=== PATIENT | female | born 1955 | race American Indian/Alaskan Native ===

== ENCOUNTER 2016-07-08 12:56 | Outpatient (CLI) | payer MEDICARE ==
--- NOTE | 2016-07-08 13:44 | Mammography Report ---
BILATERAL MAMMOGRAM: FINDINGS: Baseline examination. The breast tissue is extremely dense (>75% glandular). This may lower the sensitivity of mammography. No mass, distortion, suspicious calcification, or skin change is seen. CAD was utilized. IMPRESSION: Negative mammogram. There is no mammographic evidence of malignancy. RECOMMENDATION: Follow-up per ACS guidelines. BI-RADS CATEGORY: 1 = Negative ACR BI-RADS MAMMOGRAPHIC CODES: 0 = Needs additional imaging evaluation; 1 = Negative; 2 = Benign; 3 = Probably benign; 4 = Suspicious; 5 = Malignant; 6 = Known biopsy-proven malignancy COMMENT: 1. Dense breast tissue, i.e., adenosis, fibrocystic changes, etc., may obscure an underlying neoplasm. 2. Approximately 10% of cancers are not detected with mammography. 3. A negative mammography report should not delay biopsy if a clinically suspicious mass is present. COMMENT: Patient follow-up letters are generated in [place].
== END 2016-07-08 12:57 | disposition home or self-care (01) ==
LOC: MAMMO 12:56
PROVIDERS: ATTEND Internal Medicine
DX: Z12.31 Encounter for screening mammogram for malignant neoplasm of breast (principal)
CPT/HCPCS: 77067; G0202

== ENCOUNTER 2016-07-23 00:07 | Inpatient (IN) | payer MEDICARE ==
[2016-07-23] MEDS ORDERED: TYLENOL PO ONE ×2 (00:18→01:38)
[2016-07-23 00:46] LABS: Eosinophils % (Auto) 0.4 % (0.0-4.3); Hematocrit 49.2 % (30.3-42.9); Hemoglobin 16.3 gm/dl (10.1-14.3); Mean Corpuscular HGB Conc 33 % (30-34); Mean Corpuscular Hemoglobin 33 pg (28-32); Mean Corpuscular Volume 100 fl (79-97); Platelet Count 176 K/mm3 (140-440); Red Blood Count 4.91 M/mm3 (3.65-5.03); Red Cell Distribution Width 13.4 % (13.2-15.2); White Blood Count 7.6 K/mm3 (4.5-11.0)
[2016-07-23 01:05] LABS: BUN/Creatinine Ratio 14.28; Blood Urea Nitrogen 10 mg/dL (7-17); Calcium 9.1 mg/dL (8.4-10.2); Carbon Dioxide 33 mmol/L (22-30); Chloride 93.8 mmol/L (98-107); Glucose 85 mg/dL (65-100); Potassium 4.3 mmol/L (3.6-5.0); Sodium 137 mmol/L (137-145)
[2016-07-23 01:06] LABS: Anion Gap 15 mmol/L
[2016-07-23] MEDS ORDERED: XOPENEX IH ONE ×3 (01:38→08:30)
[2016-07-23] MEDS ORDERED: ZITHROMAX 500 MG in NACL 0.9% 250ML 250 ML IV ONE (01:39)
[2016-07-23] MEDS ORDERED: ROCEPHIN/NS 1 GM/50 ML 1 GM/50 ML BAG IV ONE ×2 (03:00→05:32)
[2016-07-23] MEDS ORDERED: ATIVAN PO ONE (03:04)
--- NOTE | 2016-07-23 03:05 | Emergency Department Report ---
ED Shortness of Breath HPI - General Chief Complaint: Dyspnea/Respdistress Stated Complaint: ANTHONY Time Seen by Provider: 07/23/16 01:34 Source: patient, EMS Mode of arrival: Stretcher Limitations: Other - History of Present Illness Initial Comments: 61 yo female with a past medical history of COPD oxygen dependent, asthma, and history of intubations presents to the hospital complaints of fever, cough, shortness of breath 1 day. Cough productive of brown sputum. This did not receive a flu shot this year. Patient complains of chest tightness associated with wheezing shortness of breath that is moderate to severe. A beer a 5 mg given prior to arrival. 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 - Related Data Home Medications Medication Instructions Recorded Confirmed Last Taken ALBUTEROL Inhaler [ProAir HFA 2 puff IH QID PRN 05/17/16 07/23/16 05/16/16 Inhaler] Prednisone [predniSONE 5 mg (6-Day 20 mg PO .TAPER 07/23/16 07/23/16 Unknown Pack, 21 Tabs)] Previous Rx's Medication Instructions Recorded Last Taken Type LORazepam [Ativan] 1 mg PO TID PRN #30 tablet 05/29/15 05/16/16 Rx Montelukast [Singulair] 10 mg PO QHS #30 tablet 04/21/16 05/16/16 Rx ALBUTEROL NEB's [Proventil 0.083% 2.5 mg IH Q2HR PRN #30 nebu 05/19/16 Unknown Rx NEBS] Allergies Allergy/AdvReac Type Severity Reaction Status Date / Time peanut Allergy Angioedema Verified 07/23/16 00:17 ipratropium bromide AdvReac Shortness Verified 09/11/13 07:39 [From Atrovent] of Breath ED Review of Systems ROS: Stated complaint: ANTHONY Other details as noted in HPI Comment: All other systems reviewed and negative Other: Constitutional: as per hpi Eyes: No eye pain visual changes ENT: No ear pain or throat pain Neck: Denies pain Respiratory: as per hpi Cardiovascular: Denies palpitations, syncope GI: Denies abdominal pain, nausea, vomiting, diarrhea : Denies dysuria, urinary frequency, or urgency Musculoskeletal: Denies back pain Skin: Denies rash, lesions, erythema Neurologic: Denies headache, numbness, weakness Psychiatric: Denies suicidal ideation, hallucinations ED Past Medical Hx - Past Medical History Previous Medical History?: Yes Hx Congestive Heart Failure: No Hx Diabetes: No Hx Asthma: Yes Hx COPD: Yes Hx Dementia: No Hx HIV: No Additional medical history: hx intubation - Surgical History Past Surgical History?: No - Social History Smoking Status: Former Smoker Substance Use Type: None - Medications Home Medications: Home Medications Medication Instructions Recorded Confirmed Last Taken Type LORazepam [Ativan] 1 mg PO TID PRN #30 tablet 05/29/15 07/23/16 05/16/16 Rx Montelukast [Singulair] 10 mg PO QHS #30 tablet 04/21/16 07/23/16 05/16/16 Rx ALBUTEROL Inhaler [ProAir HFA 2 puff IH QID PRN 05/17/16 07/23/16 05/16/16 History Inhaler] ALBUTEROL NEB's [Proventil 0.083% 2.5 mg IH Q2HR PRN #30 nebu 05/19/16 07/23/16 Unknown Rx NEBS] Prednisone [predniSONE 5 mg (6-Day 20 mg PO .TAPER 07/23/16 07/23/16 Unknown History Pack, 21 Tabs)] ED Physical Exam - General Limitations: Other - Other Other exam information: General: No limitations, patient is alert in no acute distress Head exam: Atraumatic, normocephalic Eyes exam: Normal appearance ENT: Moist mucous membrane, normal oropharynx Neck exam: Normal inspection, full range of motion Respiratory exam: Diminished breath sounds, tachypnea, mild expiratory wheezing Cardiovascular: Tachycardic regular rate Abdomen: Soft, nondistended, and nontender, with normal bowel sounds, no rebound, or guarding Extremity: Full range of motion normal inspection no deformity, no calf tenderness or edema Back: Normal Inspection, full range of motion, no tenderness Neurologic: Alert, oriented x3, cranial nerves intact, no motor or sensory deficit Psychiatric: normal affect, normal mood Skin: Warm, dry, intact ED Course Vital Signs 07/23/16 07/23/16 07/23/16 00:11 00:39 01:50 Temperature 102.6 F H Pulse Rate 130 H Pulse Rate [ 117 H Bilateral Throughout] Respiratory 27 H 24 Rate Respiratory 24 Rate [Bilateral Throughout] Blood Pressure 193/91 Blood Pressure 193/91 [Right] O2 Sat by Pulse 94 95 Oximetry 07/23/16 02:24 Temperature Pulse Rate Pulse Rate [ 119 H Bilateral Throughout] Respiratory Rate Respiratory 24 Rate [Bilateral Throughout] Blood Pressure Blood Pressure [Right] O2 Sat by Pulse Oximetry - Reevaluation(s) Reevaluation #1: 07/23/16 03:29 Patient treated with Solu-Medrol, Xopenex, Rocephin, azithromycin, and Tylenol with minimal improvement in symptoms. Ativan given as per requested to calm her down 07/23/16 03:30 ED Medical Decision Making - Lab Data Result diagrams: 07/23/16 00:32 07/23/16 00:32 Lab Results 07/23/16 07/23/16 Range/Units 00:32 00:32 WBC 7.6 (4.5-11.0) K/mm3 RBC 4.91 (3.65-5.03) M/mm3 Hgb 16.3 H (10.1-14.3) gm/dl Hct 49.2 H (30.3-42.9) % MCV 100 H (79-97) fl MCH 33 H (28-32) pg MCHC 33 (30-34) % RDW 13.4 (13.2-15.2) % Plt Count 176 (140-440) K/mm3 Lymph % (Auto) 14.6 (13.4-35.0) % [place] % (Auto) 3.9 (0.0-7.3) % Eos % (Auto) 0.4 (0.0-4.3) % Baso % (Auto) 1.0 (0.0-1.8) % Lymph # 1.1 L (1.2-5.4) K/mm3 [place] # 0.3 (0.0-0.8) K/mm3 Eos # 0.0 (0.0-0.4) K/mm3 Baso # 0.1 (0.0-0.1) K/mm3 Seg Neutrophils % 80.1 H (40.0-70.0) % Seg Neutrophils # 6.1 (1.8-7.7) K/mm3 Sodium 137 (137-145) mmol/L Potassium 4.3 (3.6-5.0) mmol/L Chloride 93.8 L (98-107) mmol/L Carbon Dioxide 33 H (22-30) mmol/L Anion Gap 15 mmol/L BUN 10 (7-17) mg/dL Creatinine 0.7 (0.7-1.2) mg/dL Estimated GFR > 60 ml/min BUN/Creatinine Ratio 14.28 % Glucose 85 (65-100) mg/dL Calcium 9.1 (8.4-10.2) mg/dL Troponin T < 0.010 (0.00-0.029) ng/mL - EKG Data -: EKG Interpreted by Me (sinus 118, jorden, no stemi) - Radiology Data Radiology results: image reviewed (cxr: ? rll infiltrate vs chronic lung markings) - Medical Decision Making Admit patient to hospital for continued respiratory symptoms. Patient is oxygen dependent with history of intubations. No pneumonia identified on x-ray however However patient febrile therefore covered with Rocephin and azithromycin given symptoms. - Differential Diagnosis pneumonia, bronchitis, COPD, viral syndrome Critical Care Time: No Critical care attestation.: If time is entered above; I have spent that time in minutes in the direct care of this critically ill patient, excluding procedure time. ED Disposition Clinical Impression: COPD exacerbation, Fever, HTN (hypertension) Disposition: OP ADMITTED IP TO THIS HOSP Is pt being admited?: Yes Condition: Stable Instructions: Hypertension (ED) Time of Disposition: 03:05 (Dr vasquez/hosp)
[2016-07-23 05:09] LABS: ISTAT Base Excess 12; ISTAT HCO3 39.2; ISTAT PCO2 91.1 (35-45); ISTAT PH 7.242 (7.35-7.45); ISTAT PO2 64 (80-105); ISTAT SO2 86; ISTAT TCO2 42
[2016-07-23 05:09] LABS: ISTAT Base Excess 9; ISTAT HCO3 36.8; ISTAT PH 7.229 (7.35-7.45); ISTAT PO2 82 (80-105); ISTAT SO2 93; ISTAT TCO2 39
--- NOTE | 2016-07-23 06:12 | Admit Criteria Form ---
Admission Criteria Documentation: COPD Clinical Indications for Admission to Inpatient Care (Place 'X' for any and all applicable criteria): Admission is indicated for ANY ONE of the following (1)(2)(3): [X ]I. Acute exacerbation by high-risk comorbidity (e.g., pneumonia, dysrhythmia, heart failure, pleural effusion, pneumothorax) or severe underlying COPD (e.g., steroid dependent) [ ]II. Inpatient admission required rather than observation care (see Chronic Obstructive Pulmonary Disease: Observation Care) because of ANY ONE of the following: [ ]a) New or pre-existing signs or symptoms of COPD (eg, dyspnea or Tachypnea at rest or with minimal activity) that persist despite outpatient and observation care treatment [ ]b) New-onset hypoxemia (room air SaO2 less than 90%, PO2 less than 60 mm Hg (8.0 kPa)) that persists despite outpatient and observation care treatment [ ]c) Worsening of pre-existing hypoxemia (eg, new or increased requirement for supplemental oxygen to maintain oxygenation at baseline level) that persists despite outpatient and observation care treatment, with oxygen treatment needs performable only in acute inpatient setting [ ]d) Hypercarbia (PCO2 greater than 40 mm Hg (5.3 kPa))-induced respiratory acidosis (pH less than 7.35) that persists despite outpatient and observation care treatment [ ]e) Supplemental oxygen or respiratory treatments for over 24 hours that are performable only in acute inpatient setting [ ]f) Chest tube placement with active evacuation (e.g., suction, drainage) (5) [ ]g) Other condition, treatment or monitoring requiring inpatient admission [ ]III. Planned invasive surgical or diagnostic procedures requiring acute- care hospitalization [ ]IV. Acute respiratory failure (e.g., uncompensated hypercarbia, severe hypoxemia) [ ]V. Severe comorbid condition (e.g., severe steroid myopathy, acute vertebral fracture) that has acutely worsened pulmonary function [ ]. Confusion state, lethargy, obtundation, stupor or coma Extended stay beyond goal length of stay may be needed for (31)(32): [ ]a ) Respiratory Failure. [ ]b) Severe or persisting hypoxemia or hypercarbia [ ]c) Severe or persistent dyspnea [ ]d) Comorbidities (e.g. chronic heart failure, atrial fibrillation with rapid response, pneumonia) [ ]e) Malnutrition The original [facility] content created by [facility] has been revised. The portions of the content which have been revised are identified through the use of italic text or in bold, and [facility] has neither reviewed nor approved the modified material. All other unmodified content is copyright [facility]. Please see references footnoted in the original [facility] edition 2016 Admission Criteria Met: Yes
[2016-07-23] MEDS ORDERED: PROAIR IH PRN (07:15)
[2016-07-23] MEDS ORDERED: DUONEB 0.5 MG-3 MG/3 ML SOLN IH PRN (07:15)
[2016-07-23 07:50] LABS: ISTAT Base Excess 7; ISTAT HCO3 34.1; ISTAT PCO2 80.8 (35-45); ISTAT PH 7.233 (7.35-7.45); ISTAT PO2 58 (80-105); ISTAT SO2 83; ISTAT TCO2 37
[2016-07-23] MEDS ORDERED: DUONEB 0.5 MG-3 MG/3 ML SOLN IH SCH (08:00)
[2016-07-23] MEDS ORDERED: PROVENTIL IH PRN (08:30)
--- NOTE | 2016-07-23 08:57 | Event Note ---
Date: 07/23/16 See H/p in reports Acute resp failure with Hypercapnia Copd exacerbation Htn sec to resp distress in ER-resolved now
--- NOTE | 2016-07-23 09:07 | History and Physical Report ---
CHIEF COMPLAINT: Increasing shortness of breath, fever and cough for 1 day. HISTORY OF PRESENT ILLNESS: A 61-year-old -[place] female comes in for increasing shortness of breath of 1 day duration. Cough productive of brown sputum. The patient has history of intubations in the past. The patient did not receive a flu shot this year. The patient also has chest tightness and severe wheezing and shortness of breath. No altered sensorium. Low-grade fever present. PAST MEDICAL HISTORY: Significant for COPD; asthma; and hypertension, questionable. PAST SURGICAL HISTORY: None. ADDITIONAL MEDICAL HISTORY: The patient was intubated in the past. SOCIAL HISTORY: Former smoker. CURRENT MEDICATIONS: Lorazepam 1 mg t.i.d., Singulair 10 mg p.o. at bedtime, albuterol inhaler 2 puffs q.i.d., albuterol nebulizer solution 2.5 mg q.2h. p.r.n., and prednisone 20 mg p.o. daily. REVIEW OF SYSTEMS: CONSTITUTIONAL: No fever. No weight loss, no weight gain. HEENT: No sore throat, no postnasal drip. NECK: No neck stiffness. CARDIOVASCULAR AND RESPIRATORY SYSTEM: Severe wheezing present. Cough productive of mucoid sputum. GASTROINTESTINAL: No nausea, no vomiting, no diarrhea. EXTREMITIES: No joint pain, no muscle pain. CENTRAL NERVOUS SYSTEM: No syncope, no seizures. PSYCHIATRIC: Normal mood, no depression. SKIN: No rashes. ENDOCRINE: No polyphagia, polydipsia, polyuria. No cold intolerance. A 14-point review of systems is essentially otherwise negative other than the respiratory system and history present illness. PHYSICAL EXAMINATION: VITAL SIGNS: On examination, middle-aged female, in moderate respiratory distress. VITAL SIGNS: Temperature 102.6, pulse is 130, respiratory rate is 27, blood pressure is 193/91, pulse is 119. HEENT: Unremarkable. NECK: Supple. No lymphadenopathy, no thyromegaly. LUNGS: Bilateral inspiratory and expiratory rhonchi present. Decreased air entry. Tachypneic. CVS: S1, S2 heard. No gallop, no murmur, no rub. Apical impulse in left fifth intercostal space and midclavicular line. ABDOMEN: Soft and benign. No hepatosplenomegaly. No guarding, no rigidity. Hernial orifices are normal. EXTREMITIES: Good pedal pulses. No pedal edema. CENTRAL NERVOUS SYSTEM: Alert and oriented x 4. Nonfocal exam. SKIN: Normal. LABORATORY DATA: Significant for white count of 7600, H and H of 16.3 and 49.2, platelet count 176,000. Blood gas, pH is 7.229; pCO2 is 88; pO2 is 82. Bicarbonate is 37. O2 sats are 93%. Sodium is 137, potassium is 4.3, chloride is 93.8 and bicarbonate is 20-33. BUN and creatinine is 10 and 0.7. Glucose is 85, calcium is 9.1. Troponin less than 0.010. Chest x-ray, questionable right lower lobe infiltrate versus chronic lung markings. EKG, sinus tachycardia, heart rate of 118. ASSESSMENT AND PLAN: 1. Acute respiratory failure with hypercapnia. Aggressive bronchodilator treatment along with Rocephin 2 grams IV piggyback q.24h. and Zithromax 500 mg q.24h. to cover the atypicals. Solu-Medrol 125 mg q.8h. 2. Hypertension. Initially her blood pressures were high, but blood pressures have come down to normal. The patient does not have a history of hypertension, so will not start her on any antihypertensives. 3. Chronic obstructive pulmonary disease exacerbation. Continue DuoNeb, Solu-Medrol and antibiotics. 4. Deep venous thrombosis prophylaxis. Lovenox 40 mg subcutaneous daily. The patient is being admitted to ICU, Intensive Care Unit. CRITICAL CARE STATEMENT: The high probability of a clinically significant sudden or life-threatening deterioration of the cardiorespiratory system required my full-length direct attention, intervention, and personal management. The aggregate critical care time was 40 minutes. The time is in addition to the time spent performing reported procedures, but includes the following data review and interpretation, the patient's assessment and monitoring of vital signs, documentation, medication orders, and management. JOB# [id number] JARED/SHAHEEN
--- NOTE | 2016-07-23 09:29 | XRay Report ---
PORTABLE CHEST: INDICATION: Shortness of breath. COMPARISON: 05/17/2016 FINDINGS: Portable, frontal chest radiograph again demonstrates normal cardiomediastinal silhouette and well-expanded lungs. No large pleural effusions or CHF. Prominent lung markings centrally with slight peribronchial thickening may be identified without dense focal consolidation. EKG leads. Unremarkable bones. CONCLUSION: Slight peribronchial thickening. Please correlate. Thank you for the opportunity to participate in this patient's care.
[2016-07-23] MEDS: LOVENOX SUB-Q SCH (09:30)
[2016-07-23 09:37] LABS: ISTAT Base Excess 5; ISTAT HCO3 32.5; ISTAT PCO2 76.2 (35-45); ISTAT PH 7.238 (7.35-7.45); ISTAT PO2 72 (80-105); ISTAT SO2 90; ISTAT TCO2 35
[2016-07-23] MEDS ORDERED: ROCEPHIN 2,000 MG in NACL 0.9% 50 ML IV SCH (10:00)
[2016-07-23] MEDS: ZITHROMAX 500 MG in NACL 0.9% 250ML 250 ML IV SCH (10:11)
[2016-07-23] MEDS: ROCEPHIN/NS 2 GM/100 ML 2 GM/100 ML BAG IV SCH (12:11)
[2016-07-23] MEDS: XOPENEX IH SCH ×2 (14:24→20:24)
[2016-07-23] MEDS: D5NS 1,000 ML IV SCH (14:50)
--- NOTE | 2016-07-23 17:22 | Event Note ---
Date: 07/23/16 Patient admitted earlier this morning, remains on BiPAP by physical exam still has not unimpressive and movement. But she is more awake and alert. She is to be transferred to the ICU. Cultures remain negative so far. We'll monitor closely as patient has had intubations in the past. Continue her corticosteroids. 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 Monitor labs in a.m. Continue antibiotics. No further fever at this point.
[2016-07-24] MEDS: ATIVAN PO PRN ×2 (00:09→21:22)
[2016-07-24] MEDS: XOPENEX IH SCH (02:08)
[2016-07-24] MEDS: D5NS 1,000 ML IV SCH (04:10)
[2016-07-24] MEDS: PROVENTIL IH SCH ×3 (07:33→21:28)
[2016-07-24] MEDS: LOVENOX SUB-Q SCH (10:29)
[2016-07-24] MEDS: ROCEPHIN/NS 2 GM/100 ML 2 GM/100 ML BAG IV SCH (10:30)
[2016-07-24] MEDS: ZITHROMAX 500 MG in NACL 0.9% 250ML 250 ML IV SCH (10:34)
--- NOTE | 2016-07-24 11:05 | Consultation ---
History of Present Illness Consult date: 07/24/16 Requesting physician: YAZMIN PRASAD Reason for consult: dyspnea, asthma, hypoxemia History of present illness: 61 y/o female with known asthma, used to be a patient of Dr. Gan who presented to the ED with acute on chronic respiratory failure. Patient wears 2 liters of NC at home. Had a sick contact and then developed what sounds like was bronchitis that was not adequately treated that led to respiratory failure. Required continuous bipap therapy on yesterday and has since been weaned to HFNC and stable. Past History Past Medical History: other ( asthma) Past Surgical History: No surgical history Social history: no significant social history Family history: no significant family history Medications and Allergies Allergies Allergy/AdvReac Type Severity Reaction Status Date / Time peanut Allergy Angioedema Verified 07/23/16 00:17 ipratropium bromide AdvReac Shortness Verified 09/11/13 07:39 [From Atrovent] of Breath Home Medications Medication Instructions Recorded Confirmed Last Taken Type LORazepam [Ativan] 1 mg PO TID PRN #30 tablet 05/29/15 07/23/16 05/16/16 Rx Montelukast [Singulair] 10 mg PO QHS #30 tablet 04/21/16 07/23/16 05/16/16 Rx ALBUTEROL Inhaler [ProAir HFA 2 puff IH QID PRN 05/17/16 07/23/16 05/16/16 History Inhaler] ALBUTEROL NEB's [Proventil 0.083% 2.5 mg IH Q2HR PRN #30 nebu 05/19/16 07/23/16 Unknown Rx NEBS] Prednisone [predniSONE 5 mg (6-Day 20 mg PO .TAPER 07/23/16 07/23/16 Unknown History Pack, 21 Tabs)] Active Meds: Active Medications Albuterol (Proventil) 2.5 mg IH Q2HR PRN PRN Reason: Shortness Of Breath Albuterol (Proventil) 2.5 mg IH Q6HR [facility] Last Admin: 07/24/16 07:33 Dose: 2.5 mg Enoxaparin Sodium (Lovenox) 40 mg SUB-Q QDAY [facility] Last Admin: 07/24/16 10:29 Dose: 40 mg Azithromycin 500 mg/ Sodium (Chloride) 250 mls @ 250 mls/hr IV Q24HR [facility] Last Admin: 07/24/16 10:34 Dose: 250 mls/hr Ceftriaxone Sodium (Rocephin/Ns 2 Gm/100 Ml) 2 gm in 100 mls @ 200 mls/hr IV Q24HR [facility] Last Admin: 07/24/16 10:30 Dose: 200 mls/hr Dextrose/Sodium Chloride (D5ns) 1,000 mls @ 75 mls/hr IV DIRECT [facility] Last Admin: 07/24/16 04:10 Dose: 75 mls/hr Lorazepam (Ativan) 1 mg PO TID PRN PRN Reason: Anxiety Last Admin: 07/24/16 00:09 Dose: 1 mg Methylprednisolone Sodium Succinate (Solu-Medrol) 60 mg IV Q6HR [facility] Montelukast Sodium (Singulair) 10 mg PO QHS [facility] Review of Systems All systems: negative Physical Examination Vital signs: Vital Signs Temp Pulse Resp BP Pulse Ox 102.6 F H 130 H 27 H 193/91 94 07/23/16 00:11 07/23/16 00:11 07/23/16 00:11 07/23/16 00:11 07/23/16 00:11 General appearance: no acute distress, alert Eyes: injected ENT: oropharynx moist Neck: supple Ascultation: Bilateral: diminished breath sounds, wheezes (scant) Percussion: Bilateral: not dull Tactile fremitus: Bilateral: normal Cardiovascular: regular rate and rhythm Gastrointestinal: normoactive bowel sounds, soft, non-distended Extremities: no cyanosis, no edema normal mental status, non-focal exam mood appropriate Results - Laboratory Findings CBC and BMP: 07/23/16 00:32 07/23/16 00:32 ABG POC ABG pH 7.238 (7.35-7.45) L 07/23/16 09:33 POC ABG pCO2 76.2 (35-45) H 07/23/16 09:33 POC ABG pO2 72 (80-105) L 07/23/16 09:33 POC ABG HCO3 32.5 07/23/16 09:33 POC ABG Total CO2 35 07/23/16 09:33 POC ABG O2 Sat 90 07/23/16 09:33 Abnormal lab findings: Abnormal Labs 07/23/16 07/23/16 07/23/16 04:38 05:01 07:41 POC ABG pH 7.242 L 7.229 L 7.233 L POC ABG pCO2 91.1 H 88.0 H 80.8 H POC ABG pO2 64 L 58 L 07/23/16 09:33 POC ABG pH 7.238 L POC ABG pCO2 76.2 H POC ABG pO2 72 L - Diagnostic Findings Chest x-ray: image reviewed (hyperinflation but clear) Assessment and Plan 61 y/o female with with acute on chronic respiratory failure, thought secondary to acute bronchitis. 1. Continue HFNC during the day and bipap at night 2. Changed steroids to 60q6 3. Will add BID pulmicort and brovana 4. Continue singulair 5. Feel that patient is ok for transfer to telemetry floor. Will continue to follow there. CCT 31 minutes.
[2016-07-24] MEDS: SINGULAIR PO SCH ×2 (14:36→21:21)
--- NOTE | 2016-07-24 16:09 | Progress Note ---
Assessment and Plan Assessment and plan: Patient is a 61 yo female with a past medical history of COPD oxygen dependent, asthma, and history of intubations presents to the hospital complaints of fever , cough, shortness of breath 1 day, with associated chest tightness. She was noted to have severe wheezing in the ER was started on BiPAP and she was awake alert and oriented and could protect her airways.. Cough productive of brown sputum. * Acute on chronic Hypercapnia respiratory failure with hypoxia * Presumed acute bronchitis +/-bacterial versus viral * Febrile condition * Moderate Protein calorie malnutrition Plan * Patient shows some mild improvement, no longer requiring continuous BiPAP but will benefit from it that night * , Transferred to the medical floor * Agree with tapering steroids * Continue with Pulmicort and Brovana and Singulair per cake maker * DVT and GI prophylaxis * P[facility] consult for malnutrition History Interval history: Follow-up shortness of breath Patient seen and examined this morning, still with mild shortness of breath but now off of BiPAP Denies any chest pain, nausea, vomiting, diarrhea No fever noted blood pressure controlled No adverse events reported to me by nursing staff Hospitalist Physical - Physical exam Narrative exam: VITAL SIGNS: Reviewed. GENERAL: The patient appeared cachectic. Vital signs as documented. HEAD: No signs of head trauma. Temporal wasting EYES: Pupils are equal. Extraocular motions intact. EARS: Hearing grossly intact. MOUTH: Oropharynx is normal. NECK: No adenopathy, no JVD. CHEST: Chest with expiratory wheeze breath sounds bilaterally. CARDIAC: Regular rate and rhythm. S1 and S2, without murmurs, gallops, or rubs. VASCULAR: No Edema. Peripheral pulses normal and equal in all extremities. ABDOMEN: Soft, without detectable tenderness. No sign of distention. No rebound or guarding, and no masses palpated. Bowel Sounds normal. MUSCULOSKELETAL: Good range of motion of all major joints. Extremities without clubbing, cyanosis or edema. NEUROLOGIC EXAM: Alert and oriented x 3. No focal sensory or strength deficits. Speech normal. Follows commands. PSYCHIATRIC: Mood normal. SKIN: No rash or lesions. - Constitutional Vitals: Temp Pulse Resp BP Pulse Ox 98.1 F 91 H 17 125/77 92 07/24/16 12:00 07/24/16 14:00 07/24/16 14:00 07/24/16 14:00 07/24/16 14:00 Results - Labs CBC & Chem 7: 07/23/16 00:32 07/23/16 00:32 Labs: Laboratory Last Values WBC 7.6 K/mm3 (4.5-11.0) 07/23/16 00:32 RBC 4.91 M/mm3 (3.65-5.03) 07/23/16 00:32 Hgb 16.3 gm/dl (10.1-14.3) H 07/23/16 00:32 Hct 49.2 % (30.3-42.9) H 07/23/16 00:32 MCV 100 fl (79-97) H 07/23/16 00:32 MCH 33 pg (28-32) H 07/23/16 00:32 MCHC 33 % (30-34) 07/23/16 00:32 RDW 13.4 % (13.2-15.2) 07/23/16 00:32 Plt Count 176 K/mm3 (140-440) 07/23/16 00:32 Lymph % (Auto) 14.6 % (13.4-35.0) 07/23/16 00:32 [place] % (Auto) 3.9 % (0.0-7.3) 07/23/16 00:32 Eos % (Auto) 0.4 % (0.0-4.3) 07/23/16 00:32 Baso % (Auto) 1.0 % (0.0-1.8) 07/23/16 00:32 Lymph # 1.1 K/mm3 (1.2-5.4) L 07/23/16 00:32 [place] # 0.3 K/mm3 (0.0-0.8) 07/23/16 00:32 Eos # 0.0 K/mm3 (0.0-0.4) 07/23/16 00:32 Baso # 0.1 K/mm3 (0.0-0.1) 07/23/16 00:32 Seg Neutrophils % 80.1 % (40.0-70.0) H 07/23/16 00:32 Seg Neutrophils # 6.1 K/mm3 (1.8-7.7) 07/23/16 00:32 POC ABG pH 7.238 (7.35-7.45) L 07/23/16 09:33 POC ABG pCO2 76.2 (35-45) H 07/23/16 09:33 POC ABG pO2 72 (80-105) L 07/23/16 09:33 POC ABG HCO3 32.5 07/23/16 09:33 POC ABG Total CO2 35 07/23/16 09:33 POC ABG O2 Sat 90 07/23/16 09:33 POC ABG Base Excess 5 07/23/16 09:33 FiO2 40 % 07/23/16 09:33 Sodium 137 mmol/L (137-145) 07/23/16 00:32 Potassium 4.3 mmol/L (3.6-5.0) 07/23/16 00:32 Chloride 93.8 mmol/L (98-107) L 07/23/16 00:32 Carbon Dioxide 33 mmol/L (22-30) H 07/23/16 00:32 Anion Gap 15 mmol/L 07/23/16 00:32 BUN 10 mg/dL (7-17) 07/23/16 00:32 Creatinine 0.7 mg/dL (0.7-1.2) 07/23/16 00:32 Estimated GFR > 60 ml/min 07/23/16 00:32 BUN/Creatinine Ratio 14.28 % 07/23/16 00:32 Glucose 85 mg/dL (65-100) 07/23/16 00:32 Calcium 9.1 mg/dL (8.4-10.2) 07/23/16 00:32 Troponin T < 0.010 ng/mL (0.00-0.029) 07/23/16 00:32
[2016-07-24] MEDS: BROVANA NEBU IH SCH (20:34)
[2016-07-24] MEDS: PULMICORT IH SCH (20:34)
[2016-07-25] MEDS: PROVENTIL IH SCH ×4 (02:01→21:20)
[2016-07-25] MEDS: PULMICORT IH SCH ×2 (08:19→21:19)
[2016-07-25] MEDS: BROVANA NEBU IH SCH ×2 (08:19→21:19)
[2016-07-25] MEDS: LOVENOX SUB-Q SCH (10:07)
--- NOTE | 2016-07-25 10:54 | Progress Note ---
Assessment and Plan 61 y/o female with with acute on chronic respiratory failure, thought secondary to acute bronchitis. 1. Wean HFNC for sats >88% and comfort 2. Changed steroids to 60q6, will start to taper tomorrow 3. Continue BID pulmicort and brovana 4. Continue singulair 5. OOB to chair at least and then some ambulation and PT once off of HFNC. Subjective Date of service: 07/25/16 Interval history: No acute events. Asleep. HFNC down to 30 and 35%. Wore BIPAP last night and tolerated it. Objective Vital Signs - 12hr 07/25/16 07/25/16 07/25/16 01:11 02:01 02:12 Temperature 98.1 F Pulse Rate [ 80 81 Anterior Bilateral Throughout] Pulse Rate [ Left Radial] Pulse Rate [ 87 Right Dorsalis Pedis] Respiratory 23 Rate Respiratory 23 22 Rate [Anterior Bilateral Throughout] Blood Pressure 122/61 [Left Arm] O2 Sat by Pulse 95 Oximetry 07/25/16 07/25/16 07/25/16 05:30 08:19 08:24 Temperature 98.5 F Pulse Rate [ 75 Anterior Bilateral Throughout] Pulse Rate [ Left Radial] Pulse Rate [ 57 L Right Dorsalis Pedis] Respiratory 20 Rate Respiratory 18 Rate [Anterior Bilateral Throughout] Blood Pressure 107/50 [Left Arm] O2 Sat by Pulse 99 95 95 Oximetry 07/25/16 07/25/16 08:34 08:49 Temperature 97.9 F Pulse Rate [ 84 Anterior Bilateral Throughout] Pulse Rate [ 92 H Left Radial] Pulse Rate [ Right Dorsalis Pedis] Respiratory 20 Rate Respiratory 20 Rate [Anterior Bilateral Throughout] Blood Pressure 129/66 [Left Arm] O2 Sat by Pulse 95 Oximetry Constitutional: no acute distress, alert Eyes: injected ENT: oropharynx moist Neck: supple Ascultation: Bilateral: diminished breath sounds, wheezes (scant) Percussion: Bilateral: not dull Tactile fremitus: Bilateral: normal Cardiovascular: regular rate and rhythm Gastrointestinal: normoactive bowel sounds, soft, non-distended Extremities: no cyanosis, no edema Neurologic: normal mental status, non-focal exam Psychiatric: mood appropriate CBC and BMP: 07/23/16 00:32 07/23/16 00:32 ABG, PT/INR, D-dimer: ABG POC ABG pH 7.238 (7.35-7.45) L 07/23/16 09:33 POC ABG pCO2 76.2 (35-45) H 07/23/16 09:33 POC ABG pO2 72 (80-105) L 07/23/16 09:33 POC ABG HCO3 32.5 07/23/16 09:33 POC ABG Total CO2 35 07/23/16 09:33 POC ABG O2 Sat 90 07/23/16 09:33 Abnormal lab findings: Abnormal Labs 07/23/16 07/23/16 07/23/16 04:38 05:01 07:41 POC ABG pH 7.242 L 7.229 L 7.233 L POC ABG pCO2 91.1 H 88.0 H 80.8 H POC ABG pO2 64 L 58 L 07/23/16 09:33 POC ABG pH 7.238 L POC ABG pCO2 76.2 H POC ABG pO2 72 L
[2016-07-25] MEDS: ZITHROMAX 500 MG in NACL 0.9% 250ML 250 ML IV SCH (10:57)
[2016-07-25] MEDS: ROCEPHIN/NS 2 GM/100 ML 2 GM/100 ML BAG IV SCH (13:00)
[2016-07-25] MEDS: TYLENOL PO PRN (15:44)
[2016-07-25] MEDS: SINGULAIR PO SCH (21:42)
[2016-07-25] MEDS: ATIVAN PO PRN (21:42)
--- NOTE | 2016-07-25 23:46 | Progress Note ---
Assessment and Plan Assessment and Plan 1. Acute on chronic Hypercapnia respiratory failure with hypoxia: On BIPAP at night and suplemental oxygen via NC in the day. Taper steriod 2. Acute bronchitis +/-bacterial versus viralOn Pulmacort and brovena 3. Febrile condition: Resolved 4. Moderate Protein calorie malnutrition: Dietary consult DVT and GI PPx with Lovenox and pepcid Subjective Date of service: 07/25/16 Principal diagnosis: COPD exacerbation, acute respiratory failure Interval history: No new complaints. Still having Shortness of breath with productive cough, no fever Objective - Constitutional Vitals: Vital Signs - 12hr 07/25/16 07/25/16 07/25/16 12:00 13:26 13:30 Temperature 98 F Pulse Rate Pulse Rate [ 82 Anterior Bilateral Throughout] Pulse Rate [ From Monitor] Pulse Rate [ 86 Right Dorsalis Pedis] Respiratory 20 Rate Respiratory 18 Rate [Anterior Bilateral Throughout] Blood Pressure 124/64 [Left Arm] O2 Sat by Pulse 96 97 Oximetry 07/25/16 07/25/16 07/25/16 13:39 15:30 15:44 Temperature 98.2 F Pulse Rate Pulse Rate [ 77 Anterior Bilateral Throughout] Pulse Rate [ 74 From Monitor] Pulse Rate [ Right Dorsalis Pedis] Respiratory 18 18 Rate Respiratory 18 Rate [Anterior Bilateral Throughout] Blood Pressure 137/74 [Left Arm] O2 Sat by Pulse 94 Oximetry 07/25/16 07/25/16 07/25/16 16:44 21:00 21:19 Temperature Pulse Rate 69 Pulse Rate [ 67 Anterior Bilateral Throughout] Pulse Rate [ From Monitor] Pulse Rate [ Right Dorsalis Pedis] Respiratory 20 21 Rate Respiratory 20 Rate [Anterior Bilateral Throughout] Blood Pressure [Left Arm] O2 Sat by Pulse 99 Oximetry 07/25/16 07/25/16 07/25/16 21:30 21:42 22:00 Temperature 98.6 F Pulse Rate Pulse Rate [ 71 Anterior Bilateral Throughout] Pulse Rate [ From Monitor] Pulse Rate [ 80 Right Dorsalis Pedis] Respiratory 20 Rate Respiratory 20 Rate [Anterior Bilateral Throughout] Blood Pressure 153/63 [Left Arm] O2 Sat by Pulse 95 98 Oximetry General appearance: Present: no acute distress, well-nourished - EENT Eyes: PERRL, EOM intact ENT: hearing intact, clear oral mucosa Ears: bilateral: normal - Neck Neck: supple, normal ROM - Respiratory Respiratory effort: normal Respiratory: bilateral: diminished - Cardiovascular Rhythm: regular Heart Sounds: Present: S1 & S2. Absent: gallop, rub Extremities: pulses intact, No edema, normal color, Full ROM - Gastrointestinal General gastrointestinal: Present: soft, non-tender, non-distended, normal bowel sounds - Genitourinary Female genitourinary: normal - Integumentary Integumentary: clear, warm, dry - Musculoskeletal Musculoskeletal: 1, strength equal bilaterally - Neurologic Neurologic: moves all extremities - Psychiatric Psychiatric: memory intact, appropriate mood/affect, intact judgment & insight - Labs CBC & Chem 7: 07/23/16 00:32 07/23/16 00:32
[2016-07-26] MEDS: PROVENTIL IH SCH ×5 (01:24→20:19)
[2016-07-26] MEDS: ROBITUSSIN DM PO PRN ×2 (05:39→21:44)
[2016-07-26] MEDS: PULMICORT IH SCH ×2 (08:22→20:20)
[2016-07-26] MEDS: BROVANA NEBU IH SCH ×2 (08:22→20:20)
[2016-07-26] MEDS: LOVENOX SUB-Q SCH (10:44)
[2016-07-26] MEDS: ZITHROMAX 500 MG in NACL 0.9% 250ML 250 ML IV SCH (10:44)
[2016-07-26] MEDS: ROCEPHIN/NS 2 GM/100 ML 2 GM/100 ML BAG IV SCH (10:44)
--- NOTE | 2016-07-26 11:08 | Progress Note ---
Assessment and Plan 61 y/o female with with acute on chronic respiratory failure, thought secondary to acute bronchitis. 1. Down to nasal cannula good sats. Encouraged ambulation and oob to chair. Will speak to nursing about this. 2. Keeps steroids at current dosing 3. Continue BID pulmicort and brovana 4. Continue singulair 5. Suggest PT consult Subjective Date of service: 07/26/16 Principal diagnosis: COPD exacerbation, acute respiratory failure Interval history: No acute events. Feels better but still has chest tightness. Very winded with exertion but this is to be expected. Remainder is negative. Objective Vital Signs - 12hr 07/26/16 07/26/16 07/26/16 01:00 06:34 08:10 Temperature 97.5 F L 97.5 F L 97.9 F Pulse Rate [ Anterior Bilateral Throughout] Pulse Rate [ 64 Left Radial] Pulse Rate [ 78 Right Dorsalis Pedis] Pulse Rate [ 56 L Right Radial] Respiratory 22 18 24 Rate Respiratory Rate [Anterior Bilateral Throughout] Blood Pressure 159/71 148/72 133/65 [Left Arm] O2 Sat by Pulse 98 97 Oximetry 07/26/16 07/26/16 08:22 08:36 Temperature Pulse Rate [ 80 75 Anterior Bilateral Throughout] Pulse Rate [ Left Radial] Pulse Rate [ Right Dorsalis Pedis] Pulse Rate [ Right Radial] Respiratory Rate Respiratory 20 18 Rate [Anterior Bilateral Throughout] Blood Pressure [Left Arm] O2 Sat by Pulse 95 Oximetry Constitutional: no acute distress, alert Eyes: injected ENT: oropharynx moist Neck: supple Ascultation: Bilateral: diminished breath sounds, wheezes (scant) Percussion: Bilateral: not dull Tactile fremitus: Bilateral: normal Cardiovascular: regular rate and rhythm Gastrointestinal: normoactive bowel sounds, soft, non-distended Extremities: no cyanosis, no edema Neurologic: normal mental status, non-focal exam Psychiatric: mood appropriate CBC and BMP: 07/23/16 00:32 07/23/16 00:32 ABG, PT/INR, D-dimer: ABG POC ABG pH 7.238 (7.35-7.45) L 07/23/16 09:33 POC ABG pCO2 76.2 (35-45) H 07/23/16 09:33 POC ABG pO2 72 (80-105) L 07/23/16 09:33 POC ABG HCO3 32.5 07/23/16 09:33 POC ABG Total CO2 35 07/23/16 09:33 POC ABG O2 Sat 90 07/23/16 09:33 Abnormal lab findings: Abnormal Labs 07/23/16 07/23/16 07/23/16 04:38 05:01 07:41 POC ABG pH 7.242 L 7.229 L 7.233 L POC ABG pCO2 91.1 H 88.0 H 80.8 H POC ABG pO2 64 L 58 L 07/23/16 09:33 POC ABG pH 7.238 L POC ABG pCO2 76.2 H POC ABG pO2 72 L
--- NOTE | 2016-07-26 17:25 | Progress Note ---
Assessment and Plan Assessment and Plan 1. Acute on chronic Hypercapnia respiratory failure with hypoxia: On BIPAP at night and suplemental oxygen via NC in the day. Taper steriod 2. Acute bronchitis +/-bacterial versus viral. On Pulmacort and brovena 3. Febrile condition: Resolved 4. Moderate Protein calorie malnutrition: Dietary consult Check labs DVT and GI PPx with Lovenox and pepcid Subjective Date of service: 07/26/16 Principal diagnosis: COPD exacerbation, acute respiratory failure Interval history: No new complaints. Still having Shortness of breath with productive cough, though less with [place]. no fever Objective - Constitutional Vitals: Vital Signs - 12hr 07/26/16 07/26/16 07/26/16 06:34 08:10 08:22 Temperature 97.5 F L 97.9 F Pulse Rate Pulse Rate [ 80 Anterior Bilateral Throughout] Pulse Rate [ From Monitor] Pulse Rate [ 64 Left Radial] Pulse Rate [ 56 L Right Radial] Respiratory 18 24 Rate Respiratory 20 Rate [Anterior Bilateral Throughout] Blood Pressure 148/72 133/65 [Left Arm] O2 Sat by Pulse 97 95 Oximetry 07/26/16 07/26/16 07/26/16 08:36 11:00 12:32 Temperature Pulse Rate 59 L Pulse Rate [ 75 Anterior Bilateral Throughout] Pulse Rate [ From Monitor] Pulse Rate [ Left Radial] Pulse Rate [ Right Radial] Respiratory 14 Rate Respiratory 18 Rate [Anterior Bilateral Throughout] Blood Pressure [Left Arm] O2 Sat by Pulse Oximetry 07/26/16 07/26/16 07/26/16 12:35 13:38 13:48 Temperature Pulse Rate Pulse Rate [ 87 107 H Anterior Bilateral Throughout] Pulse Rate [ 84 From Monitor] Pulse Rate [ Left Radial] Pulse Rate [ Right Radial] Respiratory 16 Rate Respiratory 20 20 Rate [Anterior Bilateral Throughout] Blood Pressure 143/70 [Left Arm] O2 Sat by Pulse 95 Oximetry General appearance: Present: no acute distress, well-nourished - EENT Eyes: PERRL, EOM intact ENT: hearing intact, clear oral mucosa Ears: bilateral: normal - Neck Neck: supple, normal ROM - Respiratory Respiratory effort: normal Respiratory: bilateral: CTA - Cardiovascular Rhythm: regular Heart Sounds: Present: S1 & S2. Absent: gallop, rub Extremities: pulses intact, No edema, normal color, Full ROM - Gastrointestinal General gastrointestinal: Present: soft, non-tender, non-distended, normal bowel sounds - Integumentary Integumentary: clear, warm, dry - Musculoskeletal Musculoskeletal: 1, strength equal bilaterally - Neurologic Neurologic: moves all extremities - Psychiatric Psychiatric: memory intact, appropriate mood/affect, intact judgment & insight - Labs CBC & Chem 7: 07/23/16 00:32 07/23/16 00:32
[2016-07-26] MEDS: SINGULAIR PO SCH (21:42)
[2016-07-26] MEDS: ATIVAN PO PRN (21:42)
[2016-07-26] MEDS: TYLENOL PO PRN (21:44)
[2016-07-27] MEDS: PROVENTIL IH SCH ×4 (03:16→20:00)
[2016-07-27 06:10] LABS: Basophils % (Auto) 0.1 % (0.0-1.8); Hematocrit 41.7 % (30.3-42.9); Hemoglobin 13.5 gm/dl (10.1-14.3); Mean Corpuscular HGB Conc 32 % (30-34); Mean Corpuscular Hemoglobin 33 pg (28-32); Mean Corpuscular Volume 100 fl (79-97); Platelet Count 174 K/mm3 (140-440); Red Blood Count 4.16 M/mm3 (3.65-5.03); Red Cell Distribution Width 13.2 % (13.2-15.2); White Blood Count 8.5 K/mm3 (4.5-11.0)
[2016-07-27 06:33] LABS: Alanine Aminotransferase 50 units/L (7-56); Albumin 3.3 g/dL (3.9-5); Albumin/Globulin Ratio 1.4 %; Alkaline Phosphatase 53 units/L (35-129); Bilirubin,Total < 0.2 mg/dL (0.1-1.2); Blood Urea Nitrogen 13 mg/dL (7-17); Calcium 8.9 mg/dL (8.4-10.2); Carbon Dioxide 39 mmol/L (22-30); Chloride 96.8 mmol/L (98-107); Glucose 131 mg/dL (65-100); Potassium 4.5 mmol/L (3.6-5.0); Sodium 143 mmol/L (137-145); Total Protein 5.6 g/dL (6.3-8.2)
[2016-07-27 06:56] LABS: Anion Gap 12 mmol/L
[2016-07-27] MEDS: BROVANA NEBU IH SCH ×2 (08:41→20:00)
[2016-07-27] MEDS: PULMICORT IH SCH ×2 (08:41→20:00)
[2016-07-27] MEDS: LOVENOX SUB-Q SCH (10:32)
[2016-07-27] MEDS: ROCEPHIN/NS 2 GM/100 ML 2 GM/100 ML BAG IV SCH (10:32)
[2016-07-27] MEDS: ZITHROMAX 500 MG in NACL 0.9% 250ML 250 ML IV SCH (10:33)
--- NOTE | 2016-07-27 15:58 | Progress Note ---
Assessment and Plan Imp: 1. Acute bronchitis 2. COPD/Asthma exac. 3. A/C respiratory failure, hypoxia/hypercapnea Rec: 1. Taper Solumedrol 2. Cont. ABX 3. Needs to get her Advair filled and start using after d/c 4. Needs to f/u with us [facility] after d/c; previously saw Dr. Quintana 5. Mobilize; d/c planning Plan of care reviewed w/ patient, she understands/agrees Subjective Date of service: 07/27/16 Principal diagnosis: COPD exacerbation, acute respiratory failure Interval history: No events. SOB and wheezing improving. No sputum. No new complaints. Active Medications Acetaminophen (Tylenol) 650 mg PO Q6H PRN PRN Reason: Pain, Mild (1-3) Last Admin: 07/26/16 21:44 Dose: 650 mg Albuterol (Proventil) 2.5 mg IH Q2HR PRN PRN Reason: Shortness Of Breath Albuterol (Proventil) 2.5 mg IH Q6HRT [facility] Last Admin: 07/27/16 14:20 Dose: 2.5 mg Arformoterol Tartrate (Brovana Nebu) 15 mcg IH Q12HRT [facility] Last Admin: 07/27/16 08:41 Dose: Not Given Budesonide (Pulmicort) 0.5 mg IH Q12HRT [facility] Last Admin: 07/27/16 08:41 Dose: 0.5 mg Enoxaparin Sodium (Lovenox) 40 mg SUB-Q QDAY [facility] Last Admin: 07/27/16 10:32 Dose: 40 mg Guaifenesin (Robitussin Dm) 10 ml PO Q6H PRN PRN Reason: Cough Last Admin: 07/26/16 21:44 Dose: 10 ml Azithromycin 500 mg/ Sodium (Chloride) 250 mls @ 250 mls/hr IV Q24HR [facility] Last Admin: 07/27/16 10:33 Dose: 250 mls/hr Ceftriaxone Sodium (Rocephin/Ns 2 Gm/100 Ml) 2 gm in 100 mls @ 200 mls/hr IV Q24HR [facility] Last Admin: 07/27/16 10:32 Dose: 200 mls/hr Lorazepam (Ativan) 1 mg PO TID PRN PRN Reason: Anxiety Last Admin: 07/26/16 21:42 Dose: 1 mg Methylprednisolone Sodium Succinate (Solu-Medrol) 40 mg IV Q8HR [facility] Montelukast Sodium (Singulair) 10 mg PO QHS [facility] Last Admin: 07/26/16 21:42 Dose: 10 mg Objective Vital Signs - 12hr 07/27/16 07/27/16 07/27/16 05:39 08:00 08:42 Temperature 97.9 F Pulse Rate 59 L Pulse Rate [ 60 Anterior Bilateral Throughout] Pulse Rate [ 60 Left Radial] Pulse Rate [ Right Brachial] Pulse Rate [ Right Radial] Respiratory 20 Rate Respiratory 16 Rate [Anterior Bilateral Throughout] Blood Pressure 150/67 [Left Arm] Blood Pressure [Right Arm] O2 Sat by Pulse 97 Oximetry 07/27/16 07/27/16 07/27/16 08:44 08:57 09:07 Temperature 97.8 F Pulse Rate Pulse Rate [ 65 Anterior Bilateral Throughout] Pulse Rate [ Left Radial] Pulse Rate [ Right Brachial] Pulse Rate [ 71 Right Radial] Respiratory 18 Rate Respiratory 18 Rate [Anterior Bilateral Throughout] Blood Pressure 130/60 [Left Arm] Blood Pressure [Right Arm] O2 Sat by Pulse 100 95 Oximetry 07/27/16 07/27/16 07/27/16 10:00 12:37 14:20 Temperature Pulse Rate Pulse Rate [ 72 Anterior Bilateral Throughout] Pulse Rate [ Left Radial] Pulse Rate [ 73 Right Brachial] Pulse Rate [ Right Radial] Respiratory 14 14 Rate Respiratory 16 Rate [Anterior Bilateral Throughout] Blood Pressure [Left Arm] Blood Pressure 142/72 [Right Arm] O2 Sat by Pulse 98 Oximetry 07/27/16 14:33 Temperature Pulse Rate Pulse Rate [ 68 Anterior Bilateral Throughout] Pulse Rate [ Left Radial] Pulse Rate [ Right Brachial] Pulse Rate [ Right Radial] Respiratory Rate Respiratory 16 Rate [Anterior Bilateral Throughout] Blood Pressure [Left Arm] Blood Pressure [Right Arm] O2 Sat by Pulse Oximetry Constitutional: no acute distress, alert Eyes: injected ENT: oropharynx moist Neck: supple Effort: normal Ascultation: Bilateral: wheezes (expiratory) Percussion: Bilateral: not dull Tactile fremitus: Bilateral: normal Cardiovascular: regular rate and rhythm (no mrg) Gastrointestinal: normoactive bowel sounds, soft, non-tender, non-distended Integumentary: normal Extremities: no cyanosis, no edema Neurologic: normal mental status, non-focal exam, pupils equal and round, CN II- XII normal Psychiatric: mood appropriate, affect normal CBC and BMP: 07/27/16 05:26 07/27/16 05:26 ABG, PT/INR, D-dimer: ABG POC ABG pH 7.238 (7.35-7.45) L 07/23/16 09:33 POC ABG pCO2 76.2 (35-45) H 07/23/16 09:33 POC ABG pO2 72 (80-105) L 07/23/16 09:33 POC ABG HCO3 32.5 07/23/16 09:33 POC ABG Total CO2 35 07/23/16 09:33 POC ABG O2 Sat 90 07/23/16 09:33 Abnormal lab findings: Abnormal Labs 07/23/16 07/23/16 07/23/16 04:38 05:01 07:41 MCV MCH Lymph % (Auto) Lymph # Seg Neutrophils % POC ABG pH 7.242 L 7.229 L 7.233 L POC ABG pCO2 91.1 H 88.0 H 80.8 H POC ABG pO2 64 L 58 L Chloride Carbon Dioxide Creatinine Glucose Total Protein Albumin 07/23/16 07/27/16 07/27/16 09:33 05:26 05:26 MCV 100 H MCH 33 H Lymph % (Auto) 9.6 L Lymph # 0.8 L Seg Neutrophils % 86.4 H POC ABG pH 7.238 L POC ABG pCO2 76.2 H POC ABG pO2 72 L Chloride 96.8 L Carbon Dioxide 39 H Creatinine 0.4 L Glucose 131 H Total Protein 5.6 L Albumin 3.3 L Chest x-ray: report reviewed, image reviewed
--- NOTE | 2016-07-27 20:26 | Progress Note ---
Assessment and Plan - Patient Problems (1) Acute respiratory failure Current Visit: No Status: Acute Qualifiers: Respiratory failure complication: hypoxia Qualified Code(s): J96.01 - Acute respiratory failure with hypoxia Plan to address problem: Resolved (2) COPD exacerbation Current Visit: Yes Status: Acute Plan to address problem: Improved.Probable discharge tomorrow (3) HTN (hypertension) Current Visit: Yes Status: Chronic Qualifiers: Hypertension type: H Plan to address problem: Well controlled (4) DVT prophylaxis Current Visit: No Status: Acute Plan to address problem: lovenox Subjective Date of service: 07/27/16 Principal diagnosis: COPD exacerbation, acute respiratory failure Interval history: Doing better Objective - Constitutional Vitals: Vital Signs - 12hr 07/27/16 07/27/16 07/27/16 08:42 08:44 08:57 Temperature Pulse Rate [ 60 65 Anterior Bilateral Throughout] Pulse Rate [ Left Radial] Pulse Rate [ Right Brachial] Pulse Rate [ Right Radial] Respiratory Rate Respiratory 16 18 Rate [Anterior Bilateral Throughout] Blood Pressure [Left Arm] Blood Pressure [Right Arm] O2 Sat by Pulse 100 Oximetry 07/27/16 07/27/16 07/27/16 09:07 10:00 12:37 Temperature 97.8 F Pulse Rate [ Anterior Bilateral Throughout] Pulse Rate [ Left Radial] Pulse Rate [ 73 Right Brachial] Pulse Rate [ 71 Right Radial] Respiratory 18 14 14 Rate Respiratory Rate [Anterior Bilateral Throughout] Blood Pressure 130/60 [Left Arm] Blood Pressure 142/72 [Right Arm] O2 Sat by Pulse 95 98 Oximetry 07/27/16 07/27/16 07/27/16 14:20 14:33 18:14 Temperature 97.3 F L Pulse Rate [ 72 68 Anterior Bilateral Throughout] Pulse Rate [ 69 Left Radial] Pulse Rate [ Right Brachial] Pulse Rate [ Right Radial] Respiratory 18 Rate Respiratory 16 16 Rate [Anterior Bilateral Throughout] Blood Pressure [Left Arm] Blood Pressure 190/88 [Right Arm] O2 Sat by Pulse 96 Oximetry General appearance: Present: no acute distress, well-nourished - EENT Eyes: PERRL, EOM intact ENT: hearing intact, clear oral mucosa Ears: bilateral: normal - Neck Neck: supple, normal ROM - Respiratory Respiratory effort: normal Respiratory: bilateral: CTA - Breasts Breasts: normal - Cardiovascular Rhythm: regular Heart Sounds: Present: S1 & S2. Absent: gallop, rub Extremities: pulses intact, No edema, normal color, Full ROM - Gastrointestinal General gastrointestinal: Present: soft, non-tender, non-distended, normal bowel sounds - Genitourinary Female genitourinary: normal - Integumentary Integumentary: clear, warm, dry - Musculoskeletal Musculoskeletal: 1, strength equal bilaterally - Neurologic Neurologic: moves all extremities - Psychiatric Psychiatric: memory intact, appropriate mood/affect, intact judgment & insight - Labs CBC & Chem 7: 07/28/16 06:43 07/28/16 06:43 Labs: Abnormal lab results 07/27/16 07/27/16 Range/Units 05:26 05:26 MCV 100 H (79-97) fl MCH 33 H (28-32) pg Lymph % (Auto) 9.6 L (13.4-35.0) % Lymph # 0.8 L (1.2-5.4) K/mm3 Seg Neutrophils % 86.4 H (40.0-70.0) % Chloride 96.8 L (98-107) mmol/L Carbon Dioxide 39 H (22-30) mmol/L Creatinine 0.4 L (0.7-1.2) mg/dL Glucose 131 H (65-100) mg/dL Total Protein 5.6 L (6.3-8.2) g/dL Albumin 3.3 L (3.9-5) g/dL
[2016-07-27] MEDS: TYLENOL PO PRN (22:11)
[2016-07-27] MEDS: SINGULAIR PO SCH (22:11)
[2016-07-27] MEDS: ATIVAN PO PRN (22:11)
[2016-07-27] MEDS: ROBITUSSIN DM PO PRN (22:11)
[2016-07-28] MEDS: PROVENTIL IH SCH ×4 (01:10→20:33)
[2016-07-28 07:18] LABS: Basophils % (Auto) 0.1 % (0.0-1.8); Hematocrit 41.7 % (30.3-42.9); Hemoglobin 13.6 gm/dl (10.1-14.3); Mean Corpuscular HGB Conc 33 % (30-34); Mean Corpuscular Hemoglobin 32 pg (28-32); Mean Corpuscular Volume 99 fl (79-97); Platelet Count 186 K/mm3 (140-440); Red Blood Count 4.21 M/mm3 (3.65-5.03); Red Cell Distribution Width 13.1 % (13.2-15.2); White Blood Count 9.7 K/mm3 (4.5-11.0)
[2016-07-28 07:40] LABS: Alanine Aminotransferase 44 units/L (7-56); Albumin 3.2 g/dL (3.9-5); Albumin/Globulin Ratio 1.4 %; Alkaline Phosphatase 50 units/L (35-129); Bilirubin,Total < 0.2 mg/dL (0.1-1.2); Blood Urea Nitrogen 16 mg/dL (7-17); Calcium 8.8 mg/dL (8.4-10.2); Chloride 93.4 mmol/L (98-107); Glucose 122 mg/dL (65-100); Potassium 4.5 mmol/L (3.6-5.0); Sodium 141 mmol/L (137-145); Total Protein 5.5 g/dL (6.3-8.2)
[2016-07-28 07:47] LABS: Anion Gap 10 mmol/L
[2016-07-28 08:37] LABS: Carbon Dioxide 42 mmol/L (22-30)
[2016-07-28] MEDS: PULMICORT IH SCH ×2 (08:40→20:33)
[2016-07-28] MEDS: BROVANA NEBU IH SCH ×2 (08:40→20:33)
[2016-07-28] MEDS: ROCEPHIN/NS 2 GM/100 ML 2 GM/100 ML BAG IV SCH (10:01)
[2016-07-28] MEDS: LOVENOX SUB-Q SCH (10:01)
[2016-07-28] MEDS: ZITHROMAX 500 MG in NACL 0.9% 250ML 250 ML IV SCH (10:02)
--- NOTE | 2016-07-28 13:23 | Progress Note ---
Assessment and Plan Imp: 1. Acute bronchitis 2. COPD/Asthma exac. 3. A/C respiratory failure, hypoxia/hypercapnea Rec: 1. Solumedrol -> prednisone taper at discharge 40mg x 3 days, 30mg x 3 days, 20mg x 3 days, 10mg x 3 days 2. Cont. ABX -> complete a few more days PO 3. Needs to get her Advair filled and start using after d/c 4. Needs to f/u with us [facility] after d/c; previously saw Dr. Quintana 5. Mobilize 6. Okay to d/c home pulmonary-means Plan of care reviewed w/ patient, she understands/agrees Subjective Date of service: 07/28/16 Principal diagnosis: COPD exacerbation, acute respiratory failure Interval history: No events. SOB and wheezing improving. No sputum. No new complaints. Feels well enough to go home. Has home O2. Has been ambulating in room. Active Medications Acetaminophen (Tylenol) 650 mg PO Q6H PRN PRN Reason: Pain, Mild (1-3) Last Admin: 07/27/16 22:11 Dose: 650 mg Albuterol (Proventil) 2.5 mg IH Q2HR PRN PRN Reason: Shortness Of Breath Albuterol (Proventil) 2.5 mg IH Q6HRT [facility] Last Admin: 07/28/16 08:40 Dose: 2.5 mg Arformoterol Tartrate (Brovana Nebu) 15 mcg IH Q12HRT [facility] Last Admin: 07/28/16 08:40 Dose: Not Given Budesonide (Pulmicort) 0.5 mg IH Q12HRT [facility] Last Admin: 07/28/16 08:40 Dose: 0.5 mg Enoxaparin Sodium (Lovenox) 40 mg SUB-Q QDAY [facility] Last Admin: 07/28/16 10:01 Dose: 40 mg Guaifenesin (Robitussin Dm) 10 ml PO Q6H PRN PRN Reason: Cough Last Admin: 07/27/16 22:11 Dose: 10 ml Azithromycin 500 mg/ Sodium (Chloride) 250 mls @ 250 mls/hr IV Q24HR [facility] Last Admin: 07/28/16 10:02 Dose: 250 mls/hr Ceftriaxone Sodium (Rocephin/Ns 2 Gm/100 Ml) 2 gm in 100 mls @ 200 mls/hr IV Q24HR [facility] Last Admin: 07/28/16 10:01 Dose: 200 mls/hr Lorazepam (Ativan) 1 mg PO TID PRN PRN Reason: Anxiety Last Admin: 07/27/16 22:11 Dose: 1 mg Methylprednisolone Sodium Succinate (Solu-Medrol) 40 mg IV Q12HR [facility] Last Admin: 07/28/16 10:02 Dose: 40 mg Montelukast Sodium (Singulair) 10 mg PO QHS [facility] Last Admin: 07/27/16 22:11 Dose: 10 mg Objective Vital Signs - 12hr 07/28/16 07/28/16 07/28/16 04:00 08:24 08:41 Temperature 98.3 F Pulse Rate Pulse Rate [ 60 Anterior Bilateral Throughout] Pulse Rate [ Left Radial] Pulse Rate [ 69 Right Radial] Respiratory 18 Rate Respiratory 18 Rate [Anterior Bilateral Throughout] Blood Pressure 150/72 [Right Arm] O2 Sat by Pulse 97 98 Oximetry 07/28/16 07/28/16 07/28/16 08:43 08:57 09:55 Temperature Pulse Rate 56 L Pulse Rate [ 78 Anterior Bilateral Throughout] Pulse Rate [ Left Radial] Pulse Rate [ Right Radial] Respiratory 16 Rate Respiratory 18 Rate [Anterior Bilateral Throughout] Blood Pressure [Right Arm] O2 Sat by Pulse 98 Oximetry 07/28/16 10:01 Temperature 98.3 F Pulse Rate Pulse Rate [ Anterior Bilateral Throughout] Pulse Rate [ 64 Left Radial] Pulse Rate [ Right Radial] Respiratory 18 Rate Respiratory Rate [Anterior Bilateral Throughout] Blood Pressure 134/60 [Right Arm] O2 Sat by Pulse 95 Oximetry Constitutional: no acute distress, alert Eyes: injected ENT: oropharynx moist Neck: supple Effort: normal Ascultation: Bilateral: wheezes (expiratory, better) Percussion: Bilateral: not dull Tactile fremitus: Bilateral: normal Cardiovascular: regular rate and rhythm (no mrg) Gastrointestinal: normoactive bowel sounds, soft, non-tender, non-distended Integumentary: normal Extremities: no cyanosis, no edema Neurologic: normal mental status, non-focal exam, pupils equal and round, CN II- XII normal Psychiatric: mood appropriate, affect normal CBC and BMP: 07/28/16 06:43 07/28/16 06:43 ABG, PT/INR, D-dimer: ABG POC ABG pH 7.238 (7.35-7.45) L 07/23/16 09:33 POC ABG pCO2 76.2 (35-45) H 07/23/16 09:33 POC ABG pO2 72 (80-105) L 07/23/16 09:33 POC ABG HCO3 32.5 07/23/16 09:33 POC ABG Total CO2 35 07/23/16 09:33 POC ABG O2 Sat 90 07/23/16 09:33 Abnormal lab findings: Abnormal Labs 07/23/16 07/23/16 07/23/16 04:38 05:01 07:41 MCV MCH RDW Lymph % (Auto) Lymph # Seg Neutrophils % Seg Neutrophils # POC ABG pH 7.242 L 7.229 L 7.233 L POC ABG pCO2 91.1 H 88.0 H 80.8 H POC ABG pO2 64 L 58 L Chloride Carbon Dioxide Creatinine Glucose Total Protein Albumin 07/23/16 07/27/16 07/27/16 09:33 05:26 05:26 MCV 100 H MCH 33 H RDW Lymph % (Auto) 9.6 L Lymph # 0.8 L Seg Neutrophils % 86.4 H Seg Neutrophils # POC ABG pH 7.238 L POC ABG pCO2 76.2 H POC ABG pO2 72 L Chloride 96.8 L Carbon Dioxide 39 H Creatinine 0.4 L Glucose 131 H Total Protein 5.6 L Albumin 3.3 L 07/28/16 07/28/16 06:43 06:43 MCV 99 H MCH RDW 13.1 L Lymph % (Auto) 8.2 L Lymph # 0.8 L Seg Neutrophils % 87.0 H Seg Neutrophils # 8.5 H POC ABG pH POC ABG pCO2 POC ABG pO2 Chloride 93.4 L Carbon Dioxide 42 H* Creatinine 0.4 L Glucose 122 H Total Protein 5.5 L Albumin 3.2 L Chest x-ray: report reviewed, image reviewed
--- NOTE | 2016-07-28 14:04 | Progress Note ---
Assessment and Plan Assessment and plan: 1. Acute bronchitis. Continue IV antibiotics. 2. COPD/Asthma exac. Solu-Medrol has been decreased to 40 mg twice a day. Patient will most likely discharge in a.m. With prednisone taper. 3. A/C respiratory failure, hypoxia/hypercapnea 4. Deconditioning. PT evaluation. History Interval history: 61-year-old female presented with acute hypercapnic respiratory failure secondary to acute bronchitis and severe persistent acute asthma exacerbation. Patient feels better but still having some dyspnea with exertion. Hospitalist Physical - Constitutional Vitals: Temp Pulse Resp BP Pulse Ox 98.3 F 74 18 134/60 95 07/28/16 10:01 07/28/16 13:53 07/28/16 13:53 07/28/16 10:01 07/28/16 10:01 General appearance: Present: no acute distress, well-nourished - EENT Eyes: Present: PERRL, EOM intact ENT: hearing intact, clear oral mucosa, dentition normal - Neck Neck: Present: supple, normal ROM - Respiratory Respiratory effort: normal Respiratory: bilateral: diminished, rhonchi, wheezing - Cardiovascular Rhythm: regular Heart Sounds: Present: S1 & S2. Absent: gallop, rub - Extremities Extremities: no ischemia, No edema, Full ROM - Abdominal General gastrointestinal: soft, non-tender, non-distended, normal bowel sounds - Integumentary Integumentary: Present: clear, warm, dry - Neurologic Neurologic: CNII-XII intact, moves all extremities Results - Labs CBC & Chem 7: 07/28/16 06:43 07/28/16 06:43 Labs: Laboratory Last Values WBC 9.7 K/mm3 (4.5-11.0) 07/28/16 06:43 RBC 4.21 M/mm3 (3.65-5.03) 07/28/16 06:43 Hgb 13.6 gm/dl (10.1-14.3) 07/28/16 06:43 Hct 41.7 % (30.3-42.9) 07/28/16 06:43 MCV 99 fl (79-97) H 07/28/16 06:43 MCH 32 pg (28-32) 07/28/16 06:43 MCHC 33 % (30-34) 07/28/16 06:43 RDW 13.1 % (13.2-15.2) L 07/28/16 06:43 Plt Count 186 K/mm3 (140-440) 07/28/16 06:43 Lymph % (Auto) 8.2 % (13.4-35.0) L 07/28/16 06:43 [place] % (Auto) 4.7 % (0.0-7.3) 07/28/16 06:43 Eos % (Auto) 0.0 % (0.0-4.3) 07/28/16 06:43 Baso % (Auto) 0.1 % (0.0-1.8) 07/28/16 06:43 Lymph # 0.8 K/mm3 (1.2-5.4) L 07/28/16 06:43 [place] # 0.5 K/mm3 (0.0-0.8) 07/28/16 06:43 Eos # 0.0 K/mm3 (0.0-0.4) 07/28/16 06:43 Baso # 0.0 K/mm3 (0.0-0.1) 07/28/16 06:43 Seg Neutrophils % 87.0 % (40.0-70.0) H 07/28/16 06:43 Seg Neutrophils # 8.5 K/mm3 (1.8-7.7) H 07/28/16 06:43 POC ABG pH 7.238 (7.35-7.45) L 07/23/16 09:33 POC ABG pCO2 76.2 (35-45) H 07/23/16 09:33 POC ABG pO2 72 (80-105) L 07/23/16 09:33 POC ABG HCO3 32.5 07/23/16 09:33 POC ABG Total CO2 35 07/23/16 09:33 POC ABG O2 Sat 90 07/23/16 09:33 POC ABG Base Excess 5 07/23/16 09:33 FiO2 40 % 07/23/16 09:33 Sodium 141 mmol/L (137-145) 07/28/16 06:43 Potassium 4.5 mmol/L (3.6-5.0) 07/28/16 06:43 Chloride 93.4 mmol/L (98-107) L 07/28/16 06:43 Carbon Dioxide 42 mmol/L (22-30) H* 07/28/16 06:43 Anion Gap 10 mmol/L 07/28/16 06:43 BUN 16 mg/dL (7-17) 07/28/16 06:43 Creatinine 0.4 mg/dL (0.7-1.2) L 07/28/16 06:43 Estimated GFR > 60 ml/min 07/28/16 06:43 BUN/Creatinine Ratio 40.00 % 07/28/16 06:43 Glucose 122 mg/dL (65-100) H 07/28/16 06:43 Calcium 8.8 mg/dL (8.4-10.2) 07/28/16 06:43 Total Bilirubin < 0.2 mg/dL (0.1-1.2) 07/28/16 06:43 AST 24 units/L (5-40) 07/28/16 06:43 ALT 44 units/L (7-56) 07/28/16 06:43 Alkaline Phosphatase 50 units/L (35-129) 07/28/16 06:43 Troponin T < 0.010 ng/mL (0.00-0.029) 07/23/16 00:32 Total Protein 5.5 g/dL (6.3-8.2) L 07/28/16 06:43 Albumin 3.2 g/dL (3.9-5) L 07/28/16 06:43 Albumin/Globulin Ratio 1.4 % 07/28/16 06:43
[2016-07-28] MEDS: TYLENOL PO PRN (21:57)
[2016-07-28] MEDS: SINGULAIR PO SCH (21:58)
[2016-07-28] MEDS: ATIVAN PO PRN (22:03)
[2016-07-29] MEDS: PROVENTIL IH SCH ×3 (02:22→13:48)
[2016-07-29 06:09] LABS: Basophils % (Auto) 0.2 % (0.0-1.8); Hemoglobin 14.3 gm/dl (10.1-14.3); Mean Corpuscular HGB Conc 32 % (30-34); Mean Corpuscular Hemoglobin 32 pg (28-32); Mean Corpuscular Volume 99 fl (79-97); Platelet Count 227 K/mm3 (140-440); Red Blood Count 4.43 M/mm3 (3.65-5.03); Red Cell Distribution Width 12.8 % (13.2-15.2); White Blood Count 10.2 K/mm3 (4.5-11.0)
[2016-07-29 06:40] LABS: Alanine Aminotransferase 46 units/L (7-56); Albumin 3.5 g/dL (3.9-5); Albumin/Globulin Ratio 1.5 %; Alkaline Phosphatase 54 units/L (35-129); Bilirubin,Total 0.2 mg/dL (0.1-1.2); Blood Urea Nitrogen 17 mg/dL (7-17); Calcium 8.8 mg/dL (8.4-10.2); Glucose 118 mg/dL (65-100); Total Protein 5.8 g/dL (6.3-8.2)
[2016-07-29 06:41] LABS: Chloride 92.6 mmol/L (98-107); Potassium 4.2 mmol/L (3.6-5.0); Sodium 139 mmol/L (137-145)
[2016-07-29 06:44] LABS: Anion Gap 8 mmol/L
[2016-07-29 06:45] LABS: Carbon Dioxide 43 mmol/L (22-30)
[2016-07-29] MEDS: TYLENOL PO PRN (07:30)
[2016-07-29 07:53] VITALS: BP 164/79
[2016-07-29] MEDS: BROVANA NEBU IH SCH (08:06)
[2016-07-29] MEDS: PULMICORT IH SCH (08:06)
--- NOTE | 2016-07-29 08:35 | Discharge Summary ---
Providers - Providers Date of Admission: 07/23/16 03:32 Date of discharge: 07/29/16 Attending physician: KRISTOFER ASHRAF 07/23/16 07:25 Consult to Physician [CONS] Routine Consulting Provider: CHRISTY MAX Reason For Exam: Resp failure Place consult to:: renee intens Notified:: y If yes, spoke with:: lulu ley Time called:: 08:00 07/24/16 16:13 Consult to Dietitian/Nutrition [CONS] Routine Physician Instructions: Reason For Exam: Reason for Consult: Malnutrition 07/28/16 14:04 Physical Therapy Evaluation and Treat [CONS] Routine Comment: Reason For Exam: deconditioning Primary care physician: HOWARD SEWELL Hospitalization Reason for admission: asthma exacerbation Condition: Stable Hospital course: Patient is a 61 yo female with a past medical history of COPD oxygen dependent, asthma, and history of intubations presented to the hospital with complaints of fever, cough, shortness of breath 1 day, with associated chest tightness. She was noted to have severe wheezing in the ER was started on BiPAP and she was awake alert and oriented and could protect her airways. Cough productive of brown sputum. Patient was admitted with a diagnosis of acute on chronic hypercapnic and hypoxic respiratory failure and acute bronchitis. Patient showed some improvement and was weaned off BiPAP and required oxygen. Patient received IV antibiotics and IV steroids. Patient also received Pulmicort, Brovana and Singulair. Patient has significant improvement throughout hospitalization and was weaned back to her baseline O2 2 L at home. Pulmonary also saw the patient in consultation and was in agreement with discharge. Patient was felt to have received maximal hospital benefit and will be discharged home. Dedicated discharge time 35 minutes. Disposition: DISCHARGED TO HOME OR SELFCARE - Discharge Diagnoses (1) COPD exacerbation Status: Acute (2) HTN (hypertension) Status: Chronic Qualifiers: Hypertension type: H (3) Acute respiratory failure Status: Acute Qualifiers: Respiratory failure complication: hypoxia Qualified Code(s): J96.01 - Acute respiratory failure with hypoxia (4) Asthmatic bronchitis Status: Acute Qualifiers: Asthma severity: A Asthma complication type: A Core Measure Documentation - Palliative Care Palliative Care/ Comfort Measures: Not Applicable - Core Measures Any of the following diagnoses?: none Exam - Constitutional Vitals: Temp Pulse Resp BP Pulse Ox 97.8 F 76 18 164/79 97 07/29/16 07:52 02/08/17 08:06 07/29/16 08:06 07/29/16 07:52 07/29/16 07:52 General appearance: Present: no acute distress, well-nourished - EENT Eyes: Present: PERRL ENT: hearing intact, clear oral mucosa - Neck Neck: Present: supple, normal ROM - Respiratory Respiratory effort: normal Respiratory: bilateral: CTA - Cardiovascular Heart Sounds: Present: S1 & S2. Absent: rub, click - Extremities Extremities: pulses symmetrical, No edema Peripheral Pulses: within normal limits - Abdominal General gastrointestinal: Present: soft, non-tender, non-distended, normal bowel sounds Female genitourinary: Present: normal - Integumentary Integumentary: Present: clear, warm, dry - Musculoskeletal Musculoskeletal: gait normal, strength equal bilaterally - Psychiatric Psychiatric: appropriate mood/affect, intact judgment & insight - Neurologic Neurologic: CNII-XII intact, moves all extremities Plan Activity: no restrictions Weight Bearing Status: Full Weight Bearing Diet: regular Follow up with: HOWARD SEWELL MD [Primary Care Provider] - 3-5 Days Prescriptions: ALBUTEROL NEB's [Proventil 0.083% NEBS] 2.5 mg IH Q2HR PRN #30 nebu PRN Reason: Shortness Of Breath Arformoterol Nebu [Brovana Nebu] 15 mcg IH Q12HRT #60 ml Budesonide [Pulmicort Respules] 0.5 mg IH Q12HRT #60 nebu Montelukast [Singulair] 10 mg PO QHS #30 tablet
[2016-07-29] MEDS: LOVENOX SUB-Q SCH (10:00)
[2016-07-29] MEDS: ROCEPHIN/NS 2 GM/100 ML 2 GM/100 ML BAG IV SCH (10:06)
[2016-07-29] MEDS: ZITHROMAX 500 MG in NACL 0.9% 250ML 250 ML IV SCH (11:16)
--- NOTE | 2016-07-29 13:18 | Progress Note ---
Assessment and Plan Imp: 1. Acute bronchitis 2. COPD/Asthma exac. 3. A/C respiratory failure, hypoxia/hypercapnea Rec: 1. Solumedrol -> prednisone taper at discharge 40mg x 3 days, 30mg x 3 days, 20mg x 3 days, 10mg x 3 days 2. Cont. ABX -> complete a few more days PO 3. Needs to get her Advair filled and start using after d/c 4. Needs to f/u with us [facility] after d/c; previously saw Dr. Quintana 5. Mobilize 6. Okay to d/c home pulmonary-means Plan of care reviewed w/ patient, she understands/agrees Subjective Date of service: 07/29/16 Principal diagnosis: COPD exacerbation, acute respiratory failure Interval history: No events. SOB and wheezing improving. No sputum. No new complaints. Feels well enough to go home. Has home O2. Has been ambulating in room. Active Medications Acetaminophen (Tylenol) 650 mg PO Q6H PRN PRN Reason: Pain, Mild (1-3) Last Admin: 07/29/16 07:30 Dose: 650 mg Albuterol (Proventil) 2.5 mg IH Q2HR PRN PRN Reason: Shortness Of Breath Albuterol (Proventil) 2.5 mg IH Q6HRT [facility] Last Admin: 07/29/16 08:06 Dose: 2.5 mg Arformoterol Tartrate (Brovana Nebu) 15 mcg IH Q12HRT [facility] Last Admin: 07/29/16 08:06 Dose: Not Given Budesonide (Pulmicort) 0.5 mg IH Q12HRT [facility] Last Admin: 07/29/16 08:06 Dose: 0.5 mg Enoxaparin Sodium (Lovenox) 40 mg SUB-Q QDAY [facility] Last Admin: 07/29/16 10:00 Dose: Not Given Guaifenesin (Robitussin Dm) 10 ml PO Q6H PRN PRN Reason: Cough Last Admin: 07/27/16 22:11 Dose: 10 ml Azithromycin 500 mg/ Sodium (Chloride) 250 mls @ 250 mls/hr IV Q24HR [facility] Last Admin: 07/29/16 11:16 Dose: 250 mls/hr Ceftriaxone Sodium (Rocephin/Ns 2 Gm/100 Ml) 2 gm in 100 mls @ 200 mls/hr IV Q24HR [facility] Last Admin: 07/29/16 10:06 Dose: 200 mls/hr Lorazepam (Ativan) 1 mg PO TID PRN PRN Reason: Anxiety Last Admin: 07/28/16 22:03 Dose: 1 mg Methylprednisolone Sodium Succinate (Solu-Medrol) 40 mg IV Q12HR [facility] Last Admin: 07/29/16 10:06 Dose: 40 mg Montelukast Sodium (Singulair) 10 mg PO QHS [facility] Last Admin: 07/28/16 21:58 Dose: 10 mg Objective Vital Signs - 12hr 07/29/16 07/29/16 07/29/16 04:49 07:52 08:06 Temperature 98.6 F 97.8 F Pulse Rate Pulse Rate [ 76 Anterior Bilateral Throughout] Pulse Rate [ 71 Left Radial] Pulse Rate [ 84 Right Brachial] Respiratory 18 18 Rate Respiratory 18 Rate [Anterior Bilateral Throughout] Blood Pressure 164/79 [Left Arm] Blood Pressure 141/68 [Right Arm] O2 Sat by Pulse 94 97 Oximetry 07/29/16 07/29/16 08:20 10:00 Temperature Pulse Rate 64 Pulse Rate [ 72 Anterior Bilateral Throughout] Pulse Rate [ Left Radial] Pulse Rate [ Right Brachial] Respiratory 18 Rate Respiratory 18 Rate [Anterior Bilateral Throughout] Blood Pressure [Left Arm] Blood Pressure [Right Arm] O2 Sat by Pulse 97 Oximetry Constitutional: no acute distress, alert Eyes: injected ENT: oropharynx moist Neck: supple Effort: normal Ascultation: Bilateral: clear Cardiovascular: regular rate and rhythm (no mrg) Gastrointestinal: normoactive bowel sounds, soft, non-tender, non-distended Integumentary: normal Extremities: no cyanosis, no edema Neurologic: normal mental status, non-focal exam, pupils equal and round, CN II- XII normal Psychiatric: mood appropriate, affect normal CBC and BMP: 07/29/16 05:44 07/29/16 05:44 ABG, PT/INR, D-dimer: ABG POC ABG pH 7.238 (7.35-7.45) L 07/23/16 09:33 POC ABG pCO2 76.2 (35-45) H 07/23/16 09:33 POC ABG pO2 72 (80-105) L 07/23/16 09:33 POC ABG HCO3 32.5 07/23/16 09:33 POC ABG Total CO2 35 07/23/16 09:33 POC ABG O2 Sat 90 07/23/16 09:33 Abnormal lab findings: Abnormal Labs 07/23/16 07/23/16 07/23/16 04:38 05:01 07:41 Hct MCV MCH RDW Lymph % (Auto) Lymph # Seg Neutrophils % Seg Neutrophils # POC ABG pH 7.242 L 7.229 L 7.233 L POC ABG pCO2 91.1 H 88.0 H 80.8 H POC ABG pO2 64 L 58 L Chloride Carbon Dioxide Creatinine Glucose Total Protein Albumin 07/23/16 07/27/16 07/27/16 09:33 05:26 05:26 Hct MCV 100 H MCH 33 H RDW Lymph % (Auto) 9.6 L Lymph # 0.8 L Seg Neutrophils % 86.4 H Seg Neutrophils # POC ABG pH 7.238 L POC ABG pCO2 76.2 H POC ABG pO2 72 L Chloride 96.8 L Carbon Dioxide 39 H Creatinine 0.4 L Glucose 131 H Total Protein 5.6 L Albumin 3.3 L 07/28/16 07/28/16 07/29/16 06:43 06:43 05:44 Hct 44.0 H MCV 99 H 99 H MCH RDW 13.1 L 12.8 L Lymph % (Auto) 8.2 L 8.8 L Lymph # 0.8 L 0.9 L Seg Neutrophils % 87.0 H 87.4 H Seg Neutrophils # 8.5 H 8.9 H POC ABG pH POC ABG pCO2 POC ABG pO2 Chloride 93.4 L Carbon Dioxide 42 H* Creatinine 0.4 L Glucose 122 H Total Protein 5.5 L Albumin 3.2 L 07/29/16 05:44 Hct MCV MCH RDW Lymph % (Auto) Lymph # Seg Neutrophils % Seg Neutrophils # POC ABG pH POC ABG pCO2 POC ABG pO2 Chloride 92.6 L Carbon Dioxide 43 H* Creatinine 0.5 L Glucose 118 H Total Protein 5.8 L Albumin 3.5 L Chest x-ray: report reviewed, image reviewed
== END 2016-07-29 13:58 | disposition home or self-care (01) | DRG 189 ==
LOC: ED 00:07 → 3A 03:32 → CC1 08:03 → 4A 07-24 17:10
PROVIDERS: ADMIT Internal Medicine; ATTEND Hospitalist
PROC: 5A09457 Assistance with Respiratory Ventilation, 24-96 Consecutive Hours, Continuous Positive Airway Pressure (ICD-10-PCS; principal; 2016-07-23)
PROC: 4A033R1 Measurement of Arterial Saturation, Peripheral, Percutaneous Approach (ICD-10-PCS; 2016-07-23)
DX: J96.22 Acute and chronic respiratory failure with hypercapnia (principal); J44.1 Chronic obstructive pulmonary disease with (acute) exacerbation; J45.51 Severe persistent asthma with (acute) exacerbation; E44.0 Moderate protein-calorie malnutrition; J96.21 Acute and chronic respiratory failure with hypoxia; J20.9 Acute bronchitis, unspecified; Z68.20 Body mass index [BMI] 20.0-20.9, adult; Z99.81 Dependence on supplemental oxygen; Z79.899 Other long term (current) drug therapy; Z88.8 Allergy status to other drugs, medicaments and biological substances; Z91.010 Allergy to peanuts; Z87.891 Personal history of nicotine dependence
CPT/HCPCS: 36415; 36600; 71010; 80048; 80053; 82803; 84484; 85025; 87040; 93005; 93010; 94640; 94660; 94760; 96365; 96367; 96375; J0456; J0696; J1650; J2920; J2930; J7042; J7050

== ENCOUNTER 2017-07-19 04:17 | Emergency (ER) | payer MEDICARE ==
[2017-07-19] MEDS ORDERED: PROVENTIL IH ONE ×2 (05:49→09:26)
[2017-07-19 06:12] LABS: Hematocrit 41.6 % (30.3-42.9); Hemoglobin 13.2 gm/dl (10.1-14.3); Mean Corpuscular HGB Conc 32 % (30-34); Mean Corpuscular Hemoglobin 34 pg (28-32); Mean Corpuscular Volume 108 fl (79-97); Platelet Count 183 K/mm3 (140-440); Red Blood Count 3.85 M/mm3 (3.65-5.03); Red Cell Distribution Width 13.6 % (13.2-15.2)
[2017-07-19 06:35] LABS: BUN/Creatinine Ratio 55; Blood Urea Nitrogen 11 mg/dL (7-17); Calcium 9.3 mg/dL (8.4-10.2); Hemolysis Index 0
--- NOTE | 2017-07-19 06:41 | XRay Report ---
FINAL REPORT EXAM: XR CHEST ROUTINE 2V HISTORY: Shortness of breath TECHNIQUE: AP portable view(s) of the chest obtained. PRIORS: 03/02/2017 CT and chest radiograph FINDINGS: No mediastinal shift. Cardiac silhouette is not enlarged. Mild hyperaeration of the lungs. No pneumothorax, effusion, or focal pulmonary opacity identified. No acute skeletal findings. IMPRESSION: Sequela of COPD without acute pulmonary finding identified.
--- NOTE | 2017-07-19 07:45 | Emergency Department Report ---
ED Shortness of Breath HPI - General Chief Complaint: Dyspnea/Respdistress Stated Complaint: ANTHONY Time Seen by Provider: 07/19/17 07:27 Source: patient, EMS Mode of arrival: Stretcher Limitations: No Limitations - History of Present Illness MD Complaint: shortness of breath -: Gradual, days(s) Severity: Unable to Determine Consistency: constant Improves With: nothing Known History Of: COPD Associated Symptoms: chest pain, other (wheezing) Treatments Prior to Arrival: bronchodilator, other (Solumedrol) - Related Data Previous Rx's Medication Instructions Recorded Last Taken Type ALBUTEROL Inhaler [ProAir HFA 2 puff IH QID PRN #1 inha 03/04/17 Unknown Rx Inhaler] Arformoterol Nebu [Brovana Nebu] 15 mcg IH Q12HRT #60 ml 03/04/17 Unknown Rx Azithromycin [Zithromax TAB] 500 mg PO QDAY #3 tablet 03/04/17 Unknown Rx Mometasone Furoate [Asmanex Hfa] 13 gm IH PRN #1 hfa.aer.ad 03/04/17 Unknown Rx Montelukast [Singulair] 10 mg PO QHS #30 tablet 03/04/17 Unknown Rx Ciprofloxacin HCl [Cipro] 500 mg PO Q12HR 10 Days tablet 07/19/17 Unknown Rx predniSONE [Deltasone] 40 mg PO QDAY #6 tab 07/19/17 Unknown Rx Allergies Allergy/AdvReac Type Severity Reaction Status Date / Time peanut Allergy Angioedema Verified 07/23/16 00:17 ipratropium bromide AdvReac Shortness Verified 09/11/13 07:39 [From Atrovent] of Breath ED Review of Systems ROS: Stated complaint: ANTHONY Other details as noted in HPI Comment: Unobtainable due to pts medical conditions (she is sleepy, arousable but does not answer questions) ED Past Medical Hx - Past Medical History Previous Medical History?: Yes Hx Congestive Heart Failure: No Hx Diabetes: No Hx Asthma: Yes Hx COPD: Yes Hx Dementia: No Hx HIV: No Additional medical history: hx intubation - Surgical History Past Surgical History?: No - Social History Smoking Status: Never Smoker Substance Use Type: Alcohol - Medications Home Medications: Home Medications Medication Instructions Recorded Confirmed Last Taken Type ALBUTEROL Inhaler [ProAir HFA 2 puff IH QID PRN #1 inha 03/04/17 Unknown Rx Inhaler] Arformoterol Nebu [Brovana Nebu] 15 mcg IH Q12HRT #60 ml 03/04/17 Unknown Rx Azithromycin [Zithromax TAB] 500 mg PO QDAY #3 tablet 03/04/17 Unknown Rx Mometasone Furoate [Asmanex Hfa] 13 gm IH PRN #1 hfa.aer.ad 03/04/17 Unknown Rx Montelukast [Singulair] 10 mg PO QHS #30 tablet 03/04/17 Unknown Rx Ciprofloxacin HCl [Cipro] 500 mg PO Q12HR 10 Days tablet 07/19/17 Unknown Rx predniSONE [Deltasone] 40 mg PO QDAY #6 tab 07/19/17 Unknown Rx ED Physical Exam - General Limitations: No Limitations General appearance: alert, in no apparent distress - Head Head exam: Present: atraumatic, normocephalic - Eye Eye exam: Present: normal appearance - ENT ENT exam: Present: mucous membranes moist - Neck Neck exam: Present: normal inspection - Respiratory Respiratory exam: Present: wheezes, prolonged expiratory. Absent: respiratory distress - Cardiovascular Cardiovascular Exam: Present: regular rate, normal rhythm. Absent: systolic murmur, diastolic murmur, rubs, gallop - GI/Abdominal GI/Abdominal exam: Present: soft, normal bowel sounds - Extremities Exam Extremities exam: Present: normal inspection - Back Exam Back exam: Present: normal inspection - Neurological Exam Neurological exam: Present: alert, oriented X3 - Psychiatric Psychiatric exam: Present: normal affect, normal mood - Skin Skin exam: Present: warm, dry, intact, normal color. Absent: rash ED Course Vital Signs 07/19/17 07/19/17 07/19/17 05:25 05:27 06:04 Temperature 99.0 F Pulse Rate 84 Pulse Rate [ 89 Bilateral Throughout] Respiratory 22 22 Rate Respiratory 20 Rate [Bilateral Throughout] Blood Pressure 161/68 O2 Sat by Pulse 99 97 Oximetry - Reevaluation(s) Reevaluation #1: 07/19/17 10:31 Much improved breathing and very alert after fixing her O2 supply and another breathing treatment. ED Medical Decision Making - Lab Data Result diagrams: 07/19/17 05:50 07/19/17 05:50 Critical care attestation.: If time is entered above; I have spent that time in minutes in the direct care of this critically ill patient, excluding procedure time. ED Disposition Clinical Impression: COPD exacerbation Disposition: DC-01 TO HOME OR SELFCARE Is pt being admited?: No Does the pt Need Aspirin: No Condition: Stable Instructions: Chronic Obstructive Pulmonary Disease (ED) Prescriptions: Ciprofloxacin HCl [Cipro] 500 mg PO Q12HR 10 Days tablet predniSONE [Deltasone] 40 mg PO QDAY #6 tab Referrals: KATH CRUZ MD [Primary Care Provider] - 3-5 Days Time of Disposition: 10:33
[2017-07-19 10:08] LABS: Anisocytosis Few; Band Neutrophils # (Manual) 0.3 K/mm3; Basophils % (Manual) 0 % (0.0-1.8); Eosinophils % (Manual) 0 % (0.0-4.3); Stomatocytes 1+; Total Cells Counted 100
[2017-07-19] MEDS ORDERED: NACL 0.9% 500 ML 500 ML IV ONE (12:00)
[2017-07-19] MEDS ORDERED: NACL 0.9% 500 ML 500 ML ONE (12:05)
[2017-07-19 13:43] VITALS: BP 118/64
== END 2017-07-19 13:20 | disposition home or self-care (01) ==
LOC: ED 04:17
DX: J44.1 Chronic obstructive pulmonary disease with (acute) exacerbation (principal)
CPT/HCPCS: 36415; 71046; 80048; 84484; 85007; 85025; 94640; 99285; J7040

== ENCOUNTER 2017-09-12 21:36 | Inpatient (IN) | payer MEDICARE ==
[2017-09-12] MEDS ORDERED: PROVENTIL IH ONE (22:28)
[2017-09-12 22:45] LABS: Basophils % (Auto) 0.1 % (0.0-1.8); Eosinophils % (Auto) 0.2 % (0.0-4.3); Hematocrit 41.1 % (30.3-42.9); Hemoglobin 12.8 gm/dl (10.1-14.3); Lymphocytes # (Auto) 1.2 K/mm3 (1.2-5.4); Lymphocytes % (Auto) 13.4 % (13.4-35.0); Mean Corpuscular HGB Conc 31 % (30-34); Mean Corpuscular Hemoglobin 33 pg (28-32); Mean Corpuscular Volume 107 fl (79-97); Monocytes # (Auto) 0.5 K/mm3 (0.0-0.8); Monocytes % (Auto) 5.7 % (0.0-7.3); Platelet Count 269 K/mm3 (140-440); Red Blood Count 3.84 M/mm3 (3.65-5.03); Red Cell Distribution Width 13.5 % (13.2-15.2)
--- NOTE | 2017-09-12 22:47 | Emergency Department Report ---
ED Shortness of Breath HPI - General Chief Complaint: Dyspnea/Respdistress Stated Complaint: ANTHONY Time Seen by Provider: 09/12/17 21:57 Source: patient, EMS Mode of arrival: Stretcher Limitations: No Limitations - History of Present Illness Initial Comments: 62-year-old female past medical history of COPD (12 L of home oxygen), asthma with history of intubation 1 presents to the hospital with complaints of shortness of breath " a couple of days". EMS reports that on 3 L of home oxygen patient's sat was 81% at the scene she had a very long o2 tubing. Patient complains of cough with thick white sputum. No complaints of fever. Patient has anterior chest wall pain at the sternum worse with coughing and palpation. Pain is moderate in intensity. She is unable to characterize pain. In route received Solu-Medrol 125, albuterol 5 mg with improvement in symptoms but persistent wheezing. 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 - Related Data Previous Rx's Medication Instructions Recorded Last Taken Type ALBUTEROL Inhaler [ProAir HFA 2 puff IH QID PRN #1 inha 03/04/17 Unknown Rx Inhaler] Arformoterol Nebu [Brovana Nebu] 15 mcg IH Q12HRT #60 ml 03/04/17 Unknown Rx Azithromycin [Zithromax TAB] 500 mg PO QDAY #3 tablet 03/04/17 Unknown Rx Mometasone Furoate [Asmanex Hfa] 13 gm IH PRN #1 hfa.aer.ad 03/04/17 Unknown Rx Montelukast [Singulair] 10 mg PO QHS #30 tablet 03/04/17 Unknown Rx Ciprofloxacin HCl [Cipro] 500 mg PO Q12HR 10 Days tablet 07/19/17 Unknown Rx predniSONE [Deltasone] 40 mg PO QDAY #6 tab 07/19/17 Unknown Rx Allergies Allergy/AdvReac Type Severity Reaction Status Date / Time peanut Allergy Angioedema Verified 07/23/16 00:17 ipratropium bromide AdvReac Shortness Verified 09/11/13 07:39 [From Atrovent] of Breath ED Review of Systems ROS: Stated complaint: ANTHONY Other details as noted in HPI Comment: All other systems reviewed and negative ED Past Medical Hx - Past Medical History Previous Medical History?: Yes Hx Congestive Heart Failure: No Hx Diabetes: No Hx Asthma: Yes Hx COPD: Yes Hx Dementia: No Hx HIV: No Additional medical history: hx intubation - Social History Smoking Status: Never Smoker - Medications Home Medications: Home Medications Medication Instructions Recorded Confirmed Last Taken Type ALBUTEROL Inhaler [ProAir HFA 2 puff IH QID PRN #1 inha 03/04/17 Unknown Rx Inhaler] Arformoterol Nebu [Brovana Nebu] 15 mcg IH Q12HRT #60 ml 03/04/17 Unknown Rx Azithromycin [Zithromax TAB] 500 mg PO QDAY #3 tablet 03/04/17 Unknown Rx Mometasone Furoate [Asmanex Hfa] 13 gm IH PRN #1 hfa.aer.ad 03/04/17 Unknown Rx Montelukast [Singulair] 10 mg PO QHS #30 tablet 03/04/17 Unknown Rx Ciprofloxacin HCl [Cipro] 500 mg PO Q12HR 10 Days tablet 07/19/17 Unknown Rx predniSONE [Deltasone] 40 mg PO QDAY #6 tab 07/19/17 Unknown Rx ED Physical Exam - General Limitations: No Limitations - Other Other exam information: General: No limitations, patient is alert in no acute distress Head exam: Atraumatic, normocephalic Eyes exam: Normal appearance, pupils equal reactive to light, extraocular movements intact ENT: Moist mucous membrane, normal oropharynx Neck exam: Normal inspection, full range of motion, no meningismus nontender Respiratory exam: Clear to auscultation bilateral, no wheezes, rales, crackles Cardiovascular: Normal rate and rhythm, normal heart sounds Abdomen: Soft, nondistended, and nontender, with normal bowel sounds, no rebound, or guarding Extremity: Full range of motion normal inspection no deformity Back: Normal Inspection, full range of motion, no tenderness Neurologic: Alert, oriented x3, cranial nerves intact, no motor or sensory deficit Psychiatric: normal affect, normal mood Skin: Warm, dry, intact ED Course Vital Signs 09/12/17 21:46 Temperature 98.8 F Pulse Rate 97 H Respiratory 22 Rate Blood Pressure 147/73 O2 Sat by Pulse 98 Oximetry ED Medical Decision Making - Lab Data Result diagrams: 09/12/17 22:11 09/12/17 22:11 Lab Results 09/12/17 09/12/17 09/13/17 Range/Units 22:11 22:11 00:16 WBC 9.0 (4.5-11.0) K/mm3 RBC 3.84 (3.65-5.03) M/mm3 Hgb 12.8 (10.1-14.3) gm/dl Hct 41.1 (30.3-42.9) % MCV 107 H (79-97) fl MCH 33 H (28-32) pg MCHC 31 (30-34) % RDW 13.5 (13.2-15.2) % Plt Count 269 (140-440) K/mm3 Lymph % (Auto) 13.4 (13.4-35.0) % [place] % (Auto) 5.7 (0.0-7.3) % Eos % (Auto) 0.2 (0.0-4.3) % Baso % (Auto) 0.1 (0.0-1.8) % Lymph # 1.2 (1.2-5.4) K/mm3 [place] # 0.5 (0.0-0.8) K/mm3 Eos # 0.0 (0.0-0.4) K/mm3 Baso # 0.0 (0.0-0.1) K/mm3 Seg Neutrophils % 80.6 H (40.0-70.0) % Seg Neutrophils # 7.3 (1.8-7.7) K/mm3 POC ABG pH 7.301 L (7.35-7.45) POC ABG pCO2 101.6 H (35-45) POC ABG pO2 87 (80-105) POC ABG HCO3 50.1 POC ABG Total CO2 > 50 POC ABG O2 Sat 94 POC ABG Base Excess 24 FiO2 3 % Sodium 141 (137-145) mmol/L Potassium 4.2 (3.6-5.0) mmol/L Chloride 94.9 L (98-107) mmol/L Carbon Dioxide 46 H* (22-30) mmol/L Anion Gap 4 mmol/L BUN 12 (7-17) mg/dL Creatinine 0.3 L (0.7-1.2) mg/dL Estimated GFR > 60 ml/min BUN/Creatinine Ratio 40 % Glucose 130 H (65-100) mg/dL Calcium 8.7 (8.4-10.2) mg/dL - EKG Data -: EKG Interpreted by Me (septal infarct) EKG shows normal: sinus rhythm, axis (99), QRS complexes (98), ST-T waves (no stemi/t inv) Rate: normal (89) - EKG Data When compared to previous EKG there are: no significant change (07/23/16) - Radiology Data Radiology results: report reviewed Read by radiologist Chest x-ray: Stable cardiomegaly no acute findings - Medical Decision Making Patient has significant elevated CO2 level with mild acidosis. Acute on chronic respiratory failure Persistent wheezing despite eating treatment BiPAP initiated Will be admitted to the hospital for further treatment - Differential Diagnosis copd, asthma, pnemonia, chf Critical Care Time: No Critical care attestation.: If time is entered above; I have spent that time in minutes in the direct care of this critically ill patient, excluding procedure time. ED Disposition Clinical Impression: COPD exacerbation, CO2 retention, Uncompensated respiratory acidosis Disposition: OP ADMIT IP TO THIS HOSP Is pt being admited?: Yes Condition: Stable Time of Disposition: 00:26
--- NOTE | 2017-09-12 22:51 | XRay Report ---
FINAL REPORT EXAM: XR CHEST 1V AP HISTORY: Shortness of breath TECHNIQUE: AP portable view of the chest. PRIORS: 07/19/2017 FINDINGS: The cardiac silhouette is mildly to moderately enlarged without change. The pulmonary vascularity appears normal. The lungs are clear. The bones and soft tissues are unremarkable. IMPRESSION: Stable cardiomegaly. No acute findings.
[2017-09-12 22:57] LABS: BUN/Creatinine Ratio 40; Blood Urea Nitrogen 12 mg/dL (7-17); Calcium 8.7 mg/dL (8.4-10.2); Hemolysis Index 4
--- NOTE | 2017-09-13 02:43 | History and Physical Report ---
History of Present Illness Date of examination: 09/13/17 History of present illness: This 58-year-old woman with a history of COPD on home oxygen came to the emergency room today she developed shortness of breath x 5 days. Patient is using nebulizer treatment with minimal improvement in her symptoms. Complains of cough, no fever or chills. Patient was placed on BiPAP, PCO2 of 101 Review Of Systems: Constitutional: no weight loss Ears, eyes, nose, mouth and throat: no nasal congestion, no nasal discharge, no sinus pressure, blurry vision, diplopia Neck: No neck pain or rigidity. Cardiovascular: no Chest pain, orthopnea, palpitations Respiratory: + shortness of breath, cough Gastrointestinal: no abdominal pain, hematochezia Genitourinary : no dysuria, frequency , hematuria Musculoskeletal: no muscle ache Integumentary: no rash, no pruritis Neurological: no parathesias, focal weakness Endocrine: no cold or heat intolerance, no polyuria or polydipsia Hematologic/Lymphatic: no easy bruising, no easy bleeding, no gland swelling Allergic/Immunologic: no urticaria, no angioedema. PAST SURGICAL HISTORY: x1 SOCIAL HISTORY: Denies tobacco, drugs, alcohol use FAMILY HISTORY: Hypertension, blood clots Medications and Allergies Allergies Allergy/AdvReac Type Severity Reaction Status Date / Time peanut Allergy Angioedema Verified 07/23/16 00:17 ipratropium bromide AdvReac Shortness Verified 09/11/13 07:39 [From Atrovent] of Breath Home Medications Medication Instructions Recorded Confirmed Last Taken Type ALBUTEROL Inhaler [ProAir HFA 2 puff IH QID PRN #1 inha 03/04/17 09/13/17 Unknown Rx Inhaler] Arformoterol Nebu [Brovana Nebu] 15 mcg IH Q12HRT #60 ml 03/04/17 09/13/17 Unknown Rx Mometasone Furoate [Asmanex Hfa] 13 gm IH PRN #1 hfa.aer.ad 03/04/17 09/13/17 Unknown Rx Montelukast [Singulair] 10 mg PO QHS #30 tablet 03/04/17 09/13/17 Unknown Rx predniSONE [Deltasone] 40 mg PO QDAY #6 tab 07/19/17 09/13/17 Unknown Rx Exam - Constitutional Vitals: Temp Pulse Resp BP Pulse Ox 98.8 F 76 22 126/71 95 09/12/17 21:46 09/13/17 01:00 09/13/17 01:00 09/13/17 01:00 09/13/17 01:00 Results - Labs CBC & Chem 7: 09/13/17 03:53 09/13/17 03:53 Labs: Abnormal lab results 09/12/17 09/12/17 09/13/17 Range/Units 22:11 22:11 00:16 MCV 107 H (79-97) fl MCH 33 H (28-32) pg Seg Neutrophils % 80.6 H (40.0-70.0) % POC ABG pH 7.301 L (7.35-7.45) POC ABG pCO2 101.6 H (35-45) Chloride 94.9 L (98-107) mmol/L Carbon Dioxide 46 H* (22-30) mmol/L Creatinine 0.3 L (0.7-1.2) mg/dL Glucose 130 H (65-100) mg/dL Assessment and Plan Assessment Acute resiratory failure Acute asthma exacerbation Plan Admit to medicine Start high-dose steroids, nebulizer treatment Continue BIPAP, pulmonary consult DVT prophylaxis
[2017-09-13] MEDS ORDERED: ZOFRAN IV PRN (02:49)
[2017-09-13] MEDS ORDERED: SODIUM CHLORIDE FLUSH SYRINGE 10 ML IV PRN (02:49)
[2017-09-13 04:13] LABS: Hematocrit 41.6 % (30.3-42.9); Mean Corpuscular HGB Conc 31 % (30-34); Mean Corpuscular Hemoglobin 33 pg (28-32); Mean Corpuscular Volume 107 fl (79-97); Platelet Count 245 K/mm3 (140-440); Red Blood Count 3.91 M/mm3 (3.65-5.03); Red Cell Distribution Width 14.3 % (13.2-15.2)
[2017-09-13 04:46] LABS: BUN/Creatinine Ratio 40; Blood Urea Nitrogen 12 mg/dL (7-17); Calcium 8.7 mg/dL (8.4-10.2); Hemolysis Index 7
[2017-09-13] MEDS ORDERED: NACL 0.9% 1000 ML 1,000 ML ONE (05:31)
[2017-09-13 06:57] LABS: Band Neutrophils # (Manual) 0.4 K/mm3; Basophils % (Manual) 0 % (0.0-1.8); Eosinophils % (Manual) 0 % (0.0-4.3); Total Cells Counted 100
[2017-09-13 06:58] LABS: Anisocytosis 1+; Stomatocytes Rare; Target Cells Rare; Tear Drop Cells Rare
--- NOTE | 2017-09-13 08:28 | Consultation ---
History of Present Illness Consult date: 09/13/17 Requesting physician: KURT PHILLIPS Reason for consult: dyspnea, COPD History of present illness: 62 y/o female with known asthma, COPD, admitted with exacerbation of obstructive lung disease. Patient continues to deny smoking but still lives in a home where individuals smoke. Currently in no distress on Bipap. States that she did follow up with [facility] but she cannot remember what meds she was placed on by her. Remainder of the review is negative. Past History Past Medical History: COPD Past Surgical History: No surgical history Social history: single, lives with family, smoking Family history: no significant family history Medications and Allergies Allergies Allergy/AdvReac Type Severity Reaction Status Date / Time peanut Allergy Angioedema Verified 07/23/16 00:17 ipratropium bromide AdvReac Shortness Verified 09/11/13 07:39 [From Atrovent] of Breath Home Medications Medication Instructions Recorded Confirmed Last Taken Type ALBUTEROL Inhaler [ProAir HFA 2 puff IH QID PRN #1 inha 03/04/17 09/13/17 Unknown Rx Inhaler] Arformoterol Nebu [Brovana Nebu] 15 mcg IH Q12HRT #60 ml 03/04/17 09/13/17 Unknown Rx Mometasone Furoate [Asmanex Hfa] 13 gm IH PRN #1 hfa.aer.ad 03/04/17 09/13/17 Unknown Rx Montelukast [Singulair] 10 mg PO QHS #30 tablet 03/04/17 09/13/17 Unknown Rx predniSONE [Deltasone] 40 mg PO QDAY #6 tab 07/19/17 09/13/17 Unknown Rx Active Meds: Active Medications Acetaminophen (Tylenol) 650 mg PO Q4H PRN PRN Reason: Pain MILD(1-3)/Fever >100.5/PÉREZ Albuterol (Proventil) 2.5 mg IH Q4HRT PRN PRN Reason: Wheezing Arformoterol Tartrate (Brovana Nebu) 15 mcg IH Q12HRT [place] Budesonide (Pulmicort) 0.5 mg IH Q12HRT [place] Enoxaparin Sodium (Lovenox) 40 mg SUB-Q QDAY [place]STIAN Methylprednisolone Sodium Succinate (Solu-Medrol) 60 mg IV Q6H [place]ST[place] Montelukast Sodium (Singulair) 10 mg PO QHS [place] Ondansetron HCl (Zofran) 4 mg IV Q8H PRN PRN Reason: Nausea And Vomiting Sodium Chloride (Sodium Chloride Flush Syringe 10 Ml) 10 ml IV BID SEBASTIAN Sodium Chloride (Sodium Chloride Flush Syringe 10 Ml) 10 ml IV PRN PRN PRN Reason: LINE FLUSH Review of Systems All systems: negative Physical Examination Vital signs: Vital Signs Temp Pulse Resp BP Pulse Ox 98.8 F 97 H 22 147/73 98 09/12/17 21:46 09/12/17 21:46 09/12/17 21:46 09/12/17 21:46 09/12/17 21:46 General appearance: no acute distress, alert, other (cachetic) Eyes: non-icteric ENT: oropharynx dry Neck: supple, no lymphadenopathy Effort: normal Ascultation: Bilateral: diminished breath sounds Percussion: Bilateral: not dull Tactile fremitus: Bilateral: normal Cardiovascular: regular rate and rhythm Gastrointestinal: normoactive bowel sounds, soft, non-tender Extremities: no cyanosis, no edema, pink and warm normal mental status, non-focal exam Results - Laboratory Findings CBC and BMP: 09/13/17 03:53 09/13/17 03:53 ABG POC ABG pH 7.235 (7.35-7.45) L 09/13/17 02:40 POC ABG pCO2 118.4 (35-45) H 09/13/17 02:40 POC ABG pO2 115 (80-105) H 09/13/17 02:40 POC ABG HCO3 50.2 09/13/17 02:40 POC ABG Total CO2 > 50 09/13/17 02:40 POC ABG O2 Sat 97 09/13/17 02:40 Abnormal lab findings: Abnormal Labs 09/12/17 09/12/17 09/13/17 22:11 22:11 00:16 MCV 107 H MCH 33 H Seg Neutrophils % 80.6 H Seg Neuts % (Manual) Lymphocytes % (Manual) Lymphocytes # (Manual) POC ABG pH 7.301 L POC ABG pCO2 101.6 H POC ABG pO2 Chloride 94.9 L Carbon Dioxide 46 H* Creatinine 0.3 L Glucose 130 H 09/13/17 09/13/17 09/13/17 02:40 03:53 03:53 MCV 107 H MCH 33 H Seg Neutrophils % Seg Neuts % (Manual) 84.0 H Lymphocytes % (Manual) 8.0 L Lymphocytes # (Manual) 0.5 L POC ABG pH 7.235 L POC ABG pCO2 118.4 H POC ABG pO2 115 H Chloride 94.1 L Carbon Dioxide 43 H* Creatinine 0.3 L Glucose 111 H - Diagnostic Findings Chest x-ray: image reviewed (clear cxr with evidence of hyperinflation, consistent with underlying diagnosis) Assessment and Plan 62 y/o female with acute on chronic respiratory failure, thought secondary to COPD exacerbation. 1. Hypercapnea: most likely chronic in nature. Needs some form of PPV at night. This was suggested the last time we saw here as an admit. Will call office and follow up with outpatient notes. 2. Changed steroids to 60q6 3. Added BID pulmicort and brovana 4. Continue PRN albuterol, per chart patient with an allergy to anticholinergics 5. Wean Bipap therapy but continue at night 6. Likely will recheck ABG tomorrow
[2017-09-13] MEDS: BROVANA NEBU IH SCH ×2 (09:10→22:32)
[2017-09-13] MEDS: PULMICORT IH SCH ×2 (09:10→22:32)
[2017-09-13] MEDS: TYLENOL PO PRN (10:00)
[2017-09-13] MEDS: LOVENOX SUB-Q SCH (10:02)
[2017-09-13] MEDS: SODIUM CHLORIDE FLUSH SYRINGE 10 ML IV SCH ×2 (21:57)
[2017-09-13] MEDS: SINGULAIR PO SCH (21:58)
[2017-09-14] MEDS: TYLENOL PO PRN ×2 (01:38→22:43)
[2017-09-14] MEDS: BROVANA NEBU IH SCH ×2 (09:17→20:37)
[2017-09-14] MEDS: PULMICORT IH SCH ×2 (09:17→20:37)
--- NOTE | 2017-09-14 09:52 | Progress Note ---
Assessment and Plan Assessment and plan: This 58-year-old woman with a history of COPD on home oxygen came to the emergency room today she developed shortness of breath x 5 days. Patient is using nebulizer treatment with minimal improvement in her symptoms. Complains of cough, no fever or chills. Patient was placed on BiPAP, PCO2 of 101 Assessment Acute respiratory failure Acute asthma exacerbation Plan continue high-dose steroids, nebulizer treatment Continue BIPAP as needed, pulmonary consult DVT prophylaxis History Interval history: she is still c/o sob, wheezing and [place] no cp, no vomiting, no fever, no PÉREZ, no focal weakness Hospitalist Physical - Constitutional Vitals: Temp Pulse Resp BP Pulse Ox 97.9 F 91 H 16 115/56 95 09/14/17 03:36 09/14/17 09:22 09/14/17 09:22 09/14/17 03:36 09/14/17 03:36 General appearance: Present: no acute distress - EENT Eyes: Present: PERRL ENT: hearing intact - Neck Neck: Present: supple - Respiratory Respiratory effort: pursed lips Respiratory: bilateral: diminished, wheezing - Cardiovascular Rhythm: regular Heart Sounds: Present: S1 & S2 - Abdominal General gastrointestinal: soft, non-tender, non-distended, normal bowel sounds - Integumentary Integumentary: Present: clear, warm, dry - Psychiatric Psychiatric: appropriate mood/affect, intact judgment & insight - Neurologic Neurologic: CNII-XII intact, moves all extremities Results - Labs CBC & Chem 7: 09/13/17 03:53 09/13/17 03:53 Labs: Laboratory Last Values WBC 6.5 K/mm3 (4.5-11.0) 09/13/17 03:53 RBC 3.91 M/mm3 (3.65-5.03) 09/13/17 03:53 Hgb 13.0 gm/dl (10.1-14.3) 09/13/17 03:53 Hct 41.6 % (30.3-42.9) 09/13/17 03:53 MCV 107 fl (79-97) H 09/13/17 03:53 MCH 33 pg (28-32) H 09/13/17 03:53 MCHC 31 % (30-34) 09/13/17 03:53 RDW 14.3 % (13.2-15.2) 09/13/17 03:53 Plt Count 245 K/mm3 (140-440) 09/13/17 03:53 Lymph % (Auto) 13.4 % (13.4-35.0) 09/12/17 22:11 [place] % (Auto) 5.7 % (0.0-7.3) 09/12/17 22:11 Eos % (Auto) 0.2 % (0.0-4.3) 09/12/17 22:11 Baso % (Auto) 0.1 % (0.0-1.8) 09/12/17 22:11 Lymph # 1.2 K/mm3 (1.2-5.4) 09/12/17 22:11 [place] # 0.5 K/mm3 (0.0-0.8) 09/12/17 22:11 Eos # 0.0 K/mm3 (0.0-0.4) 09/12/17 22:11 Baso # 0.0 K/mm3 (0.0-0.1) 09/12/17 22:11 Add Manual Diff Complete 09/13/17 03:53 Total Counted 100 09/13/17 03:53 Seg Neutrophils % Milk Bottling Machine Operator 09/13/17 03:53 Seg Neuts % (Manual) 84.0 % (40.0-70.0) H 09/13/17 03:53 Band Neutrophils % 6.0 % 09/13/17 03:53 Lymphocytes % (Manual) 8.0 % (13.4-35.0) L 09/13/17 03:53 Reactive Lymphs % (Man) 0 % 09/13/17 03:53 Monocytes % (Manual) 2.0 % (0.0-7.3) 09/13/17 03:53 Eosinophils % (Manual) 0 % (0.0-4.3) 09/13/17 03:53 Basophils % (Manual) 0 % (0.0-1.8) 09/13/17 03:53 Metamyelocytes % 0 % 09/13/17 03:53 Myelocytes % 0 % 09/13/17 03:53 Promyelocytes % 0 % 09/13/17 03:53 Blast Cells % 0 % 09/13/17 03:53 Nucleated RBC % Not Reportable 09/13/17 03:53 Seg Neutrophils # 7.3 K/mm3 (1.8-7.7) 09/12/17 22:11 Seg Neutrophils # Man 5.5 K/mm3 (1.8-7.7) 09/13/17 03:53 Band Neutrophils # 0.4 K/mm3 09/13/17 03:53 Lymphocytes # (Manual) 0.5 K/mm3 (1.2-5.4) L 09/13/17 03:53 Abs React Lymphs (Man) 0.0 K/mm3 09/13/17 03:53 Monocytes # (Manual) 0.1 K/mm3 (0.0-0.8) 09/13/17 03:53 Eosinophils # (Manual) 0.0 K/mm3 (0.0-0.4) 09/13/17 03:53 Basophils # (Manual) 0.0 K/mm3 (0.0-0.1) 09/13/17 03:53 Metamyelocytes # 0.0 K/mm3 09/13/17 03:53 Myelocytes # 0.0 K/mm3 09/13/17 03:53 Promyelocytes # 0.0 K/mm3 09/13/17 03:53 Blast Cells # 0.0 K/mm3 09/13/17 03:53 WBC Morphology Not Reportable 09/13/17 03:53 Hypersegmented Neuts Not Reportable 09/13/17 03:53 Hyposegmented Neuts Not Reportable 09/13/17 03:53 Hypogranular Neuts Not Reportable 09/13/17 03:53 Smudge Cells Not Reportable 09/13/17 03:53 Toxic Granulation Not Reportable 09/13/17 03:53 Toxic Vacuolation Not Reportable 09/13/17 03:53 Dohle Bodies Not Reportable 09/13/17 03:53 Pelger-Huet Anomaly Not Reportable 09/13/17 03:53 Lindsay Rods Not Reportable 09/13/17 03:53 Platelet Estimate Appears normal 09/13/17 03:53 Clumped Platelets Not Reportable 09/13/17 03:53 Plt Clumps, EDTA Not Reportable 09/13/17 03:53 Large Platelets Not Reportable 09/13/17 03:53 Giant Platelets Not Reportable 09/13/17 03:53 Platelet Satelliting Not Reportable 09/13/17 03:53 Plt Morphology Comment Not Reportable 09/13/17 03:53 RBC Morphology Not Reportable 09/13/17 03:53 Dimorphic RBCs Not Reportable 09/13/17 03:53 Polychromasia Not Reportable 09/13/17 03:53 Hypochromasia Not Reportable 09/13/17 03:53 Poikilocytosis Not Reportable 09/13/17 03:53 Anisocytosis 1+ 09/13/17 03:53 Microcytosis Not Reportable 09/13/17 03:53 Macrocytosis Not Reportable 09/13/17 03:53 Spherocytes Not Reportable 09/13/17 03:53 Pappenheimer Bodies Not Reportable 09/13/17 03:53 Sickle Cells Not Reportable 09/13/17 03:53 Target Cells Rare 09/13/17 03:53 Tear Drop Cells Rare 09/13/17 03:53 Ovalocytes Not Reportable 09/13/17 03:53 Stomatocytes Rare 09/13/17 03:53 Helmet Cells Not Reportable 09/13/17 03:53 [place] Bodies Not Reportable 09/13/17 03:53 [place] Rings Not Reportable 09/13/17 03:53 [place] Cells Not Reportable 09/13/17 03:53 Bite Cells Not Reportable 09/13/17 03:53 Crenated Cell Not Reportable 09/13/17 03:53 Elliptocytes Not Reportable 09/13/17 03:53 Acanthocytes (Spur) Not Reportable 09/13/17 03:53 Rouleaux Not Reportable 09/13/17 03:53 Hemoglobin C Crystals Not Reportable 09/13/17 03:53 Schistocytes Not Reportable 09/13/17 03:53 Malaria parasites Not Reportable 09/13/17 03:53 [place] Bodies Not Reportable 09/13/17 03:53 Hem Pathologist Commnt No 09/13/17 03:53 POC ABG pH 7.235 (7.35-7.45) L 09/13/17 02:40 POC ABG pCO2 118.4 (35-45) H 09/13/17 02:40 POC ABG pO2 115 (80-105) H 09/13/17 02:40 POC ABG HCO3 50.2 09/13/17 02:40 POC ABG Total CO2 > 50 09/13/17 02:40 POC ABG O2 Sat 97 09/13/17 02:40 POC ABG Base Excess 23 09/13/17 02:40 FiO2 50 % 09/13/17 02:40 Sodium 142 mmol/L (137-145) 09/13/17 03:53 Potassium 4.6 mmol/L (3.6-5.0) 09/13/17 03:53 Chloride 94.1 mmol/L (98-107) L 09/13/17 03:53 Carbon Dioxide 43 mmol/L (22-30) H* 09/13/17 03:53 Anion Gap 10 mmol/L 09/13/17 03:53 BUN 12 mg/dL (7-17) 09/13/17 03:53 Creatinine 0.3 mg/dL (0.7-1.2) L 09/13/17 03:53 Estimated GFR > 60 ml/min 09/13/17 03:53 BUN/Creatinine Ratio 40 % 09/13/17 03:53 Glucose 111 mg/dL (65-100) H 09/13/17 03:53 Calcium 8.7 mg/dL (8.4-10.2) 09/13/17 03:53
[2017-09-14] MEDS: LOVENOX SUB-Q SCH (10:48)
[2017-09-14] MEDS: SODIUM CHLORIDE FLUSH SYRINGE 10 ML IV SCH ×2 (12:15→22:42)
--- NOTE | 2017-09-14 13:34 | Progress Note ---
Assessment and Plan 62 y/o female with acute on chronic respiratory failure, thought secondary to COPD exacerbation. 1. Hypercapnea: most likely chronic in nature. Will try off of bipap therapy in the am and obtain ABG. If she remains hypercapnic or if clinicaly she is worse and has to go back on at night, she absolutely needs PPV at night. 2. Continue steroids at 60q6 3. Continue BID pulmicort and brovana 4. Continue PRN albuterol, per chart patient with an allergy to anticholinergics 5. Wean Bipap therapy, will hold tonight. Subjective Date of service: 09/14/17 Interval history: Patient feels better, but still winded with minimal exertion. Currently on phone in no distress. Wore bipap last night but does not like it. Objective Vital Signs - 12hr 09/14/17 09/14/17 09/14/17 02:46 03:36 09:21 Temperature 97.9 F Pulse Rate 81 80 Pulse Rate [ 87 Anterior Bilateral Throughout] Respiratory 26 H 20 Rate Respiratory 18 Rate [Anterior Bilateral Throughout] Blood Pressure 115/56 O2 Sat by Pulse 95 95 Oximetry 09/14/17 09:22 Temperature Pulse Rate Pulse Rate [ 91 H Anterior Bilateral Throughout] Respiratory Rate Respiratory 16 Rate [Anterior Bilateral Throughout] Blood Pressure O2 Sat by Pulse Oximetry Constitutional: no acute distress, alert, other (cachetic) Eyes: non-icteric ENT: oropharynx dry Neck: supple, no lymphadenopathy Effort: normal Ascultation: Bilateral: diminished breath sounds Percussion: Bilateral: not dull Tactile fremitus: Bilateral: normal Cardiovascular: regular rate and rhythm Gastrointestinal: normoactive bowel sounds, soft, non-tender Extremities: no cyanosis, no edema, pink and warm Neurologic: normal mental status, non-focal exam CBC and BMP: 09/13/17 03:53 09/13/17 03:53 ABG, PT/INR, D-dimer: ABG POC ABG pH 7.235 (7.35-7.45) L 09/13/17 02:40 POC ABG pCO2 118.4 (35-45) H 09/13/17 02:40 POC ABG pO2 115 (80-105) H 09/13/17 02:40 POC ABG HCO3 50.2 09/13/17 02:40 POC ABG Total CO2 > 50 09/13/17 02:40 POC ABG O2 Sat 97 09/13/17 02:40 Abnormal lab findings: Abnormal Labs 09/12/17 09/12/17 09/13/17 22:11 22:11 00:16 MCV 107 H MCH 33 H Seg Neutrophils % 80.6 H Seg Neuts % (Manual) Lymphocytes % (Manual) Lymphocytes # (Manual) POC ABG pH 7.301 L POC ABG pCO2 101.6 H POC ABG pO2 Chloride 94.9 L Carbon Dioxide 46 H* Creatinine 0.3 L Glucose 130 H 09/13/17 09/13/17 09/13/17 02:40 03:53 03:53 MCV 107 H MCH 33 H Seg Neutrophils % Seg Neuts % (Manual) 84.0 H Lymphocytes % (Manual) 8.0 L Lymphocytes # (Manual) 0.5 L POC ABG pH 7.235 L POC ABG pCO2 118.4 H POC ABG pO2 115 H Chloride 94.1 L Carbon Dioxide 43 H* Creatinine 0.3 L Glucose 111 H
[2017-09-14] MEDS: SINGULAIR PO SCH (22:43)
[2017-09-15] MEDS: PULMICORT IH SCH ×2 (09:07→20:28)
[2017-09-15] MEDS: BROVANA NEBU IH SCH ×2 (09:07→20:28)
[2017-09-15] MEDS: TYLENOL PO PRN (09:15)
[2017-09-15] MEDS: LOVENOX SUB-Q SCH (09:17)
--- NOTE | 2017-09-15 09:36 | Progress Note ---
Assessment and Plan 62 y/o female with acute on chronic respiratory failure, thought secondary to COPD exacerbation. 1. Consult CM for triology machine at home 2. Will given flexaril as a one time dose 3. If patient is asleep longer than 1 hours, please place on bipap. I have discussed this with RT and nursing. 4. Will change steroids to q12 dosing today 5. Continue all other pulm medications as ordered. Subjective Date of service: 09/15/17 Interval history: No acute events. Placed on bipap despite orders to not do this. Patient states that she does not mind sleeping with bipap but has not had a good night' s sleep. Has tight muscles in her back and is requesting a muscle relaxant. Objective Vital Signs - 12hr 09/14/17 09/14/17 09/14/17 22:00 22:43 23:46 Temperature Pulse Rate 82 Pulse Rate [ Anterior Bilateral Throughout] Respiratory 20 24 Rate Respiratory Rate [Anterior Bilateral Throughout] Respiratory 20 Rate [Upper Back] Blood Pressure [Left] O2 Sat by Pulse 99 Oximetry 09/14/17 09/15/17 09/15/17 23:56 05:21 09:10 Temperature 98.3 F 97.9 F Pulse Rate 79 81 Pulse Rate [ 88 Anterior Bilateral Throughout] Respiratory 18 18 Rate Respiratory 20 Rate [Anterior Bilateral Throughout] Respiratory Rate [Upper Back] Blood Pressure 135/73 136/76 [Left] O2 Sat by Pulse 98 98 Oximetry 09/15/17 09/15/17 09/15/17 09:11 09:15 09:21 Temperature Pulse Rate Pulse Rate [ Anterior Bilateral Throughout] Respiratory 20 Rate Respiratory Rate [Anterior Bilateral Throughout] Respiratory 20 Rate [Upper Back] Blood Pressure [Left] O2 Sat by Pulse 92 Oximetry Constitutional: no acute distress, alert, other (cachetic) Eyes: non-icteric ENT: oropharynx dry Neck: supple, no lymphadenopathy Effort: normal Ascultation: Bilateral: diminished breath sounds Percussion: Bilateral: not dull Tactile fremitus: Bilateral: normal Cardiovascular: regular rate and rhythm Gastrointestinal: normoactive bowel sounds, soft, non-tender Extremities: no cyanosis, no edema, pink and warm Neurologic: normal mental status, non-focal exam CBC and BMP: 09/13/17 03:53 09/13/17 03:53 ABG, PT/INR, D-dimer: ABG POC ABG pH 7.235 (7.35-7.45) L 09/13/17 02:40 POC ABG pCO2 118.4 (35-45) H 09/13/17 02:40 POC ABG pO2 115 (80-105) H 09/13/17 02:40 POC ABG HCO3 50.2 09/13/17 02:40 POC ABG Total CO2 > 50 09/13/17 02:40 POC ABG O2 Sat 97 09/13/17 02:40 Abnormal lab findings: Abnormal Labs 09/12/17 09/12/17 09/13/17 22:11 22:11 00:16 MCV 107 H MCH 33 H Seg Neutrophils % 80.6 H Seg Neuts % (Manual) Lymphocytes % (Manual) Lymphocytes # (Manual) POC ABG pH 7.301 L POC ABG pCO2 101.6 H POC ABG pO2 Chloride 94.9 L Carbon Dioxide 46 H* Creatinine 0.3 L Glucose 130 H 09/13/17 09/13/17 09/13/17 02:40 03:53 03:53 MCV 107 H MCH 33 H Seg Neutrophils % Seg Neuts % (Manual) 84.0 H Lymphocytes % (Manual) 8.0 L Lymphocytes # (Manual) 0.5 L POC ABG pH 7.235 L POC ABG pCO2 118.4 H POC ABG pO2 115 H Chloride 94.1 L Carbon Dioxide 43 H* Creatinine 0.3 L Glucose 111 H
[2017-09-15] MEDS: SODIUM CHLORIDE FLUSH SYRINGE 10 ML IV SCH ×2 (10:00→22:50)
[2017-09-15] MEDS ORDERED: FLEXERIL PO ONE (11:00)
[2017-09-15] MEDS: PROVENTIL IH PRN (14:56)
--- NOTE | 2017-09-15 18:06 | Progress Note ---
Assessment and Plan Assessment and plan: Acute hypoxic/hypercapnic respiratory failure COPD exacerbation -Patient is on Solu-Medrol, nebulizer,oxygen support -continue BIPAP DVT prophylaxis Disposition: possible DC tomorrow. History Interval history: Patient was seen and evaluated this morning, patient is still in respiratory distress. Hospitalist Physical - Physical exam Narrative exam: Not in cardiopulmonary distress. The patient appeared well nourished and normally developed. Vital signs as documented. Head exam is unremarkable. No scleral icterus . Neck is without jugular venous distension, thyromegaly, or carotid bruits. Lungs wheezing all over the chest. Cardiac exam reveals regular rate and Rhythm. First and second heart sounds normal. No murmurs, rubs or gallops. Abdominal exam reveals normal bowel sounds, no masses, no organomegaly and no aortic enlargement. Extremities are nonedematous and both femoral and pedal pulses are normal. MANAGEMENT SUPERVISOR: Alert and oriented 3. No focal weakness. - Constitutional Vitals: Temp Pulse Resp BP Pulse Ox 98.8 F 101 H 18 137/68 92 09/15/17 09:04 09/15/17 15:15 09/15/17 15:15 09/15/17 09:04 09/15/17 10:00 General appearance: Present: no acute distress Results - Labs CBC & Chem 7: 09/13/17 03:53 09/13/17 03:53 Labs: Laboratory Last Values WBC 6.5 K/mm3 (4.5-11.0) 09/13/17 03:53 RBC 3.91 M/mm3 (3.65-5.03) 09/13/17 03:53 Hgb 13.0 gm/dl (10.1-14.3) 09/13/17 03:53 Hct 41.6 % (30.3-42.9) 09/13/17 03:53 MCV 107 fl (79-97) H 09/13/17 03:53 MCH 33 pg (28-32) H 09/13/17 03:53 MCHC 31 % (30-34) 09/13/17 03:53 RDW 14.3 % (13.2-15.2) 09/13/17 03:53 Plt Count 245 K/mm3 (140-440) 09/13/17 03:53 Lymph % (Auto) 13.4 % (13.4-35.0) 09/12/17 22:11 [place] % (Auto) 5.7 % (0.0-7.3) 09/12/17 22:11 Eos % (Auto) 0.2 % (0.0-4.3) 09/12/17 22:11 Baso % (Auto) 0.1 % (0.0-1.8) 09/12/17 22:11 Lymph # 1.2 K/mm3 (1.2-5.4) 09/12/17 22:11 [place] # 0.5 K/mm3 (0.0-0.8) 09/12/17 22:11 Eos # 0.0 K/mm3 (0.0-0.4) 09/12/17 22:11 Baso # 0.0 K/mm3 (0.0-0.1) 09/12/17 22:11 Add Manual Diff Complete 09/13/17 03:53 Total Counted 100 09/13/17 03:53 Seg Neutrophils % Slubber Operator 09/13/17 03:53 Seg Neuts % (Manual) 84.0 % (40.0-70.0) H 09/13/17 03:53 Band Neutrophils % 6.0 % 09/13/17 03:53 Lymphocytes % (Manual) 8.0 % (13.4-35.0) L 09/13/17 03:53 Reactive Lymphs % (Man) 0 % 09/13/17 03:53 Monocytes % (Manual) 2.0 % (0.0-7.3) 09/13/17 03:53 Eosinophils % (Manual) 0 % (0.0-4.3) 09/13/17 03:53 Basophils % (Manual) 0 % (0.0-1.8) 09/13/17 03:53 Metamyelocytes % 0 % 09/13/17 03:53 Myelocytes % 0 % 09/13/17 03:53 Promyelocytes % 0 % 09/13/17 03:53 Blast Cells % 0 % 09/13/17 03:53 Nucleated RBC % Not Reportable 09/13/17 03:53 Seg Neutrophils # 7.3 K/mm3 (1.8-7.7) 09/12/17 22:11 Seg Neutrophils # Man 5.5 K/mm3 (1.8-7.7) 09/13/17 03:53 Band Neutrophils # 0.4 K/mm3 09/13/17 03:53 Lymphocytes # (Manual) 0.5 K/mm3 (1.2-5.4) L 09/13/17 03:53 Abs React Lymphs (Man) 0.0 K/mm3 09/13/17 03:53 Monocytes # (Manual) 0.1 K/mm3 (0.0-0.8) 09/13/17 03:53 Eosinophils # (Manual) 0.0 K/mm3 (0.0-0.4) 09/13/17 03:53 Basophils # (Manual) 0.0 K/mm3 (0.0-0.1) 09/13/17 03:53 Metamyelocytes # 0.0 K/mm3 09/13/17 03:53 Myelocytes # 0.0 K/mm3 09/13/17 03:53 Promyelocytes # 0.0 K/mm3 09/13/17 03:53 Blast Cells # 0.0 K/mm3 09/13/17 03:53 WBC Morphology Not Reportable 09/13/17 03:53 Hypersegmented Neuts Not Reportable 09/13/17 03:53 Hyposegmented Neuts Not Reportable 09/13/17 03:53 Hypogranular Neuts Not Reportable 09/13/17 03:53 Smudge Cells Not Reportable 09/13/17 03:53 Toxic Granulation Not Reportable 09/13/17 03:53 Toxic Vacuolation Not Reportable 09/13/17 03:53 Dohle Bodies Not Reportable 09/13/17 03:53 Pelger-Huet Anomaly Not Reportable 09/13/17 03:53 Lindsay Rods Not Reportable 09/13/17 03:53 Platelet Estimate Appears normal 09/13/17 03:53 Clumped Platelets Not Reportable 09/13/17 03:53 Plt Clumps, EDTA Not Reportable 09/13/17 03:53 Large Platelets Not Reportable 09/13/17 03:53 Giant Platelets Not Reportable 09/13/17 03:53 Platelet Satelliting Not Reportable 09/13/17 03:53 Plt Morphology Comment Not Reportable 09/13/17 03:53 RBC Morphology Not Reportable 09/13/17 03:53 Dimorphic RBCs Not Reportable 09/13/17 03:53 Polychromasia Not Reportable 09/13/17 03:53 Hypochromasia Not Reportable 09/13/17 03:53 Poikilocytosis Not Reportable 09/13/17 03:53 Anisocytosis 1+ 09/13/17 03:53 Microcytosis Not Reportable 09/13/17 03:53 Macrocytosis Not Reportable 09/13/17 03:53 Spherocytes Not Reportable 09/13/17 03:53 Pappenheimer Bodies Not Reportable 09/13/17 03:53 Sickle Cells Not Reportable 09/13/17 03:53 Target Cells Rare 09/13/17 03:53 Tear Drop Cells Rare 09/13/17 03:53 Ovalocytes Not Reportable 09/13/17 03:53 Stomatocytes Rare 09/13/17 03:53 Helmet Cells Not Reportable 09/13/17 03:53 [place] Bodies Not Reportable 09/13/17 03:53 [place] Rings Not Reportable 09/13/17 03:53 [place] Cells Not Reportable 09/13/17 03:53 Bite Cells Not Reportable 09/13/17 03:53 Crenated Cell Not Reportable 09/13/17 03:53 Elliptocytes Not Reportable 09/13/17 03:53 Acanthocytes (Spur) Not Reportable 09/13/17 03:53 Rouleaux Not Reportable 09/13/17 03:53 Hemoglobin C Crystals Not Reportable 09/13/17 03:53 Schistocytes Not Reportable 09/13/17 03:53 Malaria parasites Not Reportable 09/13/17 03:53 [place] Bodies Not Reportable 09/13/17 03:53 Hem Pathologist Commnt No 09/13/17 03:53 POC ABG pH 7.235 (7.35-7.45) L 09/13/17 02:40 POC ABG pCO2 118.4 (35-45) H 09/13/17 02:40 POC ABG pO2 115 (80-105) H 09/13/17 02:40 POC ABG HCO3 50.2 09/13/17 02:40 POC ABG Total CO2 > 50 09/13/17 02:40 POC ABG O2 Sat 97 09/13/17 02:40 POC ABG Base Excess 23 09/13/17 02:40 FiO2 50 % 09/13/17 02:40 Sodium 142 mmol/L (137-145) 09/13/17 03:53 Potassium 4.6 mmol/L (3.6-5.0) 09/13/17 03:53 Chloride 94.1 mmol/L (98-107) L 09/13/17 03:53 Carbon Dioxide 43 mmol/L (22-30) H* 09/13/17 03:53 Anion Gap 10 mmol/L 09/13/17 03:53 BUN 12 mg/dL (7-17) 09/13/17 03:53 Creatinine 0.3 mg/dL (0.7-1.2) L 09/13/17 03:53 Estimated GFR > 60 ml/min 09/13/17 03:53 BUN/Creatinine Ratio 40 % 09/13/17 03:53 Glucose 111 mg/dL (65-100) H 09/13/17 03:53 Calcium 8.7 mg/dL (8.4-10.2) 09/13/17 03:53
[2017-09-15] MEDS: SINGULAIR PO SCH (22:50)
[2017-09-15] MEDS: FLEXERIL PO PRN (23:16)
[2017-09-16] MEDS: PROVENTIL IH PRN ×2 (05:35→15:15)
[2017-09-16 05:41] LABS: ABG Base Excess 19.4 mmol/L (-2.0-3.0); ABG HCO3 50.6 mmol/L (20.0-26.0); ABG Methemoglobin 0.5 % (0.0-1.5); ABG Oxygen Saturation 87.4 % (95.0-99.0); ABG PCO2 101.8 mm Hg; ABG PH 7.315 pH Units (7.350-7.450); ABG PO2 57.9 mm Hg (80.0-90.0)
[2017-09-16 07:25] LABS: Basophils % (Auto) 0.1 % (0.0-1.8); Hematocrit 37.4 % (30.3-42.9); Hemoglobin 11.9 gm/dl (10.1-14.3); Lymphocytes # (Auto) 0.6 K/mm3 (1.2-5.4); Lymphocytes % (Auto) 5.3 % (13.4-35.0); Mean Corpuscular HGB Conc 32 % (30-34); Mean Corpuscular Hemoglobin 34 pg (28-32); Mean Corpuscular Volume 105 fl (79-97); Monocytes # (Auto) 0.7 K/mm3 (0.0-0.8); Monocytes % (Auto) 6.3 % (0.0-7.3); Platelet Count 244 K/mm3 (140-440); Red Blood Count 3.55 M/mm3 (3.65-5.03); Red Cell Distribution Width 13.5 % (13.2-15.2)
[2017-09-16 07:43] LABS: BUN/Creatinine Ratio 53; Blood Urea Nitrogen 16 mg/dL (7-17); Calcium 8.7 mg/dL (8.4-10.2); Hemolysis Index 2
[2017-09-16] MEDS: BROVANA NEBU IH SCH ×2 (08:18→20:21)
[2017-09-16] MEDS: PULMICORT IH SCH ×2 (08:18→20:21)
[2017-09-16] MEDS: LOVENOX SUB-Q SCH (11:19)
[2017-09-16] MEDS: SODIUM CHLORIDE FLUSH SYRINGE 10 ML IV SCH ×2 (11:22→22:50)
--- NOTE | 2017-09-16 12:19 | Progress Note ---
Assessment and Plan 62 y/o female with acute on chronic respiratory failure, thought secondary to COPD exacerbation. 1. Called by [facility], considering discharging patient. No objection from our standpoint. CO2 likely went up from not wearing BIPAP therapy and Bicarb was in response to that plus steroids that she has been on. Per [facility] Triology ordered. 2. Follow up with [facility] as an outpatient, will need outpatient sleep study at some point. 3. If discharged today, will need prolonged steroid taper, 60x4, 40x4, 20x4, 10x4 then stop. 4. Resume home COPD regimen 5. Encourage to move from smoking environment. Subjective Date of service: 09/16/17 Interval history: Patient refused bipap therapy early in the night. Was placed on it some time this am. ABG was drawn which showed worsening CO2 which was to be expected given underlying lung disease and lack of PPV that night. Objective Vital Signs - 12hr 09/16/17 09/16/17 09/16/17 04:17 05:35 05:50 Temperature 97.6 F Pulse Rate 77 Pulse Rate [ 90 92 H Anterior Bilateral Throughout] Respiratory 20 Rate Respiratory 20 20 Rate [Anterior Bilateral Throughout] Blood Pressure 133/68 O2 Sat by Pulse 93 Oximetry 09/16/17 09/16/17 09/16/17 06:29 08:18 08:29 Temperature Pulse Rate 77 Pulse Rate [ 94 H 91 H Anterior Bilateral Throughout] Respiratory 22 Rate Respiratory 20 22 Rate [Anterior Bilateral Throughout] Blood Pressure O2 Sat by Pulse 99 Oximetry 09/16/17 09/16/17 08:53 09:00 Temperature 97.8 F Pulse Rate 78 83 Pulse Rate [ Anterior Bilateral Throughout] Respiratory 20 26 H Rate Respiratory Rate [Anterior Bilateral Throughout] Blood Pressure 153/73 O2 Sat by Pulse 89 96 Oximetry Constitutional: no acute distress, alert, other (cachetic) Eyes: non-icteric ENT: oropharynx dry Neck: supple, no lymphadenopathy Effort: normal Ascultation: Bilateral: diminished breath sounds Percussion: Bilateral: not dull Tactile fremitus: Bilateral: normal Cardiovascular: regular rate and rhythm Gastrointestinal: normoactive bowel sounds, soft, non-tender Extremities: no cyanosis, no edema, pink and warm Neurologic: normal mental status, non-focal exam CBC and BMP: 09/16/17 07:04 09/16/17 07:04 ABG, PT/INR, D-dimer: ABG POC ABG pH 7.235 (7.35-7.45) L 09/13/17 02:40 ABG pH 7.315 pH Units (7.350-7.450) L 09/16/17 Unknown POC ABG pCO2 118.4 (35-45) H 09/13/17 02:40 ABG pCO2 101.8 mm Hg 09/16/17 Unknown POC ABG pO2 115 (80-105) H 09/13/17 02:40 ABG pO2 57.9 mm Hg (80.0-90.0) L 09/16/17 Unknown POC ABG HCO3 50.2 09/13/17 02:40 POC ABG Total CO2 > 50 09/13/17 02:40 POC ABG O2 Sat 97 09/13/17 02:40 ABG O2 Saturation 87.4 % (95.0-99.0) L 09/16/17 Unknown Abnormal lab findings: Abnormal Labs 09/12/17 09/12/17 09/13/17 22:11 22:11 00:16 WBC RBC MCV 107 H MCH 33 H Lymph % (Auto) Lymph # Seg Neutrophils % 80.6 H Seg Neuts % (Manual) Lymphocytes % (Manual) Seg Neutrophils # Lymphocytes # (Manual) POC ABG pH 7.301 L ABG pH POC ABG pCO2 101.6 H POC ABG pO2 ABG pO2 ABG HCO3 ABG O2 Saturation ABG Base Excess Oxyhemoglobin Chloride 94.9 L Carbon Dioxide 46 H* Creatinine 0.3 L Glucose 130 H 09/13/17 09/13/17 09/13/17 02:40 03:53 03:53 WBC RBC MCV 107 H MCH 33 H Lymph % (Auto) Lymph # Seg Neutrophils % Seg Neuts % (Manual) 84.0 H Lymphocytes % (Manual) 8.0 L Seg Neutrophils # Lymphocytes # (Manual) 0.5 L POC ABG pH 7.235 L ABG pH POC ABG pCO2 118.4 H POC ABG pO2 115 H ABG pO2 ABG HCO3 ABG O2 Saturation ABG Base Excess Oxyhemoglobin Chloride 94.1 L Carbon Dioxide 43 H* Creatinine 0.3 L Glucose 111 H 09/16/17 09/16/17 09/16/17 07:04 07:04 Unknown WBC 11.5 H RBC 3.55 L MCV 105 H MCH 34 H Lymph % (Auto) 5.3 L Lymph # 0.6 L Seg Neutrophils % 88.3 H Seg Neuts % (Manual) Lymphocytes % (Manual) Seg Neutrophils # 10.2 H Lymphocytes # (Manual) POC ABG pH ABG pH 7.315 L POC ABG pCO2 POC ABG pO2 ABG pO2 57.9 L ABG HCO3 50.6 H ABG O2 Saturation 87.4 L ABG Base Excess 19.4 H Oxyhemoglobin 85.6 L Chloride 93.2 L Carbon Dioxide 50 H* D Creatinine 0.3 L Glucose
--- NOTE | 2017-09-16 12:26 | Discharge Summary ---
Providers - Providers Date of Admission: 09/13/17 02:50 Date of discharge: 09/16/17 Attending physician: VETO CAVAZOS MD 09/13/17 02:49 Consult to Physician [CONS] Routine Comment: Consulting Provider: CAROL PRATER Physician Instructions: Reason For Exam: COPD 09/16/17 09:47 Consult to Case Management [CONS] Routine Services Needed at Discharge: Other Comment:: Patient need triology machine at discharge. Primary care physician: KATH CRUZ Hospitalization Reason for admission: COPD exacerbation Condition: Stable Pertinent studies: CXR no acute chest abnormality Hospital course: This 58-year-old woman with a history of COPD on home oxygen came to the emergency room today she developed shortness of breath x 5 days. Patient is using nebulizer treatment with minimal improvement in her symptoms. Complains of cough, no fever or chills. Patient was placed on BiPAP, PCO2 of 101. Patient was admitted for acute on chronic hypercapnic respiratory failure secondary to COPD exaerbation and patient was treated with IV solu-medrol, antibiotic, nebulizer, Bipap and oxygen support and patient showed marked improvement and discharged hoem in a stable condition. Pulmonary consult appreciated. Patient needed triology machine and will be delivered at home. Patient is on home O2. Appropriate medication scripts was given at the time of discharge. Patient was at her baseline at the time of discharge. Disposition: DC-01 TO HOME OR SELFCARE Time spent for discharge: 31 minutes - Discharge Diagnoses (1) CO2 retention Status: Chronic (2) COPD exacerbation Status: Acute (3) Uncompensated respiratory acidosis Status: Chronic (4) Oxygen dependent Status: Acute (5) HTN (hypertension) Status: Chronic Core Measure Documentation - Palliative Care Palliative Care/ Comfort Measures: Not Applicable - Core Measures Any of the following diagnoses?: none Exam - Physical Exam Narrative exam: Not in cardiopulmonary distress. The patient appeared well nourished and normally developed. Vital signs as documented. Head exam is unremarkable. No scleral icterus . Neck is without jugular venous distension, thyromegaly, or carotid bruits. Lungs CTAB. Cardiac exam reveals regular rate and Rhythm. First and second heart sounds normal. No murmurs, rubs or gallops. Abdominal exam reveals normal bowel sounds, no masses, no organomegaly and no aortic enlargement. Extremities are nonedematous and both femoral and pedal pulses are normal. 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 No focal weakness. - Constitutional Vitals: Temp Pulse Resp BP Pulse Ox 97.8 F 83 26 H 153/73 96 09/16/17 08:53 09/16/17 09:00 09/16/17 09:00 09/16/17 08:53 09/16/17 09:00 Plan Activity: no restrictions Weight Bearing Status: Full Weight Bearing Diet: low cholesterol, low salt Follow up with: KATH CRUZ MD [Primary Care Provider] - 7 Days Prescriptions: Montelukast [Singulair] 10 mg PO QHS #30 tablet ALBUTEROL Inhaler [ProAir HFA Inhaler] 2 puff IH QID PRN #1 inha PRN Reason: Shortness Of Breath ALBUTEROL NEB's [Proventil 0.083% NEBS] 2.5 mg IH Q4HRT PRN #60 nebu PRN Reason: Wheezing Arformoterol Nebu [Brovana Nebu] 15 mcg IH Q12HRT #60 ml Levofloxacin [Levaquin TAB] 500 mg PO QDAY #5 tablet Mometasone Furoate [Asmanex Hfa] 13 gm IH PRN #1 [id number] Prednisone [predniSONE 10 mg (6-Day Pack, 21 Tabs)] 10 mg PO .TAPER #1 tab.ds.pk
[2017-09-16] MEDS: TYLENOL PO PRN (16:45)
[2017-09-16] MEDS: SINGULAIR PO SCH (22:55)
[2017-09-16] MEDS: FLEXERIL PO PRN (23:44)
[2017-09-17] MEDS: PULMICORT IH SCH (08:43)
[2017-09-17] MEDS: BROVANA NEBU IH SCH (08:44)
[2017-09-17 09:27] VITALS: BP 150/72
[2017-09-17] MEDS: TYLENOL PO PRN (10:30)
[2017-09-17] MEDS: LOVENOX SUB-Q SCH (10:30)
[2017-09-17] MEDS: SODIUM CHLORIDE FLUSH SYRINGE 10 ML IV SCH (10:31)
--- NOTE | 2017-09-17 13:47 | Progress Note ---
Assessment and Plan Assessment and plan: Acute hypoxic/hypercapnic respiratory failure COPD exacerbation -Patient is on Solu-Medrol, nebulizer,oxygen support -Will give her tr DVT prophylaxis Disposition: possible DC today. Triology machine can be given as an O/P. - Patient Problems (1) CO2 retention Current Visit: Yes Status: Acute (2) COPD exacerbation Current Visit: Yes Status: Acute (3) Uncompensated respiratory acidosis Current Visit: Yes Status: Acute (4) Oxygen dependent Current Visit: No Status: Acute (5) HTN (hypertension) Current Visit: No Status: Chronic History Interval history: Patient was seen and evaluated this morning, patient said she feels better today. Hospitalist Physical - Physical exam Narrative exam: Not in cardiopulmonary distress. The patient appeared well nourished and normally developed. Vital signs as documented. Head exam is unremarkable. No scleral icterus . Neck is without jugular venous distension, thyromegaly, or carotid bruits. Lungs CTAB. Cardiac exam reveals regular rate and Rhythm. First and second heart sounds normal. No murmurs, rubs or gallops. Abdominal exam reveals normal bowel sounds, no masses, no organomegaly and no aortic enlargement. Extremities are nonedematous and both femoral and pedal pulses are normal. LOG INSPECTOR: Alert and oriented 3. No focal weakness. - Constitutional Vitals: Temp Pulse Resp BP Pulse Ox 97.5 F L 79 16 150/72 85 09/17/17 08:59 09/17/17 09:34 09/17/17 08:59 09/17/17 08:59 09/17/17 08:44 General appearance: Present: no acute distress Results - Labs CBC & Chem 7: 09/16/17 07:04 09/16/17 07:04 Labs: Laboratory Last Values WBC 11.5 K/mm3 (4.5-11.0) H 09/16/17 07:04 RBC 3.55 M/mm3 (3.65-5.03) L 09/16/17 07:04 Hgb 11.9 gm/dl (10.1-14.3) 09/16/17 07:04 Hct 37.4 % (30.3-42.9) 09/16/17 07:04 MCV 105 fl (79-97) H 09/16/17 07:04 MCH 34 pg (28-32) H 09/16/17 07:04 MCHC 32 % (30-34) 09/16/17 07:04 RDW 13.5 % (13.2-15.2) 09/16/17 07:04 Plt Count 244 K/mm3 (140-440) 09/16/17 07:04 Lymph % (Auto) 5.3 % (13.4-35.0) L 09/16/17 07:04 [place] % (Auto) 6.3 % (0.0-7.3) 09/16/17 07:04 Eos % (Auto) 0.0 % (0.0-4.3) 09/16/17 07:04 Baso % (Auto) 0.1 % (0.0-1.8) 09/16/17 07:04 Lymph # 0.6 K/mm3 (1.2-5.4) L 09/16/17 07:04 [place] # 0.7 K/mm3 (0.0-0.8) 09/16/17 07:04 Eos # 0.0 K/mm3 (0.0-0.4) 09/16/17 07:04 Baso # 0.0 K/mm3 (0.0-0.1) 09/16/17 07:04 Add Manual Diff Complete 09/13/17 03:53 Total Counted 100 09/13/17 03:53 Seg Neutrophils % 88.3 % (40.0-70.0) H 09/16/17 07:04 Seg Neuts % (Manual) 84.0 % (40.0-70.0) H 09/13/17 03:53 Band Neutrophils % 6.0 % 09/13/17 03:53 Lymphocytes % (Manual) 8.0 % (13.4-35.0) L 09/13/17 03:53 Reactive Lymphs % (Man) 0 % 09/13/17 03:53 Monocytes % (Manual) 2.0 % (0.0-7.3) 09/13/17 03:53 Eosinophils % (Manual) 0 % (0.0-4.3) 09/13/17 03:53 Basophils % (Manual) 0 % (0.0-1.8) 09/13/17 03:53 Metamyelocytes % 0 % 09/13/17 03:53 Myelocytes % 0 % 09/13/17 03:53 Promyelocytes % 0 % 09/13/17 03:53 Blast Cells % 0 % 09/13/17 03:53 Nucleated RBC % Not Reportable 09/13/17 03:53 Seg Neutrophils # 10.2 K/mm3 (1.8-7.7) H 09/16/17 07:04 Seg Neutrophils # Man 5.5 K/mm3 (1.8-7.7) 09/13/17 03:53 Band Neutrophils # 0.4 K/mm3 09/13/17 03:53 Lymphocytes # (Manual) 0.5 K/mm3 (1.2-5.4) L 09/13/17 03:53 Abs React Lymphs (Man) 0.0 K/mm3 09/13/17 03:53 Monocytes # (Manual) 0.1 K/mm3 (0.0-0.8) 09/13/17 03:53 Eosinophils # (Manual) 0.0 K/mm3 (0.0-0.4) 09/13/17 03:53 Basophils # (Manual) 0.0 K/mm3 (0.0-0.1) 09/13/17 03:53 Metamyelocytes # 0.0 K/mm3 09/13/17 03:53 Myelocytes # 0.0 K/mm3 09/13/17 03:53 Promyelocytes # 0.0 K/mm3 09/13/17 03:53 Blast Cells # 0.0 K/mm3 09/13/17 03:53 WBC Morphology Not Reportable 09/13/17 03:53 Hypersegmented Neuts Not Reportable 09/13/17 03:53 Hyposegmented Neuts Not Reportable 09/13/17 03:53 Hypogranular Neuts Not Reportable 09/13/17 03:53 Smudge Cells Not Reportable 09/13/17 03:53 Toxic Granulation Not Reportable 09/13/17 03:53 Toxic Vacuolation Not Reportable 09/13/17 03:53 Dohle Bodies Not Reportable 09/13/17 03:53 Pelger-Huet Anomaly Not Reportable 09/13/17 03:53 Lindsay Rods Not Reportable 09/13/17 03:53 Platelet Estimate Appears normal 09/13/17 03:53 Clumped Platelets Not Reportable 09/13/17 03:53 Plt Clumps, EDTA Not Reportable 09/13/17 03:53 Large Platelets Not Reportable 09/13/17 03:53 Giant Platelets Not Reportable 09/13/17 03:53 Platelet Satelliting Not Reportable 09/13/17 03:53 Plt Morphology Comment Not Reportable 09/13/17 03:53 RBC Morphology Not Reportable 09/13/17 03:53 Dimorphic RBCs Not Reportable 09/13/17 03:53 Polychromasia Not Reportable 09/13/17 03:53 Hypochromasia Not Reportable 09/13/17 03:53 Poikilocytosis Not Reportable 09/13/17 03:53 Anisocytosis 1+ 09/13/17 03:53 Microcytosis Not Reportable 09/13/17 03:53 Macrocytosis Not Reportable 09/13/17 03:53 Spherocytes Not Reportable 09/13/17 03:53 Pappenheimer Bodies Not Reportable 09/13/17 03:53 Sickle Cells Not Reportable 09/13/17 03:53 Target Cells Rare 09/13/17 03:53 Tear Drop Cells Rare 09/13/17 03:53 Ovalocytes Not Reportable 09/13/17 03:53 Stomatocytes Rare 09/13/17 03:53 Helmet Cells Not Reportable 09/13/17 03:53 [place] Bodies Not Reportable 09/13/17 03:53 [place] Rings Not Reportable 09/13/17 03:53 [place] Cells Not Reportable 09/13/17 03:53 Bite Cells Not Reportable 09/13/17 03:53 Crenated Cell Not Reportable 09/13/17 03:53 Elliptocytes Not Reportable 09/13/17 03:53 Acanthocytes (Spur) Not Reportable 09/13/17 03:53 Rouleaux Not Reportable 09/13/17 03:53 Hemoglobin C Crystals Not Reportable 09/13/17 03:53 Schistocytes Not Reportable 09/13/17 03:53 Malaria parasites Not Reportable 09/13/17 03:53 [place] Bodies Not Reportable 09/13/17 03:53 Hem Pathologist Commnt No 09/13/17 03:53 POC ABG pH 7.235 (7.35-7.45) L 09/13/17 02:40 ABG pH 7.315 pH Units (7.350-7.450) L 09/16/17 Unknown POC ABG pCO2 118.4 (35-45) H 09/13/17 02:40 ABG pCO2 101.8 mm Hg 09/16/17 Unknown POC ABG pO2 115 (80-105) H 09/13/17 02:40 ABG pO2 57.9 mm Hg (80.0-90.0) L 09/16/17 Unknown POC ABG HCO3 50.2 09/13/17 02:40 ABG HCO3 50.6 mmol/L (20.0-26.0) H 09/16/17 Unknown POC ABG Total CO2 > 50 09/13/17 02:40 POC ABG O2 Sat 97 09/13/17 02:40 ABG O2 Saturation 87.4 % (95.0-99.0) L 09/16/17 Unknown ABG O2 Content 15.5 (0.0-44) 09/16/17 Unknown POC ABG Base Excess 23 09/13/17 02:40 ABG Base Excess 19.4 mmol/L (-2.0-3.0) H 09/16/17 Unknown ABG Hemoglobin 12.9 gm/dl (12.0-16.0) 09/16/17 Unknown ABG Carboxyhemoglobin 1.5 % (0.0-5.0) 09/16/17 Unknown ABG Methemoglobin 0.5 % (0.0-1.5) 09/16/17 Unknown Oxyhemoglobin 85.6 % (95.0-99.0) L 09/16/17 Unknown FiO2 32 % 09/16/17 Unknown Sodium 143 mmol/L (137-145) 09/16/17 07:04 Potassium 4.0 mmol/L (3.6-5.0) 09/16/17 07:04 Chloride 93.2 mmol/L (98-107) L 09/16/17 07:04 Carbon Dioxide 50 mmol/L (22-30) H* D 09/16/17 07:04 Anion Gap 4 mmol/L 09/16/17 07:04 BUN 16 mg/dL (7-17) 09/16/17 07:04 Creatinine 0.3 mg/dL (0.7-1.2) L 09/16/17 07:04 Estimated GFR > 60 ml/min 09/16/17 07:04 BUN/Creatinine Ratio 53 % 09/16/17 07:04 Glucose 97 mg/dL (65-100) 09/16/17 07:04 Calcium 8.7 mg/dL (8.4-10.2) 09/16/17 07:04
== END 2017-09-17 13:47 | disposition home or self-care (01) | DRG 189 ==
LOC: ED 21:36 → 4A 09-13 02:50
PROVIDERS: ADMIT Internal Medicine; ATTEND Internal Medicine
PROC: 4A033R1 Measurement of Arterial Saturation, Peripheral, Percutaneous Approach (ICD-10-PCS; principal; 2017-09-13)
PROC: 5A09357 Assistance with Respiratory Ventilation, Less than 24 Consecutive Hours, Continuous Positive Airway Pressure (ICD-10-PCS; 2017-09-13)
PROC: 5A09357 Assistance with Respiratory Ventilation, Less than 24 Consecutive Hours, Continuous Positive Airway Pressure (ICD-10-PCS; 2017-09-14)
PROC: 5A09357 Assistance with Respiratory Ventilation, Less than 24 Consecutive Hours, Continuous Positive Airway Pressure (ICD-10-PCS; 2017-09-16)
DX: J96.22 Acute and chronic respiratory failure with hypercapnia (principal); J44.1 Chronic obstructive pulmonary disease with (acute) exacerbation; E87.2 Acidosis; J45.901 Unspecified asthma with (acute) exacerbation; J96.21 Acute and chronic respiratory failure with hypoxia; Z88.8 Allergy status to other drugs, medicaments and biological substances; Z91.010 Allergy to peanuts; Z82.49 Family history of ischemic heart disease and other diseases of the circulatory system
CPT/HCPCS: 36415; 36600; 71045; 80048; 82803; 85007; 85025; 93005; 93010; 94640; 94660; 94760; 96374; J1650; J2920; J2930; J7030

== ENCOUNTER 2017-11-24 12:02 | Inpatient (IN) | payer MEDICARE ==
[2017-11-24] MEDS ORDERED: PROVENTIL IH ONE ×2 (12:36→12:37)
--- NOTE | 2017-11-24 12:45 | Emergency Department Report ---
HPI - General Chief Complaint: Dyspnea/Respdistress Time Seen by Provider: 11/24/17 12:29 - HPI HPI: Room 26 The patient is a 62-year-old female presenting with chief complaint shortness of breath. He presents shortness breath for the past 4-5 days. The patient does admit to some back pain but denies any other forms of pain. Patient denies cough or fever. Patient complains of some pleurisy Location: Lungs, see above Duration: 4-5 days Quality: Shortness of breath Severity: Moderate Modifying factors: [see above] Context: [see above] Mode of transportation: [not driving] ED Past Medical Hx - Past Medical History Previous Medical History?: Yes Hx Asthma: Yes Hx COPD: Yes Additional medical history: hx intubation - Surgical History Past Surgical History?: Yes - Family History Family history: no significant - Social History Smoking Status: Former Smoker Substance Use Type: None (denies illicit drug use), Alcohol (occasional) - Medications Home Medications: Home Medications Medication Instructions Recorded Confirmed Last Taken Type ALBUTEROL Inhaler [ProAir HFA 2 puff IH QID PRN #1 inha 09/16/17 11/24/17 Unknown Rx Inhaler] ALBUTEROL NEB's [Proventil 0.083% 2.5 mg IH Q4HRT PRN #60 nebu 09/16/17 Unknown Rx NEBS] Arformoterol Nebu [Brovana Nebu] 15 mcg IH Q12HRT #60 ml 09/16/17 11/24/17 Unknown Rx Montelukast [Singulair] 10 mg PO QHS #30 tablet 09/16/17 11/24/17 Unknown Rx Prednisone [predniSONE 10 mg 10 mg PO .TAPER #1 tab.ds.pk 11/03/17 11/24/17 Unknown Rx (6-Day Pack, 21 Tabs)] ED Review of Systems ROS: Stated complaint: ANTHONY Other details as noted in HPI Constitutional: denies: fever Eyes: denies: eye pain ENT: denies: throat pain Respiratory: shortness of breath. denies: cough Cardiovascular: denies: chest pain Gastrointestinal: denies: abdominal pain Genitourinary: denies: dysuria Musculoskeletal: back pain Neurological: denies: headache Physical Exam - Physical Exam Physical Exam: GENERAL: The patient is well-developed well-nourished female lying on stretcher appearing lethargic/sleeping requiring physical stimulation to awaken for interview/exam. [] HEENT: Normocephalic. Atraumatic. Extraocular motions are intact. Patient has moist mucous membranes. NECK: Supple. No meningitic signs are noted. Trachea midline CHEST/LUNGS: Diminished throughout. There is no respiratory distress noted. HEART/CARDIOVASCULAR: Regular. There is no tachycardia. There is no gallop rub or murmur. ABDOMEN: Abdomen is soft, nontender. Patient has normal bowel sounds. There is no abdominal distention. SKIN: There is no rash. There is no edema. There is no diaphoresis. NEURO: The patient is slow/sleepy but awakens and becomes oriented. The patient is cooperative. The patient has normal speech MUSCULOSKELETAL: There is no evidence of acute injury. ED Course - Reevaluation(s) Reevaluation #1: 11/24/17 14:30 Patient remains lethargic despite BiPAP. Will intubate for management of CO2 narcosis - Consultations Consultation #1: 11/24/17 14:[address] Cramer. Requests Dr. Manclila be notified - Intubation Time Out Performed: No Sedative: Etomidate Mg Given: 20 Paralytic: Succinylcholine Mg Given: 100 Laryngoscope: Erlinda Size: 3 ET Tube Size: 7 Tube Secured Depth (cm): 21 Tube Secured Location: lips Tube Placement Confirmation: visualized tube passing t, equal breath sounds bilat, no breath sounds over epi, confirmation by capnometr Patient Tolerated Procedure: no complications Intubation Complications: none ED Medical Decision Making - Lab Data Result diagrams: 11/24/17 12:41 11/24/17 12:41 Laboratory Tests 11/24/17 11/24/17 11/24/17 12:41 12:41 12:41 WBC 3.5 L RBC 4.03 Hgb 13.4 Hct 43.4 H MCV 108 H MCH 33 H MCHC 31 RDW 14.4 Plt Count 263 Add Manual Diff Complete Total Counted 100 Seg Neuts % (Manual) 41.0 Band Neutrophils % 23.0 Lymphocytes % (Manual) 24.0 Reactive Lymphs % (Man) 0 Monocytes % (Manual) 10.0 H Eosinophils % (Manual) 0 Basophils % (Manual) 0 Metamyelocytes % 2.0 Myelocytes % 0 Promyelocytes % 0 Blast Cells % 0 Nucleated RBC % 7.0 H Seg Neutrophils # Man 1.4 L Band Neutrophils # 0.8 Lymphocytes # (Manual) 0.8 L Abs React Lymphs (Man) 0.0 Monocytes # (Manual) 0.4 Eosinophils # (Manual) 0.0 Basophils # (Manual) 0.0 Metamyelocytes # 0.1 Myelocytes # 0.0 Promyelocytes # 0.0 Blast Cells # 0.0 WBC Morphology Not Reportable Hypersegmented Neuts Not Reportable Hyposegmented Neuts Not Reportable Hypogranular Neuts Not Reportable Smudge Cells Not Reportable Toxic Granulation Not Reportable Toxic Vacuolation Not Reportable Dohle Bodies Not Reportable Pelger-Huet Anomaly Not Reportable Lindsay Rods Not Reportable Platelet Estimate Consistent w auto Clumped Platelets Not Reportable Plt Clumps, EDTA Not Reportable Large Platelets Not Reportable Giant Platelets Few Platelet Satelliting Not Reportable Plt Morphology Comment Not Reportable RBC Morphology Not Reportable Dimorphic RBCs Not Reportable Polychromasia Not Reportable Hypochromasia 1+ Poikilocytosis Not Reportable Anisocytosis 1+ Microcytosis Not Reportable Macrocytosis 1+ Spherocytes Not Reportable Pappenheimer Bodies Not Reportable Sickle Cells Not Reportable Target Cells Not Reportable Tear Drop Cells Not Reportable Ovalocytes Not Reportable Helmet Cells Not Reportable Beltran-Deale Bodies Not Reportable [place] Rings Not Reportable [place] Cells Not Reportable Bite Cells Not Reportable Crenated Cell Not Reportable Elliptocytes Not Reportable Acanthocytes (Spur) Not Reportable Rouleaux Not Reportable Hemoglobin C Crystals Not Reportable Schistocytes Not Reportable Malaria parasites Not Reportable Emerson Bodies Not Reportable Hem Pathologist Commnt No D-Dimer 207.14 POC ABG pH POC ABG pCO2 POC ABG pO2 FiO2 Sodium 145 Potassium 3.5 L Chloride 93.5 L Carbon Dioxide 46 H* Anion Gap 9 BUN 17 Creatinine 0.3 L Estimated GFR > 60 BUN/Creatinine Ratio 57 Glucose 98 Calcium 9.6 Total Creatine Kinase CK-MB (CK-2) CK-MB (CK-2) Rel Index Troponin T < 0.010 NT-Pro-B Natriuret Pep 11/24/17 11/24/17 12:41 12:57 WBC RBC Hgb Hct MCV MCH MCHC RDW Plt Count Add Manual Diff Total Counted Seg Neuts % (Manual) Band Neutrophils % Lymphocytes % (Manual) Reactive Lymphs % (Man) Monocytes % (Manual) Eosinophils % (Manual) Basophils % (Manual) Metamyelocytes % Myelocytes % Promyelocytes % Blast Cells % Nucleated RBC % Seg Neutrophils # Man Band Neutrophils # Lymphocytes # (Manual) Abs React Lymphs (Man) Monocytes # (Manual) Eosinophils # (Manual) Basophils # (Manual) Metamyelocytes # Myelocytes # Promyelocytes # Blast Cells # WBC Morphology Hypersegmented Neuts Hyposegmented Neuts Hypogranular Neuts Smudge Cells Toxic Granulation Toxic Vacuolation Dohle Bodies Pelger-Huet Anomaly Lindsay Rods Platelet Estimate Clumped Platelets Plt Clumps, EDTA Large Platelets Giant Platelets Platelet Satelliting Plt Morphology Comment RBC Morphology Dimorphic RBCs Polychromasia Hypochromasia Poikilocytosis Anisocytosis Microcytosis Macrocytosis Spherocytes Pappenheimer Bodies Sickle Cells Target Cells Tear Drop Cells Ovalocytes Helmet Cells Beltran-Deale Bodies [place] Rings [place] Cells Bite Cells Crenated Cell Elliptocytes Acanthocytes (Spur) Rouleaux Hemoglobin C Crystals Schistocytes Malaria parasites Emerson Bodies Hem Pathologist Commnt D-Dimer POC ABG pH 7.154 L POC ABG pCO2 > 130.0 H POC ABG pO2 62 L FiO2 32 Sodium Potassium Chloride Carbon Dioxide Anion Gap BUN Creatinine Estimated GFR BUN/Creatinine Ratio Glucose Calcium Total Creatine Kinase 33 CK-MB (CK-2) 4.2 H CK-MB (CK-2) Rel Index 12.7 H Troponin T < 0.010 NT-Pro-B Natriuret Pep 4859 H - EKG Data -: EKG Interpreted by Me EKG shows normal: sinus rhythm Rate: normal - EKG Data When compared to previous EKG there are: no significant change Interpretation: unchanged when compared t (10/30/2017) - Radiology Data Radiology results: report reviewed (chest x-ray #2), image reviewed (chest x- ray #1, chest x-ray #2) interpreted by me: Chest x-ray #1- right lower lobe consolidation Chest x-ray #2-ET tube in appropriate position. Right lower lobe consolidation - Differential Diagnosis asthma exacerbation, pneumonia, PE, CHF Critical care attestation.: If time is entered above; I have spent that time in minutes in the direct care of this critically ill patient, excluding procedure time. ED Disposition Clinical Impression: Shortness of breath, Pneumonia, Respiratory failure, CO2 narcosis Disposition: OP ADMIT IP TO THIS HOSP Is pt being admited?: Yes Does the pt Need Aspirin: Yes Condition: Serious Instructions: Bacterial Pneumonia (ED) Referrals: PRIMARY CARE, [Primary Care Provider] - 3-5 Days Time of Disposition: 15:04 (hospitalist notified (Dr Dang))
[2017-11-24 13:30] LABS: Mean Corpuscular HGB Conc 31 % (30-34); Mean Corpuscular Hemoglobin 33 pg (28-32); Mean Corpuscular Volume 108 fl (79-97); Platelet Count 263 K/mm3 (140-440); Red Blood Count 4.03 M/mm3 (3.65-5.03); Red Cell Distribution Width 14.4 % (13.2-15.2)
[2017-11-24 13:31] LABS: Hematocrit 43.4 % (30.3-42.9); Hemoglobin 13.4 gm/dl (10.1-14.3)
[2017-11-24 13:45] LABS: BUN/Creatinine Ratio 57; Blood Urea Nitrogen 17 mg/dL (7-17); Calcium 9.6 mg/dL (8.4-10.2); Hemolysis Index 2
[2017-11-24 13:47] LABS: Creatine Kinase MB 4.2 ng/mL (0.0-4.0)
[2017-11-24] MEDS ORDERED: ZOSYN/NS 4.5GM/100ML 4.5 GM/100 ML VIAL IV ONE (14:33)
[2017-11-24 14:58] LABS: Anisocytosis 1+; Band Neutrophils # (Manual) 0.8 K/mm3; Basophils % (Manual) 0 % (0.0-1.8); Eosinophils % (Manual) 0 % (0.0-4.3); Giant Platelets Few; Hypochromasia 1+; Macrocytosis 1+; Total Cells Counted 100
[2017-11-24 14:59] LABS: Platelet Estimate Consistent w Auto
[2017-11-24] MEDS ORDERED: ARTIFICIAL TEARS OPHTH OINT OU PRN (15:17)
[2017-11-24] MEDS ORDERED: VASELINE LIP THERAPY TP PRN (15:17)
--- NOTE | 2017-11-24 15:33 | XRay Report ---
PORTABLE CHEST INDICATION: Shortness of breath. COMPARISON: 10/29/2017 FINDINGS: Portable, frontal chest radiograph now demonstrates new/increased bilateral interstitial pneumonias, right more than left and greatest at the bases. Accompanying consolidation/small pleural effusion also suspected, right more than left. No cephalization. Normal cardiomediastinal silhouette. EKG leads. Few extrinsic artifacts. Stable bones. CONCLUSION: Bilateral pneumonias and possible pleural fluid, right more than left and greatest towards the bases, representing worsening since October 2017, as described. Please correlate. Thank you for the opportunity to participate in this patient's care.
--- NOTE | 2017-11-24 15:55 | XRay Report ---
FINAL REPORT EXAM: XR CHEST 1V AP HISTORY: ETT placement COMPARISON: Chest radiograph performed on 10/29/2017 TECHNIQUE: Single frontal view of the chest FINDINGS: Endotracheal tube with tip in the midtrachea. Enteric tube with tip in the stomach. The cardiomediastinal silhouette is normal in appearance. Increasing patchy opacities in the right lower lobe. The right lung base is not fully imaged. No acute bony or soft tissue abnormality. IMPRESSION: Increasing patchy opacities in the right lower lobe, concerning for worsening infection. Endotracheal tube with tip in the midtrachea.
[2017-11-24 15:56] LABS: Bacteria,Urine 1+ /HPF (Negative); Bilirubin,Urine NEG (Negative); Blood,Urine SM (Negative); Color,Urine Yellow (Yellow); Mucus,Urine FEW /HPF; Urobilinogen,Urine < 2.0 mg/dL (<2.0)
[2017-11-24] MEDS ORDERED: MIDAZOLAM 100 MG in NACL 0.9% 80 ML IV SCH (16:00)
[2017-11-24] MEDS ORDERED: NACL 0.9% 500 ML IV SCH (16:00)
[2017-11-24] MEDS ORDERED: HABITROL TD ONE (16:07)
[2017-11-24] MEDS ORDERED: SODIUM CHLORIDE FLUSH SYRINGE 10 ML IV PRN (16:16)
[2017-11-24] MEDS ORDERED: ZOFRAN IV PRN (16:16)
[2017-11-24] MEDS ORDERED: MORPHINE IV PRN (16:16)
--- NOTE | 2017-11-24 16:16 | History and Physical Report ---
History of Present Illness Date of examination: 11/24/17 Medications and Allergies Allergies Allergy/AdvReac Type Severity Reaction Status Date / Time peanut Allergy Angioedema Verified 07/23/16 00:17 ipratropium bromide AdvReac Shortness Verified 09/11/13 07:39 [From Atrovent] of Breath Home Medications Medication Instructions Recorded Confirmed Last Taken Type ALBUTEROL Inhaler [ProAir HFA 2 puff IH QID PRN #1 inha 09/16/17 11/24/17 Unknown Rx Inhaler] ALBUTEROL NEB's [Proventil 0.083% 2.5 mg IH Q4HRT PRN #60 nebu 09/16/17 Unknown Rx NEBS] Arformoterol Nebu [Brovana Nebu] 15 mcg IH Q12HRT #60 ml 09/16/17 11/24/17 Unknown Rx Montelukast [Singulair] 10 mg PO QHS #30 tablet 09/16/17 11/24/17 Unknown Rx Prednisone [predniSONE 10 mg 10 mg PO .TAPER #1 tab.ds.pk 11/03/17 11/24/17 Unknown Rx (6-Day Pack, 21 Tabs)] Active Meds: Active Medications Hydrophilic Ointment (Vaseline Lip Therapy) 1 applic TP Q2HR PRN PRN Reason: Dry Lips Midazolam HCl 100 mg/ Sodium (Chloride) 100 mls @ 2 mls/hr IV TITR SEBASTIAN; Protocol Multi-Ingred Cream/Lotion/Oil/Oint (Artificial Tears Ophth Oint) 1 applic OU Q4HR PRN PRN Reason: Dry Eye(s) Sodium Chloride (Nacl 0.9% 500 Ml) 1 ml IV DIRECT SEBASTIAN Exam - Constitutional Vitals: Temp Pulse Resp BP Pulse Ox 100 H 22 108/62 93 11/24/17 14:04 11/24/17 14:04 11/24/17 14:04 11/24/17 14:04 Results - Labs CBC & Chem 7: 11/24/17 12:41 11/24/17 12:41 Labs: Laboratory Last Values WBC 3.5 K/mm3 (4.5-11.0) L 11/24/17 12:41 RBC 4.03 M/mm3 (3.65-5.03) 11/24/17 12:41 Hgb 13.4 gm/dl (10.1-14.3) 11/24/17 12:41 Hct 43.4 % (30.3-42.9) H 11/24/17 12:41 MCV 108 fl (79-97) H 11/24/17 12:41 MCH 33 pg (28-32) H 11/24/17 12:41 MCHC 31 % (30-34) 11/24/17 12:41 RDW 14.4 % (13.2-15.2) 11/24/17 12:41 Plt Count 263 K/mm3 (140-440) 11/24/17 12:41 Add Manual Diff Complete 11/24/17 12:41 Total Counted 100 11/24/17 12:41 Seg Neuts % (Manual) 41.0 % (40.0-70.0) 11/24/17 12:41 Band Neutrophils % 23.0 % 11/24/17 12:41 Lymphocytes % (Manual) 24.0 % (13.4-35.0) 11/24/17 12:41 Reactive Lymphs % (Man) 0 % 11/24/17 12:41 Monocytes % (Manual) 10.0 % (0.0-7.3) H 11/24/17 12:41 Eosinophils % (Manual) 0 % (0.0-4.3) 11/24/17 12:41 Basophils % (Manual) 0 % (0.0-1.8) 11/24/17 12:41 Metamyelocytes % 2.0 % 11/24/17 12:41 Myelocytes % 0 % 11/24/17 12:41 Promyelocytes % 0 % 11/24/17 12:41 Blast Cells % 0 % 11/24/17 12:41 Nucleated RBC % 7.0 % (0.0-0.9) H 11/24/17 12:41 Seg Neutrophils # Man 1.4 K/mm3 (1.8-7.7) L 11/24/17 12:41 Band Neutrophils # 0.8 K/mm3 11/24/17 12:41 Lymphocytes # (Manual) 0.8 K/mm3 (1.2-5.4) L 11/24/17 12:41 Abs React Lymphs (Man) 0.0 K/mm3 11/24/17 12:41 Monocytes # (Manual) 0.4 K/mm3 (0.0-0.8) 11/24/17 12:41 Eosinophils # (Manual) 0.0 K/mm3 (0.0-0.4) 11/24/17 12:41 Basophils # (Manual) 0.0 K/mm3 (0.0-0.1) 11/24/17 12:41 Metamyelocytes # 0.1 K/mm3 11/24/17 12:41 Myelocytes # 0.0 K/mm3 11/24/17 12:41 Promyelocytes # 0.0 K/mm3 11/24/17 12:41 Blast Cells # 0.0 K/mm3 11/24/17 12:41 WBC Morphology Not Reportable 11/24/17 12:41 Hypersegmented Neuts Not Reportable 11/24/17 12:41 Hyposegmented Neuts Not Reportable 11/24/17 12:41 Hypogranular Neuts Not Reportable 11/24/17 12:41 Smudge Cells Not Reportable 11/24/17 12:41 Toxic Granulation Not Reportable 11/24/17 12:41 Toxic Vacuolation Not Reportable 11/24/17 12:41 Dohle Bodies Not Reportable 11/24/17 12:41 Pelger-Huet Anomaly Not Reportable 11/24/17 12:41 Lindsay Rods Not Reportable 11/24/17 12:41 Platelet Estimate Consistent w auto 11/24/17 12:41 Clumped Platelets Not Reportable 11/24/17 12:41 Plt Clumps, EDTA Not Reportable 11/24/17 12:41 Large Platelets Not Reportable 11/24/17 12:41 Giant Platelets Few 11/24/17 12:41 Platelet Satelliting Not Reportable 11/24/17 12:41 Plt Morphology Comment Not Reportable 11/24/17 12:41 RBC Morphology Not Reportable 11/24/17 12:41 Dimorphic RBCs Not Reportable 11/24/17 12:41 Polychromasia Not Reportable 11/24/17 12:41 Hypochromasia 1+ 11/24/17 12:41 Poikilocytosis Not Reportable 11/24/17 12:41 Anisocytosis 1+ 11/24/17 12:41 Microcytosis Not Reportable 11/24/17 12:41 Macrocytosis 1+ 11/24/17 12:41 Spherocytes Not Reportable 11/24/17 12:41 Pappenheimer Bodies Not Reportable 11/24/17 12:41 Sickle Cells Not Reportable 11/24/17 12:41 Target Cells Not Reportable 11/24/17 12:41 Tear Drop Cells Not Reportable 11/24/17 12:41 Ovalocytes Not Reportable 11/24/17 12:41 Helmet Cells Not Reportable 11/24/17 12:41 Beltran-Pulcifer Bodies Not Reportable 11/24/17 12:41 [place] Rings Not Reportable 11/24/17 12:41 Energy Cells Not Reportable 11/24/17 12:41 Bite Cells Not Reportable 11/24/17 12:41 Crenated Cell Not Reportable 11/24/17 12:41 Elliptocytes Not Reportable 11/24/17 12:41 Acanthocytes (Spur) Not Reportable 11/24/17 12:41 Rouleaux Not Reportable 11/24/17 12:41 Hemoglobin C Crystals Not Reportable 11/24/17 12:41 Schistocytes Not Reportable 11/24/17 12:41 Malaria parasites Not Reportable 11/24/17 12:41 Emerson Bodies Not Reportable 11/24/17 12:41 Hem Pathologist Commnt No 11/24/17 12:41 D-Dimer 207.14 ng/mlDDU (0-234) 11/24/17 12:41 POC ABG pH 7.154 (7.35-7.45) L 11/24/17 12:57 POC ABG pCO2 > 130.0 (35-45) H 11/24/17 12:57 POC ABG pO2 62 (80-105) L 11/24/17 12:57 FiO2 32 % 11/24/17 12:57 Sodium 145 mmol/L (137-145) 11/24/17 12:41 Potassium 3.5 mmol/L (3.6-5.0) L 11/24/17 12:41 Chloride 93.5 mmol/L (98-107) L 11/24/17 12:41 Carbon Dioxide 46 mmol/L (22-30) H* 11/24/17 12:41 Anion Gap 9 mmol/L 11/24/17 12:41 BUN 17 mg/dL (7-17) 11/24/17 12:41 Creatinine 0.3 mg/dL (0.7-1.2) L 11/24/17 12:41 Estimated GFR > 60 ml/min 11/24/17 12:41 BUN/Creatinine Ratio 57 % 11/24/17 12:41 Glucose 98 mg/dL (65-100) 11/24/17 12:41 Calcium 9.6 mg/dL (8.4-10.2) 11/24/17 12:41 Total Creatine Kinase 33 units/L (30-135) 11/24/17 12:41 CK-MB (CK-2) 4.2 ng/mL (0.0-4.0) H 11/24/17 12:41 CK-MB (CK-2) Rel Index 12.7 (0-4) H 11/24/17 12:41 Troponin T < 0.010 ng/mL (0.00-0.029) 11/24/17 12:41 NT-Pro-B Natriuret Pep 4859 pg/mL (0-900) H 11/24/17 12:41 Urine Color Yellow (Yellow) 11/24/17 Unknown Urine Turbidity Clear (Clear) 11/24/17 Unknown Urine pH 5.0 (5.0-7.0) 11/24/17 Unknown Ur Specific [place] 1.017 (1.003-1.030) 11/24/17 Unknown Urine Protein 100 mg/dl mg/dL (Negative) 11/24/17 Unknown Urine Glucose (UA) Neg mg/dL (Negative) 11/24/17 Unknown Urine Ketones Tr mg/dL (Negative) 11/24/17 Unknown Urine Blood Sm (Negative) 11/24/17 Unknown Urine Nitrite Neg (Negative) 11/24/17 Unknown Urine Bilirubin Neg (Negative) 11/24/17 Unknown Urine Urobilinogen < 2.0 mg/dL (<2.0) 11/24/17 Unknown Ur Leukocyte Esterase Neg (Negative) 11/24/17 Unknown Urine WBC (Auto) 4.0 /HPF (0.0-6.0) 11/24/17 Unknown Urine RBC (Auto) 15.0 /HPF (0.0-6.0) 11/24/17 Unknown Urine Bacteria (Auto) 1+ /HPF (Negative) 11/24/17 Unknown Urine Mucus Few /HPF 11/24/17 Unknown
[2017-11-24] MEDS ORDERED: VANCOMYCIN PHARMACY TO DOSE IV SCH (17:00)
[2017-11-24] MEDS ORDERED: D5NS 1,000 ML IV SCH (17:00)
[2017-11-24] MEDS ORDERED: VANCOMYCIN/NS 1 GM/250 ML 1 GM/250 ML BAG IV ONE (18:00)
[2017-11-24] MEDS: LOVENOX SUB-Q SCH (18:52)
[2017-11-24] MEDS: ZOSYN/NS 4.5GM/100ML 4.5 GM/100 ML VIAL IV SCH ×2 (18:53→21:23)
[2017-11-24] MEDS: DUONEB *Not for PRN Use IH SCH (20:53)
[2017-11-24] MEDS: PEPCID IV SCH (21:09)
[2017-11-25] MEDS ORDERED: DUONEB *Not for PRN Use IH (00:47)
--- NOTE | 2017-11-25 00:50 | Event Note ---
Date: 11/24/17 Please see dictated history and physical in the reports
--- NOTE | 2017-11-25 01:03 | History and Physical Report ---
CHIEF COMPLAINT: Severe respiratory distress for the past 4-5 days. HISTORY OF PRESENT ILLNESS: The patient is a 62-year-old female with known COPD who comes in for increasing shortness of breath for the past 4-5 days, worsening today. Cough productive of sputum. Very short of breath. No exacerbating or relieving factors. The patient becoming lethargic. PAST MEDICAL HISTORY: Significant for asthma, COPD, previous history of intubation. PAST SURGICAL HISTORY: Unavailable. FAMILY HISTORY: Unavailable. SOCIAL HISTORY: Smoker until recently. No substance abuse, alcohol occasionally. CURRENT MEDICATIONS: Albuterol and Brovana inhaler and Singulair and prednisone. REVIEW OF SYSTEMS: Significant for increasing shortness of breath, cough productive of yellow mucoid sputum. No fever, no chills. Otherwise, 14-point review of systems negative. Becoming lethargic. PHYSICAL EXAMINATION: GENERAL: Elderly female, looks older than age. VITAL SIGNS: Blood pressure is 114/69, temperature is 98, pulse is 119, respirations are 20, sats are 98 after intubation. HEENT: Unremarkable. ET tube in place. NECK: Supple. Accessory muscles of respiration are prominent. LUNGS: Bilateral inspiratory and expiratory rhonchi present. Diminished air entry. CARDIOVASCULAR: S1, S2 heard. No gallop, no murmur, no rub. Apical impulse in left fifth intercostal space and midclavicular line. ABDOMEN: Soft and benign. No hepatosplenomegaly. No guarding, no rigidity. Hernial orifices are normal. EXTREMITIES: Good pedal pulses. No pedal edema. CENTRAL NERVOUS SYSTEM: Lethargic. LABORATORY DATA: White count is 3500, hemoglobin is 13.4 and 43.4, platelet count is 263,000. ABG significant for pH of 7.154, pCO2 of 130, pO2 of 62, FiO2 of 132. Bicarb on BMP is 46. The sodium is 145, potassium is 3.5, chloride is 93.5. CK-MB is 12.7. Troponin is less than 0.010. BNP is 4859. RADIOLOGICAL DATA: Chest x-ray shows bilateral infiltrates. Bilateral pneumonia and pleural fluid, right more than left, angulated towards the bases. ASSESSMENT AND PLAN: 1. Acute respiratory failure with hypercarbia. The patient intubated in the Emergency Room. The patient to get vent management, DuoNebs around the clock and q. 3 hours p.r.n. and also IV Solu-Medrol and IV Zosyn and vancomycin. 2. Chronic obstructive pulmonary disease exacerbation. The patient to get IV Solu-Medrol, IV Zosyn, vancomycin, and DuoNeb around the clock and p.r.n. Critical care consult requested. 3. Congestive heart failure. Echocardiogram ordered. 4. Deep venous thrombosis prophylaxis, heparin 5000 subq q.12h. Prognosis is fair to guarded. JOB# [id number] VSM/NTS
--- NOTE | 2017-11-25 02:00 | XRay Report ---
FINAL REPORT EXAM: XR CHEST 1V AP HISTORY: follow up respiratory failure COMPARISON: November 24, 2017. FINDINGS: Frontal view(s) of the chest obtained. Heart upper limits normal in size. ETT and NG tube are grossly unchanged in position. Stable patchy nodular airspace opacity right mid to lower lung medial left lung base. Small nodular opacity at the lateral margin right upper lung is also unchanged. No pneumothorax. There may be a trace right-sided pleural effusion. IMPRESSION: ETT and NG tube are grossly unchanged in position. Stable patchy airspace opacities concerning for pneumonia most pronounced at the right lung base.
[2017-11-25 05:44] LABS: Hemoglobin 11.9 gm/dl (10.1-14.3); Mean Corpuscular HGB Conc 31 % (30-34); Mean Corpuscular Hemoglobin 33 pg (28-32); Mean Corpuscular Volume 105 fl (79-97); Platelet Count 264 K/mm3 (140-440); Red Blood Count 3.61 M/mm3 (3.65-5.03); Red Cell Distribution Width 14.1 % (13.2-15.2)
[2017-11-25] MEDS: VANCOMYCIN 750 MG in NACL 0.9% 250ML 250 ML IV SCH ×2 (05:53→17:28)
[2017-11-25] MEDS: ZOSYN/NS 4.5GM/100ML 4.5 GM/100 ML VIAL IV SCH ×3 (05:53→22:27)
[2017-11-25 06:04] LABS: Alanine Aminotransferase 13 units/L (7-56); Albumin 2.7 g/dL (3.9-5); BUN/Creatinine Ratio 38; Blood Urea Nitrogen 19 mg/dL (7-17); Calcium 9.1 mg/dL (8.4-10.2); Hemolysis Index 3
[2017-11-25 07:23] LABS: Total Cells Counted 100
[2017-11-25 07:24] LABS: Anisocytosis 1+; Band Neutrophils # (Manual) 3.3 K/mm3; Basophils % (Manual) 0 % (0.0-1.8); Dohle Bodies Few; Eosinophils % (Manual) 0 % (0.0-4.3); Hypochromasia 1+; Large Platelets Few; Stomatocytes 1+
[2017-11-25] MEDS: DUONEB *Not for PRN Use IH SCH ×5 (08:46→19:52)
[2017-11-25] MEDS: PEPCID IV SCH ×2 (11:02→22:32)
[2017-11-25] MEDS: LOVENOX SUB-Q SCH (11:02)
[2017-11-25] MEDS: SODIUM CHLORIDE FLUSH SYRINGE 10 ML IV SCH (11:05)
--- NOTE | 2017-11-25 11:15 | Consultation ---
History of Present Illness Consult date: 11/25/17 Requesting physician: MINNIE PERRY Reason for consult: asthma, other (hypercapnic respiratory failure) History of present illness: 62 y/o female with known obstructive lung disease, recently admitted in October with similiar presentation, presented to ED with hypercapnic respiratory failure. Per ED, failed bipap therapy and was electively intubated. Started on Versed Drip and then transitioned to ICU. Versed drip currently off, patient not awake but appears to be becoming more arousable. ABG this am showed respiratory acidosis secondary to over ventilation. Patient was started on IV abx as well as IV steroids. CXR shows bilateral patchy airspace disease, with the worst area being in the right lower lobe. Past History Past Medical History: other (asthma) Past Surgical History: Other (unable to obtain secondary to mental state) Social history: other (unable to obtain secondary to mental state) Family history: other (unable to obtain secondary to mental state) Medications and Allergies Allergies Allergy/AdvReac Type Severity Reaction Status Date / Time peanut Allergy Angioedema Verified 07/23/16 00:17 ipratropium bromide AdvReac Shortness Verified 09/11/13 07:39 [From Atrovent] of Breath Home Medications Medication Instructions Recorded Confirmed Last Taken Type ALBUTEROL Inhaler [ProAir HFA 2 puff IH QID PRN #1 inha 09/16/17 11/24/17 Unknown Rx Inhaler] ALBUTEROL NEB's [Proventil 0.083% 2.5 mg IH Q4HRT PRN #60 nebu 09/16/17 Unknown Rx NEBS] Arformoterol Nebu [Brovana Nebu] 15 mcg IH Q12HRT #60 ml 09/16/17 11/24/17 Unknown Rx Montelukast [Singulair] 10 mg PO QHS #30 tablet 09/16/17 11/24/17 Unknown Rx Prednisone [predniSONE 10 mg 10 mg PO .TAPER #1 tab.ds.pk 11/03/17 11/24/17 Unknown Rx (6-Day Pack, 21 Tabs)] Active Meds: Active Medications Acetaminophen (Tylenol) 650 mg PO Q4H PRN PRN Reason: Pain MILD(1-3)/Fever >100.5/PÉREZ Albuterol/Ipratropium (Duoneb *Not For Prn Use*) 1 ampul IH QIDRT [facility] Last Admin: 11/25/17 08:46 Dose: 1 ampul Albuterol/Ipratropium (Duoneb *Not For Prn Use*) 1 ampul IH Q3H PRN PRN Reason: Wheezing Enoxaparin Sodium (Lovenox) 40 mg SUB-Q QDAY [facility] Last Admin: 11/25/17 11:02 Dose: 40 mg Famotidine (Pepcid) 20 mg IV BID [facility] Last Admin: 11/25/17 11:02 Dose: 20 mg Furosemide (Lasix) 20 mg IV ONCE ONE Stop: 11/25/17 11:10 Hydrophilic Ointment (Vaseline Lip Therapy) 1 applic TP Q2HR PRN PRN Reason: Dry Lips Piperacillin Sod/Tazobactam Sod (Zosyn/Ns 4.5gm/100ml) 4.5 gm in 100 mls @ 200 mls/hr IV Q8HR [facility]; Protocol Last Admin: 11/25/17 05:53 Dose: 100 mls/hr Vancomycin HCl 750 mg/ Sodium (Chloride) 257.5 mls @ 166.667 mls/hr IV Q12H [facility] Last Admin: 11/25/17 05:53 Dose: 166.667 mls/hr Methylprednisolone Sodium Succinate (Solu-Medrol) 60 mg IV Q6HR [facility] Morphine Sulfate (Morphine) 2 mg IV Q4H PRN PRN Reason: Pain, Moderate (4-6) Multi-Ingred Cream/Lotion/Oil/Oint (Artificial Tears Ophth Oint) 1 applic OU Q4HR PRN PRN Reason: Dry Eye(s) Ondansetron HCl (Zofran) 4 mg IV Q8H PRN PRN Reason: Nausea And Vomiting Sodium Chloride (Nacl 0.9% 500 Ml) 1 ml IV DIRECT [facility] Sodium Chloride (Sodium Chloride Flush Syringe 10 Ml) 10 ml IV BID [facility] Last Admin: 11/25/17 11:05 Dose: 10 ml Sodium Chloride (Sodium Chloride Flush Syringe 10 Ml) 10 ml IV PRN PRN PRN Reason: LINE FLUSH Vancomycin HCl (Vancomycin Pharmacy To Dose) 1 each IV PKCONSULT [facility]; Protocol Review of Systems ROS unobtainable: due to endotracheal tube, due to mental status Physical Examination Vital signs: Vital Signs Pulse Resp 92 H 34 H 11/24/17 12:40 11/24/17 12:40 General appearance: comatose (secondary to drugs) Eyes: non-icteric ENT: other (orally intubated and sedated) Neck: supple Effort: normal Ascultation: Bilateral: diminished breath sounds Percussion: Bilateral: not dull Cardiovascular: regular rate and rhythm Gastrointestinal: normoactive bowel sounds, soft, non-tender Extremities: no edema Musculoskeletal: no deformities unable to assess Results - Laboratory Findings CBC and BMP: 11/25/17 04:59 11/25/17 04:59 ABG POC ABG pH 7.522 (7.35-7.45) H 11/25/17 04:54 POC ABG pCO2 59.3 (35-45) H 11/25/17 04:54 POC ABG pO2 82 (80-105) 11/25/17 04:54 POC ABG HCO3 48.6 11/25/17 04:54 POC ABG Total CO2 > 50 11/25/17 04:54 POC ABG O2 Sat 97 11/25/17 04:54 PT/INR, D-dimer D-Dimer 207.14 ng/mlDDU (0-234) 11/24/17 12:41 Abnormal lab findings: Abnormal Labs 11/24/17 11/24/17 11/24/17 12:41 12:41 12:41 WBC 3.5 L RBC Hct 43.4 H MCV 108 H MCH 33 H Seg Neuts % (Manual) Lymphocytes % (Manual) Monocytes % (Manual) 10.0 H Nucleated RBC % 7.0 H Seg Neutrophils # Man 1.4 L Lymphocytes # (Manual) 0.8 L POC ABG pH POC ABG pCO2 POC ABG pO2 Sodium Potassium 3.5 L Chloride 93.5 L Carbon Dioxide 46 H* BUN Creatinine 0.3 L Glucose CK-MB (CK-2) 4.2 H CK-MB (CK-2) Rel Index 12.7 H NT-Pro-B Natriuret Pep 4859 H Total Protein Albumin 11/24/17 11/24/17 11/24/17 12:57 16:38 16:50 WBC RBC Hct MCV MCH Seg Neuts % (Manual) Lymphocytes % (Manual) Monocytes % (Manual) Nucleated RBC % Seg Neutrophils # Man Lymphocytes # (Manual) POC ABG pH 7.154 L 7.478 H 7.492 H POC ABG pCO2 > 130.0 H 70.6 H 67.6 H POC ABG pO2 62 L 50 L 50 L Sodium Potassium Chloride Carbon Dioxide BUN Creatinine Glucose CK-MB (CK-2) CK-MB (CK-2) Rel Index NT-Pro-B Natriuret Pep Total Protein Albumin 11/25/17 11/25/17 11/25/17 04:54 04:59 04:59 WBC RBC 3.61 L Hct MCV 105 H MCH 33 H Seg Neuts % (Manual) 39.0 L Lymphocytes % (Manual) 7.0 L Monocytes % (Manual) Nucleated RBC % 10.0 H Seg Neutrophils # Man Lymphocytes # (Manual) 0.5 L POC ABG pH 7.522 H POC ABG pCO2 59.3 H POC ABG pO2 Sodium 148 H Potassium Chloride 97.5 L Carbon Dioxide 42 H* BUN 19 H Creatinine 0.5 L D Glucose 126 H CK-MB (CK-2) CK-MB (CK-2) Rel Index NT-Pro-B Natriuret Pep Total Protein 4.7 L Albumin 2.7 L - Diagnostic Findings Chest x-ray: image reviewed Assessment and Plan 62 y/o female with hypercapnic respiratory failure, possible right lower lobe pneumonia and possible volume overload. 1. Agree with broad spec abx therapy. Follow up on Sputum culture 2. Changed steroids to 60q6. Will continue scheduled short acting nebs 3. Will give a one time dose of lasix today 4. No sedatives at all 5. Hope to wake patient up and extubate today. CCt 31 minutes.
[2017-11-25] MEDS ORDERED: VERSED IV ONE (11:52)
[2017-11-25] MEDS ORDERED: LASIX IV ONE (12:00)
--- NOTE | 2017-11-25 16:13 | Progress Note ---
Assessment and Plan Assessment and plan: Ms. Torres is a 62 yo woman with history of chronic respiratory failure on home o2 due to end stage COPD and who still smokes cigarettes pw SOB. She was recently admitted in October with similar presentation. She failed bipap therapy per ED report and was electively intubated. pCXR reported as Bilateral pneumonias and possible pleural fluid, right more than left and greatest towards the bases, representing worsening since October 2017 , as described. -Acute on chronc hypercapneic respiratory failure: trying to wean off mv, pulm is following -Acute bilateral Aspiration pneumonitis with sepsis, poa: IV abx, follow up sputum ctx and blood cultures -AE COPD: iv steroids, neb, iv abx -Suspect acute diastolic heart failure: Echo and treat with iv lasix, repeat cxr -Severe malnutrition, poa: consult Personnel Counselor History Interval history: Patient was seen and examined. Follow-up on current diagnosis. Overnight uneventful. Patient denies any chest pain, shortness breath, nausea/vomiting or severe headaches. Imaging, nursing note, chart, labs and old chart reviewed. Discussed with patient. Hospitalist Physical - Physical exam Narrative exam: GEN: cachetic, ill appearing intubated on versed HEENT: NCAT, EOMI, PERRL, OP ETT in place NECK: supple, no adenopathy, no thyromegaly, no JVD CVS/HEART: Regular tachycardia, normal S1S2, pulses present bilaterally CHEST/LUNGS: bibasilar crackles, Symmetrical chest expansion, good air entry bilaterally GI/Abdomen: soft, NTND, good bowel sounds, no guarding or rebound /Bladder: no suprapubic tenderness, no CVA or paraspinal tenderness EXT/Skin: no c/c/e, no obvious rash MSK: +spontaneous movement Neuro: CN 2-12 grossly intact,sedated Psych: sedated - Constitutional Vitals: Temp Pulse Resp BP Pulse Ox 98.9 F 119 H 16 157/89 95 11/25/17 12:00 11/25/17 15:00 11/25/17 15:00 11/25/17 15:00 11/25/17 15:00 Results - Labs CBC & Chem 7: 11/25/17 04:59 11/25/17 04:59 Labs: Laboratory Last Values WBC 7.4 K/mm3 (4.5-11.0) 11/25/17 04:59 RBC 3.61 M/mm3 (3.65-5.03) L 11/25/17 04:59 Hgb 11.9 gm/dl (10.1-14.3) 11/25/17 04:59 Hct 38.0 % (30.3-42.9) 11/25/17 04:59 MCV 105 fl (79-97) H 11/25/17 04:59 MCH 33 pg (28-32) H 11/25/17 04:59 MCHC 31 % (30-34) 11/25/17 04:59 RDW 14.1 % (13.2-15.2) 11/25/17 04:59 Plt Count 264 K/mm3 (140-440) 11/25/17 04:59 Add Manual Diff Complete 11/25/17 04:59 Total Counted 100 11/25/17 04:59 Seg Neuts % (Manual) 39.0 % (40.0-70.0) L 11/25/17 04:59 Band Neutrophils % 45.0 % 11/25/17 04:59 Lymphocytes % (Manual) 7.0 % (13.4-35.0) L 11/25/17 04:59 Reactive Lymphs % (Man) 0 % 11/25/17 04:59 Monocytes % (Manual) 5.0 % (0.0-7.3) 11/25/17 04:59 Eosinophils % (Manual) 0 % (0.0-4.3) 11/25/17 04:59 Basophils % (Manual) 0 % (0.0-1.8) 11/25/17 04:59 Metamyelocytes % 4.0 % 11/25/17 04:59 Myelocytes % 0 % 11/25/17 04:59 Promyelocytes % 0 % 11/25/17 04:59 Blast Cells % 0 % 11/25/17 04:59 Nucleated RBC % 10.0 % (0.0-0.9) H 11/25/17 04:59 Seg Neutrophils # Man 2.9 K/mm3 (1.8-7.7) 11/25/17 04:59 Band Neutrophils # 3.3 K/mm3 11/25/17 04:59 Lymphocytes # (Manual) 0.5 K/mm3 (1.2-5.4) L 11/25/17 04:59 Abs React Lymphs (Man) 0.0 K/mm3 11/25/17 04:59 Monocytes # (Manual) 0.4 K/mm3 (0.0-0.8) 11/25/17 04:59 Eosinophils # (Manual) 0.0 K/mm3 (0.0-0.4) 11/25/17 04:59 Basophils # (Manual) 0.0 K/mm3 (0.0-0.1) 11/25/17 04:59 Metamyelocytes # 0.3 K/mm3 11/25/17 04:59 Myelocytes # 0.0 K/mm3 11/25/17 04:59 Promyelocytes # 0.0 K/mm3 11/25/17 04:59 Blast Cells # 0.0 K/mm3 11/25/17 04:59 WBC Morphology Not Reportable 11/25/17 04:59 Hypersegmented Neuts Not Reportable 11/25/17 04:59 Hyposegmented Neuts Not Reportable 11/25/17 04:59 Hypogranular Neuts Not Reportable 11/25/17 04:59 Smudge Cells Not Reportable 11/25/17 04:59 Toxic Granulation Not Reportable 11/25/17 04:59 Toxic Vacuolation Not Reportable 11/25/17 04:59 Dohle Bodies Few 11/25/17 04:59 Pelger-Huet Anomaly Not Reportable 11/25/17 04:59 Lindsay Rods Not Reportable 11/25/17 04:59 Platelet Estimate Appears normal 11/25/17 04:59 Clumped Platelets Not Reportable 11/25/17 04:59 Plt Clumps, EDTA Not Reportable 11/25/17 04:59 Large Platelets Few 11/25/17 04:59 Giant Platelets Not Reportable 11/25/17 04:59 Platelet Satelliting Not Reportable 11/25/17 04:59 Plt Morphology Comment Not Reportable 11/25/17 04:59 RBC Morphology Not Reportable 11/25/17 04:59 Dimorphic RBCs Not Reportable 11/25/17 04:59 Polychromasia Not Reportable 11/25/17 04:59 Hypochromasia 1+ 11/25/17 04:59 Poikilocytosis Not Reportable 11/25/17 04:59 Anisocytosis 1+ 11/25/17 04:59 Microcytosis Not Reportable 11/25/17 04:59 Macrocytosis Not Reportable 11/25/17 04:59 Spherocytes Not Reportable 11/25/17 04:59 Pappenheimer Bodies Not Reportable 11/25/17 04:59 Sickle Cells Not Reportable 11/25/17 04:59 Target Cells Not Reportable 11/25/17 04:59 Tear Drop Cells Not Reportable 11/25/17 04:59 Ovalocytes Not Reportable 11/25/17 04:59 Stomatocytes 1+ 11/25/17 04:59 Helmet Cells Not Reportable 11/25/17 04:59 [place] Bodies Not Reportable 11/25/17 04:59 [place] Rings Not Reportable 11/25/17 04:59 Tanja Cells Not Reportable 11/25/17 04:59 Bite Cells Not Reportable 11/25/17 04:59 Crenated Cell Not Reportable 11/25/17 04:59 Elliptocytes Not Reportable 11/25/17 04:59 Acanthocytes (Spur) Not Reportable 11/25/17 04:59 Rouleaux Not Reportable 11/25/17 04:59 Hemoglobin C Crystals Not Reportable 11/25/17 04:59 Schistocytes Not Reportable 11/25/17 04:59 Malaria parasites Not Reportable 11/25/17 04:59 [place] Bodies Not Reportable 11/25/17 04:59 Hem Pathologist Commnt No 11/25/17 04:59 D-Dimer 207.14 ng/mlDDU (0-234) 11/24/17 12:41 POC ABG pH 7.522 (7.35-7.45) H 11/25/17 04:54 POC ABG pCO2 59.3 (35-45) H 11/25/17 04:54 POC ABG pO2 82 (80-105) 11/25/17 04:54 POC ABG HCO3 48.6 11/25/17 04:54 POC ABG Total CO2 > 50 11/25/17 04:54 POC ABG O2 Sat 97 11/25/17 04:54 POC ABG Base Excess 26 11/25/17 04:54 FiO2 55 % 11/25/17 04:54 Sodium 148 mmol/L (137-145) H 11/25/17 04:59 Potassium 4.0 mmol/L (3.6-5.0) 11/25/17 04:59 Chloride 97.5 mmol/L (98-107) L 11/25/17 04:59 Carbon Dioxide 42 mmol/L (22-30) H* 11/25/17 04:59 Anion Gap 13 mmol/L 11/25/17 04:59 BUN 19 mg/dL (7-17) H 11/25/17 04:59 Creatinine 0.5 mg/dL (0.7-1.2) L D 11/25/17 04:59 Estimated GFR > 60 ml/min 11/25/17 04:59 BUN/Creatinine Ratio 38 % 11/25/17 04:59 Glucose 126 mg/dL (65-100) H 11/25/17 04:59 Hemoglobin A1c 5.5 % (4-6) 11/24/17 16:26 Calcium 9.1 mg/dL (8.4-10.2) 11/25/17 04:59 Total Bilirubin 0.30 mg/dL (0.1-1.2) 11/25/17 04:59 AST 11 units/L (5-40) 11/25/17 04:59 ALT 13 units/L (7-56) 11/25/17 04:59 Alkaline Phosphatase 62 units/L (35-129) 11/25/17 04:59 Total Creatine Kinase 33 units/L (30-135) 11/24/17 12:41 CK-MB (CK-2) 4.2 ng/mL (0.0-4.0) H 11/24/17 12:41 CK-MB (CK-2) Rel Index 12.7 (0-4) H 11/24/17 12:41 Troponin T < 0.010 ng/mL (0.00-0.029) 11/24/17 12:41 NT-Pro-B Natriuret Pep 4859 pg/mL (0-900) H 11/24/17 12:41 Total Protein 4.7 g/dL (6.3-8.2) L 11/25/17 04:59 Albumin 2.7 g/dL (3.9-5) L 11/25/17 04:59 Albumin/Globulin Ratio 1.4 % 11/25/17 04:59 Urine Color Yellow (Yellow) 11/24/17 Unknown Urine Turbidity Clear (Clear) 11/24/17 Unknown Urine pH 5.0 (5.0-7.0) 11/24/17 Unknown Ur Specific Foley 1.017 (1.003-1.030) 11/24/17 Unknown Urine Protein 100 mg/dl mg/dL (Negative) 11/24/17 Unknown Urine Glucose (UA) Neg mg/dL (Negative) 11/24/17 Unknown Urine Ketones Tr mg/dL (Negative) 11/24/17 Unknown Urine Blood Sm (Negative) 11/24/17 Unknown Urine Nitrite Neg (Negative) 11/24/17 Unknown Urine Bilirubin Neg (Negative) 11/24/17 Unknown Urine Urobilinogen < 2.0 mg/dL (<2.0) 11/24/17 Unknown Ur Leukocyte Esterase Neg (Negative) 11/24/17 Unknown Urine WBC (Auto) 4.0 /HPF (0.0-6.0) 11/24/17 Unknown Urine RBC (Auto) 15.0 /HPF (0.0-6.0) 11/24/17 Unknown Urine Bacteria (Auto) 1+ /HPF (Negative) 11/24/17 Unknown Urine Mucus Few /HPF 11/24/17 Unknown
[2017-11-26] MEDS: SODIUM CHLORIDE FLUSH SYRINGE 10 ML IV SCH ×4 (01:27→22:03)
--- NOTE | 2017-11-26 02:00 | XRay Report ---
FINAL REPORT EXAM: XR CHEST 1V AP HISTORY: follow up respiratory failure TECHNIQUE: A portable upright view of the chest was obtained and compared to the study of 11/25/2017. FINDINGS: The ET tube and NG tube both appear in good position. The heart size is at the upper limits of normal. There is partial clearance of patchy airspace disease peripherally in the right upper lobe and to lesser extent in the right lung base. There are still patchy airspace disease in the left apex and in the left lung base. The lungs are not congested. The skeletal structures otherwise are unchanged. IMPRESSION: Bilateral patchy airspace disease as described with slight improvement in the right upper lobe and right lung base. Satisfactory position of the ET tube and NG tube.
[2017-11-26] MEDS: ZOSYN/NS 4.5GM/100ML 4.5 GM/100 ML VIAL IV SCH ×3 (05:07→22:01)
[2017-11-26] MEDS: DUONEB *Not for PRN Use IH SCH ×4 (07:24→19:32)
[2017-11-26] MEDS: VANCOMYCIN 750 MG in NACL 0.9% 250ML 250 ML IV SCH ×2 (08:25→18:45)
--- NOTE | 2017-11-26 09:32 | Progress Note ---
Assessment and Plan 62 y/o female with hypercapnic respiratory failure, possible right lower lobe pneumonia and possible volume overload. 1. Continue broad spec abx therapy for now. CXR appears stable Gave lasix with good output but no real improve in CXR imaging. Clinically appears better. 2. Agree with Bipap therapy PRN and QHS 3. BP control, afterload reduction 4. Echo shows depressed EF with normal right sided function and values. Will give additional dose of lasix today. May need to consider cards consult for left sided heart failure work up. 5. continue ICU monitoring at least another 24 hours given marginal breathing status. CCt 31 minutes. Subjective Date of service: 11/26/17 Interval history: Extubated sometime this am. Not documented by nursing or RT that I can find. Patient still some what sleepy but easily aroused. No sedation. Did get morphine late last night around 10pm. No family at bedside. Objective Vital Signs - 12hr 11/25/17 11/25/17 11/25/17 21:31 21:45 22:00 Temperature Pulse Rate 102 H 103 H 120 H Pulse Rate [ Anterior Bilateral Throughout] Pulse Rate [ From Monitor] Respiratory 16 16 14 Rate Respiratory Rate [Anterior Bilateral Throughout] Blood Pressure 149/83 149/83 165/106 O2 Sat by Pulse 96 96 95 Oximetry 11/25/17 11/25/17 11/25/17 22:15 22:31 22:45 Temperature Pulse Rate 101 H 100 H 98 H Pulse Rate [ Anterior Bilateral Throughout] Pulse Rate [ From Monitor] Respiratory 16 16 16 Rate Respiratory Rate [Anterior Bilateral Throughout] Blood Pressure 165/106 165/106 165/106 O2 Sat by Pulse 95 95 93 Oximetry 11/25/17 11/25/17 11/25/17 23:00 23:15 23:31 Temperature Pulse Rate 101 H 93 H 90 Pulse Rate [ Anterior Bilateral Throughout] Pulse Rate [ From Monitor] Respiratory 15 16 16 Rate Respiratory Rate [Anterior Bilateral Throughout] Blood Pressure 145/88 145/88 145/88 O2 Sat by Pulse 93 93 94 Oximetry 11/25/17 11/25/17 11/26/17 23:45 23:54 00:00 Temperature 97.2 F L Pulse Rate 93 H 92 H 86 Pulse Rate [ Anterior Bilateral Throughout] Pulse Rate [ 87 From Monitor] Respiratory 16 16 Rate Respiratory Rate [Anterior Bilateral Throughout] Blood Pressure 145/88 145/68 153/82 O2 Sat by Pulse 93 94 94 Oximetry 11/26/17 11/26/17 11/26/17 00:15 00:31 00:45 Temperature Pulse Rate 90 90 90 Pulse Rate [ Anterior Bilateral Throughout] Pulse Rate [ From Monitor] Respiratory 16 16 16 Rate Respiratory Rate [Anterior Bilateral Throughout] Blood Pressure 153/82 153/82 153/82 O2 Sat by Pulse 96 95 96 Oximetry 11/26/17 11/26/17 11/26/17 01:00 01:15 01:30 Temperature Pulse Rate 86 80 93 H Pulse Rate [ Anterior Bilateral Throughout] Pulse Rate [ From Monitor] Respiratory 16 16 16 Rate Respiratory Rate [Anterior Bilateral Throughout] Blood Pressure 163/83 153/82 163/83 O2 Sat by Pulse 96 96 97 Oximetry 11/26/17 11/26/17 11/26/17 01:45 02:00 02:15 Temperature Pulse Rate 84 87 87 Pulse Rate [ Anterior Bilateral Throughout] Pulse Rate [ From Monitor] Respiratory 17 16 15 Rate Respiratory Rate [Anterior Bilateral Throughout] Blood Pressure 163/83 147/84 163/83 O2 Sat by Pulse 96 94 95 Oximetry 11/26/17 11/26/17 11/26/17 02:31 02:45 03:00 Temperature Pulse Rate 79 82 78 Pulse Rate [ Anterior Bilateral Throughout] Pulse Rate [ From Monitor] Respiratory 16 16 16 Rate Respiratory Rate [Anterior Bilateral Throughout] Blood Pressure 163/83 147/84 162/95 O2 Sat by Pulse 96 96 97 Oximetry 11/26/17 11/26/17 11/26/17 03:15 03:31 03:45 Temperature Pulse Rate 75 75 82 Pulse Rate [ Anterior Bilateral Throughout] Pulse Rate [ From Monitor] Respiratory 16 16 16 Rate Respiratory Rate [Anterior Bilateral Throughout] Blood Pressure 147/84 147/84 162/95 O2 Sat by Pulse 95 94 95 Oximetry 11/26/17 11/26/17 11/26/17 04:00 04:15 04:31 Temperature 97 F L Pulse Rate 103 H 117 H 108 H Pulse Rate [ Anterior Bilateral Throughout] Pulse Rate [ 106 H From Monitor] Respiratory 16 22 28 H Rate Respiratory Rate [Anterior Bilateral Throughout] Blood Pressure 170/102 170/102 170/102 O2 Sat by Pulse 99 96 94 Oximetry 11/26/17 11/26/17 11/26/17 04:41 04:45 05:00 Temperature Pulse Rate 103 H 100 H 99 H Pulse Rate [ Anterior Bilateral Throughout] Pulse Rate [ From Monitor] Respiratory 29 H 30 H Rate Respiratory Rate [Anterior Bilateral Throughout] Blood Pressure 170/102 170/102 169/95 O2 Sat by Pulse 94 93 94 Oximetry 11/26/17 11/26/17 11/26/17 05:15 05:31 05:45 Temperature Pulse Rate 98 H 116 H 101 H Pulse Rate [ Anterior Bilateral Throughout] Pulse Rate [ From Monitor] Respiratory 30 H 18 21 Rate Respiratory Rate [Anterior Bilateral Throughout] Blood Pressure 170/102 170/102 170/102 O2 Sat by Pulse 94 90 94 Oximetry 11/26/17 11/26/17 11/26/17 06:00 06:15 06:31 Temperature Pulse Rate 91 H 92 H 92 H Pulse Rate [ Anterior Bilateral Throughout] Pulse Rate [ From Monitor] Respiratory 25 H 28 H 26 H Rate Respiratory Rate [Anterior Bilateral Throughout] Blood Pressure 163/84 163/84 163/84 O2 Sat by Pulse 93 92 94 Oximetry 11/26/17 11/26/17 11/26/17 06:44 06:45 07:00 Temperature Pulse Rate 96 H 89 88 Pulse Rate [ Anterior Bilateral Throughout] Pulse Rate [ From Monitor] Respiratory 18 28 H 26 H Rate Respiratory Rate [Anterior Bilateral Throughout] Blood Pressure 163/84 163/84 170/88 O2 Sat by Pulse 94 95 94 Oximetry 11/26/17 11/26/17 11/26/17 07:15 07:25 07:31 Temperature Pulse Rate 86 85 86 Pulse Rate [ 85 Anterior Bilateral Throughout] Pulse Rate [ From Monitor] Respiratory 27 H 20 25 H Rate Respiratory 20 Rate [Anterior Bilateral Throughout] Blood Pressure 170/88 170/88 170/88 O2 Sat by Pulse 94 94 95 Oximetry 11/26/17 11/26/17 11/26/17 07:35 07:45 08:00 Temperature 97.7 F Pulse Rate 82 92 H Pulse Rate [ 85 Anterior Bilateral Throughout] Pulse Rate [ 89 From Monitor] Respiratory 24 23 Rate Respiratory 28 H Rate [Anterior Bilateral Throughout] Blood Pressure 170/88 162/85 O2 Sat by Pulse 92 91 Oximetry 11/26/17 11/26/17 08:15 08:31 Temperature Pulse Rate 80 90 Pulse Rate [ Anterior Bilateral Throughout] Pulse Rate [ From Monitor] Respiratory 24 26 H Rate Respiratory Rate [Anterior Bilateral Throughout] Blood Pressure 170/88 170/88 O2 Sat by Pulse 96 96 Oximetry Eyes: non-icteric Neck: supple Effort: normal Ascultation: Bilateral: diminished breath sounds Percussion: Bilateral: not dull Cardiovascular: regular rate and rhythm Gastrointestinal: normoactive bowel sounds, soft, non-tender Extremities: no edema Neurologic: unable to assess CBC and BMP: 11/25/17 04:59 11/25/17 04:59 ABG, PT/INR, D-dimer: ABG POC ABG pH 7.418 (7.35-7.45) 11/26/17 06:44 POC ABG pCO2 83.8 (35-45) H 11/26/17 06:44 POC ABG pO2 67 (80-105) L 11/26/17 06:44 POC ABG HCO3 54.1 11/26/17 06:44 POC ABG Total CO2 > 50 11/26/17 06:44 POC ABG O2 Sat 92 11/26/17 06:44 PT/INR, D-dimer D-Dimer 207.14 ng/mlDDU (0-234) 11/24/17 12:41 Abnormal lab findings: Abnormal Labs 11/24/17 11/24/17 11/24/17 12:41 12:41 12:41 WBC 3.5 L RBC Hct 43.4 H MCV 108 H MCH 33 H Seg Neuts % (Manual) Lymphocytes % (Manual) Monocytes % (Manual) 10.0 H Nucleated RBC % 7.0 H Seg Neutrophils # Man 1.4 L Lymphocytes # (Manual) 0.8 L POC ABG pH POC ABG pCO2 POC ABG pO2 Sodium Potassium 3.5 L Chloride 93.5 L Carbon Dioxide 46 H* BUN Creatinine 0.3 L Glucose CK-MB (CK-2) 4.2 H CK-MB (CK-2) Rel Index 12.7 H NT-Pro-B Natriuret Pep 4859 H Total Protein Albumin 11/24/17 11/24/17 11/24/17 12:57 16:38 16:50 WBC RBC Hct MCV MCH Seg Neuts % (Manual) Lymphocytes % (Manual) Monocytes % (Manual) Nucleated RBC % Seg Neutrophils # Man Lymphocytes # (Manual) POC ABG pH 7.154 L 7.478 H 7.492 H POC ABG pCO2 > 130.0 H 70.6 H 67.6 H POC ABG pO2 62 L 50 L 50 L Sodium Potassium Chloride Carbon Dioxide BUN Creatinine Glucose CK-MB (CK-2) CK-MB (CK-2) Rel Index NT-Pro-B Natriuret Pep Total Protein Albumin 11/25/17 11/25/17 11/25/17 04:54 04:59 04:59 WBC RBC 3.61 L Hct MCV 105 H MCH 33 H Seg Neuts % (Manual) 39.0 L Lymphocytes % (Manual) 7.0 L Monocytes % (Manual) Nucleated RBC % 10.0 H Seg Neutrophils # Man Lymphocytes # (Manual) 0.5 L POC ABG pH 7.522 H POC ABG pCO2 59.3 H POC ABG pO2 Sodium 148 H Potassium Chloride 97.5 L Carbon Dioxide 42 H* BUN 19 H Creatinine 0.5 L D Glucose 126 H CK-MB (CK-2) CK-MB (CK-2) Rel Index NT-Pro-B Natriuret Pep Total Protein 4.7 L Albumin 2.7 L 11/26/17 06:44 WBC RBC Hct MCV MCH Seg Neuts % (Manual) Lymphocytes % (Manual) Monocytes % (Manual) Nucleated RBC % Seg Neutrophils # Man Lymphocytes # (Manual) POC ABG pH POC ABG pCO2 83.8 H POC ABG pO2 67 L Sodium Potassium Chloride Carbon Dioxide BUN Creatinine Glucose CK-MB (CK-2) CK-MB (CK-2) Rel Index NT-Pro-B Natriuret Pep Total Protein Albumin
[2017-11-26 10:10] LABS: Hematocrit 37.1 % (30.3-42.9); Hemoglobin 11.8 gm/dl (10.1-14.3); Mean Corpuscular HGB Conc 32 % (30-34); Mean Corpuscular Hemoglobin 33 pg (28-32); Mean Corpuscular Volume 103 fl (79-97); Platelet Count 259 K/mm3 (140-440); Red Cell Distribution Width 14.2 % (13.2-15.2)
[2017-11-26 10:31] LABS: BUN/Creatinine Ratio 73; Blood Urea Nitrogen 29 mg/dL (7-17); Calcium 9.1 mg/dL (8.4-10.2); Hemolysis Index 1
[2017-11-26] MEDS ORDERED: LASIX IV ONE (11:00)
[2017-11-26] MEDS: LOVENOX SUB-Q SCH (11:34)
[2017-11-26] MEDS: PEPCID IV SCH ×2 (11:34→22:01)
[2017-11-26] MEDS: TYLENOL PO PRN (13:06)
--- NOTE | 2017-11-26 15:34 | Progress Note ---
Assessment and Plan Assessment and plan: Ms. Torres is a 62 yo woman with history of chronic respiratory failure on home o2 due to end stage COPD and who still smokes cigarettes pw SOB. She was recently admitted in October with similar presentation. She failed bipap therapy per ED report and was electively intubated. pCXR reported as Bilateral pneumonias and possible pleural fluid, right more than left and greatest towards the bases, representing worsening since October 2017 , as described. -Acute on chronc hypercapneic respiratory failure: on bipap, pulm is following -Acute bilateral Aspiration pneumonitis with sepsis, poa: IV abx, follow up sputum ctx and blood cultures -AE COPD: iv steroids, neb, iv abx -Acute systolic heart failure: Echo and treat with iv lasix==>consulted cardiology -Severe malnutrition, poa: consult Training Associate History Interval history: Patient was seen and examined. Follow-up on current diagnosis of sob, on bipap. Overnight uneventful. Patient denies any chest pain, nausea/vomiting or severe headaches. Imaging, nursing note, chart, labs and old chart reviewed. Discussed with patient. Hospitalist Physical - Physical exam Narrative exam: GEN: cachetic, ill appearing intubated on versed HEENT: NCAT, EOMI, PERRL, OP ETT in place NECK: supple, no adenopathy, no thyromegaly, no JVD CVS/HEART: Regular tachycardia, normal S1S2, pulses present bilaterally CHEST/LUNGS: bibasilar crackles, Symmetrical chest expansion, good air entry bilaterally GI/Abdomen: soft, NTND, good bowel sounds, no guarding or rebound /Bladder: no suprapubic tenderness, no CVA or paraspinal tenderness EXT/Skin: no c/c/e, no obvious rash MSK: +spontaneous movement Neuro: CN 2-12 grossly intact,sedated Psych: sedated - Constitutional Vitals: Temp Pulse Resp BP Pulse Ox 98.6 F 96 H 26 H 160/71 94 11/26/17 12:00 11/26/17 15:00 11/26/17 15:00 11/26/17 15:00 11/26/17 15:00 Results - Labs CBC & Chem 7: 11/26/17 09:39 11/26/17 09:39 Labs: Laboratory Last Values WBC 11.6 K/mm3 (4.5-11.0) H 11/26/17 09:39 RBC 3.60 M/mm3 (3.65-5.03) L 11/26/17 09:39 Hgb 11.8 gm/dl (10.1-14.3) 11/26/17 09:39 Hct 37.1 % (30.3-42.9) 11/26/17 09:39 MCV 103 fl (79-97) H 11/26/17 09:39 MCH 33 pg (28-32) H 11/26/17 09:39 MCHC 32 % (30-34) 11/26/17 09:39 RDW 14.2 % (13.2-15.2) 11/26/17 09:39 Plt Count 259 K/mm3 (140-440) 11/26/17 09:39 Add Manual Diff Complete 11/25/17 04:59 Total Counted 100 11/25/17 04:59 Seg Neuts % (Manual) 39.0 % (40.0-70.0) L 11/25/17 04:59 Band Neutrophils % 45.0 % 11/25/17 04:59 Lymphocytes % (Manual) 7.0 % (13.4-35.0) L 11/25/17 04:59 Reactive Lymphs % (Man) 0 % 11/25/17 04:59 Monocytes % (Manual) 5.0 % (0.0-7.3) 11/25/17 04:59 Eosinophils % (Manual) 0 % (0.0-4.3) 11/25/17 04:59 Basophils % (Manual) 0 % (0.0-1.8) 11/25/17 04:59 Metamyelocytes % 4.0 % 11/25/17 04:59 Myelocytes % 0 % 11/25/17 04:59 Promyelocytes % 0 % 11/25/17 04:59 Blast Cells % 0 % 11/25/17 04:59 Nucleated RBC % 10.0 % (0.0-0.9) H 11/25/17 04:59 Seg Neutrophils # Man 2.9 K/mm3 (1.8-7.7) 11/25/17 04:59 Band Neutrophils # 3.3 K/mm3 11/25/17 04:59 Lymphocytes # (Manual) 0.5 K/mm3 (1.2-5.4) L 11/25/17 04:59 Abs React Lymphs (Man) 0.0 K/mm3 11/25/17 04:59 Monocytes # (Manual) 0.4 K/mm3 (0.0-0.8) 11/25/17 04:59 Eosinophils # (Manual) 0.0 K/mm3 (0.0-0.4) 11/25/17 04:59 Basophils # (Manual) 0.0 K/mm3 (0.0-0.1) 11/25/17 04:59 Metamyelocytes # 0.3 K/mm3 11/25/17 04:59 Myelocytes # 0.0 K/mm3 11/25/17 04:59 Promyelocytes # 0.0 K/mm3 11/25/17 04:59 Blast Cells # 0.0 K/mm3 11/25/17 04:59 WBC Morphology Not Reportable 11/25/17 04:59 Hypersegmented Neuts Not Reportable 11/25/17 04:59 Hyposegmented Neuts Not Reportable 11/25/17 04:59 Hypogranular Neuts Not Reportable 11/25/17 04:59 Smudge Cells Not Reportable 11/25/17 04:59 Toxic Granulation Not Reportable 11/25/17 04:59 Toxic Vacuolation Not Reportable 11/25/17 04:59 Dohle Bodies Few 11/25/17 04:59 Pelger-Huet Anomaly Not Reportable 11/25/17 04:59 Lindsay Rods Not Reportable 11/25/17 04:59 Platelet Estimate Appears normal 11/25/17 04:59 Clumped Platelets Not Reportable 11/25/17 04:59 Plt Clumps, EDTA Not Reportable 11/25/17 04:59 Large Platelets Few 11/25/17 04:59 Giant Platelets Not Reportable 11/25/17 04:59 Platelet Satelliting Not Reportable 11/25/17 04:59 Plt Morphology Comment Not Reportable 11/25/17 04:59 RBC Morphology Not Reportable 11/25/17 04:59 Dimorphic RBCs Not Reportable 11/25/17 04:59 Polychromasia Not Reportable 11/25/17 04:59 Hypochromasia 1+ 11/25/17 04:59 Poikilocytosis Not Reportable 11/25/17 04:59 Anisocytosis 1+ 11/25/17 04:59 Microcytosis Not Reportable 11/25/17 04:59 Macrocytosis Not Reportable 11/25/17 04:59 Spherocytes Not Reportable 11/25/17 04:59 Pappenheimer Bodies Not Reportable 11/25/17 04:59 Sickle Cells Not Reportable 11/25/17 04:59 Target Cells Not Reportable 11/25/17 04:59 Tear Drop Cells Not Reportable 11/25/17 04:59 Ovalocytes Not Reportable 11/25/17 04:59 Stomatocytes 1+ 11/25/17 04:59 Helmet Cells Not Reportable 11/25/17 04:59 [place] Bodies Not Reportable 11/25/17 04:59 [place] Rings Not Reportable 11/25/17 04:59 Mallie Cells Not Reportable 11/25/17 04:59 Bite Cells Not Reportable 11/25/17 04:59 Crenated Cell Not Reportable 11/25/17 04:59 Elliptocytes Not Reportable 11/25/17 04:59 Acanthocytes (Spur) Not Reportable 11/25/17 04:59 Rouleaux Not Reportable 11/25/17 04:59 Hemoglobin C Crystals Not Reportable 11/25/17 04:59 Schistocytes Not Reportable 11/25/17 04:59 Malaria parasites Not Reportable 11/25/17 04:59 Emerson Bodies Not Reportable 11/25/17 04:59 Hem Pathologist Commnt No 11/25/17 04:59 D-Dimer 207.14 ng/mlDDU (0-234) 11/24/17 12:41 POC ABG pH 7.418 (7.35-7.45) 11/26/17 06:44 POC ABG pCO2 83.8 (35-45) H 11/26/17 06:44 POC ABG pO2 67 (80-105) L 11/26/17 06:44 POC ABG HCO3 54.1 11/26/17 06:44 POC ABG Total CO2 > 50 11/26/17 06:44 POC ABG O2 Sat 92 11/26/17 06:44 POC ABG Base Excess 30 11/26/17 06:44 FiO2 40 % 11/26/17 06:44 Sodium 152 mmol/L (137-145) H 11/26/17 09:39 Potassium 3.3 mmol/L (3.6-5.0) L 11/26/17 09:39 Chloride 99.0 mmol/L (98-107) 11/26/17 09:39 Carbon Dioxide 44 mmol/L (22-30) H* 11/26/17 09:39 Anion Gap 12 mmol/L 11/26/17 09:39 BUN 29 mg/dL (7-17) H 11/26/17 09:39 Creatinine 0.4 mg/dL (0.7-1.2) L 11/26/17 09:39 Estimated GFR > 60 ml/min 11/26/17 09:39 BUN/Creatinine Ratio 73 % 11/26/17 09:39 Glucose 108 mg/dL (65-100) H 11/26/17 09:39 Hemoglobin A1c 5.5 % (4-6) 11/24/17 16:26 Calcium 9.1 mg/dL (8.4-10.2) 11/26/17 09:39 Phosphorus 3.60 mg/dL (2.5-4.5) 11/26/17 09:39 Magnesium 2.10 mg/dL (1.7-2.3) 11/26/17 09:39 Total Bilirubin 0.30 mg/dL (0.1-1.2) 11/25/17 04:59 AST 11 units/L (5-40) 11/25/17 04:59 ALT 13 units/L (7-56) 11/25/17 04:59 Alkaline Phosphatase 62 units/L (35-129) 11/25/17 04:59 Total Creatine Kinase 33 units/L (30-135) 11/24/17 12:41 CK-MB (CK-2) 4.2 ng/mL (0.0-4.0) H 11/24/17 12:41 CK-MB (CK-2) Rel Index 12.7 (0-4) H 11/24/17 12:41 Troponin T < 0.010 ng/mL (0.00-0.029) 11/24/17 12:41 NT-Pro-B Natriuret Pep 4859 pg/mL (0-900) H 11/24/17 12:41 Total Protein 4.7 g/dL (6.3-8.2) L 11/25/17 04:59 Albumin 2.7 g/dL (3.9-5) L 11/25/17 04:59 Albumin/Globulin Ratio 1.4 % 11/25/17 04:59 Urine Color Yellow (Yellow) 11/24/17 Unknown Urine Turbidity Clear (Clear) 11/24/17 Unknown Urine pH 5.0 (5.0-7.0) 11/24/17 Unknown Ur Specific [place] 1.017 (1.003-1.030) 11/24/17 Unknown Urine Protein 100 mg/dl mg/dL (Negative) 11/24/17 Unknown Urine Glucose (UA) Neg mg/dL (Negative) 11/24/17 Unknown Urine Ketones Tr mg/dL (Negative) 11/24/17 Unknown Urine Blood Sm (Negative) 11/24/17 Unknown Urine Nitrite Neg (Negative) 11/24/17 Unknown Urine Bilirubin Neg (Negative) 11/24/17 Unknown Urine Urobilinogen < 2.0 mg/dL (<2.0) 11/24/17 Unknown Ur Leukocyte Esterase Neg (Negative) 11/24/17 Unknown Urine WBC (Auto) 4.0 /HPF (0.0-6.0) 11/24/17 Unknown Urine RBC (Auto) 15.0 /HPF (0.0-6.0) 11/24/17 Unknown Urine Bacteria (Auto) 1+ /HPF (Negative) 11/24/17 Unknown Urine Mucus Few /HPF 11/24/17 Unknown
[2017-11-26] MEDS: KCL 10MEQ/100ML 10 MEQ/100 ML BAG IV SCH ×2 (15:48→17:37)
--- NOTE | 2017-11-26 15:55 | Consultation ---
History of Present Illness Consult date: 11/26/17 Consult reason: congestive heart failure History of present illness: This is a 62yr old woman who presented with shortness of breath, acute respiratory failure, requiring intubation in the emergency department. Patient has history of COPD and Asthma. Initial chest xray reports bilateral patchy airspace disease. Patient is now extubated and appears comfortable. She reports her breathing is better. She denies chest pain. There is no lower extremity edema. Patient denies a prior cardiac history. She has no had any prior cardiac workup. Initial workup shows a BNP of 4859 thus concerns for CHF. Further cardiac evaluation with an echocardiogram reveals a mildly decreased left ventricular systolic function, ejection fraction 40-45%. Cardiac consultation was requested. 12 lead ECG is a sinus rhythm with left ventricular hypertrophy. Medications and Allergies Allergies Allergy/AdvReac Type Severity Reaction Status Date / Time peanut Allergy Angioedema Verified 07/23/16 00:17 ipratropium bromide AdvReac Shortness Verified 09/11/13 07:39 [From Atrovent] of Breath Home Medications Medication Instructions Recorded Confirmed Last Taken Type ALBUTEROL Inhaler [ProAir HFA 2 puff IH QID PRN #1 inha 09/16/17 11/24/17 Unknown Rx Inhaler] ALBUTEROL NEB's [Proventil 0.083% 2.5 mg IH Q4HRT PRN #60 nebu 09/16/17 Unknown Rx NEBS] Arformoterol Nebu [Brovana Nebu] 15 mcg IH Q12HRT #60 ml 09/16/17 11/24/17 Unknown Rx Montelukast [Singulair] 10 mg PO QHS #30 tablet 09/16/17 11/24/17 Unknown Rx Prednisone [predniSONE 10 mg 10 mg PO .TAPER #1 tab.ds.pk 11/03/17 11/24/17 Unknown Rx (6-Day Pack, 21 Tabs)] Active Meds: Active Medications Acetaminophen (Tylenol) 650 mg PO Q4H PRN PRN Reason: Pain MILD(1-3)/Fever >100.5/PÉREZ Last Admin: 11/26/17 13:06 Dose: 650 mg Albuterol/Ipratropium (Duoneb *Not For Prn Use*) 1 ampul IH QIDRT [facility] Last Admin: 11/26/17 12:02 Dose: 1 ampul Albuterol/Ipratropium (Duoneb *Not For Prn Use*) 1 ampul IH Q3H PRN PRN Reason: Wheezing Enoxaparin Sodium (Lovenox) 40 mg SUB-Q QDAY [facility] Last Admin: 11/26/17 11:34 Dose: 40 mg Famotidine (Pepcid) 20 mg IV BID [facility] Last Admin: 11/26/17 11:34 Dose: 20 mg Hydrophilic Ointment (Vaseline Lip Therapy) 1 applic TP Q2HR PRN PRN Reason: Dry Lips Piperacillin Sod/Tazobactam Sod (Zosyn/Ns 4.5gm/100ml) 4.5 gm in 100 mls @ 200 mls/hr IV Q8HR [facility]; Protocol Last Admin: 11/26/17 14:34 Dose: 100 mls/hr Vancomycin HCl 750 mg/ Sodium (Chloride) 257.5 mls @ 166.667 mls/hr IV Q12H [facility] Last Admin: 11/26/17 08:25 Dose: 166.667 mls/hr Potassium Chloride (Kcl 10meq/100ml) 10 meq in 100 mls @ 100 mls/hr IV Q1H [facility] Stop: 11/26/17 17:59 Methylprednisolone Sodium Succinate (Solu-Medrol) 60 mg IV Q6HR [facility] Last Admin: 11/26/17 11:34 Dose: 60 mg Multi-Ingred Cream/Lotion/Oil/Oint (Artificial Tears Ophth Oint) 1 applic OU Q4HR PRN PRN Reason: Dry Eye(s) Ondansetron HCl (Zofran) 4 mg IV Q8H PRN PRN Reason: Nausea And Vomiting Sodium Chloride (Nacl 0.9% 500 Ml) 1 ml IV DIRECT [place] Sodium Chloride (Sodium Chloride Flush Syringe 10 Ml) 10 ml IV BID [facility] Last Admin: 11/26/17 11:34 Dose: 10 ml Sodium Chloride (Sodium Chloride Flush Syringe 10 Ml) 10 ml IV PRN PRN PRN Reason: LINE FLUSH Vancomycin HCl (Vancomycin Pharmacy To Dose) 1 each IV PKCONSULT [facility]; Protocol Physical Examination Vital Signs Pulse Resp 92 H 34 H 11/24/17 12:40 11/24/17 12:40 General appearance: no acute distress HEENT: Positive: PERRL Cardiac: Positive: Reg Rate and Rhythm Lungs: Positive: Decreased Breath Sounds Neuro: Positive: Grossly Intact Extremities: Absent: edema Results 11/26/17 09:39 11/26/17 09:39 CBC 11/26/17 Range/Units 09:39 WBC 11.6 H (4.5-11.0) K/mm3 RBC 3.60 L (3.65-5.03) M/mm3 Hgb 11.8 (10.1-14.3) gm/dl Hct 37.1 (30.3-42.9) % Plt Count 259 (140-440) K/mm3 Comprehensive Metabolic Panel 11/26/17 Range/Units 09:39 Sodium 152 H (137-145) mmol/L Potassium 3.3 L (3.6-5.0) mmol/L Chloride 99.0 (98-107) mmol/L Carbon Dioxide 44 H* (22-30) mmol/L BUN 29 H (7-17) mg/dL Creatinine 0.4 L (0.7-1.2) mg/dL Glucose 108 H (65-100) mg/dL Calcium 9.1 (8.4-10.2) mg/dL Assessment and Plan Pneumonia Acute respiratory failure s/p extubation Acute systolic heart failure EF 40-45% by echo Hx of COPD/Asthma
[2017-11-26] MEDS: ZESTRIL PO SCH (19:53)
[2017-11-26] MEDS: COREG PO SCH (22:01)
--- NOTE | 2017-11-27 03:06 | XRay Report ---
FINAL REPORT EXAM: XR CHEST 1V AP HISTORY: follow up respiratory failure TECHNIQUE: A portable upright view of the chest was obtained and compared to the study of 11/26/2017. FINDINGS: There are stable patchy infiltrates in the right lower lobe. The heart size is normal. Mild congestion cannot be excluded. There EKG leads overlying the chest wall. The skeletal structures reveal osteoporosis. The patient has been extubated since the previous study. The NG tube is also been removed. IMPRESSION: Stable right lower lobe infiltrates. Interval extubation and removal of the NG tube since the previous study.
[2017-11-27 04:18] LABS: Hematocrit 34.6 % (30.3-42.9); Hemoglobin 10.8 gm/dl (10.1-14.3); Mean Corpuscular HGB Conc 31 % (30-34); Mean Corpuscular Hemoglobin 32 pg (28-32); Mean Corpuscular Volume 104 fl (79-97); Platelet Count 248 K/mm3 (140-440); Red Blood Count 3.32 M/mm3 (3.65-5.03)
[2017-11-27 04:31] LABS: BUN/Creatinine Ratio 67; Blood Urea Nitrogen 20 mg/dL (7-17); Calcium 8.7 mg/dL (8.4-10.2); Hemolysis Index 2
[2017-11-27] MEDS: ZOSYN/NS 4.5GM/100ML 4.5 GM/100 ML VIAL IV SCH ×3 (05:28→22:55)
[2017-11-27] MEDS: TYLENOL PO PRN ×3 (05:29→21:35)
[2017-11-27] MEDS: VANCOMYCIN 750 MG in NACL 0.9% 250ML 250 ML IV SCH ×3 (05:30→21:44)
[2017-11-27] MEDS: DUONEB *Not for PRN Use IH SCH ×5 (05:39→21:30)
[2017-11-27] MEDS ORDERED: K-DUR PO ONE (10:10)
[2017-11-27] MEDS: ZESTRIL PO SCH (10:36)
[2017-11-27] MEDS: COREG PO SCH ×2 (10:36→21:37)
[2017-11-27] MEDS: LOVENOX SUB-Q SCH (10:38)
[2017-11-27] MEDS: PEPCID IV SCH (10:38)
--- NOTE | 2017-11-27 11:27 | Progress Note ---
Assessment and Plan Hypercapneic respiratory failure Respiratory acidosis with compensatory metabolic alkalosis Chronic obstructive pulmonary disease Cardiomyopathy, LVEF 40-45% (new onset) Pulmonary edema and elevated BNP consistent with acute combined heart failure Hypernatremia Systemic Hypertension Recommendations: Afterload reduction with lisinopril Low dose coreg Gentle diuresis Lexiscan once acute medical issues resolve Subjective Date of service: 11/27/17 Principal diagnosis: respiratory failure Interval history: Still in the ICU No acute events Objective Vital Signs Temp Pulse Pulse Pulse Resp Resp BP 11/27/17 10:36 83 146/76 11/27/17 08:00 97.9 F 11/27/17 07:35 84 18 11/27/17 07:25 64 18 11/27/17 07:00 59 L 18 133/66 11/27/17 06:45 59 L 19 146/89 11/27/17 06:31 58 L 18 146/89 11/27/17 06:15 69 20 146/89 11/27/17 06:01 63 18 146/89 11/27/17 05:45 63 18 146/89 11/27/17 05:40 97 H 18 11/27/17 05:37 98 H 16 11/27/17 05:31 90 11 L 146/89 11/27/17 05:15 58 L 19 146/89 11/27/17 05:01 63 18 146/89 11/27/17 04:45 62 18 146/89 11/27/17 04:31 84 21 146/89 11/27/17 04:15 86 13 146/89 11/27/17 04:10 11/27/17 04:01 85 16 146/89 11/27/17 04:00 97.6 F 20 11/27/17 03:45 66 16 138/82 11/27/17 03:31 66 17 138/82 11/27/17 03:15 68 16 138/82 11/27/17 03:00 66 17 138/82 11/27/17 02:45 59 L 16 128/60 11/27/17 02:31 61 14 128/60 11/27/17 02:15 61 16 128/60 11/27/17 02:00 59 L 16 128/60 11/27/17 01:45 62 16 125/63 11/27/17 01:31 62 18 125/63 11/27/17 01:15 70 20 125/63 18 01:00 68 18 141/63 11/27/17 00:45 65 20 141/63 11/27/17 00:31 75 18 141/63 11/27/17 00:22 75 19 141/63 18 00:15 68 20 141/63 11/27/17 00:00 97.6 F 68 19 141/63 11/26/17 23:45 78 20 145/62 18 23:31 70 19 145/62 18 23:15 75 20 145/62 11/26/17 23:05 75 19 145/62 11/26/17 23:00 72 20 145/62 11/26/17 22:45 88 20 168/74 11/26/17 22:31 95 H 20 168/74 11/26/17 22:15 98 H 24 168/74 11/26/17 22:00 96 H 20 168/74 11/26/17 21:45 105 H 27 H 156/84 11/26/17 21:31 93 H 20 156/84 11/26/17 21:15 104 H 20 156/84 11/26/17 21:01 126 H 24 156/84 11/26/17 20:45 110 H 29 H 156/84 11/26/17 20:31 104 H 15 156/84 11/26/17 20:15 101 H 17 156/84 11/26/17 20:10 92 H 18 11/26/17 20:00 111 H 25 H 156/84 11/26/17 19:48 98.6 F 11/26/17 19:45 108 H 20 163/67 11/26/17 19:35 11/26/17 19:34 90 18 11/26/17 19:31 88 14 126/45 11/26/17 19:15 104 H 26 H 126/45 11/26/17 19:01 90 20 126/45 11/26/17 18:45 100 H 25 H 156/69 18 18:31 102 H 27 H 156/69 18 18:15 99 H 24 156/69 18 18:00 99 H 89 26 H 151/73 11/26/17 17:45 107 H 24 151/73 11/26/17 17:31 106 H 25 H 151/73 11/26/17 17:15 106 H 29 H 151/73 11/26/17 17:00 101 H 21 151/73 11/26/17 16:45 106 H 25 H 164/86 18 16:31 98 H 10 L 164/86 11/26/17 16:23 90 16 11/26/17 16:22 94 H 16 11/26/17 16:15 97 H 24 164/86 11/26/17 16:00 98.4 F 106 H 89 21 164/86 11/26/17 15:45 96 H 22 160/71 11/26/17 15:31 89 27 H 160/71 11/26/17 15:15 94 H 25 H 160/71 11/26/17 15:00 96 H 26 H 160/71 11/26/17 14:45 96 H 19 126/53 11/26/17 14:31 106 H 23 126/53 11/26/17 14:15 100 H 25 H 126/53 11/26/17 14:00 105 H 89 17 126/53 11/26/17 13:45 106 H 24 160/84 11/26/17 13:31 107 H 11 L 160/84 11/26/17 13:15 114 H 15 149/72 11/26/17 13:00 106 H 22 149/72 11/26/17 12:45 125 H 24 172/82 11/26/17 12:31 109 H 24 172/82 11/26/17 12:15 95 H 19 172/82 11/26/17 12:13 80 20 11/26/17 12:02 75 17 11/26/17 12:01 85 9 L 172/82 11/26/17 12:00 98.6 F 89 25 H 11/26/17 11:59 75 17 138/62 11/26/17 11:45 78 19 138/62 11/26/17 11:31 71 18 138/62 Pulse Ox 11/27/17 10:36 11/27/17 08:00 11/27/17 07:35 11/27/17 07:25 98 11/27/17 07:00 98 11/27/17 06:45 98 11/27/17 06:31 99 11/27/17 06:15 99 11/27/17 06:01 99 11/27/17 05:45 100 11/27/17 05:40 11/27/17 05:37 11/27/17 05:31 100 11/27/17 05:15 100 11/27/17 05:01 100 11/27/17 04:45 100 11/27/17 04:31 99 11/27/17 04:15 99 11/27/17 04:10 99 11/27/17 04:01 100 11/27/17 04:00 98 11/27/17 03:45 99 11/27/17 03:31 99 11/27/17 03:15 99 11/27/17 03:00 99 11/27/17 02:45 98 11/27/17 02:31 98 11/27/17 02:15 98 11/27/17 02:00 97 11/27/17 01:45 97 11/27/17 01:31 97 11/27/17 01:15 97 11/27/17 01:00 97 11/27/17 00:45 98 11/27/17 00:31 97 11/27/17 00:22 98 11/27/17 00:15 99 11/27/17 00:00 99 11/26/17 23:45 99 11/26/17 23:31 99 11/26/17 23:15 98 11/26/17 23:05 98 11/26/17 23:00 98 11/26/17 22:45 98 11/26/17 22:31 97 11/26/17 22:15 96 11/26/17 22:00 97 11/26/17 21:45 97 11/26/17 21:31 95 11/26/17 21:15 95 11/26/17 21:01 95 11/26/17 20:45 95 11/26/17 20:31 95 11/26/17 20:15 96 11/26/17 20:10 11/26/17 20:00 96 11/26/17 19:48 11/26/17 19:45 97 11/26/17 19:35 99 11/26/17 19:34 11/26/17 19:31 99 11/26/17 19:15 95 11/26/17 19:01 96 11/26/17 18:45 95 11/26/17 18:31 95 11/26/17 18:15 94 11/26/17 18:00 94 11/26/17 17:45 93 11/26/17 17:31 94 11/26/17 17:15 92 11/26/17 17:00 93 11/26/17 16:45 96 11/26/17 16:31 99 11/26/17 16:23 11/26/17 16:22 11/26/17 16:15 94 11/26/17 16:00 94 11/26/17 15:45 97 11/26/17 15:31 95 11/26/17 15:15 94 11/26/17 15:00 94 11/26/17 14:45 93 11/26/17 14:31 94 11/26/17 14:15 96 11/26/17 14:00 94 11/26/17 13:45 93 11/26/17 13:31 93 11/26/17 13:15 90 11/26/17 13:00 86 11/26/17 12:45 84 11/26/17 12:31 90 11/26/17 12:15 95 11/26/17 12:13 11/26/17 12:02 11/26/17 12:01 98 11/26/17 12:00 95 11/26/17 11:59 97 11/26/17 11:45 98 11/26/17 11:31 98 - Physical Examination Narrative exam: Vitals reviewed GEN: No acute distress noted HEENT: Carotids 2+ NECK: Supple CVS: S1 and S2 heard no significant murmur or gallop noted LUNGS/CHEST: Normal auscultation ABD: Soft nontender Extremities: No edema noted normal color NEURO: Alert moves all all 4 extremities PSY: Stable HEENT: Positive: PERRL Neuro: Positive: Grossly Intact Extremities: Absent: edema - Labs and Meds CBC 11/27/17 Range/Units 03:54 WBC 14.5 H (4.5-11.0) K/mm3 RBC 3.32 L (3.65-5.03) M/mm3 Hgb 10.8 (10.1-14.3) gm/dl Hct 34.6 (30.3-42.9) % Plt Count 248 (140-440) K/mm3 Comprehensive Metabolic Panel 11/27/17 Range/Units 03:54 Sodium 142 D (137-145) mmol/L Potassium 3.1 L (3.6-5.0) mmol/L Chloride 91.7 L (98-107) mmol/L Carbon Dioxide 45 H* (22-30) mmol/L BUN 20 H (7-17) mg/dL Creatinine 0.3 L (0.7-1.2) mg/dL Glucose 144 H (65-100) mg/dL Calcium 8.7 (8.4-10.2) mg/dL
--- NOTE | 2017-11-27 12:20 | Progress Note ---
Assessment and Plan Assessment and plan: Ms. Torres is a 62 yo woman with history of chronic respiratory failure on 3L home O2 due to end stage COPD and prior tobacco dependency pw SOB. She was recently admitted in October with similar presentation. She failed bipap therapy per ED report and was electively intubated. pCXR reported as Bilateral pneumonias and possible pleural fluid, right more than left and greatest towards the bases, representing worsening since October 2017 , as described. -Acute on chronc hypercapneic respiratory failure: off bipap, pulm is following -Acute bilateral Aspiration pneumonitis with sepsis, poa: IV abx, follow up sputum ctx and blood cultures -AE COPD: iv steroids, neb, iv abx -Acute combined heart failure: Echo and treat with iv lasix==>consulted cardiology, will need ischemic evaluation prior to discharge -Severe malnutrition, poa: consult [facility] -DVT prophylaxis: sq lovenox transfer out of icu if ok with Dr. Mancilla History Interval history: Patient was seen and examined. Follow-up on current diagnosis of sob, off bipap during better, on nasal canula o2. Overnight uneventful. Patient denies any chest pain, nausea/vomiting or severe headaches. Imaging, nursing note, chart, labs and old chart reviewed. Discussed with patient. Hospitalist Physical - Physical exam Narrative exam: GEN: cachetic,nad a/o x 3 HEENT: NCAT, EOMI, PERRL, OP clear NECK: supple, no adenopathy, no thyromegaly, no JVD CVS/HEART: RRR, normal S1S2, pulses present bilaterally CHEST/LUNGS: right base crackles, Symmetrical chest expansion, good air entry bilaterally GI/Abdomen: soft, NTND, good bowel sounds, no guarding or rebound /Bladder: no suprapubic tenderness, no CVA or paraspinal tenderness EXT/Skin: no c/c/e, no obvious rash MSK: from x 4 Neuro: CN 2-12 grossly intact, no focal deficit Psych: calm - Constitutional Vitals: Temp Pulse Resp BP Pulse Ox 97.9 F 85 22 159/80 93 11/27/17 08:00 11/27/17 11:31 11/27/17 11:01 11/27/17 11:31 11/27/17 11:31 General appearance: Present: no acute distress Results - Labs CBC & Chem 7: 11/27/17 03:54 11/27/17 03:54 Labs: Laboratory Last Values WBC 14.5 K/mm3 (4.5-11.0) H 11/27/17 03:54 RBC 3.32 M/mm3 (3.65-5.03) L 11/27/17 03:54 Hgb 10.8 gm/dl (10.1-14.3) 11/27/17 03:54 Hct 34.6 % (30.3-42.9) 11/27/17 03:54 MCV 104 fl (79-97) H 11/27/17 03:54 MCH 32 pg (28-32) 11/27/17 03:54 MCHC 31 % (30-34) 11/27/17 03:54 RDW 14.0 % (13.2-15.2) 11/27/17 03:54 Plt Count 248 K/mm3 (140-440) 11/27/17 03:54 Add Manual Diff Complete 11/25/17 04:59 Total Counted 100 11/25/17 04:59 Seg Neuts % (Manual) 39.0 % (40.0-70.0) L 11/25/17 04:59 Band Neutrophils % 45.0 % 11/25/17 04:59 Lymphocytes % (Manual) 7.0 % (13.4-35.0) L 11/25/17 04:59 Reactive Lymphs % (Man) 0 % 11/25/17 04:59 Monocytes % (Manual) 5.0 % (0.0-7.3) 11/25/17 04:59 Eosinophils % (Manual) 0 % (0.0-4.3) 11/25/17 04:59 Basophils % (Manual) 0 % (0.0-1.8) 11/25/17 04:59 Metamyelocytes % 4.0 % 11/25/17 04:59 Myelocytes % 0 % 11/25/17 04:59 Promyelocytes % 0 % 11/25/17 04:59 Blast Cells % 0 % 11/25/17 04:59 Nucleated RBC % 10.0 % (0.0-0.9) H 11/25/17 04:59 Seg Neutrophils # Man 2.9 K/mm3 (1.8-7.7) 11/25/17 04:59 Band Neutrophils # 3.3 K/mm3 11/25/17 04:59 Lymphocytes # (Manual) 0.5 K/mm3 (1.2-5.4) L 11/25/17 04:59 Abs React Lymphs (Man) 0.0 K/mm3 11/25/17 04:59 Monocytes # (Manual) 0.4 K/mm3 (0.0-0.8) 11/25/17 04:59 Eosinophils # (Manual) 0.0 K/mm3 (0.0-0.4) 11/25/17 04:59 Basophils # (Manual) 0.0 K/mm3 (0.0-0.1) 11/25/17 04:59 Metamyelocytes # 0.3 K/mm3 11/25/17 04:59 Myelocytes # 0.0 K/mm3 11/25/17 04:59 Promyelocytes # 0.0 K/mm3 11/25/17 04:59 Blast Cells # 0.0 K/mm3 11/25/17 04:59 WBC Morphology Not Reportable 11/25/17 04:59 Hypersegmented Neuts Not Reportable 11/25/17 04:59 Hyposegmented Neuts Not Reportable 11/25/17 04:59 Hypogranular Neuts Not Reportable 11/25/17 04:59 Smudge Cells Not Reportable 11/25/17 04:59 Toxic Granulation Not Reportable 11/25/17 04:59 Toxic Vacuolation Not Reportable 11/25/17 04:59 Dohle Bodies Few 11/25/17 04:59 Pelger-Huet Anomaly Not Reportable 11/25/17 04:59 Lindasy Rods Not Reportable 11/25/17 04:59 Platelet Estimate Appears normal 11/25/17 04:59 Clumped Platelets Not Reportable 11/25/17 04:59 Plt Clumps, EDTA Not Reportable 11/25/17 04:59 Large Platelets Few 11/25/17 04:59 Giant Platelets Not Reportable 11/25/17 04:59 Platelet Satelliting Not Reportable 11/25/17 04:59 Plt Morphology Comment Not Reportable 11/25/17 04:59 RBC Morphology Not Reportable 11/25/17 04:59 Dimorphic RBCs Not Reportable 11/25/17 04:59 Polychromasia Not Reportable 11/25/17 04:59 Hypochromasia 1+ 11/25/17 04:59 Poikilocytosis Not Reportable 11/25/17 04:59 Anisocytosis 1+ 11/25/17 04:59 Microcytosis Not Reportable 11/25/17 04:59 Macrocytosis Not Reportable 11/25/17 04:59 Spherocytes Not Reportable 11/25/17 04:59 Pappenheimer Bodies Not Reportable 11/25/17 04:59 Sickle Cells Not Reportable 11/25/17 04:59 Target Cells Not Reportable 11/25/17 04:59 Tear Drop Cells Not Reportable 11/25/17 04:59 Ovalocytes Not Reportable 11/25/17 04:59 Stomatocytes 1+ 11/25/17 04:59 Helmet Cells Not Reportable 11/25/17 04:59 Beltran-Welsh Bodies Not Reportable 11/25/17 04:59 [place] Rings Not Reportable 11/25/17 04:59 Tanja Cells Not Reportable 11/25/17 04:59 Bite Cells Not Reportable 11/25/17 04:59 Crenated Cell Not Reportable 11/25/17 04:59 Elliptocytes Not Reportable 11/25/17 04:59 Acanthocytes (Spur) Not Reportable 11/25/17 04:59 Rouleaux Not Reportable 11/25/17 04:59 Hemoglobin C Crystals Not Reportable 11/25/17 04:59 Schistocytes Not Reportable 11/25/17 04:59 Malaria parasites Not Reportable 11/25/17 04:59 [place] Bodies Not Reportable 11/25/17 04:59 Hem Pathologist Commnt No 11/25/17 04:59 D-Dimer 207.14 ng/mlDDU (0-234) 11/24/17 12:41 POC ABG pH 7.418 (7.35-7.45) 11/26/17 06:44 POC ABG pCO2 83.8 (35-45) H 11/26/17 06:44 POC ABG pO2 67 (80-105) L 11/26/17 06:44 POC ABG HCO3 54.1 11/26/17 06:44 POC ABG Total CO2 > 50 11/26/17 06:44 POC ABG O2 Sat 92 11/26/17 06:44 POC ABG Base Excess 30 11/26/17 06:44 FiO2 40 % 11/26/17 06:44 Sodium 142 mmol/L (137-145) D 11/27/17 03:54 Potassium 3.1 mmol/L (3.6-5.0) L 11/27/17 03:54 Chloride 91.7 mmol/L (98-107) L 11/27/17 03:54 Carbon Dioxide 45 mmol/L (22-30) H* 11/27/17 03:54 Anion Gap 8 mmol/L 11/27/17 03:54 BUN 20 mg/dL (7-17) H 11/27/17 03:54 Creatinine 0.3 mg/dL (0.7-1.2) L 11/27/17 03:54 Estimated GFR > 60 ml/min 11/27/17 03:54 BUN/Creatinine Ratio 67 % 11/27/17 03:54 Glucose 144 mg/dL (65-100) H 11/27/17 03:54 Hemoglobin A1c 5.5 % (4-6) 11/24/17 16:26 Calcium 8.7 mg/dL (8.4-10.2) 11/27/17 03:54 Phosphorus 3.60 mg/dL (2.5-4.5) 11/26/17 09:39 Magnesium 2.00 mg/dL (1.7-2.3) 11/27/17 03:54 Total Bilirubin 0.30 mg/dL (0.1-1.2) 11/25/17 04:59 AST 11 units/L (5-40) 11/25/17 04:59 ALT 13 units/L (7-56) 11/25/17 04:59 Alkaline Phosphatase 62 units/L (35-129) 11/25/17 04:59 Total Creatine Kinase 33 units/L (30-135) 11/24/17 12:41 CK-MB (CK-2) 4.2 ng/mL (0.0-4.0) H 11/24/17 12:41 CK-MB (CK-2) Rel Index 12.7 (0-4) H 11/24/17 12:41 Troponin T < 0.010 ng/mL (0.00-0.029) 11/24/17 12:41 NT-Pro-B Natriuret Pep 4859 pg/mL (0-900) H 11/24/17 12:41 Total Protein 4.7 g/dL (6.3-8.2) L 11/25/17 04:59 Albumin 2.7 g/dL (3.9-5) L 11/25/17 04:59 Albumin/Globulin Ratio 1.4 % 11/25/17 04:59 Urine Color Yellow (Yellow) 11/24/17 Unknown Urine Turbidity Clear (Clear) 11/24/17 Unknown Urine pH 5.0 (5.0-7.0) 11/24/17 Unknown Ur Specific [place] 1.017 (1.003-1.030) 11/24/17 Unknown Urine Protein 100 mg/dl mg/dL (Negative) 11/24/17 Unknown Urine Glucose (UA) Neg mg/dL (Negative) 11/24/17 Unknown Urine Ketones Tr mg/dL (Negative) 11/24/17 Unknown Urine Blood Sm (Negative) 11/24/17 Unknown Urine Nitrite Neg (Negative) 11/24/17 Unknown Urine Bilirubin Neg (Negative) 11/24/17 Unknown Urine Urobilinogen < 2.0 mg/dL (<2.0) 11/24/17 Unknown Ur Leukocyte Esterase Neg (Negative) 11/24/17 Unknown Urine WBC (Auto) 4.0 /HPF (0.0-6.0) 11/24/17 Unknown Urine RBC (Auto) 15.0 /HPF (0.0-6.0) 11/24/17 Unknown Urine Bacteria (Auto) 1+ /HPF (Negative) 11/24/17 Unknown Urine Mucus Few /HPF 11/24/17 Unknown
--- NOTE | 2017-11-27 12:44 | Progress Note ---
Assessment and Plan 62 y/o female with hypercapnic respiratory failure, possible right lower lobe pneumonia and possible volume overload. 1. Continue broad spec abx therapy for now. CXR appears stable. Hold on lasix for now. 2. Agree with Bipap therapy PRN and QHS 3. BP control, afterload reduction 4. Echo shows depressed EF with normal right sided function and values. May need to consider cards consult for left sided heart failure work up. 5. Ok with transfer to floor Subjective Date of service: 11/27/17 Principal diagnosis: respiratory failure Interval history: No acute events. More awake and alert. Hates the food. Objective Vital Signs - 12hr 11/27/17 11/27/17 11/27/17 00:45 01:00 01:15 Temperature Pulse Rate 65 68 70 Pulse Rate [ Anterior Bilateral Throughout] Respiratory 20 18 20 Rate Respiratory Rate [Anterior Bilateral Throughout] Blood Pressure 141/63 141/63 125/63 O2 Sat by Pulse 98 97 97 Oximetry 11/27/17 11/27/17 11/27/17 01:31 01:45 02:00 Temperature Pulse Rate 62 62 59 L Pulse Rate [ Anterior Bilateral Throughout] Respiratory 18 16 16 Rate Respiratory Rate [Anterior Bilateral Throughout] Blood Pressure 125/63 125/63 128/60 O2 Sat by Pulse 97 97 97 Oximetry 11/27/17 11/27/17 11/27/17 02:15 02:31 02:45 Temperature Pulse Rate 61 61 59 L Pulse Rate [ Anterior Bilateral Throughout] Respiratory 16 14 16 Rate Respiratory Rate [Anterior Bilateral Throughout] Blood Pressure 128/60 128/60 128/60 O2 Sat by Pulse 98 98 98 Oximetry 11/27/17 11/27/17 11/27/17 03:00 03:15 03:31 Temperature Pulse Rate 66 68 66 Pulse Rate [ Anterior Bilateral Throughout] Respiratory 17 16 17 Rate Respiratory Rate [Anterior Bilateral Throughout] Blood Pressure 138/82 138/82 138/82 O2 Sat by Pulse 99 99 99 Oximetry 11/27/17 11/27/17 11/27/17 03:45 04:00 04:01 Temperature 97.6 F Pulse Rate 66 85 Pulse Rate [ Anterior Bilateral Throughout] Respiratory 16 20 16 Rate Respiratory Rate [Anterior Bilateral Throughout] Blood Pressure 138/82 146/89 O2 Sat by Pulse 99 98 100 Oximetry 11/27/17 11/27/17 11/27/17 04:10 04:15 04:31 Temperature Pulse Rate 86 84 Pulse Rate [ Anterior Bilateral Throughout] Respiratory 13 21 Rate Respiratory Rate [Anterior Bilateral Throughout] Blood Pressure 146/89 146/89 O2 Sat by Pulse 99 99 99 Oximetry 11/27/17 11/27/17 11/27/17 04:45 05:01 05:15 Temperature Pulse Rate 62 63 58 L Pulse Rate [ Anterior Bilateral Throughout] Respiratory 18 18 19 Rate Respiratory Rate [Anterior Bilateral Throughout] Blood Pressure 146/89 146/89 146/89 O2 Sat by Pulse 100 100 100 Oximetry 11/27/17 11/27/17 11/27/17 05:31 05:37 05:40 Temperature Pulse Rate 90 Pulse Rate [ 98 H 97 H Anterior Bilateral Throughout] Respiratory 11 L Rate Respiratory 16 18 Rate [Anterior Bilateral Throughout] Blood Pressure 146/89 O2 Sat by Pulse 100 Oximetry 11/27/17 11/27/17 11/27/17 05:45 06:01 06:15 Temperature Pulse Rate 63 63 69 Pulse Rate [ Anterior Bilateral Throughout] Respiratory 18 18 20 Rate Respiratory Rate [Anterior Bilateral Throughout] Blood Pressure 146/89 146/89 146/89 O2 Sat by Pulse 100 99 99 Oximetry 11/27/17 11/27/17 11/27/17 06:31 06:45 07:00 Temperature Pulse Rate 58 L 59 L 59 L Pulse Rate [ Anterior Bilateral Throughout] Respiratory 18 19 18 Rate Respiratory Rate [Anterior Bilateral Throughout] Blood Pressure 146/89 146/89 133/66 O2 Sat by Pulse 99 98 98 Oximetry 11/27/17 11/27/17 11/27/17 07:15 07:25 07:31 Temperature Pulse Rate 51 L 65 Pulse Rate [ 64 Anterior Bilateral Throughout] Respiratory 19 17 Rate Respiratory 18 Rate [Anterior Bilateral Throughout] Blood Pressure 133/66 133/66 O2 Sat by Pulse 98 98 98 Oximetry 11/27/17 11/27/17 11/27/17 07:35 07:45 08:00 Temperature 97.9 F Pulse Rate 63 66 Pulse Rate [ 84 Anterior Bilateral Throughout] Respiratory 20 22 Rate Respiratory 18 Rate [Anterior Bilateral Throughout] Blood Pressure 133/66 142/73 O2 Sat by Pulse 97 97 Oximetry 11/27/17 11/27/17 11/27/17 08:15 08:31 08:45 Temperature Pulse Rate 81 71 96 H Pulse Rate [ Anterior Bilateral Throughout] Respiratory 23 22 20 Rate Respiratory Rate [Anterior Bilateral Throughout] Blood Pressure 142/73 142/73 142/73 O2 Sat by Pulse 96 89 88 Oximetry 11/27/17 11/27/17 11/27/17 09:01 09:15 09:31 Temperature Pulse Rate 76 73 64 Pulse Rate [ Anterior Bilateral Throughout] Respiratory 23 22 21 Rate Respiratory Rate [Anterior Bilateral Throughout] Blood Pressure 142/73 142/73 142/73 O2 Sat by Pulse 94 94 96 Oximetry 11/27/17 11/27/17 11/27/17 09:45 10:01 10:15 Temperature Pulse Rate 66 69 94 H Pulse Rate [ Anterior Bilateral Throughout] Respiratory 21 21 20 Rate Respiratory Rate [Anterior Bilateral Throughout] Blood Pressure 142/73 142/73 142/73 O2 Sat by Pulse 96 96 94 Oximetry 11/27/17 11/27/17 11/27/17 10:31 10:36 10:45 Temperature Pulse Rate 83 83 86 Pulse Rate [ Anterior Bilateral Throughout] Respiratory 12 28 H Rate Respiratory Rate [Anterior Bilateral Throughout] Blood Pressure 146/76 146/76 146/76 O2 Sat by Pulse 90 Oximetry 11/27/17 11/27/17 11/27/17 11:01 11:15 11:31 Temperature Pulse Rate 95 H 85 Pulse Rate [ Anterior Bilateral Throughout] Respiratory 22 Rate Respiratory Rate [Anterior Bilateral Throughout] Blood Pressure 146/76 159/80 159/80 O2 Sat by Pulse 91 93 Oximetry Eyes: non-icteric Neck: supple Effort: normal Ascultation: Bilateral: diminished breath sounds Percussion: Bilateral: not dull Cardiovascular: regular rate and rhythm Gastrointestinal: normoactive bowel sounds, soft, non-tender Extremities: no edema Neurologic: unable to assess CBC and BMP: 11/27/17 03:54 11/27/17 03:54 ABG, PT/INR, D-dimer: ABG POC ABG pH 7.418 (7.35-7.45) 11/26/17 06:44 POC ABG pCO2 83.8 (35-45) H 11/26/17 06:44 POC ABG pO2 67 (80-105) L 11/26/17 06:44 POC ABG HCO3 54.1 11/26/17 06:44 POC ABG Total CO2 > 50 11/26/17 06:44 POC ABG O2 Sat 92 11/26/17 06:44 PT/INR, D-dimer D-Dimer 207.14 ng/mlDDU (0-234) 11/24/17 12:41 Abnormal lab findings: Abnormal Labs 11/24/17 11/24/17 11/24/17 12:41 12:41 12:41 WBC 3.5 L RBC Hct 43.4 H MCV 108 H MCH 33 H Seg Neuts % (Manual) Lymphocytes % (Manual) Monocytes % (Manual) 10.0 H Nucleated RBC % 7.0 H Seg Neutrophils # Man 1.4 L Lymphocytes # (Manual) 0.8 L POC ABG pH POC ABG pCO2 POC ABG pO2 Sodium Potassium 3.5 L Chloride 93.5 L Carbon Dioxide 46 H* BUN Creatinine 0.3 L Glucose CK-MB (CK-2) 4.2 H CK-MB (CK-2) Rel Index 12.7 H NT-Pro-B Natriuret Pep 4859 H Total Protein Albumin 11/24/17 11/24/17 11/24/17 12:57 16:38 16:50 WBC RBC Hct MCV MCH Seg Neuts % (Manual) Lymphocytes % (Manual) Monocytes % (Manual) Nucleated RBC % Seg Neutrophils # Man Lymphocytes # (Manual) POC ABG pH 7.154 L 7.478 H 7.492 H POC ABG pCO2 > 130.0 H 70.6 H 67.6 H POC ABG pO2 62 L 50 L 50 L Sodium Potassium Chloride Carbon Dioxide BUN Creatinine Glucose CK-MB (CK-2) CK-MB (CK-2) Rel Index NT-Pro-B Natriuret Pep Total Protein Albumin 11/25/17 11/25/17 11/25/17 04:54 04:59 04:59 WBC RBC 3.61 L Hct MCV 105 H MCH 33 H Seg Neuts % (Manual) 39.0 L Lymphocytes % (Manual) 7.0 L Monocytes % (Manual) Nucleated RBC % 10.0 H Seg Neutrophils # Man Lymphocytes # (Manual) 0.5 L POC ABG pH 7.522 H POC ABG pCO2 59.3 H POC ABG pO2 Sodium 148 H Potassium Chloride 97.5 L Carbon Dioxide 42 H* BUN 19 H Creatinine 0.5 L D Glucose 126 H CK-MB (CK-2) CK-MB (CK-2) Rel Index NT-Pro-B Natriuret Pep Total Protein 4.7 L Albumin 2.7 L 06/08/18 06/08/18 06/08/18 06:44 09:39 09:39 WBC 11.6 H RBC 3.60 L Hct MCV 103 H MCH 33 H Seg Neuts % (Manual) Lymphocytes % (Manual) Monocytes % (Manual) Nucleated RBC % Seg Neutrophils # Man Lymphocytes # (Manual) POC ABG pH POC ABG pCO2 83.8 H POC ABG pO2 67 L Sodium 152 H Potassium 3.3 L Chloride Carbon Dioxide 44 H* BUN 29 H Creatinine 0.4 L Glucose 108 H CK-MB (CK-2) CK-MB (CK-2) Rel Index NT-Pro-B Natriuret Pep Total Protein Albumin 11/27/17 11/27/17 03:54 03:54 WBC 14.5 H RBC 3.32 L Hct MCV 104 H MCH Seg Neuts % (Manual) Lymphocytes % (Manual) Monocytes % (Manual) Nucleated RBC % Seg Neutrophils # Man Lymphocytes # (Manual) POC ABG pH POC ABG pCO2 POC ABG pO2 Sodium Potassium 3.1 L Chloride 91.7 L Carbon Dioxide 45 H* BUN 20 H Creatinine 0.3 L Glucose 144 H CK-MB (CK-2) CK-MB (CK-2) Rel Index NT-Pro-B Natriuret Pep Total Protein Albumin
[2017-11-27] MEDS: PROTONIX PO SCH (19:30)
[2017-11-27] MEDS: PROVENTIL IH SCH (21:22)
[2017-11-27] MEDS: SODIUM CHLORIDE FLUSH SYRINGE 10 ML IV SCH (21:41)
[2017-11-28] MEDS: ZOSYN/NS 4.5GM/100ML 4.5 GM/100 ML VIAL IV SCH ×3 (05:50→21:59)
[2017-11-28] MEDS: VANCOMYCIN 750 MG in NACL 0.9% 250ML 250 ML IV SCH ×3 (06:22→22:04)
[2017-11-28 07:18] LABS: Mean Corpuscular HGB Conc 30 % (30-34); Mean Corpuscular Hemoglobin 32 pg (28-32); Mean Corpuscular Volume 104 fl (79-97); Platelet Count 251 K/mm3 (140-440); Red Blood Count 3.43 M/mm3 (3.65-5.03); Red Cell Distribution Width 14.1 % (13.2-15.2)
[2017-11-28 07:31] LABS: Hematocrit 35.6 % (30.3-42.9); Hemoglobin 10.8 gm/dl (10.1-14.3)
[2017-11-28 07:42] LABS: BUN/Creatinine Ratio 50; Blood Urea Nitrogen 15 mg/dL (7-17); Calcium 9.2 mg/dL (8.4-10.2); Hemolysis Index 3
[2017-11-28] MEDS: PROVENTIL IH SCH ×4 (08:08→20:27)
[2017-11-28] MEDS ORDERED: K-DUR PO ONE (08:28)
--- NOTE | 2017-11-28 08:28 | Progress Note ---
Assessment and Plan Assessment and plan: Ms. Torres is a 62 yo woman with history of chronic respiratory failure on 3L home O2 due to end stage COPD and prior tobacco dependency pw SOB. She was recently admitted in October with similar presentation. She failed bipap therapy per ED report and was electively intubated. pCXR reported as Bilateral pneumonias and possible pleural fluid, right more than left and greatest towards the bases, representing worsening since October 2017 , as described. 11/25/17 2D ECHO reported as left ventricular chamber size is mildy dilated, mild concentric LVH, global lv systolic function is mildly decreased, est EF 40-45%, trace AR, RVSP is normal -Acute on chronc hypercapneic respiratory failure: off bipap, pulm is following -Acute bilateral Aspiration pneumonitis with sepsis, poa: IV abx, follow up sputum ctx and blood cultures -AE COPD: iv steroids, neb, iv abx -Acute combined heart failure: Echo and treat with iv lasix==>consulted cardiology, will need ischemic evaluation prior to discharge -Severe malnutrition, poa: consult Chips Screen Tender -DVT prophylaxis: sq lovenox Repleted potassium History Interval history: Patient was seen and examined. Follow-up on current diagnosis of sob, off bipap during better, on nasal canula o2. Overnight uneventful. Patient denies any chest pain, nausea/vomiting or severe headaches. Imaging, nursing note, chart, labs and old chart reviewed. Discussed with patient. Hospitalist Physical - Physical exam Narrative exam: GEN: cachetic,nad a/o x 3 HEENT: NCAT, EOMI, PERRL, OP clear NECK: supple, no adenopathy, no thyromegaly, no JVD CVS/HEART: RRR, normal S1S2, pulses present bilaterally CHEST/LUNGS: right base crackles, Symmetrical chest expansion, good air entry bilaterally GI/Abdomen: soft, NTND, good bowel sounds, no guarding or rebound /Bladder: no suprapubic tenderness, no CVA or paraspinal tenderness EXT/Skin: no c/c/e, no obvious rash MSK: from x 4 Neuro: CN 2-12 grossly intact, no focal deficit Psych: calm - Constitutional Vitals: Temp Pulse Resp BP Pulse Ox 98.0 F 64 18 151/73 98 11/28/17 04:00 11/28/17 04:00 11/28/17 04:00 11/28/17 04:00 11/28/17 00:02 General appearance: Present: no acute distress Results - Labs CBC & Chem 7: 11/28/17 06:31 11/28/17 06:31 Labs: Laboratory Last Values WBC 17.8 K/mm3 (4.5-11.0) H 11/28/17 06:31 RBC 3.43 M/mm3 (3.65-5.03) L 11/28/17 06:31 Hgb 10.8 gm/dl (10.1-14.3) 11/28/17 06:31 Hct 35.6 % (30.3-42.9) 11/28/17 06:31 MCV 104 fl (79-97) H 11/28/17 06:31 MCH 32 pg (28-32) 11/28/17 06:31 MCHC 30 % (30-34) 11/28/17 06:31 RDW 14.1 % (13.2-15.2) 11/28/17 06:31 Plt Count 251 K/mm3 (140-440) 11/28/17 06:31 Add Manual Diff Complete 11/25/17 04:59 Total Counted 100 11/25/17 04:59 Seg Neuts % (Manual) 39.0 % (40.0-70.0) L 11/25/17 04:59 Band Neutrophils % 45.0 % 11/25/17 04:59 Lymphocytes % (Manual) 7.0 % (13.4-35.0) L 11/25/17 04:59 Reactive Lymphs % (Man) 0 % 11/25/17 04:59 Monocytes % (Manual) 5.0 % (0.0-7.3) 11/25/17 04:59 Eosinophils % (Manual) 0 % (0.0-4.3) 11/25/17 04:59 Basophils % (Manual) 0 % (0.0-1.8) 11/25/17 04:59 Metamyelocytes % 4.0 % 11/25/17 04:59 Myelocytes % 0 % 11/25/17 04:59 Promyelocytes % 0 % 11/25/17 04:59 Blast Cells % 0 % 11/25/17 04:59 Nucleated RBC % 10.0 % (0.0-0.9) H 11/25/17 04:59 Seg Neutrophils # Man 2.9 K/mm3 (1.8-7.7) 11/25/17 04:59 Band Neutrophils # 3.3 K/mm3 11/25/17 04:59 Lymphocytes # (Manual) 0.5 K/mm3 (1.2-5.4) L 11/25/17 04:59 Abs React Lymphs (Man) 0.0 K/mm3 11/25/17 04:59 Monocytes # (Manual) 0.4 K/mm3 (0.0-0.8) 11/25/17 04:59 Eosinophils # (Manual) 0.0 K/mm3 (0.0-0.4) 11/25/17 04:59 Basophils # (Manual) 0.0 K/mm3 (0.0-0.1) 11/25/17 04:59 Metamyelocytes # 0.3 K/mm3 11/25/17 04:59 Myelocytes # 0.0 K/mm3 11/25/17 04:59 Promyelocytes # 0.0 K/mm3 11/25/17 04:59 Blast Cells # 0.0 K/mm3 11/25/17 04:59 WBC Morphology Not Reportable 11/25/17 04:59 Hypersegmented Neuts Not Reportable 11/25/17 04:59 Hyposegmented Neuts Not Reportable 11/25/17 04:59 Hypogranular Neuts Not Reportable 11/25/17 04:59 Smudge Cells Not Reportable 11/25/17 04:59 Toxic Granulation Not Reportable 11/25/17 04:59 Toxic Vacuolation Not Reportable 11/25/17 04:59 Dohle Bodies Few 11/25/17 04:59 Pelger-Huet Anomaly Not Reportable 11/25/17 04:59 Lindsay Rods Not Reportable 11/25/17 04:59 Platelet Estimate Appears normal 11/25/17 04:59 Clumped Platelets Not Reportable 11/25/17 04:59 Plt Clumps, EDTA Not Reportable 11/25/17 04:59 Large Platelets Few 11/25/17 04:59 Giant Platelets Not Reportable 11/25/17 04:59 Platelet Satelliting Not Reportable 11/25/17 04:59 Plt Morphology Comment Not Reportable 11/25/17 04:59 RBC Morphology Not Reportable 11/25/17 04:59 Dimorphic RBCs Not Reportable 11/25/17 04:59 Polychromasia Not Reportable 11/25/17 04:59 Hypochromasia 1+ 11/25/17 04:59 Poikilocytosis Not Reportable 11/25/17 04:59 Anisocytosis 1+ 11/25/17 04:59 Microcytosis Not Reportable 11/25/17 04:59 Macrocytosis Not Reportable 11/25/17 04:59 Spherocytes Not Reportable 11/25/17 04:59 Pappenheimer Bodies Not Reportable 11/25/17 04:59 Sickle Cells Not Reportable 11/25/17 04:59 Target Cells Not Reportable 11/25/17 04:59 Tear Drop Cells Not Reportable 11/25/17 04:59 Ovalocytes Not Reportable 11/25/17 04:59 Stomatocytes 1+ 11/25/17 04:59 Helmet Cells Not Reportable 11/25/17 04:59 [place] Bodies Not Reportable 11/25/17 04:59 [place] Rings Not Reportable 11/25/17 04:59 [place]ja Cells Not Reportable 11/25/17 04:59 Bite Cells Not Reportable 11/25/17 04:59 Crenated Cell Not Reportable 11/25/17 04:59 Elliptocytes Not Reportable 11/25/17 04:59 Acanthocytes (Spur) Not Reportable 11/25/17 04:59 Rouleaux Not Reportable 11/25/17 04:59 Hemoglobin C Crystals Not Reportable 11/25/17 04:59 Schistocytes Not Reportable 11/25/17 04:59 Malaria parasites Not Reportable 11/25/17 04:59 [place] Bodies Not Reportable 11/25/17 04:59 Hem Pathologist Commnt No 11/25/17 04:59 D-Dimer 207.14 ng/mlDDU (0-234) 11/24/17 12:41 POC ABG pH 7.418 (7.35-7.45) 11/26/17 06:44 POC ABG pCO2 83.8 (35-45) H 11/26/17 06:44 POC ABG pO2 67 (80-105) L 11/26/17 06:44 POC ABG HCO3 54.1 11/26/17 06:44 POC ABG Total CO2 > 50 11/26/17 06:44 POC ABG O2 Sat 92 11/26/17 06:44 POC ABG Base Excess 30 11/26/17 06:44 FiO2 40 % 11/26/17 06:44 Sodium 142 mmol/L (137-145) 11/28/17 06:31 Potassium 3.3 mmol/L (3.6-5.0) L 11/28/17 06:31 Chloride 91.2 mmol/L (98-107) L 11/28/17 06:31 Carbon Dioxide 45 mmol/L (22-30) H* 11/28/17 06:31 Anion Gap 9 mmol/L 11/28/17 06:31 BUN 15 mg/dL (7-17) 11/28/17 06:31 Creatinine 0.3 mg/dL (0.7-1.2) L 11/28/17 06:31 Estimated GFR > 60 ml/min 11/28/17 06:31 BUN/Creatinine Ratio 50 % 11/28/17 06:31 Glucose 120 mg/dL (65-100) H 11/28/17 06:31 Hemoglobin A1c 5.5 % (4-6) 11/24/17 16:26 Calcium 9.2 mg/dL (8.4-10.2) 11/28/17 06:31 Phosphorus 3.60 mg/dL (2.5-4.5) 11/26/17 09:39 Magnesium 1.90 mg/dL (1.7-2.3) 11/28/17 06:31 Total Bilirubin 0.30 mg/dL (0.1-1.2) 11/25/17 04:59 AST 11 units/L (5-40) 11/25/17 04:59 ALT 13 units/L (7-56) 11/25/17 04:59 Alkaline Phosphatase 62 units/L (35-129) 11/25/17 04:59 Total Creatine Kinase 33 units/L (30-135) 11/24/17 12:41 CK-MB (CK-2) 4.2 ng/mL (0.0-4.0) H 11/24/17 12:41 CK-MB (CK-2) Rel Index 12.7 (0-4) H 11/24/17 12:41 Troponin T < 0.010 ng/mL (0.00-0.029) 11/24/17 12:41 NT-Pro-B Natriuret Pep 4859 pg/mL (0-900) H 11/24/17 12:41 Total Protein 4.7 g/dL (6.3-8.2) L 11/25/17 04:59 Albumin 2.7 g/dL (3.9-5) L 11/25/17 04:59 Albumin/Globulin Ratio 1.4 % 11/25/17 04:59 Urine Color Yellow (Yellow) 11/24/17 Unknown Urine Turbidity Clear (Clear) 11/24/17 Unknown Urine pH 5.0 (5.0-7.0) 11/24/17 Unknown Ur Specific [place] 1.017 (1.003-1.030) 11/24/17 Unknown Urine Protein 100 mg/dl mg/dL (Negative) 11/24/17 Unknown Urine Glucose (UA) Neg mg/dL (Negative) 11/24/17 Unknown Urine Ketones Tr mg/dL (Negative) 11/24/17 Unknown Urine Blood Sm (Negative) 11/24/17 Unknown Urine Nitrite Neg (Negative) 11/24/17 Unknown Urine Bilirubin Neg (Negative) 11/24/17 Unknown Urine Urobilinogen < 2.0 mg/dL (<2.0) 11/24/17 Unknown Ur Leukocyte Esterase Neg (Negative) 11/24/17 Unknown Urine WBC (Auto) 4.0 /HPF (0.0-6.0) 11/24/17 Unknown Urine RBC (Auto) 15.0 /HPF (0.0-6.0) 11/24/17 Unknown Urine Bacteria (Auto) 1+ /HPF (Negative) 11/24/17 Unknown Urine Mucus Few /HPF 11/24/17 Unknown
[2017-11-28] MEDS: TYLENOL PO PRN ×2 (10:11→22:23)
[2017-11-28] MEDS: PROTONIX PO SCH (10:13)
[2017-11-28] MEDS: LOVENOX SUB-Q SCH (10:13)
[2017-11-28] MEDS: COREG PO SCH ×2 (10:14→22:00)
[2017-11-28] MEDS: ZESTRIL PO SCH (10:16)
[2017-11-28] MEDS: SODIUM CHLORIDE FLUSH SYRINGE 10 ML IV SCH ×2 (10:16→22:03)
--- NOTE | 2017-11-28 11:08 | Progress Note ---
Assessment and Plan Hypercapneic respiratory failure Respiratory acidosis with compensatory metabolic alkalosis Chronic obstructive pulmonary disease Cardiomyopathy, LVEF 40-45% (new onset) Pulmonary edema and elevated BNP consistent with acute combined heart failure Hypernatremia Systemic Hypertension moderate control increase beta blockers Recommendations: Afterload reduction with lisinopril Increase dose of coreg Gentle diuresis Lexiscan once acute medical issues resolve Subjective Date of service: 11/28/17 Principal diagnosis: respiratory failure Interval history: Transfer to the telemetry yesterday from ICU No acute events Objective Vital Signs Temp Pulse Pulse Resp Resp BP BP 11/28/17 10:16 84 158/77 11/28/17 10:14 84 158/77 11/28/17 10:11 17 11/28/17 08:08 80 16 11/28/17 08:00 76 16 11/28/17 07:23 97.8 F 68 18 158/77 11/28/17 04:00 98.0 F 64 18 151/73 11/28/17 00:02 64 17 11/27/17 23:00 97.7 F 67 18 141/65 11/27/17 22:00 85 20 11/27/17 21:37 86 166/90 11/27/17 21:26 76 18 11/27/17 19:46 98.1 F 86 20 166/90 11/27/17 19:42 98.1 F 86 18 166/90 11/27/17 17:00 84 151/72 11/27/17 16:51 92 H 141/75 11/27/17 16:33 70 20 11/27/17 16:31 79 141/75 11/27/17 16:23 67 18 11/27/17 16:15 80 141/75 11/27/17 16:00 98.3 F 70 141/75 11/27/17 15:45 62 139/67 11/27/17 15:31 74 139/67 11/27/17 15:15 59 L 139/67 11/27/17 15:00 62 139/67 11/27/17 14:45 64 142/72 11/27/17 14:31 66 142/72 11/27/17 14:15 67 142/72 11/27/17 14:00 68 144/72 11/27/17 13:45 72 142/72 11/27/17 13:31 75 142/72 11/27/17 13:15 70 142/72 11/27/17 13:00 69 142/72 11/27/17 12:45 78 147/82 11/27/17 12:40 66 18 11/27/17 12:31 70 147/82 11/27/17 12:30 89 18 11/27/17 12:15 81 147/82 11/27/17 12:00 98.9 F 79 147/82 11/27/17 11:45 79 146/76 11/27/17 11:31 85 159/80 11/27/17 11:15 95 H 159/80 Pulse Ox 11/28/17 10:16 11/28/17 10:14 11/28/17 10:11 11/28/17 08:08 11/28/17 08:00 93 11/28/17 07:23 95 11/28/17 04:00 11/28/17 00:02 98 11/27/17 23:00 11/27/17 22:00 98 11/27/17 21:37 11/27/17 21:26 97 11/27/17 19:46 100 11/27/17 19:42 100 11/27/17 17:00 96 11/27/17 16:51 97 11/27/17 16:33 11/27/17 16:31 97 11/27/17 16:23 11/27/17 16:15 97 11/27/17 16:00 99 11/27/17 15:45 99 11/27/17 15:31 96 11/27/17 15:15 97 11/27/17 15:00 97 11/27/17 14:45 96 11/27/17 14:31 96 11/27/17 14:15 94 11/27/17 14:00 96 11/27/17 13:45 97 11/27/17 13:31 94 11/27/17 13:15 11/27/17 13:00 96 11/27/17 12:45 95 11/27/17 12:40 11/27/17 12:31 95 11/27/17 12:30 11/27/17 12:15 95 11/27/17 12:00 93 11/27/17 11:45 93 11/27/17 11:31 93 11/27/17 11:15 91 - Physical Examination Narrative exam: Vitals reviewed GEN: No acute distress noted HEENT: Carotids 2+ NECK: Supple CVS: S1 and S2 heard no significant murmur or gallop noted LUNGS/CHEST: Expiratory wheeze ABD: Soft nontender Extremities: No edema noted normal color NEURO: Alert moves all all 4 extremities PSY: Stable HEENT: Positive: PERRL Neuro: Positive: Grossly Intact Extremities: Absent: edema - Labs and Meds CBC 11/28/17 Range/Units 06:31 WBC 17.8 H (4.5-11.0) K/mm3 RBC 3.43 L (3.65-5.03) M/mm3 Hgb 10.8 (10.1-14.3) gm/dl Hct 35.6 (30.3-42.9) % Plt Count 251 (140-440) K/mm3 Comprehensive Metabolic Panel 11/28/17 Range/Units 06:31 Sodium 142 (137-145) mmol/L Potassium 3.3 L (3.6-5.0) mmol/L Chloride 91.2 L (98-107) mmol/L Carbon Dioxide 45 H* (22-30) mmol/L BUN 15 (7-17) mg/dL Creatinine 0.3 L (0.7-1.2) mg/dL Glucose 120 H (65-100) mg/dL Calcium 9.2 (8.4-10.2) mg/dL
--- NOTE | 2017-11-28 11:55 | Progress Note ---
Assessment and Plan 62 y/o female with hypercapnic respiratory failure, possible right lower lobe pneumonia and possible volume overload. 1. Continue broad spec abx therapy for now. CXR appears stable. Hold on lasix for now. 2. Agree with Bipap therapy PRN and QHS 3. BP control, afterload reduction 4. Echo shows depressed EF with normal right sided function and values. Cards following. 5. Start to wean steroids tomorrow, can switch to q8 dosing Subjective Date of service: 11/28/17 Principal diagnosis: respiratory failure Interval history: no acute events. had someone with perfume come in the room last night and this irritated her. Wore PPV last night. Breathing stable. BP remains elevated. Objective Vital Signs - 12hr 11/28/17 11/28/17 11/28/17 00:02 04:00 07:23 Temperature 98.0 F 97.8 F Pulse Rate 64 64 68 Pulse Rate [ Anterior Bilateral Throughout] Respiratory 17 18 18 Rate Respiratory Rate [Anterior Bilateral Throughout] Blood Pressure 158/77 Blood Pressure 151/73 [Right] O2 Sat by Pulse 98 95 Oximetry 11/28/17 11/28/17 11/28/17 08:00 08:08 10:11 Temperature Pulse Rate Pulse Rate [ 76 80 Anterior Bilateral Throughout] Respiratory 17 Rate Respiratory 16 16 Rate [Anterior Bilateral Throughout] Blood Pressure Blood Pressure [Right] O2 Sat by Pulse 93 Oximetry 11/28/17 11/28/17 10:14 10:16 Temperature Pulse Rate 84 84 Pulse Rate [ Anterior Bilateral Throughout] Respiratory Rate Respiratory Rate [Anterior Bilateral Throughout] Blood Pressure 158/77 158/77 Blood Pressure [Right] O2 Sat by Pulse Oximetry Constitutional: comatose (secondary to drugs) Eyes: non-icteric ENT: other (orally intubated and sedated) Neck: supple Effort: normal Ascultation: Bilateral: diminished breath sounds Percussion: Bilateral: not dull Cardiovascular: regular rate and rhythm Gastrointestinal: normoactive bowel sounds, soft, non-tender Extremities: no edema Neurologic: unable to assess CBC and BMP: 11/28/17 06:31 11/28/17 06:31 ABG, PT/INR, D-dimer: ABG POC ABG pH 7.418 (7.35-7.45) 11/26/17 06:44 POC ABG pCO2 83.8 (35-45) H 11/26/17 06:44 POC ABG pO2 67 (80-105) L 11/26/17 06:44 POC ABG HCO3 54.1 11/26/17 06:44 POC ABG Total CO2 > 50 11/26/17 06:44 POC ABG O2 Sat 92 11/26/17 06:44 PT/INR, D-dimer D-Dimer 207.14 ng/mlDDU (0-234) 11/24/17 12:41 Abnormal lab findings: Abnormal Labs 11/24/17 11/24/17 11/24/17 12:41 12:41 12:41 WBC 3.5 L RBC Hct 43.4 H MCV 108 H MCH 33 H Seg Neuts % (Manual) Lymphocytes % (Manual) Monocytes % (Manual) 10.0 H Nucleated RBC % 7.0 H Seg Neutrophils # Man 1.4 L Lymphocytes # (Manual) 0.8 L POC ABG pH POC ABG pCO2 POC ABG pO2 Sodium Potassium 3.5 L Chloride 93.5 L Carbon Dioxide 46 H* BUN Creatinine 0.3 L Glucose CK-MB (CK-2) 4.2 H CK-MB (CK-2) Rel Index 12.7 H NT-Pro-B Natriuret Pep 4859 H Total Protein Albumin 11/24/17 11/24/17 11/24/17 12:57 16:38 16:50 WBC RBC Hct MCV MCH Seg Neuts % (Manual) Lymphocytes % (Manual) Monocytes % (Manual) Nucleated RBC % Seg Neutrophils # Man Lymphocytes # (Manual) POC ABG pH 7.154 L 7.478 H 7.492 H POC ABG pCO2 > 130.0 H 70.6 H 67.6 H POC ABG pO2 62 L 50 L 50 L Sodium Potassium Chloride Carbon Dioxide BUN Creatinine Glucose CK-MB (CK-2) CK-MB (CK-2) Rel Index NT-Pro-B Natriuret Pep Total Protein Albumin 11/25/17 11/25/17 11/25/17 04:54 04:59 04:59 WBC RBC 3.61 L Hct MCV 105 H MCH 33 H Seg Neuts % (Manual) 39.0 L Lymphocytes % (Manual) 7.0 L Monocytes % (Manual) Nucleated RBC % 10.0 H Seg Neutrophils # Man Lymphocytes # (Manual) 0.5 L POC ABG pH 7.522 H POC ABG pCO2 59.3 H POC ABG pO2 Sodium 148 H Potassium Chloride 97.5 L Carbon Dioxide 42 H* BUN 19 H Creatinine 0.5 L D Glucose 126 H CK-MB (CK-2) CK-MB (CK-2) Rel Index NT-Pro-B Natriuret Pep Total Protein 4.7 L Albumin 2.7 L 11/26/17 11/26/17 11/26/17 06:44 09:39 09:39 WBC 11.6 H RBC 3.60 L Hct MCV 103 H MCH 33 H Seg Neuts % (Manual) Lymphocytes % (Manual) Monocytes % (Manual) Nucleated RBC % Seg Neutrophils # Man Lymphocytes # (Manual) POC ABG pH POC ABG pCO2 83.8 H POC ABG pO2 67 L Sodium 152 H Potassium 3.3 L Chloride Carbon Dioxide 44 H* BUN 29 H Creatinine 0.4 L Glucose 108 H CK-MB (CK-2) CK-MB (CK-2) Rel Index NT-Pro-B Natriuret Pep Total Protein Albumin 11/27/17 11/27/17 11/28/17 03:54 03:54 06:31 WBC 14.5 H 17.8 H RBC 3.32 L 3.43 L Hct MCV 104 H 104 H MCH Seg Neuts % (Manual) Lymphocytes % (Manual) Monocytes % (Manual) Nucleated RBC % Seg Neutrophils # Man Lymphocytes # (Manual) POC ABG pH POC ABG pCO2 POC ABG pO2 Sodium Potassium 3.1 L Chloride 91.7 L Carbon Dioxide 45 H* BUN 20 H Creatinine 0.3 L Glucose 144 H CK-MB (CK-2) CK-MB (CK-2) Rel Index NT-Pro-B Natriuret Pep Total Protein Albumin 11/28/17 06:31 WBC RBC Hct MCV MCH Seg Neuts % (Manual) Lymphocytes % (Manual) Monocytes % (Manual) Nucleated RBC % Seg Neutrophils # Man Lymphocytes # (Manual) POC ABG pH POC ABG pCO2 POC ABG pO2 Sodium Potassium 3.3 L Chloride 91.2 L Carbon Dioxide 45 H* BUN Creatinine 0.3 L Glucose 120 H CK-MB (CK-2) CK-MB (CK-2) Rel Index NT-Pro-B Natriuret Pep Total Protein Albumin
[2017-11-29] MEDS: ZOSYN/NS 4.5GM/100ML 4.5 GM/100 ML VIAL IV SCH (05:28)
[2017-11-29] MEDS: VANCOMYCIN 750 MG in NACL 0.9% 250ML 250 ML IV SCH (05:37)
[2017-11-29 06:42] LABS: Hematocrit 34.3 % (30.3-42.9); Hemoglobin 10.9 gm/dl (10.1-14.3); Mean Corpuscular HGB Conc 32 % (30-34); Mean Corpuscular Hemoglobin 33 pg (28-32); Mean Corpuscular Volume 103 fl (79-97); Platelet Count 260 K/mm3 (140-440); Red Blood Count 3.32 M/mm3 (3.65-5.03); Red Cell Distribution Width 13.8 % (13.2-15.2)
[2017-11-29 07:10] LABS: BUN/Creatinine Ratio 65; Blood Urea Nitrogen 13 mg/dL (7-17); Calcium 8.7 mg/dL (8.4-10.2); Hemolysis Index 4
[2017-11-29] MEDS: PROVENTIL IH SCH ×4 (08:21→20:07)
--- NOTE | 2017-11-29 09:35 | Progress Note ---
Assessment and Plan Pneumonia Hypercapneic respiratory failure s/p extubation Acute systolic heart failure EF 40-45% by echo Hx of COPD/Asthma Hypernatremia Systemic Hypertension Subjective Date of service: 11/29/17 Principal diagnosis: respiratory failure Interval history: Patient is sitting up in bedside chair and reports she is feeling better. She denies chest pain. Objective Vital Signs Temp Pulse Pulse Pulse Resp Resp Resp 11/29/17 07:34 98.0 F 66 18 11/29/17 03:41 97.8 F 51 L 20 11/29/17 00:37 97.6 F 58 L 22 11/29/17 00:03 64 17 11/28/17 22:00 76 11/28/17 20:37 75 16 11/28/17 20:27 81 16 11/28/17 20:00 97.9 F 85 20 11/28/17 16:12 70 16 11/28/17 16:04 68 16 11/28/17 15:51 97.9 F 80 18 11/28/17 12:09 70 18 11/28/17 12:02 72 18 11/28/17 11:07 98.3 F 73 18 11/28/17 10:16 84 11/28/17 10:14 84 11/28/17 10:11 17 11/28/17 10:00 68 89 18 17 BP BP Pulse Ox 11/29/17 07:34 155/78 93 11/29/17 03:41 158/75 100 11/29/17 00:37 163/64 99 11/29/17 00:03 100 11/28/17 22:00 166/61 95 11/28/17 20:37 11/28/17 20:27 97 11/28/17 20:00 166/61 95 11/28/17 16:12 11/28/17 16:04 11/28/17 15:51 162/80 95 11/28/17 12:09 11/28/17 12:02 11/28/17 11:07 158/61 93 11/28/17 10:16 158/77 11/28/17 10:14 158/77 11/28/17 10:11 11/28/17 10:00 95 - Physical Examination General: No Apparent Distress HEENT: Positive: PERRL Cardiac: Positive: Reg Rate and Rhythm Neuro: Positive: Grossly Intact Extremities: Absent: edema - Labs and Meds CBC 11/29/17 Range/Units 06:11 WBC 20.3 H (4.5-11.0) K/mm3 RBC 3.32 L (3.65-5.03) M/mm3 Hgb 10.9 (10.1-14.3) gm/dl Hct 34.3 (30.3-42.9) % Plt Count 260 (140-440) K/mm3 Comprehensive Metabolic Panel 11/29/17 Range/Units 06:11 Sodium 155 H D (137-145) mmol/L Potassium 3.2 L (3.6-5.0) mmol/L Chloride 99.2 (98-107) mmol/L Carbon Dioxide 48 H* (22-30) mmol/L BUN 13 (7-17) mg/dL Creatinine 0.2 L (0.7-1.2) mg/dL Glucose 110 H (65-100) mg/dL Calcium 8.7 (8.4-10.2) mg/dL
[2017-11-29] MEDS: TYLENOL PO PRN ×2 (09:52→19:50)
[2017-11-29] MEDS: SODIUM CHLORIDE FLUSH SYRINGE 10 ML IV SCH ×3 (09:52→21:38)
[2017-11-29] MEDS: PROTONIX PO SCH (09:53)
[2017-11-29] MEDS: COREG PO SCH ×2 (09:53→21:37)
[2017-11-29] MEDS: ZESTRIL PO SCH (09:54)
[2017-11-29] MEDS: LOVENOX SUB-Q SCH (09:55)
--- NOTE | 2017-11-29 12:33 | Progress Note ---
Assessment and Plan Assessment and plan: Ms. Torres is a 62 yo woman with history of chronic respiratory failure on 3L home O2 due to end stage COPD and prior tobacco dependency pw SOB. She was recently admitted in October with similar presentation. She failed bipap therapy per ED report and was electively intubated. pCXR reported as Bilateral pneumonias and possible pleural fluid, right more than left and greatest towards the bases, representing worsening since October 2017 , as described. 11/25/17 2D ECHO reported as left ventricular chamber size is mildy dilated, mild concentric LVH, global lv systolic function is mildly decreased, est EF 40-45%, trace AR, RVSP is normal -Acute on chronc hypercapneic respiratory failure: off bipap, pulm is following -Acute bilateral Aspiration pneumonitis with sepsis, poa: IV abx, follow up sputum ctx and blood cultures -AE COPD: iv steroids, neb, iv abx -Acute combined heart failure: Echo and treat with iv lasix==>consulted cardiology, will need ischemic evaluation prior to discharge -Severe malnutrition, poa: consult [facility] -DVT prophylaxis: sq lovenox Repleted potassium stress test once breathing is better History Interval history: Patient was seen and examined. Follow-up on current diagnosis of sob, off bipap during better, on nasal canula o2. Overnight uneventful. Patient denies any chest pain, nausea/vomiting or severe headaches. Imaging, nursing note, chart, labs and old chart reviewed. Discussed with patient. Hospitalist Physical - Physical exam Narrative exam: GEN: cachetic,nad a/o x 3, bmi 17 HEENT: NCAT, EOMI, PERRL, OP clear NECK: supple, no adenopathy, no thyromegaly, no JVD CVS/HEART: RRR, normal S1S2, pulses present bilaterally CHEST/LUNGS: right base crackles, diminished bs bilateral, Symmetrical chest expansion, good air entry bilaterally GI/Abdomen: soft, NTND, good bowel sounds, no guarding or rebound /Bladder: no suprapubic tenderness, no CVA or paraspinal tenderness EXT/Skin: no c/c/e, no obvious rash MSK: from x 4 Neuro: CN 2-12 grossly intact, no focal deficit Psych: calm - Constitutional Vitals: Temp Pulse Resp BP Pulse Ox 98.4 F 73 18 170/81 94 11/29/17 11:51 11/29/17 11:51 11/29/17 11:51 11/29/17 11:51 11/29/17 11:51 General appearance: Present: no acute distress Results - Labs CBC & Chem 7: 11/29/17 06:11 11/29/17 06:11 Labs: Laboratory Last Values WBC 20.3 K/mm3 (4.5-11.0) H 11/29/17 06:11 RBC 3.32 M/mm3 (3.65-5.03) L 11/29/17 06:11 Hgb 10.9 gm/dl (10.1-14.3) 11/29/17 06:11 Hct 34.3 % (30.3-42.9) 11/29/17 06:11 MCV 103 fl (79-97) H 11/29/17 06:11 MCH 33 pg (28-32) H 11/29/17 06:11 MCHC 32 % (30-34) 11/29/17 06:11 RDW 13.8 % (13.2-15.2) 11/29/17 06:11 Plt Count 260 K/mm3 (140-440) 11/29/17 06:11 Add Manual Diff Complete 11/25/17 04:59 Total Counted 100 11/25/17 04:59 Seg Neuts % (Manual) 39.0 % (40.0-70.0) L 11/25/17 04:59 Band Neutrophils % 45.0 % 11/25/17 04:59 Lymphocytes % (Manual) 7.0 % (13.4-35.0) L 11/25/17 04:59 Reactive Lymphs % (Man) 0 % 11/25/17 04:59 Monocytes % (Manual) 5.0 % (0.0-7.3) 11/25/17 04:59 Eosinophils % (Manual) 0 % (0.0-4.3) 11/25/17 04:59 Basophils % (Manual) 0 % (0.0-1.8) 11/25/17 04:59 Metamyelocytes % 4.0 % 11/25/17 04:59 Myelocytes % 0 % 11/25/17 04:59 Promyelocytes % 0 % 11/25/17 04:59 Blast Cells % 0 % 11/25/17 04:59 Nucleated RBC % 10.0 % (0.0-0.9) H 11/25/17 04:59 Seg Neutrophils # Man 2.9 K/mm3 (1.8-7.7) 11/25/17 04:59 Band Neutrophils # 3.3 K/mm3 11/25/17 04:59 Lymphocytes # (Manual) 0.5 K/mm3 (1.2-5.4) L 11/25/17 04:59 Abs React Lymphs (Man) 0.0 K/mm3 11/25/17 04:59 Monocytes # (Manual) 0.4 K/mm3 (0.0-0.8) 11/25/17 04:59 Eosinophils # (Manual) 0.0 K/mm3 (0.0-0.4) 11/25/17 04:59 Basophils # (Manual) 0.0 K/mm3 (0.0-0.1) 11/25/17 04:59 Metamyelocytes # 0.3 K/mm3 11/25/17 04:59 Myelocytes # 0.0 K/mm3 11/25/17 04:59 Promyelocytes # 0.0 K/mm3 11/25/17 04:59 Blast Cells # 0.0 K/mm3 11/25/17 04:59 WBC Morphology Not Reportable 11/25/17 04:59 Hypersegmented Neuts Not Reportable 11/25/17 04:59 Hyposegmented Neuts Not Reportable 11/25/17 04:59 Hypogranular Neuts Not Reportable 11/25/17 04:59 Smudge Cells Not Reportable 11/25/17 04:59 Toxic Granulation Not Reportable 11/25/17 04:59 Toxic Vacuolation Not Reportable 11/25/17 04:59 Dohle Bodies Few 11/25/17 04:59 Pelger-Huet Anomaly Not Reportable 11/25/17 04:59 Lindsay Rods Not Reportable 11/25/17 04:59 Platelet Estimate Appears normal 11/25/17 04:59 Clumped Platelets Not Reportable 11/25/17 04:59 Plt Clumps, EDTA Not Reportable 11/25/17 04:59 Large Platelets Few 11/25/17 04:59 Giant Platelets Not Reportable 11/25/17 04:59 Platelet Satelliting Not Reportable 11/25/17 04:59 Plt Morphology Comment Not Reportable 11/25/17 04:59 RBC Morphology Not Reportable 11/25/17 04:59 Dimorphic RBCs Not Reportable 11/25/17 04:59 Polychromasia Not Reportable 11/25/17 04:59 Hypochromasia 1+ 11/25/17 04:59 Poikilocytosis Not Reportable 11/25/17 04:59 Anisocytosis 1+ 11/25/17 04:59 Microcytosis Not Reportable 11/25/17 04:59 Macrocytosis Not Reportable 11/25/17 04:59 Spherocytes Not Reportable 11/25/17 04:59 Pappenheimer Bodies Not Reportable 11/25/17 04:59 Sickle Cells Not Reportable 11/25/17 04:59 Target Cells Not Reportable 11/25/17 04:59 Tear Drop Cells Not Reportable 11/25/17 04:59 Ovalocytes Not Reportable 11/25/17 04:59 Stomatocytes 1+ 11/25/17 04:59 Helmet Cells Not Reportable 11/25/17 04:59 Beltran-[place] Bodies Not Reportable 11/25/17 04:59 Nipomo Rings Not Reportable 11/25/17 04:59 Tanja Cells Not Reportable 11/25/17 04:59 Bite Cells Not Reportable 11/25/17 04:59 Crenated Cell Not Reportable 11/25/17 04:59 Elliptocytes Not Reportable 11/25/17 04:59 Acanthocytes (Spur) Not Reportable 11/25/17 04:59 Rouleaux Not Reportable 11/25/17 04:59 Hemoglobin C Crystals Not Reportable 11/25/17 04:59 Schistocytes Not Reportable 11/25/17 04:59 Malaria parasites Not Reportable 11/25/17 04:59 Emerson Bodies Not Reportable 11/25/17 04:59 Hem Pathologist Commnt No 11/25/17 04:59 D-Dimer 207.14 ng/mlDDU (0-234) 11/24/17 12:41 POC ABG pH 7.418 (7.35-7.45) 11/26/17 06:44 POC ABG pCO2 83.8 (35-45) H 11/26/17 06:44 POC ABG pO2 67 (80-105) L 11/26/17 06:44 POC ABG HCO3 54.1 11/26/17 06:44 POC ABG Total CO2 > 50 11/26/17 06:44 POC ABG O2 Sat 92 11/26/17 06:44 POC ABG Base Excess 30 11/26/17 06:44 FiO2 40 % 11/26/17 06:44 Sodium 155 mmol/L (137-145) H D 11/29/17 06:11 Potassium 3.2 mmol/L (3.6-5.0) L 11/29/17 06:11 Chloride 99.2 mmol/L (98-107) 11/29/17 06:11 Carbon Dioxide 48 mmol/L (22-30) H* 11/29/17 06:11 Anion Gap 11 mmol/L 11/29/17 06:11 BUN 13 mg/dL (7-17) 11/29/17 06:11 Creatinine 0.2 mg/dL (0.7-1.2) L 11/29/17 06:11 Estimated GFR > 60 ml/min 11/29/17 06:11 BUN/Creatinine Ratio 65 % 11/29/17 06:11 Glucose 110 mg/dL (65-100) H 11/29/17 06:11 Hemoglobin A1c 5.5 % (4-6) 11/24/17 16:26 Calcium 8.7 mg/dL (8.4-10.2) 11/29/17 06:11 Phosphorus 3.60 mg/dL (2.5-4.5) 11/26/17 09:39 Magnesium 1.90 mg/dL (1.7-2.3) 11/28/17 06:31 Total Bilirubin 0.30 mg/dL (0.1-1.2) 11/25/17 04:59 AST 11 units/L (5-40) 11/25/17 04:59 ALT 13 units/L (7-56) 11/25/17 04:59 Alkaline Phosphatase 62 units/L (35-129) 11/25/17 04:59 Total Creatine Kinase 33 units/L (30-135) 11/24/17 12:41 CK-MB (CK-2) 4.2 ng/mL (0.0-4.0) H 11/24/17 12:41 CK-MB (CK-2) Rel Index 12.7 (0-4) H 11/24/17 12:41 Troponin T < 0.010 ng/mL (0.00-0.029) 11/24/17 12:41 NT-Pro-B Natriuret Pep 4859 pg/mL (0-900) H 11/24/17 12:41 Total Protein 4.7 g/dL (6.3-8.2) L 11/25/17 04:59 Albumin 2.7 g/dL (3.9-5) L 11/25/17 04:59 Albumin/Globulin Ratio 1.4 % 11/25/17 04:59 Urine Color Yellow (Yellow) 11/24/17 Unknown Urine Turbidity Clear (Clear) 11/24/17 Unknown Urine pH 5.0 (5.0-7.0) 11/24/17 Unknown Ur Specific Rebuck 1.017 (1.003-1.030) 11/24/17 Unknown Urine Protein 100 mg/dl mg/dL (Negative) 11/24/17 Unknown Urine Glucose (UA) Neg mg/dL (Negative) 11/24/17 Unknown Urine Ketones Tr mg/dL (Negative) 11/24/17 Unknown Urine Blood Sm (Negative) 11/24/17 Unknown Urine Nitrite Neg (Negative) 11/24/17 Unknown Urine Bilirubin Neg (Negative) 11/24/17 Unknown Urine Urobilinogen < 2.0 mg/dL (<2.0) 11/24/17 Unknown Ur Leukocyte Esterase Neg (Negative) 11/24/17 Unknown Urine WBC (Auto) 4.0 /HPF (0.0-6.0) 11/24/17 Unknown Urine RBC (Auto) 15.0 /HPF (0.0-6.0) 11/24/17 Unknown Urine Bacteria (Auto) 1+ /HPF (Negative) 11/24/17 Unknown Urine Mucus Few /HPF 11/24/17 Unknown Vancomycin Trough 9.2 ug/mL (5.0-20.0) 11/28/17 06:31
--- NOTE | 2017-11-29 13:41 | Progress Note ---
Assessment and Plan Imp: 1. Pneumonia 2/2 H.flu 2. COPD exac. 3. Sepsis 4. A/C respiratory failure, hypoxia & hypercapnea Rec: 1. Change to Rocephin monotherapy to cover the H.flu in her sputum 2. Taper Solumedrol 3. PT/mobilize/ambulate 4. Avoid Lasix if possible, due to elevated bicarb Plan of care reviewed with patient, she understands/agrees Subjective Date of service: 11/29/17 Principal diagnosis: respiratory failure Interval history: No events. Awake, alert. On NC. SOB improving. Coughing up yellow/red sputum, stable. Active Medications Acetaminophen (Tylenol) 650 mg PO Q4H PRN PRN Reason: Pain MILD(1-3)/Fever >100.5/PÉREZ Last Admin: 11/29/17 09:52 Dose: 650 mg Albuterol (Proventil) 2.5 mg IH QIDRT [facility] Last Admin: 11/29/17 11:38 Dose: 2.5 mg Carvedilol (Coreg) 6.25 mg PO BID [facility] Last Admin: 11/29/17 09:53 Dose: 6.25 mg Enoxaparin Sodium (Lovenox) 40 mg SUB-Q QDAY [facility] Last Admin: 11/29/17 09:55 Dose: 40 mg Ceftriaxone Sodium (Rocephin/Ns 1 Gm/50 Ml) 1 gm in 50 mls @ 100 mls/hr IV Q24HR [facility]; Protocol Lisinopril (Zestril) 5 mg PO QDAY [facility] Last Admin: 11/29/17 09:54 Dose: 5 mg Methylprednisolone Sodium Succinate (Solu-Medrol) 40 mg IV Q8HR [facility] Ondansetron HCl (Zofran) 4 mg IV Q8H PRN PRN Reason: Nausea And Vomiting Pantoprazole Sodium (Protonix) 40 mg PO QDAY [facility] Last Admin: 11/29/17 09:53 Dose: 40 mg Sodium Chloride (Sodium Chloride Flush Syringe 10 Ml) 10 ml IV BID [facility] Last Admin: 11/29/17 12:17 Dose: 10 ml Objective Vital Signs - 12hr 11/29/17 11/29/17 11/29/17 03:41 07:34 08:21 Temperature 97.8 F 98.0 F Pulse Rate 51 L 66 Pulse Rate [ 61 Anterior Bilateral Throughout] Respiratory 20 18 Rate Respiratory 18 Rate [Anterior Bilateral Throughout] Blood Pressure 158/75 155/78 O2 Sat by Pulse 100 93 97 Oximetry 11/29/17 11/29/17 11/29/17 08:31 09:53 09:54 Temperature Pulse Rate 90 90 Pulse Rate [ 63 Anterior Bilateral Throughout] Respiratory Rate Respiratory 18 Rate [Anterior Bilateral Throughout] Blood Pressure O2 Sat by Pulse Oximetry 11/29/17 11/29/17 11/29/17 11:38 11:48 11:51 Temperature 98.4 F Pulse Rate 73 Pulse Rate [ 82 67 Anterior Bilateral Throughout] Respiratory 18 Rate Respiratory 20 20 Rate [Anterior Bilateral Throughout] Blood Pressure 170/81 O2 Sat by Pulse 94 Oximetry Constitutional: no acute distress, alert Eyes: non-icteric ENT: oropharynx moist Neck: supple Effort: mildly labored Ascultation: Bilateral: diminished breath sounds, wheezes Cardiovascular: regular rate and rhythm (no mrg) Gastrointestinal: normoactive bowel sounds, soft, non-tender Integumentary: normal Extremities: no edema Neurologic: normal mental status, non-focal exam, pupils equal and round, CN II- XII normal Psychiatric: mood appropriate, affect normal CBC and BMP: 11/29/17 06:11 11/29/17 06:11 ABG, PT/INR, D-dimer: ABG POC ABG pH 7.418 (7.35-7.45) 11/26/17 06:44 POC ABG pCO2 83.8 (35-45) H 11/26/17 06:44 POC ABG pO2 67 (80-105) L 11/26/17 06:44 POC ABG HCO3 54.1 11/26/17 06:44 POC ABG Total CO2 > 50 11/26/17 06:44 POC ABG O2 Sat 92 11/26/17 06:44 PT/INR, D-dimer D-Dimer 207.14 ng/mlDDU (0-234) 11/24/17 12:41 Abnormal lab findings: Abnormal Labs 11/24/17 11/24/17 11/24/17 12:41 12:41 12:41 WBC 3.5 L RBC Hct 43.4 H MCV 108 H MCH 33 H Seg Neuts % (Manual) Lymphocytes % (Manual) Monocytes % (Manual) 10.0 H Nucleated RBC % 7.0 H Seg Neutrophils # Man 1.4 L Lymphocytes # (Manual) 0.8 L POC ABG pH POC ABG pCO2 POC ABG pO2 Sodium Potassium 3.5 L Chloride 93.5 L Carbon Dioxide 46 H* BUN Creatinine 0.3 L Glucose CK-MB (CK-2) 4.2 H CK-MB (CK-2) Rel Index 12.7 H NT-Pro-B Natriuret Pep 4859 H Total Protein Albumin 11/24/17 11/24/17 11/24/17 12:57 16:38 16:50 WBC RBC Hct MCV MCH Seg Neuts % (Manual) Lymphocytes % (Manual) Monocytes % (Manual) Nucleated RBC % Seg Neutrophils # Man Lymphocytes # (Manual) POC ABG pH 7.154 L 7.478 H 7.492 H POC ABG pCO2 > 130.0 H 70.6 H 67.6 H POC ABG pO2 62 L 50 L 50 L Sodium Potassium Chloride Carbon Dioxide BUN Creatinine Glucose CK-MB (CK-2) CK-MB (CK-2) Rel Index NT-Pro-B Natriuret Pep Total Protein Albumin 11/25/17 11/25/17 11/25/17 04:54 04:59 04:59 WBC RBC 3.61 L Hct MCV 105 H MCH 33 H Seg Neuts % (Manual) 39.0 L Lymphocytes % (Manual) 7.0 L Monocytes % (Manual) Nucleated RBC % 10.0 H Seg Neutrophils # Man Lymphocytes # (Manual) 0.5 L POC ABG pH 7.522 H POC ABG pCO2 59.3 H POC ABG pO2 Sodium 148 H Potassium Chloride 97.5 L Carbon Dioxide 42 H* BUN 19 H Creatinine 0.5 L D Glucose 126 H CK-MB (CK-2) CK-MB (CK-2) Rel Index NT-Pro-B Natriuret Pep Total Protein 4.7 L Albumin 2.7 L 11/26/17 11/26/17 11/26/17 06:44 09:39 09:39 WBC 11.6 H RBC 3.60 L Hct MCV 103 H MCH 33 H Seg Neuts % (Manual) Lymphocytes % (Manual) Monocytes % (Manual) Nucleated RBC % Seg Neutrophils # Man Lymphocytes # (Manual) POC ABG pH POC ABG pCO2 83.8 H POC ABG pO2 67 L Sodium 152 H Potassium 3.3 L Chloride Carbon Dioxide 44 H* BUN 29 H Creatinine 0.4 L Glucose 108 H CK-MB (CK-2) CK-MB (CK-2) Rel Index NT-Pro-B Natriuret Pep Total Protein Albumin 11/27/17 11/27/17 11/28/17 03:54 03:54 06:31 WBC 14.5 H 17.8 H RBC 3.32 L 3.43 L Hct MCV 104 H 104 H MCH Seg Neuts % (Manual) Lymphocytes % (Manual) Monocytes % (Manual) Nucleated RBC % Seg Neutrophils # Man Lymphocytes # (Manual) POC ABG pH POC ABG pCO2 POC ABG pO2 Sodium Potassium 3.1 L Chloride 91.7 L Carbon Dioxide 45 H* BUN 20 H Creatinine 0.3 L Glucose 144 H CK-MB (CK-2) CK-MB (CK-2) Rel Index NT-Pro-B Natriuret Pep Total Protein Albumin 11/28/17 11/29/17 11/29/17 06:31 06:11 06:11 WBC 20.3 H RBC 3.32 L Hct MCV 103 H MCH 33 H Seg Neuts % (Manual) Lymphocytes % (Manual) Monocytes % (Manual) Nucleated RBC % Seg Neutrophils # Man Lymphocytes # (Manual) POC ABG pH POC ABG pCO2 POC ABG pO2 Sodium 155 H D Potassium 3.3 L 3.2 L Chloride 91.2 L Carbon Dioxide 45 H* 48 H* BUN Creatinine 0.3 L 0.2 L Glucose 120 H 110 H CK-MB (CK-2) CK-MB (CK-2) Rel Index NT-Pro-B Natriuret Pep Total Protein Albumin Chest x-ray: report reviewed, image reviewed
[2017-11-29] MEDS ORDERED: ROCEPHIN/NS 1 GM/50 ML 1 GM/50 ML BAG IV SCH (14:00)
[2017-11-29] MEDS: cefTRIAXone 1 GM in NACL 0.9% 20 ML IV SCH (17:30)
[2017-11-30] MEDS ORDERED: APRESOLINE IV PRN (01:03)
[2017-11-30] MEDS: TYLENOL PO PRN (01:07)
[2017-11-30] MEDS: PROVENTIL IH SCH ×3 (08:16→21:19)
--- NOTE | 2017-11-30 09:20 | Progress Note ---
Assessment and Plan RLL Pneumonia Hypercapneic respiratory failure s/p extubation Acute systolic heart failure EF 40-45% by echo Hx of COPD/Asthma Hypernatremia Systemic Hypertension Recommend: Outpatient follow-up with stress testing for mild cardiomyopathy, once acute pulmonary infection has resolved. Subjective Date of service: 11/30/17 Principal diagnosis: respiratory failure Interval history: Patient has no cardiac complaints. Objective Vital Signs Temp Pulse Pulse Resp Resp BP Pulse Ox 11/30/17 03:31 97.9 F 77 18 166/84 96 11/30/17 00:04 98.1 F 76 18 191/90 90 11/30/17 00:00 64 18 100 11/29/17 22:00 92 H 11/29/17 20:17 91 H 17 11/29/17 20:12 94 11/29/17 20:07 90 18 11/29/17 19:20 98.2 F 93 H 18 181/74 92 11/29/17 17:00 86 20 11/29/17 16:49 75 18 11/29/17 15:54 97.9 F 74 81 H 180/77 95 11/29/17 11:51 98.4 F 73 18 170/81 94 11/29/17 11:48 67 20 11/29/17 11:38 82 20 11/29/17 09:54 90 11/29/17 09:53 90 - Physical Examination General: No Apparent Distress HEENT: Positive: PERRL Cardiac: Positive: Reg Rate and Rhythm Neuro: Positive: Grossly Intact Extremities: Absent: edema
[2017-11-30] MEDS: PROTONIX PO SCH (10:03)
[2017-11-30] MEDS: COREG PO SCH ×2 (10:03→22:05)
[2017-11-30] MEDS: ZESTRIL PO SCH (10:03)
[2017-11-30] MEDS: LOVENOX SUB-Q SCH (10:04)
[2017-11-30] MEDS: cefTRIAXone 1 GM in NACL 0.9% 20 ML IV SCH (10:19)
[2017-11-30] MEDS: SODIUM CHLORIDE FLUSH SYRINGE 10 ML IV SCH ×2 (10:20→22:08)
[2017-11-30 11:00] LABS: Hemoglobin 13.6 gm/dl (10.1-14.3); Mean Corpuscular HGB Conc 31 % (30-34); Mean Corpuscular Hemoglobin 33 pg (28-32); Mean Corpuscular Volume 104 fl (79-97); Platelet Count 324 K/mm3 (140-440); Red Blood Count 4.17 M/mm3 (3.65-5.03); Red Cell Distribution Width 13.9 % (13.2-15.2)
[2017-11-30 11:16] LABS: Hematocrit 43.3 % (30.3-42.9)
[2017-11-30 11:23] LABS: BUN/Creatinine Ratio 27; Blood Urea Nitrogen 8 mg/dL (7-17); Calcium 9.2 mg/dL (8.4-10.2); Hemolysis Index 8
[2017-11-30 13:23] LABS: Hematocrit 39.9 % (30.3-42.9); Hemoglobin 12.3 gm/dl (10.1-14.3)
[2017-11-30 14:00] LABS: Blood Urea Nitrogen 9 mg/dL (7-17); Calcium 8.7 mg/dL (8.4-10.2); Hemolysis Index 8
[2017-11-30] MEDS ORDERED: K-DUR PO ONE (14:00)
--- NOTE | 2017-11-30 14:07 | Progress Note ---
Assessment and Plan Imp: 1. Pneumonia 2/2 H.flu 2. COPD exac. 3. Sepsis 4. A/C respiratory failure, hypoxia & hypercapnea 5. Hypokalemia Rec: 1. Changed to Rocephin monotherapy to cover the H.flu in her sputum; would complete a course of Omnicef 300mg BID x 10 total days of ABX at d/c; needs f/u CXR to ensure clearance of infiltrates; will repeat in AM if she is still here 2. Taper Solumedrol again; prolonged prednisone taper needed at d/c 3. PT/mobilize/ambulate 4. Avoid Lasix if possible, due to elevated bicarb and low K 5. Patient with severe hypokalemia; recommend correcting prior to d/c -> ordered Plan of care reviewed with patient, she understands/agrees Subjective Date of service: 11/30/17 Principal diagnosis: respiratory failure Interval history: No events. Awake, alert. On NC. SOB improving. Coughing up brown sputum, better. Active Medications Acetaminophen (Tylenol) 650 mg PO Q4H PRN PRN Reason: Pain MILD(1-3)/Fever >100.5/PÉREZ Last Admin: 11/30/17 01:07 Dose: 650 mg Albuterol (Proventil) 2.5 mg IH QIDRT [facility] Last Admin: 11/30/17 08:16 Dose: 2.5 mg Carvedilol (Coreg) 6.25 mg PO BID [facility] Enoxaparin Sodium (Lovenox) 40 mg SUB-Q QDAY [facility] Last Admin: 11/30/17 10:04 Dose: 40 mg Hydralazine HCl (Apresoline) 5 mg IV Q6H PRN PRN Reason: Blood Pressure Last Admin: 11/30/17 01:19 Dose: 5 mg Ceftriaxone Sodium 1 gm/ (Sodium Chloride) 20 mls @ 2 mls/min IV Q24HR [facility] Last Admin: 11/30/17 10:19 Dose: 2 mls/min Potassium Chloride (Kcl 10meq/100ml) 10 meq in 100 mls @ 100 mls/hr IV Q1H [facility] Stop: 11/30/17 18:59 Lisinopril (Zestril) 5 mg PO QDAY [facility] Last Admin: 11/30/17 10:03 Dose: 5 mg Methylprednisolone Sodium Succinate (Solu-Medrol) 20 mg IV Q8HR [facility] Ondansetron HCl (Zofran) 4 mg IV Q8H PRN PRN Reason: Nausea And Vomiting Pantoprazole Sodium (Protonix) 40 mg PO QDAY [facility] Last Admin: 11/30/17 10:03 Dose: 40 mg Potassium Chloride (K-Dur) 40 meq PO ONCE ONE Stop: 11/30/17 14:01 Sodium Chloride (Sodium Chloride Flush Syringe 10 Ml) 10 ml IV BID [facility] Last Admin: 11/30/17 10:20 Dose: 10 ml Objective Vital Signs - 12hr 11/30/17 11/30/17 11/30/17 03:31 08:32 09:18 Temperature 97.9 F 98.6 F Pulse Rate 77 81 Respiratory 18 20 19 Rate Blood Pressure 166/84 166/79 O2 Sat by Pulse 96 91 Oximetry 11/30/17 10:03 Temperature Pulse Rate 81 Respiratory Rate Blood Pressure 166/79 O2 Sat by Pulse Oximetry Constitutional: no acute distress, alert Eyes: non-icteric ENT: oropharynx moist Neck: supple Effort: normal Ascultation: Bilateral: clear Cardiovascular: regular rate and rhythm (no mrg) Gastrointestinal: normoactive bowel sounds, soft, non-tender Integumentary: normal Extremities: no cyanosis, no edema, pink and warm Neurologic: normal mental status, non-focal exam, pupils equal and round, CN II- XII normal Psychiatric: mood appropriate, affect normal CBC and BMP: 11/30/17 12:17 11/30/17 12:17 ABG, PT/INR, D-dimer: ABG POC ABG pH 7.418 (7.35-7.45) 11/26/17 06:44 POC ABG pCO2 83.8 (35-45) H 11/26/17 06:44 POC ABG pO2 67 (80-105) L 11/26/17 06:44 POC ABG HCO3 54.1 11/26/17 06:44 POC ABG Total CO2 > 50 11/26/17 06:44 POC ABG O2 Sat 92 11/26/17 06:44 PT/INR, D-dimer D-Dimer 207.14 ng/mlDDU (0-234) 11/24/17 12:41 Abnormal lab findings: Abnormal Labs 11/24/17 11/24/17 11/24/17 12:41 12:41 12:41 WBC 3.5 L RBC Hct 43.4 H MCV 108 H MCH 33 H Seg Neuts % (Manual) Lymphocytes % (Manual) Monocytes % (Manual) 10.0 H Nucleated RBC % 7.0 H Seg Neutrophils # Man 1.4 L Lymphocytes # (Manual) 0.8 L POC ABG pH POC ABG pCO2 POC ABG pO2 Sodium Potassium 3.5 L Chloride 93.5 L Carbon Dioxide 46 H* BUN Creatinine 0.3 L Glucose CK-MB (CK-2) 4.2 H CK-MB (CK-2) Rel Index 12.7 H NT-Pro-B Natriuret Pep 4859 H Total Protein Albumin 11/24/17 11/24/17 11/24/17 12:57 16:38 16:50 WBC RBC Hct MCV MCH Seg Neuts % (Manual) Lymphocytes % (Manual) Monocytes % (Manual) Nucleated RBC % Seg Neutrophils # Man Lymphocytes # (Manual) POC ABG pH 7.154 L 7.478 H 7.492 H POC ABG pCO2 > 130.0 H 70.6 H 67.6 H POC ABG pO2 62 L 50 L 50 L Sodium Potassium Chloride Carbon Dioxide BUN Creatinine Glucose CK-MB (CK-2) CK-MB (CK-2) Rel Index NT-Pro-B Natriuret Pep Total Protein Albumin 11/25/17 11/25/17 11/25/17 04:54 04:59 04:59 WBC RBC 3.61 L Hct MCV 105 H MCH 33 H Seg Neuts % (Manual) 39.0 L Lymphocytes % (Manual) 7.0 L Monocytes % (Manual) Nucleated RBC % 10.0 H Seg Neutrophils # Man Lymphocytes # (Manual) 0.5 L POC ABG pH 7.522 H POC ABG pCO2 59.3 H POC ABG pO2 Sodium 148 H Potassium Chloride 97.5 L Carbon Dioxide 42 H* BUN 19 H Creatinine 0.5 L D Glucose 126 H CK-MB (CK-2) CK-MB (CK-2) Rel Index NT-Pro-B Natriuret Pep Total Protein 4.7 L Albumin 2.7 L 11/26/17 11/26/17 11/26/17 06:44 09:39 09:39 WBC 11.6 H RBC 3.60 L Hct MCV 103 H MCH 33 H Seg Neuts % (Manual) Lymphocytes % (Manual) Monocytes % (Manual) Nucleated RBC % Seg Neutrophils # Man Lymphocytes # (Manual) POC ABG pH POC ABG pCO2 83.8 H POC ABG pO2 67 L Sodium 152 H Potassium 3.3 L Chloride Carbon Dioxide 44 H* BUN 29 H Creatinine 0.4 L Glucose 108 H CK-MB (CK-2) CK-MB (CK-2) Rel Index NT-Pro-B Natriuret Pep Total Protein Albumin 11/27/17 11/27/17 11/28/17 03:54 03:54 06:31 WBC 14.5 H 17.8 H RBC 3.32 L 3.43 L Hct MCV 104 H 104 H MCH Seg Neuts % (Manual) Lymphocytes % (Manual) Monocytes % (Manual) Nucleated RBC % Seg Neutrophils # Man Lymphocytes # (Manual) POC ABG pH POC ABG pCO2 POC ABG pO2 Sodium Potassium 3.1 L Chloride 91.7 L Carbon Dioxide 45 H* BUN 20 H Creatinine 0.3 L Glucose 144 H CK-MB (CK-2) CK-MB (CK-2) Rel Index NT-Pro-B Natriuret Pep Total Protein Albumin 11/28/17 11/29/17 11/29/17 06:31 06:11 06:11 WBC 20.3 H RBC 3.32 L Hct MCV 103 H MCH 33 H Seg Neuts % (Manual) Lymphocytes % (Manual) Monocytes % (Manual) Nucleated RBC % Seg Neutrophils # Man Lymphocytes # (Manual) POC ABG pH POC ABG pCO2 POC ABG pO2 Sodium 155 H D Potassium 3.3 L 3.2 L Chloride 91.2 L Carbon Dioxide 45 H* 48 H* BUN Creatinine 0.3 L 0.2 L Glucose 120 H 110 H CK-MB (CK-2) CK-MB (CK-2) Rel Index NT-Pro-B Natriuret Pep Total Protein Albumin 11/30/17 11/30/17 11/30/17 09:45 09:45 12:17 WBC 21.7 H RBC Hct 43.3 H D MCV 104 H MCH 33 H Seg Neuts % (Manual) Lymphocytes % (Manual) Monocytes % (Manual) Nucleated RBC % Seg Neutrophils # Man Lymphocytes # (Manual) POC ABG pH POC ABG pCO2 POC ABG pO2 Sodium Potassium 2.5 L* D Chloride 85.8 L 85.4 L Carbon Dioxide 46 H* BUN Creatinine 0.3 L Glucose 218 H 331 H CK-MB (CK-2) CK-MB (CK-2) Rel Index NT-Pro-B Natriuret Pep Total Protein Albumin Chest x-ray: report reviewed, image reviewed
[2017-11-30 14:31] LABS: BUN/Creatinine Ratio 30
--- NOTE | 2017-11-30 14:58 | Progress Note ---
Assessment and Plan Assessment and plan: Ms. Torres is a 62 yo woman with history of chronic respiratory failure on 3L home O2 due to end stage COPD and prior tobacco dependency pw SOB. She was recently admitted in October with similar presentation. She failed bipap therapy per ED report and was electively intubated. pCXR reported as Bilateral pneumonias and possible pleural fluid, right more than left and greatest towards the bases, representing worsening since October 2017 , as described. 11/25/17 2D ECHO reported as left ventricular chamber size is mildy dilated, mild concentric LVH, global lv systolic function is mildly decreased, est EF 40-45%, trace AR, RVSP is normal -Acute on chronc hypercapneic respiratory failure: off bipap, pulm is following -Acute bilateral Aspiration pneumonitis with sepsis, poa: IV abx, follow up sputum ctx and blood cultures -AE COPD: iv steroids, neb, iv abx -Acute combined heart failure: Echo and treat with iv lasix==>consulted cardiology, will need ischemic evaluation prior to discharge -Severe malnutrition, poa: consult Interlocker -DVT prophylaxis: sq lovenox Repleted potassium stress test once breathing is better Hospitalist Physical - Constitutional Vitals: Temp Pulse Resp BP Pulse Ox 98.6 F 81 19 166/79 91 11/30/17 08:32 11/30/17 10:03 11/30/17 09:18 11/30/17 10:03 11/30/17 08:32 General appearance: Present: no acute distress Results - Labs CBC & Chem 7: 11/30/17 12:17 11/30/17 12:17 Labs: Laboratory Last Values WBC 21.7 K/mm3 (4.5-11.0) H 11/30/17 09:45 RBC 4.17 M/mm3 (3.65-5.03) 11/30/17 09:45 Hgb 12.3 gm/dl (10.1-14.3) 11/30/17 12:17 Hct 39.9 % (30.3-42.9) 11/30/17 12:17 MCV 104 fl (79-97) H 11/30/17 09:45 MCH 33 pg (28-32) H 11/30/17 09:45 MCHC 31 % (30-34) 11/30/17 09:45 RDW 13.9 % (13.2-15.2) 11/30/17 09:45 Plt Count 324 K/mm3 (140-440) 11/30/17 09:45 Add Manual Diff Complete 11/25/17 04:59 Total Counted 100 11/25/17 04:59 Seg Neuts % (Manual) 39.0 % (40.0-70.0) L 11/25/17 04:59 Band Neutrophils % 45.0 % 11/25/17 04:59 Lymphocytes % (Manual) 7.0 % (13.4-35.0) L 11/25/17 04:59 Reactive Lymphs % (Man) 0 % 11/25/17 04:59 Monocytes % (Manual) 5.0 % (0.0-7.3) 11/25/17 04:59 Eosinophils % (Manual) 0 % (0.0-4.3) 11/25/17 04:59 Basophils % (Manual) 0 % (0.0-1.8) 11/25/17 04:59 Metamyelocytes % 4.0 % 11/25/17 04:59 Myelocytes % 0 % 11/25/17 04:59 Promyelocytes % 0 % 11/25/17 04:59 Blast Cells % 0 % 11/25/17 04:59 Nucleated RBC % 10.0 % (0.0-0.9) H 11/25/17 04:59 Seg Neutrophils # Man 2.9 K/mm3 (1.8-7.7) 11/25/17 04:59 Band Neutrophils # 3.3 K/mm3 11/25/17 04:59 Lymphocytes # (Manual) 0.5 K/mm3 (1.2-5.4) L 11/25/17 04:59 Abs React Lymphs (Man) 0.0 K/mm3 11/25/17 04:59 Monocytes # (Manual) 0.4 K/mm3 (0.0-0.8) 11/25/17 04:59 Eosinophils # (Manual) 0.0 K/mm3 (0.0-0.4) 11/25/17 04:59 Basophils # (Manual) 0.0 K/mm3 (0.0-0.1) 11/25/17 04:59 Metamyelocytes # 0.3 K/mm3 11/25/17 04:59 Myelocytes # 0.0 K/mm3 11/25/17 04:59 Promyelocytes # 0.0 K/mm3 11/25/17 04:59 Blast Cells # 0.0 K/mm3 11/25/17 04:59 WBC Morphology Not Reportable 11/25/17 04:59 Hypersegmented Neuts Not Reportable 11/25/17 04:59 Hyposegmented Neuts Not Reportable 11/25/17 04:59 Hypogranular Neuts Not Reportable 11/25/17 04:59 Smudge Cells Not Reportable 11/25/17 04:59 Toxic Granulation Not Reportable 11/25/17 04:59 Toxic Vacuolation Not Reportable 11/25/17 04:59 Dohle Bodies Few 11/25/17 04:59 Pelger-Huet Anomaly Not Reportable 11/25/17 04:59 Lindsay Rods Not Reportable 11/25/17 04:59 Platelet Estimate Appears normal 11/25/17 04:59 Clumped Platelets Not Reportable 11/25/17 04:59 Plt Clumps, EDTA Not Reportable 11/25/17 04:59 Large Platelets Few 11/25/17 04:59 Giant Platelets Not Reportable 11/25/17 04:59 Platelet Satelliting Not Reportable 11/25/17 04:59 Plt Morphology Comment Not Reportable 11/25/17 04:59 RBC Morphology Not Reportable 11/25/17 04:59 Dimorphic RBCs Not Reportable 11/25/17 04:59 Polychromasia Not Reportable 11/25/17 04:59 Hypochromasia 1+ 11/25/17 04:59 Poikilocytosis Not Reportable 11/25/17 04:59 Anisocytosis 1+ 11/25/17 04:59 Microcytosis Not Reportable 11/25/17 04:59 Macrocytosis Not Reportable 11/25/17 04:59 Spherocytes Not Reportable 11/25/17 04:59 Pappenheimer Bodies Not Reportable 11/25/17 04:59 Sickle Cells Not Reportable 11/25/17 04:59 Target Cells Not Reportable 11/25/17 04:59 Tear Drop Cells Not Reportable 11/25/17 04:59 Ovalocytes Not Reportable 11/25/17 04:59 Stomatocytes 1+ 11/25/17 04:59 Helmet Cells Not Reportable 11/25/17 04:59 [place] Bodies Not Reportable 11/25/17 04:59 [place] Rings Not Reportable 11/25/17 04:59 [place] Cells Not Reportable 11/25/17 04:59 Bite Cells Not Reportable 11/25/17 04:59 Crenated Cell Not Reportable 11/25/17 04:59 Elliptocytes Not Reportable 11/25/17 04:59 Acanthocytes (Spur) Not Reportable 11/25/17 04:59 Rouleaux Not Reportable 11/25/17 04:59 Hemoglobin C Crystals Not Reportable 11/25/17 04:59 Schistocytes Not Reportable 11/25/17 04:59 Malaria parasites Not Reportable 11/25/17 04:59 [place] Bodies Not Reportable 11/25/17 04:59 Hem Pathologist Commnt No 11/25/17 04:59 D-Dimer 207.14 ng/mlDDU (0-234) 11/24/17 12:41 POC ABG pH 7.418 (7.35-7.45) 11/26/17 06:44 POC ABG pCO2 83.8 (35-45) H 11/26/17 06:44 POC ABG pO2 67 (80-105) L 11/26/17 06:44 POC ABG HCO3 54.1 11/26/17 06:44 POC ABG Total CO2 > 50 11/26/17 06:44 POC ABG O2 Sat 92 11/26/17 06:44 POC ABG Base Excess 30 11/26/17 06:44 FiO2 40 % 11/26/17 06:44 Sodium 143 mmol/L (137-145) 11/30/17 12:17 Potassium 2.3 mmol/L (3.6-5.0) L* 11/30/17 12:17 Chloride 85.4 mmol/L (98-107) L 11/30/17 12:17 Carbon Dioxide > 50 mmol/L (22-30) H* 11/30/17 12:17 Anion Gap 10 mmol/L 11/30/17 12:17 BUN 9 mg/dL (7-17) 11/30/17 12:17 Creatinine 0.3 mg/dL (0.7-1.2) L 11/30/17 12:17 Estimated GFR > 60 ml/min 11/30/17 12:17 BUN/Creatinine Ratio 30 % 11/30/17 12:17 Glucose 331 mg/dL (65-100) H 11/30/17 12:17 Hemoglobin A1c 5.5 % (4-6) 11/24/17 16:26 Calcium 8.7 mg/dL (8.4-10.2) 11/30/17 12:17 Phosphorus 3.60 mg/dL (2.5-4.5) 11/26/17 09:39 Magnesium 1.90 mg/dL (1.7-2.3) 11/28/17 06:31 Total Bilirubin 0.30 mg/dL (0.1-1.2) 11/25/17 04:59 AST 11 units/L (5-40) 11/25/17 04:59 ALT 13 units/L (7-56) 11/25/17 04:59 Alkaline Phosphatase 62 units/L (35-129) 11/25/17 04:59 Total Creatine Kinase 33 units/L (30-135) 11/24/17 12:41 CK-MB (CK-2) 4.2 ng/mL (0.0-4.0) H 11/24/17 12:41 CK-MB (CK-2) Rel Index 12.7 (0-4) H 11/24/17 12:41 Troponin T < 0.010 ng/mL (0.00-0.029) 11/24/17 12:41 NT-Pro-B Natriuret Pep 4859 pg/mL (0-900) H 11/24/17 12:41 Total Protein 4.7 g/dL (6.3-8.2) L 11/25/17 04:59 Albumin 2.7 g/dL (3.9-5) L 11/25/17 04:59 Albumin/Globulin Ratio 1.4 % 11/25/17 04:59 Urine Color Yellow (Yellow) 11/24/17 Unknown Urine Turbidity Clear (Clear) 11/24/17 Unknown Urine pH 5.0 (5.0-7.0) 11/24/17 Unknown Ur Specific [place] 1.017 (1.003-1.030) 11/24/17 Unknown Urine Protein 100 mg/dl mg/dL (Negative) 11/24/17 Unknown Urine Glucose (UA) Neg mg/dL (Negative) 11/24/17 Unknown Urine Ketones Tr mg/dL (Negative) 11/24/17 Unknown Urine Blood Sm (Negative) 11/24/17 Unknown Urine Nitrite Neg (Negative) 11/24/17 Unknown Urine Bilirubin Neg (Negative) 11/24/17 Unknown Urine Urobilinogen < 2.0 mg/dL (<2.0) 11/24/17 Unknown Ur Leukocyte Esterase Neg (Negative) 11/24/17 Unknown Urine WBC (Auto) 4.0 /HPF (0.0-6.0) 11/24/17 Unknown Urine RBC (Auto) 15.0 /HPF (0.0-6.0) 11/24/17 Unknown Urine Bacteria (Auto) 1+ /HPF (Negative) 11/24/17 Unknown Urine Mucus Few /HPF 11/24/17 Unknown Vancomycin Trough 9.2 ug/mL (5.0-20.0) 11/28/17 06:31
[2017-11-30] MEDS: KCL 10MEQ/100ML 10 MEQ/100 ML BAG IV SCH ×4 (15:30→21:50)
[2017-11-30] MEDS ORDERED: NACL 0.9% 1000 ML 1,000 ML with KCL 80 MEQ IV ONE (16:00)
[2017-11-30] MEDS ORDERED: ATIVAN PO PRN (17:28)
[2017-11-30] MEDS: K-DUR PO SCH (22:07)
[2017-12-01] MEDS: PROVENTIL IH SCH ×2 (01:42→09:15)
[2017-12-01 06:59] LABS: BUN/Creatinine Ratio 30; Blood Urea Nitrogen 9 mg/dL (7-17); Calcium 8.9 mg/dL (8.4-10.2); Hemolysis Index 8
--- NOTE | 2017-12-01 08:38 | XRay Report ---
AP CHEST: HISTORY: Pneumonia Patchy infiltrate or focal congestion at the right lung base has resolved since 11/27/17. Cardiomegaly, pulmonary venous congestion and trace bilateral pleural effusions are identified. The lungs are generally clear other than minor bibasilar atelectatic changes. No pneumothorax. The bony structures are intact. IMPRESSION: Mild CHF.
[2017-12-01 08:57] VITALS: BP 172/97
--- NOTE | 2017-12-01 09:25 | Progress Note ---
Assessment and Plan RLL Pneumonia Hypercapneic respiratory failure s/p extubation Acute systolic heart failure EF 40-45% by echo Hx of COPD/Asthma Hypernatremia Systemic Hypertension Recommend: Outpatient follow-up with stress testing for mild cardiomyopathy, once acute pulmonary infection has resolved. Subjective Date of service: 12/01/17 Principal diagnosis: respiratory failure Interval history: Patient has no cardiac complaints. Objective Vital Signs Temp Pulse Pulse Resp Resp BP Pulse Ox 12/01/17 07:37 98.6 F 85 18 172/97 97 12/01/17 05:36 98.1 F 85 18 177/89 96 12/01/17 01:39 92 H 20 97 12/01/17 01:15 92 H 20 12/01/17 01:05 95 H 20 12/01/17 00:51 98.1 F 86 16 168/75 99 11/30/17 22:05 90 161/78 11/30/17 22:00 95 H 97 11/30/17 19:48 98.7 F 90 17 161/78 97 11/30/17 17:01 98.8 F 95 H 18 180/84 100 11/30/17 15:00 86 20 11/30/17 14:40 96 H 20 11/30/17 12:26 98.7 F 77 18 170/64 95 11/30/17 10:03 81 166/79 11/30/17 10:00 67 - Physical Examination General: No Apparent Distress HEENT: Positive: PERRL Cardiac: Positive: Reg Rate and Rhythm Neuro: Positive: Grossly Intact Extremities: Absent: edema - Labs and Meds CBC 11/30/17 11/30/17 Range/Units 09:45 12:17 WBC 21.7 H (4.5-11.0) K/mm3 RBC 4.17 (3.65-5.03) M/mm3 Hgb 13.6 12.3 (10.1-14.3) gm/dl Hct 43.3 H D 39.9 (30.3-42.9) % Plt Count 324 (140-440) K/mm3 Comprehensive Metabolic Panel 11/30/17 11/30/17 12/01/17 Range/Units 09:45 12:17 06:02 Sodium 145 D 143 142 (137-145) mmol/L Potassium 2.5 L* D 2.3 L* 3.9 D (3.6-5.0) mmol/L Chloride 85.8 L 85.4 L 89.9 L (98-107) mmol/L Carbon Dioxide 46 H* > 50 H* 45 H* (22-30) mmol/L BUN 8 9 9 (7-17) mg/dL Creatinine 0.3 L 0.3 L 0.3 L (0.7-1.2) mg/dL Glucose 218 H 331 H 148 H (65-100) mg/dL Calcium 9.2 8.7 8.9 (8.4-10.2) mg/dL
[2017-12-01] MEDS: cefTRIAXone 1 GM in NACL 0.9% 20 ML IV SCH (10:49)
[2017-12-01] MEDS: SODIUM CHLORIDE FLUSH SYRINGE 10 ML IV SCH (10:50)
[2017-12-01] MEDS: K-DUR PO SCH (11:05)
[2017-12-01] MEDS: LOVENOX SUB-Q SCH (11:05)
[2017-12-01] MEDS: ZESTRIL PO SCH (11:06)
[2017-12-01] MEDS: COREG PO SCH (11:06)
[2017-12-01] MEDS: PROTONIX PO SCH (11:06)
--- NOTE | 2017-12-01 14:18 | Progress Note ---
Assessment and Plan Imp: 1. Pneumonia 2/2 H.flu -> radiographically and clinically better 2. COPD exac. 3. Sepsis 4. A/C respiratory failure, hypoxia & hypercapnea 5. Hypokalemia Rec: 1. Would complete a course of Omnicef 300mg BID x 10 total days of ABX at d/c; needs f/u CXR to ensure clearance of infiltrates 2. Prolonged prednisone taper needed at d/c 3. PT/mobilize/ambulate 4. Avoid Lasix if possible, due to elevated bicarb and low K 5. K better but recommend chronic supplementation 6. Okay to d/c pulm-means; f/u Dr. Quintana next week Plan of care reviewed with patient, she understands/agrees Subjective Date of service: 12/01/17 Principal diagnosis: respiratory failure Interval history: No events. Awake, alert. On NC. SOB improving. Coughing up brown sputum, better. Active Medications Acetaminophen (Tylenol) 650 mg PO Q4H PRN PRN Reason: Pain MILD(1-3)/Fever >100.5/PÉREZ Last Admin: 11/30/17 01:07 Dose: 650 mg Albuterol (Proventil) 2.5 mg IH QIDRT [facility] Last Admin: 12/01/17 09:15 Dose: 2.5 mg Carvedilol (Coreg) 6.25 mg PO BID [facility] Last Admin: 12/01/17 11:06 Dose: 6.25 mg Enoxaparin Sodium (Lovenox) 40 mg SUB-Q QDAY [facility] Last Admin: 12/01/17 11:05 Dose: 40 mg Hydralazine HCl (Apresoline) 5 mg IV Q6H PRN PRN Reason: Blood Pressure Last Admin: 11/30/17 01:19 Dose: 5 mg Ceftriaxone Sodium 1 gm/ (Sodium Chloride) 20 mls @ 2 mls/min IV Q24HR [facility] Last Admin: 12/01/17 10:49 Dose: 2 mls/min Lisinopril (Zestril) 5 mg PO QDAY [facility] Last Admin: 12/01/17 11:06 Dose: 5 mg Lorazepam (Ativan) 0.5 mg PO Q8HR PRN PRN Reason: Anxiety Last Admin: 11/30/17 17:42 Dose: 0.5 mg Methylprednisolone Sodium Succinate (Solu-Medrol) 20 mg IV Q8HR [facility] Last Admin: 12/01/17 06:50 Dose: 20 mg Ondansetron HCl (Zofran) 4 mg IV Q8H PRN PRN Reason: Nausea And Vomiting Pantoprazole Sodium (Protonix) 40 mg PO QDAY [facility] Last Admin: 12/01/17 11:06 Dose: 40 mg Potassium Chloride (K-Dur) 40 meq PO BID [facility] Last Admin: 12/01/17 11:05 Dose: 40 meq Sodium Chloride (Sodium Chloride Flush Syringe 10 Ml) 10 ml IV BID [facility] Last Admin: 12/01/17 10:50 Dose: 10 ml Objective Vital Signs - 12hr 12/01/17 12/01/17 12/01/17 05:36 07:37 09:15 Temperature 98.1 F 98.6 F Pulse Rate 85 85 Pulse Rate [ 87 Anterior Bilateral Throughout] Respiratory 18 18 Rate Respiratory 18 Rate [Anterior Bilateral Throughout] Blood Pressure 177/89 172/97 O2 Sat by Pulse 96 97 95 Oximetry 12/01/17 10:00 Temperature Pulse Rate 85 Pulse Rate [ Anterior Bilateral Throughout] Respiratory Rate Respiratory Rate [Anterior Bilateral Throughout] Blood Pressure O2 Sat by Pulse 95 Oximetry Constitutional: no acute distress, alert Eyes: non-icteric ENT: oropharynx moist Neck: supple Effort: normal Ascultation: Bilateral: clear Cardiovascular: regular rate and rhythm (no mrg) Gastrointestinal: normoactive bowel sounds, soft, non-tender Integumentary: normal Extremities: no cyanosis, no edema, pink and warm Neurologic: normal mental status, non-focal exam, pupils equal and round, CN II- XII normal Psychiatric: mood appropriate, affect normal CBC and BMP: 11/30/17 12:17 12/01/17 06:02 ABG, PT/INR, D-dimer: ABG POC ABG pH 7.418 (7.35-7.45) 11/26/17 06:44 POC ABG pCO2 83.8 (35-45) H 11/26/17 06:44 POC ABG pO2 67 (80-105) L 11/26/17 06:44 POC ABG HCO3 54.1 11/26/17 06:44 POC ABG Total CO2 > 50 11/26/17 06:44 POC ABG O2 Sat 92 11/26/17 06:44 PT/INR, D-dimer D-Dimer 207.14 ng/mlDDU (0-234) 11/24/17 12:41 Abnormal lab findings: Abnormal Labs 11/24/17 11/24/17 11/24/17 12:41 12:41 12:41 WBC 3.5 L RBC Hct 43.4 H MCV 108 H MCH 33 H Seg Neuts % (Manual) Lymphocytes % (Manual) Monocytes % (Manual) 10.0 H Nucleated RBC % 7.0 H Seg Neutrophils # Man 1.4 L Lymphocytes # (Manual) 0.8 L POC ABG pH POC ABG pCO2 POC ABG pO2 Sodium Potassium 3.5 L Chloride 93.5 L Carbon Dioxide 46 H* BUN Creatinine 0.3 L Glucose CK-MB (CK-2) 4.2 H CK-MB (CK-2) Rel Index 12.7 H NT-Pro-B Natriuret Pep 4859 H Total Protein Albumin 11/24/17 11/24/17 11/24/17 12:57 16:38 16:50 WBC RBC Hct MCV MCH Seg Neuts % (Manual) Lymphocytes % (Manual) Monocytes % (Manual) Nucleated RBC % Seg Neutrophils # Man Lymphocytes # (Manual) POC ABG pH 7.154 L 7.478 H 7.492 H POC ABG pCO2 > 130.0 H 70.6 H 67.6 H POC ABG pO2 62 L 50 L 50 L Sodium Potassium Chloride Carbon Dioxide BUN Creatinine Glucose CK-MB (CK-2) CK-MB (CK-2) Rel Index NT-Pro-B Natriuret Pep Total Protein Albumin 11/25/17 11/25/17 11/25/17 04:54 04:59 04:59 WBC RBC 3.61 L Hct MCV 105 H MCH 33 H Seg Neuts % (Manual) 39.0 L Lymphocytes % (Manual) 7.0 L Monocytes % (Manual) Nucleated RBC % 10.0 H Seg Neutrophils # Man Lymphocytes # (Manual) 0.5 L POC ABG pH 7.522 H POC ABG pCO2 59.3 H POC ABG pO2 Sodium 148 H Potassium Chloride 97.5 L Carbon Dioxide 42 H* BUN 19 H Creatinine 0.5 L D Glucose 126 H CK-MB (CK-2) CK-MB (CK-2) Rel Index NT-Pro-B Natriuret Pep Total Protein 4.7 L Albumin 2.7 L 11/26/17 11/26/17 11/26/17 06:44 09:39 09:39 WBC 11.6 H RBC 3.60 L Hct MCV 103 H MCH 33 H Seg Neuts % (Manual) Lymphocytes % (Manual) Monocytes % (Manual) Nucleated RBC % Seg Neutrophils # Man Lymphocytes # (Manual) POC ABG pH POC ABG pCO2 83.8 H POC ABG pO2 67 L Sodium 152 H Potassium 3.3 L Chloride Carbon Dioxide 44 H* BUN 29 H Creatinine 0.4 L Glucose 108 H CK-MB (CK-2) CK-MB (CK-2) Rel Index NT-Pro-B Natriuret Pep Total Protein Albumin 11/27/17 11/27/17 11/28/17 03:54 03:54 06:31 WBC 14.5 H 17.8 H RBC 3.32 L 3.43 L Hct MCV 104 H 104 H MCH Seg Neuts % (Manual) Lymphocytes % (Manual) Monocytes % (Manual) Nucleated RBC % Seg Neutrophils # Man Lymphocytes # (Manual) POC ABG pH POC ABG pCO2 POC ABG pO2 Sodium Potassium 3.1 L Chloride 91.7 L Carbon Dioxide 45 H* BUN 20 H Creatinine 0.3 L Glucose 144 H CK-MB (CK-2) CK-MB (CK-2) Rel Index NT-Pro-B Natriuret Pep Total Protein Albumin 11/28/17 11/29/17 11/29/17 06:31 06:11 06:11 WBC 20.3 H RBC 3.32 L Hct MCV 103 H MCH 33 H Seg Neuts % (Manual) Lymphocytes % (Manual) Monocytes % (Manual) Nucleated RBC % Seg Neutrophils # Man Lymphocytes # (Manual) POC ABG pH POC ABG pCO2 POC ABG pO2 Sodium 155 H D Potassium 3.3 L 3.2 L Chloride 91.2 L Carbon Dioxide 45 H* 48 H* BUN Creatinine 0.3 L 0.2 L Glucose 120 H 110 H CK-MB (CK-2) CK-MB (CK-2) Rel Index NT-Pro-B Natriuret Pep Total Protein Albumin 11/30/17 11/30/17 11/30/17 09:45 09:45 12:17 WBC 21.7 H RBC Hct 43.3 H D MCV 104 H MCH 33 H Seg Neuts % (Manual) Lymphocytes % (Manual) Monocytes % (Manual) Nucleated RBC % Seg Neutrophils # Man Lymphocytes # (Manual) POC ABG pH POC ABG pCO2 POC ABG pO2 Sodium Potassium 2.5 L* D 2.3 L* Chloride 85.8 L 85.4 L Carbon Dioxide 46 H* > 50 H* BUN Creatinine 0.3 L 0.3 L Glucose 218 H 331 H CK-MB (CK-2) CK-MB (CK-2) Rel Index NT-Pro-B Natriuret Pep Total Protein Albumin 12/01/17 06:02 WBC RBC Hct MCV MCH Seg Neuts % (Manual) Lymphocytes % (Manual) Monocytes % (Manual) Nucleated RBC % Seg Neutrophils # Man Lymphocytes # (Manual) POC ABG pH POC ABG pCO2 POC ABG pO2 Sodium Potassium Chloride 89.9 L Carbon Dioxide 45 H* BUN Creatinine 0.3 L Glucose 148 H CK-MB (CK-2) CK-MB (CK-2) Rel Index NT-Pro-B Natriuret Pep Total Protein Albumin
--- NOTE | 2017-12-01 15:40 | Discharge Summary ---
Providers - Providers Date of Admission: 11/24/17 17:33 Attending physician: JOY NICOLE MD 11/24/17 15:17 Consult to Dietitian/Nutrition [CONS] Routine Physician Instructions: Reason For Exam: Reason for Consult: Write/Manage Tube Feeding 11/24/17 16:09 Consult to Physician [CONS] Urgent Comment: Consulting Provider: CHRISTY MAX Physician Instructions: Reason For Exam: respiratory failure, vent management 11/25/17 16:19 Consult to Dietitian/Nutrition [CONS] Routine Physician Instructions: Reason For Exam: Reason for Consult: Malnutrition 11/26/17 10:48 Physical Therapy Evaluation and Treat [CONS] Routine Comment: Reason For Exam: Immobility on Vent previously 11/26/17 15:31 Consult to Physician [CONS] Routine Comment: Consulting Provider: DAMIR LYNCH Physician Instructions: Reason For Exam: CHF Primary care physician: WIRE COATER Hospitalization Condition: Serious Disposition: DC-30 STILL A PATIENT Exam - Constitutional Vitals: Temp Pulse Resp BP Pulse Ox 98.6 F 85 18 172/97 95 12/01/17 07:37 12/01/17 10:00 12/01/17 09:15 12/01/17 07:37 12/01/17 10:00 Plan Follow up with: [facility] [Provider Group] - 7 Days PRIMARY CARE, [Primary Care Provider] - 3-5 Days Prescriptions: ALBUTEROL Inhaler [ProAir HFA Inhaler] 2 puff IH QID PRN #1 inha PRN Reason: Shortness Of Breath Carvedilol [Coreg] 6.25 mg PO BID #60 tablet Fluticasone/Salmeterol [Advair 250-50 Diskus] 1 each IH BID #1 blst.w.dev Lisinopril [Zestril TAB] 5 mg PO QDAY #30 tablet Pantoprazole [Protonix TAB] 40 mg PO QDAY #30 tablet predniSONE [Deltasone] 10 mg PO .TAPER #48 tab
== END 2017-12-01 16:37 | disposition home health service (06) | DRG 871 ==
LOC: ED 12:02 → CC1 17:33 → 4A 11-27 17:31
PROVIDERS: ADMIT Internal Medicine; ATTEND Internal Medicine
PROC: 0BH17EZ Insertion of Endotracheal Airway into Trachea, Via Natural or Artificial Opening (ICD-10-PCS; principal; 2017-11-24)
PROC: 5A1945Z Respiratory Ventilation, 24-96 Consecutive Hours (ICD-10-PCS; 2017-11-24)
PROC: 4A03XR1 Measurement of Arterial Saturation, Peripheral, External Approach (ICD-10-PCS; 2017-11-24)
PROC: 4A03XR1 Measurement of Arterial Saturation, Peripheral, External Approach (ICD-10-PCS; 2017-11-25)
PROC: 5A09357 Assistance with Respiratory Ventilation, Less than 24 Consecutive Hours, Continuous Positive Airway Pressure (ICD-10-PCS; 2017-11-26)
PROC: 4A03XR1 Measurement of Arterial Saturation, Peripheral, External Approach (ICD-10-PCS; 2017-11-26)
PROC: 5A09357 Assistance with Respiratory Ventilation, Less than 24 Consecutive Hours, Continuous Positive Airway Pressure (ICD-10-PCS; 2017-11-27)
PROC: 5A09357 Assistance with Respiratory Ventilation, Less than 24 Consecutive Hours, Continuous Positive Airway Pressure (ICD-10-PCS; 2017-11-28)
PROC: 5A09357 Assistance with Respiratory Ventilation, Less than 24 Consecutive Hours, Continuous Positive Airway Pressure (ICD-10-PCS; 2017-11-29)
PROC: 5A09357 Assistance with Respiratory Ventilation, Less than 24 Consecutive Hours, Continuous Positive Airway Pressure (ICD-10-PCS; 2017-11-30)
PROC: 5A09357 Assistance with Respiratory Ventilation, Less than 24 Consecutive Hours, Continuous Positive Airway Pressure (ICD-10-PCS; 2017-12-01)
DX: A41.9 Sepsis, unspecified organism (principal); J69.0 Pneumonitis due to inhalation of food and vomit; J96.22 Acute and chronic respiratory failure with hypercapnia; E43 Unspecified severe protein-calorie malnutrition; I50.41 Acute combined systolic (congestive) and diastolic (congestive) heart failure; J96.21 Acute and chronic respiratory failure with hypoxia; E87.2 Acidosis; J44.1 Chronic obstructive pulmonary disease with (acute) exacerbation; Z68.1 Body mass index [BMI] 19.9 or less, adult; E87.4 Mixed disorder of acid-base balance; I42.9 Cardiomyopathy, unspecified; E87.0 Hyperosmolality and hypernatremia; E87.6 Hypokalemia; B96.3 Hemophilus influenzae [H. influenzae] as the cause of diseases classified elsewhere; F17.210 Nicotine dependence, cigarettes, uncomplicated; I11.0 Hypertensive heart disease with heart failure; Z79.899 Other long term (current) drug therapy; Z88.8 Allergy status to other drugs, medicaments and biological substances; Z91.010 Allergy to peanuts; Z99.81 Dependence on supplemental oxygen
CPT/HCPCS: 36415; 36600; 71045; 80048; 80053; 80202; 81001; 82550; 82553; 82803; 83036; 83735; 83880; 84100; 84484; 85007; 85014; 85018; 85025; 85027; 85379; 87070; 87205; 93005; 93010; 93306; 94002; 94003; 94640; 94644; 94660; 94760; 96374; 96375; J0360; J0696; J1650; J1940; J2250; J2270; J2543; J2920; J2930; J3370; J3480; J7030; J7040; J7042; J7050

== ENCOUNTER 2018-01-14 08:20 | Inpatient (IN) | payer MEDICAID, MEDICARE ==
--- NOTE | 2018-01-14 09:26 | XRay Report ---
Chest 2 views: Compared to 12/01/17. History: Shortness of breath. Findings: Cardiomegaly. Trachea is midline. No consolidation, pneumothorax or pleural effusion. Impression: No acute cardiopulmonary findings.
[2018-01-14] MEDS ORDERED: TYLENOL PO ONE (09:36)
[2018-01-14] MEDS ORDERED: PROVENTIL IH ONE ×2 (09:36→12:18)
[2018-01-14] MEDS ORDERED: NACL 0.9% 1000 ML 1,000 ML IV ONE ×3 (09:36→11:08)
--- NOTE | 2018-01-14 09:39 | Emergency Department Report ---
Blank Doc - Documentation Documentation: Patient is a 62-year-old female with past medical history of COPD who is on 3 L of oxygen at baseline states that last night her oxygen tank ran out what most of the night without oxygen. Patient states she has a mild cough and shortness of breath despite being back on oxygen via EMS and our hospital. Patient states she feels some tightness in chest. Patient also states that her sputum. They can she has dry mouth. Patient states "I just don 't feel well". A brief physical exam patient has decreased breath sounds and a very mild diffuse wheeze. Patient does have dry mucous membranes in the mouth. Heart tones within normal limits abdomen soft and nontender. Patient will be sent to a treatment room for albuterol treatment as well as Solu-Medrol IV fluids last checked as well. Chest x-ray was ordered from triage shows no acute process. Patient be reassessed spelled PINO
[2018-01-14 09:57] LABS: Basophils % (Auto) 0.2 % (0.0-1.8); Eosinophils # (Auto) 0.1 K/mm3 (0.0-0.4); Eosinophils % (Auto) 0.5 % (0.0-4.3); Hemoglobin 11.9 gm/dl (10.1-14.3); Lymphocytes % (Auto) 17.4 % (13.4-35.0); Mean Corpuscular HGB Conc 32 % (30-34); Mean Corpuscular Hemoglobin 34 pg (28-32); Mean Corpuscular Volume 106 fl (79-97); Monocytes # (Auto) 1.1 K/mm3 (0.0-0.8); Monocytes % (Auto) 9.2 % (0.0-7.3); Platelet Count 299 K/mm3 (140-440); Red Blood Count 3.48 M/mm3 (3.65-5.03); Red Cell Distribution Width 14.9 % (13.2-15.2)
[2018-01-14 10:15] LABS: BUN/Creatinine Ratio 23; Blood Urea Nitrogen 7 mg/dL (7-17); Calcium 9.1 mg/dL (8.4-10.2); Hemolysis Index 4
[2018-01-14] MEDS ORDERED: MAGNESIUM SULFATE 2GM/50ML 2 GM/50 ML BAG IV ONE (10:25)
[2018-01-14] MEDS ORDERED: MAGNESIUM SULFATE 2 GM in NACL 0.9% 50 ML IV ONE (11:00)
--- NOTE | 2018-01-14 11:16 | Emergency Department Report ---
ED General Adult HPI - General Chief complaint: Dyspnea/Respdistress Stated complaint: ANTHONY Time Seen by Provider: 01/14/18 09:18 Source: patient Mode of arrival: Wheelchair Limitations: No Limitations - History of Present Illness Initial comments: This is a 62-year-old female with end-stage COPD. She states that she ran out of oxygen. She states that she called her company 3 days ago but they have not responded yet. She was very short of breath without oxygen. She did use her home neb machine. However she had persistent wheezing. She called EMS for transport for her difficulty in breathing. She denies recent fever or chills. She denies a change in her sputum production recently. She has been on no recent antibiotics. She states she was hospitalized markedly ago. 2 weeks ago she noted a slight amount of yellow in her sputum but not since. She does use CPAP at night. -: hour(s), days(s) Severity scale (0 -10): 0 Associated Symptoms: shortness of breath (and wheezing) Treatments Prior to Arrival: other (ran out of oxygen using home neb) - Related Data Previous Rx's Medication Instructions Recorded Last Taken Type ALBUTEROL NEB's [Proventil 0.083% 2.5 mg IH Q4HRT PRN #60 nebu 09/16/17 Unknown Rx NEBS] Arformoterol Nebu [Brovana Nebu] 15 mcg IH Q12HRT #60 ml 09/16/17 Unknown Rx Montelukast [Singulair] 10 mg PO QHS #30 tablet 09/16/17 Unknown Rx ALBUTEROL Inhaler [ProAir HFA 2 puff IH QID PRN #1 inha 11/30/17 Unknown Rx Inhaler] Carvedilol [Coreg] 6.25 mg PO BID #60 tablet 11/30/17 Unknown Rx Fluticasone/Salmeterol [Advair 1 each IH BID #1 blst.w.dev 11/30/17 Unknown Rx 250-50 Diskus] Lisinopril [Zestril TAB] 5 mg PO QDAY #30 tablet 11/30/17 Unknown Rx Pantoprazole [Protonix TAB] 40 mg PO QDAY #30 tablet 11/30/17 Unknown Rx predniSONE [Deltasone] 10 mg PO .TAPER #48 tab 06/12/18 Unknown Rx Allergies Allergy/AdvReac Type Severity Reaction Status Date / Time peanut Allergy Angioedema Verified 07/23/16 00:17 ipratropium bromide AdvReac Shortness Verified 09/11/13 07:39 [From Atrovent] of Breath ED Review of Systems ROS: Stated complaint: ANTHONY Other details as noted in HPI Constitutional: denies: chills, fever Eyes: denies: eye pain, eye discharge, vision change ENT: denies: ear pain, throat pain Respiratory: shortness of breath, wheezing. denies: cough (no acute change) Cardiovascular: denies: chest pain, palpitations Endocrine: no symptoms reported Gastrointestinal: denies: abdominal pain, nausea, diarrhea Genitourinary: denies: urgency, dysuria, discharge Musculoskeletal: denies: back pain, joint swelling, arthralgia Skin: denies: rash, lesions Neurological: denies: headache, weakness, paresthesias Psychiatric: denies: anxiety, depression Hematological/Lymphatic: denies: easy bleeding, easy bruising ED Past Medical Hx - Past Medical History Previous Medical History?: Yes Hx Hypertension: No Hx CVA: No Hx Heart Attack/AMI: No Hx Congestive Heart Failure: No Hx Diabetes: No Hx Deep Vein Thrombosis: No Hx Pulmonary Embolism: No Hx GERD: No Hx Liver Disease: No Hx Renal Disease: No Hx Sickle Cell Disease: No Hx Arthritis: No Hx Headaches / Migraines: No Hx Seizures: No Hx Kidney Stones: No Hx Psychiatric Treatment: No Hx Asthma: Yes Hx COPD: Yes Hx Tuberculosis: No Hx Dementia: No Hx HIV: No Additional medical history: hx intubation - Surgical History Hx Coronary Stent: No Hx Open Heart Surgery: No Hx Pacemaker: No Hx Internal Defibrillator: No Hx Cholecystectomy: No Hx Appendectomy: No Hx Breast Surgery: No - Social History Smoking Status: Former Smoker Substance Use Type: None - Medications Home Medications: Home Medications Medication Instructions Recorded Confirmed Last Taken Type ALBUTEROL NEB's [Proventil 0.083% 2.5 mg IH Q4HRT PRN #60 nebu 09/16/17 Unknown Rx NEBS] Arformoterol Nebu [Brovana Nebu] 15 mcg IH Q12HRT #60 ml 09/16/17 11/24/17 Unknown Rx Montelukast [Singulair] 10 mg PO QHS #30 tablet 09/16/17 11/24/17 Unknown Rx ALBUTEROL Inhaler [ProAir HFA 2 puff IH QID PRN #1 inha 11/30/17 Unknown Rx Inhaler] Carvedilol [Coreg] 6.25 mg PO BID #60 tablet 11/30/17 Unknown Rx Fluticasone/Salmeterol [Advair 1 each IH BID #1 blst.w.dev 11/30/17 Unknown Rx 250-50 Diskus] Lisinopril [Zestril TAB] 5 mg PO QDAY #30 tablet 11/30/17 Unknown Rx Pantoprazole [Protonix TAB] 40 mg PO QDAY #30 tablet 11/30/17 Unknown Rx predniSONE [Deltasone] 10 mg PO .TAPER #48 tab 11/30/17 Unknown Rx ED Physical Exam - General Limitations: Physical Limitation General appearance: cachectic (quite frail) - Head Head exam: Present: atraumatic, normocephalic - Eye Eye exam: Present: normal appearance. Absent: scleral icterus - ENT ENT exam: Present: mucous membranes moist - Neck Neck exam: Present: normal inspection. Absent: tenderness, meningismus - Respiratory Respiratory exam: Present: wheezes (bilaterally), decreased breath sounds ( Somewhat) - Cardiovascular Cardiovascular Exam: Present: regular rate, normal rhythm. Absent: systolic murmur, diastolic murmur, rubs, gallop - GI/Abdominal GI/Abdominal exam: Present: soft, normal bowel sounds. Absent: distended, tenderness, guarding, rebound, rigid - Extremities Exam Extremities exam: Absent: calf tenderness - Back Exam Back exam: Present: normal inspection. Absent: CVA tenderness (R), CVA tenderness (L) - Neurological Exam Neurological exam: Present: CN II-XII intact. Absent: motor sensory deficit - Psychiatric Psychiatric exam: Present: normal affect, normal mood - Skin Skin exam: Present: warm, dry, intact, normal color. Absent: rash ED Course Vital Signs 01/14/18 01/14/18 01/14/18 08:41 09:50 09:52 Temperature 98.2 F Pulse Rate 98 H Respiratory 18 Rate Blood Pressure 167/73 O2 Sat by Pulse 93 100 95 Oximetry 01/14/18 01/14/18 01/14/18 09:56 09:58 10:00 Temperature Pulse Rate Respiratory Rate Blood Pressure O2 Sat by Pulse 94 95 94 Oximetry 01/14/18 01/14/18 01/14/18 10:02 10:04 10:06 Temperature Pulse Rate 96 H Respiratory 13 Rate Blood Pressure 165/79 165/79 165/79 O2 Sat by Pulse 94 97 96 Oximetry 01/14/18 10:12 Temperature 98.5 F Pulse Rate Respiratory 18 Rate Blood Pressure O2 Sat by Pulse 96 Oximetry - Reevaluation(s) Reevaluation #1: Patient states that she "closes up" with Atrovent. I don't think this is an allergy but we will avoid it. She was given albuterol nebs. She is clinically stable. I ordered mag and Solu-Medrol. She will be admitted by Dr. Zamarripa to the hospitalist service for further care and evaluation. Arterial blood gas is pending. The patient has pre-existing chronic hypercapnic respiratory failure. She will need BiPAP or CPAP at night and at minimum. Determination as per arterial blood gas. 01/14/18 11:16 ED Medical Decision Making - Lab Data Result diagrams: 01/14/18 09:40 01/14/18 09:40 Laboratory Results - last 24 hr 01/14/18 01/14/18 09:40 09:40 WBC 11.6 H RBC 3.48 L Hgb 11.9 Hct 37.0 MCV 106 H MCH 34 H MCHC 32 RDW 14.9 Plt Count 299 Lymph % (Auto) 17.4 [place] % (Auto) 9.2 H Eos % (Auto) 0.5 Baso % (Auto) 0.2 Lymph # 2.0 [place] # 1.1 H Eos # 0.1 Baso # 0.0 Seg Neutrophils % 72.7 H Seg Neutrophils # 8.4 H Sodium 149 H Potassium 3.7 Chloride 100.3 Carbon Dioxide 41 H* Anion Gap 11 BUN 7 Creatinine 0.3 L Estimated GFR > 60 BUN/Creatinine Ratio 23 Glucose 84 Calcium 9.1 Troponin T < 0.010 - Radiology Data Radiology results: report reviewed interpreted by me: No acute process per radiologist Critical care attestation.: If time is entered above; I have spent that time in minutes in the direct care of this critically ill patient, excluding procedure time. ED Disposition Clinical Impression: Hypoxia, COPD exacerbation Hypercapnic respiratory failure Qualifiers: Chronicity: acute on chronic Qualified Code(s): J96.22 - Acute and chronic respiratory failure with hypercapnia Disposition: 09 OP ADMIT IP TO THIS HOSP Is pt being admited?: Yes Does the pt Need Aspirin: Yes Condition: Stable Instructions: Chronic Obstructive Pulmonary Disease (ED) Referrals: PRIMARY CARE, [Primary Care Provider] - 3-5 Days
--- NOTE | 2018-01-14 11:23 | History and Physical Report ---
History of Present Illness Chief complaint: I cant breathe History of present illness: 62 YO Female with COPD, HTN, GERD, Chronic Respiratory Failure on 3L Home oxygen , Asthma presents to ED for evaluation. Pt states that she has experienced shortness of breath for the past 1 days with worsening symptoms over the same time frame. Pt acknowledges productive cough of thick clear sputum, with slightly increased sputum production over the past 3 days. Pt denies fever, chills, CP, Palpitations, NVD, Trauma, Hemoptysis, leg swelling, calf pain, Syncope, recent ill contacts. Pt states that she ran out of oxygen. Pt states that increased nebulizer treatments were used without relief. Pt seen and evaluated in ED and found to have COPD Exacerbation complicated by Acute on Chronic Respiratory Failure. Pt admitted to medical floor. Past History Past Medical History: COPD Past Surgical History: No surgical history, Other (reviewed) Social history: . denies: smoking, alcohol abuse, prescription drug abuse Family history: no significant family history (reviewed) Medications and Allergies Allergies Allergy/AdvReac Type Severity Reaction Status Date / Time peanut Allergy Angioedema Verified 07/23/16 00:17 ipratropium bromide AdvReac Shortness Verified 09/11/13 07:39 [From Atrovent] of Breath Home Medications Medication Instructions Recorded Confirmed Last Taken Type ALBUTEROL NEB's [Proventil 0.083% 2.5 mg IH Q4HRT PRN #60 nebu 09/16/17 Unknown Rx NEBS] Arformoterol Nebu [Brovana Nebu] 15 mcg IH Q12HRT #60 ml 09/16/17 11/24/17 Unknown Rx Montelukast [Singulair] 10 mg PO QHS #30 tablet 09/16/17 11/24/17 Unknown Rx ALBUTEROL Inhaler [ProAir HFA 2 puff IH QID PRN #1 inha 11/30/17 Unknown Rx Inhaler] Carvedilol [Coreg] 6.25 mg PO BID #60 tablet 11/30/17 Unknown Rx Fluticasone/Salmeterol [Advair 1 each IH BID #1 blst.w.dev 11/30/17 Unknown Rx 250-50 Diskus] Lisinopril [Zestril TAB] 5 mg PO QDAY #30 tablet 11/30/17 Unknown Rx Pantoprazole [Protonix TAB] 40 mg PO QDAY #30 tablet 11/30/17 Unknown Rx predniSONE [Deltasone] 10 mg PO .TAPER #48 tab 11/30/17 Unknown Rx Active Meds: Active Medications Magnesium Sulfate 2 gm/ Sodium (Chloride) 54 mls @ 25 mls/hr IV ONCE.ED ONE Stop: 01/14/18 13:09 Sodium Chloride (Nacl 0.9% 1000 Ml) 1,000 mls @ 125 mls/hr IV ONCE ONE Stop: 01/14/18 19:07 Review of Systems Constitutional: no weight loss, no weight gain, no fever, no chills Ears, nose, mouth and throat: no ear pain, no ear discharge, no tinnitis, no decreased hearing, no nose pain Breasts: no change in shape, no swelling, no mass Cardiovascular: no chest pain, no orthopnea, no palpitations, no rapid/ irregular heart beat, no edema Respiratory: cough, cough with sputum, excessive sputum, shortness of breath, no congestion, no pain, no pain on inspiration Gastrointestinal: no nausea, no vomiting, no diarrhea, no constipation Genitourinary Female: no pelvic pain, no flank pain, no menorrhagia, no dysuria Rectal: no pain, no bleeding Musculoskeletal: no neck stiffness, no neck pain, no shooting arm pain, no arm numbness/tingling, no low back pain, no shooting leg pain, no leg numbness/ tingling Integumentary: no rash, no pruritis, no redness, no sores, no wounds Neurological: no transient paralysis, no paralysis, no weakness, no parathesias , no numbness, no tingling, no seizures, no syncope Psychiatric: no anxiety, no memory loss, no change in sleep habits, no sleep disturbances, no insomnia, no hypersomnia, no change in appetite, no change in libido Endocrine: no cold intolerance, no heat intolerance, no polyphagia, no excessive thirst, no polydipsia, no polyuria Hematologic/Lymphatic: no easy bruising, no easy bleeding, no lymphadenopathy, no lymphedema Allergic/Immunologic: no urticaria, no allergic rhinitis, no wheezing, no persistent infections, no anaphylaxis Exam - Constitutional Vitals: Temp Pulse Resp BP Pulse Ox 98.5 F 96 H 18 165/79 96 01/14/18 10:12 01/14/18 10:06 01/14/18 10:12 01/14/18 10:06 01/14/18 10:12 General appearance: Present: mild distress, cachectic - EENT Eyes: Present: PERRL ENT: hearing intact, clear oral mucosa - Neck Neck: Present: supple, normal ROM - Respiratory Respiratory effort: labored Respiratory: bilateral: diminished, rhonchi - Cardiovascular Heart Sounds: Present: S1 & S2. Absent: rub, click - Extremities Extremities: pulses symmetrical, No edema Peripheral Pulses: within normal limits - Abdominal General gastrointestinal: Present: soft, non-tender, non-distended, normal bowel sounds Female genitourinary: Present: normal - Integumentary Integumentary: Present: clear, warm, dry - Musculoskeletal Musculoskeletal: gait normal, strength equal bilaterally - Psychiatric Psychiatric: appropriate mood/affect, intact judgment & insight - Neurologic Neurologic: CNII-XII intact, moves all extremities Results - Labs CBC & Chem 7: 01/14/18 09:40 01/14/18 09:40 Labs: Abnormal lab results 01/14/18 01/14/18 Range/Units 09:40 09:40 WBC 11.6 H (4.5-11.0) K/mm3 RBC 3.48 L (3.65-5.03) M/mm3 MCV 106 H (79-97) fl MCH 34 H (28-32) pg [place] % (Auto) 9.2 H (0.0-7.3) % [place] # 1.1 H (0.0-0.8) K/mm3 Seg Neutrophils % 72.7 H (40.0-70.0) % Seg Neutrophils # 8.4 H (1.8-7.7) K/mm3 Sodium 149 H (137-145) mmol/L Carbon Dioxide 41 H* (22-30) mmol/L Creatinine 0.3 L (0.7-1.2) mg/dL Assessment and Plan - Patient Problems (1) COPD with exacerbation Current Visit: Yes Status: Acute Plan to address problem: Supplemental oxygen, nebulizer therapy, IV steroid therapy, IV antibiotic therapy, (2) Acute and chronic respiratory failure with hypercapnia Current Visit: No Status: Acute Plan to address problem: supplemental oxygen, nebulizer therapy, ABG, NIPPV as clinically indicated., pulse oximetry (3) HTN (hypertension) Current Visit: Yes Status: Acute Qualifiers: Hypertension type: essential hypertension Qualified Code(s): I10 - Essential (primary) hypertension Plan to address problem: monitor bp q shift, continue medical management, continue INGRID Inhibitor therapy (4) GERD (gastroesophageal reflux disease) Current Visit: Yes Status: Acute Qualifiers: Esophagitis presence: without esophagitis Qualified Code(s): K21.9 - Gastro -esophageal reflux disease without esophagitis Plan to address problem: PPI therapy, supportive care (5) DVT prophylaxis Current Visit: No Status: Acute Plan to address problem: SCD to BLE while in bed
[2018-01-14] MEDS ORDERED: SODIUM CHLORIDE FLUSH SYRINGE 10 ML IV PRN (11:29)
[2018-01-14] MEDS ORDERED: ZOFRAN IV PRN (11:29)
[2018-01-14] MEDS ORDERED: BABY ASPIRIN PO ONE (11:40)
[2018-01-14] MEDS: TYLENOL PO PRN (11:53)
[2018-01-14] MEDS ORDERED: BABY ASPIRIN ONE (11:56)
[2018-01-14] MEDS ORDERED: TYLENOL ONE (11:57)
[2018-01-14] MEDS ORDERED: DELTASONE PO SCH (12:00)
[2018-01-14] MEDS ORDERED: ATIVAN IV ONE (12:07)
[2018-01-14] MEDS ORDERED: ATIVAN ONE (12:09)
[2018-01-14] MEDS: PULMICORT IH SCH (21:16)
[2018-01-14] MEDS: BROVANA NEBU IH SCH ×2 (21:16→21:17)
[2018-01-14] MEDS ORDERED: NON-FORMULARY (Fluticasone/Salmeterol [Advair 250-50 Diskus] 1 EACH) IH SCH (22:00)
--- NOTE | 2018-01-14 22:16 | Consultation ---
History of Present Illness Consult date: 01/14/18 Reason for consult: dyspnea, cough, COPD History of present illness: PULMONARY AND CRITICAL CARE CONSULTATION Dr. Zamarripa thank you for asking us to participate in the care of this Patient. 62 YO Female with History of COPD, HTN, GERD, Chronic Respiratory Failure on 3L Home oxygen presents to ED with shortness of breath and cough.Patient coughing up sme white sputum. Patients shortness of breath got worse for last few days and EMS was called in and brought her to the emergency room. Pt denies fever, chills, CP, Palpitations, NVD, Trauma, Hemoptysis, leg swelling, calf pain, Syncope, recent ill contacts. Pt states that she ran out of oxygen. Pt states that increased nebulizer treatments were used without relief. Pt seen and evaluated in ED and found to have COPD Exacerbation complicated by Acute on Chronic Respiratory Failure. Patients blood gases shwed PH 7.22 PCO2 101 PO2 73 HCO3 42 O2 saturation 87 on 40 FIO2. Patient placed on BIPAP 20/8, FIO2 35%, Rate 20. Repeating blood gases tomorrow. Patient alert, awake, Oriented. Patient says she is breathing better since she admitted to the hospital Patient has history of smoking 1 1/2 pack a day x 20 years. says stopped smoking 3 years ago. Patient says she is still smoking now and then.Drinks alcohol. Used to smoke Marijuana in the past. 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 Past History Past Medical History: COPD, GERD, hypertension Past Surgical History: No surgical history, Other (reviewed) Social history: , smoking, alcohol abuse. denies: prescription drug abuse Family history: no significant family history (reviewed) Medications and Allergies Allergies Allergy/AdvReac Type Severity Reaction Status Date / Time peanut Allergy Angioedema Verified 07/23/16 00:17 ipratropium bromide AdvReac Shortness Verified 09/11/13 07:39 [From Atrovent] of Breath Home Medications Medication Instructions Recorded Confirmed Last Taken Type ALBUTEROL NEB's [Proventil 0.083% 2.5 mg IH Q4HRT PRN #60 nebu 09/16/17 Unknown Rx NEBS] Arformoterol Nebu [Brovana Nebu] 15 mcg IH Q12HRT #60 ml 09/16/17 11/24/17 Unknown Rx Montelukast [Singulair] 10 mg PO QHS #30 tablet 09/16/17 11/24/17 Unknown Rx ALBUTEROL Inhaler [ProAir HFA 2 puff IH QID PRN #1 inha 11/30/17 Unknown Rx Inhaler] Carvedilol [Coreg] 6.25 mg PO BID #60 tablet 11/30/17 Unknown Rx Fluticasone/Salmeterol [Advair 1 each IH BID #1 blst.w.dev 11/30/17 Unknown Rx 250-50 Diskus] Lisinopril [Zestril TAB] 5 mg PO QDAY #30 tablet 11/30/17 Unknown Rx Pantoprazole [Protonix TAB] 40 mg PO QDAY #30 tablet 11/30/17 Unknown Rx predniSONE [Deltasone] 10 mg PO .TAPER #48 tab 11/30/17 Unknown Rx Active Meds: Active Medications Acetaminophen (Tylenol) 650 mg PO Q4H PRN PRN Reason: Pain MILD(1-3)/Fever >100.5/PÉREZ Last Admin: 01/14/18 11:53 Dose: 650 mg Albuterol (Proventil) 2.5 mg IH Q3HRT PRN PRN Reason: Shortness Of Breath Arformoterol Tartrate (Brovana Nebu) 15 mcg IH Q12HRT [facility] Last Admin: 01/14/18 21:16 Dose: 15 mcg Arformoterol Tartrate (Brovana Nebu) 15 mcg IH Q12HRT [facility] Last Admin: 01/14/18 21:17 Dose: Not Given Budesonide (Pulmicort) 0.5 mg IH Q12HRT [facility] Last Admin: 01/14/18 21:16 Dose: 0.5 mg Carvedilol (Coreg) 6.25 mg PO BID [facility] Famotidine (Pepcid) 20 mg PO BID [facility] Lisinopril (Zestril) 5 mg PO QDAY [facility] Methylprednisolone Sodium Succinate (Solu-Medrol) 40 mg IV Q12HR [facility] Montelukast Sodium (Singulair) 10 mg PO QHS [facility] Ondansetron HCl (Zofran) 4 mg IV Q8H PRN PRN Reason: Nausea And Vomiting Pantoprazole Sodium (Protonix) 40 mg PO QDAY [facility] Prednisone (Deltasone) 10 mg PO .TAPER [facility] Sodium Chloride (Sodium Chloride Flush Syringe 10 Ml) 10 ml IV BID [facility] Sodium Chloride (Sodium Chloride Flush Syringe 10 Ml) 10 ml IV PRN PRN PRN Reason: LINE FLUSH Review of Systems All systems: negative Physical Examination Vital signs: Vital Signs Temp Pulse Resp BP Pulse Ox 98.2 F 98 H 18 167/73 93 01/14/18 08:41 01/14/18 08:41 01/14/18 08:41 01/14/18 08:41 01/14/18 08:41 General appearance: no acute distress, alert Eyes: non-icteric ENT: oropharynx moist Neck: supple, no JVD Effort: mildly labored Ascultation: Bilateral: diminished breath sounds, other (Prolonged expiratory phase.) Cardiovascular: regular rate and rhythm Gastrointestinal: normoactive bowel sounds, soft, non-tender Integumentary: normal Extremities: no cyanosis, no edema Musculoskeletal: no deformities Gait: poor gait normal mental status, non-focal exam, pupils equal and round, CN II-XII normal mood appropriate Results - Laboratory Findings CBC and BMP: 01/14/18 09:40 01/14/18 09:40 ABG POC ABG pH 7.223 (7.35-7.45) L 01/14/18 17:40 POC ABG pCO2 101.1 (35-45) H 01/14/18 17:40 POC ABG pO2 73 (80-105) L 01/14/18 17:40 POC ABG HCO3 41.7 01/14/18 17:40 POC ABG Total CO2 45 01/14/18 17:40 POC ABG O2 Sat 89 01/14/18 17:40 Abnormal lab findings: Abnormal Labs 01/14/18 01/14/18 01/14/18 09:40 09:40 12:32 WBC 11.6 H RBC 3.48 L MCV 106 H MCH 34 H [place] % (Auto) 9.2 H [place] # 1.1 H Seg Neutrophils % 72.7 H Seg Neutrophils # 8.4 H POC ABG pH 7.267 L POC ABG pCO2 91.9 H POC ABG pO2 51 L Sodium 149 H Carbon Dioxide 41 H* Creatinine 0.3 L 01/14/18 01/14/18 16:03 17:40 WBC RBC MCV MCH [place] % (Auto) [place] # Seg Neutrophils % Seg Neutrophils # POC ABG pH 7.190 L 7.223 L POC ABG pCO2 118.5 H 101.1 H POC ABG pO2 73 L Sodium Carbon Dioxide Creatinine - Diagnostic Findings Chest x-ray: report reviewed (Reported cardiomegaly. No acute cardiopulmonary findings reported.), image reviewed Assessment and Plan 62 YO Female with History of COPD, HTN, GERD, Chronic Respiratory Failure on 3L Home oxygen presents to ED with shortness of breath and cough.Patient coughing up sme white sputum. Patients shortness of breath got worse for last few days and EMS was called in and brought her to the emergency room. Pt denies fever, chills, CP, Palpitations, NVD, Trauma, Hemoptysis, leg swelling, calf pain, Syncope, recent ill contacts. Pt states that she ran out of oxygen. Pt states that increased nebulizer treatments were used without relief. Pt seen and evaluated in ED and found to have COPD Exacerbation complicated by Acute on Chronic Respiratory Failure. Patients blood gases shwed PH 7.22 PCO2 101 PO2 73 HCO3 42 O2 saturation 87 on 40 FIO2. Patient placed on BIPAP 20/8, FIO2 35%, Rate 20. Repeating blood gases tomorrow. Patient alert, awake, Oriented. Patient says she is breathing better since she admitted to the hospital Patient has history of smoking 1 1/2 pack a day x 20 years. says stopped smoking 3 years ago. Patient says she is still smoking now and then.Drinks alcohol. Used to smoke Marijuana in the past. 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 I spent critical care time of 50 minutes on this patient to get history, review the chart, review chest xray, lab results, talking to the nursing staff and respiratory therapy and work out plan of treatment. - Patient Problems (1) Acute and chronic respiratory failure with hypercapnia Current Visit: No Status: Acute Plan to address problem: BIPAP 20/8, rate 20, FIO2 35% ABGs tomorrow. Albuterol aerosol treatments q 6 hours. Continue I/V solumedrol Recommend S/C Lovenox for DVT prophylaxis. Continue Protonix. Recommend PO Zithromax. (2) COPD with exacerbation Current Visit: Yes Status: Acute Plan to address problem: BIPAP 20/8, rate 20, FIO2 35% ABGs tomorrow. Albuterol aerosol treatments q 6 hours. Continue I/V solumedrol Recommend S/C Lovenox for DVT prophylaxis. Continue Protonix. Recommend PO Zithromax. Counselled to stop smoking. PFTs as out patient. (3) GERD (gastroesophageal reflux disease) Current Visit: Yes Status: Acute Qualifiers: Esophagitis presence: without esophagitis Qualified Code(s): K21.9 - Gastro -esophageal reflux disease without esophagitis Plan to address problem: Continue Protonix. (4) HTN (hypertension) Current Visit: Yes Status: Acute Qualifiers: Hypertension type: essential hypertension Qualified Code(s): I10 - Essential (primary) hypertension Plan to address problem: Management as per primary care.
[2018-01-14] MEDS: SINGULAIR PO SCH (23:17)
[2018-01-14] MEDS: COREG PO SCH (23:18)
[2018-01-14] MEDS: PEPCID PO SCH (23:18)
[2018-01-14] MEDS: SODIUM CHLORIDE FLUSH SYRINGE 10 ML IV SCH (23:18)
[2018-01-15] MEDS: TYLENOL PO PRN ×4 (04:49→22:24)
[2018-01-15] MEDS: BROVANA NEBU IH SCH ×3 (07:57→20:24)
[2018-01-15] MEDS: PULMICORT IH SCH ×2 (07:57→20:24)
--- NOTE | 2018-01-15 11:12 | Progress Note ---
Assessment and Plan Assessment and plan: Acute COPD exacerbation Hypercapenic Respirtory failure-Acute on chronic Respiratory acidosis Per patient faile oxygen concentrator at home EX-Tobacco user gerd Plan * Abg Shows some improvement, will maintain low threashod to moving to ICU * Continue supportive care with BIPAP support * Change to Dr Quintana group fro Pulmonary * Continue LABA and MELANY, with Systemic Corticosteroids * Start on emperic antibiotic coverage. * DVT/GI prophy * Plan discussed with patient and care team, including respiratory therapist and Nursing staff The high probability of a clinically significant, sudden or life threatening deterioration of the [PULMONARY] system(s) required my full and direct attention , intervention and personal management. The aggregate critical care time was [35 ] minutes. This time is in addition to time spent performing reported procedures but includes the following: [X] Data Review and interpretation [X] Patient assessment and monitoring of vital signs [X] Documentation [X] Medication orders and management History Interval history: Patient seen and examined this morning, still with shortness of breath requiring BIPAP but appears to be improving. Able to complete sentences, Hospitalist Physical - Physical exam Narrative exam: VITAL SIGNS: Reviewed. GENERAL: The patient appeared well nourished and normally developed. Vital signs as documented. HEAD: No signs of head trauma. EYES: Pupils are equal. Extraocular motions intact. EARS: Hearing grossly intact. MOUTH: Oropharynx is normal. NECK: No adenopathy, no JVD. CHEST: Chest with diminished breath sounds bilaterally. No wheezes, rales, or rhonchi. CARDIAC: Regular rate and rhythm. S1 and S2, without murmurs, gallops, or rubs. VASCULAR: No Edema. Peripheral pulses normal and equal in all extremities. ABDOMEN: Soft, without detectable tenderness. No sign of distention. No rebound or guarding, and no masses palpated. Bowel Sounds normal. MUSCULOSKELETAL: Good range of motion of all major joints. Extremities without clubbing, cyanosis or edema. NEUROLOGIC EXAM: Alert and oriented x 3. No focal sensory or strength deficits. Speech normal. Follows commands. PSYCHIATRIC: Mood normal. SKIN: No rash or lesions. - Constitutional Vitals: Temp Pulse Resp BP Pulse Ox 97.8 F 105 H 30 H 150/74 96 01/15/18 08:08 01/15/18 08:08 01/15/18 08:08 01/15/18 08:08 01/15/18 08:08 General appearance: Present: mild distress, cachectic Results - Labs CBC & Chem 7: 01/14/18 09:40 01/14/18 09:40 Labs: Laboratory Last Values WBC 11.6 K/mm3 (4.5-11.0) H 01/14/18 09:40 RBC 3.48 M/mm3 (3.65-5.03) L 01/14/18 09:40 Hgb 11.9 gm/dl (10.1-14.3) 01/14/18 09:40 Hct 37.0 % (30.3-42.9) 01/14/18 09:40 MCV 106 fl (79-97) H 01/14/18 09:40 MCH 34 pg (28-32) H 01/14/18 09:40 MCHC 32 % (30-34) 01/14/18 09:40 RDW 14.9 % (13.2-15.2) 01/14/18 09:40 Plt Count 299 K/mm3 (140-440) 01/14/18 09:40 Lymph % (Auto) 17.4 % (13.4-35.0) 01/14/18 09:40 Sac % (Auto) 9.2 % (0.0-7.3) H 01/14/18 09:40 Eos % (Auto) 0.5 % (0.0-4.3) 01/14/18 09:40 Baso % (Auto) 0.2 % (0.0-1.8) 01/14/18 09:40 Lymph # 2.0 K/mm3 (1.2-5.4) 01/14/18 09:40 Sac # 1.1 K/mm3 (0.0-0.8) H 01/14/18 09:40 Eos # 0.1 K/mm3 (0.0-0.4) 01/14/18 09:40 Baso # 0.0 K/mm3 (0.0-0.1) 01/14/18 09:40 Seg Neutrophils % 72.7 % (40.0-70.0) H 01/14/18 09:40 Seg Neutrophils # 8.4 K/mm3 (1.8-7.7) H 01/14/18 09:40 POC ABG pH 7.306 (7.35-7.45) L 01/15/18 08:29 POC ABG pCO2 83.5 (35-45) H 01/15/18 08:29 POC ABG pO2 77 (80-105) L 01/15/18 08:29 POC ABG HCO3 41.7 01/15/18 08:29 POC ABG Total CO2 44 01/15/18 08:29 POC ABG O2 Sat 93 01/15/18 08:29 POC ABG Base Excess 15 01/15/18 08:29 FiO2 35 % 01/15/18 08:29 Sodium 149 mmol/L (137-145) H 01/14/18 09:40 Potassium 3.7 mmol/L (3.6-5.0) 01/14/18 09:40 Chloride 100.3 mmol/L (98-107) 01/14/18 09:40 Carbon Dioxide 41 mmol/L (22-30) H* 01/14/18 09:40 Anion Gap 11 mmol/L 01/14/18 09:40 BUN 7 mg/dL (7-17) 01/14/18 09:40 Creatinine 0.3 mg/dL (0.7-1.2) L 01/14/18 09:40 Estimated GFR > 60 ml/min 01/14/18 09:40 BUN/Creatinine Ratio 23 % 01/14/18 09:40 Glucose 84 mg/dL (65-100) 01/14/18 09:40 Calcium 9.1 mg/dL (8.4-10.2) 01/14/18 09:40 Troponin T < 0.010 ng/mL (0.00-0.029) 01/14/18 09:40
[2018-01-15] MEDS: LEVAQUIN 750MG/150ML 750 MG/150 ML BAG IV SCH (11:22)
[2018-01-15] MEDS: PROTONIX PO SCH (11:23)
[2018-01-15] MEDS: COREG PO SCH ×2 (11:23→22:23)
[2018-01-15] MEDS: ZESTRIL PO SCH (11:23)
[2018-01-15] MEDS: PEPCID PO SCH ×2 (11:23→22:23)
[2018-01-15] MEDS: SODIUM CHLORIDE FLUSH SYRINGE 10 ML IV SCH ×2 (11:24→22:24)
--- NOTE | 2018-01-15 13:31 | Consultation ---
History of Present Illness Consult date: 01/15/18 Reason for consult: dyspnea, COPD History of present illness: This is a 62-year-old female that I am asked to see for COPD exacerbation and what appears to be acute on chronic respiratory failure episode. She follows with Dr. Quintana at the pulmonary office and was admitted to hospitalist service , after what appears to be exacerbation of her COPD. She was seen by Dr. Murillo initially, but were asked to follow from the pulmonary standpoint. She states to me that she started having some wheezing at home and she uses oxygen plus CPAP/BiPAP device. She states that her oxygen machine "broke during the night", and she started suffocating at home; being rushed to the ER for acute care. Not smoking per patient. She reports some expectoration but denies fever chills or hemoptysis. She saw Dr. Quintana reportedly last week, no changes seen on ongoing treatment at that time Past History Past Medical History: COPD, GERD, hypertension Past Surgical History: No surgical history, Other (reviewed) Social history: , smoking, alcohol abuse. denies: prescription drug abuse Family history: no significant family history (reviewed) Medications and Allergies Allergies Allergy/AdvReac Type Severity Reaction Status Date / Time peanut Allergy Angioedema Verified 07/23/16 00:17 ipratropium bromide AdvReac Shortness Verified 09/11/13 07:39 [From Atrovent] of Breath Home Medications Medication Instructions Recorded Confirmed Last Taken Type Montelukast [Singulair] 10 mg PO QHS #30 tablet 09/16/17 11/24/17 Unknown Rx ALBUTEROL Inhaler [ProAir HFA 2 puff IH QID PRN #1 inha 11/30/17 01/15/18 Unknown Rx Inhaler] Carvedilol [Coreg] 6.25 mg PO BID #60 tablet 11/30/17 01/15/18 Unknown Rx Lisinopril [Zestril TAB] 5 mg PO QDAY #30 tablet 11/30/17 01/15/18 Unknown Rx predniSONE [Deltasone] 10 mg PO .TAPER #48 tab 11/30/17 01/15/18 Unknown Rx Active Meds: Active Medications Acetaminophen (Tylenol) 650 mg PO Q4H PRN PRN Reason: Pain MILD(1-3)/Fever >100.5/PÉREZ Last Admin: 01/15/18 11:24 Dose: 650 mg Albuterol (Proventil) 2.5 mg IH Q3HRT PRN PRN Reason: Shortness Of Breath Arformoterol Tartrate (Brovana Nebu) 15 mcg IH Q12HRT [facility] Last Admin: 01/15/18 07:57 Dose: 15 mcg Budesonide (Pulmicort) 0.5 mg IH Q12HRT [facility] Last Admin: 01/15/18 07:57 Dose: 0.5 mg Carvedilol (Coreg) 6.25 mg PO BID [facility] Last Admin: 01/15/18 11:23 Dose: 6.25 mg Famotidine (Pepcid) 20 mg PO BID [facility] Last Admin: 01/15/18 11:23 Dose: 20 mg Levofloxacin/Dextrose (Levaquin 750mg/150ml) 750 mg in 150 mls @ 100 mls/hr IV Q24HR [facility]; Protocol Last Admin: 01/15/18 11:22 Dose: 100 mls/hr Lisinopril (Zestril) 5 mg PO QDAY [facility] Last Admin: 01/15/18 11:23 Dose: 5 mg Methylprednisolone Sodium Succinate (Solu-Medrol) 40 mg IV Q8HR [facility] Montelukast Sodium (Singulair) 10 mg PO QHS [facility] Last Admin: 01/14/18 23:17 Dose: 10 mg Ondansetron HCl (Zofran) 4 mg IV Q8H PRN PRN Reason: Nausea And Vomiting Pantoprazole Sodium (Protonix) 40 mg PO QDAY [facility] Last Admin: 01/15/18 11:23 Dose: 40 mg Prednisone (Deltasone) 10 mg PO .TAPER [facility] Sodium Chloride (Sodium Chloride Flush Syringe 10 Ml) 10 ml IV BID [facility] Last Admin: 01/15/18 11:24 Dose: 10 ml Sodium Chloride (Sodium Chloride Flush Syringe 10 Ml) 10 ml IV PRN PRN PRN Reason: LINE FLUSH Review of Systems Constitutional: fatigue, weakness Cardiovascular: palpitations, shortness of breath, dyspnea on exertion, paroxysmal nocturnal dyspnea Respiratory: shortness of breath, dyspnea on exertion, no cough with sputum, no excessive sputum, no hemoptysis Gastrointestinal: no nausea, no vomiting, no diarrhea Musculoskeletal: no neck pain, no shooting arm pain Psychiatric: insomnia Physical Examination Vital signs: Vital Signs Temp Pulse Resp BP Pulse Ox 98.2 F 98 H 18 167/73 93 01/14/18 08:41 01/14/18 08:41 01/14/18 08:41 01/14/18 08:41 01/14/18 08:41 General appearance: no acute distress, alert, other (on BiPAP machine) ENT: oropharynx moist Neck: supple, no JVD Ascultation: Bilateral: clear (prolonged expiratory phase), diminished breath sounds, wheezes, rales Cardiovascular: regular rate and rhythm Gastrointestinal: normoactive bowel sounds, non-distended Integumentary: normal Extremities: no cyanosis, no edema, no ischemia or petechiae Musculoskeletal: no deformities normal mental status, non-focal exam, CN II-XII normal, motor strength normal and mood appropriate, affect normal Results - Laboratory Findings CBC and BMP: 01/14/18 09:40 01/14/18 09:40 ABG POC ABG pH 7.306 (7.35-7.45) L 01/15/18 08:29 POC ABG pCO2 83.5 (35-45) H 01/15/18 08:29 POC ABG pO2 77 (80-105) L 01/15/18 08:29 POC ABG HCO3 41.7 01/15/18 08:29 POC ABG Total CO2 44 01/15/18 08:29 POC ABG O2 Sat 93 01/15/18 08:29 Abnormal lab findings: Abnormal Labs 01/14/18 01/14/18 01/14/18 09:40 09:40 12:32 WBC 11.6 H RBC 3.48 L MCV 106 H MCH 34 H [place] % (Auto) 9.2 H [place] # 1.1 H Seg Neutrophils % 72.7 H Seg Neutrophils # 8.4 H POC ABG pH 7.267 L POC ABG pCO2 91.9 H POC ABG pO2 51 L Sodium 149 H Carbon Dioxide 41 H* Creatinine 0.3 L 01/14/18 01/14/18 01/15/18 16:03 17:40 08:29 WBC RBC MCV MCH [place] % (Auto) [place] # Seg Neutrophils % Seg Neutrophils # POC ABG pH 7.190 L 7.223 L 7.306 L POC ABG pCO2 118.5 H 101.1 H 83.5 H POC ABG pO2 73 L 77 L Sodium Carbon Dioxide Creatinine - Diagnostic Findings Chest x-ray: report reviewed, image reviewed Assessment and Plan Acute exacerbation of chronic hypercapnic respiratory failure. Combination of COPD exacerbation plus oxygen concentrator failure per patient COPD with acute exacerbation Former smoker Recommendations Continue BiPAP support-currently on 20/8 cm H2O, RRR 20 bpm, FiO2 35% We'll continue with this treatment next 24 hours and reevaluate on just oxygen support in the morning Albuterol 2.5 milligram nebulizations every 4-6 hours with or without ipratropium Solu-Medrol 40-60 mg IV every 6-8 hours Oxygen support via nasal cannula or mask to maintain oximetry over 92% Add Brovana 50 g nebulizations every 12 hours hours DVT prophylaxis At empiric antibiotics-example, Rocephin was ceftriaxone for 5-7 days If there is respiratory deterioration, consider transfer to the ICU. However, this point the patient appears to be improving Discussed findings with patient in detail. All questions answered. Thanks
[2018-01-15] MEDS: PROVENTIL IH PRN ×2 (18:00→23:38)
[2018-01-15] MEDS: SINGULAIR PO SCH (22:24)
[2018-01-16] MEDS: TYLENOL PO PRN ×2 (08:49→18:27)
[2018-01-16 08:59] LABS: Hematocrit 34.8 % (30.3-42.9); Mean Corpuscular HGB Conc 32 % (30-34); Mean Corpuscular Hemoglobin 34 pg (28-32); Mean Corpuscular Volume 106 fl (79-97); Platelet Count 292 K/mm3 (140-440); Red Blood Count 3.28 M/mm3 (3.65-5.03); Red Cell Distribution Width 14.7 % (13.2-15.2)
--- NOTE | 2018-01-16 09:05 | Progress Note ---
Assessment and Plan Assessment and plan: Acute COPD exacerbation Hypercapenic Respirtory failure-Acute on chronic Respiratory acidosis Per patient faile oxygen concentrator at home EX-Tobacco user gerd Plan * Abg Shows some improvement, will maintain low threshold to moving to ICU * Continue supportive care with BIPAP support * Leukocytosis likely secondary to Steroids * Change to Dr Mariano woodson fro Pulmonary * Continue Pulmocort and Brovana * Continue LABA and MELANY, with Systemic Corticosteroids * c/w on empiric antibiotic coverage. * DVT/GI prophy * Plan discussed with patient and care team, including respiratory therapist and Nursing staff History Interval history: Patient seen and examined this morning, improving, now off the BIPAP and can use during HS Hospitalist Physical - Physical exam Narrative exam: VITAL SIGNS: Reviewed. GENERAL: The patient appeared well nourished and normally developed. Vital signs as documented. HEAD: No signs of head trauma. EYES: Pupils are equal. Extraocular motions intact. EARS: Hearing grossly intact. MOUTH: Oropharynx is normal. NECK: No adenopathy, no JVD. CHEST: Chest with diminished breath sounds bilaterally. No wheezes, rales, or rhonchi. CARDIAC: Regular rate and rhythm. S1 and S2, without murmurs, gallops, or rubs. VASCULAR: No Edema. Peripheral pulses normal and equal in all extremities. ABDOMEN: Soft, without detectable tenderness. No sign of distention. No rebound or guarding, and no masses palpated. Bowel Sounds normal. MUSCULOSKELETAL: Good range of motion of all major joints. Extremities without clubbing, cyanosis or edema. NEUROLOGIC EXAM: Alert and oriented x 3. No focal sensory or strength deficits. Speech normal. Follows commands. PSYCHIATRIC: Mood normal. SKIN: No rash or lesions. - Constitutional Vitals: Temp Pulse Resp BP Pulse Ox 97.5 F L 60 20 160/72 96 01/15/18 19:15 01/16/18 05:46 01/16/18 05:46 01/16/18 05:46 01/16/18 05:46 General appearance: Present: mild distress, cachectic Results - Labs CBC & Chem 7: 01/16/18 07:58 01/16/18 07:58 Labs: Laboratory Last Values WBC 12.6 K/mm3 (4.5-11.0) H 01/16/18 07:58 RBC 3.28 M/mm3 (3.65-5.03) L 01/16/18 07:58 Hgb 11.0 gm/dl (10.1-14.3) 01/16/18 07:58 Hct 34.8 % (30.3-42.9) 01/16/18 07:58 MCV 106 fl (79-97) H 01/16/18 07:58 MCH 34 pg (28-32) H 01/16/18 07:58 MCHC 32 % (30-34) 01/16/18 07:58 RDW 14.7 % (13.2-15.2) 01/16/18 07:58 Plt Count 292 K/mm3 (140-440) 01/16/18 07:58 Lymph % (Auto) 17.4 % (13.4-35.0) 01/14/18 09:40 [place] % (Auto) 9.2 % (0.0-7.3) H 01/14/18 09:40 Eos % (Auto) 0.5 % (0.0-4.3) 01/14/18 09:40 Baso % (Auto) 0.2 % (0.0-1.8) 01/14/18 09:40 Lymph # 2.0 K/mm3 (1.2-5.4) 01/14/18 09:40 [place] # 1.1 K/mm3 (0.0-0.8) H 01/14/18 09:40 Eos # 0.1 K/mm3 (0.0-0.4) 01/14/18 09:40 Baso # 0.0 K/mm3 (0.0-0.1) 01/14/18 09:40 Seg Neutrophils % 72.7 % (40.0-70.0) H 01/14/18 09:40 Seg Neutrophils # 8.4 K/mm3 (1.8-7.7) H 01/14/18 09:40 POC ABG pH 7.306 (7.35-7.45) L 01/15/18 08:29 POC ABG pCO2 83.5 (35-45) H 01/15/18 08:29 POC ABG pO2 77 (80-105) L 01/15/18 08:29 POC ABG HCO3 41.7 01/15/18 08:29 POC ABG Total CO2 44 01/15/18 08:29 POC ABG O2 Sat 93 01/15/18 08:29 POC ABG Base Excess 15 01/15/18 08:29 FiO2 35 % 01/15/18 08:29 Sodium 149 mmol/L (137-145) H 01/14/18 09:40 Potassium 3.7 mmol/L (3.6-5.0) 01/14/18 09:40 Chloride 100.3 mmol/L (98-107) 01/14/18 09:40 Carbon Dioxide 41 mmol/L (22-30) H* 01/14/18 09:40 Anion Gap 11 mmol/L 01/14/18 09:40 BUN 7 mg/dL (7-17) 01/14/18 09:40 Creatinine 0.3 mg/dL (0.7-1.2) L 01/14/18 09:40 Estimated GFR > 60 ml/min 01/14/18 09:40 BUN/Creatinine Ratio 23 % 01/14/18 09:40 Glucose 84 mg/dL (65-100) 01/14/18 09:40 Calcium 9.1 mg/dL (8.4-10.2) 01/14/18 09:40 Troponin T < 0.010 ng/mL (0.00-0.029) 01/14/18 09:40
[2018-01-16] MEDS: COREG PO SCH ×2 (09:09→21:47)
[2018-01-16] MEDS: ZESTRIL PO SCH (09:10)
[2018-01-16] MEDS: PROTONIX PO SCH (09:10)
[2018-01-16] MEDS: SODIUM CHLORIDE FLUSH SYRINGE 10 ML IV SCH ×2 (09:11→21:47)
[2018-01-16] MEDS: PEPCID PO SCH ×2 (09:11→21:46)
[2018-01-16] MEDS: LEVAQUIN 750MG/150ML 750 MG/150 ML BAG IV SCH (09:12)
[2018-01-16 09:17] LABS: BUN/Creatinine Ratio 40; Blood Urea Nitrogen 12 mg/dL (7-17); Calcium 9.2 mg/dL (8.4-10.2); Hemolysis Index 4
[2018-01-16] MEDS: PULMICORT IH SCH ×2 (10:07→21:00)
[2018-01-16] MEDS: BROVANA NEBU IH SCH ×2 (10:08→21:00)
[2018-01-16] MEDS: PROVENTIL IH PRN ×2 (10:09→18:13)
[2018-01-16] MEDS ORDERED: XANAX PO PRN (11:12)
--- NOTE | 2018-01-16 13:23 | Progress Note ---
Assessment and Plan Acute exacerbation of chronic hypercapnic respiratory failure. Combination of COPD exacerbation plus oxygen concentrator failure per patient COPD with acute exacerbation Former smoker Recommendations Continue BiPAP support at night and daytime as needed Continue nasal cannula support during the daytime as necessary Albuterol 2.5 milligram nebulizations every 4-6 hours with or without ipratropium Solu-Medrol 40-60 mg IV every 6-8 hours Brovana 50 g nebulizations every 12 hours hours DVT prophylaxis Continue antibiotics and complete right 7 days of treatment Out of bed as tolerated May initiate by mouth prednisone for tapered down on next 24hours Subjective Date of service: 01/16/18 Principal diagnosis: COPD, acute on chronic respiratory failure Interval history: Feeling better today. Able to use nasal cannula most of the morning. BiPAP well tolerated last night. No fever or significant expectoration Objective Vital Signs - 12hr 01/16/18 01/16/18 01/16/18 05:46 09:09 09:10 Pulse Rate 60 Pulse Rate [ Anterior] Respiratory 20 Rate Respiratory Rate [Anterior] Blood Pressure 160/72 160/67 160/70 O2 Sat by Pulse 96 Oximetry 01/16/18 01/16/18 01/16/18 10:05 10:18 10:26 Pulse Rate Pulse Rate [ 88 87 Anterior] Respiratory Rate Respiratory 20 18 Rate [Anterior] Blood Pressure O2 Sat by Pulse 95 Oximetry Constitutional: no acute distress, alert, other (on BiPAP machine) Eyes: non-icteric ENT: oropharynx moist Neck: supple, no JVD Effort: mildly labored Ascultation: Bilateral: clear (prolonged expiratory phase), diminished breath sounds Cardiovascular: regular rate and rhythm Gastrointestinal: normoactive bowel sounds, non-distended Integumentary: normal Extremities: no cyanosis, no edema, no ischemia or petechiae Neurologic: normal mental status, non-focal exam, CN II-XII normal, motor strength normal and Psychiatric: mood appropriate, affect normal CBC and BMP: 01/16/18 07:58 01/16/18 07:58 ABG, PT/INR, D-dimer: ABG POC ABG pH 7.306 (7.35-7.45) L 01/15/18 08:29 POC ABG pCO2 83.5 (35-45) H 01/15/18 08:29 POC ABG pO2 77 (80-105) L 01/15/18 08:29 POC ABG HCO3 41.7 01/15/18 08:29 POC ABG Total CO2 44 01/15/18 08:29 POC ABG O2 Sat 93 01/15/18 08:29 Abnormal lab findings: Abnormal Labs 01/14/18 01/14/18 01/14/18 09:40 09:40 12:32 WBC 11.6 H RBC 3.48 L MCV 106 H MCH 34 H [place] % (Auto) 9.2 H [place] # 1.1 H Seg Neutrophils % 72.7 H Seg Neutrophils # 8.4 H POC ABG pH 7.267 L POC ABG pCO2 91.9 H POC ABG pO2 51 L Sodium 149 H Chloride Carbon Dioxide 41 H* Creatinine 0.3 L Glucose 01/14/18 01/14/18 01/15/18 16:03 17:40 08:29 WBC RBC MCV MCH [place] % (Auto) Door # Seg Neutrophils % Seg Neutrophils # POC ABG pH 7.190 L 7.223 L 7.306 L POC ABG pCO2 118.5 H 101.1 H 83.5 H POC ABG pO2 73 L 77 L Sodium Chloride Carbon Dioxide Creatinine Glucose 01/16/18 01/16/18 07:58 07:58 WBC 12.6 H RBC 3.28 L MCV 106 H MCH 34 H Door % (Auto) Door # Seg Neutrophils % Seg Neutrophils # POC ABG pH POC ABG pCO2 POC ABG pO2 Sodium Chloride 97.1 L Carbon Dioxide 39 H Creatinine 0.3 L Glucose 113 H
[2018-01-16] MEDS: SINGULAIR PO SCH (21:46)
[2018-01-17 06:27] LABS: Hematocrit 34.8 % (30.3-42.9); Mean Corpuscular HGB Conc 32 % (30-34); Mean Corpuscular Hemoglobin 33 pg (28-32); Mean Corpuscular Volume 105 fl (79-97); Platelet Count 292 K/mm3 (140-440); Red Blood Count 3.31 M/mm3 (3.65-5.03); Red Cell Distribution Width 14.6 % (13.2-15.2)
[2018-01-17 06:49] LABS: BUN/Creatinine Ratio 40; Blood Urea Nitrogen 16 mg/dL (7-17); Hemolysis Index 6
[2018-01-17] MEDS: BROVANA NEBU IH SCH (07:45)
[2018-01-17] MEDS: PULMICORT IH SCH (07:45)
[2018-01-17] MEDS: ZESTRIL PO SCH (10:46)
[2018-01-17] MEDS: PEPCID PO SCH (10:47)
[2018-01-17] MEDS: COREG PO SCH (10:47)
[2018-01-17] MEDS: PROTONIX PO SCH (10:47)
[2018-01-17] MEDS: LEVAQUIN 750MG/150ML 750 MG/150 ML BAG IV SCH (10:48)
[2018-01-17] MEDS: SODIUM CHLORIDE FLUSH SYRINGE 10 ML IV SCH (10:50)
--- NOTE | 2018-01-17 12:29 | Progress Note ---
Assessment and Plan 62 y/o female with acute on chronic respiratory failure and COPD with exacerbation 1. Ensure that oxygen concentrator is working at home 2. sWtich to Prednisone 40 daily and taper as follows. 40x2, 20x2, 10x2 then stop 3. no objection to discharge today 4. Continue home COPD regimen Subjective Date of service: 01/17/18 Principal diagnosis: COPD, acute on chronic respiratory failure Interval history: No acute events. Back to baseline. Wants to go home. Objective Vital Signs - 12hr 01/17/18 01/17/18 01/17/18 07:45 07:55 08:07 Temperature 98.5 F Pulse Rate 64 Pulse Rate [ 62 63 Anterior Bilateral Throughout] Pulse Rate [ 62 Anterior] Respiratory 18 Rate Respiratory 20 20 Rate [Anterior Bilateral Throughout] Respiratory 20 Rate [Anterior] Blood Pressure 144/60 O2 Sat by Pulse 100 98 Oximetry 01/17/18 01/17/18 10:46 10:47 Temperature Pulse Rate 86 68 Pulse Rate [ Anterior Bilateral Throughout] Pulse Rate [ Anterior] Respiratory Rate Respiratory Rate [Anterior Bilateral Throughout] Respiratory Rate [Anterior] Blood Pressure O2 Sat by Pulse Oximetry Constitutional: no acute distress, alert, other (on BiPAP machine) Eyes: non-icteric ENT: oropharynx moist Neck: supple, no JVD Effort: mildly labored Ascultation: Bilateral: clear (prolonged expiratory phase), diminished breath sounds, wheezes, rales, other (Prolonged expiratory phase.) Cardiovascular: regular rate and rhythm Gastrointestinal: normoactive bowel sounds, non-distended Integumentary: normal Extremities: no cyanosis, no edema, no ischemia or petechiae Neurologic: normal mental status, non-focal exam, CN II-XII normal, motor strength normal and Psychiatric: mood appropriate, affect normal CBC and BMP: 01/17/18 05:52 01/17/18 05:52 ABG, PT/INR, D-dimer: ABG POC ABG pH 7.306 (7.35-7.45) L 01/15/18 08:29 POC ABG pCO2 83.5 (35-45) H 01/15/18 08:29 POC ABG pO2 77 (80-105) L 01/15/18 08:29 POC ABG HCO3 41.7 01/15/18 08:29 POC ABG Total CO2 44 01/15/18 08:29 POC ABG O2 Sat 93 01/15/18 08:29 Abnormal lab findings: Abnormal Labs 01/14/18 01/14/18 01/14/18 09:40 09:40 12:32 WBC 11.6 H RBC 3.48 L MCV 106 H MCH 34 H [place] % (Auto) 9.2 H [place] # 1.1 H Seg Neutrophils % 72.7 H Seg Neutrophils # 8.4 H POC ABG pH 7.267 L POC ABG pCO2 91.9 H POC ABG pO2 51 L Sodium 149 H Chloride Carbon Dioxide 41 H* Creatinine 0.3 L Glucose 01/14/18 01/14/18 01/15/18 16:03 17:40 08:29 WBC RBC MCV MCH [place] % (Auto) [place] # Seg Neutrophils % Seg Neutrophils # POC ABG pH 7.190 L 7.223 L 7.306 L POC ABG pCO2 118.5 H 101.1 H 83.5 H POC ABG pO2 73 L 77 L Sodium Chloride Carbon Dioxide Creatinine Glucose 01/16/18 01/16/18 01/17/18 07:58 07:58 05:52 WBC 12.6 H 12.4 H RBC 3.28 L 3.31 L MCV 106 H 105 H MCH 34 H 33 H [place] % (Auto) [place] # Seg Neutrophils % Seg Neutrophils # POC ABG pH POC ABG pCO2 POC ABG pO2 Sodium Chloride 97.1 L Carbon Dioxide 39 H Creatinine 0.3 L Glucose 113 H 01/17/18 05:52 WBC RBC MCV MCH [place] % (Auto) [place] # Seg Neutrophils % Seg Neutrophils # POC ABG pH POC ABG pCO2 POC ABG pO2 Sodium 146 H Chloride Carbon Dioxide 39 H Creatinine 0.4 L Glucose 154 H
--- NOTE | 2018-01-17 13:13 | Discharge Summary ---
Providers - Providers Date of Admission: 01/14/18 11:29 Attending physician: LUCIA GUNTER MD 01/15/18 08:27 Consult to Physician [CONS] Routine Comment: Consulting Provider: CAROL PRATER Physician Instructions: Reason For Exam: Hypercapenic Respiratory failure Primary care physician: [employer] TECHNICIAN Hospitalization Reason for admission: RESPIRATORY FAILURE Condition: Stable Hospital course: 62 YO Female with COPD, HTN, GERD, Chronic Respiratory Failure on 3L Home oxygen , Asthma presents to ED for evaluation. Pt states that she has experienced shortness of breath for the past 1 days with worsening symptoms over the same time frame. Pt acknowledges productive cough of thick clear sputum, with slightly increased sputum production over the past 3 days. Pt denies fever, chills, CP, Palpitations, NVD, Trauma, Hemoptysis, leg swelling, calf pain, Syncope, recent ill contacts. Pt states that she ran out of oxygen. Pt states that increased nebulizer treatments were used without relief. Pt seen and evaluated in ED and found to have COPD Exacerbation complicated by Acute on Chronic Respiratory Failure. Pt admitted to medical floor. Patient was treated with Continuous BIPAP with improvement and changed to nasal cannula. Patient reports that her oxygen machine was bad at home and that is what led to her copd exacerbation and it has now been fixed. She was seen by pulmonary and is being discharged with tapering dose of steroids and to follow with PCP and virologist on discharge. Discharge Diagnosis Acute COPD exacerbation Hypercapenic Respiratory failure-Acute on chronic Respiratory acidosis Per patient faile oxygen concentrator at home EX-Tobacco user GERD Disposition: [id number] HOME UNDER HOME TH Time spent for discharge: 35 mins Core Measure Documentation - Palliative Care Palliative Care/ Comfort Measures: Not Applicable - Core Measures Any of the following diagnoses?: none - VTE Discharge Requirements Deep Vein Thrombosis/Pulmonary Embolism Present on Admission: No Exam - Physical Exam Narrative exam: VITAL SIGNS: Reviewed. GENERAL: The patient appeared well nourished and normally developed. Vital signs as documented. HEAD: No signs of head trauma. EYES: Pupils are equal. Extraocular motions intact. EARS: Hearing grossly intact. MOUTH: Oropharynx is normal. NECK: No adenopathy, no JVD. CHEST: Chest with diminished breath sounds bilaterally. No wheezes, rales, or rhonchi. CARDIAC: Regular rate and rhythm. S1 and S2, without murmurs, gallops, or rubs. VASCULAR: No Edema. Peripheral pulses normal and equal in all extremities. ABDOMEN: Soft, without detectable tenderness. No sign of distention. No rebound or guarding, and no masses palpated. Bowel Sounds normal. MUSCULOSKELETAL: Good range of motion of all major joints. Extremities without clubbing, cyanosis or edema. NEUROLOGIC EXAM: Alert and oriented x 3. No focal sensory or strength deficits. Speech normal. Follows commands. PSYCHIATRIC: Mood normal. SKIN: No rash or lesions. - Constitutional Vitals: Temp Pulse Resp BP Pulse Ox 98.5 F 68 18 144/60 98 01/17/18 08:07 01/17/18 10:47 01/17/18 08:07 01/17/18 08:07 01/17/18 08:07 Plan Activity: advance as tolerated, fall precautions Diet: low salt Special Instructions: record daily BP diary Follow up with: PRIMARY CAREMD [Primary Care Provider] - 3-5 Days CAROL PRATER MD [Staff Physician] - 7 Days Prescriptions: Arformoterol Nebu [Brovana Nebu] 15 mcg IH Q12HRT #30 ml Budesonide [Pulmicort Respules] 0.5 mg IH Q12HRT #30 nebu Levofloxacin [Levaquin TAB] 750 mg PO Q24HR #3 tablet Pantoprazole [Protonix TAB] 40 mg PO QDAY #30 tablet predniSONE [Deltasone] 10 mg PO .TAPER #14 tab
[2018-01-17 13:19] VITALS: BP 163/63
[2018-01-18] MEDS ORDERED: DELTASONE PO SCH (10:00)
[2018-01-18] MEDS ORDERED: LEVAQUIN PO SCH (10:00)
== END 2018-01-17 15:35 | disposition home health service (06) | DRG 189 ==
LOC: ED 08:20 → 3A 11:29 → 4A 16:14
PROVIDERS: ADMIT Internal Medicine; ATTEND Internal Medicine
PROC: 4A033R1 Measurement of Arterial Saturation, Peripheral, Percutaneous Approach (ICD-10-PCS; principal; 2018-01-14)
PROC: 5A09357 Assistance with Respiratory Ventilation, Less than 24 Consecutive Hours, Continuous Positive Airway Pressure (ICD-10-PCS; 2018-01-14)
PROC: 5A09357 Assistance with Respiratory Ventilation, Less than 24 Consecutive Hours, Continuous Positive Airway Pressure (ICD-10-PCS; 2018-01-15)
PROC: 5A09357 Assistance with Respiratory Ventilation, Less than 24 Consecutive Hours, Continuous Positive Airway Pressure (ICD-10-PCS; 2018-01-16)
PROC: 5A09357 Assistance with Respiratory Ventilation, Less than 24 Consecutive Hours, Continuous Positive Airway Pressure (ICD-10-PCS; 2018-01-17)
DX: J96.22 Acute and chronic respiratory failure with hypercapnia (principal); J44.1 Chronic obstructive pulmonary disease with (acute) exacerbation; E87.2 Acidosis; I10 Essential (primary) hypertension; K21.9 Gastro-esophageal reflux disease without esophagitis; Z79.891 Long term (current) use of opiate analgesic; Z88.8 Allergy status to other drugs, medicaments and biological substances; Z91.010 Allergy to peanuts; Z79.51 Long term (current) use of inhaled steroids; Z79.899 Other long term (current) drug therapy
CPT/HCPCS: 36415; 36600; 71046; 80048; 82803; 84484; 85025; 85027; 93005; 93010; 94640; 94660; 94760; 96361; 96374; 99285; J1956; J2060; J2920; J2930; J3475; J7030

== ENCOUNTER 2018-07-15 19:16 | Inpatient (IN) | payer MEDICARE ==
[2018-07-15] MEDS ORDERED: MAGNESIUM SULFATE 2GM/50ML 2 GM/50 ML BAG IV ONE (19:37)
[2018-07-15] MEDS ORDERED: SOLU-Medrol ONE (19:37)
--- NOTE | 2018-07-15 19:53 | Emergency Department Report ---
ED Shortness of Breath HPI - General Chief Complaint: Dyspnea/Respdistress Stated Complaint: ANTHONY Time Seen by Provider: 07/15/18 19:35 Source: patient, EMS Mode of arrival: Stretcher Limitations: Physical Limitation - History of Present Illness Initial Comments: Patient is 63-year-old female brought in by EMS for difficulty breathing and shortness of breath. Patient is on home O2. Patient has history of COPD. Patient states she's had multiple treatments of albuterol today. States that she received Solu-Medrol and multiple breathing treatments by EMS and magnesium sulfate run in route. Patient answering all questions properly. She denies chest pain. Patient denies fever and chills. Patient denies abdominal pain. MD Complaint: shortness of breath, cough -: Sudden Severity: severe Consistency: constant Improves With: oxygen, rest, bronchodilators, upright position Worsens With: lying flat, exertion, coughing Known History Of: COPD Context: recent URI Associated Symptoms: cough, sputum production, orhopnia Treatments Prior to Arrival: oxygen, bronchodilator, other - Related Data Home Oxygen Therapy: Yes Home Oxygen Amount: 2 Liters Home Medications Medication Instructions Recorded Confirmed Last Taken Albuterol Sulfate [Ventolin HFA] 2 puff IH Q4H PRN 02/17/18 02/17/18 Unknown Prednisone 10 mg PO DAILY 02/17/18 02/17/18 2 Days Ago ~02/15/18 10mg Previous Rx's Medication Instructions Recorded Last Taken Type Carvedilol [Coreg] 6.25 mg PO BID #60 tablet 11/30/17 Unknown Rx Lisinopril [Zestril TAB] 5 mg PO QDAY #30 tablet 11/30/17 Unknown Rx Arformoterol Nebu [Brovana Nebu] 15 mcg IH Q12HRT #30 ml 01/17/18 Unknown Rx Budesonide [Pulmicort Respules] 0.5 mg IH Q12HRT #30 nebu 01/17/18 Unknown Rx Pantoprazole [Protonix TAB] 40 mg PO QDAY #30 tablet 01/17/18 Unknown Rx Montelukast [Singulair] 10 mg PO QHS #30 tablet 02/20/18 Unknown Rx levoFLOXacin [Levaquin TAB] 750 mg PO QDAY #5 tablet 02/20/18 Unknown Rx methylPREDNISolone [Medrol] 4 mg PO DAILY #21 tab.ds.pk 02/20/18 Unknown Rx Allergies Allergy/AdvReac Type Severity Reaction Status Date / Time peanut Allergy Angioedema Verified 07/23/16 00:17 ipratropium bromide AdvReac Shortness Verified 09/11/13 07:39 [From Atrovent] of Breath Shellfish Allergy Unknown Uncoded 01/15/18 14:25 ED Review of Systems ROS: Stated complaint: ANTHONY Other details as noted in HPI Constitutional: denies: chills, fever Eyes: denies: eye pain, eye discharge, vision change ENT: denies: ear pain, throat pain Respiratory: cough, orthopnea, shortness of breath, SOB with exertion, SOB at rest, wheezing Cardiovascular: denies: chest pain, palpitations Endocrine: no symptoms reported Gastrointestinal: denies: abdominal pain, nausea, diarrhea Genitourinary: denies: urgency, dysuria, discharge Musculoskeletal: denies: back pain, joint swelling, arthralgia Skin: denies: rash, lesions Neurological: denies: headache, weakness, paresthesias Psychiatric: denies: anxiety, depression Hematological/Lymphatic: denies: easy bleeding, easy bruising ED Past Medical Hx - Past Medical History Previous Medical History?: Yes Hx Hypertension: Yes Hx CVA: No Hx Heart Attack/AMI: No Hx Congestive Heart Failure: No Hx Diabetes: No Hx Deep Vein Thrombosis: No Hx Pulmonary Embolism: No Hx GERD: No Hx Liver Disease: No Hx Renal Disease: No Hx Sickle Cell Disease: No Hx Arthritis: No Hx Headaches / Migraines: No Hx Seizures: No Hx Kidney Stones: No Hx Psychiatric Treatment: No Hx Asthma: Yes Hx COPD: Yes Hx Tuberculosis: No Hx Dementia: No Hx HIV: No Additional medical history: hx intubation - Surgical History Past Surgical History?: No Hx Coronary Stent: No Hx Open Heart Surgery: No Hx Pacemaker: No Hx Internal Defibrillator: No Hx Cholecystectomy: No Hx Appendectomy: No Hx Breast Surgery: No - Family History Family history: no significant - Social History Smoking Status: Former Smoker Substance Use Type: None - Medications Home Medications: Home Medications Medication Instructions Recorded Confirmed Last Taken Type Carvedilol [Coreg] 6.25 mg PO BID #60 tablet 11/30/17 02/17/18 Unknown Rx Lisinopril [Zestril TAB] 5 mg PO QDAY #30 tablet 11/30/17 02/17/18 Unknown Rx Arformoterol Nebu [Brovana Nebu] 15 mcg IH Q12HRT #30 ml 01/17/18 02/17/18 Unknown Rx Budesonide [Pulmicort Respules] 0.5 mg IH Q12HRT #30 nebu 01/17/18 02/17/18 Unknown Rx Pantoprazole [Protonix TAB] 40 mg PO QDAY #30 tablet 01/17/18 02/17/18 Unknown Rx Albuterol Sulfate [Ventolin HFA] 2 puff IH Q4H PRN 02/17/18 02/17/18 Unknown History Prednisone 10 mg PO DAILY 02/17/18 02/17/18 2 Days Ago History ~02/15/18 10mg Montelukast [Singulair] 10 mg PO QHS #30 tablet 02/20/18 Unknown Rx levoFLOXacin [Levaquin TAB] 750 mg PO QDAY #5 tablet 02/20/18 Unknown Rx methylPREDNISolone [Medrol] 4 mg PO DAILY #21 tab.ds.pk 02/20/18 Unknown Rx ED Physical Exam - General Limitations: Physical Limitation General appearance: alert, in distress - Head Head exam: Present: atraumatic, normocephalic - Eye Eye exam: Present: normal appearance, PERRL Pupils: Present: normal accommodation - ENT ENT exam: Present: mucous membranes dry - Neck Neck exam: Present: normal inspection - Respiratory Respiratory exam: Present: respiratory distress, wheezes, rhonchi, accessory muscle use, decreased breath sounds - Cardiovascular Cardiovascular Exam: Present: regular rate, normal rhythm, tachycardia. Absent: systolic murmur, diastolic murmur, rubs, gallop - GI/Abdominal GI/Abdominal exam: Present: soft, normal bowel sounds - Extremities Exam Extremities exam: Present: normal inspection - Back Exam Back exam: Present: normal inspection - Neurological Exam Neurological exam: Present: alert, oriented X3 - Skin Skin exam: Present: warm, dry, intact, normal color. Absent: rash ED Course Vital Signs 07/15/18 07/15/18 07/15/18 19:22 19:23 19:26 Temperature 99.2 F Pulse Rate 128 H 124 H 125 H Respiratory 21 17 24 Rate Blood Pressure 206/99 O2 Sat by Pulse 98 98 98 Oximetry 07/15/18 07/15/18 07/15/18 19:30 19:36 19:40 Temperature Pulse Rate 128 H 129 H 126 H Respiratory 29 H 29 H 24 Rate Blood Pressure 210/110 210/110 210/110 O2 Sat by Pulse 98 88 86 Oximetry 07/15/18 07/15/18 07/15/18 19:48 19:50 19:56 Temperature Pulse Rate 124 H 114 H 117 H Respiratory 22 17 34 H Rate Blood Pressure 184/86 O2 Sat by Pulse 83 L 83 L 90 Oximetry 07/15/18 07/15/18 07/15/18 20:00 20:06 20:10 Temperature Pulse Rate 99 H 104 H Respiratory 24 24 15 Rate Blood Pressure 166/88 166/88 166/88 O2 Sat by Pulse 89 86 98 Oximetry 07/15/18 07/15/18 07/15/18 20:15 20:16 20:20 Temperature Pulse Rate 99 H 104 H 92 H Respiratory 18 14 Rate Blood Pressure 115/67 153/90 153/90 O2 Sat by Pulse 100 100 100 Oximetry 07/15/18 07/15/18 07/15/18 20:26 20:30 20:35 Temperature Pulse Rate 89 101 H 107 H Respiratory 21 18 22 Rate Blood Pressure 101/62 101/60 77/50 O2 Sat by Pulse 100 100 99 Oximetry 07/15/18 07/15/18 07/15/18 20:40 20:45 20:50 Temperature Pulse Rate 103 H 98 H 99 H Respiratory 21 20 13 Rate Blood Pressure 74/49 85/52 108/70 O2 Sat by Pulse 100 100 100 Oximetry 07/15/18 07/15/18 07/15/18 20:55 20:59 21:00 Temperature Pulse Rate 96 H 93 H Respiratory 11 L 19 Rate Blood Pressure 115/67 110/74 O2 Sat by Pulse 100 100 100 Oximetry 07/15/18 07/15/18 07/15/18 21:05 21:10 21:15 Temperature Pulse Rate 97 H 95 H 96 H Respiratory 16 19 20 Rate Blood Pressure 127/92 103/69 101/66 O2 Sat by Pulse 99 100 100 Oximetry 07/15/18 07/15/18 07/15/18 21:20 21:25 21:30 Temperature Pulse Rate 96 H 100 H 93 H Respiratory 18 6 L 9 L Rate Blood Pressure 99/67 111/76 117/73 O2 Sat by Pulse 100 100 Oximetry 07/15/18 07/15/18 07/15/18 21:35 21:40 21:45 Temperature Pulse Rate 95 H 91 H 92 H Respiratory 19 20 22 Rate Blood Pressure 92/59 99/65 86/44 O2 Sat by Pulse 97 100 99 Oximetry 07/15/18 07/15/18 07/15/18 21:50 21:55 22:00 Temperature Pulse Rate 93 H 94 H 90 Respiratory 22 21 21 Rate Blood Pressure 73/45 77/48 80/49 O2 Sat by Pulse 99 99 25 L Oximetry 07/15/18 07/15/18 07/15/18 22:05 22:10 22:15 Temperature Pulse Rate 88 81 85 Respiratory 0 L 12 8 L Rate Blood Pressure 92/65 91/62 102/69 O2 Sat by Pulse 99 98 98 Oximetry 07/15/18 07/15/18 07/15/18 22:20 22:25 22:30 Temperature Pulse Rate 85 87 81 Respiratory 0 L 14 16 Rate Blood Pressure 97/64 102/69 106/61 O2 Sat by Pulse 97 97 Oximetry 07/15/18 07/15/18 07/15/18 22:35 22:40 22:45 Temperature Pulse Rate 87 90 89 Respiratory 17 11 L 18 Rate Blood Pressure 94/71 110/65 113/77 O2 Sat by Pulse 100 100 90 Oximetry 07/15/18 07/15/18 07/15/18 22:50 22:55 23:00 Temperature Pulse Rate 88 91 H 89 Respiratory 18 17 16 Rate Blood Pressure 113/71 98/68 104/63 O2 Sat by Pulse 88 92 93 Oximetry 07/15/18 07/15/18 07/15/18 23:05 23:10 23:15 Temperature Pulse Rate 89 89 88 Respiratory 21 21 20 Rate Blood Pressure 90/59 97/62 91/63 O2 Sat by Pulse Oximetry - Reevaluation(s) Reevaluation #1: Initial evaluation done. Patient is having retractions throughout. Patient is visibly short of breath. Patient having difficulties talking in complete sentences due to shortness breath. Patient has wheezing throughout santoro. Pat ient will be started on a nebulizer treatment as well as BiPAP. 07/15/18 19:35 Patient continued to have retractions. Patient still lethargic. Patient respiratory distress not improving with BiPAP. Patient extremely acidotic. Patient will be intubated. See intubation note. Possible sepsis. 07/15/18 20:01 Patient better. Patient intubated on vent. Chest x-ray shows ET tube in good placement as well as NG tube in good placement as well as a small right early pneumonia. 07/15/18 20:32 Patient on Wednesday. Patient resting comfortably on vent. 07/15/18 21:00 ABG has improved. Discussed case and care with family 07/15/18 21:25 Patient is ready for admission. Patient admitted to the hospitalist service. 07/15/18 22:07 - Consultations Consultation #1: Hospitalist consult for admission. Hospitalist to admit patient assume care of patient. Patient to be admitted to the ICU. 07/15/18 22:09 - Intubation Time Out Performed: Yes Sedative: Etomidate Paralytic: Succinylcholine Laryngoscope: fiberoptic video scope Size: 3 Assist Device Used: fiberoptic device ET Tube Size: 7.5 Tube Secured Depth (cm): 24 Tube Secured Location: lips Tube Placement Confirmation: visualized tube passing t, equal breath sounds bilat, no breath sounds over epi, confirmation by capnometr Patient Tolerated Procedure: well Intubation Complications: none ED Medical Decision Making - Lab Data Result diagrams: 07/15/18 19:55 07/15/18 19:55 - EKG Data -: EKG Interpreted by Me EKG shows normal: sinus rhythm, axis, intervals, QRS complexes, ST-T waves Rate: tachycardia - Radiology Data Radiology results: report reviewed, image reviewed interpreted by me: Chest x-ray shows ET tube in place and gastric tube into place and small right effusion FINAL REPORT PROCEDURE: XR CHEST 1V AP TECHNIQUE: Chest radiograph anteroposterior view. CPT 00782 HISTORY: Shortness of breath, INTUBATION, OG TUBE COMPARISON: 11/26/2017 FINDINGS: Heart: Normal. Mediastinum/Vessels: Normal. Lungs/Pleural space: Lungs are expanded. There are infiltrates the right lung base. There is a tiny right pleural effusion. There is no pneumothorax. Bony thorax: No acute osseous abnormality. Life support devices: NG tube is in the stomach. ET tube is in the mid trachea.. IMPRESSION: The heart size is normal. Lungs are expanded. There are infiltrates the right lung base. There is a tiny right pleural effusion. There is no pneumothorax. NG tube is in the stomach. ET tube is in the mid trachea.. - Medical Decision Making Steve 63-year-old female that S emergency room with shortness of breath and auditory distress. Patient was given by EMS oxygen, breathing treatments and bag and didn't improve. Patient was placed on BiPAP upon arrival to the ER and patient still is not improve. Patient was then intubated after ABG showed severe respiratory acidosis. Patient's ABG improved. Patient found to have lactic acidosis as well. Patient found to be septic with a right sided pn eumonia. Patient given antibiotics. Patient given saline boluses. Patient to be admitted to the hospitalist service for further evaluation treatment. - Differential Diagnosis COPD exacerbation. Pneumonia. SOB. Respiratory failure. Hypoxia. Critical Care Time: Yes Critical care attestation.: If time is entered above; I have spent that time in minutes in the direct care of this critically ill patient, excluding procedure time. Critical Care Time: 80 minutes ED Disposition Clinical Impression: Respiratory acidosis, Lactic acid acidosis, Respiratory distress, SOB (shortness of breath), Hypoxia, COPD exacerbation Respiratory failure Qualifiers: Chronicity: acute Respiratory failure complication: hypoxia and hypercapnia Qualified Code(s): J96.01 - Acute respiratory failure with hypoxia Acute respiratory failure Qualifiers: Respiratory failure complication: hypoxia and hypercapnia Qualified Code(s): J96.01 - Acute respiratory failure with hypoxia Pneumonia Qualifiers: Pneumonia type: due to unspecified organism Laterality: right Lung location: unspecified part of lung Qualified Code(s): J18.9 - Pneumonia, unspecified organism Sepsis Qualifiers: Sepsis type: sepsis due to unspecified organism Qualified Code(s): A41.9 - Sepsis, unspecified organism Disposition: OP ADMIT IP TO THIS HOSP Is pt being admited?: Yes Does the pt Need Aspirin: No Condition: Critical Time of Disposition: 22:03
[2018-07-15] MEDS ORDERED: PROVENTIL IH ONE (19:54)
[2018-07-15] MEDS ORDERED: ATROVENT IH ONE (19:54)
[2018-07-15] MEDS ORDERED: QUELICIN ONE (20:05)
[2018-07-15] MEDS ORDERED: NACL 0.9% 1000 ML 1,000 ML ONE ×2 (20:05→20:43)
[2018-07-15] MEDS ORDERED: AMIDATE IV ONE ×2 (20:05→20:06)
[2018-07-15] MEDS ORDERED: DIPRIVAN 10 MG/ML 1,000 MG/100 ML BOTTLE IV ONE (20:05)
[2018-07-15] MEDS ORDERED: QUELICIN IV ONE (20:06)
[2018-07-15] MEDS: DIPRIVAN 10 MG/ML 1,000 MG/100 ML BOTTLE IV SCH (20:08)
[2018-07-15 20:19] LABS: Hematocrit 44.9 % (30.3-42.9); Hemoglobin 14.6 gm/dl (10.1-14.3); Mean Corpuscular HGB Conc 33 % (30-34); Mean Corpuscular Volume 106 fl (79-97); Platelet Count 371 K/mm3 (140-440); Red Blood Count 4.26 M/mm3 (3.65-5.03)
[2018-07-15] MEDS ORDERED: VERSED IV NR (20:30)
[2018-07-15] MEDS ORDERED: VERSED IV ONE (20:31)
[2018-07-15] MEDS ORDERED: MAXIPIME/NS 1 GM/100 ML 1 GM/100 ML BAG IV ONE (20:34)
[2018-07-15 20:50] LABS: BUN/Creatinine Ratio 20; Blood Urea Nitrogen 12 mg/dL (7-17); Calcium 9.1 mg/dL (8.4-10.2)
[2018-07-15] MEDS ORDERED: fentaNYL DRIP Premix 2,000 MCG/100 ML BAG IV ONE (20:50)
[2018-07-15] MEDS: fentaNYL DRIP Premix 2,000 MCG/100 ML BAG IV SCH (20:50)
[2018-07-15 20:51] LABS: Hemolysis Index 2
[2018-07-15 21:01] LABS: Basophils % (Manual) 0 % (0.0-1.8); Eosinophils % (Manual) 0 % (0.0-4.3); Total Cells Counted 100
[2018-07-15 21:02] LABS: Anisocytosis 1+; Poikilocytosis Few; Schistocytes Rare
--- NOTE | 2018-07-15 21:14 | XRay Report ---
FINAL REPORT PROCEDURE: XR CHEST 1V AP TECHNIQUE: Chest radiograph anteroposterior view. CPT 77114 HISTORY: Shortness of breath, INTUBATION, OG TUBE COMPARISON: 11/26/2017 FINDINGS: Heart: Normal. Mediastinum/Vessels: Normal. Lungs/Pleural space: Lungs are expanded. There are infiltrates the right lung base. There is a tiny r ight pleural effusion. There is no pneumothorax. Bony thorax: No acute osseous abnormality. Life support devices: NG tube is in the stomach. ET tube is in the mid trachea.. IMPRESSION: The heart size is normal. Lungs are expanded. There are infiltrates the right lung base. There is a tiny right pleural effusion . There is no pneumothorax. NG tube is in the stomach. ET tube is in the mid trachea..
[2018-07-15] MEDS ORDERED: NACL 0.9% 1000 ML 1,000 ML IV ONE ×3 (21:18→21:59)
[2018-07-15] MEDS ORDERED: TYLENOL PR PRN (22:47)
[2018-07-15] MEDS ORDERED: ZOFRAN IV PRN (22:48)
[2018-07-16] MEDS ORDERED: MAXIPIME/NS 1 GM/100 ML 1 GM/100 ML BAG IV SCH
[2018-07-16] MEDS: NACL 0.9% 1000 ML 1,000 ML IV SCH ×4 (00:41→15:24)
[2018-07-16] MEDS ORDERED: NACL 0.9% 500 ML 500 ML IV ONE (02:24)
[2018-07-16] MEDS ORDERED: NACL 0.9% 1000 ML 1,000 ML IV ONE ×2 (03:12→14:00)
[2018-07-16] MEDS ORDERED: VANCOMYCIN/NS 1 GM/250 ML 1 GM/250 ML BAG IV ONE (03:27)
--- NOTE | 2018-07-16 03:33 | Procedure Note ---
Date of procedure: 07/16/18 Pre-op diagnosis: attention, sepsis Post-op diagnosis: same Procedure: Central line placement: Consent was emergent. Patient's hypotensive and required a central line. Hospitalist asked to follow him. Central line was placed in the ICU. Sterile technique used. Patient was draped and cleaned in a sterile fashion. Down mask and gloves were used. Salinger technique. No complications noted minimal blood loss. Ultrasound was used. Line was placed with 1 stick triple lumen placed. Patient tolerated well. clear to use line.. Hospitalist made aware of the procedure. Anesthesia: local Estimated blood loss: minimal Pathology: none Condition: critical Disposition: no change
[2018-07-16] MEDS ORDERED: LEVOPHED DRIP 4 MG/NS 250 ML 4 MG/250 ML BAG IV SCH (04:00)
[2018-07-16] MEDS ORDERED: VANCOMYCIN PHARMACY TO DOSE IV SCH (04:00)
--- NOTE | 2018-07-16 08:01 | History and Physical Report ---
CHIEF COMPLAINT: Shortness of breath. HISTORY OF PRESENTING ILLNESS: The patient is a 63-year-old female who was having shortness of breath at home and states she had several breathing treatments, but the symptoms persisted. The patient is on home O2 and denied history of chest pain. Also, the patient denied history of fever and chills and called EMS. There was also history of cough and wheezing and EMS arrived and evaluated the patient and gave the patient IV Solu-Medrol, magnesium sulfate and multiple breathing treatments and transported the patient to the Emergency Room. PAST MEDICAL HISTORY: Pertinent for hypertension. Also, the patient has past history of asthma, COPD requiring intubation in the past. PAST SURGICAL HISTORY: Unremarkable. FAMILY HISTORY: Family history is noncontributory. SOCIAL HISTORY: The patient is a former cigarette smoker. Does not smoke currently, does not drink alcohol and does not use illicit drugs. MEDICATIONS: The patient is on Coreg or carvedilol 6.25 mg by mouth daily, lisinopril 5 mg by mouth daily, formoterol nebulizer 15mcg inhalation q. 12, budesonide 0.5 mg inhalation q. 12, pantoprazole 40 mg by mouth daily, albuterol sulfate 2 puff inhalation q. 4 p.r.n., prednisone 10 mg by mouth daily, Singulair 10 mg by mouth at bedtime, levofloxacin or Levaquin 750 mg by mouth daily, methylprednisolone or Medrol 4 mg by mouth daily. ALLERGIES: THE PATIENT IS ALLERGIC TO PEANUTS, IPRATROPIUM BROMIDE AND SHELLFISH. REVIEW OF SYSTEMS: CONSTITUTIONAL: There is no fever, no chills, no diaphoresis. HEENT: There is no headache or sore throat. CARDIOVASCULAR SYSTEM: There is no chest pain or orthopnea. RESPIRATORY SYSTEM: Shortness of breath is present, wheezing present. GASTROINTESTINAL SYSTEM: There is no nausea, no vomiting, no abdominal pain, diarrhea or constipation. NEUROLOGICAL SYSTEM: There is no numbness, no dizziness, no altered mental status. MUSCULOSKELETAL SYSTEM: There is no joint pain or swelling. DERMATOLOGICAL SYSTEM: There is no skin rash or itching. GENITOURINARY SYSTEM: There is no dysuria, hematuria, or flank pain. Rest of system review is normal. PHYSICAL EXAMINATION: GENERAL: At the time of exam, the patient was found to be intubated, sedated, mechanically ventilated and not in acute distress. VITAL SIGNS: The patient had at the initial time of presentation show temperature of 99.2 degrees Fahrenheit, pulse of 124, respiration 17, blood pressure 206/99, O2 sat of 98% on oxygen. The patient's blood pressure after about 2 hours went down to 110/74. HEENT: Showed pupils to be equal, round, reactive to light and accommodating. NECK: Neck is supple with no JVD or carotid bruit. CARDIOVASCULAR SYSTEM: Showed normal first and second heart sounds with no gallops or murmurs. RESPIRATORY SYSTEM: Showed good air entry on both sides of the lungs through endotracheal tube and mechanical ventilation. There are some crackles on the right lung base. GASTROINTESTINAL SYSTEM: Show abdomen to be full, soft, nontender with no organomegaly or rigidity. NEUROLOGICAL: Neuro exam shows no focal deficit. MUSCULOSKELETAL SYSTEM: Show no joint swelling or tenderness. DERMATOLOGICAL SYSTEM: Showing no skin rash. GENITOURINARY SYSTEM: Show no costovertebral angle tenderness. PERTINENT LABORATORY DATA AND IMAGING STUDIES: The patient had chest x-ray done and chest x-ray shows heart with normal size and the lungs that show expanded lungs with infiltrates in the right lung base and also there is finding of tiny pleural effusion with no pneumothorax seen. The patient's NG tube was found in the stomach and the endotracheal tube is in the mid trachea area. Lab results; the patient has CBC done with elevated white count , high hemoglobin of 14.6 and high hematocrit of 44.9 with elevated MCV of 106. CBC differential show high segmented neutrophil of 96% and the patient's arterial blood gas show low pH of 7.30, high pCO2 of 64.7, high pO2 and O2 sat of 100% and this was done on FiO2 of 50. Chemistry: The patient's chemistry shows normal sodium, normal potassium and normal chloride with elevated CO2 of 36 and elevated lactic acid level 3.6. DIAGNOSES: 1. Right lung pneumonia. 2. Sepsis. 3. Respiratory failure needing mechanical ventilation. PLAN OF ACTION: 1. The patient will be admitted to ICU as inpatient. 2. The patient will have critical care consult with Dr. Puri for ICU admission and mechanical ventilation management. 3. The patient will have respiratory therapy consult to manage the ventilator. 4. The patient will be on IV cefepime or Maxipime 1 gram q. 6 hours and also the patient will be on IV Zithromax 500 mg daily. 5. The patient will be on Tylenol 650 mg rectally every 4 hours for fever and headache and will continue IV propofol and IV fentanyl for sedation while on the ventilator. 6. The patient will be on IV normal saline at 150 mL an hour. JOB# [id number] OCN/NTS MTDD
[2018-07-16] MEDS: DIPRIVAN 10 MG/ML 1,000 MG/100 ML BOTTLE IV SCH (09:29)
[2018-07-16] MEDS: HEPARIN SUB-Q SCH ×2 (09:30→21:49)
[2018-07-16] MEDS: MAXIPIME/NS 2 GM/100 ML 2 GM/100 ML BAG IV SCH ×2 (09:54→23:10)
[2018-07-16] MEDS ORDERED: ZITHROMAX 500 MG in NACL 0.9% 250ML 250 ML IV SCH (10:00)
--- NOTE | 2018-07-16 12:34 | Consultation ---
History of Present Illness Consult date: 07/16/18 Requesting physician: ORLANDO SALINAS Reason for consult: COPD, other (Acute Hypoxemic Resp Failure) History of present illness: PULMONARY/CCM CONSULT NOTE (Full dictation # [id number]) Please see dictated notes for full details Medications and Allergies Allergies Allergy/AdvReac Type Severity Reaction Status Date / Time peanut Allergy Angioedema Verified 07/23/16 00:17 ipratropium bromide AdvReac Shortness Verified 09/11/13 07:39 [From Atrovent] of Breath Shellfish Allergy Unknown Uncoded 01/15/18 14:25 Home Medications Medication Instructions Recorded Confirmed Last Taken Type Carvedilol [Coreg] 6.25 mg PO BID #60 tablet 11/30/17 02/17/18 Unknown Rx Lisinopril [Zestril TAB] 5 mg PO QDAY #30 tablet 11/30/17 02/17/18 Unknown Rx Arformoterol Nebu [Brovana Nebu] 15 mcg IH Q12HRT #30 ml 01/17/18 02/17/18 Unknown Rx Budesonide [Pulmicort Respules] 0.5 mg IH Q12HRT #30 nebu 01/17/18 02/17/18 Unknown Rx Pantoprazole [Protonix TAB] 40 mg PO QDAY #30 tablet 01/17/18 02/17/18 Unknown Rx Albuterol Sulfate [Ventolin HFA] 2 puff IH Q4H PRN 02/17/18 02/17/18 Unknown History Prednisone 10 mg PO DAILY 02/17/18 02/17/18 2 Days Ago History ~02/15/18 10mg Montelukast [Singulair] 10 mg PO QHS #30 tablet 02/20/18 Unknown Rx levoFLOXacin [Levaquin TAB] 750 mg PO QDAY #5 tablet 02/20/18 Unknown Rx methylPREDNISolone [Medrol] 4 mg PO DAILY #21 tab.ds.pk 02/20/18 Unknown Rx Active Meds: Active Medications Acetaminophen (Tylenol) 650 mg MN Q4H PRN PRN Reason: Fever >101 Fentanyl (Sublimaze) 50 mcg IV Q10MIN PRN PRN Reason: ANALGESIA Heparin Sodium (Porcine) (Heparin) 5,000 unit SUB-Q Q12HR SEBASTIAN Last Admin: 07/16/18 09:30 Dose: 5,000 unit Documented by: Fentanyl Citrate (Fentanyl Drip Premix) 2,000 mcg in 100 mls @ 2.722 mls/hr IV TITR SEBASTIAN; Protocol Last Titration: 07/16/18 00:16 Dose: 0 mcg/kg/hr, 0 mls/hr Documented by: Propofol (Diprivan 10 Mg/Ml) 1,000 mg in 100 mls @ 1.633 mls/hr IV TITR SEBASTIAN; Protocol Last Admin: 07/16/18 09:29 Dose: 7 mcg/kg/min, 2.286 mls/hr Documented by: Sodium Chloride (Nacl 0.9% 1000 Ml) 1,000 mls @ 150 mls/hr IV DIRECT SEBASTIAN Last Admin: 07/16/18 06:57 Dose: 150 mls/hr Documented by: Cefepime HCl (Maxipime/Ns 2 Gm/100 Ml) 2 gm in 100 mls @ 200 mls/hr IV Q12HR SEBASTIAN; Protocol Last Admin: 07/16/18 09:54 Dose: 200 mls/hr Documented by: Norepinephrine (Levophed Drip 4 Mg/Ns 250 Ml) 4 mg in 250 mls @ 7.5 mls/hr IV TITR SEBASTIAN; Protocol Vancomycin HCl (Vancomycin/Ns 1 Gm/250 Ml) 1 gm in 250 mls @ 166.667 mls/hr IV Q12H SEBASTIAN Midazolam HCl (Versed) 5 mg IV ONCE NR Stop: 07/16/18 20:29 Ondansetron HCl (Zofran) 4 mg IV Q8H PRN PRN Reason: Nausea And Vomiting Physical Examination Vital signs: Vital Signs Pulse Resp Pulse Ox 128 H 21 98 07/15/18 19:22 07/15/18 19:22 07/15/18 19:22 Results - Laboratory Findings CBC and BMP: 07/15/18 19:55 07/15/18 19:55 ABG POC ABG pH 7.328 (7.35-7.45) L 07/16/18 07:50 POC ABG pCO2 50.0 (35-45) H 07/16/18 07:50 POC ABG pO2 89 (80-105) 07/16/18 07:50 POC ABG HCO3 26.2 07/16/18 07:50 POC ABG Total CO2 28 07/16/18 07:50 POC ABG O2 Sat 96 07/16/18 07:50 Abnormal lab findings: Abnormal Labs 07/15/18 07/15/18 07/15/18 19:55 19:55 20:04 WBC 14.3 H Hgb 14.6 H Hct 44.9 H MCV 106 H MCH 34 H Seg Neuts % (Manual) 96.0 H Lymphocytes % (Manual) 3.0 L Seg Neutrophils # Man 13.7 H Lymphocytes # (Manual) 0.4 L POC ABG pH 7.105 L POC ABG pCO2 120.2 H POC ABG pO2 71 L Carbon Dioxide 36 H Creatinine 0.6 L Glucose 172 H Lactic Acid 07/15/18 07/15/18 07/15/18 20:46 21:18 22:05 WBC Hgb Hct MCV MCH Seg Neuts % (Manual) Lymphocytes % (Manual) Seg Neutrophils # Man Lymphocytes # (Manual) POC ABG pH 7.305 L POC ABG pCO2 64.5 H POC ABG pO2 220 H Carbon Dioxide Creatinine Glucose Lactic Acid 2.40 H* 3.40 H* 07/15/18 07/16/18 23:27 07:50 WBC Hgb Hct MCV MCH Seg Neuts % (Manual) Lymphocytes % (Manual) Seg Neutrophils # Man Lymphocytes # (Manual) POC ABG pH 7.328 L POC ABG pCO2 50.0 H POC ABG pO2 Carbon Dioxide Creatinine Glucose Lactic Acid 3.60 H*
--- NOTE | 2018-07-16 12:38 | Progress Note ---
Assessment and Plan Assessment and plan: Patient is a 63-year-old female with known history of hypertension, asthma, COPD, previously intubated in the past admitted with shortness of breath and presumed sepsis although etiology not known at this time. Acute respiratory failure with hypercarpenia SIRS Diabetes mellitus Lactic acidosis COPD with Exacerbation GERD Moderate to Severe Protein calorie Malnutrition Plan: Continue supportive care with ICU care Continue Abx For Empiric coverage Adjust insulin Patient recently on Steriods which could explain the leukocytosis. Pulmonary Management per Spray Painter Give a bolus of fluids DVT/GI prophy The high probability of a clinically significant, sudden or life threatening deterioration of the [pulmonary] system(s) required my full and direct attention, intervention and personal management. The aggregate critical care time was [35] minutes. This time is in addition to time spent performing reported procedures but includes the following: [x] Data Review and interpretation [x] Patient assessment and monitoring of vital signs [x] Documentation [x] Medication orders and management History Interval history: Patient seen and examined, remains intubated, and sedated. No new complaints from Nursing staff. Hospitalist Physical - Physical exam Narrative exam: VITAL SIGNS: Reviewed. GENERAL: The patient appeared well nourished and normally developed. Currently intubated on mechanical ventilation Vital signs as documented. HEAD: No signs of head trauma. EYES: Pupils are equal. EARS: Hearing grossly intact. MOUTH: ET tubes in place NECK: No adenopathy, no JVD. CHEST: Chest with clear breath sounds bilaterally. No wheezes, rales, or rhonchi. CARDIAC: Regular rate and rhythm. S1 and S2, without murmurs, gallops, or rubs. VASCULAR: No Edema. Peripheral pulses normal and equal in all extremities. ABDOMEN: Soft, without detectable tenderness. No sign of distention. No rebound or guarding, and no masses palpated. Bowel Sounds normal. MUSCULOSKELETAL: No edema noted NEUROLOGIC EXAM: Sedated PSYCHIATRIC: Sedated SKIN: No rash or lesions. - Constitutional Vitals: Temp Pulse Resp BP Pulse Ox 100.9 F H 83 22 129/71 97 07/16/18 11:28 07/16/18 11:57 07/16/18 10:45 07/16/18 11:57 07/16/18 11:57 Results - Labs CBC & Chem 7: 07/15/18 19:55 07/15/18 19:55 Labs: Laboratory Last Values WBC 14.3 K/mm3 (4.5-11.0) H 07/15/18 19:55 RBC 4.26 M/mm3 (3.65-5.03) 07/15/18 19:55 Hgb 14.6 gm/dl (10.1-14.3) H 07/15/18 19:55 Hct 44.9 % (30.3-42.9) H 07/15/18 19:55 MCV 106 fl (79-97) H 07/15/18 19:55 MCH 34 pg (28-32) H 07/15/18 19:55 MCHC 33 % (30-34) 07/15/18 19:55 RDW 14.0 % (13.2-15.2) 07/15/18 19:55 Plt Count 371 K/mm3 (140-440) 07/15/18 19:55 Add Manual Diff Complete 07/15/18 19:55 Total Counted 100 07/15/18 19:55 Seg Neutrophils % Coining Press Operator 07/15/18 19:55 Seg Neuts % (Manual) 96.0 % (40.0-70.0) H 07/15/18 19:55 Band Neutrophils % 0 % 07/15/18 19:55 Lymphocytes % (Manual) 3.0 % (13.4-35.0) L 07/15/18 19:55 Reactive Lymphs % (Man) 0 % 07/15/18 19:55 Monocytes % (Manual) 1.0 % (0.0-7.3) 07/15/18 19:55 Eosinophils % (Manual) 0 % (0.0-4.3) 07/15/18 19:55 Basophils % (Manual) 0 % (0.0-1.8) 07/15/18 19:55 Metamyelocytes % 0 % 07/15/18 19:55 Myelocytes % 0 % 07/15/18 19:55 Promyelocytes % 0 % 07/15/18 19:55 Blast Cells % 0 % 07/15/18 19:55 Nucleated RBC % Not Reportable 07/15/18 19:55 Seg Neutrophils # Man 13.7 K/mm3 (1.8-7.7) H 07/15/18 19:55 Band Neutrophils # 0.0 K/mm3 07/15/18 19:55 Lymphocytes # (Manual) 0.4 K/mm3 (1.2-5.4) L 07/15/18 19:55 Abs React Lymphs (Man) 0.0 K/mm3 07/15/18 19:55 Monocytes # (Manual) 0.1 K/mm3 (0.0-0.8) 07/15/18 19:55 Eosinophils # (Manual) 0.0 K/mm3 (0.0-0.4) 07/15/18 19:55 Basophils # (Manual) 0.0 K/mm3 (0.0-0.1) 07/15/18 19:55 Metamyelocytes # 0.0 K/mm3 07/15/18 19:55 Myelocytes # 0.0 K/mm3 07/15/18 19:55 Promyelocytes # 0.0 K/mm3 07/15/18 19:55 Blast Cells # 0.0 K/mm3 07/15/18 19:55 WBC Morphology Not Reportable 07/15/18 19:55 Hypersegmented Neuts Not Reportable 07/15/18 19:55 Hyposegmented Neuts Not Reportable 07/15/18 19:55 Hypogranular Neuts Not Reportable 07/15/18 19:55 Smudge Cells Not Reportable 07/15/18 19:55 Toxic Granulation Not Reportable 07/15/18 19:55 Toxic Vacuolation Not Reportable 07/15/18 19:55 Dohle Bodies Not Reportable 07/15/18 19:55 Pelger-Huet Anomaly Not Reportable 07/15/18 19:55 Lindsay Rods Not Reportable 07/15/18 19:55 Platelet Estimate Appears normal 07/15/18 19:55 Clumped Platelets Not Reportable 07/15/18 19:55 Plt Clumps, EDTA Not Reportable 07/15/18 19:55 Large Platelets Not Reportable 07/15/18 19:55 Giant Platelets Not Reportable 07/15/18 19:55 Platelet Satelliting Not Reportable 07/15/18 19:55 Plt Morphology Comment Not Reportable 07/15/18 19:55 RBC Morphology Not Reportable 07/15/18 19:55 Dimorphic RBCs Not Reportable 07/15/18 19:55 Polychromasia Not Reportable 07/15/18 19:55 Hypochromasia Not Reportable 07/15/18 19:55 Poikilocytosis Few 07/15/18 19:55 Anisocytosis 1+ 07/15/18 19:55 Microcytosis Not Reportable 07/15/18 19:55 Macrocytosis Not Reportable 07/15/18 19:55 Spherocytes Not Reportable 07/15/18 19:55 Pappenheimer Bodies Not Reportable 07/15/18 19:55 Sickle Cells Not Reportable 07/15/18 19:55 Target Cells Not Reportable 07/15/18 19:55 Tear Drop Cells Not Reportable 07/15/18 19:55 Ovalocytes Not Reportable 07/15/18 19:55 Helmet Cells Not Reportable 07/15/18 19:55 [place] Bodies Not Reportable 07/15/18 19:55 Saline Rings Not Reportable 07/15/18 19:55 Lawrence Cells Not Reportable 07/15/18 19:55 Bite Cells Not Reportable 07/15/18 19:55 Crenated Cell Not Reportable 07/15/18 19:55 Elliptocytes Not Reportable 07/15/18 19:55 Acanthocytes (Spur) Not Reportable 07/15/18 19:55 Rouleaux Not Reportable 07/15/18 19:55 Hemoglobin C Crystals Not Reportable 07/15/18 19:55 Schistocytes Rare 07/15/18 19:55 Malaria parasites Not Reportable 07/15/18 19:55 Emerson Bodies Not Reportable 07/15/18 19:55 Hem Pathologist Commnt No 07/15/18 19:55 POC ABG pH 7.328 (7.35-7.45) L 07/16/18 07:50 POC ABG pCO2 50.0 (35-45) H 07/16/18 07:50 POC ABG pO2 89 (80-105) 07/16/18 07:50 POC ABG HCO3 26.2 07/16/18 07:50 POC ABG Total CO2 28 07/16/18 07:50 POC ABG O2 Sat 96 07/16/18 07:50 POC ABG Base Excess 0 07/16/18 07:50 FiO2 35 % 07/16/18 07:50 Sodium 144 mmol/L (137-145) 07/15/18 19:55 Potassium 4.7 mmol/L (3.6-5.0) 07/15/18 19:55 Chloride 100.7 mmol/L (98-107) 07/15/18 19:55 Carbon Dioxide 36 mmol/L (22-30) H 07/15/18 19:55 Anion Gap 12 mmol/L 07/15/18 19:55 BUN 12 mg/dL (7-17) 07/15/18 19:55 Creatinine 0.6 mg/dL (0.7-1.2) L 07/15/18 19:55 Estimated GFR > 60 ml/min 07/15/18 19:55 BUN/Creatinine Ratio 20 % 07/15/18 19:55 Glucose 172 mg/dL (65-100) H 07/15/18 19:55 Lactic Acid 3.60 mmol/L (0.7-2.0) H* 07/15/18 23:27 Calcium 9.1 mg/dL (8.4-10.2) 07/15/18 19:55 - Imaging and Cardiology Chest x-ray: image reviewed (no clear infiltrates noted)
[2018-07-16] MEDS: PROTONIX PO SCH (14:21)
[2018-07-16] MEDS: SOLU-Medrol IV SCH ×2 (15:13→21:49)
[2018-07-16] MEDS: fentaNYL DRIP Premix 2,000 MCG/100 ML BAG IV SCH (15:58)
[2018-07-16] MEDS: VANCOMYCIN/NS 1 GM/250 ML 1 GM/250 ML BAG IV SCH (17:13)
[2018-07-16] MEDS: BROVANA NEBU IH SCH (19:43)
[2018-07-16] MEDS: PULMICORT IH SCH (19:43)
[2018-07-16] MEDS: SINGULAIR PO SCH (21:48)
[2018-07-16] MEDS: COREG PO SCH (21:48)
--- NOTE | 2018-07-17 00:10 | Consultation ---
PULMONARY CRITICAL CARE CONSULTATION NOTE CONSULTING PHYSICIAN: Soto Rene MD REASON FOR CONSULTATION: Acute hypoxemic respiratory failure, on mechanical ventilator support. CHIEF COMPLAINT AND HISTORY OF PRESENT ILLNESS: As follows: The patient is a 63-year-old -[place] female with past medical history significant for home oxygen-dependent chronic obstructive lung disease, who came into the Emergency Room after about 2-3 days of increasing shortness of breath and dyspnea on exertion. She denied any fevers or chills. She denied nausea or vomiting. She denies sick contacts. She had been using her albuterol treatments at home and had had multiple treatments. She denies medication noncompliance. Otherwise, in the Emergency Room, she was found to be in significant respiratory distress and required intubation and mechanical ventilatory support. When I stopped by to see her, she was resting peacefully in bed. She was still tight and wheezing even near audible wheezing. She had failed spontaneous breathing trial earlier on. She denies any new leg pain or swelling either unilaterally or bilaterally. Now with regards to her tobacco use/abuse history, she has a 10+ pack year tobacco smoking history, but states no longer smoking. This is as much of the history of presentation as I have. PAST MEDICAL HISTORY: Again, significant for history of hypertension, history of COPD and history of remote tobacco abuse. PAST SURGICAL HISTORY: She denied. MEDICATIONS: She was on at the time I stopped by to see her were reviewed, pertinent medications include the following: Tylenol 650 mg p.o. q. 4 hours p.r.n. fever greater than 101. All p.o. meds via the feeding tube. Brovana 15 mg nebulized q. 12 hours, Pulmicort 0.5 mg nebulized q. 12 hours, Coreg 6.25 mg p.o. b.i.d., cefepime 2 grams IV q. 12 hours, fentanyl 50 mcg IV q. 10 minutes p.r.n. pain, but also fentanyl drip at 1 mcg/kg per hour. Propofol was going at 7 mcg/kg/minute when I saw her. Singulair 10 mg p.o. at bedtime. She was on a Levophed drip earlier at 2 mcg per minute. Protonix 40 mg p.o. daily and vancomycin 1 gram IV q. 12 hours. ALLERGIES: PEANUTS, TO ATROVENT AND TO SHELLFISH. Nature of this allergy is unknown. DIET: Thin looking lady, acute weight loss or gain history is unknown. FAMILY AND SOCIAL HISTORY: Lives in the community. She has a remote 10+ pack year tobacco smoking history. Denies current alcohol, tobacco, or illicit drug use or abuse. Family history is otherwise unknown. REVIEW OF SYSTEMS: Difficult to obtain secondary to her mental and medical condition; however, since she has been here, no gross hematochezia or melena, no gross hematuria, no hematemesis, no hemoptysis, no witnessed seizures. She denied acute chest pain or other pain. Complete 13-system review of systems was obtained as best as I could. Pertinent positives and/or negatives as in body of history above, otherwise noncontributory. PHYSICAL EXAMINATION: VITAL SIGNS: On examination, she had a low grade fever at presentation 99.2 degrees Fahrenheit with a pulse of 128, respiratory rate of 21, blood pressure 206/99, O2 sats were 98%, inspired oxygen concentration at the time was not recorded. When I stopped by to see her, O2 sats were about 98% that was on the assist control mode of her vent of respiration. Tidal volumes 500, rate of 22, PEEP of 6, now 35% FiO2. GENERAL: She is a thin, chronically ill looking -[place] female, normocephalic, atraumatic, intubated and with mildly increased respiratory effort on the mechanical ventilator machine. HEAD, EYES, EARS, NOSE AND THROAT: She is anicteric. No conjunctival erythema. Oropharynx is moist. Endotracheal tube is in place, taped at the lips around 23 cm. Grossly, no jugular venous distention, no thyromegaly, no palpable lymph nodes in the supraclavicular or submandibular lymph node chains. LUNGS: Auscultation of both lung santoro revealed bilateral expiratory wheezing and rhonchi with prolonged expiratory phase. HEART: Sounds 1 and 2 are heard. They were regular in rate and rhythm at the time of my evaluation. No rubs or murmurs. ABDOMEN: Soft, flat. Bowel sounds are positive, nontender. No palpable hepatosplenomegaly. EXTREMITIES: Without overt digital clubbing or cyanosis and no significant pedal edema. Dorsalis pedis pulses are palpable bilaterally. NEUROLOGIC: Pupils are equal, round, about 3 mm, reactive to light. Extraocular muscle movements are intact. She moves all 4 extremities spontaneously. The skin is of poor turgor and particularly over the anterior chest wall with a little bit of a hypopigmented rash, otherwise no cellulitis, no decubitus ulcers. LABORATORY DATA: From my review, admission white cell count 14,300, hemoglobin 14.6, hematocrit 44.9 and platelet count 371. No band forms reported. Arterial blood gas at presentation showed a pH of 7.31, pCO2 of 65 and a pO2 of 220 that was on the mechanical ventilator I believe. Serum sodium was 144, potassium 4.7, chloride 101, bicarbonate 36, BUN was 12, creatinine was 0.6, glucose 172. Lactic acid level was 3.6. No microbiology studies to date. RADIOGRAPHIC STUDIES: I am unable to pull up the chest x-ray. I have reviewed the radiologist's interpretation and essentially documents right lung infiltrates, right lower lobe infiltrates, a tiny right pleural effusion. ET tube in the mid trachea. ASSESSMENT: 1. Acute on chronic hypoxemic respiratory failure. 2. Acute chronic obstructive pulmonary disease exacerbation. 3. Right lower lobe pneumonia, community acquired. 4. Leukocytosis. 5. Hypercapnic respiratory failure. 6. Elevated lactic acid level. 7. Hypertensive urgency at presentation. 8. History of hypertension. PLAN: We will continue mechanical ventilator support in the short time. She has failed spontaneous breathing trial this morning. We will continue daily spontaneous breathing trials. Sedation assessment trials will also be attempted daily. Oxygen will be weaned to keep sats greater than or equal to about 90% in the short term. Aspiration precautions will be maintained. Ventilator-associated pneumonia bundle has been instituted. I will begin her on systemic steroid therapy, Solu-Medrol 60 mg IV q. 8 hours. We will continue long and short-acting bronchodilators. Empiric antibiotic therapy will continue. We will make sure tracheal aspirate has been sent and I will send 2 sets of blood cultures. I should mention I believe she has a central line. A chest x-ray is going to be ordered to confirm position of that central line. Mobility protocol will be instituted for pressure ulcer prophylaxis. She will be continued on GI prophylaxis. I am going to begin enteral nutrition. DVT prophylaxis will also be continued, heparin. Flu and pneumonia vaccination will be addressed per protocol. Thank you very much for the consult. We will follow along and make further recommendations as picture progresses/becomes clearer. I should mention I will also get a CRP level and repeat the lactic acid level and uses adjuncts to aid antibiotic de-escalation. I do also feel like we need to rule out venous thromboembolic phenomenon as the cause of this decompensation. I will get a stat D-dimer level, plus or minus, a CT angiogram of her chest in this lady. She is critically ill, on life-sustaining interventions including mechanical ventilator support at high risk for further deterioration in the cardiopulmonary systems including the risk of . At this time, I spent about 35-40 minutes of critical care time without overlap and excluding any procedural time that may be necessary. JOB# [id number] RUTH/SHAHEEN GARCIA
[2018-07-17 03:29] LABS: Hematocrit 34.5 % (30.3-42.9); Hemoglobin 11.2 gm/dl (10.1-14.3); Mean Corpuscular HGB Conc 32 % (30-34); Mean Corpuscular Volume 104 fl (79-97); Platelet Count 250 K/mm3 (140-440); Red Blood Count 3.31 M/mm3 (3.65-5.03); Red Cell Distribution Width 14.1 % (13.2-15.2)
[2018-07-17] MEDS: NACL 0.9% 1000 ML 1,000 ML IV SCH ×3 (03:47→18:51)
[2018-07-17 03:54] LABS: BUN/Creatinine Ratio 42; Blood Urea Nitrogen 21 mg/dL (7-17); Hemolysis Index 6
[2018-07-17] MEDS: SOLU-Medrol IV SCH ×3 (05:20→21:03)
[2018-07-17 06:12] LABS: Bilirubin,Urine NEG (Negative); Blood,Urine SM (Negative); Color,Urine Yellow (Yellow); Hyaline Casts,Urine 1 /LPF; Mucus,Urine FEW /HPF; Protein,Urine <15 mg/dL mg/dL (Negative); Urobilinogen,Urine < 2.0 mg/dL (<2.0)
[2018-07-17] MEDS: BROVANA NEBU IH SCH ×2 (08:44→20:49)
[2018-07-17] MEDS: PULMICORT IH SCH ×2 (08:44→20:49)
[2018-07-17] MEDS: VANCOMYCIN/NS 1 GM/250 ML 1 GM/250 ML BAG IV SCH ×2 (09:07→18:50)
[2018-07-17] MEDS: COREG PO SCH ×2 (09:45→22:00)
[2018-07-17] MEDS: HEPARIN SUB-Q SCH ×2 (09:54→21:03)
[2018-07-17] MEDS: PROTONIX PO SCH (09:55)
[2018-07-17] MEDS: MAXIPIME/NS 2 GM/100 ML 2 GM/100 ML BAG IV SCH ×2 (09:57→21:03)
--- NOTE | 2018-07-17 12:47 | Progress Note ---
Assessment and Plan Acute on chronic hypoxemic respiratory failure. Acute chronic obstructive pulmonary disease exacerbation. Right lower lobe pneumonia, community acquired. Leukocytosis. Hypercapnic respiratory failure. Elevated lactic acid level. Hypertensive urgency at presentation. History of hypertension. - continue daily SBT evaluation - continue daily SAT's - sedation for target RASS 0 to -1 - continue bronchodilators with pulmonary hygiene per RT - continue systemic steroid therapy - continue montelukast therapy - continue to wean oxygen for target O2 Sat's > 90% - VAP bundle addressed - continue empiric AB's and de-escalate based on clinical and microbiologic data - continue enteral nutrition as tolerated - mobility protocol for pressure ulcer prophylaxis - GI & VTE prophylaxis - glycemic control with SSI for target BG 140 - 180 mg/dL - continue other care per attending / other consultants ...... re-evaluate in am & prn ... care plan discussed with attending The high probability of a clinically significant, sudden or life threatening deterioration of the [Pulmonary,cardiac and Vascular] system(s) required my full and direct attention, intervention and personal management. The aggregate critical care time was [35] minutes. This time is in addition to time spent performing reported procedures but includes the following: [x] Data Review and interpretation [x] Patient assessment and monitoring of vital signs [x] Documentation Subjective Date of service: 07/17/18 Principal diagnosis: Ac on ch hypoxemic Resp failure; AE-COPD; RLL PNA (CAP); Hypercapnic Failur Interval history: Patient is seen today for: Acute on chronic hypoxemic respiratory failure; Acute chronic obstructive pulmonary disease exacerbation; Right lower lobe pneumonia, community acquired; Leukocytosis; Hypercapnic respiratory failure. Seen and examined at bedside; 24hour events reviewed; nursing and respiratory care staff consulted; no adverse overnight events reported to me; remains on MVS; failed SBT; still wheezing; denies acute chest pains or palpitations; No N/V/F/C Objective Vital Signs - 12hr 07/17/18 07/17/18 07/17/18 01:00 01:15 01:30 Temperature Pulse Rate 63 62 61 Pulse Rate [ Anterior Bilateral Throughout] Pulse Rate [ From Monitor] Respiratory 22 22 22 Rate Respiratory Rate [Anterior Bilateral Throughout] Blood Pressure 125/59 126/55 117/55 O2 Sat by Pulse 95 94 93 Oximetry 07/17/18 07/17/18 07/17/18 01:45 02:00 02:15 Temperature Pulse Rate 60 61 65 Pulse Rate [ Anterior Bilateral Throughout] Pulse Rate [ From Monitor] Respiratory 22 22 22 Rate Respiratory Rate [Anterior Bilateral Throughout] Blood Pressure 120/55 114/55 117/58 O2 Sat by Pulse 93 94 93 Oximetry 07/17/18 07/17/18 07/17/18 02:30 02:45 03:00 Temperature Pulse Rate 61 58 L 58 L Pulse Rate [ Anterior Bilateral Throughout] Pulse Rate [ From Monitor] Respiratory 22 22 22 Rate Respiratory Rate [Anterior Bilateral Throughout] Blood Pressure 116/57 116/55 116/53 O2 Sat by Pulse 93 94 93 Oximetry 07/17/18 07/17/18 07/17/18 03:15 03:30 03:45 Temperature Pulse Rate 58 L 59 L 56 L Pulse Rate [ Anterior Bilateral Throughout] Pulse Rate [ From Monitor] Respiratory 22 22 22 Rate Respiratory Rate [Anterior Bilateral Throughout] Blood Pressure 122/55 112/52 111/56 O2 Sat by Pulse 93 94 93 Oximetry 07/17/18 07/17/18 07/17/18 03:52 04:00 04:15 Temperature 99.8 F H Pulse Rate 63 57 L 57 L Pulse Rate [ Anterior Bilateral Throughout] Pulse Rate [ From Monitor] Respiratory 22 22 Rate Respiratory Rate [Anterior Bilateral Throughout] Blood Pressure 110/59 117/57 115/54 O2 Sat by Pulse 97 93 93 Oximetry 07/17/18 07/17/18 07/17/18 04:20 05:00 06:00 Temperature Pulse Rate 57 L 123 H Pulse Rate [ Anterior Bilateral Throughout] Pulse Rate [ 59 L From Monitor] Respiratory 23 22 21 Rate Respiratory Rate [Anterior Bilateral Throughout] Blood Pressure 111/53 207/108 O2 Sat by Pulse 98 93 99 Oximetry 07/17/18 07/17/18 07/17/18 07:00 08:00 08:44 Temperature 100.4 F H Pulse Rate 72 66 57 L Pulse Rate [ 62 Anterior Bilateral Throughout] Pulse Rate [ 61 From Monitor] Respiratory 22 22 Rate Respiratory 22 Rate [Anterior Bilateral Throughout] Blood Pressure 117/64 126/54 119/56 O2 Sat by Pulse 93 94 97 Oximetry 07/17/18 07/17/18 07/17/18 09:00 09:45 10:00 Temperature Pulse Rate 85 57 L 88 Pulse Rate [ Anterior Bilateral Throughout] Pulse Rate [ From Monitor] Respiratory 22 20 Rate Respiratory Rate [Anterior Bilateral Throughout] Blood Pressure 124/71 123/66 127/68 O2 Sat by Pulse 95 96 Oximetry 07/17/18 07/17/18 11:00 12:00 Temperature Pulse Rate 54 L 55 L Pulse Rate [ Anterior Bilateral Throughout] Pulse Rate [ From Monitor] Respiratory 22 22 Rate Respiratory Rate [Anterior Bilateral Throughout] Blood Pressure 130/56 119/62 O2 Sat by Pulse 94 93 Oximetry Constitutional: appears uncomfortable, other (elderly thin looking AAF, normocephalic and atraumatic with increased resp effort) Eyes: non-icteric ENT: oropharynx moist, other (ETT 23 cm LILI) Neck: supple, no lymphadenopathy, no JVD, other (No thyromegaly) Effort: mildly labored Ascultation: Bilateral: diminished breath sounds, wheezes, rhonchi Percussion: Bilateral: not dull Cardiovascular: regular rate and rhythm Gastrointestinal: normoactive bowel sounds, soft, non-tender, non-distended Integumentary: rash Extremities: no cyanosis, no edema, pulses normal, no ischemia or petechiae Neurologic: normal mental status, non-focal exam, pupils equal and round, motor strength normal and Psychiatric: mood appropriate, anxious CBC and BMP: 07/17/18 03:11 07/17/18 03:11 ABG, PT/INR, D-dimer: ABG POC ABG pH 7.366 (7.35-7.45) 07/17/18 04:00 POC ABG pCO2 46.3 (35-45) H 07/17/18 04:00 POC ABG pO2 124 (80-105) H 07/17/18 04:00 POC ABG HCO3 26.5 07/17/18 04:00 POC ABG Total CO2 28 07/17/18 04:00 POC ABG O2 Sat 99 07/17/18 04:00 PT/INR, D-dimer D-Dimer 498.74 ng/mlDDU (0-234) H 07/16/18 16:00 Abnormal lab findings: Abnormal Labs 07/15/18 07/15/18 07/15/18 19:55 19:55 20:04 WBC 14.3 H RBC Hgb 14.6 H Hct 44.9 H MCV 106 H MCH 34 H Seg Neuts % (Manual) 96.0 H Lymphocytes % (Manual) 3.0 L Seg Neutrophils # Man 13.7 H Lymphocytes # (Manual) 0.4 L D-Dimer POC ABG pH 7.105 L POC ABG pCO2 120.2 H POC ABG pO2 71 L Chloride Carbon Dioxide 36 H BUN Creatinine 0.6 L Glucose 172 H Lactic Acid Calcium C-Reactive Protein 07/15/18 07/15/18 07/15/18 20:46 21:18 22:05 WBC RBC Hgb Hct MCV MCH Seg Neuts % (Manual) Lymphocytes % (Manual) Seg Neutrophils # Man Lymphocytes # (Manual) D-Dimer POC ABG pH 7.305 L POC ABG pCO2 64.5 H POC ABG pO2 220 H Chloride Carbon Dioxide BUN Creatinine Glucose Lactic Acid 2.40 H* 3.40 H* Calcium C-Reactive Protein 07/15/18 07/16/18 07/16/18 23:27 07:50 16:00 WBC RBC Hgb Hct MCV MCH Seg Neuts % (Manual) Lymphocytes % (Manual) Seg Neutrophils # Man Lymphocytes # (Manual) D-Dimer 498.74 H POC ABG pH 7.328 L POC ABG pCO2 50.0 H POC ABG pO2 Chloride Carbon Dioxide BUN Creatinine Glucose Lactic Acid 3.60 H* Calcium C-Reactive Protein 07/16/18 07/17/18 07/17/18 16:00 03:11 03:11 WBC RBC 3.31 L Hgb Hct MCV 104 H MCH 34 H Seg Neuts % (Manual) Lymphocytes % (Manual) Seg Neutrophils # Man Lymphocytes # (Manual) D-Dimer POC ABG pH POC ABG pCO2 POC ABG pO2 Chloride 108.8 H Carbon Dioxide BUN 21 H Creatinine 0.5 L Glucose 132 H Lactic Acid Calcium 8.0 L C-Reactive Protein 1.60 H 07/17/18 04:00 WBC RBC Hgb Hct MCV MCH Seg Neuts % (Manual) Lymphocytes % (Manual) Seg Neutrophils # Man Lymphocytes # (Manual) D-Dimer POC ABG pH POC ABG pCO2 46.3 H POC ABG pO2 124 H Chloride Carbon Dioxide BUN Creatinine Glucose Lactic Acid Calcium C-Reactive Protein Chest x-ray: pending Allied health notes reviewed: nursing
--- NOTE | 2018-07-17 13:29 | Progress Note ---
Assessment and Plan Assessment and plan: Patient is a 63-year-old female with known history of hypertension, asthma, COPD, previously intubated in the past admitted with shortness of breath and presumed sepsis although etiology not known at this time. Acute respiratory failure with hypercarpenia SIRS Diabetes mellitus Lactic acidosis COPD with Exacerbation GERD Moderate to Severe Protein calorie Malnutrition Plan: Continue supportive care with ICU care Continue Abx For Empiric coverage Adjust insulin Patient recently on Steriods which could explain the leukocytosis. Pulmonary Management per Senior Environmental Practice Leader Start Tube feed DVT/GI prophy The high probability of a clinically significant, sudden or life threatening deterioration of the [pulmonary] system(s) required my full and direct attention, intervention and personal management. The aggregate critical care time was [35] minutes. This time is in addition to time spent performing re ported procedures but includes the following: [x] Data Review and interpretation [x] Patient assessment and monitoring of vital signs [x] Documentation [x] Medication orders and management History Interval history: Patient seen and examined, remains intubated, and sedated. Hospitalist Physical - Physical exam Narrative exam: VITAL SIGNS: Reviewed. GENERAL: The patient appeared well nourished and normally developed. Currently intubated on mechanical ventilation Vital signs as documented. HEAD: No signs of head trauma. EYES: Pupils are equal. EARS: Hearing grossly intact. MOUTH: ET tubes in place NECK: No adenopathy, no JVD. CHEST: Chest with clear breath sounds bilaterally. No wheezes, rales, or rhonchi. CARDIAC: Regular rate and rhythm. S1 and S2, without murmurs, gallops, or rubs. VASCULAR: No Edema. Peripheral pulses normal and equal in all extremities. ABDOMEN: Soft, without detectable tenderness. No sign of distention. No rebound or guarding, and no masses palpated. Bowel Sounds normal. MUSCULOSKELETAL: No edema noted NEUROLOGIC EXAM: AWAKE, MOVING EXT PSYCHIATRIC: UNABLE TO ASSESS SKIN: No rash or lesions. - Constitutional Vitals: Temp Pulse Resp BP Pulse Ox 100.4 F H 55 L 24 119/62 96 07/17/18 08:00 07/17/18 12:00 07/17/18 12:00 07/17/18 12:00 07/17/18 12:00 Results - Labs CBC & Chem 7: 07/17/18 03:11 07/17/18 03:11 Labs: Laboratory Last Values WBC 7.1 K/mm3 (4.5-11.0) 07/17/18 03:11 RBC 3.31 M/mm3 (3.65-5.03) L 07/17/18 03:11 Hgb 11.2 gm/dl (10.1-14.3) D 07/17/18 03:11 Hct 34.5 % (30.3-42.9) D 07/17/18 03:11 MCV 104 fl (79-97) H 07/17/18 03:11 MCH 34 pg (28-32) H 07/17/18 03:11 MCHC 32 % (30-34) 07/17/18 03:11 RDW 14.1 % (13.2-15.2) 07/17/18 03:11 Plt Count 250 K/mm3 (140-440) 07/17/18 03:11 Add Manual Diff Complete 07/15/18 19:55 Total Counted 100 07/15/18 19:55 Seg Neutrophils % Sound Technician Supervisor 07/15/18 19:55 Seg Neuts % (Manual) 96.0 % (40.0-70.0) H 07/15/18 19:55 Band Neutrophils % 0 % 07/15/18 19:55 Lymphocytes % (Manual) 3.0 % (13.4-35.0) L 07/15/18 19:55 Reactive Lymphs % (Man) 0 % 07/15/18 19:55 Monocytes % (Manual) 1.0 % (0.0-7.3) 07/15/18 19:55 Eosinophils % (Manual) 0 % (0.0-4.3) 07/15/18 19:55 Basophils % (Manual) 0 % (0.0-1.8) 07/15/18 19:55 Metamyelocytes % 0 % 07/15/18 19:55 Myelocytes % 0 % 07/15/18 19:55 Promyelocytes % 0 % 07/15/18 19:55 Blast Cells % 0 % 07/15/18 19:55 Nucleated RBC % Not Reportable 07/15/18 19:55 Seg Neutrophils # Man 13.7 K/mm3 (1.8-7.7) H 07/15/18 19:55 Band Neutrophils # 0.0 K/mm3 07/15/18 19:55 Lymphocytes # (Manual) 0.4 K/mm3 (1.2-5.4) L 07/15/18 19:55 Abs React Lymphs (Man) 0.0 K/mm3 07/15/18 19:55 Monocytes # (Manual) 0.1 K/mm3 (0.0-0.8) 07/15/18 19:55 Eosinophils # (Manual) 0.0 K/mm3 (0.0-0.4) 07/15/18 19:55 Basophils # (Manual) 0.0 K/mm3 (0.0-0.1) 07/15/18 19:55 Metamyelocytes # 0.0 K/mm3 07/15/18 19:55 Myelocytes # 0.0 K/mm3 07/15/18 19:55 Promyelocytes # 0.0 K/mm3 07/15/18 19:55 Blast Cells # 0.0 K/mm3 07/15/18 19:55 WBC Morphology Not Reportable 07/15/18 19:55 Hypersegmented Neuts Not Reportable 07/15/18 19:55 Hyposegmented Neuts Not Reportable 07/15/18 19:55 Hypogranular Neuts Not Reportable 07/15/18 19:55 Smudge Cells Not Reportable 07/15/18 19:55 Toxic Granulation Not Reportable 07/15/18 19:55 Toxic Vacuolation Not Reportable 07/15/18 19:55 Dohle Bodies Not Reportable 07/15/18 19:55 Pelger-Huet Anomaly Not Reportable 07/15/18 19:55 Lindsay Rods Not Reportable 07/15/18 19:55 Platelet Estimate Appears normal 07/15/18 19:55 Clumped Platelets Not Reportable 07/15/18 19:55 Plt Clumps, EDTA Not Reportable 07/15/18 19:55 Large Platelets Not Reportable 07/15/18 19:55 Giant Platelets Not Reportable 07/15/18 19:55 Platelet Satelliting Not Reportable 07/15/18 19:55 Plt Morphology Comment Not Reportable 07/15/18 19:55 RBC Morphology Not Reportable 07/15/18 19:55 Dimorphic RBCs Not Reportable 07/15/18 19:55 Polychromasia Not Reportable 07/15/18 19:55 Hypochromasia Not Reportable 07/15/18 19:55 Poikilocytosis Few 07/15/18 19:55 Anisocytosis 1+ 07/15/18 19:55 Microcytosis Not Reportable 07/15/18 19:55 Macrocytosis Not Reportable 07/15/18 19:55 Spherocytes Not Reportable 07/15/18 19:55 Pappenheimer Bodies Not Reportable 07/15/18 19:55 Sickle Cells Not Reportable 07/15/18 19:55 Target Cells Not Reportable 07/15/18 19:55 Tear Drop Cells Not Reportable 07/15/18 19:55 Ovalocytes Not Reportable 07/15/18 19:55 Helmet Cells Not Reportable 07/15/18 19:55 Beltran-Blades Bodies Not Reportable 07/15/18 19:55 [place] Rings Not Reportable 07/15/18 19:55 Tanja Cells Not Reportable 07/15/18 19:55 Bite Cells Not Reportable 07/15/18 19:55 Crenated Cell Not Reportable 07/15/18 19:55 Elliptocytes Not Reportable 07/15/18 19:55 Acanthocytes (Spur) Not Reportable 07/15/18 19:55 Rouleaux Not Reportable 07/15/18 19:55 Hemoglobin C Crystals Not Reportable 07/15/18 19:55 Schistocytes Rare 07/15/18 19:55 Malaria parasites Not Reportable 07/15/18 19:55 Emerson Bodies Not Reportable 07/15/18 19:55 Hem Pathologist Commnt No 07/15/18 19:55 D-Dimer 498.74 ng/mlDDU (0-234) H 07/16/18 16:00 POC ABG pH 7.366 (7.35-7.45) 07/17/18 04:00 POC ABG pCO2 46.3 (35-45) H 07/17/18 04:00 POC ABG pO2 124 (80-105) H 07/17/18 04:00 POC ABG HCO3 26.5 07/17/18 04:00 POC ABG Total CO2 28 07/17/18 04:00 POC ABG O2 Sat 99 07/17/18 04:00 POC ABG Base Excess 1 07/17/18 04:00 FiO2 35 % 07/17/18 04:00 Sodium 140 mmol/L (137-145) 07/17/18 03:11 Potassium 4.4 mmol/L (3.6-5.0) 07/17/18 03:11 Chloride 108.8 mmol/L (98-107) H 07/17/18 03:11 Carbon Dioxide 27 mmol/L (22-30) D 07/17/18 03:11 Anion Gap 9 mmol/L 07/17/18 03:11 BUN 21 mg/dL (7-17) H 07/17/18 03:11 Creatinine 0.5 mg/dL (0.7-1.2) L 07/17/18 03:11 Estimated GFR > 60 ml/min 07/17/18 03:11 BUN/Creatinine Ratio 42 % 07/17/18 03:11 Glucose 132 mg/dL (65-100) H 07/17/18 03:11 Lactic Acid 1.20 mmol/L (0.7-2.0) 07/16/18 16:00 Calcium 8.0 mg/dL (8.4-10.2) L 07/17/18 03:11 C-Reactive Protein 1.60 mg/dL (0.00-1.30) H 07/16/18 16:00 Urine Color Yellow (Yellow) 07/16/18 05:45 Urine Turbidity Clear (Clear) 07/16/18 05:45 Urine pH 6.0 (5.0-7.0) 07/16/18 05:45 Ur Specific [place] 1.021 (1.003-1.030) 07/16/18 05:45 Urine Protein <15 mg/dl mg/dL (Negative) 07/16/18 05:45 Urine Glucose (UA) Neg mg/dL (Negative) 07/16/18 05:45 Urine Ketones Neg mg/dL (Negative) 07/16/18 05:45 Urine Blood Sm (Negative) 07/16/18 05:45 Urine Nitrite Neg (Negative) 07/16/18 05:45 Urine Bilirubin Neg (Negative) 07/16/18 05:45 Urine Urobilinogen < 2.0 mg/dL (<2.0) 07/16/18 05:45 Ur Leukocyte Esterase Neg (Negative) 07/16/18 05:45 Urine WBC (Auto) 3.0 /HPF (0.0-6.0) 07/16/18 05:45 Urine RBC (Auto) 13.0 /HPF (0.0-6.0) 07/16/18 05:45 Hyaline Casts 1 /LPF 07/16/18 05:45 Waxy Casts 9 /LPF 07/16/18 05:45 Urine Mucus Few /HPF 07/16/18 05:45 Nutrition/Malnutrition Assess - Dietary Evaluation Nutrition/Malnutrition Findings: Nutrition Notes Start: 07/16/18 15:21 Freq: Status: Active Protocol: Document 07/16/18 15:21 RM (Rec: 07/16/18 15:27 RM [id number]) Nutrition Notes Need for Assessment generated from: review engineer Initial or Follow up Assessment Current Diagnosis COPD Sepsis Hypertension Respiratory Failure Other Pertinent Diagnosis R lung pneu Current Diet No diet ordered Labs/Tests Reviewed Pertinent Medications Propofol Height 5 ft 5 in Weight 54.2 kg [place] Body Weight (kg) 56.81 BMI 19.8 Subjective/Other Information Screened for skin risk. [place] 15 points. Pt on vent. Burn Absent Trauma Absent #1 Nutrition Diagnosis Inadequate oral intake Etiology on vent As Evidenced by Signs and Symptoms no diet ordered Is patient on ventilator? No Is Patient Ambulatory and/or Out of Bed No REE-([facility]-confined to bed) 1334.652 Calculation Used for Recommendations [facility] Additional Notes Protein Needs: 81-108g (1.5-2g /kg) Fluid Needs: 1 ml/kcal Nutrition Intervention Change Diet Order: TF consult Goal #1 TF consult Anticipated Discharge Needs: Unable to determine at this time Follow-Up By: 07/18/18 Additional Comments Follow POC, TF consult
[2018-07-17] MEDS ORDERED: PANCREAZE DR 10,500 UNIT FEEDTUBE PRN (14:29)
[2018-07-17] MEDS ORDERED: SODIUM BICARBONATE FEEDTUBE PRN (14:29)
[2018-07-17] MEDS ORDERED: SIMPLE SYRUP FEEDTUBE PRN ×2 (14:29)
[2018-07-17] MEDS: SINGULAIR PO SCH (21:04)
[2018-07-18] MEDS: NACL 0.9% 1000 ML 1,000 ML IV SCH ×2 (03:28→13:01)
[2018-07-18] MEDS: fentaNYL DRIP Premix 2,000 MCG/100 ML BAG IV SCH (03:28)
[2018-07-18] MEDS: SOLU-Medrol IV SCH ×3 (05:02→21:11)
[2018-07-18] MEDS: VANCOMYCIN/NS 1 GM/250 ML 1 GM/250 ML BAG IV SCH (05:02)
[2018-07-18] MEDS: PULMICORT IH SCH ×2 (08:13→20:09)
[2018-07-18] MEDS: BROVANA NEBU IH SCH ×2 (08:13→20:09)
[2018-07-18] MEDS: PREVACID SOLUTAB FEEDTUBE SCH (10:42)
[2018-07-18] MEDS: HEPARIN SUB-Q SCH ×2 (10:43→21:11)
[2018-07-18] MEDS: COREG PO SCH (10:43)
[2018-07-18] MEDS: MAXIPIME/NS 2 GM/100 ML 2 GM/100 ML BAG IV SCH (10:43)
[2018-07-18] MEDS: PROTONIX PO SCH (10:55)
[2018-07-18] MEDS: TYLENOL FEEDTUBE PRN (11:38)
[2018-07-18] MEDS: LEVAQUIN 750MG/150ML 750 MG/150 ML BAG IV SCH (16:04)
--- NOTE | 2018-07-18 17:20 | Progress Note ---
Assessment and Plan Assessment and plan: Patient is a 63-year-old female with known history of hypertension, asthma, COPD, previously intubated in the past admitted with shortness of breath and presumed sepsis although etiology not known at this time. Pateint was intubated for hypercarpenia and continues at this time. Acute respiratory failure with hypercarpenia SIRS Diabetes mellitus Lactic acidosis COPD with Exacerbation GERD Moderate to Severe Protein calorie Malnutrition Plan: Continue supportive care with ICU care Continue Abx For Empiric coverage Adjust insulin Patient recently on Steriods which could explain the leukocytosis. Pulmonary Management per Merchandising Stock Associate Start Tube feed DVT/GI prophy The high probability of a clinically significant, sudden or life threatening deterioration of the [pulmonary] system(s) required my full and direct attention, intervention and personal management. The aggregate critical care time was [35] minutes. This time is in addition to time spent performing reported procedures but includes the following: [x] Data Review and interpretation [x] Patient assessment and monitoring of vital signs [x] Documentation [x] Medication orders and management History Interval history: Patient seen and examined, remains intubated, and sedated. Hospitalist Physical - Physical exam Narrative exam: VITAL SIGNS: Reviewed. GENERAL: The patient appeared well nourished and normally developed. Currently intubated on mechanical ventilation Vital signs as documented. HEAD: No signs of head trauma. EYES: Pupils are equal. EARS: Hearing grossly intact. MOUTH: ET tubes in place NECK: No adenopathy, no JVD. CHEST: Chest with clear breath sounds bilaterally. No wheezes, rales, or rhonchi. CARDIAC: Regular rate and rhythm. S1 and S2, without murmurs, gallops, or rubs. VASCULAR: No Edema. Peripheral pulses normal and equal in all extremities. ABDOMEN: Soft, without detectable tenderness. No sign of distention. No rebound or guarding, and no masses palpated. Bowel Sounds normal. MUSCULOSKELETAL: No edema noted NEUROLOGIC EXAM: AWAKE, MOVING EXT PSYCHIATRIC: UNABLE TO ASSESS SKIN: No rash or lesions. - Constitutional Vitals: Temp Pulse Resp BP Pulse Ox 98.2 F 61 18 124/58 97 07/18/18 12:00 07/18/18 14:00 07/18/18 14:00 07/18/18 14:00 07/18/18 14:00 Results - Labs CBC & Chem 7: 07/17/18 03:11 07/17/18 03:11 Labs: Laboratory Last Values WBC 7.1 K/mm3 (4.5-11.0) 07/17/18 03:11 RBC 3.31 M/mm3 (3.65-5.03) L 07/17/18 03:11 Hgb 11.2 gm/dl (10.1-14.3) D 07/17/18 03:11 Hct 34.5 % (30.3-42.9) D 07/17/18 03:11 MCV 104 fl (79-97) H 07/17/18 03:11 MCH 34 pg (28-32) H 07/17/18 03:11 MCHC 32 % (30-34) 07/17/18 03:11 RDW 14.1 % (13.2-15.2) 07/17/18 03:11 Plt Count 250 K/mm3 (140-440) 07/17/18 03:11 Add Manual Diff Complete 07/15/18 19:55 Total Counted 100 07/15/18 19:55 Seg Neutrophils % Weight Checker 07/15/18 19:55 Seg Neuts % (Manual) 96.0 % (40.0-70.0) H 07/15/18 19:55 Band Neutrophils % 0 % 07/15/18 19:55 Lymphocytes % (Manual) 3.0 % (13.4-35.0) L 07/15/18 19:55 Reactive Lymphs % (Man) 0 % 07/15/18 19:55 Monocytes % (Manual) 1.0 % (0.0-7.3) 07/15/18 19:55 Eosinophils % (Manual) 0 % (0.0-4.3) 07/15/18 19:55 Basophils % (Manual) 0 % (0.0-1.8) 07/15/18 19:55 Metamyelocytes % 0 % 07/15/18 19:55 Myelocytes % 0 % 07/15/18 19:55 Promyelocytes % 0 % 07/15/18 19:55 Blast Cells % 0 % 07/15/18 19:55 Nucleated RBC % Not Reportable 07/15/18 19:55 Seg Neutrophils # Man 13.7 K/mm3 (1.8-7.7) H 07/15/18 19:55 Band Neutrophils # 0.0 K/mm3 07/15/18 19:55 Lymphocytes # (Manual) 0.4 K/mm3 (1.2-5.4) L 07/15/18 19:55 Abs React Lymphs (Man) 0.0 K/mm3 07/15/18 19:55 Monocytes # (Manual) 0.1 K/mm3 (0.0-0.8) 07/15/18 19:55 Eosinophils # (Manual) 0.0 K/mm3 (0.0-0.4) 07/15/18 19:55 Basophils # (Manual) 0.0 K/mm3 (0.0-0.1) 07/15/18 19:55 Metamyelocytes # 0.0 K/mm3 07/15/18 19:55 Myelocytes # 0.0 K/mm3 07/15/18 19:55 Promyelocytes # 0.0 K/mm3 07/15/18 19:55 Blast Cells # 0.0 K/mm3 07/15/18 19:55 WBC Morphology Not Reportable 07/15/18 19:55 Hypersegmented Neuts Not Reportable 07/15/18 19:55 Hyposegmented Neuts Not Reportable 07/15/18 19:55 Hypogranular Neuts Not Reportable 07/15/18 19:55 Smudge Cells Not Reportable 07/15/18 19:55 Toxic Granulation Not Reportable 07/15/18 19:55 Toxic Vacuolation Not Reportable 07/15/18 19:55 Dohle Bodies Not Reportable 07/15/18 19:55 Pelger-Huet Anomaly Not Reportable 07/15/18 19:55 Lindsay Rods Not Reportable 07/15/18 19:55 Platelet Estimate Appears normal 07/15/18 19:55 Clumped Platelets Not Reportable 07/15/18 19:55 Plt Clumps, EDTA Not Reportable 07/15/18 19:55 Large Platelets Not Reportable 07/15/18 19:55 Giant Platelets Not Reportable 07/15/18 19:55 Platelet Satelliting Not Reportable 07/15/18 19:55 Plt Morphology Comment Not Reportable 07/15/18 19:55 RBC Morphology Not Reportable 07/15/18 19:55 Dimorphic RBCs Not Reportable 07/15/18 19:55 Polychromasia Not Reportable 07/15/18 19:55 Hypochromasia Not Reportable 07/15/18 19:55 Poikilocytosis Few 07/15/18 19:55 Anisocytosis 1+ 07/15/18 19:55 Microcytosis Not Reportable 07/15/18 19:55 Macrocytosis Not Reportable 07/15/18 19:55 Spherocytes Not Reportable 07/15/18 19:55 Pappenheimer Bodies Not Reportable 07/15/18 19:55 Sickle Cells Not Reportable 07/15/18 19:55 Target Cells Not Reportable 07/15/18 19:55 Tear Drop Cells Not Reportable 07/15/18 19:55 Ovalocytes Not Reportable 07/15/18 19:55 Helmet Cells Not Reportable 07/15/18 19:55 [place] Bodies Not Reportable 07/15/18 19:55 Bruce Rings Not Reportable 07/15/18 19:55 [place] Cells Not Reportable 07/15/18 19:55 Bite Cells Not Reportable 07/15/18 19:55 Crenated Cell Not Reportable 07/15/18 19:55 Elliptocytes Not Reportable 07/15/18 19:55 Acanthocytes (Spur) Not Reportable 07/15/18 19:55 Rouleaux Not Reportable 07/15/18 19:55 Hemoglobin C Crystals Not Reportable 07/15/18 19:55 Schistocytes Rare 07/15/18 19:55 Malaria parasites Not Reportable 07/15/18 19:55 [place] Bodies Not Reportable 07/15/18 19:55 Hem Pathologist Commnt No 07/15/18 19:55 D-Dimer 498.74 ng/mlDDU (0-234) H 07/16/18 16:00 POC ABG pH 7.235 (7.35-7.45) L 07/18/18 11:22 POC ABG pCO2 75.6 (35-45) H 07/18/18 11:22 POC ABG pO2 67 (80-105) L 07/18/18 11:22 POC ABG HCO3 32.0 07/18/18 11:22 POC ABG Total CO2 34 07/18/18 11:22 POC ABG O2 Sat 88 07/18/18 11:22 POC ABG Base Excess 5 07/18/18 11:22 FiO2 30 % 07/18/18 11:22 Sodium 140 mmol/L (137-145) 07/17/18 03:11 Potassium 4.4 mmol/L (3.6-5.0) 07/17/18 03:11 Chloride 108.8 mmol/L (98-107) H 07/17/18 03:11 Carbon Dioxide 27 mmol/L (22-30) D 07/17/18 03:11 Anion Gap 9 mmol/L 07/17/18 03:11 BUN 21 mg/dL (7-17) H 07/17/18 03:11 Creatinine 0.5 mg/dL (0.7-1.2) L 07/17/18 03:11 Estimated GFR > 60 ml/min 07/17/18 03:11 BUN/Creatinine Ratio 42 % 07/17/18 03:11 Glucose 132 mg/dL (65-100) H 07/17/18 03:11 POC Glucose 114 (70-105) H 07/18/18 05:57 Lactic Acid 1.20 mmol/L (0.7-2.0) 07/16/18 16:00 Calcium 8.0 mg/dL (8.4-10.2) L 07/17/18 03:11 C-Reactive Protein 1.60 mg/dL (0.00-1.30) H 07/16/18 16:00 Urine Color Yellow (Yellow) 07/16/18 05:45 Urine Turbidity Clear (Clear) 07/16/18 05:45 Urine pH 6.0 (5.0-7.0) 07/16/18 05:45 Ur Specific [place] 1.021 (1.003-1.030) 07/16/18 05:45 Urine Protein <15 mg/dl mg/dL (Negative) 07/16/18 05:45 Urine Glucose (UA) Neg mg/dL (Negative) 07/16/18 05:45 Urine Ketones Neg mg/dL (Negative) 07/16/18 05:45 Urine Blood Sm (Negative) 07/16/18 05:45 Urine Nitrite Neg (Negative) 07/16/18 05:45 Urine Bilirubin Neg (Negative) 07/16/18 05:45 Urine Urobilinogen < 2.0 mg/dL (<2.0) 07/16/18 05:45 Ur Leukocyte Esterase Neg (Negative) 07/16/18 05:45 Urine WBC (Auto) 3.0 /HPF (0.0-6.0) 07/16/18 05:45 Urine RBC (Auto) 13.0 /HPF (0.0-6.0) 07/16/18 05:45 Hyaline Casts 1 /LPF 07/16/18 05:45 Waxy Casts 9 /LPF 07/16/18 05:45 Urine Mucus Few /HPF 07/16/18 05:45 Nutrition/Malnutrition Assess - Dietary Evaluation Nutrition/Malnutrition Findings: Nutrition Notes Start: 07/16/18 15:21 Freq: Status: Active Protocol: Document 07/17/18 14:15 RM (Rec: 07/17/18 14:29 RM [id number]) Nutrition Notes Initial or Follow up Brief Note Current Diagnosis COPD Diabetes Sepsis Hypertension Respiratory Failure Other Pertinent Diagnosis R lung pneu, GERD, SIRS Current Diet No diet ordered Labs/Tests Reviewed Pertinent Medications Propofol 1-2.5 ml/hr (26-66 kcal daily) Height 5 ft 5 in Weight 54.2 kg [place] Body Weight (kg) 56.81 BMI 19.8 Subjective/Other Information Consulted for TF recommendation. Burn Absent Trauma Absent #1 Nutrition Diagnosis Inadequate oral intake Diagnosis Progress(for reassessment Continues documentation) Is patient on ventilator? No Is Patient Ambulatory and/or Out of Bed No REE-([facility]-confined to bed) 1334.652 Calculation Used for Recommendations [facility] Additional Notes Protein Needs: 81-108g (1.5-2g /kg) Fluid Needs: 1 ml/kcal Nutrition Intervention Nutrition Support: Vital 1.2 at 50 ml/hr. Water flush of 100 mls q 4 hrs . Kcal 1,440 Protein (gm) 90 Fluid (mL) 973 Goal #1 TF tolerance Goal #2 Meet at least 75% of calorie and protein needs via TF Anticipated Discharge Needs: Unable to determine at this time Follow-Up By: 07/19/18 Additional Comments Follow for new TF
[2018-07-18] MEDS ORDERED: ATIVAN IV PRN (17:32)
--- NOTE | 2018-07-18 17:32 | Progress Note ---
Assessment and Plan Acute on chronic hypoxemic respiratory failure. Acute chronic obstructive pulmonary disease exacerbation. Right lower lobe pneumonia, community acquired. Leukocytosis. Hypercapnic respiratory failure. Elevated lactic acid level. Hypertensive urgency at presentation. History of hypertension. - Treat with IV levaquin X 5 days empiricaly - discontinue IVF - continue daily SBT evaluation - continue daily SAT's - add seroquel for anxiolysis - otherwise titrate sedation for target RASS 0 to -1 - continue bronchodilators with pulmonary hygiene per RT - continue systemic steroid therapy - continue montelukast therapy - continue to wean oxygen for target O2 Sat's > 90% - VAP bundle addressed - continue empiric AB's and de-escalate based on clinical and microbiologic data - continue enteral nutrition as tolerated - mobility protocol for pressure ulcer prophylaxis - GI & VTE prophylaxis - glycemic control with SSI for target BG 140 - 180 mg/dL - continue other care per attending / other consultants ...... re-evaluate in am & prn ... care plan discussed with attending The high probability of a clinically significant, sudden or life threatening deterioration of the [Pulmonary,cardiac and Vascular] system(s) required my full and direct attention, intervention and personal management. The aggregate critical care time was [32] minutes. This time is in addition to time spent performing reported procedures but includes the following: [x] Data Review and interpretation [x] Patient assessment and monitoring of vital signs [x] Documentation Subjective Date of service: 07/18/18 Principal diagnosis: Ac on ch hypoxemic Resp failure; AE-COPD; RLL PNA (CAP); Hypercapnic Failur Interval history: Patient is seen today for: Acute on chronic hypoxemic respiratory failure; Acute chronic obstructive pulmonary disease exacerbation; Right lower lobe pneumonia, community acquired; Leukocytosis; Hypercapnic respiratory failure. Seen and examined at bedside; 24hour events reviewed; nursing and respiratory care staff consulted; no adverse overnight events reported to me; remains on MVS; still wheezing; denies acute chest pains or palpitations; No N/V/F/C; anxious Objective Vital Signs - 12hr 07/18/18 07/18/18 07/18/18 06:00 07:00 08:00 Temperature 97.4 F L Pulse Rate 55 L 51 L 48 L Pulse Rate [ Anterior Bilateral Throughout] Pulse Rate [ 55 L From Monitor] Respiratory 18 18 18 Rate Respiratory Rate [Anterior Bilateral Throughout] Blood Pressure 139/63 143/68 144/68 O2 Sat by Pulse 94 98 96 Oximetry 07/18/18 07/18/18 07/18/18 08:13 08:23 08:53 Temperature Pulse Rate 50 L 63 Pulse Rate [ 50 L 64 Anterior Bilateral Throughout] Pulse Rate [ From Monitor] Respiratory 19 Rate Respiratory 18 19 Rate [Anterior Bilateral Throughout] Blood Pressure 144/68 147/72 O2 Sat by Pulse 99 97 Oximetry 07/18/18 07/18/18 07/18/18 09:00 10:00 10:43 Temperature Pulse Rate 73 67 80 Pulse Rate [ Anterior Bilateral Throughout] Pulse Rate [ From Monitor] Respiratory 18 17 Rate Respiratory Rate [Anterior Bilateral Throughout] Blood Pressure 147/72 147/72 151/64 O2 Sat by Pulse 92 95 Oximetry 07/18/18 07/18/18 07/18/18 11:00 11:34 12:00 Temperature 98.2 F Pulse Rate 97 H 67 71 Pulse Rate [ Anterior Bilateral Throughout] Pulse Rate [ 103 H From Monitor] Respiratory 15 21 14 Rate Respiratory Rate [Anterior Bilateral Throughout] Blood Pressure 151/64 150/111 141/64 O2 Sat by Pulse 90 96 91 Oximetry 07/18/18 07/18/18 13:00 14:00 Temperature Pulse Rate 59 L 61 Pulse Rate [ Anterior Bilateral Throughout] Pulse Rate [ From Monitor] Respiratory 18 18 Rate Respiratory Rate [Anterior Bilateral Throughout] Blood Pressure 141/64 124/58 O2 Sat by Pulse 98 97 Oximetry Constitutional: appears uncomfortable, other (elderly thin looking AAF, normocephalic and atraumatic with increased resp effort) Eyes: non-icteric ENT: oropharynx moist, other (ETT 23 cm LILI) Neck: supple, no lymphadenopathy, no JVD, other (No thyromegaly) Effort: mildly labored Ascultation: Bilateral: diminished breath sounds, wheezes, rhonchi Percussion: Bilateral: not dull Cardiovascular: regular rate and rhythm Gastrointestinal: normoactive bowel sounds, soft, non-tender, non-distended Integumentary: rash Extremities: no cyanosis, no edema, pulses normal, no ischemia or petechiae Neurologic: normal mental status, non-focal exam, pupils equal and round, motor strength normal and Psychiatric: mood appropriate, anxious CBC and BMP: 07/17/18 03:11 07/17/18 03:11 ABG, PT/INR, D-dimer: ABG POC ABG pH 7.235 (7.35-7.45) L 07/18/18 11:22 POC ABG pCO2 75.6 (35-45) H 07/18/18 11:22 POC ABG pO2 67 (80-105) L 07/18/18 11:22 POC ABG HCO3 32.0 07/18/18 11:22 POC ABG Total CO2 34 07/18/18 11:22 POC ABG O2 Sat 88 07/18/18 11:22 PT/INR, D-dimer D-Dimer 498.74 ng/mlDDU (0-234) H 07/16/18 16:00 Abnormal lab findings: Abnormal Labs 07/15/18 07/15/18 07/15/18 19:55 19:55 20:04 WBC 14.3 H RBC Hgb 14.6 H Hct 44.9 H MCV 106 H MCH 34 H Seg Neuts % (Manual) 96.0 H Lymphocytes % (Manual) 3.0 L Seg Neutrophils # Man 13.7 H Lymphocytes # (Manual) 0.4 L D-Dimer POC ABG pH 7.105 L POC ABG pCO2 120.2 H POC ABG pO2 71 L Chloride Carbon Dioxide 36 H BUN Creatinine 0.6 L Glucose 172 H POC Glucose Lactic Acid Calcium C-Reactive Protein 07/15/18 07/15/18 07/15/18 20:46 21:18 22:05 WBC RBC Hgb Hct MCV MCH Seg Neuts % (Manual) Lymphocytes % (Manual) Seg Neutrophils # Man Lymphocytes # (Manual) D-Dimer POC ABG pH 7.305 L POC ABG pCO2 64.5 H POC ABG pO2 220 H Chloride Carbon Dioxide BUN Creatinine Glucose POC Glucose Lactic Acid 2.40 H* 3.40 H* Calcium C-Reactive Protein 07/15/18 07/16/18 07/16/18 23:27 07:50 16:00 WBC RBC Hgb Hct MCV MCH Seg Neuts % (Manual) Lymphocytes % (Manual) Seg Neutrophils # Man Lymphocytes # (Manual) D-Dimer 498.74 H POC ABG pH 7.328 L POC ABG pCO2 50.0 H POC ABG pO2 Chloride Carbon Dioxide BUN Creatinine Glucose POC Glucose Lactic Acid 3.60 H* Calcium C-Reactive Protein 07/16/18 07/17/18 07/17/18 16:00 03:11 03:11 WBC RBC 3.31 L Hgb Hct MCV 104 H MCH 34 H Seg Neuts % (Manual) Lymphocytes % (Manual) Seg Neutrophils # Man Lymphocytes # (Manual) D-Dimer POC ABG pH POC ABG pCO2 POC ABG pO2 Chloride 108.8 H Carbon Dioxide BUN 21 H Creatinine 0.5 L Glucose 132 H POC Glucose Lactic Acid Calcium 8.0 L C-Reactive Protein 1.60 H 07/17/18 07/18/18 07/18/18 04:00 04:34 05:57 WBC RBC Hgb Hct MCV MCH Seg Neuts % (Manual) Lymphocytes % (Manual) Seg Neutrophils # Man Lymphocytes # (Manual) D-Dimer POC ABG pH 7.280 L POC ABG pCO2 46.3 H 63.1 H POC ABG pO2 124 H Chloride Carbon Dioxide BUN Creatinine Glucose POC Glucose 114 H Lactic Acid Calcium C-Reactive Protein 07/18/18 11:22 WBC RBC Hgb Hct MCV MCH Seg Neuts % (Manual) Lymphocytes % (Manual) Seg Neutrophils # Man Lymphocytes # (Manual) D-Dimer POC ABG pH 7.235 L POC ABG pCO2 75.6 H POC ABG pO2 67 L Chloride Carbon Dioxide BUN Creatinine Glucose POC Glucose Lactic Acid Calcium C-Reactive Protein Chest x-ray: image reviewed (hyperinflation; no focal infiltrate) Allied health notes reviewed: nursing
--- NOTE | 2018-07-18 21:38 | XRay Report ---
FINAL REPORT PROCEDURE: XR CHEST 1V AP TECHNIQUE: Chest radiograph anteroposterior view. CPT 12138 HISTORY: COPD exacerbation; ETT position COMPARISON: 07/15/2018 FINDINGS: Heart: Normal. Mediastinum/Vessels: Normal. Lungs/Pleural space: Infiltrates appear improved. No effusion or pneumothorax. Bony thorax: No acute osseous abnormality. Life support devices: Endotracheal tube tip projects 6 centimeters superior to the nicolas. Nasogastri c tube is in the upper abdomen. IMPRESSION: Endotracheal tube tip projects 6 centimeters superior to the nicolas.
[2018-07-19] MEDS: SINGULAIR PO SCH ×2 (00:21→21:16)
[2018-07-19] MEDS: COREG PO SCH ×2 (00:21→10:12)
--- NOTE | 2018-07-19 03:00 | XRay Report ---
FINAL REPORT EXAM: XR CHEST 1V AP HISTORY: COPD exacerbation; ETT position TECHNIQUE: A portable upright view the chest was obtained and compared to the study 07/18/2018. FINDINGS: The tip of the ET tube is 5 cm above the nicolas. The NG tube is coursing well into the stomach. The h eart size is normal. The lungs reveal generalized mild interstitial prominence without localized infi ltrates. Pleural fluid is not seen. The skeletal structures are unchanged. IMPRESSION: Stable generalized mild interstitial prominence. No localized infiltrates or effusions. ET tube and NG tube as described.
[2018-07-19] MEDS: SOLU-Medrol IV SCH ×3 (05:33→21:15)
[2018-07-19] MEDS: PULMICORT IH SCH ×2 (07:46→20:24)
[2018-07-19] MEDS: BROVANA NEBU IH SCH ×2 (07:46→20:24)
[2018-07-19] MEDS: PREVACID SOLUTAB FEEDTUBE SCH (10:11)
[2018-07-19] MEDS: LEVAQUIN 750MG/150ML 750 MG/150 ML BAG IV SCH (10:12)
[2018-07-19] MEDS: HEPARIN SUB-Q SCH ×2 (10:12→21:16)
--- NOTE | 2018-07-19 12:51 | Progress Note ---
Assessment and Plan Acute on chronic hypoxemic respiratory failure. Acute chronic obstructive pulmonary disease exacerbation. Right lower lobe pneumonia, community acquired. Leukocytosis. Hypercapnic respiratory failure. Elevated lactic acid level. Hypertensive urgency at presentation. History of hypertension. - continue IV levaquin X 5 days for pneumonia - discontinued IVF - continue daily SBT's as tolerated - continue daily SAT's - added seroquel for anxiolysis - otherwise titrate sedation for target RASS 0 to -1 - continue bronchodilators with pulmonary hygiene per RT - continue systemic steroid therapy - add scheduled short acting bronchodilators - continue LABA & ICS - continue montelukast therapy - continue to wean oxygen for target O2 Sat's > 90% - VAP bundle addressed - continue empiric AB's and de-escalate based on clinical and microbiologic data - continue enteral nutrition as tolerated - mobility protocol for pressure ulcer prophylaxis - GI & VTE prophylaxis - glycemic control with SSI for target BG 140 - 180 mg/dL - continue other care per attending / other consultants ...... re-evaluate in am & prn ... care plan discussed with attending The high probability of a clinically significant, sudden or life threatening deterioration of the [Pulmonary,cardiac and Vascular] system(s) required my full and direct attention, intervention and personal management. The aggregate critical care time was [35] minutes. This time is in addition to time spent performing reported procedures but includes the following: [x] Data Review and interpretation [x] Patient assessment and monitoring of vital signs [x] Documentation Subjective Date of service: 07/19/18 Principal diagnosis: Ac on ch hypoxemic Resp failure; AE-COPD; RLL PNA (CAP); Hypercapnic Failur Interval history: Patient is seen today for: Acute on chronic hypoxemic respiratory failure; Acute chronic obstructive pulmonary disease exacerbation; Right lower lobe pneumonia, community acquired; Leukocytosis; Hypercapnic respiratory failure. Seen and examined at bedside; 24hour events reviewed; nursing and respiratory care staff consulted; no adverse overnight events reported to me; remains on MVS; still wheezing; tenuously tolerating PSV trial; denies acute chest pains or palpitations; remains anxious; No N/V/F/C Objective Vital Signs - 12hr 07/19/18 07/19/18 07/19/18 01:00 02:00 03:00 Temperature Pulse Rate 54 L 56 L 52 L Pulse Rate [ Anterior Bilateral Throughout] Pulse Rate [ From Monitor] Respiratory 18 18 18 Rate Respiratory Rate [Anterior Bilateral Throughout] Blood Pressure 155/71 154/71 162/73 O2 Sat by Pulse 92 92 93 Oximetry 07/19/18 07/19/18 07/19/18 03:42 04:00 05:00 Temperature 98.8 F Pulse Rate 48 L 63 Pulse Rate [ Anterior Bilateral Throughout] Pulse Rate [ 48 L From Monitor] Respiratory 18 13 Rate Respiratory Rate [Anterior Bilateral Throughout] Blood Pressure 162/73 159/72 O2 Sat by Pulse 99 98 Oximetry 07/19/18 07/19/18 07/19/18 05:37 06:00 07:00 Temperature Pulse Rate 50 L 46 L 45 L Pulse Rate [ Anterior Bilateral Throughout] Pulse Rate [ From Monitor] Respiratory 22 22 Rate Respiratory Rate [Anterior Bilateral Throughout] Blood Pressure 164/80 149/74 O2 Sat by Pulse 99 99 98 Oximetry 07/19/18 07/19/18 07/19/18 07:42 07:46 08:00 Temperature 97.5 F L Pulse Rate 47 L 48 L Pulse Rate [ 52 L Anterior Bilateral Throughout] Pulse Rate [ 47 L From Monitor] Respiratory 22 Rate Respiratory 22 Rate [Anterior Bilateral Throughout] Blood Pressure 159/75 168/78 O2 Sat by Pulse 98 98 Oximetry 07/19/18 07/19/18 07/19/18 08:30 09:00 10:00 Temperature Pulse Rate 45 L 47 L Pulse Rate [ 48 L Anterior Bilateral Throughout] Pulse Rate [ From Monitor] Respiratory 21 22 Rate Respiratory 22 Rate [Anterior Bilateral Throughout] Blood Pressure 165/75 166/74 O2 Sat by Pulse 98 97 Oximetry 07/19/18 07/19/18 07/19/18 10:12 11:00 12:00 Temperature 97.2 F L Pulse Rate 45 L 48 L 50 L Pulse Rate [ Anterior Bilateral Throughout] Pulse Rate [ 53 L From Monitor] Respiratory 22 22 Rate Respiratory Rate [Anterior Bilateral Throughout] Blood Pressure 168/77 168/77 168/77 O2 Sat by Pulse 98 98 Oximetry 07/19/18 12:25 Temperature Pulse Rate 76 Pulse Rate [ Anterior Bilateral Throughout] Pulse Rate [ From Monitor] Respiratory 20 Rate Respiratory Rate [Anterior Bilateral Throughout] Blood Pressure 173/76 O2 Sat by Pulse 93 Oximetry Constitutional: appears uncomfortable, other (elderly thin looking AAF, normocephalic and atraumatic with increased resp effort) Eyes: non-icteric ENT: oropharynx moist, other (ETT 23 cm LILI) Neck: supple, no lymphadenopathy, no JVD, other (No thyromegaly) Effort: mildly labored Ascultation: Bilateral: diminished breath sounds, wheezes (expiratory), rhonchi Percussion: Bilateral: not dull Cardiovascular: regular rate and rhythm Gastrointestinal: normoactive bowel sounds, soft, non-tender, non-distended Integumentary: rash Extremities: no cyanosis, no edema, pulses normal, no ischemia or petechiae Neurologic: normal mental status, non-focal exam, pupils equal and round, motor strength normal and Psychiatric: mood appropriate, anxious CBC and BMP: 07/17/18 03:11 07/17/18 03:11 ABG, PT/INR, D-dimer: ABG POC ABG pH 7.329 (7.35-7.45) L 07/19/18 05:34 POC ABG pCO2 64.7 (35-45) H 07/19/18 05:34 POC ABG pO2 90 (80-105) 07/19/18 05:34 POC ABG HCO3 34.0 07/19/18 05:34 POC ABG Total CO2 36 07/19/18 05:34 POC ABG O2 Sat 96 07/19/18 05:34 PT/INR, D-dimer D-Dimer 498.74 ng/mlDDU (0-234) H 07/16/18 16:00 Abnormal lab findings: Abnormal Labs 07/15/18 07/15/18 07/15/18 19:55 19:55 20:04 WBC 14.3 H RBC Hgb 14.6 H Hct 44.9 H MCV 106 H MCH 34 H Seg Neuts % (Manual) 96.0 H Lymphocytes % (Manual) 3.0 L Seg Neutrophils # Man 13.7 H Lymphocytes # (Manual) 0.4 L D-Dimer POC ABG pH 7.105 L POC ABG pCO2 120.2 H POC ABG pO2 71 L Chloride Carbon Dioxide 36 H BUN Creatinine 0.6 L Glucose 172 H POC Glucose Lactic Acid Calcium C-Reactive Protein 07/15/18 07/15/18 07/15/18 20:46 21:18 22:05 WBC RBC Hgb Hct MCV MCH Seg Neuts % (Manual) Lymphocytes % (Manual) Seg Neutrophils # Man Lymphocytes # (Manual) D-Dimer POC ABG pH 7.305 L POC ABG pCO2 64.5 H POC ABG pO2 220 H Chloride Carbon Dioxide BUN Creatinine Glucose POC Glucose Lactic Acid 2.40 H* 3.40 H* Calcium C-Reactive Protein 07/15/18 07/16/18 07/16/18 23:27 07:50 16:00 WBC RBC Hgb Hct MCV MCH Seg Neuts % (Manual) Lymphocytes % (Manual) Seg Neutrophils # Man Lymphocytes # (Manual) D-Dimer 498.74 H POC ABG pH 7.328 L POC ABG pCO2 50.0 H POC ABG pO2 Chloride Carbon Dioxide BUN Creatinine Glucose POC Glucose Lactic Acid 3.60 H* Calcium C-Reactive Protein 07/16/18 07/17/18 07/17/18 16:00 03:11 03:11 WBC RBC 3.31 L Hgb Hct MCV 104 H MCH 34 H Seg Neuts % (Manual) Lymphocytes % (Manual) Seg Neutrophils # Man Lymphocytes # (Manual) D-Dimer POC ABG pH POC ABG pCO2 POC ABG pO2 Chloride 108.8 H Carbon Dioxide BUN 21 H Creatinine 0.5 L Glucose 132 H POC Glucose Lactic Acid Calcium 8.0 L C-Reactive Protein 1.60 H 07/17/18 07/18/18 07/18/18 04:00 04:34 05:57 WBC RBC Hgb Hct MCV MCH Seg Neuts % (Manual) Lymphocytes % (Manual) Seg Neutrophils # Man Lymphocytes # (Manual) D-Dimer POC ABG pH 7.280 L POC ABG pCO2 46.3 H 63.1 H POC ABG pO2 124 H Chloride Carbon Dioxide BUN Creatinine Glucose POC Glucose 114 H Lactic Acid Calcium C-Reactive Protein 07/18/18 07/18/18 07/19/18 11:22 18:03 05:34 WBC RBC Hgb Hct MCV MCH Seg Neuts % (Manual) Lymphocytes % (Manual) Seg Neutrophils # Man Lymphocytes # (Manual) D-Dimer POC ABG pH 7.235 L 7.251 L 7.329 L POC ABG pCO2 75.6 H 76.3 H 64.7 H POC ABG pO2 67 L Chloride Carbon Dioxide BUN Creatinine Glucose POC Glucose Lactic Acid Calcium C-Reactive Protein Chest x-ray: image reviewed (chronic looking increased interstitial markings) Allied health notes reviewed: nursing
[2018-07-19] MEDS: APRESOLINE PO SCH ×2 (14:06→23:56)
[2018-07-19] MEDS: SUBLIMAZE IV PRN (16:33)
--- NOTE | 2018-07-19 17:28 | Progress Note ---
Assessment and Plan Assessment and plan: Patient is a 63-year-old female with known history of hypertension, asthma, COPD, previously intubated in the past admitted with shortness of breath and presumed sepsis although etiology not known at this time. Pateint was intubated for hypercarpenia and continues at this time. Acute respiratory failure with hypercarpenia SIRS Diabetes mellitus Lactic acidosis COPD with Exacerbation GERD Moderate to Severe Protein calorie Malnutrition Plan: Continue supportive care with ICU care Continue Abx For Empiric coverage Adjust insulin Patient recently on Steriods which could explain the leukocytosis. Pulmonary Management per Finance Business Manager Start Tube feed DVT/GI prophy The high probability of a clinically significant, sudden or life threatening deterioration of the [pulmonary] system(s) required my full and direct attention, intervention and personal management. The aggregate critical care time was [35] minutes. This time is in addition to time spent performing reported procedures but includes the following: [x] Data Review and interpretation [x] Patient assessment and monitoring of vital signs [x] Documentation [x] Medication orders and management History Interval history: Patient was seen and evaluated this morning, patient was intubated and on MV. Patient was alert. Hospitalist Physical - Physical exam Narrative exam: patient is intubated The patient appeared well nourished and normally developed. Vital signs as documented. Head exam is unremarkable. No scleral icterus . Neck is without jugular venous distension, thyromegaly, or carotid bruits. Lungs are clear to auscultation. Cardiac exam reveals regular rate and Rhythm. Abdominal exam reveals normal bowel sounds. Extremities are nonedematous and both femoral and pedal pulses are normal. ASSOCIATE SALES: Alert . - Constitutional Vitals: Temp Pulse Resp BP Pulse Ox 97.2 F L 66 22 161/80 96 07/19/18 12:00 07/19/18 17:00 07/19/18 17:00 07/19/18 17:00 07/19/18 17:00 Results - Labs CBC & Chem 7: 07/17/18 03:11 07/17/18 03:11 Labs: Laboratory Last Values WBC 7.1 K/mm3 (4.5-11.0) 07/17/18 03:11 RBC 3.31 M/mm3 (3.65-5.03) L 07/17/18 03:11 Hgb 11.2 gm/dl (10.1-14.3) D 07/17/18 03:11 Hct 34.5 % (30.3-42.9) D 07/17/18 03:11 MCV 104 fl (79-97) H 07/17/18 03:11 MCH 34 pg (28-32) H 07/17/18 03:11 MCHC 32 % (30-34) 07/17/18 03:11 RDW 14.1 % (13.2-15.2) 07/17/18 03:11 Plt Count 250 K/mm3 (140-440) 07/17/18 03:11 Add Manual Diff Complete 07/15/18 19:55 Total Counted 100 07/15/18 19:55 Seg Neutrophils % [place] 07/15/18 19:55 Seg Neuts % (Manual) 96.0 % (40.0-70.0) H 07/15/18 19:55 Band Neutrophils % 0 % 07/15/18 19:55 Lymphocytes % (Manual) 3.0 % (13.4-35.0) L 07/15/18 19:55 Reactive Lymphs % (Man) 0 % 07/15/18 19:55 Monocytes % (Manual) 1.0 % (0.0-7.3) 07/15/18 19:55 Eosinophils % (Manual) 0 % (0.0-4.3) 07/15/18 19:55 Basophils % (Manual) 0 % (0.0-1.8) 07/15/18 19:55 Metamyelocytes % 0 % 07/15/18 19:55 Myelocytes % 0 % 07/15/18 19:55 Promyelocytes % 0 % 07/15/18 19:55 Blast Cells % 0 % 07/15/18 19:55 Nucleated RBC % Not Reportable 07/15/18 19:55 Seg Neutrophils # Man 13.7 K/mm3 (1.8-7.7) H 07/15/18 19:55 Band Neutrophils # 0.0 K/mm3 07/15/18 19:55 Lymphocytes # (Manual) 0.4 K/mm3 (1.2-5.4) L 07/15/18 19:55 Abs React Lymphs (Man) 0.0 K/mm3 07/15/18 19:55 Monocytes # (Manual) 0.1 K/mm3 (0.0-0.8) 07/15/18 19:55 Eosinophils # (Manual) 0.0 K/mm3 (0.0-0.4) 07/15/18 19:55 Basophils # (Manual) 0.0 K/mm3 (0.0-0.1) 07/15/18 19:55 Metamyelocytes # 0.0 K/mm3 07/15/18 19:55 Myelocytes # 0.0 K/mm3 07/15/18 19:55 Promyelocytes # 0.0 K/mm3 07/15/18 19:55 Blast Cells # 0.0 K/mm3 07/15/18 19:55 WBC Morphology Not Reportable 07/15/18 19:55 Hypersegmented Neuts Not Reportable 07/15/18 19:55 Hyposegmented Neuts Not Reportable 07/15/18 19:55 Hypogranular Neuts Not Reportable 07/15/18 19:55 Smudge Cells Not Reportable 07/15/18 19:55 Toxic Granulation Not Reportable 07/15/18 19:55 Toxic Vacuolation Not Reportable 07/15/18 19:55 Dohle Bodies Not Reportable 07/15/18 19:55 Pelger-Huet Anomaly Not Reportable 07/15/18 19:55 Lindsay Rods Not Reportable 07/15/18 19:55 Platelet Estimate Appears normal 07/15/18 19:55 Clumped Platelets Not Reportable 07/15/18 19:55 Plt Clumps, EDTA Not Reportable 07/15/18 19:55 Large Platelets Not Reportable 07/15/18 19:55 Giant Platelets Not Reportable 07/15/18 19:55 Platelet Satelliting Not Reportable 07/15/18 19:55 Plt Morphology Comment Not Reportable 07/15/18 19:55 RBC Morphology Not Reportable 07/15/18 19:55 Dimorphic RBCs Not Reportable 07/15/18 19:55 Polychromasia Not Reportable 07/15/18 19:55 Hypochromasia Not Reportable 07/15/18 19:55 Poikilocytosis Few 07/15/18 19:55 Anisocytosis 1+ 07/15/18 19:55 Microcytosis Not Reportable 07/15/18 19:55 Macrocytosis Not Reportable 07/15/18 19:55 Spherocytes Not Reportable 07/15/18 19:55 Pappenheimer Bodies Not Reportable 07/15/18 19:55 Sickle Cells Not Reportable 07/15/18 19:55 Target Cells Not Reportable 07/15/18 19:55 Tear Drop Cells Not Reportable 07/15/18 19:55 Ovalocytes Not Reportable 07/15/18 19:55 Helmet Cells Not Reportable 07/15/18 19:55 [place] Bodies Not Reportable 07/15/18 19:55 Humphreys Rings Not Reportable 07/15/18 19:55 [place] Cells Not Reportable 07/15/18 19:55 Bite Cells Not Reportable 07/15/18 19:55 Crenated Cell Not Reportable 07/15/18 19:55 Elliptocytes Not Reportable 07/15/18 19:55 Acanthocytes (Spur) Not Reportable 07/15/18 19:55 Rouleaux Not Reportable 07/15/18 19:55 Hemoglobin C Crystals Not Reportable 07/15/18 19:55 Schistocytes Rare 07/15/18 19:55 Malaria parasites Not Reportable 07/15/18 19:55 [place] Bodies Not Reportable 07/15/18 19:55 Hem Pathologist Commnt No 07/15/18 19:55 D-Dimer 498.74 ng/mlDDU (0-234) H 07/16/18 16:00 POC ABG pH 7.336 (7.35-7.45) L 07/19/18 16:58 POC ABG pCO2 72.2 (35-45) H 07/19/18 16:58 POC ABG pO2 75 (80-105) L 07/19/18 16:58 POC ABG HCO3 38.6 07/19/18 16:58 POC ABG Total CO2 41 07/19/18 16:58 POC ABG O2 Sat 93 07/19/18 16:58 POC ABG Base Excess 13 07/19/18 16:58 FiO2 30 % 07/19/18 16:58 Sodium 140 mmol/L (137-145) 07/17/18 03:11 Potassium 4.4 mmol/L (3.6-5.0) 07/17/18 03:11 Chloride 108.8 mmol/L (98-107) H 07/17/18 03:11 Carbon Dioxide 27 mmol/L (22-30) D 07/17/18 03:11 Anion Gap 9 mmol/L 07/17/18 03:11 BUN 21 mg/dL (7-17) H 07/17/18 03:11 Creatinine 0.5 mg/dL (0.7-1.2) L 07/17/18 03:11 Estimated GFR > 60 ml/min 07/17/18 03:11 BUN/Creatinine Ratio 42 % 07/17/18 03:11 Glucose 132 mg/dL (65-100) H 07/17/18 03:11 POC Glucose 114 (70-105) H 07/18/18 05:57 Lactic Acid 1.20 mmol/L (0.7-2.0) 07/16/18 16:00 Calcium 8.0 mg/dL (8.4-10.2) L 07/17/18 03:11 C-Reactive Protein 1.60 mg/dL (0.00-1.30) H 07/16/18 16:00 Urine Color Yellow (Yellow) 07/16/18 05:45 Urine Turbidity Clear (Clear) 07/16/18 05:45 Urine pH 6.0 (5.0-7.0) 07/16/18 05:45 Ur Specific [place] 1.021 (1.003-1.030) 07/16/18 05:45 Urine Protein <15 mg/dl mg/dL (Negative) 07/16/18 05:45 Urine Glucose (UA) Neg mg/dL (Negative) 07/16/18 05:45 Urine Ketones Neg mg/dL (Negative) 07/16/18 05:45 Urine Blood Sm (Negative) 07/16/18 05:45 Urine Nitrite Neg (Negative) 07/16/18 05:45 Urine Bilirubin Neg (Negative) 07/16/18 05:45 Urine Urobilinogen < 2.0 mg/dL (<2.0) 07/16/18 05:45 Ur Leukocyte Esterase Neg (Negative) 07/16/18 05:45 Urine WBC (Auto) 3.0 /HPF (0.0-6.0) 07/16/18 05:45 Urine RBC (Auto) 13.0 /HPF (0.0-6.0) 07/16/18 05:45 Hyaline Casts 1 /LPF 07/16/18 05:45 Waxy Casts 9 /LPF 07/16/18 05:45 Urine Mucus Few /HPF 07/16/18 05:45 Nutrition/Malnutrition Assess - Dietary Evaluation Nutrition/Malnutrition Findings: Nutrition Notes Start: 07/16/18 15:21 Freq: Status: Active Protocol: Document 07/19/18 15:33 JARED (Rec: 07/19/18 15:39 RUDYDIOR [id number]) Nutrition Notes Initial or Follow up Reassessment Current Diagnosis COPD Diabetes Hypertension Respiratory Failure Current Diet TF - Vital AF 1.2 at 50ml/hr Labs/Tests No current available Pertinent Medications Reviewed Height 5 ft 5 in Weight 63.1 kg Alloy Body Weight (kg) 56.81 BMI 23.1 Weight change and time frame Current wt obtained from bed scale Weight Status Appropriate Subjective/Other Information Pt tolerating TF at goal rate. She remains on vent support. Percent of energy/protein needs met: 100% energy and pro Burn Absent Trauma Absent #1 Nutrition Diagnosis Inadequate oral intake Diagnosis Progress(for reassessment Continues documentation) Is patient on ventilator? Yes Is Patient Ambulatory and/or Out of Bed No REE-([place]-St. Jeor-confined to bed) [phone] Calculation Used for Recommendations [place] or Additional Notes Pro needs 1.2-2g/k-126g/ day Fluid needs 1ml/kcal Nutrition Intervention Nutrition Support: Continue Vital AF 1.2 at 50ml/ hr with 100ml water flush q4h. Kcal 1,440 Protein (gm) 90 Carbohydrates (gm) 133 Fluid (mL) 973 Goal #1 TF tolerance Goal #2 TF to meet 90-100% energy and pro needs Anticipated Discharge Needs: Continue low-CHO TF formula if unable to advance diet Follow-Up By: 07/26/18 Additional Comments F/U: stable TF, wt, vent status
[2018-07-19] MEDS: DUONEB *Not for PRN Use IH SCH (20:24)
--- NOTE | 2018-07-20 03:25 | XRay Report ---
FINAL REPORT PROCEDURE: XR CHEST 1V AP TECHNIQUE: Chest radiograph anteroposterior view. CPT 42025 HISTORY: COPD exacerbation; ETT position COMPARISON: 07/19/2018 FINDINGS: Heart: Normal. Mediastinum/Vessels: Normal. Lungs/Pleural space: Normal. Bony thorax: No acute osseous abnormality. Life support devices: The endotracheal tube ends 4 centimeters above the nicolas. A nasogastric tube e nds below the hemidiaphragms. IMPRESSION: No evidence of acute infiltrate or effusion. The endotracheal tube and nasogastric tube are properly positioned..
[2018-07-20] MEDS: DUONEB *Not for PRN Use IH SCH ×4 (04:31→20:44)
[2018-07-20] MEDS: SOLU-Medrol IV SCH ×2 (04:59→21:21)
[2018-07-20] MEDS: SUBLIMAZE IV PRN ×2 (04:59→09:43)
[2018-07-20] MEDS: APRESOLINE PO SCH ×3 (05:05→21:20)
[2018-07-20] MEDS: BROVANA NEBU IH SCH ×2 (08:16→20:44)
[2018-07-20] MEDS: PULMICORT IH SCH ×2 (08:16→20:44)
[2018-07-20] MEDS: HEPARIN SUB-Q SCH ×2 (09:43→21:22)
[2018-07-20] MEDS: NORVASC PO SCH (09:44)
[2018-07-20] MEDS: PREVACID SOLUTAB FEEDTUBE SCH (09:44)
--- NOTE | 2018-07-20 13:02 | Progress Note ---
<ORJIOKE,ANA A - Last Filed: 07/21/18 11:36> Objective Vital Signs - 12hr 07/21/18 07/21/18 07/21/18 00:00 01:00 02:00 Temperature 98.0 F Pulse Rate 94 H 68 59 L Pulse Rate [ Anterior Bilateral Throughout] Pulse Rate [ 103 H From Monitor] Respiratory 25 H 22 22 Rate Respiratory Rate [Anterior Bilateral Throughout] Blood Pressure 141/68 144/66 136/56 O2 Sat by Pulse 94 94 93 Oximetry 07/21/18 07/21/18 07/21/18 02:15 02:37 03:00 Temperature Pulse Rate 58 L Pulse Rate [ 56 L 67 Anterior Bilateral Throughout] Pulse Rate [ From Monitor] Respiratory 19 Rate Respiratory 22 17 Rate [Anterior Bilateral Throughout] Blood Pressure 134/58 O2 Sat by Pulse 94 Oximetry 07/21/18 07/21/18 07/21/18 04:00 04:41 04:43 Temperature 98.7 F Pulse Rate 54 L 52 L Pulse Rate [ Anterior Bilateral Throughout] Pulse Rate [ 53 L From Monitor] Respiratory 20 18 18 Rate Respiratory Rate [Anterior Bilateral Throughout] Blood Pressure 130/62 135/66 O2 Sat by Pulse 95 99 100 Oximetry 07/21/18 07/21/18 07/21/18 05:00 05:13 06:00 Temperature Pulse Rate 50 L 48 L 56 L Pulse Rate [ Anterior Bilateral Throughout] Pulse Rate [ From Monitor] Respiratory 20 17 Rate Respiratory Rate [Anterior Bilateral Throughout] Blood Pressure 133/62 133/62 134/59 O2 Sat by Pulse 95 96 Oximetry 07/21/18 07/21/18 07/21/18 07:00 08:00 08:18 Temperature 98.3 F Pulse Rate 55 L 70 Pulse Rate [ Anterior Bilateral Throughout] Pulse Rate [ 88 From Monitor] Respiratory 19 21 Rate Respiratory Rate [Anterior Bilateral Throughout] Blood Pressure 135/60 131/60 O2 Sat by Pulse 95 93 Oximetry 07/21/18 07/21/18 07/21/18 09:01 09:07 09:28 Temperature Pulse Rate 89 Pulse Rate [ 76 76 Anterior Bilateral Throughout] Pulse Rate [ From Monitor] Respiratory 25 H Rate Respiratory 18 20 Rate [Anterior Bilateral Throughout] Blood Pressure 110/87 O2 Sat by Pulse 94 95 Oximetry 07/21/18 07/21/18 09:54 10:00 Temperature Pulse Rate 80 80 Pulse Rate [ Anterior Bilateral Throughout] Pulse Rate [ From Monitor] Respiratory 17 Rate Respiratory Rate [Anterior Bilateral Throughout] Blood Pressure 138/55 139/51 O2 Sat by Pulse 93 Oximetry CBC and BMP: 07/17/18 03:11 07/17/18 03:11 ABG, PT/INR, D-dimer: ABG POC ABG pH 7.388 (7.35-7.45) 07/20/18 11:28 POC ABG pCO2 71.2 (35-45) H 07/20/18 11:28 POC ABG pO2 77 (80-105) L 07/20/18 11:28 POC ABG HCO3 43.0 07/20/18 11:28 POC ABG Total CO2 45 07/20/18 11:28 POC ABG O2 Sat 94 07/20/18 11:28 PT/INR, D-dimer D-Dimer 498.74 ng/mlDDU (0-234) H 07/16/18 16:00 Abnormal lab findings: Abnormal Labs 07/15/18 07/15/18 07/15/18 19:55 19:55 20:04 WBC 14.3 H RBC Hgb 14.6 H Hct 44.9 H MCV 106 H MCH 34 H Seg Neuts % (Manual) 96.0 H Lymphocytes % (Manual) 3.0 L Seg Neutrophils # Man 13.7 H Lymphocytes # (Manual) 0.4 L D-Dimer POC ABG pH 7.105 L POC ABG pCO2 120.2 H POC ABG pO2 71 L Chloride Carbon Dioxide 36 H BUN Creatinine 0.6 L Glucose 172 H POC Glucose Lactic Acid Calcium C-Reactive Protein 07/15/18 07/15/18 07/15/18 20:46 21:18 22:05 WBC RBC Hgb Hct MCV MCH Seg Neuts % (Manual) Lymphocytes % (Manual) Seg Neutrophils # Man Lymphocytes # (Manual) D-Dimer POC ABG pH 7.305 L POC ABG pCO2 64.5 H POC ABG pO2 220 H Chloride Carbon Dioxide BUN Creatinine Glucose POC Glucose Lactic Acid 2.40 H* 3.40 H* Calcium C-Reactive Protein 07/15/18 07/16/18 07/16/18 23:27 07:50 16:00 WBC RBC Hgb Hct MCV MCH Seg Neuts % (Manual) Lymphocytes % (Manual) Seg Neutrophils # Man Lymphocytes # (Manual) D-Dimer 498.74 H POC ABG pH 7.328 L POC ABG pCO2 50.0 H POC ABG pO2 Chloride Carbon Dioxide BUN Creatinine Glucose POC Glucose Lactic Acid 3.60 H* Calcium C-Reactive Protein 07/16/18 07/17/18 07/17/18 16:00 03:11 03:11 WBC RBC 3.31 L Hgb Hct MCV 104 H MCH 34 H Seg Neuts % (Manual) Lymphocytes % (Manual) Seg Neutrophils # Man Lymphocytes # (Manual) D-Dimer POC ABG pH POC ABG pCO2 POC ABG pO2 Chloride 108.8 H Carbon Dioxide BUN 21 H Creatinine 0.5 L Glucose 132 H POC Glucose Lactic Acid Calcium 8.0 L C-Reactive Protein 1.60 H 07/17/18 07/18/18 07/18/18 04:00 04:34 05:57 WBC RBC Hgb Hct MCV MCH Seg Neuts % (Manual) Lymphocytes % (Manual) Seg Neutrophils # Man Lymphocytes # (Manual) D-Dimer POC ABG pH 7.280 L POC ABG pCO2 46.3 H 63.1 H POC ABG pO2 124 H Chloride Carbon Dioxide BUN Creatinine Glucose POC Glucose 114 H Lactic Acid Calcium C-Reactive Protein 07/18/18 07/18/18 07/19/18 11:22 18:03 05:34 WBC RBC Hgb Hct MCV MCH Seg Neuts % (Manual) Lymphocytes % (Manual) Seg Neutrophils # Man Lymphocytes # (Manual) D-Dimer POC ABG pH 7.235 L 7.251 L 7.329 L POC ABG pCO2 75.6 H 76.3 H 64.7 H POC ABG pO2 67 L Chloride Carbon Dioxide BUN Creatinine Glucose POC Glucose Lactic Acid Calcium C-Reactive Protein 07/19/18 07/20/18 16:58 11:28 WBC RBC Hgb Hct MCV MCH Seg Neuts % (Manual) Lymphocytes % (Manual) Seg Neutrophils # Man Lymphocytes # (Manual) D-Dimer POC ABG pH 7.336 L POC ABG pCO2 72.2 H 71.2 H POC ABG pO2 75 L 77 L Chloride Carbon Dioxide BUN Creatinine Glucose POC Glucose Lactic Acid Calcium C-Reactive Protein <HERBIE EPPS J - Last Filed: 07/27/18 21:17> Assessment and Plan Acute on chronic hypoxemic respiratory failure. Acute chronic obstructive pulmonary disease exacerbation. Right lower lobe pneumonia, community acquired. Leukocytosis. Hypercapnic respiratory failure. Elevated lactic acid level. Hypertensive urgency at presentation. History of hypertension. - extubate - BIPAP prn post extubations - complete levaquin X 5 days for pneumonia - discontinued IVF - continue seroquel for anxiolysis - continue bronchodilators with pulmonary hygiene per RT - continue systemic steroid therapy - continue scheduled short acting bronchodilators - continue LABA & ICS - continue montelukast therapy - continue to wean oxygen for target O2 Sat's > 90% - VAP bundle addressed - continue empiric AB's and de-escalate based on clinical and microbiologic data - continue enteral nutrition as tolerated - mobility protocol for pressure ulcer prophylaxis - GI & VTE prophylaxis - glycemic control with SSI for target BG 140 - 180 mg/dL - continue other care per attending / other consultants ...... re-evaluate in am & prn ... care plan discussed with attending The high probability of a clinically significant, sudden or life threatening deterioration of the [Pulmonary,cardiac and Vascular] system(s) required my full and direct attention, intervention and personal management. The aggregate critical care time was [32] minutes. This time is in addition to time spent performing reported procedures but includes the following: [x] Data Review and interpretation [x] Patient assessment and monitoring of vital signs [x] Documentation Subjective Date of service: 07/20/18 Principal diagnosis: Ac on ch hypoxemic Resp failure; AE-COPD; RLL PNA (CAP); Hypercapnic Failur Interval history: Patient is seen today for: Acute on chronic hypoxemic respiratory failure; Acute chronic obstructive pulmonary disease exacerbation; Right lower lobe pneumonia, community acquired; Leukocytosis; Hypercapnic respiratory failure. Seen and examined at bedside; 24hour events reviewed; nursing and respiratory care staff consulted; no adverse overnight events reported to me; remains on MVS; tolerating SBT much better today; denies acute chest pains or palpitations Objective Vital Signs - 12hr 07/20/18 07/20/18 07/20/18 02:00 03:00 04:00 Temperature 96.5 F L Pulse Rate 45 L 51 L 57 L Pulse Rate [ 86 Anterior Bilateral Throughout] Pulse Rate [ From Monitor] Respiratory 22 19 16 Rate Respiratory 20 Rate [Anterior Bilateral Throughout] Blood Pressure 160/70 163/67 163/67 O2 Sat by Pulse 99 99 99 Oximetry 07/20/18 07/20/18 07/20/18 05:00 05:05 06:00 Temperature Pulse Rate 53 L 89 46 L Pulse Rate [ Anterior Bilateral Throughout] Pulse Rate [ From Monitor] Respiratory 22 22 Rate Respiratory Rate [Anterior Bilateral Throughout] Blood Pressure 148/62 181/88 156/69 O2 Sat by Pulse 94 97 Oximetry 07/20/18 07/20/18 07/20/18 07:00 08:00 08:08 Temperature Pulse Rate 43 L 60 85 Pulse Rate [ Anterior Bilateral Throughout] Pulse Rate [ 70 From Monitor] Respiratory 22 22 Rate Respiratory Rate [Anterior Bilateral Throughout] Blood Pressure 163/97 172/75 177/80 O2 Sat by Pulse 97 97 100 Oximetry 07/20/18 07/20/18 07/20/18 08:12 08:16 08:54 Temperature 97.9 F Pulse Rate 67 Pulse Rate [ 82 Anterior Bilateral Throughout] Pulse Rate [ From Monitor] Respiratory 12 Rate Respiratory 20 Rate [Anterior Bilateral Throughout] Blood Pressure 177/80 O2 Sat by Pulse 98 Oximetry 07/20/18 07/20/18 07/20/18 09:00 09:44 10:00 Temperature Pulse Rate 87 72 74 Pulse Rate [ Anterior Bilateral Throughout] Pulse Rate [ From Monitor] Respiratory 17 20 Rate Respiratory Rate [Anterior Bilateral Throughout] Blood Pressure 176/78 165/71 165/71 O2 Sat by Pulse 95 95 Oximetry 07/20/18 07/20/18 07/20/18 11:00 11:25 12:00 Temperature Pulse Rate 94 H 73 57 L Pulse Rate [ Anterior Bilateral Throughout] Pulse Rate [ 60 From Monitor] Respiratory 23 24 22 Rate Respiratory Rate [Anterior Bilateral Throughout] Blood Pressure 144/65 156/70 152/66 O2 Sat by Pulse 95 95 96 Oximetry 07/20/18 07/20/18 12:24 12:51 Temperature 97.9 F Pulse Rate Pulse Rate [ Anterior Bilateral Throughout] Pulse Rate [ From Monitor] Respiratory Rate Respiratory Rate [Anterior Bilateral Throughout] Blood Pressure O2 Sat by Pulse 97 Oximetry Constitutional: appears uncomfortable, other (elderly thin looking AAF, normocephalic and atraumatic with increased resp effort) Eyes: non-icteric ENT: oropharynx moist, other (ETT 23 cm LILI) Neck: supple, no lymphadenopathy, no JVD, other (No thyromegaly) Effort: mildly labored Ascultation: Bilateral: diminished breath sounds, rhonchi Percussion: Bilateral: not dull Cardiovascular: regular rate and rhythm Gastrointestinal: normoactive bowel sounds, soft, non-tender, non-distended Integumentary: rash Extremities: no cyanosis, no edema, pulses normal, no ischemia or petechiae Neurologic: normal mental status, non-focal exam, pupils equal and round, motor strength normal and Psychiatric: mood appropriate, anxious CBC and BMP: 07/26/18 05:02 07/26/18 05:02 ABG, PT/INR, D-dimer: ABG POC ABG pH 7.388 (7.35-7.45) 07/20/18 11:28 POC ABG pCO2 71.2 (35-45) H 07/20/18 11:28 POC ABG pO2 77 (80-105) L 07/20/18 11:28 POC ABG HCO3 43.0 07/20/18 11:28 POC ABG Total CO2 45 07/20/18 11:28 POC ABG O2 Sat 94 07/20/18 11:28 PT/INR, D-dimer D-Dimer 498.74 ng/mlDDU (0-234) H 07/16/18 16:00 Abnormal lab findings: Abnormal Labs 07/15/18 07/15/18 07/15/18 19:55 19:55 20:04 WBC 14.3 H RBC Hgb 14.6 H Hct 44.9 H MCV 106 H MCH 34 H Seg Neuts % (Manual) 96.0 H Lymphocytes % (Manual) 3.0 L Seg Neutrophils # Man 13.7 H Lymphocytes # (Manual) 0.4 L D-Dimer POC ABG pH 7.105 L POC ABG pCO2 120.2 H POC ABG pO2 71 L Chloride Carbon Dioxide 36 H BUN Creatinine 0.6 L Glucose 172 H POC Glucose Lactic Acid Calcium C-Reactive Protein 07/15/18 07/15/18 07/15/18 20:46 21:18 22:05 WBC RBC Hgb Hct MCV MCH Seg Neuts % (Manual) Lymphocytes % (Manual) Seg Neutrophils # Man Lymphocytes # (Manual) D-Dimer POC ABG pH 7.305 L POC ABG pCO2 64.5 H POC ABG pO2 220 H Chloride Carbon Dioxide BUN Creatinine Glucose POC Glucose Lactic Acid 2.40 H* 3.40 H* Calcium C-Reactive Protein 01/25/19 01/26/19 01/26/19 23:27 07:50 16:00 WBC RBC Hgb Hct MCV MCH Seg Neuts % (Manual) Lymphocytes % (Manual) Seg Neutrophils # Man Lymphocytes # (Manual) D-Dimer 498.74 H POC ABG pH 7.328 L POC ABG pCO2 50.0 H POC ABG pO2 Chloride Carbon Dioxide BUN Creatinine Glucose POC Glucose Lactic Acid 3.60 H* Calcium C-Reactive Protein 07/16/18 07/17/18 07/17/18 16:00 03:11 03:11 WBC RBC 3.31 L Hgb Hct MCV 104 H MCH 34 H Seg Neuts % (Manual) Lymphocytes % (Manual) Seg Neutrophils # Man Lymphocytes # (Manual) D-Dimer POC ABG pH POC ABG pCO2 POC ABG pO2 Chloride 108.8 H Carbon Dioxide BUN 21 H Creatinine 0.5 L Glucose 132 H POC Glucose Lactic Acid Calcium 8.0 L C-Reactive Protein 1.60 H 07/17/18 07/18/18 07/18/18 04:00 04:34 05:57 WBC RBC Hgb Hct MCV MCH Seg Neuts % (Manual) Lymphocytes % (Manual) Seg Neutrophils # Man Lymphocytes # (Manual) D-Dimer POC ABG pH 7.280 L POC ABG pCO2 46.3 H 63.1 H POC ABG pO2 124 H Chloride Carbon Dioxide BUN Creatinine Glucose POC Glucose 114 H Lactic Acid Calcium C-Reactive Protein 07/18/18 07/18/18 07/19/18 11:22 18:03 05:34 WBC RBC Hgb Hct MCV MCH Seg Neuts % (Manual) Lymphocytes % (Manual) Seg Neutrophils # Man Lymphocytes # (Manual) D-Dimer POC ABG pH 7.235 L 7.251 L 7.329 L POC ABG pCO2 75.6 H 76.3 H 64.7 H POC ABG pO2 67 L Chloride Carbon Dioxide BUN Creatinine Glucose POC Glucose Lactic Acid Calcium C-Reactive Protein 07/19/18 07/20/18 16:58 11:28 WBC RBC Hgb Hct MCV MCH Seg Neuts % (Manual) Lymphocytes % (Manual) Seg Neutrophils # Man Lymphocytes # (Manual) D-Dimer POC ABG pH 7.336 L POC ABG pCO2 72.2 H 71.2 H POC ABG pO2 75 L 77 L Chloride Carbon Dioxide BUN Creatinine Glucose POC Glucose Lactic Acid Calcium C-Reactive Protein Chest x-ray: image reviewed (no new infiltrate; ETT well positioned) Allied health notes reviewed: nursing
--- NOTE | 2018-07-20 16:15 | Progress Note ---
Assessment and Plan Assessment and plan: Patient is a 63-year-old female with known history of hypertension, asthma, COPD, previously intubated in the past admitted with shortness of breath and presumed sepsis although etiology not known at this time. Pateint was intubated for hypercarpenia and continues at this time. Acute respiratory failure with hypercarpenia SIRS Diabetes mellitus Lactic acidosis COPD with Exacerbation GERD Moderate to Severe Protein calorie Malnutrition Plan: Continue supportive care with ICU care Continue Abx For Empiric coverage Adjust insulin Patient recently on Steriods which could explain the leukocytosis. Pulmonary Management per Stuffed Casing Tier Start Tube feed DVT/GI prophy The high probability of a clinically significant, sudden or life threatening deterioration of the [pulmonary] system(s) required my full and direct attention, intervention and personal management. The aggregate critical care time was [35] minutes. This time is in addition to time spent performing reported procedures but includes the following: [x] Data Review and interpretation [x] Patient assessment and monitoring of vital signs [x] Documentation [x] Medication orders and management History Interval history: Patient was seen and evaluated this morning, patient was intubated and on MV. Patient was alert. Will do ABG before weaned off. Hospitalist Physical - Physical exam Narrative exam: patient is intubated The patient appeared well nourished and normally developed. Vital signs as documented. Head exam is unremarkable. No scleral icterus . Neck is without jugular venous distension, thyromegaly, or carotid bruits. Lungs are clear to auscultation. Cardiac exam reveals regular rate and Rhythm. Abdominal exam reveals normal bowel sounds. Extremities are nonedematous and both femoral and pedal pulses are normal. RENTAL AGENT: Alert . - Constitutional Vitals: Temp Pulse Resp BP Pulse Ox 97.9 F 70 19 156/69 95 07/20/18 12:51 07/20/18 15:09 07/20/18 15:09 07/20/18 14:05 07/20/18 15:09 Results - Labs CBC & Chem 7: 07/17/18 03:11 07/17/18 03:11 Labs: Laboratory Last Values WBC 7.1 K/mm3 (4.5-11.0) 07/17/18 03:11 RBC 3.31 M/mm3 (3.65-5.03) L 07/17/18 03:11 Hgb 11.2 gm/dl (10.1-14.3) D 07/17/18 03:11 Hct 34.5 % (30.3-42.9) D 07/17/18 03:11 MCV 104 fl (79-97) H 07/17/18 03:11 MCH 34 pg (28-32) H 07/17/18 03:11 MCHC 32 % (30-34) 07/17/18 03:11 RDW 14.1 % (13.2-15.2) 07/17/18 03:11 Plt Count 250 K/mm3 (140-440) 07/17/18 03:11 Add Manual Diff Complete 07/15/18 19:55 Total Counted 100 07/15/18 19:55 Seg Neutrophils % Manager Configuration 07/15/18 19:55 Seg Neuts % (Manual) 96.0 % (40.0-70.0) H 07/15/18 19:55 Band Neutrophils % 0 % 07/15/18 19:55 Lymphocytes % (Manual) 3.0 % (13.4-35.0) L 07/15/18 19:55 Reactive Lymphs % (Man) 0 % 07/15/18 19:55 Monocytes % (Manual) 1.0 % (0.0-7.3) 07/15/18 19:55 Eosinophils % (Manual) 0 % (0.0-4.3) 07/15/18 19:55 Basophils % (Manual) 0 % (0.0-1.8) 07/15/18 19:55 Metamyelocytes % 0 % 07/15/18 19:55 Myelocytes % 0 % 07/15/18 19:55 Promyelocytes % 0 % 07/15/18 19:55 Blast Cells % 0 % 07/15/18 19:55 Nucleated RBC % Not Reportable 07/15/18 19:55 Seg Neutrophils # Man 13.7 K/mm3 (1.8-7.7) H 07/15/18 19:55 Band Neutrophils # 0.0 K/mm3 07/15/18 19:55 Lymphocytes # (Manual) 0.4 K/mm3 (1.2-5.4) L 07/15/18 19:55 Abs React Lymphs (Man) 0.0 K/mm3 07/15/18 19:55 Monocytes # (Manual) 0.1 K/mm3 (0.0-0.8) 07/15/18 19:55 Eosinophils # (Manual) 0.0 K/mm3 (0.0-0.4) 07/15/18 19:55 Basophils # (Manual) 0.0 K/mm3 (0.0-0.1) 07/15/18 19:55 Metamyelocytes # 0.0 K/mm3 07/15/18 19:55 Myelocytes # 0.0 K/mm3 07/15/18 19:55 Promyelocytes # 0.0 K/mm3 07/15/18 19:55 Blast Cells # 0.0 K/mm3 07/15/18 19:55 WBC Morphology Not Reportable 07/15/18 19:55 Hypersegmented Neuts Not Reportable 07/15/18 19:55 Hyposegmented Neuts Not Reportable 07/15/18 19:55 Hypogranular Neuts Not Reportable 07/15/18 19:55 Smudge Cells Not Reportable 07/15/18 19:55 Toxic Granulation Not Reportable 07/15/18 19:55 Toxic Vacuolation Not Reportable 07/15/18 19:55 Dohle Bodies Not Reportable 07/15/18 19:55 Pelger-Huet Anomaly Not Reportable 07/15/18 19:55 Lindsay Rods Not Reportable 07/15/18 19:55 Platelet Estimate Appears normal 07/15/18 19:55 Clumped Platelets Not Reportable 07/15/18 19:55 Plt Clumps, EDTA Not Reportable 07/15/18 19:55 Large Platelets Not Reportable 07/15/18 19:55 Giant Platelets Not Reportable 07/15/18 19:55 Platelet Satelliting Not Reportable 07/15/18 19:55 Plt Morphology Comment Not Reportable 07/15/18 19:55 RBC Morphology Not Reportable 07/15/18 19:55 Dimorphic RBCs Not Reportable 07/15/18 19:55 Polychromasia Not Reportable 07/15/18 19:55 Hypochromasia Not Reportable 07/15/18 19:55 Poikilocytosis Few 07/15/18 19:55 Anisocytosis 1+ 07/15/18 19:55 Microcytosis Not Reportable 07/15/18 19:55 Macrocytosis Not Reportable 07/15/18 19:55 Spherocytes Not Reportable 07/15/18 19:55 Pappenheimer Bodies Not Reportable 07/15/18 19:55 Sickle Cells Not Reportable 07/15/18 19:55 Target Cells Not Reportable 07/15/18 19:55 Tear Drop Cells Not Reportable 07/15/18 19:55 Ovalocytes Not Reportable 07/15/18 19:55 Helmet Cells Not Reportable 07/15/18 19:55 [place] Bodies Not Reportable 07/15/18 19:55 [place] Rings Not Reportable 07/15/18 19:55 [place] Cells Not Reportable 07/15/18 19:55 Bite Cells Not Reportable 07/15/18 19:55 Crenated Cell Not Reportable 07/15/18 19:55 Elliptocytes Not Reportable 07/15/18 19:55 Acanthocytes (Spur) Not Reportable 07/15/18 19:55 Rouleaux Not Reportable 07/15/18 19:55 Hemoglobin C Crystals Not Reportable 07/15/18 19:55 Schistocytes Rare 07/15/18 19:55 Malaria parasites Not Reportable 07/15/18 19:55 [place] Bodies Not Reportable 07/15/18 19:55 Hem Pathologist Commnt No 07/15/18 19:55 D-Dimer 498.74 ng/mlDDU (0-234) H 07/16/18 16:00 POC ABG pH 7.388 (7.35-7.45) 07/20/18 11:28 POC ABG pCO2 71.2 (35-45) H 07/20/18 11:28 POC ABG pO2 77 (80-105) L 07/20/18 11:28 POC ABG HCO3 43.0 07/20/18 11:28 POC ABG Total CO2 45 07/20/18 11:28 POC ABG O2 Sat 94 07/20/18 11:28 POC ABG Base Excess 18 07/20/18 11:28 FiO2 30 % 07/20/18 11:28 Sodium 140 mmol/L (137-145) 07/17/18 03:11 Potassium 4.4 mmol/L (3.6-5.0) 07/17/18 03:11 Chloride 108.8 mmol/L (98-107) H 07/17/18 03:11 Carbon Dioxide 27 mmol/L (22-30) D 07/17/18 03:11 Anion Gap 9 mmol/L 07/17/18 03:11 BUN 21 mg/dL (7-17) H 07/17/18 03:11 Creatinine 0.5 mg/dL (0.7-1.2) L 07/17/18 03:11 Estimated GFR > 60 ml/min 07/17/18 03:11 BUN/Creatinine Ratio 42 % 07/17/18 03:11 Glucose 132 mg/dL (65-100) H 07/17/18 03:11 POC Glucose 114 (70-105) H 07/18/18 05:57 Lactic Acid 1.20 mmol/L (0.7-2.0) 07/16/18 16:00 Calcium 8.0 mg/dL (8.4-10.2) L 07/17/18 03:11 C-Reactive Protein 1.60 mg/dL (0.00-1.30) H 07/16/18 16:00 Urine Color Yellow (Yellow) 07/16/18 05:45 Urine Turbidity Clear (Clear) 07/16/18 05:45 Urine pH 6.0 (5.0-7.0) 07/16/18 05:45 Ur Specific [place] 1.021 (1.003-1.030) 07/16/18 05:45 Urine Protein <15 mg/dl mg/dL (Negative) 07/16/18 05:45 Urine Glucose (UA) Neg mg/dL (Negative) 07/16/18 05:45 Urine Ketones Neg mg/dL (Negative) 07/16/18 05:45 Urine Blood Sm (Negative) 07/16/18 05:45 Urine Nitrite Neg (Negative) 07/16/18 05:45 Urine Bilirubin Neg (Negative) 07/16/18 05:45 Urine Urobilinogen < 2.0 mg/dL (<2.0) 07/16/18 05:45 Ur Leukocyte Esterase Neg (Negative) 07/16/18 05:45 Urine WBC (Auto) 3.0 /HPF (0.0-6.0) 07/16/18 05:45 Urine RBC (Auto) 13.0 /HPF (0.0-6.0) 07/16/18 05:45 Hyaline Casts 1 /LPF 07/16/18 05:45 Waxy Casts 9 /LPF 07/16/18 05:45 Urine Mucus Few /HPF 07/16/18 05:45 Nutrition/Malnutrition Assess - Dietary Evaluation Nutrition/Malnutrition Findings: Nutrition Notes Start: 07/16/18 15:21 Freq: Status: Active Protocol: Document 07/19/18 15:33 JARED (Rec: 07/19/18 15:39 JARED [email or web address] [email or web address]) Nutrition Notes Initial or Follow up Reassessment Current Diagnosis COPD Diabetes Hypertension Respiratory Failure Current Diet TF - Vital AF 1.2 at 50ml/hr Labs/Tests No current available Pertinent Medications Reviewed Height 5 ft 5 in Weight 63.1 kg [place] Body Weight (kg) 56.81 BMI 23.1 Weight change and time frame Current wt obtained from bed scale Weight Status Appropriate Subjective/Other Information Pt tolerating TF at goal rate. She remains on vent support. Percent of energy/protein needs met: 100% energy and pro Burn Absent Trauma Absent #1 Nutrition Diagnosis Inadequate oral intake Diagnosis Progress(for reassessment Continues documentation) Is patient on ventilator? Yes Is Patient Ambulatory and/or Out of Bed No REE-(Kern-St. Jeor-confined to bed) [phone] Calculation Used for Recommendations Kern-St Jeor Additional Notes Pro needs 1.2-2g/k-126g/ day Fluid needs 1ml/kcal Nutrition Intervention Nutrition Support: Continue Vital AF 1.2 at 50ml/ hr with 100ml water flush q4h. Kcal 1,440 Protein (gm) 90 Carbohydrates (gm) 133 Fluid (mL) 973 Goal #1 TF tolerance Goal #2 TF to meet 90-100% energy and pro needs Anticipated Discharge Needs: Continue low-CHO TF formula if unable to advance diet Follow-Up By: 07/26/18 Additional Comments F/U: stable TF, wt, vent status
[2018-07-20] MEDS: SINGULAIR PO SCH (21:21)
[2018-07-20] MEDS: TYLENOL FEEDTUBE PRN (21:38)
[2018-07-21] MEDS: PROVENTIL IH SCH ×5 (02:14→20:02)
[2018-07-21] MEDS: APRESOLINE PO SCH ×3 (05:13→21:36)
--- NOTE | 2018-07-21 09:01 | Progress Note ---
Assessment and Plan Acute on chronic hypoxemic respiratory failure. Acute chronic obstructive pulmonary disease exacerbation. Right lower lobe pneumonia, community acquired. Leukocytosis. Hypercapnic respiratory failure. Elevated lactic acid level. Hypertensive urgency at presentation. History of hypertension. - continue bronchodilators with pulmonary hygiene per RT - continue systemic steroid therapy, start taper today - continue bronchodilators - monitor WCC trends - continue to wean oxygen for target O2 Sat's 88-90% -Oxygen restrictive therapy -PT/OT to increase activity -Glycemic control, target blood glucose of 140-180mg/dL - continue empiric AB's and de-escalate based on clinical and microbiologic data - continue enteral nutrition as tolerated with aspiration precautions - mobility protocol for pressure ulcer prophylaxis - GI & VTE prophylaxis OK to transfer telemetry Discussed with Dr. Mancilla...will transfer care Subjective Date of service: 07/21/18 Principal diagnosis: Ac on ch hypoxemic Resp failure; AE-COPD; RLL PNA (CAP); Hypercapnic Failur Interval history: Patient is seen today for: Acute on chronic hypoxemic respiratory failure; Acute chronic obstructive pulmonary disease exacerbation; Right lower lobe pneumonia, community acquired; Leukocytosis; Hypercapnic respiratory failure. Seen and examined at bedside; 24hour events reviewed; nursing and respiratory care staff consulted; no adverse overnight events reported to me; extubated yesterday, currently in a chair on 2LNC, tolerating a diet. States that she is still short of breath but at her baseline. NO fevers or chills, no diarrhea, nausea or vomiting. 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 Mk kaur Objective Vital Signs - 12hr 07/20/18 07/20/18 07/20/18 21:03 21:20 21:38 Temperature Pulse Rate 104 H Pulse Rate [ 111 H Anterior Bilateral Throughout] Pulse Rate [ From Monitor] Respiratory 29 H Rate Respiratory 17 Rate [Anterior Bilateral Throughout] Blood Pressure 151/67 O2 Sat by Pulse Oximetry 07/20/18 07/20/18 07/20/18 22:00 22:38 23:00 Temperature Pulse Rate 76 96 H Pulse Rate [ Anterior Bilateral Throughout] Pulse Rate [ From Monitor] Respiratory 17 17 16 Rate Respiratory Rate [Anterior Bilateral Throughout] Blood Pressure 152/69 141/51 O2 Sat by Pulse 93 Oximetry 07/20/18 07/20/18 07/21/18 23:01 23:27 00:00 Temperature 98.0 F Pulse Rate 96 H 116 H 94 H Pulse Rate [ Anterior Bilateral Throughout] Pulse Rate [ 103 H From Monitor] Respiratory 17 34 H 25 H Rate Respiratory Rate [Anterior Bilateral Throughout] Blood Pressure 141/51 171/90 141/68 O2 Sat by Pulse 92 93 94 Oximetry 07/21/18 07/21/18 07/21/18 01:00 02:00 02:15 Temperature Pulse Rate 68 59 L Pulse Rate [ 56 L Anterior Bilateral Throughout] Pulse Rate [ From Monitor] Respiratory 22 22 Rate Respiratory 22 Rate [Anterior Bilateral Throughout] Blood Pressure 144/66 136/56 O2 Sat by Pulse 94 93 Oximetry 07/21/18 07/21/18 07/21/18 02:37 03:00 04:00 Temperature 98.7 F Pulse Rate 58 L 54 L Pulse Rate [ 67 Anterior Bilateral Throughout] Pulse Rate [ From Monitor] Respiratory 19 20 Rate Respiratory 17 Rate [Anterior Bilateral Throughout] Blood Pressure 134/58 130/62 O2 Sat by Pulse 94 95 Oximetry 07/21/18 07/21/18 07/21/18 04:41 04:43 05:00 Temperature Pulse Rate 52 L 50 L Pulse Rate [ Anterior Bilateral Throughout] Pulse Rate [ 53 L From Monitor] Respiratory 18 18 20 Rate Respiratory Rate [Anterior Bilateral Throughout] Blood Pressure 135/66 133/62 O2 Sat by Pulse 99 100 95 Oximetry 07/21/18 07/21/18 07/21/18 05:13 06:00 07:00 Temperature Pulse Rate 48 L 56 L 55 L Pulse Rate [ Anterior Bilateral Throughout] Pulse Rate [ From Monitor] Respiratory 17 19 Rate Respiratory Rate [Anterior Bilateral Throughout] Blood Pressure 133/62 134/59 135/60 O2 Sat by Pulse 96 95 Oximetry 07/21/18 07/21/18 08:00 08:18 Temperature 98.3 F Pulse Rate 70 Pulse Rate [ Anterior Bilateral Throughout] Pulse Rate [ From Monitor] Respiratory 17 Rate Respiratory Rate [Anterior Bilateral Throughout] Blood Pressure 131/60 O2 Sat by Pulse 95 Oximetry Constitutional: appears uncomfortable, other (elderly thin looking AAF, normocephalic and atraumatic with increased resp effort) Eyes: non-icteric ENT: oropharynx moist, other Neck: supple, no lymphadenopathy, no JVD, other (No thyromegaly) Effort: mildly labored Ascultation: Bilateral: diminished breath sounds, wheezes (expiratory), rhonchi Percussion: Bilateral: not dull Cardiovascular: regular rate and rhythm Gastrointestinal: normoactive bowel sounds, soft, non-tender, non-distended Integumentary: rash Extremities: no cyanosis, no edema, pulses normal, no ischemia or petechiae Neurologic: normal mental status, non-focal exam, pupils equal and round, motor strength normal and Psychiatric: mood appropriate, affect normal CBC and BMP: 07/17/18 03:11 07/17/18 03:11 ABG, PT/INR, D-dimer: ABG POC ABG pH 7.388 (7.35-7.45) 07/20/18 11:28 POC ABG pCO2 71.2 (35-45) H 07/20/18 11:28 POC ABG pO2 77 (80-105) L 07/20/18 11:28 POC ABG HCO3 43.0 07/20/18 11:28 POC ABG Total CO2 45 07/20/18 11:28 POC ABG O2 Sat 94 07/20/18 11:28 PT/INR, D-dimer D-Dimer 498.74 ng/mlDDU (0-234) H 07/16/18 16:00 Abnormal lab findings: Abnormal Labs 07/15/18 07/15/18 07/15/18 19:55 19:55 20:04 WBC 14.3 H RBC Hgb 14.6 H Hct 44.9 H MCV 106 H MCH 34 H Seg Neuts % (Manual) 96.0 H Lymphocytes % (Manual) 3.0 L Seg Neutrophils # Man 13.7 H Lymphocytes # (Manual) 0.4 L D-Dimer POC ABG pH 7.105 L POC ABG pCO2 120.2 H POC ABG pO2 71 L Chloride Carbon Dioxide 36 H BUN Creatinine 0.6 L Glucose 172 H POC Glucose Lactic Acid Calcium C-Reactive Protein 07/15/18 07/15/18 07/15/18 20:46 21:18 22:05 WBC RBC Hgb Hct MCV MCH Seg Neuts % (Manual) Lymphocytes % (Manual) Seg Neutrophils # Man Lymphocytes # (Manual) D-Dimer POC ABG pH 7.305 L POC ABG pCO2 64.5 H POC ABG pO2 220 H Chloride Carbon Dioxide BUN Creatinine Glucose POC Glucose Lactic Acid 2.40 H* 3.40 H* Calcium C-Reactive Protein 07/15/18 07/16/18 07/16/18 23:27 07:50 16:00 WBC RBC Hgb Hct MCV MCH Seg Neuts % (Manual) Lymphocytes % (Manual) Seg Neutrophils # Man Lymphocytes # (Manual) D-Dimer 498.74 H POC ABG pH 7.328 L POC ABG pCO2 50.0 H POC ABG pO2 Chloride Carbon Dioxide BUN Creatinine Glucose POC Glucose Lactic Acid 3.60 H* Calcium C-Reactive Protein 07/16/18 07/17/18 07/17/18 16:00 03:11 03:11 WBC RBC 3.31 L Hgb Hct MCV 104 H MCH 34 H Seg Neuts % (Manual) Lymphocytes % (Manual) Seg Neutrophils # Man Lymphocytes # (Manual) D-Dimer POC ABG pH POC ABG pCO2 POC ABG pO2 Chloride 108.8 H Carbon Dioxide BUN 21 H Creatinine 0.5 L Glucose 132 H POC Glucose Lactic Acid Calcium 8.0 L C-Reactive Protein 1.60 H 07/17/18 07/18/18 07/18/18 04:00 04:34 05:57 WBC RBC Hgb Hct MCV MCH Seg Neuts % (Manual) Lymphocytes % (Manual) Seg Neutrophils # Man Lymphocytes # (Manual) D-Dimer POC ABG pH 7.280 L POC ABG pCO2 46.3 H 63.1 H POC ABG pO2 124 H Chloride Carbon Dioxide BUN Creatinine Glucose POC Glucose 114 H Lactic Acid Calcium C-Reactive Protein 07/18/18 07/18/18 07/19/18 11:22 18:03 05:34 WBC RBC Hgb Hct MCV MCH Seg Neuts % (Manual) Lymphocytes % (Manual) Seg Neutrophils # Man Lymphocytes # (Manual) D-Dimer POC ABG pH 7.235 L 7.251 L 7.329 L POC ABG pCO2 75.6 H 76.3 H 64.7 H POC ABG pO2 67 L Chloride Carbon Dioxide BUN Creatinine Glucose POC Glucose Lactic Acid Calcium C-Reactive Protein 07/19/18 07/20/18 16:58 11:28 WBC RBC Hgb Hct MCV MCH Seg Neuts % (Manual) Lymphocytes % (Manual) Seg Neutrophils # Man Lymphocytes # (Manual) D-Dimer POC ABG pH 7.336 L POC ABG pCO2 72.2 H 71.2 H POC ABG pO2 75 L 77 L Chloride Carbon Dioxide BUN Creatinine Glucose POC Glucose Lactic Acid Calcium C-Reactive Protein Chest x-ray: image reviewed (CXR was done prior to extubation, ETT in place, chronic changes, hyperinflated lung santoro) Allied health notes reviewed: RT
[2018-07-21] MEDS: PULMICORT IH SCH ×2 (09:07→20:02)
[2018-07-21] MEDS: BROVANA NEBU IH SCH ×2 (09:07→20:02)
[2018-07-21] MEDS: SOLU-Medrol IV SCH (09:53)
[2018-07-21] MEDS: NORVASC PO SCH (09:54)
[2018-07-21] MEDS: HEPARIN SUB-Q SCH ×2 (09:54→21:36)
[2018-07-21] MEDS: PREVACID SOLUTAB FEEDTUBE SCH (09:58)
[2018-07-21] MEDS: TYLENOL PO PRN ×2 (13:35→21:37)
--- NOTE | 2018-07-21 15:43 | Progress Note ---
Assessment and Plan Assessment and plan: Patient is a 63-year-old female with known history of hypertension, asthma, COPD, previously intubated in the past admitted with shortness of breath and presumed sepsis although etiology not known at this time. Pateint was intubated for hypercarpenia and continues at this time. Acute respiratory failure with hypercarpenia SIRS Diabetes mellitus Lactic acidosis COPD with Exacerbation GERD Moderate to Severe Protein calorie Malnutrition Plan: Continue supportive care with ICU care Continue Abx For Empiric coverage Adjust insulin Patient recently on Steriods which could explain the leukocytosis. Pulmonary Management per Newspaper Vendor Start Tube feed DVT/GI prophy Disposition - Transfer to the floor History Interval history: Patient was seen and evaluated this morning, patient was extubated on 07/20/18. Patient still has some congestion Hospitalist Physical - Physical exam Narrative exam: patient is intubated The patient appeared well nourished and normally developed. Vital signs as documented. Head exam is unremarkable. No scleral icterus . Neck is without jugular venous distension, thyromegaly, or carotid bruits. Lungs are clear to auscultation. Cardiac exam reveals regular rate and Rhythm. Abdominal exam reveals normal bowel sounds. Extremities are nonedematous and both femoral and pedal pulses are normal. CROP SPECIALIST: Alert . - Constitutional Vitals: Temp Pulse Resp BP Pulse Ox 97.1 F L 109 H 23 149/65 90 07/21/18 12:30 07/21/18 14:37 07/21/18 14:37 07/21/18 14:00 07/21/18 14:00 Results - Labs CBC & Chem 7: 07/17/18 03:11 07/17/18 03:11 Labs: Laboratory Last Values WBC 7.1 K/mm3 (4.5-11.0) 07/17/18 03:11 RBC 3.31 M/mm3 (3.65-5.03) L 07/17/18 03:11 Hgb 11.2 gm/dl (10.1-14.3) D 07/17/18 03:11 Hct 34.5 % (30.3-42.9) D 07/17/18 03:11 MCV 104 fl (79-97) H 07/17/18 03:11 MCH 34 pg (28-32) H 07/17/18 03:11 MCHC 32 % (30-34) 07/17/18 03:11 RDW 14.1 % (13.2-15.2) 07/17/18 03:11 Plt Count 250 K/mm3 (140-440) 07/17/18 03:11 Add Manual Diff Complete 07/15/18 19:55 Total Counted 100 07/15/18 19:55 Seg Neutrophils % Master Glazier 07/15/18 19:55 Seg Neuts % (Manual) 96.0 % (40.0-70.0) H 07/15/18 19:55 Band Neutrophils % 0 % 07/15/18 19:55 Lymphocytes % (Manual) 3.0 % (13.4-35.0) L 07/15/18 19:55 Reactive Lymphs % (Man) 0 % 07/15/18 19:55 Monocytes % (Manual) 1.0 % (0.0-7.3) 07/15/18 19:55 Eosinophils % (Manual) 0 % (0.0-4.3) 07/15/18 19:55 Basophils % (Manual) 0 % (0.0-1.8) 07/15/18 19:55 Metamyelocytes % 0 % 07/15/18 19:55 Myelocytes % 0 % 07/15/18 19:55 Promyelocytes % 0 % 07/15/18 19:55 Blast Cells % 0 % 07/15/18 19:55 Nucleated RBC % Not Reportable 07/15/18 19:55 Seg Neutrophils # Man 13.7 K/mm3 (1.8-7.7) H 07/15/18 19:55 Band Neutrophils # 0.0 K/mm3 07/15/18 19:55 Lymphocytes # (Manual) 0.4 K/mm3 (1.2-5.4) L 07/15/18 19:55 Abs React Lymphs (Man) 0.0 K/mm3 07/15/18 19:55 Monocytes # (Manual) 0.1 K/mm3 (0.0-0.8) 07/15/18 19:55 Eosinophils # (Manual) 0.0 K/mm3 (0.0-0.4) 07/15/18 19:55 Basophils # (Manual) 0.0 K/mm3 (0.0-0.1) 07/15/18 19:55 Metamyelocytes # 0.0 K/mm3 07/15/18 19:55 Myelocytes # 0.0 K/mm3 07/15/18 19:55 Promyelocytes # 0.0 K/mm3 07/15/18 19:55 Blast Cells # 0.0 K/mm3 07/15/18 19:55 WBC Morphology Not Reportable 07/15/18 19:55 Hypersegmented Neuts Not Reportable 07/15/18 19:55 Hyposegmented Neuts Not Reportable 07/15/18 19:55 Hypogranular Neuts Not Reportable 07/15/18 19:55 Smudge Cells Not Reportable 07/15/18 19:55 Toxic Granulation Not Reportable 07/15/18 19:55 Toxic Vacuolation Not Reportable 07/15/18 19:55 Dohle Bodies Not Reportable 07/15/18 19:55 Pelger-Huet Anomaly Not Reportable 07/15/18 19:55 Lindsay Rods Not Reportable 07/15/18 19:55 Platelet Estimate Appears normal 07/15/18 19:55 Clumped Platelets Not Reportable 07/15/18 19:55 Plt Clumps, EDTA Not Reportable 07/15/18 19:55 Large Platelets Not Reportable 07/15/18 19:55 Giant Platelets Not Reportable 07/15/18 19:55 Platelet Satelliting Not Reportable 07/15/18 19:55 Plt Morphology Comment Not Reportable 07/15/18 19:55 RBC Morphology Not Reportable 07/15/18 19:55 Dimorphic RBCs Not Reportable 07/15/18 19:55 Polychromasia Not Reportable 07/15/18 19:55 Hypochromasia Not Reportable 07/15/18 19:55 Poikilocytosis Few 07/15/18 19:55 Anisocytosis 1+ 07/15/18 19:55 Microcytosis Not Reportable 07/15/18 19:55 Macrocytosis Not Reportable 07/15/18 19:55 Spherocytes Not Reportable 07/15/18 19:55 Pappenheimer Bodies Not Reportable 07/15/18 19:55 Sickle Cells Not Reportable 07/15/18 19:55 Target Cells Not Reportable 07/15/18 19:55 Tear Drop Cells Not Reportable 07/15/18 19:55 Ovalocytes Not Reportable 07/15/18 19:55 Helmet Cells Not Reportable 07/15/18 19:55 [place] Bodies Not Reportable 07/15/18 19:55 [place] Rings Not Reportable 07/15/18 19:55 [place] Cells Not Reportable 07/15/18 19:55 Bite Cells Not Reportable 07/15/18 19:55 Crenated Cell Not Reportable 07/15/18 19:55 Elliptocytes Not Reportable 07/15/18 19:55 Acanthocytes (Spur) Not Reportable 07/15/18 19:55 Rouleaux Not Reportable 07/15/18 19:55 Hemoglobin C Crystals Not Reportable 07/15/18 19:55 Schistocytes Rare 07/15/18 19:55 Malaria parasites Not Reportable 07/15/18 19:55 [place] Bodies Not Reportable 07/15/18 19:55 Hem Pathologist Commnt No 07/15/18 19:55 D-Dimer 498.74 ng/mlDDU (0-234) H 07/16/18 16:00 POC ABG pH 7.388 (7.35-7.45) 07/20/18 11:28 POC ABG pCO2 71.2 (35-45) H 07/20/18 11:28 POC ABG pO2 77 (80-105) L 07/20/18 11:28 POC ABG HCO3 43.0 07/20/18 11:28 POC ABG Total CO2 45 07/20/18 11:28 POC ABG O2 Sat 94 07/20/18 11:28 POC ABG Base Excess 18 07/20/18 11:28 FiO2 30 % 07/20/18 11:28 Sodium 140 mmol/L (137-145) 07/17/18 03:11 Potassium 4.4 mmol/L (3.6-5.0) 07/17/18 03:11 Chloride 108.8 mmol/L (98-107) H 07/17/18 03:11 Carbon Dioxide 27 mmol/L (22-30) D 07/17/18 03:11 Anion Gap 9 mmol/L 07/17/18 03:11 BUN 21 mg/dL (7-17) H 07/17/18 03:11 Creatinine 0.5 mg/dL (0.7-1.2) L 07/17/18 03:11 Estimated GFR > 60 ml/min 07/17/18 03:11 BUN/Creatinine Ratio 42 % 07/17/18 03:11 Glucose 132 mg/dL (65-100) H 07/17/18 03:11 POC Glucose 114 (70-105) H 07/18/18 05:57 Lactic Acid 1.20 mmol/L (0.7-2.0) 07/16/18 16:00 Calcium 8.0 mg/dL (8.4-10.2) L 07/17/18 03:11 C-Reactive Protein 1.60 mg/dL (0.00-1.30) H 07/16/18 16:00 Urine Color Yellow (Yellow) 07/16/18 05:45 Urine Turbidity Clear (Clear) 07/16/18 05:45 Urine pH 6.0 (5.0-7.0) 07/16/18 05:45 Ur Specific [place] 1.021 (1.003-1.030) 07/16/18 05:45 Urine Protein <15 mg/dl mg/dL (Negative) 07/16/18 05:45 Urine Glucose (UA) Neg mg/dL (Negative) 07/16/18 05:45 Urine Ketones Neg mg/dL (Negative) 07/16/18 05:45 Urine Blood Sm (Negative) 07/16/18 05:45 Urine Nitrite Neg (Negative) 07/16/18 05:45 Urine Bilirubin Neg (Negative) 07/16/18 05:45 Urine Urobilinogen < 2.0 mg/dL (<2.0) 07/16/18 05:45 Ur Leukocyte Esterase Neg (Negative) 07/16/18 05:45 Urine WBC (Auto) 3.0 /HPF (0.0-6.0) 07/16/18 05:45 Urine RBC (Auto) 13.0 /HPF (0.0-6.0) 07/16/18 05:45 Hyaline Casts 1 /LPF 07/16/18 05:45 Waxy Casts 9 /LPF 07/16/18 05:45 Urine Mucus Few /HPF 07/16/18 05:45 Nutrition/Malnutrition Assess - Dietary Evaluation Nutrition/Malnutrition Findings: Nutrition Notes Start: 07/16/18 15:21 Freq: Status: Active Protocol: Document 07/19/18 15:33 NHALL (Rec: 07/19/18 15:39 JARED [id number] [email or web address]) Nutrition Notes Initial or Follow up Reassessment Current Diagnosis COPD Diabetes Hypertension Respiratory Failure Current Diet TF - Vital AF 1.2 at 50ml/hr Labs/Tests No current available Pertinent Medications Reviewed Height 5 ft 5 in Weight 63.1 kg [place] Body Weight (kg) 56.81 BMI 23.1 Weight change and time frame Current wt obtained from bed scale Weight Status Appropriate Subjective/Other Information Pt tolerating TF at goal rate. She remains on vent support. Percent of energy/protein needs met: 100% energy and pro Burn Absent Trauma Absent #1 Nutrition Diagnosis Inadequate oral intake Diagnosis Progress(for reassessment Continues documentation) Is patient on ventilator? Yes Is Patient Ambulatory and/or Out of Bed No REE-(Grainger-St. Jeor-confined to bed) 1441.344 Calculation Used for [facility]ations [facility] Additional Notes Pro needs 1.2-2g/k-126g/ day Fluid needs 1ml/kcal Nutrition Intervention Nutrition Support: Continue Vital AF 1.2 at 50ml/ hr with 100ml water flush q4h. Kcal 1,440 Protein (gm) 90 Carbohydrates (gm) 133 Fluid (mL) 973 Goal #1 TF tolerance Goal #2 TF to meet 90-100% energy and pro needs Anticipated Discharge Needs: Continue low-CHO TF formula if unable to advance diet Follow-Up By: 07/26/18 Additional Comments F/U: stable TF, wt, vent status
[2018-07-21] MEDS: SINGULAIR PO SCH (21:37)
[2018-07-22] MEDS: PROVENTIL IH SCH ×4 (02:36→20:51)
[2018-07-22] MEDS: TYLENOL PO PRN ×3 (04:11→19:58)
[2018-07-22 05:44] LABS: Basophils % (Auto) 0.3 % (0.0-1.8); Eosinophils % (Auto) 0.1 % (0.0-4.3); Hematocrit 40.4 % (30.3-42.9); Lymphocytes # (Auto) 1.3 K/mm3 (1.2-5.4); Lymphocytes % (Auto) 11.6 % (13.4-35.0); Mean Corpuscular HGB Conc 32 % (30-34); Mean Corpuscular Volume 103 fl (79-97); Monocytes % (Auto) 9.1 % (0.0-7.3); Platelet Count 294 K/mm3 (140-440); Red Blood Count 3.94 M/mm3 (3.65-5.03); Red Cell Distribution Width 13.5 % (13.2-15.2)
[2018-07-22] MEDS: APRESOLINE PO SCH ×3 (05:48→21:33)
[2018-07-22 06:13] LABS: BUN/Creatinine Ratio 40; Blood Urea Nitrogen 12 mg/dL (7-17); Calcium 9.3 mg/dL (8.4-10.2); Hemolysis Index 8
[2018-07-22 07:03] LABS: BUN/Creatinine Ratio 37; Blood Urea Nitrogen 11 mg/dL (7-17); Calcium 9.1 mg/dL (8.4-10.2); Hemolysis Index 16
[2018-07-22] MEDS: PULMICORT IH SCH ×2 (07:25→20:50)
[2018-07-22] MEDS: BROVANA NEBU IH SCH ×2 (07:25→20:50)
[2018-07-22] MEDS ORDERED: K-DUR PO ONE (10:00)
[2018-07-22] MEDS: HEPARIN SUB-Q SCH ×2 (10:05→21:30)
[2018-07-22] MEDS: PROTONIX PO SCH (10:05)
[2018-07-22] MEDS: DELTASONE PO SCH (10:05)
[2018-07-22] MEDS: NORVASC PO SCH (10:49)
--- NOTE | 2018-07-22 11:04 | Progress Note ---
Assessment and Plan Assessment and plan: Patient is a 63-year-old female with known history of hypertension, asthma, COPD on 3 L of home oxygen, previously intubated in the past admitted with shortness of breath and presumed sepsis although etiology not known at this time. On this admission Pateint was intubated for hypercarpenia and extubated on 07/20 Acute respiratory failure with hypercarpenia - Patient is on BiPAP, her CO2 this morning was 49 - Patient's complaining cough and yellowish sputum, chest x-rays normal, I empirically started her on Levaquin - Pulmonary following SIRS; steroid-induced leukocytosis, tachypnea - Empirically on Levaquin Diabetes mellitus - Sliding-scale insulin Lactic acidosis - Resolved COPD with Exacerbation - On IV Solu-Medrol, duo nebs, nebulizer treatment, continue BiPAP GERD - On pantoprazole Moderate to Severe Protein calorie Malnutrition - Nutrition consult Disposition - Continue inpatient care History Interval history: Patient was seen and evaluated this morning, patient was extubated on 07/20/18. Patient was complaining shortness of breath, and cough productive of yellowish sputum. Hospitalist Physical - Physical exam Narrative exam: patient is on BiPAP The patient appeared well nourished and normally developed. Vital signs as documented. Head exam is unremarkable. No scleral icterus . Neck is without jugular venous distension, thyromegaly, or carotid bruits. Lungs decreased air entry on the right basilar area, wheezing all over the chest, poor air flow. Cardiac exam reveals regular rate and Rhythm. Abdominal exam reveals normal bowel sounds. Extremities are nonedematous and both femoral and pedal pulses are normal. 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 - Constitutional Vitals: Temp Pulse Resp BP Pulse Ox 97.6 F 71 20 150/78 99 07/22/18 08:20 07/22/18 10:49 07/22/18 10:23 07/22/18 10:49 07/22/18 10:00 Results - Labs CBC & Chem 7: 07/22/18 05:36 07/22/18 06:29 Labs: Laboratory Last Values WBC 11.4 K/mm3 (4.5-11.0) H 07/22/18 05:36 RBC 3.94 M/mm3 (3.65-5.03) 07/22/18 05:36 Hgb 13.0 gm/dl (10.1-14.3) 07/22/18 05:36 Hct 40.4 % (30.3-42.9) 07/22/18 05:36 MCV 103 fl (79-97) H 07/22/18 05:36 MCH 33 pg (28-32) H 07/22/18 05:36 MCHC 32 % (30-34) 07/22/18 05:36 RDW 13.5 % (13.2-15.2) 07/22/18 05:36 Plt Count 294 K/mm3 (140-440) 07/22/18 05:36 Lymph % (Auto) 11.6 % (13.4-35.0) L 07/22/18 05:36 Grand % (Auto) 9.1 % (0.0-7.3) H 07/22/18 05:36 Eos % (Auto) 0.1 % (0.0-4.3) 07/22/18 05:36 Baso % (Auto) 0.3 % (0.0-1.8) 07/22/18 05:36 Lymph # 1.3 K/mm3 (1.2-5.4) 07/22/18 05:36 Grand # 1.0 K/mm3 (0.0-0.8) H 07/22/18 05:36 Eos # 0.0 K/mm3 (0.0-0.4) 07/22/18 05:36 Baso # 0.0 K/mm3 (0.0-0.1) 07/22/18 05:36 Add Manual Diff Complete 07/15/18 19:55 Total Counted 100 07/15/18 19:55 Seg Neutrophils % 78.9 % (40.0-70.0) H 07/22/18 05:36 Seg Neuts % (Manual) 96.0 % (40.0-70.0) H 07/15/18 19:55 Band Neutrophils % 0 % 07/15/18 19:55 Lymphocytes % (Manual) 3.0 % (13.4-35.0) L 07/15/18 19:55 Reactive Lymphs % (Man) 0 % 07/15/18 19:55 Monocytes % (Manual) 1.0 % (0.0-7.3) 07/15/18 19:55 Eosinophils % (Manual) 0 % (0.0-4.3) 07/15/18 19:55 Basophils % (Manual) 0 % (0.0-1.8) 07/15/18 19:55 Metamyelocytes % 0 % 07/15/18 19:55 Myelocytes % 0 % 07/15/18 19:55 Promyelocytes % 0 % 07/15/18 19:55 Blast Cells % 0 % 07/15/18 19:55 Nucleated RBC % Not Reportable 07/15/18 19:55 Seg Neutrophils # 9.0 K/mm3 (1.8-7.7) H 07/22/18 05:36 Seg Neutrophils # Man 13.7 K/mm3 (1.8-7.7) H 07/15/18 19:55 Band Neutrophils # 0.0 K/mm3 07/15/18 19:55 Lymphocytes # (Manual) 0.4 K/mm3 (1.2-5.4) L 07/15/18 19:55 Abs React Lymphs (Man) 0.0 K/mm3 07/15/18 19:55 Monocytes # (Manual) 0.1 K/mm3 (0.0-0.8) 07/15/18 19:55 Eosinophils # (Manual) 0.0 K/mm3 (0.0-0.4) 07/15/18 19:55 Basophils # (Manual) 0.0 K/mm3 (0.0-0.1) 07/15/18 19:55 Metamyelocytes # 0.0 K/mm3 07/15/18 19:55 Myelocytes # 0.0 K/mm3 07/15/18 19:55 Promyelocytes # 0.0 K/mm3 07/15/18 19:55 Blast Cells # 0.0 K/mm3 07/15/18 19:55 WBC Morphology Not Reportable 07/15/18 19:55 Hypersegmented Neuts Not Reportable 07/15/18 19:55 Hyposegmented Neuts Not Reportable 07/15/18 19:55 Hypogranular Neuts Not Reportable 07/15/18 19:55 Smudge Cells Not Reportable 07/15/18 19:55 Toxic Granulation Not Reportable 07/15/18 19:55 Toxic Vacuolation Not Reportable 07/15/18 19:55 Dohle Bodies Not Reportable 07/15/18 19:55 Pelger-Huet Anomaly Not Reportable 07/15/18 19:55 Lindsay Rods Not Reportable 07/15/18 19:55 Platelet Estimate Appears normal 07/15/18 19:55 Clumped Platelets Not Reportable 07/15/18 19:55 Plt Clumps, EDTA Not Reportable 07/15/18 19:55 Large Platelets Not Reportable 07/15/18 19:55 Giant Platelets Not Reportable 07/15/18 19:55 Platelet Satelliting Not Reportable 07/15/18 19:55 Plt Morphology Comment Not Reportable 07/15/18 19:55 RBC Morphology Not Reportable 07/15/18 19:55 Dimorphic RBCs Not Reportable 07/15/18 19:55 Polychromasia Not Reportable 07/15/18 19:55 Hypochromasia Not Reportable 07/15/18 19:55 Poikilocytosis Few 07/15/18 19:55 Anisocytosis 1+ 07/15/18 19:55 Microcytosis Not Reportable 07/15/18 19:55 Macrocytosis Not Reportable 07/15/18 19:55 Spherocytes Not Reportable 07/15/18 19:55 Pappenheimer Bodies Not Reportable 07/15/18 19:55 Sickle Cells Not Reportable 07/15/18 19:55 Target Cells Not Reportable 07/15/18 19:55 Tear Drop Cells Not Reportable 07/15/18 19:55 Ovalocytes Not Reportable 07/15/18 19:55 Helmet Cells Not Reportable 07/15/18 19:55 [place] Bodies Not Reportable 07/15/18 19:55 Lavon Rings Not Reportable 07/15/18 19:55 [place] Cells Not Reportable 07/15/18 19:55 Bite Cells Not Reportable 07/15/18 19:55 Crenated Cell Not Reportable 07/15/18 19:55 Elliptocytes Not Reportable 07/15/18 19:55 Acanthocytes (Spur) Not Reportable 07/15/18 19:55 Rouleaux Not Reportable 07/15/18 19:55 Hemoglobin C Crystals Not Reportable 07/15/18 19:55 Schistocytes Rare 07/15/18 19:55 Malaria parasites Not Reportable 07/15/18 19:55 Emerson Bodies Not Reportable 07/15/18 19:55 Hem Pathologist Commnt No 07/15/18 19:55 D-Dimer 498.74 ng/mlDDU (0-234) H 07/16/18 16:00 POC ABG pH 7.388 (7.35-7.45) 07/20/18 11:28 POC ABG pCO2 71.2 (35-45) H 07/20/18 11:28 POC ABG pO2 77 (80-105) L 07/20/18 11:28 POC ABG HCO3 43.0 07/20/18 11:28 POC ABG Total CO2 45 07/20/18 11:28 POC ABG O2 Sat 94 07/20/18 11:28 POC ABG Base Excess 18 07/20/18 11:28 FiO2 30 % 07/20/18 11:28 Sodium 147 mmol/L (137-145) H 07/22/18 06:29 Potassium 3.3 mmol/L (3.6-5.0) L 07/22/18 06:29 Chloride 90.5 mmol/L (98-107) L 07/22/18 06:29 Carbon Dioxide 49 mmol/L (22-30) H* 07/22/18 06:29 Anion Gap 11 mmol/L 07/22/18 06:29 BUN 11 mg/dL (7-17) 07/22/18 06:29 Creatinine 0.3 mg/dL (0.7-1.2) L 07/22/18 06:29 Estimated GFR > 60 ml/min 07/22/18 06:29 BUN/Creatinine Ratio 37 % 07/22/18 06:29 Glucose 108 mg/dL (65-100) H 07/22/18 06:29 POC Glucose 114 (70-105) H 07/18/18 05:57 Lactic Acid 1.20 mmol/L (0.7-2.0) 07/16/18 16:00 Calcium 9.1 mg/dL (8.4-10.2) 07/22/18 06:29 C-Reactive Protein 1.60 mg/dL (0.00-1.30) H 07/16/18 16:00 Urine Color Yellow (Yellow) 07/16/18 05:45 Urine Turbidity Clear (Clear) 07/16/18 05:45 Urine pH 6.0 (5.0-7.0) 07/16/18 05:45 Ur Specific [place] 1.021 (1.003-1.030) 07/16/18 05:45 Urine Protein <15 mg/dl mg/dL (Negative) 07/16/18 05:45 Urine Glucose (UA) Neg mg/dL (Negative) 07/16/18 05:45 Urine Ketones Neg mg/dL (Negative) 07/16/18 05:45 Urine Blood Sm (Negative) 07/16/18 05:45 Urine Nitrite Neg (Negative) 07/16/18 05:45 Urine Bilirubin Neg (Negative) 07/16/18 05:45 Urine Urobilinogen < 2.0 mg/dL (<2.0) 07/16/18 05:45 Ur Leukocyte Esterase Neg (Negative) 07/16/18 05:45 Urine WBC (Auto) 3.0 /HPF (0.0-6.0) 07/16/18 05:45 Urine RBC (Auto) 13.0 /HPF (0.0-6.0) 07/16/18 05:45 Hyaline Casts 1 /LPF 07/16/18 05:45 Waxy Casts 9 /LPF 07/16/18 05:45 Urine Mucus Few /HPF 07/16/18 05:45 Nutrition/Malnutrition Assess - Dietary Evaluation Nutrition/Malnutrition Findings: Nutrition Notes Start: 07/16/18 15:21 Freq: Status: Active Protocol: Document 07/19/18 15:33 JARED (Rec: 07/19/18 15:39 MNDIOR [id number] 1) Nutrition Notes Initial or Follow up Reassessment Current Diagnosis COPD Diabetes Hypertension Respiratory Failure Current Diet TF - Vital AF 1.2 at 50ml/hr Labs/Tests No current available Pertinent Medications Reviewed Height 5 ft 5 in Weight 63.1 kg [place] Body Weight (kg) 56.81 BMI 23.1 Weight change and time frame Current wt obtained from bed scale Weight Status Appropriate Subjective/Other Information Pt tolerating TF at goal rate. She remains on vent support. Percent of energy/protein needs met: 100% energy and pro Burn Absent Trauma Absent #1 Nutrition Diagnosis Inadequate oral intake Diagnosis Progress(for reassessment Continues documentation) Is patient on ventilator? Yes Is Patient Ambulatory and/or Out of Bed No REE-([facility]-confined to bed) 1448.344 Calculation Used for Recommendations [facility] Additional Notes Pro needs 1.2-2g/k-126g/ day Fluid needs 1ml/kcal Nutrition Intervention Nutrition Support: Continue Vital AF 1.2 at 50ml/ hr with 100ml water flush q4h. Kcal 1,440 Protein (gm) 90 Carbohydrates (gm) 133 Fluid (mL) 973 Goal #1 TF tolerance Goal #2 TF to meet 90-100% energy and pro needs Anticipated Discharge Needs: Continue low-CHO TF formula if unable to advance diet Follow-Up By: 07/26/18 Additional Comments F/U: stable TF, wt, vent status
[2018-07-22] MEDS: LEVAQUIN PO SCH (11:49)
[2018-07-22] MEDS: SINGULAIR PO SCH (21:31)
[2018-07-23] MEDS: TYLENOL PO PRN ×3 (01:45→19:45)
[2018-07-23] MEDS: PROVENTIL IH SCH ×4 (02:32→21:35)
[2018-07-23] MEDS: APRESOLINE PO SCH ×3 (05:55→21:48)
[2018-07-23] MEDS: HEPARIN SUB-Q SCH ×2 (09:06→21:45)
[2018-07-23] MEDS: LEVAQUIN PO SCH (09:07)
[2018-07-23] MEDS: PROTONIX PO SCH (09:07)
[2018-07-23] MEDS: DELTASONE PO SCH (09:07)
[2018-07-23] MEDS: NORVASC PO SCH (09:07)
[2018-07-23] MEDS: PULMICORT IH SCH ×2 (10:07→21:34)
[2018-07-23] MEDS: BROVANA NEBU IH SCH ×2 (10:07→21:35)
--- NOTE | 2018-07-23 12:29 | Progress Note ---
Assessment and Plan Patient is a 63-year-old female with known history of hypertension, asthma, COPD on 3 L of home oxygen, previously intubated in the past admitted with shortness of breath and presumed sepsis although etiology not known at this time. On this admission Pateint was intubated for hypercarpenia and extubated on 07/20 Acute respiratory failure with hypercarpenia - Patient is on BiPAP, her CO2 this morning was 49 - Patient's complaining cough and yellowish sputum, chest x-rays normal, I empirically started her on Levaquin - Pulmonary following - Echocardiogram for right ventricular pressure evaluation for possible cor pulmonale SIRS; steroid-induced leukocytosis, tachypnea - Empirically on Levaquin Diabetes mellitus - Sliding-scale insulin Lactic acidosis - Resolved COPD with Exacerbation - On IV Solu-Medrol, duo nebs, nebulizer treatment, continue BiPAP GERD - On pantoprazole Moderate to Severe Protein calorie Malnutrition - Nutrition consult DVT and GI prophylaxis - Lovenox and Pepcid Disposition - Continue inpatient care Subjective Date of service: 07/23/18 Principal diagnosis: Ac on ch hypoxemic Resp failure; AE-COPD; RLL PNA (CAP); Hypercapnic Failur Interval history: Still having shortness of breath. On BiPAP. Objective - Exam Narrative Exam: Constitutional: Well-nourished well-developed. On BiPAP Head: Normocephalic atraumatic Eyes: Pupils are equal round and reactive to light Nose: No enlarged turbinates, no septal deviation. Mouth: Moist mucous membranes. Neck: Supple no thyromegaly. No bruit. No JVD Heart: Regular rate and rhythm, S1-S2 normal. No rubs murmurs or gallop Lungs: Decreased breath sounds bilaterally. no rales or rhonchi Abdomen: Soft, nontender. Bowel sound are present. Extremities: No edema, no cyanosis, no clubbing. Neuro: Alert oriented Oriented x3. No focal sensory or motor deficit. Skin: No rashes or hyperpigmented spots Musculoskeletal system: No joint pain or swelling Hematological: No petechia or subcutanous hemorrhages. Immunological: No multiple septic spots on the skin Lymphatic: No generalized lymphadenopathy Psychiatry: Euthymic. Calm. - Constitutional Vitals: Vital Signs - 12hr 07/23/18 07/23/18 07/23/18 01:45 02:41 02:45 Temperature Pulse Rate Pulse Rate [ 67 Anterior Bilateral Throughout] Respiratory 20 18 Rate Respiratory 20 Rate [Anterior Bilateral Throughout] Blood Pressure O2 Sat by Pulse Oximetry 07/23/18 07/23/18 07/23/18 02:56 04:22 05:55 Temperature 97.5 F L Pulse Rate 67 60 60 Pulse Rate [ Anterior Bilateral Throughout] Respiratory 20 16 Rate Respiratory Rate [Anterior Bilateral Throughout] Blood Pressure 167/79 167/79 O2 Sat by Pulse 96 99 Oximetry 07/23/18 07/23/18 07/23/18 08:32 10:06 10:08 Temperature 97.6 F Pulse Rate 72 104 H Pulse Rate [ 110 H Anterior Bilateral Throughout] Respiratory 16 16 Rate Respiratory 18 Rate [Anterior Bilateral Throughout] Blood Pressure 120/71 O2 Sat by Pulse 98 100 Oximetry 07/23/18 07/23/18 10:17 10:28 Temperature Pulse Rate Pulse Rate [ 110 H Anterior Bilateral Throughout] Respiratory Rate Respiratory 16 Rate [Anterior Bilateral Throughout] Blood Pressure O2 Sat by Pulse 99 Oximetry - Labs CBC & Chem 7: 07/22/18 05:36 07/22/18 06:29
--- NOTE | 2018-07-23 13:04 | Consultation ---
History of Present Illness Consult date: 07/23/18 Requesting physician: ANA CUMMINGS Reason for consult: COPD, other (acute respiratory failure requiring mechanical ventilation) History of present illness: 63 y/o female with known COPD, chronic respiratory failure and RACHEL admitted with acute on chronic respiratory failure and required intubation. Patient unable to tell who her pulm doc is so the other group was consulted. Once extubated she told them she follows with Mariano and we were consulted. Patient currently on floor on Venturi mask. Still some obvious dypsnea at rest noted but overall patient feels better. Past History Past Medical History: COPD, GERD, heart failure, hypertension Past Surgical History: No surgical history Social history: smoking Family history: no significant family history Medications and Allergies Allergies Allergy/AdvReac Type Severity Reaction Status Date / Time peanut Allergy Angioedema Verified 07/23/16 00:17 ipratropium bromide AdvReac Shortness Verified 09/11/13 07:39 [From Atrovent] of Breath Shellfish Allergy Unknown Uncoded 01/15/18 14:25 Home Medications Medication Instructions Recorded Confirmed Last Taken Type Carvedilol [Coreg] 6.25 mg PO BID #60 tablet 11/30/17 07/18/18 07/15/18 Rx Lisinopril [Zestril TAB] 5 mg PO QDAY #30 tablet 11/30/17 07/18/18 07/15/18 Rx Arformoterol Nebu [Brovana Nebu] 15 mcg IH Q12HRT #30 ml 01/17/18 07/18/18 07/15/18 Rx Budesonide [Pulmicort Respules] 0.5 mg IH Q12HRT #30 nebu 01/17/18 07/18/18 07/15/18 Rx Pantoprazole [Protonix TAB] 40 mg PO QDAY #30 tablet 01/17/18 07/18/18 07/15/18 Rx Albuterol Sulfate [Ventolin HFA] 2 puff IH Q4H PRN 02/17/18 07/18/18 07/15/18 History Prednisone 10 mg PO DAILY 02/17/18 07/18/18 07/15/18 History Montelukast [Singulair] 10 mg PO QHS #30 tablet 02/20/18 07/18/18 07/15/18 Rx levoFLOXacin [Levaquin TAB] 750 mg PO QDAY #5 tablet 02/20/18 07/18/18 07/15/18 Rx methylPREDNISolone [Medrol] 4 mg PO DAILY #21 tab.ds.pk 02/20/18 07/18/18 07/15/18 Rx Active Meds: Active Medications Acetaminophen (Tylenol) 650 mg PO Q6H PRN PRN Reason: Pain, Moderate (4-6) Last Admin: 07/23/18 09:07 Dose: 650 mg Documented by: Albuterol (Proventil) 2.5 mg IH Q6HRT [facility] Last Admin: 07/23/18 10:27 Dose: Not Given Documented by: Amlodipine Besylate (Norvasc) 10 mg PO QDAY [facility] Last Admin: 07/23/18 09:07 Dose: 10 mg Documented by: Arformoterol Tartrate (Brovana Nebu) 15 mcg IH Q12HRT [facility] Last Admin: 07/23/18 10:07 Dose: 15 mcg Documented by: Budesonide (Pulmicort) 0.5 mg IH Q12HRT [facility] Last Admin: 07/23/18 10:07 Dose: 0.5 mg Documented by: Heparin Sodium (Porcine) (Heparin) 5,000 unit SUB-Q Q12HR [facility] Last Admin: 07/23/18 09:06 Dose: 5,000 unit Documented by: Hydralazine HCl (Apresoline) 25 mg PO Q8HR [facility] Last Admin: 07/23/18 05:55 Dose: 25 mg Documented by: Levofloxacin (Levaquin) 750 mg PO Q24HR [facility] Last Admin: 07/23/18 09:07 Dose: 750 mg Documented by: Montelukast Sodium (Singulair) 10 mg PO QHS [facility] Last Admin: 07/22/18 21:31 Dose: 10 mg Documented by: Ondansetron HCl (Zofran) 4 mg IV Q8H PRN PRN Reason: Nausea And Vomiting Pantoprazole Sodium (Protonix) 40 mg PO DAILY [facility] Last Admin: 07/23/18 09:07 Dose: 40 mg Documented by: Prednisone (Deltasone) 10 mg PO QDAY [facility] Last Admin: 07/23/18 09:07 Dose: 10 mg Documented by: Quetiapine Fumarate (Seroquel) 50 mg PO BID [facility] Last Admin: 07/23/18 09:07 Dose: 50 mg Documented by: Review of Systems All systems: negative Physical Examination Vital signs: Vital Signs Pulse Resp Pulse Ox 128 H 21 98 07/15/18 19:22 07/15/18 19:22 07/15/18 19:22 General appearance: no acute distress ENT: oropharynx moist Neck: supple Ascultation: Bilateral: diminished breath sounds, wheezes Percussion: Bilateral: not dull Tactile fremitus: Bilateral: normal Gastrointestinal: normoactive bowel sounds, soft, non-distended Results - Laboratory Findings CBC and BMP: 07/24/18 13:13 07/24/18 13:13 ABG POC ABG pH 7.388 (7.35-7.45) 07/20/18 11:28 POC ABG pCO2 71.2 (35-45) H 07/20/18 11:28 POC ABG pO2 77 (80-105) L 07/20/18 11:28 POC ABG HCO3 43.0 07/20/18 11:28 POC ABG Total CO2 45 07/20/18 11:28 POC ABG O2 Sat 94 07/20/18 11:28 PT/INR, D-dimer D-Dimer 498.74 ng/mlDDU (0-234) H 07/16/18 16:00 Abnormal lab findings: Abnormal Labs 07/15/18 07/15/18 07/15/18 19:55 19:55 20:04 WBC 14.3 H RBC Hgb 14.6 H Hct 44.9 H MCV 106 H MCH 34 H Lymph % (Auto) Bureau % (Auto) Bureau # Seg Neutrophils % Seg Neuts % (Manual) 96.0 H Lymphocytes % (Manual) 3.0 L Seg Neutrophils # Seg Neutrophils # Man 13.7 H Lymphocytes # (Manual) 0.4 L D-Dimer POC ABG pH 7.105 L POC ABG pCO2 120.2 H POC ABG pO2 71 L Sodium Potassium Chloride Carbon Dioxide 36 H BUN Creatinine 0.6 L Glucose 172 H POC Glucose Lactic Acid Calcium C-Reactive Protein 07/15/18 07/15/18 07/15/18 20:46 21:18 22:05 WBC RBC Hgb Hct MCV MCH Lymph % (Auto) Bureau % (Auto) Bureau # Seg Neutrophils % Seg Neuts % (Manual) Lymphocytes % (Manual) Seg Neutrophils # Seg Neutrophils # Man Lymphocytes # (Manual) D-Dimer POC ABG pH 7.305 L POC ABG pCO2 64.5 H POC ABG pO2 220 H Sodium Potassium Chloride Carbon Dioxide BUN Creatinine Glucose POC Glucose Lactic Acid 2.40 H* 3.40 H* Calcium C-Reactive Protein 07/15/18 07/16/18 07/16/18 23:27 07:50 16:00 WBC RBC Hgb Hct MCV MCH Lymph % (Auto) Bureau % (Auto) Bureau # Seg Neutrophils % Seg Neuts % (Manual) Lymphocytes % (Manual) Seg Neutrophils # Seg Neutrophils # Man Lymphocytes # (Manual) D-Dimer 498.74 H POC ABG pH 7.328 L POC ABG pCO2 50.0 H POC ABG pO2 Sodium Potassium Chloride Carbon Dioxide BUN Creatinine Glucose POC Glucose Lactic Acid 3.60 H* Calcium C-Reactive Protein 07/16/18 07/17/18 07/17/18 16:00 03:11 03:11 WBC RBC 3.31 L Hgb Hct MCV 104 H MCH 34 H Lymph % (Auto) Bureau % (Auto) Bureau # Seg Neutrophils % Seg Neuts % (Manual) Lymphocytes % (Manual) Seg Neutrophils # Seg Neutrophils # Man Lymphocytes # (Manual) D-Dimer POC ABG pH POC ABG pCO2 POC ABG pO2 Sodium Potassium Chloride 108.8 H Carbon Dioxide BUN 21 H Creatinine 0.5 L Glucose 132 H POC Glucose Lactic Acid Calcium 8.0 L C-Reactive Protein 1.60 H 07/17/18 07/18/18 07/18/18 04:00 04:34 05:57 WBC RBC Hgb Hct MCV MCH Lymph % (Auto) Bureau % (Auto) Bureau # Seg Neutrophils % Seg Neuts % (Manual) Lymphocytes % (Manual) Seg Neutrophils # Seg Neutrophils # Man Lymphocytes # (Manual) D-Dimer POC ABG pH 7.280 L POC ABG pCO2 46.3 H 63.1 H POC ABG pO2 124 H Sodium Potassium Chloride Carbon Dioxide BUN Creatinine Glucose POC Glucose 114 H Lactic Acid Calcium C-Reactive Protein 07/18/18 07/18/18 07/19/18 11:22 18:03 05:34 WBC RBC Hgb Hct MCV MCH Lymph % (Auto) Bureau % (Auto) Bureau # Seg Neutrophils % Seg Neuts % (Manual) Lymphocytes % (Manual) Seg Neutrophils # Seg Neutrophils # Man Lymphocytes # (Manual) D-Dimer POC ABG pH 7.235 L 7.251 L 7.329 L POC ABG pCO2 75.6 H 76.3 H 64.7 H POC ABG pO2 67 L Sodium Potassium Chloride Carbon Dioxide BUN Creatinine Glucose POC Glucose Lactic Acid Calcium C-Reactive Protein 07/19/18 07/20/18 07/22/18 16:58 11:28 05:36 WBC 11.4 H RBC Hgb Hct MCV 103 H MCH 33 H Lymph % (Auto) 11.6 L Bureau % (Auto) 9.1 H Bureau # 1.0 H Seg Neutrophils % 78.9 H Seg Neuts % (Manual) Lymphocytes % (Manual) Seg Neutrophils # 9.0 H Seg Neutrophils # Man Lymphocytes # (Manual) D-Dimer POC ABG pH 7.336 L POC ABG pCO2 72.2 H 71.2 H POC ABG pO2 75 L 77 L Sodium Potassium Chloride Carbon Dioxide BUN Creatinine Glucose POC Glucose Lactic Acid Calcium C-Reactive Protein 07/22/18 07/22/18 05:36 06:29 WBC RBC Hgb Hct MCV MCH Lymph % (Auto) Bureau % (Auto) Bureau # Seg Neutrophils % Seg Neuts % (Manual) Lymphocytes % (Manual) Seg Neutrophils # Seg Neutrophils # Man Lymphocytes # (Manual) D-Dimer POC ABG pH POC ABG pCO2 POC ABG pO2 Sodium 149 H 147 H Potassium 3.2 L 3.3 L Chloride 92.1 L 90.5 L Carbon Dioxide 50 H* 49 H* BUN Creatinine 0.3 L 0.3 L Glucose 140 H 108 H POC Glucose Lactic Acid Calcium C-Reactive Protein Assessment and Plan 63 y/o female with acute on chronic respiratory failure secondary to COPD exacerbation and questionable compliance with outpatient therapy and smoking cessation. 1. May need to increase steroids 2. Continue current neb schedule 3. May consider a one time dose of lasix 4. Continue PPV at night.
[2018-07-23] MEDS: SINGULAIR PO SCH (21:45)
[2018-07-24] MEDS ORDERED: KCL IV ONE (01:00)
[2018-07-24] MEDS ORDERED: KCL 10MEQ/100ML 10 MEQ/100 ML BAG IV SCH (01:00)
[2018-07-24] MEDS ORDERED: NACL 0.9% IV ONE (01:00)
[2018-07-24] MEDS: PROVENTIL IH SCH ×4 (02:16→19:34)
[2018-07-24] MEDS: TYLENOL PO PRN ×3 (04:12→19:41)
[2018-07-24] MEDS: APRESOLINE PO SCH ×3 (05:48→21:33)
[2018-07-24] MEDS: PULMICORT IH SCH ×2 (10:20→19:36)
[2018-07-24] MEDS: BROVANA NEBU IH SCH ×2 (10:20→19:36)
--- NOTE | 2018-07-24 12:08 | Progress Note ---
Assessment and Plan Patient is a 63-year-old female with known history of hypertension, asthma, COPD on 3 L of home oxygen, previously intubated in the past admitted with shortness of breath and presumed sepsis although etiology not known at this time. On this admission Pateint was intubated for hypercarpenia and extubated on 07/20/18 Acute respiratory failure with hypercarpenia - Patient is on BiPAP, her CO2 this morning was 49 - Patient's complaining cough and yellowish sputum, chest x-rays normal, I empirically started her on Levaquin - Pulmonary following - Echocardiogram for right ventricular pressure evaluation for possible cor pulmonale SIRS; steroid-induced leukocytosis, tachypnea - Empirically on Levaquin Diabetes mellitus - Sliding-scale insulin Lactic acidosis - Resolved COPD with Exacerbation - On IV Solu-Medrol, duo nebs, nebulizer treatment, continue BiPAP GERD - On pantoprazole Moderate to Severe Protein calorie Malnutrition - Nutrition consult DVT and GI prophylaxis - Lovenox and Pepcid Disposition - Continue inpatient care Subjective Date of service: 07/24/18 Principal diagnosis: Ac on ch hypoxemic Resp failure; AE-COPD; RLL PNA (CAP); Hypercapnic Failur Interval history: Still having shortness of breath. On BiPAP. Denies any fever, no chest pain. Objective - Exam Narrative Exam: Constitutional: Well-nourished well-developed. On BiPAP Head: Normocephalic atraumatic Eyes: Pupils are equal round and reactive to light Nose: No enlarged turbinates, no septal deviation. Mouth: Moist mucous membranes. Neck: Supple no thyromegaly. No bruit. No JVD Heart: Regular rate and rhythm, S1-S2 normal. No rubs murmurs or gallop Lungs: Decreased breath sounds bilaterally. no rales or rhonchi Abdomen: Soft, nontender. Bowel sound are present. Extremities: No edema, no cyanosis, no clubbing. Neuro: Alert oriented Oriented x3. No focal sensory or motor deficit. Skin: No rashes or hyperpigmented spots Musculoskeletal system: No joint pain or swelling Hematological: No petechia or subcutanous hemorrhages. Immunological: No multiple septic spots on the skin Lymphatic: No generalized lymphadenopathy Psychiatry: Euthymic. Calm. - Constitutional Vitals: Vital Signs - 12hr 07/24/18 07/24/18 07/24/18 00:30 02:17 02:27 Pulse Rate 84 Pulse Rate [ 84 91 H Anterior Bilateral Throughout] Respiratory 24 Rate Respiratory 20 20 Rate [Anterior Bilateral Throughout] Blood Pressure O2 Sat by Pulse 99 Oximetry 07/24/18 07/24/18 07/24/18 02:52 04:12 05:12 Pulse Rate 92 H Pulse Rate [ Anterior Bilateral Throughout] Respiratory 32 H 18 18 Rate Respiratory Rate [Anterior Bilateral Throughout] Blood Pressure O2 Sat by Pulse 99 Oximetry 07/24/18 07/24/18 07/24/18 05:48 10:00 10:20 Pulse Rate 97 H Pulse Rate [ 95 H Anterior Bilateral Throughout] Respiratory Rate Respiratory 18 Rate [Anterior Bilateral Throughout] Blood Pressure 120/66 O2 Sat by Pulse 97 Oximetry 07/24/18 10:30 Pulse Rate Pulse Rate [ 98 H Anterior Bilateral Throughout] Respiratory Rate Respiratory 20 Rate [Anterior Bilateral Throughout] Blood Pressure O2 Sat by Pulse Oximetry - Labs CBC & Chem 7: 07/22/18 05:36 07/22/18 06:29
[2018-07-24] MEDS: NORVASC PO SCH (13:39)
[2018-07-24] MEDS: DELTASONE PO SCH (13:39)
[2018-07-24] MEDS: LEVAQUIN PO SCH (13:40)
[2018-07-24] MEDS: HEPARIN SUB-Q SCH ×2 (13:42→21:34)
[2018-07-24] MEDS: PROTONIX PO SCH (13:42)
[2018-07-24 14:09] LABS: Basophils % (Auto) 0.1 % (0.0-1.8); Eosinophils # (Auto) 0.1 K/mm3 (0.0-0.4); Eosinophils % (Auto) 0.7 % (0.0-4.3); Lymphocytes # (Auto) 1.7 K/mm3 (1.2-5.4); Lymphocytes % (Auto) 15.9 % (13.4-35.0); Mean Corpuscular HGB Conc 31 % (30-34); Mean Corpuscular Volume 105 fl (79-97); Monocytes # (Auto) 0.9 K/mm3 (0.0-0.8); Monocytes % (Auto) 8.3 % (0.0-7.3); Platelet Count 342 K/mm3 (140-440); Red Blood Count 4.44 M/mm3 (3.65-5.03); Red Cell Distribution Width 14.1 % (13.2-15.2)
[2018-07-24 14:10] LABS: Hematocrit 46.7 % (30.3-42.9); Hemoglobin 14.5 gm/dl (10.1-14.3)
[2018-07-24 14:24] LABS: BUN/Creatinine Ratio 18; Blood Urea Nitrogen 11 mg/dL (7-17); Calcium 8.7 mg/dL (8.4-10.2); Hemolysis Index 9
--- NOTE | 2018-07-24 14:49 | Progress Note ---
Assessment and Plan 63 y/o female with known COPD, questionable compliance with outpatient therapy and questionable smoking cessation admitted with acute exacerbation of COPD with intubation, now weaned to Venturi mask. 1. Known CHF, would ask whoever reads echo to specifically comment on right sided pressures and that you are looking for right sided heart failure. 2. Currently only on Prenisone 10, likely this decrease in steroid is too fast. Will increase back to 60 daily starting tomorrow. 3. In the past have treated with lasix intermittently. CXR never shows volume overload. If trouble weaning Venturi mask, could consider this. 4. Postive Pressure at night, every night 5. abx for a total of 7 days. Subjective Date of service: 07/24/18 Principal diagnosis: Ac on ch hypoxemic Resp failure; AE-COPD; RLL PNA (CAP); Hypercapnic Failur Interval history: No acute events. Remains on Venturi mask. Other vitals stable. IMS ordered echo to look for right sided heart failure. Patient had echo in November of 2017 that showed systolic heart failure, but it appears no pulmonary hypertension. Objective Vital Signs - 12hr 07/24/18 07/24/18 07/24/18 02:52 04:12 05:12 Pulse Rate 92 H Pulse Rate [ Anterior Bilateral Throughout] Respiratory 32 H 18 18 Rate Respiratory Rate [Anterior Bilateral Throughout] Blood Pressure O2 Sat by Pulse 99 Oximetry 07/24/18 07/24/18 07/24/18 05:48 10:00 10:20 Pulse Rate 97 H Pulse Rate [ 95 H Anterior Bilateral Throughout] Respiratory Rate Respiratory 18 Rate [Anterior Bilateral Throughout] Blood Pressure 120/66 O2 Sat by Pulse 97 Oximetry 07/24/18 07/24/18 07/24/18 10:30 13:39 14:04 Pulse Rate 90 96 H Pulse Rate [ 98 H Anterior Bilateral Throughout] Respiratory Rate Respiratory 20 Rate [Anterior Bilateral Throughout] Blood Pressure 136/77 138/77 O2 Sat by Pulse Oximetry Constitutional: appears uncomfortable, other (elderly thin looking AAF, normocephalic and atraumatic with increased resp effort) Eyes: non-icteric ENT: oropharynx moist, other Neck: supple, no lymphadenopathy, no JVD, other (No thyromegaly) Effort: mildly labored Ascultation: Bilateral: diminished breath sounds, wheezes (expiratory), rhonchi Percussion: Bilateral: not dull Cardiovascular: regular rate and rhythm Gastrointestinal: normoactive bowel sounds, soft, non-tender, non-distended Integumentary: rash Extremities: no cyanosis, no edema, pulses normal, no ischemia or petechiae Neurologic: normal mental status, non-focal exam, pupils equal and round, motor strength normal and Psychiatric: mood appropriate, affect normal CBC and BMP: 07/24/18 13:13 07/24/18 13:13 ABG, PT/INR, D-dimer: ABG POC ABG pH 7.388 (7.35-7.45) 07/20/18 11:28 POC ABG pCO2 71.2 (35-45) H 07/20/18 11:28 POC ABG pO2 77 (80-105) L 07/20/18 11:28 POC ABG HCO3 43.0 07/20/18 11:28 POC ABG Total CO2 45 07/20/18 11:28 POC ABG O2 Sat 94 07/20/18 11:28 PT/INR, D-dimer D-Dimer 498.74 ng/mlDDU (0-234) H 07/16/18 16:00 Abnormal lab findings: Abnormal Labs 07/15/18 07/15/18 07/15/18 19:55 19:55 20:04 WBC 14.3 H RBC Hgb 14.6 H Hct 44.9 H MCV 106 H MCH 34 H Lymph % (Auto) [place] % (Auto) [place] # Seg Neutrophils % Seg Neuts % (Manual) 96.0 H Lymphocytes % (Manual) 3.0 L Seg Neutrophils # Seg Neutrophils # Man 13.7 H Lymphocytes # (Manual) 0.4 L D-Dimer POC ABG pH 7.105 L POC ABG pCO2 120.2 H POC ABG pO2 71 L Sodium Potassium Chloride Carbon Dioxide 36 H BUN Creatinine 0.6 L Glucose 172 H POC Glucose Lactic Acid Calcium C-Reactive Protein 07/15/18 07/15/18 07/15/18 20:46 21:18 22:05 WBC RBC Hgb Hct MCV MCH Lymph % (Auto) [place] % (Auto) [place] # Seg Neutrophils % Seg Neuts % (Manual) Lymphocytes % (Manual) Seg Neutrophils # Seg Neutrophils # Man Lymphocytes # (Manual) D-Dimer POC ABG pH 7.305 L POC ABG pCO2 64.5 H POC ABG pO2 220 H Sodium Potassium Chloride Carbon Dioxide BUN Creatinine Glucose POC Glucose Lactic Acid 2.40 H* 3.40 H* Calcium C-Reactive Protein 07/15/18 07/16/18 07/16/18 23:27 07:50 16:00 WBC RBC Hgb Hct MCV MCH Lymph % (Auto) [place] % (Auto) [place] # Seg Neutrophils % Seg Neuts % (Manual) Lymphocytes % (Manual) Seg Neutrophils # Seg Neutrophils # Man Lymphocytes # (Manual) D-Dimer 498.74 H POC ABG pH 7.328 L POC ABG pCO2 50.0 H POC ABG pO2 Sodium Potassium Chloride Carbon Dioxide BUN Creatinine Glucose POC Glucose Lactic Acid 3.60 H* Calcium C-Reactive Protein 07/16/18 07/17/18 07/17/18 16:00 03:11 03:11 WBC RBC 3.31 L Hgb Hct MCV 104 H MCH 34 H Lymph % (Auto) [place] % (Auto) [place] # Seg Neutrophils % Seg Neuts % (Manual) Lymphocytes % (Manual) Seg Neutrophils # Seg Neutrophils # Man Lymphocytes # (Manual) D-Dimer POC ABG pH POC ABG pCO2 POC ABG pO2 Sodium Potassium Chloride 108.8 H Carbon Dioxide BUN 21 H Creatinine 0.5 L Glucose 132 H POC Glucose Lactic Acid Calcium 8.0 L C-Reactive Protein 1.60 H 07/17/18 07/18/18 07/18/18 04:00 04:34 05:57 WBC RBC Hgb Hct MCV MCH Lymph % (Auto) [place] % (Auto) [place] # Seg Neutrophils % Seg Neuts % (Manual) Lymphocytes % (Manual) Seg Neutrophils # Seg Neutrophils # Man Lymphocytes # (Manual) D-Dimer POC ABG pH 7.280 L POC ABG pCO2 46.3 H 63.1 H POC ABG pO2 124 H Sodium Potassium Chloride Carbon Dioxide BUN Creatinine Glucose POC Glucose 114 H Lactic Acid Calcium C-Reactive Protein 07/18/18 07/18/18 07/19/18 11:22 18:03 05:34 WBC RBC Hgb Hct MCV MCH Lymph % (Auto) [place] % (Auto) [place] # Seg Neutrophils % Seg Neuts % (Manual) Lymphocytes % (Manual) Seg Neutrophils # Seg Neutrophils # Man Lymphocytes # (Manual) D-Dimer POC ABG pH 7.235 L 7.251 L 7.329 L POC ABG pCO2 75.6 H 76.3 H 64.7 H POC ABG pO2 67 L Sodium Potassium Chloride Carbon Dioxide BUN Creatinine Glucose POC Glucose Lactic Acid Calcium C-Reactive Protein 07/19/18 07/20/18 07/22/18 16:58 11:28 05:36 WBC 11.4 H RBC Hgb Hct MCV 103 H MCH 33 H Lymph % (Auto) 11.6 L [place] % (Auto) 9.1 H Bath # 1.0 H Seg Neutrophils % 78.9 H Seg Neuts % (Manual) Lymphocytes % (Manual) Seg Neutrophils # 9.0 H Seg Neutrophils # Man Lymphocytes # (Manual) D-Dimer POC ABG pH 7.336 L POC ABG pCO2 72.2 H 71.2 H POC ABG pO2 75 L 77 L Sodium Potassium Chloride Carbon Dioxide BUN Creatinine Glucose POC Glucose Lactic Acid Calcium C-Reactive Protein 07/22/18 07/22/18 07/24/18 05:36 06:29 13:13 WBC RBC Hgb 14.5 H Hct 46.7 H D MCV 105 H MCH 33 H Lymph % (Auto) [place] % (Auto) 8.3 H Bath # 0.9 H Seg Neutrophils % 75.0 H Seg Neuts % (Manual) Lymphocytes % (Manual) Seg Neutrophils # 8.1 H Seg Neutrophils # Man Lymphocytes # (Manual) D-Dimer POC ABG pH POC ABG pCO2 POC ABG pO2 Sodium 149 H 147 H Potassium 3.2 L 3.3 L Chloride 92.1 L 90.5 L Carbon Dioxide 50 H* 49 H* BUN Creatinine 0.3 L 0.3 L Glucose 140 H 108 H POC Glucose Lactic Acid Calcium C-Reactive Protein 07/24/18 13:13 WBC RBC Hgb Hct MCV MCH Lymph % (Auto) [place] % (Auto) [place] # Seg Neutrophils % Seg Neuts % (Manual) Lymphocytes % (Manual) Seg Neutrophils # Seg Neutrophils # Man Lymphocytes # (Manual) D-Dimer POC ABG pH POC ABG pCO2 POC ABG pO2 Sodium 148 H Potassium Chloride 97.8 L Carbon Dioxide 41 H* D BUN Creatinine 0.6 L D Glucose 134 H POC Glucose Lactic Acid Calcium C-Reactive Protein Allied health notes reviewed: RT
[2018-07-24] MEDS ORDERED: DELTASONE PO ONE (16:00)
[2018-07-24] MEDS: SINGULAIR PO SCH (21:32)
[2018-07-25] MEDS: PROVENTIL IH SCH ×4 (02:43→20:28)
[2018-07-25] MEDS: TYLENOL PO PRN ×3 (05:58→19:36)
[2018-07-25] MEDS: APRESOLINE PO SCH ×3 (05:58→22:25)
[2018-07-25 06:10] LABS: Basophils # (Auto) 0.1 K/mm3 (0.0-0.1); Basophils % (Auto) 0.4 % (0.0-1.8); Hematocrit 41.8 % (30.3-42.9); Hemoglobin 13.1 gm/dl (10.1-14.3); Lymphocytes # (Auto) 0.9 K/mm3 (1.2-5.4); Lymphocytes % (Auto) 6.5 % (13.4-35.0); Mean Corpuscular HGB Conc 31 % (30-34); Mean Corpuscular Volume 103 fl (79-97); Monocytes # (Auto) 0.7 K/mm3 (0.0-0.8); Monocytes % (Auto) 4.8 % (0.0-7.3); Platelet Count 337 K/mm3 (140-440); Red Blood Count 4.08 M/mm3 (3.65-5.03); Red Cell Distribution Width 13.5 % (13.2-15.2)
[2018-07-25 06:33] LABS: BUN/Creatinine Ratio 43; Blood Urea Nitrogen 13 mg/dL (7-17)
[2018-07-25 06:34] LABS: Alanine Aminotransferase 97 units/L (7-56); Albumin 3.3 g/dL (3.9-5); Calcium 8.9 mg/dL (8.4-10.2); Hemolysis Index 8
--- NOTE | 2018-07-25 09:17 | Progress Note ---
Assessment and Plan Acute cardiorespiratory failure episode. Acute exacerbation chronic bronchitis Advanced emphysema Echocardiogram with normal ejection fraction noted Tobacco abuse Recommendations Ambulate patient and monitor oximetry. Add portable oxygen 2 L/m if oximetry below 89% on room air. Update influenza and pneumonia vaccination, if not completed already. Candidate for pulmonary rehabilitation Prednisone from 40-60 mg by mouth daily with taper in the next 7 days. The patient does use a baseline prednisone dose of 10 mg as outpatient Outpatient pulmonary evaluation, PFT workup for COPD severity stratification Inhaler therapy including LAMA, LABA/ICS therapy, per GOLD guidelines Nutritional support. Avoid malnutrition, BMI under 19 Continue BiPAP at home Patient is complaining that her oxygen unit on a home appears to be failing or not providing adequate output. Recommend this to be reviewed with field nurse case manager so she can have proper oxygen support prior to discharge Subjective Date of service: 07/25/18 Principal diagnosis: Ac on ch hypoxemic Resp failure; AE-COPD; RLL PNA (CAP); Hypercapnic Failur Interval history: Patient reported that she slept well last night. Slept with her BiPAP on. No shortness of breath this morning. No fever or chest pain Objective Vital Signs - 12hr 07/24/18 07/24/18 07/25/18 21:33 23:30 02:44 Temperature 98.0 F Pulse Rate 115 H 98 H Pulse Rate [ 76 Posterior Bilateral Throughout] Respiratory 28 H Rate Respiratory 18 Rate [Posterior Bilateral Throughout] Blood Pressure 166/69 137/57 O2 Sat by Pulse 99 Oximetry 07/25/18 07/25/18 07/25/18 05:10 05:58 06:58 Temperature 97.9 F Pulse Rate 75 75 Pulse Rate [ Posterior Bilateral Throughout] Respiratory 18 20 18 Rate Respiratory Rate [Posterior Bilateral Throughout] Blood Pressure 137/74 137/74 O2 Sat by Pulse 97 Oximetry 07/25/18 07/25/18 08:28 08:29 Temperature 97.8 F Pulse Rate 79 Pulse Rate [ Posterior Bilateral Throughout] Respiratory 18 Rate Respiratory Rate [Posterior Bilateral Throughout] Blood Pressure 123/57 O2 Sat by Pulse 95 Oximetry Constitutional: no acute distress, alert Eyes: non-icteric ENT: oropharynx moist Neck: supple, no JVD Effort: mildly labored Ascultation: Bilateral: diminished breath sounds Percussion: Bilateral: not dull Cardiovascular: regular rate and rhythm Gastrointestinal: normoactive bowel sounds, soft, non-distended Integumentary: rash Extremities: no cyanosis, no edema, pulses normal, no ischemia or petechiae Neurologic: normal mental status, non-focal exam, pupils equal and round, motor strength normal and Psychiatric: mood appropriate, affect normal CBC and BMP: 07/25/18 05:48 07/25/18 05:48 ABG, PT/INR, D-dimer: ABG POC ABG pH 7.388 (7.35-7.45) 07/20/18 11:28 POC ABG pCO2 71.2 (35-45) H 07/20/18 11:28 POC ABG pO2 77 (80-105) L 07/20/18 11:28 POC ABG HCO3 43.0 07/20/18 11:28 POC ABG Total CO2 45 07/20/18 11:28 POC ABG O2 Sat 94 07/20/18 11:28 PT/INR, D-dimer D-Dimer 498.74 ng/mlDDU (0-234) H 07/16/18 16:00 Abnormal lab findings: Abnormal Labs 07/15/18 07/15/18 07/15/18 19:55 19:55 20:04 WBC 14.3 H RBC Hgb 14.6 H Hct 44.9 H MCV 106 H MCH 34 H Lymph % (Auto) [place] % (Auto) Lymph # [place] # Seg Neutrophils % Seg Neuts % (Manual) 96.0 H Lymphocytes % (Manual) 3.0 L Seg Neutrophils # Seg Neutrophils # Man 13.7 H Lymphocytes # (Manual) 0.4 L D-Dimer POC ABG pH 7.105 L POC ABG pCO2 120.2 H POC ABG pO2 71 L Sodium Potassium Chloride Carbon Dioxide 36 H BUN Creatinine 0.6 L Glucose 172 H POC Glucose Lactic Acid Calcium ALT C-Reactive Protein Total Protein Albumin 07/15/18 07/15/18 07/15/18 20:46 21:18 22:05 WBC RBC Hgb Hct MCV MCH Lymph % (Auto) [place] % (Auto) Lymph # [place] # Seg Neutrophils % Seg Neuts % (Manual) Lymphocytes % (Manual) Seg Neutrophils # Seg Neutrophils # Man Lymphocytes # (Manual) D-Dimer POC ABG pH 7.305 L POC ABG pCO2 64.5 H POC ABG pO2 220 H Sodium Potassium Chloride Carbon Dioxide BUN Creatinine Glucose POC Glucose Lactic Acid 2.40 H* 3.40 H* Calcium ALT C-Reactive Protein Total Protein Albumin 07/15/18 07/16/18 07/16/18 23:27 07:50 16:00 WBC RBC Hgb Hct MCV MCH Lymph % (Auto) [place] % (Auto) Lymph # [place] # Seg Neutrophils % Seg Neuts % (Manual) Lymphocytes % (Manual) Seg Neutrophils # Seg Neutrophils # Man Lymphocytes # (Manual) D-Dimer 498.74 H POC ABG pH 7.328 L POC ABG pCO2 50.0 H POC ABG pO2 Sodium Potassium Chloride Carbon Dioxide BUN Creatinine Glucose POC Glucose Lactic Acid 3.60 H* Calcium ALT C-Reactive Protein Total Protein Albumin 07/16/18 07/17/18 07/17/18 16:00 03:11 03:11 WBC RBC 3.31 L Hgb Hct MCV 104 H MCH 34 H Lymph % (Auto) [place] % (Auto) Lymph # [place] # Seg Neutrophils % Seg Neuts % (Manual) Lymphocytes % (Manual) Seg Neutrophils # Seg Neutrophils # Man Lymphocytes # (Manual) D-Dimer POC ABG pH POC ABG pCO2 POC ABG pO2 Sodium Potassium Chloride 108.8 H Carbon Dioxide BUN 21 H Creatinine 0.5 L Glucose 132 H POC Glucose Lactic Acid Calcium 8.0 L ALT C-Reactive Protein 1.60 H Total Protein Albumin 07/17/18 07/18/18 07/18/18 04:00 04:34 05:57 WBC RBC Hgb Hct MCV MCH Lymph % (Auto) [place] % (Auto) Lymph # [place] # Seg Neutrophils % Seg Neuts % (Manual) Lymphocytes % (Manual) Seg Neutrophils # Seg Neutrophils # Man Lymphocytes # (Manual) D-Dimer POC ABG pH 7.280 L POC ABG pCO2 46.3 H 63.1 H POC ABG pO2 124 H Sodium Potassium Chloride Carbon Dioxide BUN Creatinine Glucose POC Glucose 114 H Lactic Acid Calcium ALT C-Reactive Protein Total Protein Albumin 07/18/18 07/18/18 07/19/18 11:22 18:03 05:34 WBC RBC Hgb Hct MCV MCH Lymph % (Auto) [place] % (Auto) Lymph # [place] # Seg Neutrophils % Seg Neuts % (Manual) Lymphocytes % (Manual) Seg Neutrophils # Seg Neutrophils # Man Lymphocytes # (Manual) D-Dimer POC ABG pH 7.235 L 7.251 L 7.329 L POC ABG pCO2 75.6 H 76.3 H 64.7 H POC ABG pO2 67 L Sodium Potassium Chloride Carbon Dioxide BUN Creatinine Glucose POC Glucose Lactic Acid Calcium ALT C-Reactive Protein Total Protein Albumin 07/19/18 07/20/18 07/22/18 16:58 11:28 05:36 WBC 11.4 H RBC Hgb Hct MCV 103 H MCH 33 H Lymph % (Auto) 11.6 L [place] % (Auto) 9.1 H Lymph # [place] # 1.0 H Seg Neutrophils % 78.9 H Seg Neuts % (Manual) Lymphocytes % (Manual) Seg Neutrophils # 9.0 H Seg Neutrophils # Man Lymphocytes # (Manual) D-Dimer POC ABG pH 7.336 L POC ABG pCO2 72.2 H 71.2 H POC ABG pO2 75 L 77 L Sodium Potassium Chloride Carbon Dioxide BUN Creatinine Glucose POC Glucose Lactic Acid Calcium ALT C-Reactive Protein Total Protein Albumin 07/22/18 07/22/18 07/24/18 05:36 06:29 13:13 WBC RBC Hgb 14.5 H Hct 46.7 H D MCV 105 H MCH 33 H Lymph % (Auto) [place] % (Auto) 8.3 H Lymph # [place] # 0.9 H Seg Neutrophils % 75.0 H Seg Neuts % (Manual) Lymphocytes % (Manual) Seg Neutrophils # 8.1 H Seg Neutrophils # Man Lymphocytes # (Manual) D-Dimer POC ABG pH POC ABG pCO2 POC ABG pO2 Sodium 149 H 147 H Potassium 3.2 L 3.3 L Chloride 92.1 L 90.5 L Carbon Dioxide 50 H* 49 H* BUN Creatinine 0.3 L 0.3 L Glucose 140 H 108 H POC Glucose Lactic Acid Calcium ALT C-Reactive Protein Total Protein Albumin 07/24/18 07/25/18 07/25/18 13:13 05:48 05:48 WBC 14.4 H RBC Hgb Hct MCV 103 H MCH Lymph % (Auto) 6.5 L [place] % (Auto) Lymph # 0.9 L [place] # Seg Neutrophils % 88.3 H Seg Neuts % (Manual) Lymphocytes % (Manual) Seg Neutrophils # 12.7 H Seg Neutrophils # Man Lymphocytes # (Manual) D-Dimer POC ABG pH POC ABG pCO2 POC ABG pO2 Sodium 148 H Potassium Chloride 97.8 L Carbon Dioxide 41 H* D 41 H* BUN Creatinine 0.6 L D 0.3 L Glucose 134 H POC Glucose Lactic Acid Calcium ALT 97 H C-Reactive Protein Total Protein 5.9 L Albumin 3.3 L Chest x-ray: report reviewed, image reviewed Allied health notes reviewed: RT
[2018-07-25] MEDS: PROTONIX PO SCH (09:20)
[2018-07-25] MEDS: LEVAQUIN PO SCH (09:20)
[2018-07-25] MEDS: NORVASC PO SCH (09:20)
[2018-07-25] MEDS: DELTASONE PO SCH (09:21)
[2018-07-25] MEDS: HEPARIN SUB-Q SCH ×2 (09:22→22:26)
[2018-07-25] MEDS: PULMICORT IH SCH ×2 (09:50→20:28)
[2018-07-25] MEDS: BROVANA NEBU IH SCH ×2 (09:50→20:29)
--- NOTE | 2018-07-25 15:19 | Progress Note ---
Assessment and Plan Assessment and plan: Patient is a 63-year-old female with known history of hypertension, asthma, COPD on 3 L of home oxygen, previously intubated in the past admitted with shortness of breath and presumed sepsis although etiology not known at this time. On this admission Pateint was intubated for hypercarpenia and extubated on 07/20 Acute respiratory failure with hypercarpenia - Patient is on BiPAP, her CO2 this morning was 49 - Patient's complaining cough and yellowish sputum, chest x-rays normal - Patient is on levaquin - Pulmonary following SIRS; steroid-induced leukocytosis, tachypnea - Empirically on Levaquin Diabetes mellitus - Sliding-scale insulin Lactic acidosis - Resolved COPD with Exacerbation - On IV Solu-Medrol, duo nebs, nebulizer treatment, continue BiPAP GERD - On pantoprazole Moderate to Severe Protein calorie Malnutrition - Nutrition consult Disposition - Discussed with caseworker protective services to arrange her oxygen. She said she had one at home but wants to change the company. - Possible DXC tomorrow. History Interval history: Patient was seen and evaluated this morning, patient was extubated on 07/20/18. Patient was complaining shortness of breath. Hospitalist Physical - Physical exam Narrative exam: patient is on BIPAP, couldn't finish a sentence with out a break. The patient appeared well nourished and normally developed. Vital signs as documented. Head exam is unremarkable. No scleral icterus . Neck is without jugular venous distension, thyromegaly, or carotid bruits. Lungs decreased air entry on the right basilar area, wheezing all over the chest, poor air flow. Cardiac exam reveals regular rate and Rhythm. Abdominal exam reveals normal bowel sounds. Extremities are nonedematous and both femoral and pedal pulses are normal. BEAUTICIAN APPRENTICE: Alert and oriented 3 . - Constitutional Vitals: Temp Pulse Resp BP Pulse Ox 98.5 F 101 H 18 112/57 98 07/25/18 11:29 07/25/18 14:25 07/25/18 14:25 07/25/18 13:22 07/25/18 14:19 Results - Labs CBC & Chem 7: 07/25/18 05:48 07/25/18 05:48 Labs: Laboratory Last Values WBC 14.4 K/mm3 (4.5-11.0) H 07/25/18 05:48 RBC 4.08 M/mm3 (3.65-5.03) 07/25/18 05:48 Hgb 13.1 gm/dl (10.1-14.3) 07/25/18 05:48 Hct 41.8 % (30.3-42.9) 07/25/18 05:48 MCV 103 fl (79-97) H 07/25/18 05:48 MCH 32 pg (28-32) 07/25/18 05:48 MCHC 31 % (30-34) 07/25/18 05:48 RDW 13.5 % (13.2-15.2) 07/25/18 05:48 Plt Count 337 K/mm3 (140-440) 07/25/18 05:48 Lymph % (Auto) 6.5 % (13.4-35.0) L 07/25/18 05:48 [place] % (Auto) 4.8 % (0.0-7.3) 07/25/18 05:48 Eos % (Auto) 0.0 % (0.0-4.3) 07/25/18 05:48 Baso % (Auto) 0.4 % (0.0-1.8) 07/25/18 05:48 Lymph # 0.9 K/mm3 (1.2-5.4) L 07/25/18 05:48 [place] # 0.7 K/mm3 (0.0-0.8) 07/25/18 05:48 Eos # 0.0 K/mm3 (0.0-0.4) 07/25/18 05:48 Baso # 0.1 K/mm3 (0.0-0.1) 07/25/18 05:48 Add Manual Diff Complete 07/15/18 19:55 Total Counted 100 07/15/18 19:55 Seg Neutrophils % 88.3 % (40.0-70.0) H 07/25/18 05:48 Seg Neuts % (Manual) 96.0 % (40.0-70.0) H 07/15/18 19:55 Band Neutrophils % 0 % 07/15/18 19:55 Lymphocytes % (Manual) 3.0 % (13.4-35.0) L 07/15/18 19:55 Reactive Lymphs % (Man) 0 % 07/15/18 19:55 Monocytes % (Manual) 1.0 % (0.0-7.3) 07/15/18 19:55 Eosinophils % (Manual) 0 % (0.0-4.3) 07/15/18 19:55 Basophils % (Manual) 0 % (0.0-1.8) 07/15/18 19:55 Metamyelocytes % 0 % 07/15/18 19:55 Myelocytes % 0 % 07/15/18 19:55 Promyelocytes % 0 % 07/15/18 19:55 Blast Cells % 0 % 07/15/18 19:55 Nucleated RBC % Not Reportable 07/15/18 19:55 Seg Neutrophils # 12.7 K/mm3 (1.8-7.7) H 07/25/18 05:48 Seg Neutrophils # Man 13.7 K/mm3 (1.8-7.7) H 07/15/18 19:55 Band Neutrophils # 0.0 K/mm3 07/15/18 19:55 Lymphocytes # (Manual) 0.4 K/mm3 (1.2-5.4) L 07/15/18 19:55 Abs React Lymphs (Man) 0.0 K/mm3 07/15/18 19:55 Monocytes # (Manual) 0.1 K/mm3 (0.0-0.8) 07/15/18 19:55 Eosinophils # (Manual) 0.0 K/mm3 (0.0-0.4) 07/15/18 19:55 Basophils # (Manual) 0.0 K/mm3 (0.0-0.1) 07/15/18 19:55 Metamyelocytes # 0.0 K/mm3 07/15/18 19:55 Myelocytes # 0.0 K/mm3 07/15/18 19:55 Promyelocytes # 0.0 K/mm3 07/15/18 19:55 Blast Cells # 0.0 K/mm3 07/15/18 19:55 WBC Morphology Not Reportable 07/15/18 19:55 Hypersegmented Neuts Not Reportable 07/15/18 19:55 Hyposegmented Neuts Not Reportable 07/15/18 19:55 Hypogranular Neuts Not Reportable 07/15/18 19:55 Smudge Cells Not Reportable 07/15/18 19:55 Toxic Granulation Not Reportable 07/15/18 19:55 Toxic Vacuolation Not Reportable 07/15/18 19:55 Dohle Bodies Not Reportable 07/15/18 19:55 Pel[place]-Huet Anomaly Not Reportable 07/15/18 19:55 Lindsay Rods Not Reportable 07/15/18 19:55 Platelet Estimate Appears normal 07/15/18 19:55 Clumped Platelets Not Reportable 07/15/18 19:55 Plt Clumps, EDTA Not Reportable 07/15/18 19:55 Large Platelets Not Reportable 07/15/18 19:55 Giant Platelets Not Reportable 07/15/18 19:55 Platelet Satelliting Not Reportable 07/15/18 19:55 Plt Morphology Comment Not Reportable 07/15/18 19:55 RBC Morphology Not Reportable 07/15/18 19:55 Dimorphic RBCs Not Reportable 07/15/18 19:55 Polychromasia Not Reportable 07/15/18 19:55 Hypochromasia Not Reportable 07/15/18 19:55 Poikilocytosis Few 07/15/18 19:55 Anisocytosis 1+ 07/15/18 19:55 Microcytosis Not Reportable 07/15/18 19:55 Macrocytosis Not Reportable 07/15/18 19:55 Spherocytes Not Reportable 07/15/18 19:55 Pappenheimer Bodies Not Reportable 07/15/18 19:55 Sickle Cells Not Reportable 07/15/18 19:55 Target Cells Not Reportable 07/15/18 19:55 Tear Drop Cells Not Reportable 07/15/18 19:55 Ovalocytes Not Reportable 07/15/18 19:55 Helmet Cells Not Reportable 07/15/18 19:55 [place] Bodies Not Reportable 07/15/18 19:55 [place] Rings Not Reportable 07/15/18 19:55 [place] Cells Not Reportable 07/15/18 19:55 Bite Cells Not Reportable 07/15/18 19:55 Crenated Cell Not Reportable 07/15/18 19:55 Elliptocytes Not Reportable 07/15/18 19:55 Acanthocytes (Spur) Not Reportable 07/15/18 19:55 Rouleaux Not Reportable 07/15/18 19:55 Hemoglobin C Crystals Not Reportable 07/15/18 19:55 Schistocytes Rare 07/15/18 19:55 Malaria parasites Not Reportable 07/15/18 19:55 [place] Bodies Not Reportable 07/15/18 19:55 Hem Pathologist Commnt No 07/15/18 19:55 D-Dimer 498.74 ng/mlDDU (0-234) H 07/16/18 16:00 POC ABG pH 7.388 (7.35-7.45) 07/20/18 11:28 POC ABG pCO2 71.2 (35-45) H 07/20/18 11:28 POC ABG pO2 77 (80-105) L 07/20/18 11:28 POC ABG HCO3 43.0 07/20/18 11:28 POC ABG Total CO2 45 07/20/18 11:28 POC ABG O2 Sat 94 07/20/18 11:28 POC ABG Base Excess 18 07/20/18 11:28 FiO2 30 % 07/20/18 11:28 Sodium 144 mmol/L (137-145) 07/25/18 05:48 Potassium 4.2 mmol/L (3.6-5.0) 07/25/18 05:48 Chloride 98.0 mmol/L (98-107) 07/25/18 05:48 Carbon Dioxide 41 mmol/L (22-30) H* 07/25/18 05:48 Anion Gap 9 mmol/L 07/25/18 05:48 BUN 13 mg/dL (7-17) 07/25/18 05:48 Creatinine 0.3 mg/dL (0.7-1.2) L 07/25/18 05:48 Estimated GFR > 60 ml/min 07/25/18 05:48 BUN/Creatinine Ratio 43 % 07/25/18 05:48 Glucose 86 mg/dL (65-100) 07/25/18 05:48 POC Glucose 114 (70-105) H 07/18/18 05:57 Lactic Acid 1.20 mmol/L (0.7-2.0) 07/16/18 16:00 Calcium 8.9 mg/dL (8.4-10.2) 07/25/18 05:48 Total Bilirubin 0.30 mg/dL (0.1-1.2) 07/25/18 05:48 AST 28 units/L (5-40) 07/25/18 05:48 ALT 97 units/L (7-56) H 07/25/18 05:48 Alkaline Phosphatase 90 units/L (35-129) 07/25/18 05:48 C-Reactive Protein 1.60 mg/dL (0.00-1.30) H 07/16/18 16:00 Total Protein 5.9 g/dL (6.3-8.2) L 07/25/18 05:48 Albumin 3.3 g/dL (3.9-5) L 07/25/18 05:48 Albumin/Globulin Ratio 1.3 % 07/25/18 05:48 Urine Color Yellow (Yellow) 07/16/18 05:45 Urine Turbidity Clear (Clear) 07/16/18 05:45 Urine pH 6.0 (5.0-7.0) 07/16/18 05:45 Ur Specific [place] 1.021 (1.003-1.030) 07/16/18 05:45 Urine Protein <15 mg/dl mg/dL (Negative) 07/16/18 05:45 Urine Glucose (UA) Neg mg/dL (Negative) 07/16/18 05:45 Urine Ketones Neg mg/dL (Negative) 07/16/18 05:45 Urine Blood Sm (Negative) 07/16/18 05:45 Urine Nitrite Neg (Negative) 07/16/18 05:45 Urine Bilirubin Neg (Negative) 07/16/18 05:45 Urine Urobilinogen < 2.0 mg/dL (<2.0) 07/16/18 05:45 Ur Leukocyte Esterase Neg (Negative) 07/16/18 05:45 Urine WBC (Auto) 3.0 /HPF (0.0-6.0) 07/16/18 05:45 Urine RBC (Auto) 13.0 /HPF (0.0-6.0) 07/16/18 05:45 Hyaline Casts 1 /LPF 07/16/18 05:45 Waxy Casts 9 /LPF 07/16/18 05:45 Urine Mucus Few /HPF 07/16/18 05:45 Nutrition/Malnutrition Assess - Dietary Evaluation Nutrition/Malnutrition Findings: Nutrition Notes Start: 07/16/18 15:21 Freq: Status: Active Protocol: Document 07/19/18 15:33 NHALL (Rec: 07/19/18 15:39 JARED [email or web address]) Nutrition Notes Initial or Follow up Reassessment Current Diagnosis COPD Diabetes Hypertension Respiratory Failure Current Diet TF - Vital AF 1.2 at 50ml/hr Labs/Tests No current available Pertinent Medications Reviewed Height 5 ft 5 in Weight 63.1 kg [place] Body Weight (kg) 56.81 BMI 23.1 Weight change and time frame Current wt obtained from bed scale Weight Status Appropriate Subjective/Other Information Pt tolerating TF at goal rate. She remains on vent support. Percent of energy/protein needs met: 100% energy and pro Burn Absent Trauma Absent #1 Nutrition Diagnosis Inadequate oral intake Diagnosis Progress(for reassessment Continues documentation) Is patient on ventilator? Yes Is Patient Ambulatory and/or Out of Bed No REE-([place]-St. Jeor-confined to bed) 1441.344 Calculation Used for Recommendations [place] Jeor Additional Notes Pro needs 1.2-2g/k-126g/ day Fluid needs 1ml/kcal Nutrition Intervention Nutrition Support: Continue Vital AF 1.2 at 50ml/ hr with 100ml water flush q4h. Kcal 1,440 Protein (gm) 90 Carbohydrates (gm) 133 Fluid (mL) 973 Goal #1 TF tolerance Goal #2 TF to meet 90-100% energy and pro needs Anticipated Discharge Needs: Continue low-CHO TF formula if unable to advance diet Follow-Up By: 07/26/18 Additional Comments F/U: stable TF, wt, vent status
[2018-07-25] MEDS: SINGULAIR PO SCH (22:25)
[2018-07-26] MEDS: PROVENTIL IH SCH ×3 (02:56→14:02)
[2018-07-26 05:31] LABS: Basophils % (Auto) 0.1 % (0.0-1.8); Eosinophils % (Auto) 0.1 % (0.0-4.3); Hematocrit 42.2 % (30.3-42.9); Hemoglobin 13.1 gm/dl (10.1-14.3); Lymphocytes # (Auto) 1.6 K/mm3 (1.2-5.4); Lymphocytes % (Auto) 11.8 % (13.4-35.0); Mean Corpuscular HGB Conc 31 % (30-34); Mean Corpuscular Volume 104 fl (79-97); Monocytes # (Auto) 0.9 K/mm3 (0.0-0.8); Monocytes % (Auto) 6.4 % (0.0-7.3); Platelet Count 314 K/mm3 (140-440); Red Blood Count 4.05 M/mm3 (3.65-5.03); Red Cell Distribution Width 13.6 % (13.2-15.2)
[2018-07-26] MEDS: APRESOLINE PO SCH ×2 (05:31→16:00)
[2018-07-26] MEDS: TYLENOL PO PRN (05:31)
[2018-07-26 05:51] LABS: Alanine Aminotransferase 90 units/L (7-56); Albumin 3.2 g/dL (3.9-5); BUN/Creatinine Ratio 33; Blood Urea Nitrogen 13 mg/dL (7-17); Calcium 9.1 mg/dL (8.4-10.2); Hemolysis Index 4
[2018-07-26] MEDS: BROVANA NEBU IH SCH (08:17)
[2018-07-26] MEDS: PULMICORT IH SCH (08:17)
[2018-07-26] MEDS: NORVASC PO SCH (09:50)
[2018-07-26] MEDS: PROTONIX PO SCH (09:51)
[2018-07-26] MEDS: LEVAQUIN PO SCH (09:51)
[2018-07-26] MEDS: DELTASONE PO SCH (09:51)
[2018-07-26] MEDS: HEPARIN SUB-Q SCH (09:52)
--- NOTE | 2018-07-26 10:59 | Discharge Summary ---
Providers - Providers Date of Admission: 07/15/18 22:42 Attending physician: LUCIA GUNTER MD 07/17/18 10:50 Consult to Dietitian/Nutrition [CONS] Routine Physician Instructions: Reason For Exam: Reason for Consult: Write/Manage Tube Feeding 07/22/18 14:17 Consult to Physician [CONS] Routine Comment: Consulting Provider: CHRISTY MAX Physician Instructions: Reason For Exam: chronic respiraotry failure Primary care physician: DIRECTOR OF DANCE Hospitalization Reason for admission: SHORTNESS OF BREATH Condition: Stable Hospital course: Patient is a 63-year-old female with known history of hypertension, asthma, COPD on 3 L of home oxygen, previously intubated in the past admitted with shortness of breath and presumed sepsis although etiology not known at this time. On this admission Pateint was intubated for hypercarpenia and extubated on 07/20. Pateint was placed on BIPAP and managed in the ICU, she required a prolonged hospital stay due to the nature of her illness. she was also treated with antibiotics according to the GOLD guidelines. On discharge she was recommended to see the pulmonary phyisican and continue her Home oxygen along with Bipap Acute cardiorespiratory failure Acute respiratory failure with hypercarpenia Acute exacerbation chronic bronchitis SIRS Advanced emphysema copd WITH EXACERBATION Tobacco abuse Moderate to Severe Protein calorie Malnutrition Disposition: [id number] HOME UNDER HOME [facility] Time spent for discharge: 35 mins Core Measure Documentation - Palliative Care Palliative Care/ Comfort Measures: Not Applicable - Core Measures Any of the following diagnoses?: none - VTE Discharge Requirements Deep Vein Thrombosis/Pulmonary Embolism Present on Admission: No Exam - Physical Exam Narrative exam: VITAL SIGNS: Reviewed. GENERAL: The patient appeared well nourished and normally developed. Currently intubated on mechanical ventilation Vital signs as documented. HEAD: No signs of head trauma. EYES: Pupils are equal. EARS: Hearing grossly intact. MOUTH: ET tubes in place NECK: No adenopathy, no JVD. CHEST: Chest with clear breath sounds bilaterally. No wheezes, rales, or rhonchi. CARDIAC: Regular rate and rhythm. S1 and S2, without murmurs, gallops, or rubs. VASCULAR: No Edema. Peripheral pulses normal and equal in all extremities. ABDOMEN: Soft, without detectable tenderness. No sign of distention. No rebound or guarding, and no masses palpated. Bowel Sounds normal. MUSCULOSKELETAL: No edema noted NEUROLOGIC EXAM: AWAKE, MOVING EXT PSYCHIATRIC: UNABLE TO ASSESS SKIN: No rash or lesions. - Constitutional Vitals: Temp Pulse Resp BP Pulse Ox 98.7 F 90 18 144/63 94 07/26/18 07:45 07/26/18 09:50 07/26/18 08:27 07/26/18 09:50 07/26/18 09:07 Plan Activity: advance as tolerated, fall precautions Diet: diabetic Special Instructions: smoking cessation, home oxygen via (nasal cannula @ 2 liters per minute) Durable Medical Equipment Needed Upon Discharge: Oxygen Follow up with: PRIMARY CAREMD [Primary Care Provider] - 3-5 Days ANEL GUIDO MD [Staff Physician] - 7 Days Prescriptions: QUEtiapine [SEROquel] 50 mg PO QHS #30 tablet Albuterol Sulfate [Ventolin HFA] 2 puff IH Q4H PRN #1 [id number] PRN Reason: Shortness Of Breath amLODIPine [Norvasc] 10 mg PO QDAY #30 tablet Arformoterol Nebu [Brovana Nebu] 15 mcg IH Q12HRT #30 ml Budesonide [Pulmicort Respules] 0.5 mg IH Q12HRT #30 nebu hydrALAZINE [Apresoline TAB] 25 mg PO Q8HR #90 tablet levoFLOXacin [Levaquin TAB] 750 mg PO Q24HR #5 tablet Pantoprazole [Protonix TAB] 40 mg PO DAILY #30 tablet Prednisone [predniSONE 10 mg (6-Day Pack, 21 Tabs)] 10 mg PO .TAPER #1 tab.ds.pk
[2018-07-26] MEDS ORDERED: NACL 0.9% 250ML 250 ML IV ONE (11:22)
--- NOTE | 2018-07-26 11:40 | Progress Note ---
Assessment and Plan Acute cardiorespiratory failure episode. Acute exacerbation chronic bronchitis Advanced emphysema Echocardiogram with normal ejection fraction noted Tobacco abuse Recommendations Ambulate patient and monitor oximetry. Add portable oxygen 2 L/m if oximetry below 89% on room air. Candidate for pulmonary rehabilitation Prednisone from 40-60 mg by mouth daily with taper in the next 7 days. The patient does use a baseline prednisone dose of 10 mg as outpatient Outpatient pulmonary f/u evaluation with in 3-4 wk Inhaler therapy including LAMA, LABA/ICS therapy, per GOLD guidelines Continue BiPAP at home Discussed smoking cessation Subjective Date of service: 07/26/18 Principal diagnosis: Ac on ch hypoxemic Resp failure; AE-COPD; RLL PNA (CAP); Hypercapnic Failur Interval history: Feels better.Thirsty Objective Vital Signs - 12hr 07/25/18 07/26/18 07/26/18 23:43 00:00 02:45 Temperature 97.2 F L Pulse Rate 83 85 Pulse Rate [ 72 Anterior Bilateral Throughout] Pulse Rate [ Apical] Pulse Rate [ Left Dorsalis Pedis] Pulse Rate [ Left Radial] Pulse Rate [ Posterior Bilateral Throughout] Pulse Rate [ Right Dorsalis Pedis] Pulse Rate [ Right Radial] Respiratory 22 24 Rate Respiratory 18 Rate [Anterior Bilateral Throughout] Respiratory Rate [Posterior Bilateral Throughout] Blood Pressure 124/50 O2 Sat by Pulse 91 94 Oximetry 07/26/18 07/26/18 07/26/18 02:56 03:00 04:27 Temperature 98.9 F Pulse Rate 72 79 Pulse Rate [ 66 Anterior Bilateral Throughout] Pulse Rate [ Apical] Pulse Rate [ Left Dorsalis Pedis] Pulse Rate [ Left Radial] Pulse Rate [ Posterior Bilateral Throughout] Pulse Rate [ Right Dorsalis Pedis] Pulse Rate [ Right Radial] Respiratory 18 24 Rate Respiratory 16 Rate [Anterior Bilateral Throughout] Respiratory Rate [Posterior Bilateral Throughout] Blood Pressure 131/72 O2 Sat by Pulse 93 92 Oximetry 07/26/18 07/26/18 07/26/18 05:31 06:31 07:45 Temperature 98.7 F Pulse Rate 79 97 H Pulse Rate [ Anterior Bilateral Throughout] Pulse Rate [ Apical] Pulse Rate [ Left Dorsalis Pedis] Pulse Rate [ Left Radial] Pulse Rate [ Posterior Bilateral Throughout] Pulse Rate [ Right Dorsalis Pedis] Pulse Rate [ Right Radial] Respiratory 18 18 16 Rate Respiratory Rate [Anterior Bilateral Throughout] Respiratory Rate [Posterior Bilateral Throughout] Blood Pressure 131/72 144/63 O2 Sat by Pulse 91 Oximetry 07/26/18 07/26/18 07/26/18 08:15 08:27 09:07 Temperature Pulse Rate Pulse Rate [ Anterior Bilateral Throughout] Pulse Rate [ Apical] Pulse Rate [ Left Dorsalis Pedis] Pulse Rate [ Left Radial] Pulse Rate [ 91 H 90 Posterior Bilateral Throughout] Pulse Rate [ Right Dorsalis Pedis] Pulse Rate [ Right Radial] Respiratory Rate Respiratory Rate [Anterior Bilateral Throughout] Respiratory 18 18 Rate [Posterior Bilateral Throughout] Blood Pressure O2 Sat by Pulse 94 Oximetry 07/26/18 07/26/18 09:50 10:00 Temperature Pulse Rate 90 Pulse Rate [ Anterior Bilateral Throughout] Pulse Rate [ 90 Apical] Pulse Rate [ 90 Left Dorsalis Pedis] Pulse Rate [ 90 Left Radial] Pulse Rate [ Posterior Bilateral Throughout] Pulse Rate [ 90 Right Dorsalis Pedis] Pulse Rate [ 90 Right Radial] Respiratory 22 Rate Respiratory Rate [Anterior Bilateral Throughout] Respiratory Rate [Posterior Bilateral Throughout] Blood Pressure 144/63 O2 Sat by Pulse 97 Oximetry Constitutional: no acute distress, alert Eyes: non-icteric ENT: oropharynx moist Neck: supple, no JVD Effort: mildly labored Ascultation: Bilateral: clear, diminished breath sounds Percussion: Bilateral: not dull Tactile fremitus: Bilateral: normal Cardiovascular: regular rate and rhythm Gastrointestinal: normoactive bowel sounds, soft, non-distended Integumentary: rash Extremities: no cyanosis, no edema, pulses normal, no ischemia or petechiae Neurologic: normal mental status, non-focal exam, pupils equal and round, motor strength normal and Psychiatric: mood appropriate, affect normal CBC and BMP: 07/26/18 05:02 07/26/18 05:02 ABG, PT/INR, D-dimer: ABG POC ABG pH 7.388 (7.35-7.45) 07/20/18 11:28 POC ABG pCO2 71.2 (35-45) H 07/20/18 11:28 POC ABG pO2 77 (80-105) L 07/20/18 11:28 POC ABG HCO3 43.0 07/20/18 11:28 POC ABG Total CO2 45 07/20/18 11:28 POC ABG O2 Sat 94 07/20/18 11:28 PT/INR, D-dimer D-Dimer 498.74 ng/mlDDU (0-234) H 07/16/18 16:00 Abnormal lab findings: Abnormal Labs 07/15/18 07/15/18 07/15/18 19:55 19:55 20:04 WBC 14.3 H RBC Hgb 14.6 H Hct 44.9 H MCV 106 H MCH 34 H Lymph % (Auto) [place] % (Auto) Lymph # [place] # Seg Neutrophils % Seg Neuts % (Manual) 96.0 H Lymphocytes % (Manual) 3.0 L Seg Neutrophils # Seg Neutrophils # Man 13.7 H Lymphocytes # (Manual) 0.4 L D-Dimer POC ABG pH 7.105 L POC ABG pCO2 120.2 H POC ABG pO2 71 L Sodium Potassium Chloride Carbon Dioxide 36 H BUN Creatinine 0.6 L Glucose 172 H POC Glucose Lactic Acid Calcium ALT C-Reactive Protein Total Protein Albumin 07/15/18 07/15/18 07/15/18 20:46 21:18 22:05 WBC RBC Hgb Hct MCV MCH Lymph % (Auto) [place] % (Auto) Lymph # [place] # Seg Neutrophils % Seg Neuts % (Manual) Lymphocytes % (Manual) Seg Neutrophils # Seg Neutrophils # Man Lymphocytes # (Manual) D-Dimer POC ABG pH 7.305 L POC ABG pCO2 64.5 H POC ABG pO2 220 H Sodium Potassium Chloride Carbon Dioxide BUN Creatinine Glucose POC Glucose Lactic Acid 2.40 H* 3.40 H* Calcium ALT C-Reactive Protein Total Protein Albumin 07/15/18 07/16/18 07/16/18 23:27 07:50 16:00 WBC RBC Hgb Hct MCV MCH Lymph % (Auto) [place] % (Auto) Lymph # [place] # Seg Neutrophils % Seg Neuts % (Manual) Lymphocytes % (Manual) Seg Neutrophils # Seg Neutrophils # Man Lymphocytes # (Manual) D-Dimer 498.74 H POC ABG pH 7.328 L POC ABG pCO2 50.0 H POC ABG pO2 Sodium Potassium Chloride Carbon Dioxide BUN Creatinine Glucose POC Glucose Lactic Acid 3.60 H* Calcium ALT C-Reactive Protein Total Protein Albumin 07/16/18 07/17/18 07/17/18 16:00 03:11 03:11 WBC RBC 3.31 L Hgb Hct MCV 104 H MCH 34 H Lymph % (Auto) [place] % (Auto) Lymph # [place] # Seg Neutrophils % Seg Neuts % (Manual) Lymphocytes % (Manual) Seg Neutrophils # Seg Neutrophils # Man Lymphocytes # (Manual) D-Dimer POC ABG pH POC ABG pCO2 POC ABG pO2 Sodium Potassium Chloride 108.8 H Carbon Dioxide BUN 21 H Creatinine 0.5 L Glucose 132 H POC Glucose Lactic Acid Calcium 8.0 L ALT C-Reactive Protein 1.60 H Total Protein Albumin 07/17/18 07/18/18 07/18/18 04:00 04:34 05:57 WBC RBC Hgb Hct MCV MCH Lymph % (Auto) [place] % (Auto) Lymph # [place] # Seg Neutrophils % Seg Neuts % (Manual) Lymphocytes % (Manual) Seg Neutrophils # Seg Neutrophils # Man Lymphocytes # (Manual) D-Dimer POC ABG pH 7.280 L POC ABG pCO2 46.3 H 63.1 H POC ABG pO2 124 H Sodium Potassium Chloride Carbon Dioxide BUN Creatinine Glucose POC Glucose 114 H Lactic Acid Calcium ALT C-Reactive Protein Total Protein Albumin 07/18/18 07/18/18 07/19/18 11:22 18:03 05:34 WBC RBC Hgb Hct MCV MCH Lymph % (Auto) [place] % (Auto) Lymph # [place] # Seg Neutrophils % Seg Neuts % (Manual) Lymphocytes % (Manual) Seg Neutrophils # Seg Neutrophils # Man Lymphocytes # (Manual) D-Dimer POC ABG pH 7.235 L 7.251 L 7.329 L POC ABG pCO2 75.6 H 76.3 H 64.7 H POC ABG pO2 67 L Sodium Potassium Chloride Carbon Dioxide BUN Creatinine Glucose POC Glucose Lactic Acid Calcium ALT C-Reactive Protein Total Protein Albumin 07/19/18 07/20/18 07/22/18 16:58 11:28 05:36 WBC 11.4 H RBC Hgb Hct MCV 103 H MCH 33 H Lymph % (Auto) 11.6 L [place] % (Auto) 9.1 H Lymph # [place] # 1.0 H Seg Neutrophils % 78.9 H Seg Neuts % (Manual) Lymphocytes % (Manual) Seg Neutrophils # 9.0 H Seg Neutrophils # Man Lymphocytes # (Manual) D-Dimer POC ABG pH 7.336 L POC ABG pCO2 72.2 H 71.2 H POC ABG pO2 75 L 77 L Sodium Potassium Chloride Carbon Dioxide BUN Creatinine Glucose POC Glucose Lactic Acid Calcium ALT C-Reactive Protein Total Protein Albumin 02/07/0907/22/18 07/24/18 05:36 06:29 13:13 WBC RBC Hgb 14.5 H Hct 46.7 H D MCV 105 H MCH 33 H Lymph % (Auto) [place] % (Auto) 8.3 H Lymph # [place] # 0.9 H Seg Neutrophils % 75.0 H Seg Neuts % (Manual) Lymphocytes % (Manual) Seg Neutrophils # 8.1 H Seg Neutrophils # Man Lymphocytes # (Manual) D-Dimer POC ABG pH POC ABG pCO2 POC ABG pO2 Sodium 149 H 147 H Potassium 3.2 L 3.3 L Chloride 92.1 L 90.5 L Carbon Dioxide 50 H* 49 H* BUN Creatinine 0.3 L 0.3 L Glucose 140 H 108 H POC Glucose Lactic Acid Calcium ALT C-Reactive Protein Total Protein Albumin 07/24/18 07/25/18 07/25/18 13:13 05:48 05:48 WBC 14.4 H RBC Hgb Hct MCV 103 H MCH Lymph % (Auto) 6.5 L [place] % (Auto) Lymph # 0.9 L [place] # Seg Neutrophils % 88.3 H Seg Neuts % (Manual) Lymphocytes % (Manual) Seg Neutrophils # 12.7 H Seg Neutrophils # Man Lymphocytes # (Manual) D-Dimer POC ABG pH POC ABG pCO2 POC ABG pO2 Sodium 148 H Potassium Chloride 97.8 L Carbon Dioxide 41 H* D 41 H* BUN Creatinine 0.6 L D 0.3 L Glucose 134 H POC Glucose Lactic Acid Calcium ALT 97 H C-Reactive Protein Total Protein 5.9 L Albumin 3.3 L 07/25/18 07/26/18 07/26/18 16:53 05:02 05:02 WBC 13.7 H RBC Hgb Hct MCV 104 H MCH Lymph % (Auto) 11.8 L [place] % (Auto) Lymph # [place] # 0.9 H Seg Neutrophils % 81.6 H Seg Neuts % (Manual) Lymphocytes % (Manual) Seg Neutrophils # 11.2 H Seg Neutrophils # Man Lymphocytes # (Manual) D-Dimer POC ABG pH POC ABG pCO2 POC ABG pO2 Sodium Potassium Chloride Carbon Dioxide 39 H BUN Creatinine 0.4 L Glucose POC Glucose 118 H Lactic Acid Calcium ALT 90 H C-Reactive Protein Total Protein 5.9 L Albumin 3.2 L Allied health notes reviewed: RT
[2018-07-26 16:00] VITALS: BP 132/59
== END 2018-07-26 17:22 | disposition home health service (06) | DRG 870 ==
LOC: ED 19:16 → CC1 22:42 → 4A 07-21 20:58
PROVIDERS: ADMIT Internal Medicine; ATTEND Internal Medicine
PROC: 5A1955Z Respiratory Ventilation, Greater than 96 Consecutive Hours (ICD-10-PCS; principal; 2018-07-15)
PROC: 0BH17EZ Insertion of Endotracheal Airway into Trachea, Via Natural or Artificial Opening (ICD-10-PCS; 2018-07-15)
PROC: 4A033R1 Measurement of Arterial Saturation, Peripheral, Percutaneous Approach (ICD-10-PCS; 2018-07-15)
PROC: 05HY33Z Insertion of Infusion Device into Upper Vein, Percutaneous Approach (ICD-10-PCS; 2018-07-16)
PROC: B54PZZA Ultrasonography of Bilateral Upper Extremity Veins, Guidance (ICD-10-PCS; 2018-07-16)
PROC: 5A09557 Assistance with Respiratory Ventilation, Greater than 96 Consecutive Hours, Continuous Positive Airway Pressure (ICD-10-PCS; 2018-07-20)
DX: A41.9 Sepsis, unspecified organism (principal); E43 Unspecified severe protein-calorie malnutrition; J96.21 Acute and chronic respiratory failure with hypoxia; J96.22 Acute and chronic respiratory failure with hypercapnia; J18.1 Lobar pneumonia, unspecified organism; J44.0 Chronic obstructive pulmonary disease with (acute) lower respiratory infection; E87.2 Acidosis; J44.1 Chronic obstructive pulmonary disease with (acute) exacerbation; Z68.1 Body mass index [BMI] 19.9 or less, adult; J20.9 Acute bronchitis, unspecified; E11.9 Type 2 diabetes mellitus without complications; D72.828 Other elevated white blood cell count; F17.210 Nicotine dependence, cigarettes, uncomplicated; G47.33 Obstructive sleep apnea (adult) (pediatric); K21.9 Gastro-esophageal reflux disease without esophagitis; I11.0 Hypertensive heart disease with heart failure; I16.0 Hypertensive urgency; I50.9 Heart failure, unspecified; Z99.81 Dependence on supplemental oxygen; Z91.010 Allergy to peanuts; Z79.899 Other long term (current) drug therapy; Z91.013 Allergy to seafood
CPT/HCPCS: 36415; 36600; 71045; 80048; 80053; 81001; 82140; 82803; 82962; 85007; 85025; 85027; 85379; 86140; 87116; 93005; 93010; 93306; 94002; 94003; 94640; 94660; 94760; 96361; 96365; 96375; 99292; G0378; J0330; J0456; J0692; J1644; J1956; J2060; J2250; J2405; J2704; J2930; J3010; J3370; J3475; J3480; J7030; J7040; J7050; J7512

== ENCOUNTER 2018-12-03 04:29 | Inpatient (IN) | payer MEDICARE ==
[2018-12-03] MEDS ORDERED: SOLU-Medrol IV ONE (04:40)
[2018-12-03] MEDS ORDERED: PROVENTIL IH ONE ×3 (04:40→14:17)
[2018-12-03] MEDS ORDERED: ATROVENT IH ONE ×2 (04:40→04:43)
[2018-12-03] MEDS ORDERED: NACL 0.9% 1000 ML 1,000 ML IV ONE (04:40)
[2018-12-03 05:15] LABS: Basophils % (Auto) 0.1 % (0.0-1.8); Eosinophils % (Auto) 0.3 % (0.0-4.3); Hematocrit 41.3 % (30.3-42.9); Hemoglobin 13.3 gm/dl (10.1-14.3); Lymphocytes # (Auto) 1.4 K/mm3 (1.2-5.4); Lymphocytes % (Auto) 13.1 % (13.4-35.0); Mean Corpuscular HGB Conc 32 % (30-34); Mean Corpuscular Volume 105 fl (79-97); Monocytes # (Auto) 0.7 K/mm3 (0.0-0.8); Monocytes % (Auto) 6.9 % (0.0-7.3); Platelet Count 297 K/mm3 (140-440); Red Blood Count 3.92 M/mm3 (3.65-5.03); Red Cell Distribution Width 14.8 % (13.2-15.2)
--- NOTE | 2018-12-03 05:16 | XRay Report ---
PROCEDURE: XR CHEST 1V AP TECHNIQUE: Chest radiograph single view. HISTORY: resp distress COMPARISONS: 07/20/2018 . FINDINGS: Heart: Normal. Mediastinum/Vessels: Normal. Lungs/Pleural space: Lungs are expanded. There are mild fibrotic changes. There are no acute infiltr ates. There is no pleural effusion or pneumothorax.. Bony thorax: No acute osseous abnormality. Life support devices: None. IMPRESSION: No acute cardiopulmonary abnormality. This document is electronically signed by Arsh Flores MD., December 03 2018 05:13:57 AM ET
--- NOTE | 2018-12-03 05:26 | Emergency Department Report ---
ED Shortness of Breath HPI - General Chief Complaint: Dyspnea/Respdistress Stated Complaint: DIFFICULTY IN BREATHING Time Seen by Provider: 12/03/18 04:39 Source: patient, EMS Mode of arrival: Stretcher Limitations: No Limitations - History of Present Illness MD Complaint: shortness of breath, "asthma attack" Onset/Timin -: days(s) Severity: moderate Pain Scale: 5 Quality: aching (mild headache and tightness with breathing) Consistency: constant Improves With: nothing Worsens With: nothing Known History Of: COPD Associated Symptoms: chest pain, cough, sputum production (thinkc clear) - Related Data Home Medications Medication Instructions Recorded Confirmed Last Taken ALPRAZolam 0.25 mg PO BID 12/03/18 12/03/18 Unknown Loratadine 10 mg PO HS 12/03/18 12/03/18 Unknown QUEtiapine 25 mg PO HS 12/03/18 12/03/18 Unknown Previous Rx's Medication Instructions Recorded Last Taken Type Carvedilol [Coreg] 6.25 mg PO BID #60 tablet 11/30/17 07/15/18 Rx Lisinopril [Zestril TAB] 5 mg PO QDAY #30 tablet 11/30/17 07/15/18 Rx Pantoprazole [Protonix TAB] 40 mg PO QDAY #30 tablet 01/17/18 07/15/18 Rx Montelukast [Singulair] 10 mg PO QHS #30 tablet 02/20/18 07/15/18 Rx Albuterol Sulfate [Ventolin HFA] 2 puff IH Q4H PRN #1 hfa.aer.ad 07/26/18 Unknown Rx Arformoterol Nebu [Brovana Nebu] 15 mcg IH Q12HRT #30 ml 07/26/18 Unknown Rx Budesonide [Pulmicort Respules] 0.5 mg IH Q12HRT #30 nebu 07/26/18 Unknown Rx Pantoprazole [Protonix TAB] 40 mg PO DAILY #30 tablet 07/26/18 Unknown Rx QUEtiapine [SEROquel] 50 mg PO QHS #30 tablet 07/26/18 Unknown Rx amLODIPine [Norvasc] 10 mg PO QDAY #30 tablet 07/26/18 Unknown Rx hydrALAZINE [Apresoline TAB] 25 mg PO Q8HR #90 tablet 07/26/18 Unknown Rx levoFLOXacin [Levaquin TAB] 750 mg PO Q24HR #5 tablet 07/26/18 Unknown Rx Prednisone [predniSONE 10 mg 10 mg PO .TAPER #1 tab.ds.pk 12/06/18 Unknown Rx (6-Day Pack, 21 Tabs)] Allergies Allergy/AdvReac Type Severity Reaction Status Date / Time peanut Allergy Angioedema Verified 12/03/18 04:44 ipratropium bromide AdvReac Shortness Verified 12/03/18 04:44 [From Atrovent] of Breath Shellfish Allergy Unknown Uncoded 01/15/18 14:25 ED Review of Systems ROS: Stated complaint: DIFFICULTY IN BREATHING Other details as noted in HPI Comment: All other systems reviewed and negative ED Past Medical Hx - Past Medical History Hx Hypertension: Yes Hx CVA: No Hx Heart Attack/AMI: No Hx Congestive Heart Failure: No Hx Diabetes: No Hx Deep Vein Thrombosis: No Hx Pulmonary Embolism: No Hx GERD: No Hx Liver Disease: No Hx Renal Disease: No Hx Sickle Cell Disease: No Hx Arthritis: No Hx Headaches / Migraines: No Hx Seizures: No Hx Kidney Stones: No Hx Psychiatric Treatment: No Hx Asthma: Yes Hx COPD: Yes Hx Tuberculosis: No Hx Dementia: No Hx HIV: No Additional medical history: hx intubation - Surgical History Hx Coronary Stent: No Hx Open Heart Surgery: No Hx Pacemaker: No Hx Internal Defibrillator: No Hx Cholecystectomy: No Hx Appendectomy: No Hx Breast Surgery: No - Social History Smoking Status: Former Smoker Substance Use Type: None - Medications Home Medications: Home Medications Medication Instructions Recorded Confirmed Last Taken Type Carvedilol [Coreg] 6.25 mg PO BID #60 tablet 11/30/17 12/06/18 07/15/18 Rx Lisinopril [Zestril TAB] 5 mg PO QDAY #30 tablet 11/30/17 12/06/18 07/15/18 Rx Pantoprazole [Protonix TAB] 40 mg PO QDAY #30 tablet 01/17/18 12/06/18 07/15/18 Rx Montelukast [Singulair] 10 mg PO QHS #30 tablet 02/20/18 12/03/18 07/15/18 Rx Albuterol Sulfate [Ventolin HFA] 2 puff IH Q4H PRN #1 hfa.aer.ad 07/26/18 12/06/18 Unknown Rx Arformoterol Nebu [Brovana Nebu] 15 mcg IH Q12HRT #30 ml 07/26/18 12/06/18 Unknown Rx Budesonide [Pulmicort Respules] 0.5 mg IH Q12HRT #30 nebu 07/26/18 12/06/18 Unknown Rx Pantoprazole [Protonix TAB] 40 mg PO DAILY #30 tablet 07/26/18 12/06/18 Unknown Rx QUEtiapine [SEROquel] 50 mg PO QHS #30 tablet 07/26/18 12/06/18 Unknown Rx amLODIPine [Norvasc] 10 mg PO QDAY #30 tablet 07/26/18 12/03/18 Unknown Rx hydrALAZINE [Apresoline TAB] 25 mg PO Q8HR #90 tablet 07/26/18 12/06/18 Unknown Rx levoFLOXacin [Levaquin TAB] 750 mg PO Q24HR #5 tablet 07/26/18 12/06/18 Unknown Rx ALPRAZolam 0.25 mg PO BID 12/03/18 12/03/18 Unknown History Loratadine 10 mg PO HS 12/03/18 12/03/18 Unknown History QUEtiapine 25 mg PO HS 12/03/18 12/03/18 Unknown History Prednisone [predniSONE 10 mg 10 mg PO .TAPER #1 tab.ds.pk 12/06/18 Unknown Rx (6-Day Pack, 21 Tabs)] ED Physical Exam - General Limitations: No Limitations General appearance: alert, in no apparent distress - Head Head exam: Present: atraumatic, normocephalic - Eye Eye exam: Present: normal appearance, PERRL, EOMI - ENT ENT exam: Present: mucous membranes moist - Neck Neck exam: Present: normal inspection - Respiratory Respiratory exam: Present: wheezes. Absent: normal lung sounds bilaterally, respiratory distress (talking in full sentenses), rales, rhonchi, stridor - Cardiovascular Cardiovascular Exam: Present: regular rate, normal rhythm. Absent: systolic murmur, diastolic murmur, rubs, gallop - GI/Abdominal GI/Abdominal exam: Present: soft, normal bowel sounds - Extremities Exam Extremities exam: Present: normal inspection - Back Exam Back exam: Present: normal inspection - Neurological Exam Neurological exam: Present: alert, oriented X3 - Psychiatric Psychiatric exam: Present: normal affect, normal mood - Skin Skin exam: Present: warm, dry, intact, normal color. Absent: rash ED Course Vital Signs 12/03/18 12/03/18 12/03/18 04:38 04:45 04:51 Temperature 97.8 F Pulse Rate 67 67 Pulse Rate [ Bilateral] Respiratory 13 20 Rate Respiratory Rate [Bilateral ] Blood Pressure 167/64 171/68 O2 Sat by Pulse 100 100 100 Oximetry 12/03/18 12/03/18 12/03/18 04:53 05:00 05:15 Temperature Pulse Rate 67 62 Pulse Rate [ 64 Bilateral] Respiratory 21 16 Rate Respiratory 14 Rate [Bilateral ] Blood Pressure 171/68 160/62 O2 Sat by Pulse 100 100 Oximetry 12/03/18 12/03/18 12/03/18 05:30 06:27 06:31 Temperature Pulse Rate 60 81 73 Pulse Rate [ Bilateral] Respiratory 24 21 21 Rate Respiratory Rate [Bilateral ] Blood Pressure 160/62 158/68 O2 Sat by Pulse 100 91 97 Oximetry 12/03/18 12/03/18 12/03/18 06:32 06:33 07:00 Temperature Pulse Rate 66 80 Pulse Rate [ 59 L Bilateral] Respiratory 22 15 Rate Respiratory 22 Rate [Bilateral ] Blood Pressure 158/68 134/60 O2 Sat by Pulse 97 97 Oximetry 12/03/18 12/03/18 12/03/18 07:14 07:30 08:00 Temperature Pulse Rate 83 80 79 Pulse Rate [ Bilateral] Respiratory 22 24 23 Rate Respiratory Rate [Bilateral ] Blood Pressure 127/57 119/62 135/67 O2 Sat by Pulse 98 96 96 Oximetry 12/03/18 12/03/18 12/03/18 08:30 09:00 09:31 Temperature Pulse Rate 77 77 75 Pulse Rate [ Bilateral] Respiratory 24 25 H 25 H Rate Respiratory Rate [Bilateral ] Blood Pressure 133/63 139/68 131/65 O2 Sat by Pulse 96 97 98 Oximetry 12/03/18 12/03/18 12/03/18 10:00 10:30 11:00 Temperature Pulse Rate 79 79 70 Pulse Rate [ Bilateral] Respiratory 21 15 27 H Rate Respiratory Rate [Bilateral ] Blood Pressure 119/65 131/64 115/64 O2 Sat by Pulse 97 97 98 Oximetry 12/03/18 12/03/18 12/03/18 11:30 12:00 12:30 Temperature Pulse Rate 77 78 78 Pulse Rate [ Bilateral] Respiratory 12 26 H 22 Rate Respiratory Rate [Bilateral ] Blood Pressure 135/69 126/66 127/66 O2 Sat by Pulse 100 99 99 Oximetry 12/03/18 12/03/18 12/03/18 13:00 13:30 14:00 Temperature Pulse Rate 79 81 72 Pulse Rate [ Bilateral] Respiratory 19 24 13 Rate Respiratory Rate [Bilateral ] Blood Pressure 146/72 145/73 128/63 O2 Sat by Pulse 99 99 100 Oximetry 12/03/18 12/03/18 12/03/18 14:31 15:00 15:20 Temperature Pulse Rate 70 77 73 Pulse Rate [ Bilateral] Respiratory 11 L 11 L 13 Rate Respiratory Rate [Bilateral ] Blood Pressure 159/74 137/70 126/67 O2 Sat by Pulse 100 100 100 Oximetry 12/03/18 15:30 Temperature Pulse Rate 71 Pulse Rate [ Bilateral] Respiratory 10 L Rate Respiratory Rate [Bilateral ] Blood Pressure 130/68 O2 Sat by Pulse 99 Oximetry - Reevaluation(s) Reevaluation #1: 12/03/18 05:44 At this time the patient is still wheezing. She has another 30-40 minutes left of her Treatment. Patient be signed out to the oncoming physician for reassessment. ED Medical Decision Making - Lab Data Result diagrams: 12/04/18 03:33 12/04/18 03:33 Lab Results 12/03/18 Range/Units 04:44 WBC 10.4 (4.5-11.0) K/mm3 RBC 3.92 (3.65-5.03) M/mm3 Hgb 13.3 (10.1-14.3) gm/dl Hct 41.3 (30.3-42.9) % MCV 105 H (79-97) fl MCH 34 H (28-32) pg MCHC 32 (30-34) % RDW 14.8 (13.2-15.2) % Plt Count 297 (140-440) K/mm3 Lymph % (Auto) 13.1 L (13.4-35.0) % [place] % (Auto) 6.9 (0.0-7.3) % Eos % (Auto) 0.3 (0.0-4.3) % Baso % (Auto) 0.1 (0.0-1.8) % Lymph # 1.4 (1.2-5.4) K/mm3 [place] # 0.7 (0.0-0.8) K/mm3 Eos # 0.0 (0.0-0.4) K/mm3 Baso # 0.0 (0.0-0.1) K/mm3 Seg Neutrophils % 79.6 H (40.0-70.0) % Seg Neutrophils # 8.3 H (1.8-7.7) K/mm3 - Radiology Data CXR WNL - Medical Decision Making Patient's currently on a neb treatment at the time of signout to Dr. Wyatt. The patient be reassessed. Is a patient is not improving she will likely need admission to the hospital. Critical care attestation.: If time is entered above; I have spent that time in minutes in the direct care of this critically ill patient, excluding procedure time. ED Disposition Clinical Impression: Acute hypercapnic respiratory failure, Chronic hypercapnic respiratory failure, COPD exacerbation Cardiomyopathy Qualifiers: Cardiomyopathy type: unspecified Qualified Code(s): I42.9 - Cardiomyopathy, unspecified Disposition: OP ADMIT IP TO THIS HOSP Is pt being admited?: Yes Condition: Fair
[2018-12-03 05:32] LABS: BUN/Creatinine Ratio 25; Blood Urea Nitrogen 10 mg/dL (7-17); Calcium 8.7 mg/dL (8.4-10.2); Hemolysis Index 8
--- NOTE | 2018-12-03 07:03 | Emergency Department Report ---
Blank Doc - Documentation Documentation: Review the patient's previous records and current labs as well as clinical stat us indicated the need for BiPAP. An ABG was performed. Indeed her PCO2 was 95. She was placed on BiPAP which she accepted well. On reexamination. She appeared to be ventilating amply. Repeat blood gas will be performed. She'll be admitted to the hospitalist service for her hypercapnic respiratory failure. She had no specific complaints. She denied chest pain significant cough fever or chills.
--- NOTE | 2018-12-03 11:54 | History and Physical Report ---
History of Present Illness Date of admission: 12/03/18 08:59 Chief complaint: sob History of present illness: 63-year-old woman with history of asthma/COPD who presents with shortness of breath chest tightness and wheezing. States that her symptoms have been going on for 3 days. Associated with mild chest tightness and difficulty breathing. Her symptoms are constant and nothing improves them, she has no exacerbating factors. She is also complaining of thick sputum pmh; Hypertension, asthma, COPD, history of intubation Past surgical history denies any major surgeries Family history denies history of premature stroke or heart attack Social history admits to smoking in the past, currently denies smoking alcohol abuse or illicit drug use. Medications and Allergies Allergies Allergy/AdvReac Type Severity Reaction Status Date / Time peanut Allergy Angioedema Verified 12/03/18 04:44 ipratropium bromide AdvReac Shortness Verified 12/03/18 04:44 [From Atrovent] of Breath Shellfish Allergy Unknown Uncoded 01/15/18 14:25 Home Medications Medication Instructions Recorded Confirmed Last Taken Type Carvedilol [Coreg] 6.25 mg PO BID #60 tablet 11/30/17 07/18/18 07/15/18 Rx Lisinopril [Zestril TAB] 5 mg PO QDAY #30 tablet 11/30/17 07/18/18 07/15/18 Rx Pantoprazole [Protonix TAB] 40 mg PO QDAY #30 tablet 01/17/18 07/18/18 07/15/18 Rx Montelukast [Singulair] 10 mg PO QHS #30 tablet 02/20/18 07/18/18 07/15/18 Rx Albuterol Sulfate [Ventolin HFA] 2 puff IH Q4H PRN #1 hfa.aer.ad 07/26/18 Unknown Rx Arformoterol Nebu [Brovana Nebu] 15 mcg IH Q12HRT #30 ml 07/26/18 Unknown Rx Budesonide [Pulmicort Respules] 0.5 mg IH Q12HRT #30 nebu 07/26/18 Unknown Rx Pantoprazole [Protonix TAB] 40 mg PO DAILY #30 tablet 07/26/18 Unknown Rx Prednisone [predniSONE 10 mg 10 mg PO .TAPER #1 tab.ds.pk 07/26/18 Unknown Rx (6-Day Pack, 21 Tabs)] QUEtiapine [SEROquel] 50 mg PO QHS #30 tablet 07/26/18 Unknown Rx amLODIPine [Norvasc] 10 mg PO QDAY #30 tablet 07/26/18 Unknown Rx hydrALAZINE [Apresoline TAB] 25 mg PO Q8HR #90 tablet 07/26/18 Unknown Rx levoFLOXacin [Levaquin TAB] 750 mg PO Q24HR #5 tablet 07/26/18 Unknown Rx Exam - Constitutional Vitals: Temp Pulse Resp BP Pulse Ox 97.8 F 77 12 135/69 100 12/03/18 04:38 12/03/18 11:30 12/03/18 11:30 12/03/18 11:30 12/03/18 11:30 Results - Labs CBC & Chem 7: 12/03/18 04:44 12/03/18 04:44 Labs: Laboratory Last Values WBC 10.4 K/mm3 (4.5-11.0) 12/03/18 04:44 RBC 3.92 M/mm3 (3.65-5.03) 12/03/18 04:44 Hgb 13.3 gm/dl (10.1-14.3) 12/03/18 04:44 Hct 41.3 % (30.3-42.9) 12/03/18 04:44 MCV 105 fl (79-97) H 12/03/18 04:44 MCH 34 pg (28-32) H 12/03/18 04:44 MCHC 32 % (30-34) 12/03/18 04:44 RDW 14.8 % (13.2-15.2) 12/03/18 04:44 Plt Count 297 K/mm3 (140-440) 12/03/18 04:44 Lymph % (Auto) 13.1 % (13.4-35.0) L 12/03/18 04:44 [place] % (Auto) 6.9 % (0.0-7.3) 12/03/18 04:44 Eos % (Auto) 0.3 % (0.0-4.3) 12/03/18 04:44 Baso % (Auto) 0.1 % (0.0-1.8) 12/03/18 04:44 Lymph # 1.4 K/mm3 (1.2-5.4) 12/03/18 04:44 [place] # 0.7 K/mm3 (0.0-0.8) 12/03/18 04:44 Eos # 0.0 K/mm3 (0.0-0.4) 12/03/18 04:44 Baso # 0.0 K/mm3 (0.0-0.1) 12/03/18 04:44 Seg Neutrophils % 79.6 % (40.0-70.0) H 12/03/18 04:44 Seg Neutrophils # 8.3 K/mm3 (1.8-7.7) H 12/03/18 04:44 POC ABG pH 7.251 (7.35-7.45) L 12/03/18 06:29 POC ABG pO2 65 (80-105) L 12/03/18 06:29 POC ABG HCO3 42.3 (22-26 mml/L) 12/03/18 06:29 POC ABG Total CO2 45 (23-27mmol/L) 12/03/18 06:29 POC ABG O2 Sat 87 12/03/18 06:29 POC ABG Base Excess 15 ((-2) - (+3)mmol/L) 12/03/18 06:29 21 % 12/03/18 06:29 Sodium 144 mmol/L (137-145) 12/03/18 04:44 Potassium 4.2 mmol/L (3.6-5.0) 12/03/18 04:44 Chloride 100.3 mmol/L (98-107) 12/03/18 04:44 Carbon Dioxide 37 mmol/L (22-30) H 12/03/18 04:44 11 mmol/L 12/03/18 04:44 BUN 10 mg/dL (7-17) 12/03/18 04:44 0.4 mg/dL (0.7-1.2) L 12/03/18 04:44 Estimated GFR > 60 ml/min 12/03/18 04:44 25 % 12/03/18 04:44 Glucose 125 mg/dL (65-100) H 12/03/18 04:44 Calcium 8.7 mg/dL (8.4-10.2) 12/03/18 04:44 NT-Pro-B Natriuret Pep 2263 pg/mL (0-900) H 12/03/18 04:44 Assessment and Plan Assessment and plan: 63F who pw sob, cough, chest tightness and wheezing copd exacerbation; steroids, nebs, pulmonology consults, aggressive chest PT acute hypoxic and hypercarbic resp failure; cont bipap, wean as tolerated SIRS DM; optimize insulins GERD; ppi Moderate to Severe Protein calorie Malnutrition - Nutrition consult dvt ppx- ppi
[2018-12-03] MEDS ORDERED: SODIUM CHLORIDE FLUSH SYRINGE 10 ML IV PRN (12:04)
[2018-12-03] MEDS ORDERED: ZOFRAN IV PRN (12:04)
[2018-12-03] MEDS ORDERED: D50W (25GM) Syringe IV PRN (12:04)
[2018-12-03] MEDS: DUONEB *Not for PRN Use IH SCH ×2 (14:21→21:56)
[2018-12-03] MEDS: PULMICORT IH SCH ×2 (14:22→21:56)
[2018-12-03] MEDS ORDERED: PROTONIX PO ONE (14:35)
[2018-12-03] MEDS ORDERED: COREG ONE (14:35)
[2018-12-03] MEDS ORDERED: NORVASC ONE (14:35)
[2018-12-03] MEDS ORDERED: ZESTRIL ONE (14:35)
[2018-12-03] MEDS ORDERED: SOLU-Medrol ONE (14:36)
[2018-12-03] MEDS ORDERED: APRESOLINE ONE (14:36)
[2018-12-03] MEDS: SOLU-Medrol IV SCH ×2 (14:41→21:02)
[2018-12-03] MEDS: COREG PO SCH ×2 (14:41→21:02)
[2018-12-03] MEDS: APRESOLINE PO SCH ×2 (14:41→21:02)
[2018-12-03] MEDS: ZESTRIL PO SCH (14:41)
[2018-12-03] MEDS: NORVASC PO SCH (14:41)
[2018-12-03] MEDS: PROTONIX PO SCH (14:41)
[2018-12-03] MEDS: BROVANA NEBU IH SCH ×2 (16:44→21:56)
[2018-12-03] MEDS: HumaLOG SUB-Q SCH ×2 (17:15→21:10)
[2018-12-03] MEDS: TYLENOL PO PRN (20:40)
[2018-12-03] MEDS: SODIUM CHLORIDE FLUSH SYRINGE 10 ML IV SCH (21:03)
[2018-12-03] MEDS: SINGULAIR PO SCH (21:07)
[2018-12-04 04:43] LABS: Hematocrit 41.7 % (30.3-42.9); Hemoglobin 13.1 gm/dl (10.1-14.3); Mean Corpuscular HGB Conc 31 % (30-34); Mean Corpuscular Volume 105 fl (79-97); Platelet Count 310 K/mm3 (140-440); Red Blood Count 3.97 M/mm3 (3.65-5.03); Red Cell Distribution Width 14.3 % (13.2-15.2)
[2018-12-04 05:03] LABS: BUN/Creatinine Ratio 30; Blood Urea Nitrogen 12 mg/dL (7-17); Calcium 9.2 mg/dL (8.4-10.2); Hemolysis Index 5
[2018-12-04] MEDS: SOLU-Medrol IV SCH ×3 (05:32→21:54)
[2018-12-04] MEDS: APRESOLINE PO SCH ×3 (05:32→21:36)
[2018-12-04] MEDS: DUONEB *Not for PRN Use IH SCH ×2 (06:59→20:09)
[2018-12-04] MEDS: HumaLOG SUB-Q SCH ×3 (08:46→22:00)
--- NOTE | 2018-12-04 09:54 | Consultation ---
History of Present Illness Consult date: 12/04/18 Reason for consult: COPD, other (acute on chronic respiratory failure) History of present illness: 63-year-old -[place] female, well-known history of COPD with episodic exacerbations including intubation and mechanical ventilation support. Presented to the ED with 3 days history of shortness of breath, chest tightness associated with anxiety and breathing difficulty. She denies any fever or chills. Recently bereaved , after the sudden that are her brother about the same time. She denies any chest complaints or hemoptysis. Reportedly smoking and using her medications although, it is unclear if she ran out. On ED presentation, she show with blood gases consistent with acute on chronic respiratory acidosis, hypercapnic. Initiated on BiPAP now out of the IMCU with some improvement. No visual complaints. No infiltrates on chest x-rays Past History Past Medical History: COPD (multiple intubations) Family history: CAD Medications and Allergies Allergies Allergy/AdvReac Type Severity Reaction Status Date / Time peanut Allergy Angioedema Verified 12/03/18 04:44 ipratropium bromide AdvReac Shortness Verified 12/03/18 04:44 [From Atrovent] of Breath Shellfish Allergy Unknown Uncoded 01/15/18 14:25 Home Medications Medication Instructions Recorded Confirmed Last Taken Type Carvedilol [Coreg] 6.25 mg PO BID #60 tablet 11/30/17 07/18/18 07/15/18 Rx Lisinopril [Zestril TAB] 5 mg PO QDAY #30 tablet 11/30/17 07/18/18 07/15/18 Rx Pantoprazole [Protonix TAB] 40 mg PO QDAY #30 tablet 01/17/18 07/18/18 07/15/18 Rx Montelukast [Singulair] 10 mg PO QHS #30 tablet 02/20/18 12/03/18 07/15/18 Rx Albuterol Sulfate [Ventolin HFA] 2 puff IH Q4H PRN #1 hfa.aer.ad 07/26/18 Unknown Rx Arformoterol Nebu [Brovana Nebu] 15 mcg IH Q12HRT #30 ml 07/26/18 Unknown Rx Budesonide [Pulmicort Respules] 0.5 mg IH Q12HRT #30 nebu 07/26/18 Unknown Rx Pantoprazole [Protonix TAB] 40 mg PO DAILY #30 tablet 07/26/18 Unknown Rx Prednisone [predniSONE 10 mg 10 mg PO .TAPER #1 tab.ds.pk 07/26/18 Unknown Rx (6-Day Pack, 21 Tabs)] QUEtiapine [SEROquel] 50 mg PO QHS #30 tablet 07/26/18 Unknown Rx amLODIPine [Norvasc] 10 mg PO QDAY #30 tablet 07/26/18 12/03/18 Unknown Rx hydrALAZINE [Apresoline TAB] 25 mg PO Q8HR #90 tablet 07/26/18 Unknown Rx levoFLOXacin [Levaquin TAB] 750 mg PO Q24HR #5 tablet 07/26/18 Unknown Rx ALPRAZolam 0.25 mg PO BID 12/03/18 12/03/18 Unknown History Loratadine 10 mg PO HS 12/03/18 12/03/18 Unknown History QUEtiapine 25 mg PO HS 12/03/18 12/03/18 Unknown History Active Meds: Active Medications Acetaminophen (Tylenol) 650 mg PO Q4H PRN PRN Reason: Pain MILD(1-3)/Fever >100.5/PÉREZ Last Admin: 12/03/18 20:40 Dose: 650 mg Documented by: Albuterol/Ipratropium (Duoneb *Not For Prn Use*) 1 ampul IH Q6HRT [facility] Last Admin: 12/04/18 06:59 Dose: Not Given Documented by: Amlodipine Besylate (Norvasc) 10 mg PO QDAY [facility] Last Admin: 12/03/18 14:41 Dose: 10 mg Documented by: Arformoterol Tartrate (Brovana Nebu) 15 mcg IH Q12HRT [facility] Last Admin: 12/03/18 21:56 Dose: 15 mcg Documented by: Budesonide (Pulmicort) 0.5 mg IH Q12HRT [facility] Last Admin: 12/03/18 21:56 Dose: 0.5 mg Documented by: Carvedilol (Coreg) 6.25 mg PO BID [facility] Last Admin: 12/03/18 21:02 Dose: 6.25 mg Documented by: Dextrose (D50w (25gm) Syringe) 50 ml IV PRN PRN PRN Reason: Hypoglycemia Hydralazine HCl (Apresoline) 25 mg PO Q8HR [facility] Last Admin: 12/04/18 05:32 Dose: 25 mg Documented by: Insulin Human Lispro (Humalog) 0 unit SUB-Q ACHS [facility]; Protocol Last Admin: 12/04/18 08:46 Dose: Not Given Documented by: Lisinopril (Zestril) 5 mg PO QDAY [facility] Last Admin: 12/03/18 14:41 Dose: 5 mg Documented by: Methylprednisolone Sodium Succinate (Solu-Medrol) 80 mg IV Q8HR [facility] Last Admin: 12/04/18 05:32 Dose: 80 mg Documented by: Montelukast Sodium (Singulair) 10 mg PO QHS [facility] Last Admin: 12/03/18 21:07 Dose: 10 mg Documented by: Ondansetron HCl (Zofran) 4 mg IV Q8H PRN PRN Reason: Nausea And Vomiting Pantoprazole Sodium (Protonix) 40 mg PO DAILY [facility] Last Admin: 12/03/18 14:41 Dose: 40 mg Documented by: Quetiapine Fumarate (Seroquel) 50 mg PO QHS [facility] Last Admin: 12/03/18 21:02 Dose: 50 mg Documented by: Sodium Chloride (Sodium Chloride Flush Syringe 10 Ml) 10 ml IV BID [facility] Last Admin: 12/03/18 21:03 Dose: 10 ml Documented by: Sodium Chloride (Sodium Chloride Flush Syringe 10 Ml) 10 ml IV PRN PRN PRN Reason: LINE FLUSH Review of Systems Constitutional: fatigue, weakness, no weight loss, no weight gain, no fever, no chills, no sweats, no night sweats Cardiovascular: shortness of breath, dyspnea on exertion, paroxysmal nocturnal dyspnea, no chest pain, no orthopnea, no palpitations, no rapid/irregular heart beat, no edema, no syncope, no lightheadedness Respiratory: cough, cough with sputum (yellow-green), shortness of breath, dyspnea on exertion, congestion, wheezing, no hemoptysis Gastrointestinal: no abdominal pain, no nausea, no vomiting, no diarrhea, no constipation Physical Examination Vital signs: Vital Signs Temp Pulse Resp BP Pulse Ox 97.8 F 67 20 167/64 100 12/03/18 04:38 12/03/18 04:38 12/03/18 04:38 12/03/18 04:38 12/03/18 04:38 General appearance: no acute distress, alert Eyes: non-icteric ENT: oropharynx moist Neck: supple, no JVD Effort: normal, mildly labored Ascultation: Bilateral: diminished breath sounds, wheezes, rhonchi Cardiovascular: regular rate and rhythm Gastrointestinal: normoactive bowel sounds, non-distended Integumentary: normal Extremities: no cyanosis, no edema Musculoskeletal: no deformities normal mental status, non-focal exam depressed Results - Laboratory Findings CBC and BMP: 12/04/18 03:33 12/04/18 03:33 ABG POC ABG pH 7.373 (7.35-7.45) 12/04/18 00:40 POC ABG pO2 66 (80-105) L 12/04/18 00:40 POC ABG HCO3 45.9 (22-26 mml/L) 12/04/18 00:40 POC ABG Total CO2 48 (23-27mmol/L) 12/04/18 00:40 POC ABG O2 Sat 91 12/04/18 00:40 Abnormal lab findings: Abnormal Labs 12/03/18 12/03/18 12/03/18 04:44 04:44 04:44 WBC MCV 105 H MCH 34 H Lymph % (Auto) 13.1 L Seg Neutrophils % 79.6 H Seg Neutrophils # 8.3 H POC ABG pH POC ABG pO2 Chloride Carbon Dioxide 37 H Creatinine 0.4 L Glucose 125 H POC Glucose NT-Pro-B Natriuret Pep 2263 H 12/03/18 12/03/18 12/03/18 06:29 11:39 14:15 WBC MCV MCH Lymph % (Auto) Seg Neutrophils % Seg Neutrophils # POC ABG pH 7.251 L 7.313 L 7.315 L POC ABG pO2 65 L Chloride Carbon Dioxide Creatinine Glucose POC Glucose NT-Pro-B Natriuret Pep 12/03/18 12/03/18 12/04/18 17:47 22:40 00:40 WBC MCV MCH Lymph % (Auto) Seg Neutrophils % Seg Neutrophils # POC ABG pH 7.295 L POC ABG pO2 74 L 66 L Chloride Carbon Dioxide Creatinine Glucose POC Glucose 210 H NT-Pro-B Natriuret Pep 12/04/18 12/04/18 03:33 03:33 WBC 11.1 H MCV 105 H MCH 33 H Lymph % (Auto) Seg Neutrophils % Seg Neutrophils # POC ABG pH POC ABG pO2 Chloride 97.3 L Carbon Dioxide 40 H Creatinine 0.4 L Glucose 127 H POC Glucose NT-Pro-B Natriuret Pep - Diagnostic Findings Chest x-ray: report reviewed, image reviewed Assessment and Plan Acute on chronic hypercapnic respiratory failure Acute bronchitis Bereavement Former smoker CAD Recommendations Continue BiPAP. Currently on 16/8 cm H2O with good tolerance. Wean down as tolerated Albuterol 2.5 milligram nebulizations every 4-6 hours without ipratropium Solu-Medrol 80 mg IV every 6-8 hours Monitor blood sugar Antibiotic treatment with ceftriaxone or Levaquin Sputum culture Monitor expectoration, chest PT if necessary If available, fluttered valve treatment as tolerated by patient DVT prophylaxis Discussed with patient in detail. All patient's answer.
[2018-12-04] MEDS: PULMICORT IH SCH ×2 (10:12→19:57)
[2018-12-04] MEDS: BROVANA NEBU IH SCH ×2 (10:13→20:11)
[2018-12-04] MEDS: PROVENTIL IH SCH ×4 (10:14→20:09)
[2018-12-04] MEDS: COREG PO SCH ×2 (10:41→21:53)
[2018-12-04] MEDS: NORVASC PO SCH (10:41)
[2018-12-04] MEDS: ZESTRIL PO SCH (10:42)
[2018-12-04] MEDS: SODIUM CHLORIDE FLUSH SYRINGE 10 ML IV SCH ×2 (10:42→21:56)
[2018-12-04] MEDS: PROTONIX PO SCH (10:42)
--- NOTE | 2018-12-04 11:33 | Progress Note ---
Assessment and Plan Assessment and plan: 63F who pw sob, cough, chest tightness and wheezing copd exacerbation; steroids, nebs, pulmonology consults, aggressive chest PT acute hypoxic and hypercarbic resp failure; cont bipap, wean as tolerated SIRS; no evidence of infection DM; optimize insulins GERD; ppi Moderate to Severe Protein calorie Malnutrition - Nutrition consult, encouraged balanced diet dvt ppx- lovenox smoking; cessation encouraged, counseled for 11 minutes Dispo; cont imcu care History Interval history: Review of systems Constitutional: No fevers, no malaise, no joint pains CVS: No chest pain, no orthopnea, no dyspnea on exertion, no pedal edema GI: No abdominal pain, no diarrhea, no vomiting, no constipation Respiratory: Complaining of wheezing and shortness of breath Hospitalist Physical - Physical exam Narrative exam: General.: Appears well, no distress, nontoxic HEENT: Moist mucous membranes, extraocular muscles intact, no lymphadenopathy Neck: supple Cardiac: S1-S2 heard Lungs: Wheezing Abdomen: soft , nontender, nondistended, bowel sounds positive Extremities: no edema clubbing or cyanosis Skin: no rash or lesions Neurologic: no gross focal deficits Psych: calm, and cooperative - Constitutional Vitals: Temp Pulse Resp BP Pulse Ox 98.9 F 93 H 24 120/54 97 12/04/18 04:00 12/04/18 10:42 12/04/18 10:19 12/04/18 10:42 12/04/18 03:00 Results - Labs CBC & Chem 7: 12/04/18 03:33 12/04/18 03:33 Labs: Laboratory Last Values WBC 11.1 K/mm3 (4.5-11.0) H 12/04/18 03:33 RBC 3.97 M/mm3 (3.65-5.03) 12/04/18 03:33 Hgb 13.1 gm/dl (10.1-14.3) 12/04/18 03:33 Hct 41.7 % (30.3-42.9) 12/04/18 03:33 MCV 105 fl (79-97) H 12/04/18 03:33 MCH 33 pg (28-32) H 12/04/18 03:33 MCHC 31 % (30-34) 12/04/18 03:33 RDW 14.3 % (13.2-15.2) 12/04/18 03:33 Plt Count 310 K/mm3 (140-440) 12/04/18 03:33 Lymph % (Auto) 13.1 % (13.4-35.0) L 12/03/18 04:44 Clare % (Auto) 6.9 % (0.0-7.3) 12/03/18 04:44 Eos % (Auto) 0.3 % (0.0-4.3) 12/03/18 04:44 Baso % (Auto) 0.1 % (0.0-1.8) 12/03/18 04:44 Lymph # 1.4 K/mm3 (1.2-5.4) 12/03/18 04:44 Clare # 0.7 K/mm3 (0.0-0.8) 12/03/18 04:44 Eos # 0.0 K/mm3 (0.0-0.4) 12/03/18 04:44 Baso # 0.0 K/mm3 (0.0-0.1) 12/03/18 04:44 Seg Neutrophils % Lens Cleaner 12/04/18 03:33 Seg Neutrophils # 8.3 K/mm3 (1.8-7.7) H 12/03/18 04:44 POC ABG pH 7.373 (7.35-7.45) 12/04/18 00:40 POC ABG pO2 66 (80-105) L 12/04/18 00:40 POC ABG HCO3 45.9 (22-26 mml/L) 12/04/18 00:40 POC ABG Total CO2 48 (23-27mmol/L) 12/04/18 00:40 POC ABG O2 Sat 91 12/04/18 00:40 POC ABG Base Excess 21 ((-2) - (+3)mmol/L) 12/04/18 00:40 30 % 12/04/18 00:40 Sodium 143 mmol/L (137-145) 12/04/18 03:33 Potassium 4.9 mmol/L (3.6-5.0) 12/04/18 03:33 Chloride 97.3 mmol/L (98-107) L 12/04/18 03:33 Carbon Dioxide 40 mmol/L (22-30) H 12/04/18 03:33 11 mmol/L 12/04/18 03:33 BUN 12 mg/dL (7-17) 12/04/18 03:33 0.4 mg/dL (0.7-1.2) L 12/04/18 03:33 Estimated GFR > 60 ml/min 12/04/18 03:33 30 % 12/04/18 03:33 Glucose 127 mg/dL (65-100) H 12/04/18 03:33 POC Glucose 80 (70-105) 12/03/18 21:11 Calcium 9.2 mg/dL (8.4-10.2) 12/04/18 03:33 NT-Pro-B Natriuret Pep 2263 pg/mL (0-900) H 12/03/18 04:44 Active Medications - Current Medications Current Medications: Generic Name Dose Route Start Last Admin Trade Name Freq PRN Reason Stop Dose Admin Acetaminophen 650 mg 12/03/18 12:04 12/03/18 20:40 Tylenol PO 650 mg Q4H PRN Administration Pain MILD(1-3)/Fever >100.5/PÉREZ Albuterol 2.5 mg 12/04/18 12:00 12/04/18 10:14 Proventil IH 2.5 mg Q4HRT SEBASTIAN Administration Amlodipine Besylate 10 mg 12/03/18 13:00 12/04/18 10:41 Norvasc PO 10 mg QDAY SEBASTIAN Administration Arformoterol Tartrate 15 mcg 12/03/18 13:00 12/04/18 10:13 Brovana Nebu IH 15 mcg Q12HRT SEBASTIAN Administration Budesonide 0.5 mg 12/03/18 13:00 12/04/18 10:12 Pulmicort IH 0.5 mg Q12HRT SEBASTIAN Administration Carvedilol 6.25 mg 12/03/18 13:00 12/04/18 10:41 Coreg PO 6.25 mg BID SEBASTIAN Administration Dextrose 50 ml 12/03/18 12:04 D50w (25gm) Syringe IV PRN PRN Hypoglycemia Hydralazine HCl 25 mg 12/03/18 14:00 12/04/18 05:32 Apresoline PO 25 mg Q8HR SEBASTIAN Administration Insulin Human Lispro 0 unit 12/03/18 16:30 12/04/18 08:46 Humalog SUB-Q Not Given ACHS [facility] Protocol Lisinopril 5 mg 12/03/18 13:00 12/04/18 10:42 Zestril PO 5 mg QDAY SEBASTIAN Administration Methylprednisolone Sodium Succinate 80 mg 12/03/18 14:00 12/04/18 05:32 Solu-Medrol IV 80 mg Q8HR SEBASTIAN Administration Montelukast Sodium 10 mg 12/03/18 22:00 12/03/18 21:07 Singulair PO 10 mg QHS SEBASTIAN Administration Ondansetron HCl 4 mg 12/03/18 12:04 Zofran IV Q8H PRN Nausea And Vomiting Pantoprazole Sodium 40 mg 12/03/18 13:00 12/04/18 10:42 Protonix PO 40 mg DAILY SEBASTIAN Administration Quetiapine Fumarate 50 mg 12/03/18 22:00 12/03/18 21:02 Seroquel PO 50 mg QHS SEBASTIAN Administration Sodium Chloride 10 ml 12/03/18 22:00 12/04/18 10:42 Sodium Chloride Flush Syringe 10 Ml IV 10 ml BID SEBASTIAN Administration Sodium Chloride 10 ml 12/03/18 12:04 Sodium Chloride Flush Syringe 10 Ml IV PRN PRN LINE FLUSH Nutrition/Malnutrition Assess - Dietary Evaluation Nutrition/Malnutrition Findings: Nutrition Notes Start: 12/03/18 12:13 Freq: Status: Active Protocol: Document 12/03/18 12:13 JARED (Rec: 12/03/18 12:14 JARED [id number] [email or web address]) Nutrition Notes Need for Assessment generated from: MD Order Initial or Follow up Brief Note Subjective/Other Information RD consulted for diet education. Pt in ED at this time. Nutrition Intervention Follow-Up By: 12/07/18 Additional Comments F/U: diet education needs
[2018-12-04 14:12] LABS: Basophils % (Manual) 0 % (0.0-1.8); Eosinophils % (Manual) 0 % (0.0-4.3); Monocytes % (Manual) 0 % (0.0-7.3); RBC Morphology Normal; Total Cells Counted 100
[2018-12-04 14:13] LABS: Giant Platelets Few; Platelet Estimate Consistent w Auto
[2018-12-04] MEDS: SINGULAIR PO SCH (21:54)
[2018-12-04] MEDS: TYLENOL PO PRN (23:16)
[2018-12-05] MEDS: PROVENTIL IH SCH ×5 (03:00→20:03)
[2018-12-05] MEDS: APRESOLINE PO SCH ×3 (06:02→21:08)
[2018-12-05] MEDS: SOLU-Medrol IV SCH ×3 (07:05→21:09)
[2018-12-05] MEDS: TYLENOL PO PRN ×2 (07:33→19:19)
[2018-12-05] MEDS: PULMICORT IH SCH ×2 (07:48→20:03)
[2018-12-05] MEDS: BROVANA NEBU IH SCH ×2 (07:49→21:16)
[2018-12-05] MEDS: ZESTRIL PO SCH (09:45)
[2018-12-05] MEDS: NORVASC PO SCH (09:46)
[2018-12-05] MEDS: PROTONIX PO SCH (09:46)
[2018-12-05] MEDS: COREG PO SCH ×2 (09:46→21:08)
[2018-12-05] MEDS: HumaLOG SUB-Q SCH ×4 (09:48→23:10)
--- NOTE | 2018-12-05 10:20 | Progress Note ---
Assessment and Plan 63 y/o female with acute exacerbation of COPD and acute on chronic respiratory failure. 1. Continue IV steroids at current dosing 2. Continue BID pulmicort and brovana 3. Continue scheduled short acting nebs through today and change to PRN starting tomorrow. 4. Smoking cessation 5. STable to move to regular floor. Med/Surge would be fine. Subjective Date of service: 12/05/18 Interval history: patient asleep on nasal cannula. no distress. No family at bedside. Objective Vital Signs - 12hr 12/04/18 12/04/18 12/05/18 22:58 23:00 00:00 Temperature 98.5 F Pulse Rate 84 84 72 Pulse Rate [ Bilateral] Pulse Rate [ 78 From Monitor] Respiratory 21 20 25 H Rate Respiratory Rate [Bilateral ] Blood Pressure 136/61 118/49 108/51 O2 Sat by Pulse 96 96 97 Oximetry 12/05/18 12/05/18 12/05/18 01:00 02:00 03:00 Temperature Pulse Rate 63 64 61 Pulse Rate [ 60 Bilateral] Pulse Rate [ From Monitor] Respiratory 22 22 22 Rate Respiratory 21 Rate [Bilateral ] Blood Pressure 104/53 105/54 110/59 O2 Sat by Pulse 97 97 98 Oximetry 12/05/18 12/05/18 12/05/18 03:03 04:00 05:00 Temperature 98.6 F Pulse Rate 62 67 Pulse Rate [ 60 Bilateral] Pulse Rate [ 66 From Monitor] Respiratory 23 22 Rate Respiratory 23 Rate [Bilateral ] Blood Pressure 110/53 116/62 O2 Sat by Pulse 95 95 Oximetry 12/05/18 12/05/18 12/05/18 06:00 07:00 07:50 Temperature Pulse Rate 77 Pulse Rate [ 74 74 Bilateral] Pulse Rate [ From Monitor] Respiratory 30 H Rate Respiratory 15 14 Rate [Bilateral ] Blood Pressure 128/62 O2 Sat by Pulse 98 Oximetry 12/05/18 12/05/18 12/05/18 07:51 08:00 09:45 Temperature 97.7 F Pulse Rate 75 Pulse Rate [ Bilateral] Pulse Rate [ From Monitor] Respiratory 22 Rate Respiratory Rate [Bilateral ] Blood Pressure 121/49 101/39 O2 Sat by Pulse 95 95 Oximetry 12/05/18 09:46 Temperature Pulse Rate 81 Pulse Rate [ Bilateral] Pulse Rate [ From Monitor] Respiratory Rate Respiratory Rate [Bilateral ] Blood Pressure 101/39 O2 Sat by Pulse Oximetry Constitutional: no acute distress, alert Eyes: non-icteric ENT: oropharynx moist Neck: supple, no JVD Effort: normal, mildly labored Ascultation: Bilateral: diminished breath sounds, wheezes, rhonchi Cardiovascular: regular rate and rhythm Gastrointestinal: normoactive bowel sounds, non-distended Integumentary: normal Extremities: no cyanosis, no edema Neurologic: normal mental status, non-focal exam Psychiatric: depressed CBC and BMP: 12/04/18 03:33 12/04/18 03:33 ABG, PT/INR, D-dimer: ABG POC ABG pH 7.373 (7.35-7.45) 12/04/18 00:40 POC ABG pO2 66 (80-105) L 12/04/18 00:40 POC ABG HCO3 45.9 (22-26 mml/L) 12/04/18 00:40 POC ABG Total CO2 48 (23-27mmol/L) 12/04/18 00:40 POC ABG O2 Sat 91 12/04/18 00:40 Abnormal lab findings: Abnormal Labs 12/03/18 12/03/18 12/03/18 04:44 04:44 04:44 WBC MCV 105 H MCH 34 H Lymph % (Auto) 13.1 L Seg Neutrophils % 79.6 H Seg Neuts % (Manual) Lymphocytes % (Manual) Seg Neutrophils # 8.3 H Seg Neutrophils # Man Lymphocytes # (Manual) POC ABG pH POC ABG pO2 Chloride Carbon Dioxide 37 H Creatinine 0.4 L Glucose 125 H POC Glucose NT-Pro-B Natriuret Pep 2263 H 12/03/18 12/03/18 12/03/18 06:29 11:39 14:15 WBC MCV MCH Lymph % (Auto) Seg Neutrophils % Seg Neuts % (Manual) Lymphocytes % (Manual) Seg Neutrophils # Seg Neutrophils # Man Lymphocytes # (Manual) POC ABG pH 7.251 L 7.313 L 7.315 L POC ABG pO2 65 L Chloride Carbon Dioxide Creatinine Glucose POC Glucose NT-Pro-B Natriuret Pep 12/03/18 12/03/18 12/04/18 17:47 22:40 00:40 WBC MCV MCH Lymph % (Auto) Seg Neutrophils % Seg Neuts % (Manual) Lymphocytes % (Manual) Seg Neutrophils # Seg Neutrophils # Man Lymphocytes # (Manual) POC ABG pH 7.295 L POC ABG pO2 74 L 66 L Chloride Carbon Dioxide Creatinine Glucose POC Glucose 210 H NT-Pro-B Natriuret Pep 12/04/18 12/04/18 12/04/18 03:33 03:33 08:28 WBC 11.1 H MCV 105 H MCH 33 H Lymph % (Auto) Seg Neutrophils % Seg Neuts % (Manual) 95.0 H Lymphocytes % (Manual) 5.0 L Seg Neutrophils # Seg Neutrophils # Man 10.5 H Lymphocytes # (Manual) 0.6 L POC ABG pH POC ABG pO2 Chloride 97.3 L Carbon Dioxide 40 H Creatinine 0.4 L Glucose 127 H POC Glucose 135 H NT-Pro-B Natriuret Pep 12/04/18 12/04/18 12/04/18 11:48 16:23 22:23 WBC MCV MCH Lymph % (Auto) Seg Neutrophils % Seg Neuts % (Manual) Lymphocytes % (Manual) Seg Neutrophils # Seg Neutrophils # Man Lymphocytes # (Manual) POC ABG pH POC ABG pO2 Chloride Carbon Dioxide Creatinine Glucose POC Glucose 175 H 125 H 169 H NT-Pro-B Natriuret Pep 12/05/18 08:13 WBC MCV MCH Lymph % (Auto) Seg Neutrophils % Seg Neuts % (Manual) Lymphocytes % (Manual) Seg Neutrophils # Seg Neutrophils # Man Lymphocytes # (Manual) POC ABG pH POC ABG pO2 Chloride Carbon Dioxide Creatinine Glucose POC Glucose 239 H NT-Pro-B Natriuret Pep
[2018-12-05] MEDS: SODIUM CHLORIDE FLUSH SYRINGE 10 ML IV SCH ×2 (12:23→21:09)
[2018-12-05] MEDS: SINGULAIR PO SCH (21:08)
[2018-12-06] MEDS: PROVENTIL IH SCH ×5 (00:29→15:45)
[2018-12-06] MEDS: APRESOLINE PO SCH ×2 (05:33→13:42)
[2018-12-06] MEDS: SOLU-Medrol IV SCH ×2 (05:37→13:42)
--- NOTE | 2018-12-06 06:16 | Progress Note ---
Assessment and Plan Assessment and plan: 63F who pw sob, cough, chest tightness and wheezing copd exacerbation; steroids, nebs, pulmonology consults, aggressive chest PT acute hypoxic and hypercarbic resp failure chronic hypoxic resp failure on 2l at home ; has been weaned off rescue bipap, cont oxygen by NC SIRS; no evidence of infection DM; optimize insulins GERD; ppi Moderate to Severe Protein calorie Malnutrition - Nutrition consult, encouraged balanced diet dvt ppx- lovenox smoking; cessation encouraged, counseled for 11 minutes Dispo; downgrade from IMCU to med floor today Tentative dc tomorrow if continues to improve History Interval history: Review of systems Constitutional: No fevers, no malaise, no joint pains CVS: No chest pain, no orthopnea, no dyspnea on exertion, no pedal edema GI: No abdominal pain, no diarrhea, no vomiting, no constipation Respiratory: Complaining of wheezing and shortness of breath Hospitalist Physical - Physical exam Narrative exam: General.: Appears well, no distress, nontoxic HEENT: Moist mucous membranes, extraocular muscles intact, no lymphadenopathy Neck: supple Cardiac: S1-S2 heard Lungs: Wheezing Abdomen: soft , nontender, nondistended, bowel sounds positive Extremities: no edema clubbing or cyanosis Skin: no rash or lesions Neurologic: no gross focal deficits Psych: calm, and cooperative - Constitutional Vitals: Temp Pulse Resp BP Pulse Ox 97.5 F L 79 20 120/58 98 12/05/18 23:59 12/06/18 03:43 12/06/18 03:43 12/06/18 05:33 12/05/18 23:59 Results - Labs CBC & Chem 7: 12/04/18 03:33 12/04/18 03:33 Labs: Laboratory Last Values WBC 11.1 K/mm3 (4.5-11.0) H 12/04/18 03:33 RBC 3.97 M/mm3 (3.65-5.03) 12/04/18 03:33 Hgb 13.1 gm/dl (10.1-14.3) 12/04/18 03:33 Hct 41.7 % (30.3-42.9) 12/04/18 03:33 MCV 105 fl (79-97) H 12/04/18 03:33 MCH 33 pg (28-32) H 12/04/18 03:33 MCHC 31 % (30-34) 12/04/18 03:33 RDW 14.3 % (13.2-15.2) 12/04/18 03:33 Plt Count 310 K/mm3 (140-440) 12/04/18 03:33 Lymph % (Auto) 13.1 % (13.4-35.0) L 12/03/18 04:44 [place] % (Auto) 6.9 % (0.0-7.3) 12/03/18 04:44 Eos % (Auto) 0.3 % (0.0-4.3) 12/03/18 04:44 Baso % (Auto) 0.1 % (0.0-1.8) 12/03/18 04:44 Lymph # 1.4 K/mm3 (1.2-5.4) 12/03/18 04:44 Willacy # 0.7 K/mm3 (0.0-0.8) 12/03/18 04:44 Eos # 0.0 K/mm3 (0.0-0.4) 12/03/18 04:44 Baso # 0.0 K/mm3 (0.0-0.1) 12/03/18 04:44 Add Manual Diff Complete 12/04/18 03:33 Total Counted 100 12/04/18 03:33 Seg Neutrophils % Heavy Equipment Field Mechanic 12/04/18 03:33 Seg Neuts % (Manual) 95.0 % (40.0-70.0) H 12/04/18 03:33 0 % 12/04/18 03:33 5.0 % (13.4-35.0) L 12/04/18 03:33 Reactive Lymphs % (Man) 0 % 12/04/18 03:33 0 % (0.0-7.3) 12/04/18 03:33 0 % (0.0-4.3) 12/04/18 03:33 0 % (0.0-1.8) 12/04/18 03:33 0 % 12/04/18 03:33 0 % 12/04/18 03:33 0 % 12/04/18 03:33 0 % 12/04/18 03:33 Nucleated RBC % Not Reportable 12/04/18 03:33 Seg Neutrophils # 8.3 K/mm3 (1.8-7.7) H 12/03/18 04:44 Seg Neutrophils # Man 10.5 K/mm3 (1.8-7.7) H 12/04/18 03:33 Band Neutrophils # 0.0 K/mm3 12/04/18 03:33 0.6 K/mm3 (1.2-5.4) L 12/04/18 03:33 Abs React Lymphs (Man) 0.0 K/mm3 12/04/18 03:33 0.0 K/mm3 (0.0-0.8) 12/04/18 03:33 0.0 K/mm3 (0.0-0.4) 12/04/18 03:33 0.0 K/mm3 (0.0-0.1) 12/04/18 03:33 0.0 K/mm3 12/04/18 03:33 0.0 K/mm3 12/04/18 03:33 0.0 K/mm3 12/04/18 03:33 Blast Cells # 0.0 K/mm3 12/04/18 03:33 WBC Morphology Not Reportable 12/04/18 03:33 Hypersegmented Neuts Not Reportable 12/04/18 03:33 Hyposegmented Neuts Not Reportable 12/04/18 03:33 Hypogranular Neuts Not Reportable 12/04/18 03:33 Not Reportable 12/04/18 03:33 Not Reportable 12/04/18 03:33 Not Reportable 12/04/18 03:33 Not Reportable 12/04/18 03:33 Not Reportable 12/04/18 03:33 Not Reportable 12/04/18 03:33 Consistent w auto 12/04/18 03:33 Not Reportable 12/04/18 03:33 Plt Clumps, EDTA Not Reportable 12/04/18 03:33 Not Reportable 12/04/18 03:33 Few 12/04/18 03:33 Not Reportable 12/04/18 03:33 Plt Morphology Comment Not Reportable 12/04/18 03:33 RBC Morphology Normal 12/04/18 03:33 Dimorphic RBCs Not Reportable 12/04/18 03:33 Not Reportable 12/04/18 03:33 Not Reportable 12/04/18 03:33 Not Reportable 12/04/18 03:33 Not Reportable 12/04/18 03:33 Not Reportable 12/04/18 03:33 Not Reportable 12/04/18 03:33 Not Reportable 12/04/18 03:33 Not Reportable 12/04/18 03:33 Not Reportable 12/04/18 03:33 Not Reportable 12/04/18 03:33 Not Reportable 12/04/18 03:33 Not Reportable 12/04/18 03:33 Not Reportable 12/04/18 03:33 Not Reportable 12/04/18 03:33 Not Reportable 12/04/18 03:33 Not Reportable 12/04/18 03:33 Not Reportable 12/04/18 03:33 Not Reportable 12/04/18 03:33 Not Reportable 12/04/18 03:33 Acanthocytes (Spur) Not Reportable 12/04/18 03:33 Rouleaux Not Reportable 12/04/18 03:33 Not Reportable 12/04/18 03:33 Not Reportable 12/04/18 03:33 Not Reportable 12/04/18 03:33 Not Reportable 12/04/18 03:33 Hem Pathologist Commnt No 12/04/18 03:33 POC ABG pH 7.373 (7.35-7.45) 12/04/18 00:40 POC ABG pO2 66 (80-105) L 12/04/18 00:40 POC ABG HCO3 45.9 (22-26 mml/L) 12/04/18 00:40 POC ABG Total CO2 48 (23-27mmol/L) 12/04/18 00:40 POC ABG O2 Sat 91 12/04/18 00:40 POC ABG Base Excess 21 ((-2) - (+3)mmol/L) 12/04/18 00:40 30 % 12/04/18 00:40 Sodium 143 mmol/L (137-145) 12/04/18 03:33 Potassium 4.9 mmol/L (3.6-5.0) 12/04/18 03:33 Chloride 97.3 mmol/L (98-107) L 12/04/18 03:33 Carbon Dioxide 40 mmol/L (22-30) H 12/04/18 03:33 11 mmol/L 12/04/18 03:33 BUN 12 mg/dL (7-17) 12/04/18 03:33 0.4 mg/dL (0.7-1.2) L 12/04/18 03:33 Estimated GFR > 60 ml/min 12/04/18 03:33 30 % 12/04/18 03:33 Glucose 127 mg/dL (65-100) H 12/04/18 03:33 POC Glucose 149 (70-105) H 12/05/18 22:02 5.4 % (4-6) 12/04/18 03:33 Calcium 9.2 mg/dL (8.4-10.2) 12/04/18 03:33 NT-Pro-B Natriuret Pep 2263 pg/mL (0-900) H 12/03/18 04:44 Active Medications - Current Medications Current Medications: Generic Name Dose Route Start Last Admin Trade Name Freq PRN Reason Stop Dose Admin Acetaminophen 650 mg 12/03/18 12:04 12/05/18 19:19 Tylenol PO 650 mg Q4H PRN Administration Pain MILD(1-3)/Fever >100.5/PÉREZ Albuterol 2.5 mg 12/04/18 12:00 12/06/18 03:28 Proventil IH 2.5 mg Q4HRT SEBASTIAN Administration Amlodipine Besylate 10 mg 12/03/18 13:00 12/05/18 09:46 Norvasc PO 10 mg QDAY SEBASTIAN Administration Arformoterol Tartrate 15 mcg 12/03/18 13:00 12/05/18 21:16 Brovana Nebu IH Not Given Q12HRT SEBASTIAN Budesonide 0.5 mg 12/03/18 13:00 12/05/18 20:03 Pulmicort IH 0.5 mg Q12HRT SEBASTIAN Administration Carvedilol 6.25 mg 12/03/18 13:00 12/05/18 21:08 Coreg PO 6.25 mg BID SEBASTIAN Administration Dextrose 50 ml 12/03/18 12:04 D50w (25gm) Syringe IV PRN PRN Hypoglycemia Hydralazine HCl 25 mg 12/03/18 14:00 12/06/18 05:33 Apresoline PO Not Given Q8HR SEBASTIAN Insulin Human Lispro 0 unit 12/03/18 16:30 12/05/18 23:10 Humalog SUB-Q Not Given ACHS [facility] Protocol Lisinopril 5 mg 12/03/18 13:00 12/05/18 09:45 Zestril PO 5 mg QDAY SEBASTIAN Administration Methylprednisolone Sodium Succinate 80 mg 12/03/18 14:00 12/06/18 05:37 Solu-Medrol IV 80 mg Q8HR SEBASTIAN Administration Montelukast Sodium 10 mg 12/03/18 22:00 12/05/18 21:08 Singulair PO 10 mg QHS SEBASTIAN Administration Ondansetron HCl 4 mg 12/03/18 12:04 Zofran IV Q8H PRN Nausea And Vomiting Pantoprazole Sodium 40 mg 12/03/18 13:00 12/05/18 09:46 Protonix PO 40 mg DAILY SEBASTIAN Administration Quetiapine Fumarate 50 mg 12/03/18 22:00 12/05/18 21:08 Seroquel PO 50 mg QHS SEBASTIAN Administration Sodium Chloride 10 ml 12/03/18 22:00 12/05/18 21:09 Sodium Chloride Flush Syringe 10 Ml IV 10 ml BID SEBASTIAN Administration Sodium Chloride 10 ml 12/03/18 12:04 Sodium Chloride Flush Syringe 10 Ml IV PRN PRN LINE FLUSH Nutrition/Malnutrition Assess - Dietary Evaluation Nutrition/Malnutrition Findings: Nutrition Notes Start: 12/03/18 12:13 Freq: Status: Active Protocol: Document 12/03/18 12:13 JARED (Rec: 12/03/18 12:14 JARED [id number] [email or web address]) Nutrition Notes Need for Assessment generated from: MD Order Initial or Follow up Brief Note Subjective/Other Information RD consulted for diet education. Pt in ED at this time. Nutrition Intervention Follow-Up By: 12/07/18 Additional Comments F/U: diet education needs
[2018-12-06] MEDS: HumaLOG SUB-Q SCH ×2 (07:30→11:30)
[2018-12-06] MEDS: PULMICORT IH SCH (07:36)
[2018-12-06] MEDS: BROVANA NEBU IH SCH (07:39)
[2018-12-06] MEDS: COREG PO SCH (09:13)
[2018-12-06] MEDS: ZESTRIL PO SCH (09:13)
[2018-12-06] MEDS: PROTONIX PO SCH (09:13)
[2018-12-06] MEDS: NORVASC PO SCH (09:13)
[2018-12-06] MEDS: SODIUM CHLORIDE FLUSH SYRINGE 10 ML IV SCH (09:18)
--- NOTE | 2018-12-06 12:43 | Discharge Summary ---
Providers - Providers Date of Admission: 12/03/18 08:59 Date of discharge: 12/06/18 Attending physician: KATH MEDRANO 12/03/18 12:04 Consult to Dietitian/Nutrition [CONS] Routine Physician Instructions: Reason For Exam: Reason for Consult: Diet education Consult to Physician [CONS] Routine Comment: CLD OFC TO ADV DR GUIDO OF CONSULT @1320 Consulting Provider: ANEL GUIDO Physician Instructions: Reason For Exam: copd 12/03/18 12:05 Consult to Dietitian/Nutrition [CONS] Routine Physician Instructions: Reason For Exam: Reason for Consult: Diet education Primary care physician: TEENA CROCKETT Hospitalization Condition: Fair Hospital course: Patient is 63-year-old woman with history of asthma/COPD who presents with shortness of breath chest tightness and wheezing. States that her symptoms have been going on for 3 days. Associated with mild chest tightness and difficulty breathing. She was seen and evaluated in emergency department. She was diagnosed with acute on chronic respiratory failure secondary to COPD exacerbation. Solu-medrol, Duoneb and supplemental Oxygen was started and she was admitted. Patient was evaluated by Neck Band Maker. She improved over next few days. shortness of breath resolved so was discharged home 12/06/2018. Total time spent on discharge, 32 mins Disposition: DC-01 TO HOME OR SELFCARE - Discharge Diagnoses (1) Acute and chronic respiratory failure with hypoxia Status: Acute (2) COPD exacerbation Status: Acute (3) HTN (hypertension) Status: Acute Qualifiers: Hypertension type: essential hypertension Qualified Code(s): I10 - Essential (primary) hypertension (4) GERD (gastroesophageal reflux disease) Status: Acute (5) SIRS (systemic inflammatory response syndrome) Status: Acute Core Measure Documentation - Palliative Care Palliative Care/ Comfort Measures: Not Applicable - Core Measures Any of the following diagnoses?: none Exam - Constitutional Vitals: Temp Pulse Resp BP Pulse Ox 99.0 F 74 18 110/56 95 12/06/18 06:00 12/06/18 11:51 12/06/18 11:51 12/06/18 06:00 12/06/18 07:40 Plan Activity: no restrictions Diet: low fat, low cholesterol, low salt Additional Instructions: 1.Follow up with PCP or [facility] in 1 week. 2Continue home Oxygen. 3.Follow up with Dr. Mancilla in 1 week. Follow up with: TEENA CROCKETT MD [Primary Care Provider] - 3-5 Days Prescriptions: Prednisone [predniSONE 10 mg (6-Day Pack, 21 Tabs)] 10 mg PO .TAPER #1 tab.ds.pk
--- NOTE | 2018-12-06 12:50 | Progress Note ---
Assessment and Plan 63 y/o female with acute exacerbation of COPD and acute on chronic respiratory failure. 1. Would be ok with changing to oral prednisone, 60 mg daily and taper from there over 2 week time span 2. Resume home COPD regimen 3. Continue supplemental O2 4. Smoking cessation. 5. No objection to discharge if done today. Subjective Date of service: 12/06/18 Interval history: No acute events. Remains on nasal cannula Objective Vital Signs - 12hr 12/06/18 12/06/18 12/06/18 03:29 03:43 05:33 Temperature Pulse Rate Pulse Rate [ 73 79 Bilateral] Respiratory Rate Respiratory 18 20 Rate [Bilateral ] Blood Pressure Blood Pressure 120/58 [Left] O2 Sat by Pulse Oximetry 12/06/18 12/06/18 12/06/18 06:00 07:40 11:50 Temperature 99.0 F Pulse Rate 76 Pulse Rate [ 68 72 Bilateral] Respiratory 18 Rate Respiratory 20 18 Rate [Bilateral ] Blood Pressure 110/56 Blood Pressure [Left] O2 Sat by Pulse 96 95 Oximetry 12/06/18 11:51 Temperature Pulse Rate Pulse Rate [ 74 Bilateral] Respiratory Rate Respiratory 18 Rate [Bilateral ] Blood Pressure Blood Pressure [Left] O2 Sat by Pulse Oximetry Constitutional: no acute distress, alert Eyes: non-icteric ENT: oropharynx moist Neck: supple, no JVD Effort: normal, mildly labored Ascultation: Bilateral: diminished breath sounds, wheezes, rhonchi Cardiovascular: regular rate and rhythm Gastrointestinal: normoactive bowel sounds, non-distended Integumentary: normal Extremities: no cyanosis, no edema Neurologic: normal mental status, non-focal exam Psychiatric: depressed CBC and BMP: 12/04/18 03:33 12/04/18 03:33 ABG, PT/INR, D-dimer: ABG POC ABG pH 7.373 (7.35-7.45) 12/04/18 00:40 POC ABG pO2 66 (80-105) L 12/04/18 00:40 POC ABG HCO3 45.9 (22-26 mml/L) 12/04/18 00:40 POC ABG Total CO2 48 (23-27mmol/L) 12/04/18 00:40 POC ABG O2 Sat 91 12/04/18 00:40 Abnormal lab findings: Abnormal Labs 0612/03/18 12/03/18 04:44 04:44 04:44 WBC MCV 105 H MCH 34 H Lymph % (Auto) 13.1 L Seg Neutrophils % 79.6 H Seg Neuts % (Manual) Lymphocytes % (Manual) Seg Neutrophils # 8.3 H Seg Neutrophils # Man Lymphocytes # (Manual) POC ABG pH POC ABG pO2 Chloride Carbon Dioxide 37 H Creatinine 0.4 L Glucose 125 H POC Glucose NT-Pro-B Natriuret Pep 2263 H 12/03/18 12/03/18 12/03/18 06:29 11:39 14:15 WBC MCV MCH Lymph % (Auto) Seg Neutrophils % Seg Neuts % (Manual) Lymphocytes % (Manual) Seg Neutrophils # Seg Neutrophils # Man Lymphocytes # (Manual) POC ABG pH 7.251 L 7.313 L 7.315 L POC ABG pO2 65 L Chloride Carbon Dioxide Creatinine Glucose POC Glucose NT-Pro-B Natriuret Pep 12/03/18 12/03/18 12/04/18 17:47 22:40 00:40 WBC MCV MCH Lymph % (Auto) Seg Neutrophils % Seg Neuts % (Manual) Lymphocytes % (Manual) Seg Neutrophils # Seg Neutrophils # Man Lymphocytes # (Manual) POC ABG pH 7.295 L POC ABG pO2 74 L 66 L Chloride Carbon Dioxide Creatinine Glucose POC Glucose 210 H NT-Pro-B Natriuret Pep 12/04/18 12/04/18 12/04/18 03:33 03:33 08:28 WBC 11.1 H MCV 105 H MCH 33 H Lymph % (Auto) Seg Neutrophils % Seg Neuts % (Manual) 95.0 H Lymphocytes % (Manual) 5.0 L Seg Neutrophils # Seg Neutrophils # Man 10.5 H Lymphocytes # (Manual) 0.6 L POC ABG pH POC ABG pO2 Chloride 97.3 L Carbon Dioxide 40 H Creatinine 0.4 L Glucose 127 H POC Glucose 135 H NT-Pro-B Natriuret Pep 12/04/18 12/04/18 12/04/18 11:48 16:23 22:23 WBC MCV MCH Lymph % (Auto) Seg Neutrophils % Seg Neuts % (Manual) Lymphocytes % (Manual) Seg Neutrophils # Seg Neutrophils # Man Lymphocytes # (Manual) POC ABG pH POC ABG pO2 Chloride Carbon Dioxide Creatinine Glucose POC Glucose 175 H 125 H 169 H NT-Pro-B Natriuret Pep 12/05/18 12/05/18 12/05/18 08:13 11:52 17:33 WBC MCV MCH Lymph % (Auto) Seg Neutrophils % Seg Neuts % (Manual) Lymphocytes % (Manual) Seg Neutrophils # Seg Neutrophils # Man Lymphocytes # (Manual) POC ABG pH POC ABG pO2 Chloride Carbon Dioxide Creatinine Glucose POC Glucose 239 H 138 H 202 H NT-Pro-B Natriuret Pep 12/05/18 12/06/18 12/06/18 22:02 08:43 11:29 WBC MCV MCH Lymph % (Auto) Seg Neutrophils % Seg Neuts % (Manual) Lymphocytes % (Manual) Seg Neutrophils # Seg Neutrophils # Man Lymphocytes # (Manual) POC ABG pH POC ABG pO2 Chloride Carbon Dioxide Creatinine Glucose POC Glucose 149 H 120 H 140 H NT-Pro-B Natriuret Pep
[2018-12-06 17:37] VITALS: BP 135/67
== END 2018-12-06 16:40 | disposition home or self-care (01) | DRG 189 ==
LOC: ED 04:29 → 4A 08:59 → IMCU 15:12 → 3A 12-05 15:53
PROVIDERS: ADMIT Internal Medicine; ATTEND Internal Medicine
PROC: 4A033R1 Measurement of Arterial Saturation, Peripheral, Percutaneous Approach (ICD-10-PCS; principal; 2018-12-03)
PROC: 5A09357 Assistance with Respiratory Ventilation, Less than 24 Consecutive Hours, Continuous Positive Airway Pressure (ICD-10-PCS; 2018-12-03)
PROC: 5A09357 Assistance with Respiratory Ventilation, Less than 24 Consecutive Hours, Continuous Positive Airway Pressure (ICD-10-PCS; 2018-12-04)
DX: J96.21 Acute and chronic respiratory failure with hypoxia (principal); E43 Unspecified severe protein-calorie malnutrition; J44.1 Chronic obstructive pulmonary disease with (acute) exacerbation; R65.10 Systemic inflammatory response syndrome (SIRS) of non-infectious origin without acute organ dysfunction; J44.0 Chronic obstructive pulmonary disease with (acute) lower respiratory infection; J96.22 Acute and chronic respiratory failure with hypercapnia; J20.9 Acute bronchitis, unspecified; I25.10 Atherosclerotic heart disease of native coronary artery without angina pectoris; K21.9 Gastro-esophageal reflux disease without esophagitis; I10 Essential (primary) hypertension; Z87.891 Personal history of nicotine dependence; Z88.8 Allergy status to other drugs, medicaments and biological substances; Z91.010 Allergy to peanuts; Z91.013 Allergy to seafood; Z79.51 Long term (current) use of inhaled steroids; Z79.899 Other long term (current) drug therapy; Z68.20 Body mass index [BMI] 20.0-20.9, adult; Z71.6 Tobacco abuse counseling; Z99.81 Dependence on supplemental oxygen
CPT/HCPCS: 36415; 36600; 71045; 80048; 82803; 82962; 83036; 83880; 85007; 85025; 94640; 94660; 94760; G0378; J1815; J2920; J2930; J7030

== ENCOUNTER 2019-01-31 11:36 | Inpatient (IN) | payer MEDICARE ==
--- NOTE | 2019-01-31 13:09 | XRay Report ---
CHEST 1 VIEW INDICATION: sob COMPARISON: 07/20/2018 FINDINGS: Support devices: None Heart: Stable. Lungs/Pleura: Mild hyperinflation and chronic appearing interstitial disease. More prominent opacity in the left base is most likely atelectasis. IMPRESSION: 1. Chronic interstitial disease but no convincing evidence of acute superimposed disease. Signer Name: Patel Zamora MD Signed: 01/31/2019 1:04 PM Workstation Name: [id number]
[2019-01-31 13:10] LABS: Eosinophils % (Auto) 0.2 % (0.0-4.3); Monocytes # (Auto) 0.8 K/mm3 (0.0-0.8); Monocytes % (Auto) 5.9 % (0.0-7.3)
[2019-01-31 13:20] LABS: Basophils % (Auto) 0.1 % (0.0-1.8); Hematocrit 43.3 % (30.3-42.9); Hemoglobin 13.3 gm/dl (10.1-14.3); Lymphocytes # (Auto) 1.1 K/mm3 (1.2-5.4); Mean Corpuscular HGB Conc 31 % (30-34); Mean Corpuscular Volume 106 fl (79-97); Platelet Count 214 K/mm3 (140-440); Red Cell Distribution Width 14.4 % (13.2-15.2)
[2019-01-31 13:21] LABS: INR 0.88 (0.87-1.13); Partial Thromboplastin Time 25.6 Sec. (24.2-36.6)
[2019-01-31 13:30] LABS: BUN/Creatinine Ratio 37; Blood Urea Nitrogen 11 mg/dL (7-17); Calcium 9.5 mg/dL (8.4-10.2); Hemolysis Index 13
[2019-01-31 14:12] LABS: Bilirubin,Urine NEG (Negative); Blood,Urine NEG (Negative); Color,Urine Yellow (Yellow); Mucus,Urine FEW /HPF; Urobilinogen,Urine < 2.0 mg/dL (<2.0)
[2019-01-31] MEDS ORDERED: SOLU-Medrol IV ONE (15:36)
--- NOTE | 2019-01-31 15:45 | Emergency Department Report ---
ED Shortness of Breath HPI - General Chief Complaint: Dyspnea/Respdistress Stated Complaint: ANTHONY Time Seen by Provider: 01/31/19 12:10 Source: EMS Mode of arrival: Ambulatory Limitations: No Limitations - History of Present Illness Initial Comments: 63-year-old female, history of COPD on 3 L O2 chronically, presents with COPD exacerbation. Patient states she has been feeling weak, lightheaded over the last 3 days. Today, patient became lightheaded and fell down, she wished to get up she fell again. Patient states she was helped her friend, did not hit her head. Patient states later she began to have wheezing and shortness of breath, so EMS was called. Nebulizer treatment was given. Patient states she is feeling better at this time. Denies chest pain, fever. MD Complaint: shortness of breath -: This morning Severity: moderate Consistency: constant Improves With: bronchodilators Known History Of: COPD Treatments Prior to Arrival: bronchodilator - Related Data Home Oxygen Therapy: Yes Home Oxygen Amount: 3 Liters Home Medications Medication Instructions Recorded Confirmed Last Taken ALPRAZolam 0.25 mg PO BID 12/03/18 01/31/19 01/29/19 Previous Rx's Medication Instructions Recorded Last Taken Type Carvedilol [Coreg] 6.25 mg PO BID #60 tablet 11/30/17 01/29/19 Rx Lisinopril [Zestril TAB] 5 mg PO QDAY #30 tablet 11/30/17 01/29/19 Rx Montelukast [Singulair] 10 mg PO QHS #30 tablet 02/20/18 01/29/19 Rx Albuterol Sulfate [Ventolin HFA] 2 puff IH Q4H PRN #1 hfa.aer.ad 07/26/18 01/30/19 Rx Arformoterol Nebu [Brovana Nebu] 15 mcg IH Q12HRT #30 ml 07/26/18 01/30/19 Rx Budesonide [Pulmicort Respules] 0.5 mg IH Q12HRT #30 nebu 07/26/18 01/30/19 Rx QUEtiapine [SEROquel] 50 mg PO QHS #30 tablet 07/26/18 01/29/19 Rx amLODIPine [Norvasc] 10 mg PO QDAY #30 tablet 07/26/18 01/29/19 Rx hydrALAZINE [Apresoline TAB] 25 mg PO Q8HR #90 tablet 07/26/18 01/29/19 Rx Prednisone [predniSONE 10 mg 10 mg PO .TAPER #1 tab.ds.pk 12/06/18 01/29/19 Rx (6-Day Pack, 21 Tabs)] Allergies Allergy/AdvReac Type Severity Reaction Status Date / Time peanut Allergy Angioedema Verified 12/03/18 04:44 ipratropium bromide AdvReac Shortness Verified 12/03/18 04:44 [From Atrovent] of Breath Shellfish Allergy Unknown Uncoded 01/15/18 14:25 ED Review of Systems ROS: Stated complaint: ANTHONY Other details as noted in HPI Comment: All other systems reviewed and negative Constitutional: denies: chills, fever Respiratory: shortness of breath Cardiovascular: denies: chest pain Gastrointestinal: denies: nausea, vomiting Neurological: other (reports lightheadedness) ED Past Medical Hx - Past Medical History Previous Medical History?: Yes Hx Hypertension: Yes Hx CVA: No Hx Heart Attack/AMI: No Hx Congestive Heart Failure: No Hx Diabetes: No Hx Deep Vein Thrombosis: No Hx Pulmonary Embolism: No Hx GERD: No Hx Liver Disease: No Hx Renal Disease: No Hx of Cancer: No Hx Sickle Cell Disease: No Hx Arthritis: No Hx Headaches / Migraines: No Hx Seizures: No Hx Kidney Stones: No Hx Psychiatric Treatment: No Hx Asthma: Yes Hx COPD: Yes Hx Tuberculosis: No Hx Dementia: No Hx HIV: No Additional medical history: hx intubation - Surgical History Past Surgical History?: No Hx Coronary Stent: No Hx Open Heart Surgery: No Hx Pacemaker: No Hx Internal Defibrillator: No Hx Cholecystectomy: No Hx Appendectomy: No Hx Breast Surgery: No - Social History Smoking Status: Former Smoker Substance Use Type: None - Medications Home Medications: Home Medications Medication Instructions Recorded Confirmed Last Taken Type Carvedilol [Coreg] 6.25 mg PO BID #60 tablet 11/30/17 01/31/19 01/29/19 Rx Lisinopril [Zestril TAB] 5 mg PO QDAY #30 tablet 11/30/17 01/31/19 01/29/19 Rx Montelukast [Singulair] 10 mg PO QHS #30 tablet 02/20/18 01/31/19 01/29/19 Rx Albuterol Sulfate [Ventolin HFA] 2 puff IH Q4H PRN #1 hfa.aer.ad 07/26/18 01/31/19 01/30/19 Rx Arformoterol Nebu [Brovana Nebu] 15 mcg IH Q12HRT #30 ml 07/26/18 01/31/19 01/30/19 Rx Budesonide [Pulmicort Respules] 0.5 mg IH Q12HRT #30 nebu 07/26/18 01/31/19 01/30/19 Rx QUEtiapine [SEROquel] 50 mg PO QHS #30 tablet 07/26/18 01/31/19 01/29/19 Rx amLODIPine [Norvasc] 10 mg PO QDAY #30 tablet 07/26/18 01/31/19 01/29/19 Rx hydrALAZINE [Apresoline TAB] 25 mg PO Q8HR #90 tablet 07/26/18 01/31/19 01/29/19 Rx ALPRAZolam 0.25 mg PO BID 12/03/18 01/31/19 01/29/19 History Prednisone [predniSONE 10 mg 10 mg PO .TAPER #1 tab.ds.pk 12/06/18 01/31/19 01/29/19 Rx (6-Day Pack, 21 Tabs)] ED Physical Exam - General Limitations: No Limitations General appearance: alert, in no apparent distress - Head Head exam: Present: atraumatic, normocephalic - Eye Eye exam: Present: normal appearance, PERRL, EOMI - ENT ENT exam: Present: mucous membranes moist - Neck Neck exam: Present: normal inspection - Respiratory Respiratory exam: Present: normal lung sounds bilaterally. Absent: respiratory distress - Cardiovascular Cardiovascular Exam: Present: regular rate, normal rhythm - GI/Abdominal GI/Abdominal exam: Present: soft. Absent: distended, tenderness - Extremities Exam Extremities exam: Present: normal inspection - Neurological Exam Neurological exam: Present: alert, altered, other (responses are slow, seems confused on some questions). Absent: CN II-XII intact, motor sensory deficit - Psychiatric Psychiatric exam: Present: normal affect, normal mood - Skin Skin exam: Present: warm, dry, intact, normal color ED Course Vital Signs 01/31/19 01/31/19 01/31/19 11:44 11:55 11:56 Temperature 99.1 F 99.0 F Pulse Rate 99 H 87 Pulse Rate [ Anterior Bilateral Throughout] Respiratory 12 24 23 Rate Respiratory Rate [Anterior Bilateral Throughout] Blood Pressure 140/71 Blood Pressure 140/71 151/69 [Right] O2 Sat by Pulse 99 98 98 Oximetry 01/31/19 01/31/19 01/31/19 12:44 12:46 13:36 Temperature Pulse Rate 96 H 85 89 Pulse Rate [ Anterior Bilateral Throughout] Respiratory 13 17 21 Rate Respiratory Rate [Anterior Bilateral Throughout] Blood Pressure Blood Pressure 149/72 [Right] O2 Sat by Pulse 93 93 94 Oximetry 01/31/19 01/31/19 01/31/19 14:00 15:00 15:30 Temperature Pulse Rate 79 89 96 H Pulse Rate [ Anterior Bilateral Throughout] Respiratory 20 21 12 Rate Respiratory Rate [Anterior Bilateral Throughout] Blood Pressure 149/72 142/72 Blood Pressure 122/84 [Right] O2 Sat by Pulse 97 97 94 Oximetry 01/31/19 01/31/19 01/31/19 15:33 15:59 16:16 Temperature Pulse Rate 94 H 102 H Pulse Rate [ 93 H Anterior Bilateral Throughout] Respiratory 21 18 Rate Respiratory 30 H Rate [Anterior Bilateral Throughout] Blood Pressure 142/72 136/59 Blood Pressure [Right] O2 Sat by Pulse 94 92 Oximetry 01/31/19 01/31/19 01/31/19 17:07 17:16 17:30 Temperature Pulse Rate 102 H 91 H 90 Pulse Rate [ Anterior Bilateral Throughout] Respiratory 18 40 H 38 H Rate Respiratory Rate [Anterior Bilateral Throughout] Blood Pressure 138/58 138/58 Blood Pressure 136/59 [Right] O2 Sat by Pulse 92 88 88 Oximetry 01/31/19 01/31/19 01/31/19 17:46 18:00 18:16 Temperature Pulse Rate 90 82 87 Pulse Rate [ Anterior Bilateral Throughout] Respiratory 36 H 27 H 25 H Rate Respiratory Rate [Anterior Bilateral Throughout] Blood Pressure 138/58 131/64 131/64 Blood Pressure 131/64 [Right] O2 Sat by Pulse 85 87 88 Oximetry 01/31/19 01/31/19 01/31/19 18:30 18:46 19:00 Temperature Pulse Rate 92 H 92 H 87 Pulse Rate [ Anterior Bilateral Throughout] Respiratory 24 22 13 Rate Respiratory Rate [Anterior Bilateral Throughout] Blood Pressure 131/64 131/64 131/64 Blood Pressure [Right] O2 Sat by Pulse 91 95 91 Oximetry 01/31/19 01/31/19 01/31/19 19:16 19:30 19:46 Temperature Pulse Rate 95 H 86 89 Pulse Rate [ Anterior Bilateral Throughout] Respiratory 27 H 14 24 Rate Respiratory Rate [Anterior Bilateral Throughout] Blood Pressure 139/69 139/69 139/69 Blood Pressure [Right] O2 Sat by Pulse 100 94 93 Oximetry 01/31/19 01/31/19 01/31/19 20:00 20:16 20:30 Temperature Pulse Rate 84 91 H 95 H Pulse Rate [ Anterior Bilateral Throughout] Respiratory 27 H 27 H 17 Rate Respiratory Rate [Anterior Bilateral Throughout] Blood Pressure 125/66 125/66 125/66 Blood Pressure [Right] O2 Sat by Pulse 95 94 95 Oximetry ED Medical Decision Making - Lab Data Result diagrams: 01/31/19 12:55 01/31/19 12:55 - EKG Data -: EKG Interpreted by Hi EKG shows normal: sinus rhythm, axis, intervals, QRS complexes, ST-T waves Rate: normal - EKG Data Interpretation: no acute changes - Radiology Data Radiology results: report reviewed, image reviewed - Medical Decision Making - generalized weakness, COPD exacerbation - ABG shows hypercarbia and hyoxemia on 3L O2 - BiPAP initiated - nebs and solumedrol given - remainder of labs normal, CXR normal - admit to hospitalist - Differential Diagnosis COPD, pneumonia, pulm edema Critical care attestation.: If time is entered above; I have spent that time in minutes in the direct care of this critically ill patient, excluding procedure time. ED Disposition Clinical Impression: Acute and chronic respiratory failure with hypoxia, Acute and chronic respiratory failure with hypercapnia, COPD exacerbation Disposition: OP ADMIT IP TO THIS HOSP Is pt being admited?: Yes Condition: Stable Time of Disposition: 15:45
[2019-01-31] MEDS ORDERED: PROVENTIL IH ONE ×2 (15:55→15:56)
[2019-01-31] MEDS ORDERED: ATROVENT IH ONE ×2 (15:55→15:56)
--- NOTE | 2019-01-31 16:01 | XRay Report ---
Left foot, 3 views INDICATION: pain, injury. COMPARISON: None. IMPRESSION: Mild osteopenia is suspected. No evidence for acute osseous injury or joint pathology. The soft tissues are unremarkable. Lumbosacral spine, 3 views INDICATION: pain, injury. COMPARISON: None. IMPRESSION: Mild osteopenia is suspected. Normal alignment. No significant discogenic DJD or facet a rthropathy. No acute osseous or soft tissue abnormality. Signer Name: Sandeep Navarrete Jr, MD Signed: 01/31/2019 3:57 PM Workstation Name: [id number]
[2019-01-31] MEDS ORDERED: ZOFRAN IV PRN (18:50)
[2019-01-31] MEDS ORDERED: SODIUM CHLORIDE FLUSH SYRINGE 10 ML IV PRN (18:50)
[2019-01-31] MEDS ORDERED: TYLENOL PO PRN (18:50)
[2019-01-31] MEDS ORDERED: PERCOCET 5/325 PO PRN (18:50)
[2019-01-31] MEDS ORDERED: DILAUDID IV PRN (18:50)
[2019-01-31] MEDS ORDERED: REGLAN IV PRN (18:50)
[2019-01-31] MEDS ORDERED: PROVENTIL IH PRN (18:53)
[2019-01-31] MEDS ORDERED: NACL 0.9% 1000 ML 1,000 ML IV SCH (19:00)
--- NOTE | 2019-01-31 19:43 | Consultation ---
History of Present Illness Consult date: 01/31/19 Reason for consult: dyspnea, cough, asthma History of present illness: PULMONARY AND CRITICAL CARE CONSULTATION. DR. PRASAD THANK YOU FOR ASKING US TO PARTICIPATE IN THE CARE OF THIS PATIENT. 63-year-old female, history of asthma on 3 L O2 chronically, presents with asthma exacerbation. Patient states she has been feeling weak, lightheaded over the last 3 days. Today, patient became lightheaded and fell down, she wished to get up she fell again. Patient states she was helped her friend, did not hit her head. Patient states later she began to have wheezing and shortness of breath, so EMS was called. Nebulizer treatment was given. Patient states she is feeling better at this time. Denies chest pain, fever. Patient says she has history of Asthma. Patient has no history of smoking, alcohol or drug abuse. 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 Allergic to Peanut, shell fish and Ipatropium bromide. Patient is on BIPAP at this time. 07/04, rate 10, FIO2 35%. O2 saturation running 96%. Chest xray reported chronic interstitial changes. Past History Past Medical History: COPD, hypertension Medications and Allergies Allergies Allergy/AdvReac Type Severity Reaction Status Date / Time peanut Allergy Angioedema Verified 12/03/18 04:44 ipratropium bromide AdvReac Shortness Verified 12/03/18 04:44 [From Atrovent] of Breath Shellfish Allergy Unknown Uncoded 01/15/18 14:25 Home Medications Medication Instructions Recorded Confirmed Last Taken Type Carvedilol [Coreg] 6.25 mg PO BID #60 tablet 11/30/17 01/31/19 01/29/19 Rx Lisinopril [Zestril TAB] 5 mg PO QDAY #30 tablet 11/30/17 01/31/19 01/29/19 Rx Montelukast [Singulair] 10 mg PO QHS #30 tablet 02/20/18 01/31/19 01/29/19 Rx Albuterol Sulfate [Ventolin HFA] 2 puff IH Q4H PRN #1 hfa.aer.ad 07/26/18 01/31/19 01/30/19 Rx Arformoterol Nebu [Brovana Nebu] 15 mcg IH Q12HRT #30 ml 07/26/18 01/31/19 01/30/19 Rx Budesonide [Pulmicort Respules] 0.5 mg IH Q12HRT #30 nebu 07/26/18 01/31/19 01/30/19 Rx QUEtiapine [SEROquel] 50 mg PO QHS #30 tablet 07/26/18 01/31/19 01/29/19 Rx amLODIPine [Norvasc] 10 mg PO QDAY #30 tablet 07/26/18 01/31/19 01/29/19 Rx hydrALAZINE [Apresoline TAB] 25 mg PO Q8HR #90 tablet 07/26/18 01/31/19 01/29/19 Rx ALPRAZolam 0.25 mg PO BID 12/03/18 01/31/19 01/29/19 History Prednisone [predniSONE 10 mg 10 mg PO .TAPER #1 tab.ds.pk 12/06/18 01/31/19 01/29/19 Rx (6-Day Pack, 21 Tabs)] Active Meds: Active Medications Acetaminophen (Tylenol) 650 mg PO Q4H PRN PRN Reason: Pain MILD(1-3)/Fever >100.5/PÉREZ Albuterol (Proventil) 2.5 mg IH Q4HRT PRN PRN Reason: Shortness Of Breath Albuterol/Ipratropium (Duoneb *Not For Prn Use*) 1 ampul IH QIDRT [facility] Amlodipine Besylate (Norvasc) 10 mg PO QDAY [facility] Arformoterol Tartrate (Brovana Nebu) 15 mcg IH Q12HRT [facility] Budesonide (Pulmicort) 0.5 mg IH Q12HRT [facility] Carvedilol (Coreg) 6.25 mg PO BID [facility] Famotidine (Pepcid) 20 mg IV BID [facility] Hydralazine HCl (Apresoline) 25 mg PO Q8HR [facility] Hydromorphone HCl (Dilaudid) 0.5 mg IV Q3H PRN PRN Reason: Pain , Severe (7-10) Sodium Chloride (Nacl 0.9% 1000 Ml) 1,000 mls @ 42 mls/hr IV DIRECT [facility] Azithromycin 500 mg/ Sodium (Chloride) 250 mls @ 250 mls/hr IV Q24HR [facility]; Protocol Ceftriaxone Sodium (Rocephin/Ns 2 Gm/100 Ml) 2 gm in 100 mls @ 200 mls/hr IV Q24HR [facility]; Protocol Lisinopril (Zestril) 5 mg PO QDAY [facility] Methylprednisolone Sodium Succinate (Solu-Medrol) 125 mg IV Q8HR [facility] Metoclopramide HCl (Reglan) 10 mg IV Q6H PRN PRN Reason: Nausea And Vomiting Miscellaneous Medication (Alprazolam) 0.25 mg PO BID [facility] Montelukast Sodium (Singulair) 10 mg PO QHS [facility] Ondansetron HCl (Zofran) 4 mg IV Q8H PRN PRN Reason: Nausea And Vomiting Oxycodone/Acetaminophen (Percocet 5/325) 1 tab PO Q6H PRN PRN Reason: Pain, Moderate (4-6) Quetiapine Fumarate (Seroquel) 50 mg PO QHS [facility] Sodium Chloride (Sodium Chloride Flush Syringe 10 Ml) 10 ml IV BID [facility] Sodium Chloride (Sodium Chloride Flush Syringe 10 Ml) 10 ml IV PRN PRN PRN Reason: LINE FLUSH Review of Systems All systems: negative Physical Examination Vital signs: Vital Signs Temp Pulse Resp BP Pulse Ox 99.1 F 99 H 10 L 140/71 100 01/31/19 11:44 01/31/19 11:44 01/31/19 11:44 01/31/19 11:44 01/31/19 11:44 General appearance: no acute distress, alert, other (Resting on BIPAP.) Eyes: non-icteric ENT: oropharynx moist Neck: supple, no JVD Ascultation: Bilateral: diminished breath sounds, other (Prolonged expiratory phase.) Cardiovascular: regular rate and rhythm Gastrointestinal: normoactive bowel sounds, soft Integumentary: normal Extremities: no cyanosis, no edema Musculoskeletal: no deformities Gait: other (Unable to assess, she is in the bed.) normal mental status, non-focal exam, pupils equal and round, CN II-XII normal mood appropriate Results - Laboratory Findings CBC and BMP: 01/31/19 12:55 01/31/19 12:55 ABG POC ABG pH 7.381 (7.35-7.45) 01/31/19 15:00 POC ABG pO2 50 (80-105) L 01/31/19 15:00 POC ABG HCO3 57.1 (22-26 mml/L) 01/31/19 15:00 POC ABG Total CO2 > 50 (23-27mmol/L) 01/31/19 15:00 POC ABG O2 Sat 80 01/31/19 15:00 PT/INR, D-dimer PT 11.7 Sec. (12.2-14.9) L 01/31/19 12:55 INR 0.88 (0.87-1.13) 01/31/19 12:55 Abnormal lab findings: Abnormal Labs 01/31/19 01/31/19 01/31/19 12:55 12:55 12:55 WBC 12.7 H Hct 43.3 H MCV 106 H MCH 33 H Lymph % (Auto) 9.0 L Lymph # 1.1 L Seg Neutrophils % 84.8 H Seg Neutrophils # 10.8 H PT 11.7 L POC ABG pO2 Sodium 146 H Chloride 89.9 L Carbon Dioxide 48 H* Creatinine 0.3 L Urine pH U Epithel Cells (Auto) 01/31/19 01/31/19 13:42 15:00 WBC Hct MCV MCH Lymph % (Auto) Lymph # Seg Neutrophils % Seg Neutrophils # PT POC ABG pO2 50 L Sodium Chloride Carbon Dioxide Creatinine Urine pH 9.0 H U Epithel Cells (Auto) 15.0 H - Diagnostic Findings Chest x-ray: report reviewed (Chronic interstitial changes. No superimposed acute infiltrates.), image reviewed Assessment and Plan 63-year-old female, history of COPD on 3 L O2 chronically, presents with COPD exacerbation. Patient states she has been feeling weak, lightheaded over the last 3 days. Today, patient became lightheaded and fell down, she wished to get up she fell again. Patient states she was helped her friend, did not hit her head. Patient states later she began to have wheezing and shortness of breath, so EMS was called. Nebulizer treatment was given. Patient states she is feeling better at this time. Denies chest pain, fever Patient says she has history of Asthma. Patient has no history of smoking, alcohol or drug abuse. 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 Allergic to Peanut, shell fish and Ipatropium bromide. Patient is on BIPAP at this time. 18/10, rate 10, FIO2 35%. O2 saturation running 96%. Chest xray reported chronic interstitial changes. - Patient Problems (1) Acute and chronic respiratory failure with hypercapnia Current Visit: Yes Status: Acute Plan to address problem: BIPAP 18/10, rate 10, FIO2 35%. Albuterol/atrovent aerosol treatments q 6 hours. Continue I/V solumedrol. Continue ceftrioxone and azythromycin. Continue famotidine. Recommend DVT prophylaxis. (2) GERD (gastroesophageal reflux disease) Current Visit: No Status: Acute Qualifiers: Esophagitis presence: without esophagitis Qualified Code(s): K21.9 - Gastro-esophageal reflux disease without esophagitis Plan to address problem: Patient is on Famotidine. (3) HTN (hypertension) Current Visit: No Status: Acute Qualifiers: Hypertension type: essential hypertension Qualified Code(s): I10 - Essential (primary) hypertension Plan to address problem: Management as per primary care. (4) Acute severe exacerbation of asthma Current Visit: Yes Status: Acute Plan to address problem: IPAP 18/10, rate 10, FIO2 35%. Albuterol/atrovent aerosol treatments q 6 hours. Continue I/V solumedrol. Continue ceftrioxone and azythromycin. Continue famotidine. Recommend DVT prophylaxis.
[2019-01-31] MEDS: ROCEPHIN/NS 2 GM/100 ML 2 GM/100 ML BAG IV SCH (20:17)
[2019-01-31] MEDS: ZESTRIL PO SCH (20:19)
[2019-01-31] MEDS: NORVASC PO SCH (20:19)
[2019-01-31] MEDS: ZITHROMAX 500 MG in NACL 0.9% 250ML 250 ML IV SCH (21:00)
[2019-01-31] MEDS ORDERED: BROVANA NEBU IH ONE (21:30)
[2019-01-31] MEDS ORDERED: PULMICORT IH ONE (21:30)
[2019-01-31] MEDS: PULMICORT IH SCH (21:31)
[2019-01-31] MEDS: BROVANA NEBU IH SCH (21:31)
[2019-01-31] MEDS: DUONEB *Not for PRN Use IH SCH (21:35)
[2019-01-31] MEDS: COREG PO SCH (22:07)
[2019-01-31] MEDS: APRESOLINE PO SCH (22:07)
[2019-01-31] MEDS ORDERED: XANAX ONE (22:11)
[2019-01-31] MEDS ORDERED: SOLU-Medrol ONE (22:11)
[2019-01-31] MEDS ORDERED: PEPCID IV ONE (22:12)
[2019-01-31] MEDS: PEPCID IV SCH (22:18)
[2019-01-31] MEDS: ALPRAZOLAM 0.25 MG PO SCH (22:18)
[2019-01-31] MEDS: SODIUM CHLORIDE FLUSH SYRINGE 10 ML IV SCH (22:18)
[2019-01-31] MEDS: SOLU-Medrol IV SCH (22:18)
[2019-01-31] MEDS: SINGULAIR PO SCH (22:48)
--- NOTE | 2019-02-01 03:13 | Event Note ---
Date: 01/31/19 See H/p in reports Acute resp failute with Hypercapnia COPD exacerbation
--- NOTE | 2019-02-01 04:27 | History and Physical Report ---
CHIEF COMPLAINT: Increasing shortness of breath for last 3 days. HISTORY OF PRESENT ILLNESS: A 63-year-old female with history of severe COPD on 3 liters oxygen at home, comes in for increasing shortness of breath and wheezing and slightly altered sensorium. The patient became lightheaded and fell down. The patient was held by a friend to get up. Severe shortness of breath and wheezing and cough. Cough productive of mucoid sputum. Nebulizer treatments were given at home with no relief. No exacerbating or relieving factors. No recent travel. PAST MEDICAL HISTORY: Significant for: 1. Hypertension. 2. Chronic obstructive pulmonary disease. 3. History of intubation. PAST SURGICAL HISTORY: None. SOCIAL HISTORY: Former smoker, stopped smoking a few years ago. FAMILY HISTORY: Hypertension. CURRENT MEDICATIONS: Coreg 6.25 b.i.d., lisinopril 5 mg once a day, Singulair 10 mg once a day, Ventolin HFA 2 puffs q.i.d. p.r.n., Brovana nebulizer 15 mcg q.12, Seroquel 50 mg p.o. at bedtime, amlodipine 10 mg p.o. daily, hydralazine 25 mg p.o. q.8, Xanax 0.25 b.i.d., prednisone 6-day pack. REVIEW OF SYSTEMS: Significant for increasing shortness of breath and cough productive of mucoid sputum, slightly altered sensorium, which she has recovered with a BiPAP machine in the Emergency Room. Otherwise, 14-point review of systems negative. PHYSICAL EXAMINATION: GENERAL: Young elderly female, cooperative during examination. VITAL SIGNS: Temperature is 98, pulse is 84, respirations 33, sats are 82% in spite of oxygen, improved to 95% on BiPAP, blood pressure 140/73. HEENT: Unremarkable. Pupils equal and reactive. NECK: Supple. Accessory muscles of respiration are prominent. No thyromegaly. LUNGS: Bilateral inspiratory and expiratory rhonchi present. Diminished air entry. HEART: S1, S2 heard. No gallop, no murmur, no rub. Apical impulse in left fifth intercostal space and midclavicular line. ABDOMEN: Soft and benign. No hepatosplenomegaly. No guarding, no rigidity. Hernial orifices are normal. EXTREMITIES: Good pedal pulses. No pedal edema. SKIN: Normal. LABORATORY DATA: White count is 12,700, H and H is 13.3 and 43.3, platelet count is 214,000. Blood gases ABG, pH of 7.38, pO2 of 50, pCO2 of 90, unofficially ____ pending. O2 sat of 80%. Bicarbonate is 48. Sodium is 146, potassium is 3.9, chloride is 89.9, otherwise electrolytes are normal. Urine negative. Urine ____ 15. Chest x-ray shows ____ ADDENDUM Chest x-ray was consistent with COPD and interstitial lung disease. ASSESSMENT AND PLAN: 1. Acute respiratory failure with hypercapnia, severe. The patient continues to be on nebulizer treatments, IV Solu-Medrol, and IV Rocephin and Zithromax. BiPAP if necessary. Intubation if necessary. 2. Chronic obstructive pulmonary disease exacerbation. The patient initiated on nebulizer treatment, IV Solu-Medrol max dosage of 125 q.8 and also IV antibiotics, Rocephin and ____. 3. Hypertension. Continue amlodipine 10 mg once a day. 4. Chronic obstructive pulmonary disease. Continue Brovana nebulizer and Pulmicort Respules as well continue Singulair for prevention. 5. Bipolar disorder. Continue Seroquel. 6. Generalized anxiety disorder. Continue Xanax 0.25 b.i.d. 7. Deep venous thrombosis prophylaxis, Lovenox 40 mg subcutaneous daily. JOB# [id number] JOB# [id number] VSM/NTS
[2019-02-01 05:17] LABS: Alanine Aminotransferase 8 units/L (7-56); Albumin 3.2 g/dL (3.9-5); BUN/Creatinine Ratio 43; Blood Urea Nitrogen 17 mg/dL (7-17); Calcium 9.5 mg/dL (8.4-10.2); Hemolysis Index 50
[2019-02-01 05:39] LABS: Hemoglobin 14.2 gm/dl (10.1-14.3); Mean Corpuscular HGB Conc 32 % (30-34); Mean Corpuscular Volume 104 fl (79-97); Platelet Count 212 K/mm3 (140-440); Red Blood Count 4.35 M/mm3 (3.65-5.03); Red Cell Distribution Width 14.2 % (13.2-15.2)
[2019-02-01] MEDS ORDERED: SOLU-Medrol ONE (06:13)
[2019-02-01] MEDS ORDERED: APRESOLINE ONE (06:13)
[2019-02-01] MEDS: APRESOLINE PO SCH ×3 (06:15→22:08)
[2019-02-01] MEDS: SOLU-Medrol IV SCH ×3 (06:15→22:09)
[2019-02-01] MEDS ORDERED: BROVANA NEBU IH ONE (07:41)
[2019-02-01] MEDS ORDERED: PULMICORT IH ONE (07:41)
[2019-02-01] MEDS: BROVANA NEBU IH SCH ×2 (07:44→20:21)
[2019-02-01] MEDS: PULMICORT IH SCH ×2 (07:44→20:21)
[2019-02-01 07:49] LABS: Anisocytosis Few; Basophils % (Manual) 0 % (0.0-1.8); Eosinophils % (Manual) 0 % (0.0-4.3); Monocytes % (Manual) 0 % (0.0-7.3); Stomatocytes Few; Total Cells Counted 100
[2019-02-01 07:50] LABS: Platelet Estimate Consistent w Auto
[2019-02-01] MEDS: DUONEB *Not for PRN Use IH SCH ×4 (08:05→20:20)
[2019-02-01] MEDS: ALPRAZOLAM 0.25 MG PO SCH (10:00)
[2019-02-01] MEDS: ROCEPHIN/NS 2 GM/100 ML 2 GM/100 ML BAG IV SCH (10:34)
[2019-02-01] MEDS ORDERED: PEPCID ONE (11:19)
[2019-02-01] MEDS ORDERED: COREG ONE (11:19)
[2019-02-01] MEDS ORDERED: NORVASC ONE (11:20)
[2019-02-01] MEDS ORDERED: ZESTRIL ONE (11:20)
[2019-02-01] MEDS ORDERED: LOVENOX SUB-Q ONE (11:21)
[2019-02-01] MEDS: LOVENOX SUB-Q SCH (11:29)
[2019-02-01] MEDS: PEPCID IV SCH ×2 (11:30→22:09)
[2019-02-01] MEDS: NORVASC PO SCH (11:30)
[2019-02-01] MEDS: COREG PO SCH ×2 (11:30→22:08)
[2019-02-01] MEDS: SODIUM CHLORIDE FLUSH SYRINGE 10 ML IV SCH ×2 (11:30→22:09)
[2019-02-01] MEDS: ZESTRIL PO SCH (11:30)
[2019-02-01] MEDS ORDERED: DUONEB *Not for PRN Use IH ONE (11:56)
[2019-02-01] MEDS: ZITHROMAX 500 MG in NACL 0.9% 250ML 250 ML IV SCH (13:19)
--- NOTE | 2019-02-01 13:45 | Progress Note ---
Assessment and Plan 63-year-old female, history of COPD on 3 L O2 chronically, presents with COPD exacerbation. Patient states she has been feeling weak, lightheaded over the last 3 days. Today, patient became lightheaded and fell down, she wished to get up she fell again. Patient states she was helped her friend, did not hit her head. Patient states later she began to have wheezing and shortness of breath, so EMS was called. Nebulizer treatment was given. Patient states she is feeling better at this time. Denies chest pain, fever Patient says she has history of Asthma. Patient has no history of smoking, alcohol or drug abuse. 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 Not . Children 1. Allergic to Peanut, shell fish and Ipatropium bromide. Patient is on BIPAP at this time. 18/10, rate 10, FIO2 35%. O2 saturation running 96%. Chest xray reported chronic interstitial changes. 02/01/19 Patient alert, awake. Resting on 3 litres O2. O2 saturation 93%. Patient says still has some shortness of breath. Patient to day telling me, she has history of smoking 1 pack for 25 years. Says stopped smoking 7 years ago. This could be acute exacerbation of COPD with acute on chronic hypercapnic respiratory failure - Patient Problems (1) COPD with exacerbation Current Visit: No Status: Acute Plan to address problem: O2 3 litres via nasal canula. BIPAP 18/10, rate 10, FIO2 35% to be stand by. Albuterol/atrovent aerosol treatments q 6 hours. Continue I/V solumedrol. Continue ceftrioxone and azythromycin. Continue famotidine. Continue Lovenox (2) Acute and chronic respiratory failure with hypercapnia Current Visit: Yes Status: Acute Plan to address problem: O2 3 litres via nasal canula. BIPAP 18/10, rate 10, FIO2 35% to be stand by. Albuterol/atrovent aerosol treatments q 6 hours. Continue I/V solumedrol. Continue ceftrioxone and azythromycin. Continue famotidine. Continue Lovenox. (3) GERD (gastroesophageal reflux disease) Current Visit: No Status: Acute Qualifiers: Esophagitis presence: without esophagitis Qualified Code(s): K21.9 - Gastro-esophageal reflux disease without esophagitis Plan to address problem: Patient is on Famotidine. (4) HTN (hypertension) Current Visit: No Status: Acute Qualifiers: Hypertension type: essential hypertension Qualified Code(s): I10 - Essential (primary) hypertension Plan to address problem: Management as per primary care. Subjective Date of service: 02/01/19 Interval history: Patient alert, awake. Resting on 3 litres O2. O2 saturation 93%. Patient says still has some shortness of breath. Patient to day telling me, she has history of smoking 1 pack for 25 years. Says stopped smoking 7 years ago. This could be acute exacerbation of COPD with acute on chronic hypercapnic respiratory fail ure. Objective Vital Signs - 12hr 02/01/19 02/01/19 02/01/19 01:45 02:00 02:15 Temperature Pulse Rate 84 85 90 Pulse Rate [ Anterior Bilateral Throughout] Respiratory 29 H 20 33 H Rate Respiratory Rate [Anterior Bilateral Throughout] Blood Pressure 140/73 149/73 149/73 O2 Sat by Pulse 96 96 95 Oximetry 02/01/19 02/01/19 02/01/19 02:31 02:45 03:00 Temperature Pulse Rate 98 H 101 H 99 H Pulse Rate [ Anterior Bilateral Throughout] Respiratory 16 30 H 30 H Rate Respiratory Rate [Anterior Bilateral Throughout] Blood Pressure 149/73 149/73 131/74 O2 Sat by Pulse 82 L 92 94 Oximetry 02/01/19 02/01/19 02/01/19 03:15 03:31 03:45 Temperature Pulse Rate 101 H 95 H 99 H Pulse Rate [ Anterior Bilateral Throughout] Respiratory 35 H 32 H 32 H Rate Respiratory Rate [Anterior Bilateral Throughout] Blood Pressure 131/74 131/74 131/74 O2 Sat by Pulse 94 94 94 Oximetry 02/01/19 02/01/19 02/01/19 04:00 04:15 04:31 Temperature Pulse Rate 96 H 101 H 90 Pulse Rate [ Anterior Bilateral Throughout] Respiratory 25 H 36 H 15 Rate Respiratory Rate [Anterior Bilateral Throughout] Blood Pressure 130/75 130/75 130/75 O2 Sat by Pulse 94 94 95 Oximetry 02/01/19 02/01/19 02/01/19 04:45 05:00 05:10 Temperature Pulse Rate 95 H 88 93 H Pulse Rate [ Anterior Bilateral Throughout] Respiratory 19 20 16 Rate Respiratory Rate [Anterior Bilateral Throughout] Blood Pressure 130/75 145/73 145/73 O2 Sat by Pulse 95 96 94 Oximetry 02/01/19 02/01/19 02/01/19 05:15 05:31 05:45 Temperature Pulse Rate 94 H 93 H 99 H Pulse Rate [ Anterior Bilateral Throughout] Respiratory 19 14 13 Rate Respiratory Rate [Anterior Bilateral Throughout] Blood Pressure 145/73 145/73 145/73 O2 Sat by Pulse 94 94 94 Oximetry 02/01/19 02/01/19 02/01/19 06:00 06:15 06:31 Temperature Pulse Rate 96 H 95 H 93 H Pulse Rate [ Anterior Bilateral Throughout] Respiratory 24 34 H 28 H Rate Respiratory Rate [Anterior Bilateral Throughout] Blood Pressure 142/78 142/78 142/78 O2 Sat by Pulse 95 94 94 Oximetry 02/01/19 02/01/19 02/01/19 06:46 07:00 07:46 Temperature Pulse Rate 96 H Pulse Rate [ 89 Anterior Bilateral Throughout] Respiratory 31 H Rate Respiratory 16 Rate [Anterior Bilateral Throughout] Blood Pressure 142/76 O2 Sat by Pulse 92 Oximetry 02/01/19 02/01/19 02/01/19 07:48 08:00 09:00 Temperature 98.7 F Pulse Rate 87 98 H Pulse Rate [ Anterior Bilateral Throughout] Respiratory 12 23 Rate Respiratory Rate [Anterior Bilateral Throughout] Blood Pressure 153/76 151/79 O2 Sat by Pulse 95 98 93 Oximetry 02/01/19 02/01/19 02/01/19 10:01 11:00 12:03 Temperature Pulse Rate 105 H 108 H Pulse Rate [ 111 H Anterior Bilateral Throughout] Respiratory 15 34 H Rate Respiratory 20 Rate [Anterior Bilateral Throughout] Blood Pressure 151/79 164/74 O2 Sat by Pulse 91 90 Oximetry Constitutional: no acute distress, alert Eyes: non-icteric ENT: oropharynx moist Neck: supple, no JVD Ascultation: Bilateral: diminished breath sounds, other (Prolonged expiratory phase.) Cardiovascular: regular rate and rhythm Gastrointestinal: normoactive bowel sounds, soft Integumentary: normal Extremities: no cyanosis, no edema Neurologic: normal mental status, non-focal exam, pupils equal and round, CN II- XII normal Psychiatric: mood appropriate CBC and BMP: 02/01/19 04:44 02/01/19 04:44 ABG, PT/INR, D-dimer: ABG POC ABG pH 7.460 (7.35-7.45) H 08/13/19 19:58 POC ABG pO2 69 (80-105) L 01/31/19 19:58 POC ABG HCO3 52.0 (22-26 mml/L) 01/31/19 19:58 POC ABG Total CO2 > 50 (23-27mmol/L) 01/31/19 19:58 POC ABG O2 Sat 93 01/31/19 19:58 PT/INR, D-dimer PT 11.7 Sec. (12.2-14.9) L 01/31/19 12:55 INR 0.88 (0.87-1.13) 01/31/19 12:55 Abnormal lab findings: Abnormal Labs 01/31/19 01/31/19 01/31/19 12:55 12:55 12:55 WBC 12.7 H Hct 43.3 H MCV 106 H MCH 33 H Lymph % (Auto) 9.0 L Lymph # 1.1 L Seg Neutrophils % 84.8 H Seg Neuts % (Manual) Lymphocytes % (Manual) Seg Neutrophils # 10.8 H Seg Neutrophils # Man Lymphocytes # (Manual) PT 11.7 L POC ABG pH POC ABG pO2 Sodium 146 H Chloride 89.9 L Carbon Dioxide 48 H* Creatinine 0.3 L Glucose Albumin Urine pH U Epithel Cells (Auto) 01/31/19 01/31/19 01/31/19 13:42 15:00 19:58 WBC Hct MCV MCH Lymph % (Auto) Lymph # Seg Neutrophils % Seg Neuts % (Manual) Lymphocytes % (Manual) Seg Neutrophils # Seg Neutrophils # Man Lymphocytes # (Manual) PT POC ABG pH 7.460 H POC ABG pO2 50 L 69 L Sodium Chloride Carbon Dioxide Creatinine Glucose Albumin Urine pH 9.0 H U Epithel Cells (Auto) 15.0 H 02/01/19 02/01/19 04:44 04:44 WBC 11.4 H Hct 45.0 H MCV 104 H MCH 33 H Lymph % (Auto) Lymph # Seg Neutrophils % Seg Neuts % (Manual) 97.0 H Lymphocytes % (Manual) 3.0 L Seg Neutrophils # Seg Neutrophils # Man 11.1 H Lymphocytes # (Manual) 0.3 L PT POC ABG pH POC ABG pO2 Sodium Chloride 91.5 L Carbon Dioxide 36 H D Creatinine 0.4 L Glucose 140 H Albumin 3.2 L Urine pH U Epithel Cells (Auto)
--- NOTE | 2019-02-01 17:00 | Progress Note ---
Assessment and Plan Assessment and plan: Acute on chronic hypoxic, hypercapnic respiratory failure COPD Exacerbation - patient is on IV Solu-Medrol, duo nebs, nebulizer treatment, oxygen support, antibiotics - Pulmonary consult appreciated Generalized anxiety disorder; continue Xanax Depression; and to use Seroquel DVT prophylaxis; Lovenox History Interval history: Patient was seen and evaluate the patient while in the ED. Patient said she is breathing better. Hospitalist Physical - Physical exam Narrative exam: Not in cardiopulmonary distress. The patient appeared well nourished and normally developed. Vital signs as documented. Head exam is unremarkable. No scleral icterus . Neck is without jugular venous distension, thyromegaly, or carotid bruits. Lungs scattered wheezing, decreased air entry in the lower lung zone Cardiac exam reveals regular rate and Rhythm. First and second heart sounds n ormal. No murmurs, rubs or gallops. Abdominal exam reveals normal bowel sounds, no masses, no organomegaly and no aortic enlargement. Extremities are nonedematous and both femoral and pedal pulses are normal. MAID SUPERVISOR: Alert and oriented 3. No focal weakness. - Constitutional Vitals: Temp Pulse Resp BP Pulse Ox 99.2 F 75 18 131/59 93 02/01/19 15:04 02/01/19 15:55 02/01/19 15:04 02/01/19 15:04 02/01/19 14:41 Results - Labs CBC & Chem 7: 02/01/19 04:44 02/01/19 04:44 Labs: Laboratory Last Values WBC 11.4 K/mm3 (4.5-11.0) H 02/01/19 04:44 RBC 4.35 M/mm3 (3.65-5.03) 02/01/19 04:44 Hgb 14.2 gm/dl (10.1-14.3) 02/01/19 04:44 Hct 45.0 % (30.3-42.9) H 02/01/19 04:44 MCV 104 fl (79-97) H 02/01/19 04:44 MCH 33 pg (28-32) H 02/01/19 04:44 MCHC 32 % (30-34) 02/01/19 04:44 RDW 14.2 % (13.2-15.2) 02/01/19 04:44 Plt Count 212 K/mm3 (140-440) 02/01/19 04:44 Lymph % (Auto) Pattern Cleaner 02/01/19 04:44 [place] % (Auto) Pattern Cleaner 02/01/19 04:44 Eos % (Auto) Pattern Cleaner 02/01/19 04:44 Baso % (Auto) Pattern Cleaner 02/01/19 04:44 Lymph # Pattern Cleaner 02/01/19 04:44 [place] # Pattern Cleaner 02/01/19 04:44 Eos # Pattern Cleaner 02/01/19 04:44 Baso # Pattern Cleaner 02/01/19 04:44 Add Manual Diff Complete 02/01/19 04:44 Total Counted 100 02/01/19 04:44 Seg Neutrophils % Pattern Cleaner 02/01/19 04:44 Seg Neuts % (Manual) 97.0 % (40.0-70.0) H 02/01/19 04:44 0 % 02/01/19 04:44 3.0 % (13.4-35.0) L 02/01/19 04:44 Reactive Lymphs % (Man) 0 % 02/01/19 04:44 0 % (0.0-7.3) 02/01/19 04:44 0 % (0.0-4.3) 02/01/19 04:44 0 % (0.0-1.8) 02/01/19 04:44 0 % 02/01/19 04:44 0 % 02/01/19 04:44 0 % 02/01/19 04:44 0 % 02/01/19 04:44 Nucleated RBC % Not Reportable 02/01/19 04:44 Seg Neutrophils # Pattern Cleaner 02/01/19 04:44 Seg Neutrophils # Man 11.1 K/mm3 (1.8-7.7) H 02/01/19 04:44 Band Neutrophils # 0.0 K/mm3 02/01/19 04:44 0.3 K/mm3 (1.2-5.4) L 02/01/19 04:44 Abs React Lymphs (Man) 0.0 K/mm3 02/01/19 04:44 0.0 K/mm3 (0.0-0.8) 02/01/19 04:44 0.0 K/mm3 (0.0-0.4) 02/01/19 04:44 0.0 K/mm3 (0.0-0.1) 02/01/19 04:44 0.0 K/mm3 02/01/19 04:44 0.0 K/mm3 02/01/19 04:44 0.0 K/mm3 02/01/19 04:44 Blast Cells # 0.0 K/mm3 02/01/19 04:44 WBC Morphology Not Reportable 02/01/19 04:44 Hypersegmented Neuts Not Reportable 02/01/19 04:44 Hyposegmented Neuts Not Reportable 02/01/19 04:44 Hypogranular Neuts Not Reportable 02/01/19 04:44 Not Reportable 02/01/19 04:44 Not Reportable 02/01/19 04:44 Not Reportable 02/01/19 04:44 Not Reportable 02/01/19 04:44 Not Reportable 02/01/19 04:44 Not Reportable 02/01/19 04:44 Consistent w auto 02/01/19 04:44 Not Reportable 02/01/19 04:44 Plt Clumps, EDTA Not Reportable 02/01/19 04:44 Not Reportable 02/01/19 04:44 Not Reportable 02/01/19 04:44 Not Reportable 02/01/19 04:44 Plt Morphology Comment Not Reportable 02/01/19 04:44 RBC Morphology Not Reportable 02/01/19 04:44 Dimorphic RBCs Not Reportable 02/01/19 04:44 Not Reportable 02/01/19 04:44 Not Reportable 02/01/19 04:44 Not Reportable 02/01/19 04:44 Few 02/01/19 04:44 Not Reportable 02/01/19 04:44 Not Reportable 02/01/19 04:44 Not Reportable 02/01/19 04:44 Not Reportable 02/01/19 04:44 Not Reportable 02/01/19 04:44 Not Reportable 02/01/19 04:44 Not Reportable 02/01/19 04:44 Not Reportable 02/01/19 04:44 Few 02/01/19 04:44 Not Reportable 02/01/19 04:44 Not Reportable 02/01/19 04:44 Not Reportable 02/01/19 04:44 Not Reportable 02/01/19 04:44 Not Reportable 02/01/19 04:44 Not Reportable 02/01/19 04:44 Not Reportable 02/01/19 04:44 Acanthocytes (Spur) Not Reportable 02/01/19 04:44 Rouleaux Not Reportable 02/01/19 04:44 Not Reportable 02/01/19 04:44 Not Reportable 02/01/19 04:44 Not Reportable 02/01/19 04:44 Not Reportable 02/01/19 04:44 Hem Pathologist Commnt No 02/01/19 04:44 PT 11.7 Sec. (12.2-14.9) L 01/31/19 12:55 INR 0.88 (0.87-1.13) 01/31/19 12:55 APTT 25.6 Sec. (24.2-36.6) 01/31/19 12:55 POC ABG pH 7.460 (7.35-7.45) H 01/31/19 19:58 POC ABG pCO2 > 70 (35-45) H 01/31/19 19:58 POC ABG pO2 69 (80-105) L 01/31/19 19:58 POC ABG HCO3 52.0 (22-26 mml/L) 01/31/19 19:58 POC ABG Total CO2 > 50 (23-27mmol/L) 01/31/19 19:58 POC ABG O2 Sat 93 01/31/19 19:58 POC ABG Base Excess 28 ((-2) - (+3)mmol/L) 01/31/19 19:58 35 % 01/31/19 19:58 Sodium 139 mmol/L (137-145) 02/01/19 04:44 Potassium 4.5 mmol/L (3.6-5.0) 02/01/19 04:44 Chloride 91.5 mmol/L (98-107) L 02/01/19 04:44 Carbon Dioxide 36 mmol/L (22-30) H D 02/01/19 04:44 16 mmol/L 02/01/19 04:44 BUN 17 mg/dL (7-17) 02/01/19 04:44 0.4 mg/dL (0.7-1.2) L 02/01/19 04:44 Estimated GFR > 60 ml/min 02/01/19 04:44 43 % 02/01/19 04:44 Glucose 140 mg/dL (65-100) H 02/01/19 04:44 5.7 % (4-6) 01/31/19 12:55 Calcium 9.5 mg/dL (8.4-10.2) 02/01/19 04:44 0.40 mg/dL (0.1-1.2) 02/01/19 04:44 AST 14 units/L (5-40) 02/01/19 04:44 ALT 8 units/L (7-56) 02/01/19 04:44 55 units/L (35-129) 02/01/19 04:44 < 0.010 ng/mL (0.00-0.029) 01/31/19 12:55 NT-Pro-B Natriuret Pep 47.75 pg/mL (0-900) 01/31/19 12:55 7.1 g/dL (6.3-8.2) 02/01/19 04:44 3.2 g/dL (3.9-5) L 02/01/19 04:44 0.8 % 02/01/19 04:44 Yellow (Yellow) 01/31/19 13:42 Hazy (Clear) 01/31/19 13:42 9.0 (5.0-7.0) H 01/31/19 13:42 Ur Specific [place] 1.013 (1.003-1.030) 01/31/19 13:42 30 mg/dl mg/dL (Negative) 01/31/19 13:42 Neg mg/dL (Negative) 01/31/19 13:42 Tr mg/dL (Negative) 01/31/19 13:42 Neg (Negative) 01/31/19 13:42 Neg (Negative) 01/31/19 13:42 Neg (Negative) 01/31/19 13:42 < 2.0 mg/dL (<2.0) 01/31/19 13:42 Ur Leukocyte Esterase Neg (Negative) 01/31/19 13:42 4.0 /HPF (0.0-6.0) 01/31/19 13:42 6.0 /HPF (0.0-6.0) 01/31/19 13:42 U Epithel Cells (Auto) 15.0 /HPF (0-13.0) H 01/31/19 13:42 Few /HPF 01/31/19 13:42 Active Medications - Current Medications Current Medications: Generic Name Dose Route Start Last Admin Trade Name Freq PRN Reason Stop Dose Admin Acetaminophen 650 mg 01/31/19 18:50 Tylenol PO Q4H PRN Pain MILD(1-3)/Fever >100.5/PÉREZ Albuterol 2.5 mg 01/31/19 18:53 Proventil IH Q4HRT PRN Shortness Of Breath Albuterol/Ipratropium 1 ampul 01/31/19 20:00 02/01/19 12:01 Duoneb *Not For Prn Use* IH 1 ampul QIDRT SEBASTIAN Administration Amlodipine Besylate 10 mg 01/31/19 19:00 02/01/19 11:30 Norvasc PO 10 mg QDAY SEBASTIAN Administration Arformoterol Tartrate 15 mcg 01/31/19 20:00 02/01/19 07:44 Brovana Nebu IH 15 mcg Q12HRT SEBASTIAN Administration Budesonide 0.5 mg 01/31/19 20:00 02/01/19 07:44 Pulmicort IH 0.5 mg Q12HRT SEBASTIAN Administration Carvedilol 6.25 mg 01/31/19 22:00 02/01/19 11:30 Coreg PO 6.25 mg BID SEBASTIAN Administration Enoxaparin Sodium 40 mg 02/01/19 10:00 02/01/19 11:29 Lovenox SUB-Q 40 mg QDAY SEBASTIAN Administration Famotidine 20 mg 01/31/19 22:00 02/01/19 11:30 Pepcid IV 20 mg BID SEBASTIAN Administration Hydralazine HCl 25 mg 01/31/19 22:00 02/01/19 15:55 Apresoline PO 25 mg Q8HR SEBASTIAN Administration Hydromorphone HCl 0.5 mg 01/31/19 18:50 Dilaudid IV Q3H PRN Pain , Severe (7-10) Sodium Chloride 1,000 mls @ 42 mls/hr 01/31/19 19:00 Nacl 0.9% 1000 Ml IV DIRECT SEBASTIAN Ceftriaxone Sodium 2 gm in 100 mls @ 200 mls/hr 01/31/19 19:00 02/01/19 10:34 Rocephin/Ns 2 Gm/100 Ml IV 200 mls/hr Q24HR SEBASTIAN Administration Protocol Azithromycin 500 mg/ Sodium 250 mls @ 250 mls/hr 02/01/19 21:00 Chloride IV 2100 [facility] Protocol Lisinopril 5 mg 01/31/19 19:00 02/01/19 11:30 Zestril PO 5 mg QDAY SEBASTIAN Administration Methylprednisolone Sodium Succinate 125 mg 01/31/19 22:00 02/01/19 15:55 Solu-Medrol IV 125 mg Q8HR SEBASTIAN Administration Metoclopramide HCl 10 mg 01/31/19 18:50 Reglan IV Q6H PRN Nausea And Vomiting Miscellaneous Medication 0.25 mg 01/31/19 22:00 02/01/19 10:00 Alprazolam PO Not Given BID SEBASTIAN Montelukast Sodium 10 mg 01/31/19 22:00 01/31/19 22:48 Singulair PO 10 mg QHS SEBASTIAN Administration Ondansetron HCl 4 mg 01/31/19 18:50 Zofran IV Q8H PRN Nausea And Vomiting Oxycodone/Acetaminophen 1 tab 01/31/19 18:50 Percocet 5/325 PO Q6H PRN Pain, Moderate (4-6) Quetiapine Fumarate 50 mg 01/31/19 22:00 01/31/19 22:18 Seroquel PO 50 mg QHS SEBASTIAN Administration Sodium Chloride 10 ml 01/31/19 22:00 02/01/19 11:30 Sodium Chloride Flush Syringe 10 Ml IV 10 ml BID SEBASTIAN Administration Sodium Chloride 10 ml 01/31/19 18:50 Sodium Chloride Flush Syringe 10 Ml IV PRN PRN LINE FLUSH
[2019-02-01] MEDS ORDERED: ZITHROMAX 500 MG in NACL 0.9% 250ML 250 ML IV SCH (21:00)
[2019-02-01] MEDS: SINGULAIR PO SCH (22:08)
[2019-02-01] MEDS: XANAX PO SCH (22:08)
[2019-02-02] MEDS: SOLU-Medrol IV SCH (05:24)
[2019-02-02] MEDS: APRESOLINE PO SCH (05:24)
[2019-02-02 05:30] LABS: Hematocrit 40.9 % (30.3-42.9); Hemoglobin 13.3 gm/dl (10.1-14.3); Mean Corpuscular HGB Conc 33 % (30-34); Mean Corpuscular Volume 102 fl (79-97); Red Blood Count 4.03 M/mm3 (3.65-5.03)
[2019-02-02 05:31] LABS: Platelet Count 217 K/mm3 (140-440)
[2019-02-02 05:54] LABS: BUN/Creatinine Ratio 48; Blood Urea Nitrogen 19 mg/dL (7-17); Hemolysis Index 6
[2019-02-02 08:09] LABS: Basophils % (Manual) 0 % (0.0-1.8); Eosinophils % (Manual) 0 % (0.0-4.3); Platelet Estimate Consistent w Auto; RBC Morphology Normal; Total Cells Counted 100
[2019-02-02] MEDS: DUONEB *Not for PRN Use IH SCH ×3 (08:53→17:38)
[2019-02-02] MEDS: PULMICORT IH SCH (08:53)
[2019-02-02] MEDS: BROVANA NEBU IH SCH (08:53)
--- NOTE | 2019-02-02 09:33 | Progress Note ---
Assessment and Plan (1) COPD with exacerbation Current Visit: No Status: Acute Plan to address problem: O2 3 litres via nasal canula. BIPAP 18/10, rate 10, FIO2 35% prn Albuterol/atrovent aerosol treatments q 6 hours. Steroid taper Continue ceftriaxone and azithromycin. Continue famotidine. Continue Lovenox (2) Acute and chronic respiratory failure with hypercapnia Current Visit: Yes Status: Acute Plan to address problem: O2 3 litres via nasal canula. BIPAP 18/10, rate 10, FIO2 35% to be stand by. Albuterol/atrovent aerosol treatments q 6 hours. Steroid taper, switch to oral prednisons Continue ceftrioxone and azythromycin. Continue famotidine. Continue Lovenox. (3) GERD (gastroesophageal reflux disease) Current Visit: No Status: Acute Qualifiers: Esophagitis presence: without esophagitis Qualified Code(s): K21.9 - Gastro-esophageal reflux disease without esophagitis Plan to address problem: Patient is on Famotidine. (4) HTN (hypertension) Current Visit: No Status: Acute Qualifiers: Hypertension type: essential hypertension Qualified Code(s): I10 - Essential (primary) hypertension Plan to address problem: Management as per primary care. Patient on further questioning, sees Dr. Quintana in the outpatient. Notified Dr. Mancilla, will sign off Subjective Date of service: 02/02/19 Interval history: Patient is seen today for: AE-COPD, acute on chronic hypoxic respiraotry faillure Seen and examined at bedside; 24hour events reviewed; nursing and respiratory care staff consulted; no adverse overnight events reported to me; No fevers or chills. Lying peacefully in bed, no chest pain, no shortness of breath, no fevers or chills. Feels better Objective Vital Signs - 12hr 02/01/19 02/02/19 02/02/19 22:57 00:00 03:05 Temperature 98.9 F 98.1 F Pulse Rate 99 H 106 H 80 Pulse Rate [ Anterior Bilateral Throughout] Respiratory 18 18 Rate Respiratory Rate [Anterior Bilateral Throughout] Blood Pressure 121/62 137/80 O2 Sat by Pulse 90 94 Oximetry 02/02/19 02/02/19 08:00 08:56 Temperature Pulse Rate Pulse Rate [ 100 H Anterior Bilateral Throughout] Respiratory Rate Respiratory 18 Rate [Anterior Bilateral Throughout] Blood Pressure O2 Sat by Pulse 89 Oximetry Constitutional: no acute distress, alert Eyes: non-icteric ENT: oropharynx moist Neck: supple, no JVD Ascultation: Bilateral: diminished breath sounds, other (Prolonged expiratory ph ase.) Cardiovascular: regular rate and rhythm Gastrointestinal: normoactive bowel sounds, soft Integumentary: normal Extremities: no cyanosis, no edema Neurologic: normal mental status, non-focal exam, pupils equal and round, CN II- XII normal Psychiatric: mood appropriate CBC and BMP: 02/02/19 04:42 02/02/19 04:42 ABG, PT/INR, D-dimer: ABG POC ABG pH 7.460 (7.35-7.45) H 01/31/19 19:58 POC ABG pCO2 > 70 (35-45) H 01/31/19 19:58 POC ABG pO2 69 (80-105) L 01/31/19 19:58 POC ABG HCO3 52.0 (22-26 mml/L) 01/31/19 19:58 POC ABG Total CO2 > 50 (23-27mmol/L) 01/31/19 19:58 POC ABG O2 Sat 93 01/31/19 19:58 PT/INR, D-dimer PT 11.7 Sec. (12.2-14.9) L 01/31/19 12:55 INR 0.88 (0.87-1.13) 01/31/19 12:55 Abnormal lab findings: Abnormal Labs 01/31/19 01/31/19 01/31/19 12:55 12:55 12:55 WBC 12.7 H Hct 43.3 H MCV 106 H MCH 33 H Lymph % (Auto) 9.0 L Lymph # 1.1 L Seg Neutrophils % 84.8 H Seg Neuts % (Manual) Lymphocytes % (Manual) Seg Neutrophils # 10.8 H Seg Neutrophils # Man Lymphocytes # (Manual) PT 11.7 L POC ABG pH POC ABG pCO2 POC ABG pO2 Sodium 146 H Chloride 89.9 L Carbon Dioxide 48 H* BUN Creatinine 0.3 L Glucose Albumin Urine pH U Epithel Cells (Auto) 01/31/19 01/31/19 01/31/19 13:42 15:00 19:58 WBC Hct MCV MCH Lymph % (Auto) Lymph # Seg Neutrophils % Seg Neuts % (Manual) Lymphocytes % (Manual) Seg Neutrophils # Seg Neutrophils # Man Lymphocytes # (Manual) PT POC ABG pH 7.460 H POC ABG pCO2 > 70 H POC ABG pO2 50 L 69 L Sodium Chloride Carbon Dioxide BUN Creatinine Glucose Albumin Urine pH 9.0 H U Epithel Cells (Auto) 15.0 H 02/01/19 02/01/19 02/02/19 04:44 04:44 04:42 WBC 11.4 H 21.1 H Hct 45.0 H MCV 104 H 102 H MCH 33 H 33 H Lymph % (Auto) Lymph # Seg Neutrophils % Seg Neuts % (Manual) 97.0 H 95.0 H Lymphocytes % (Manual) 3.0 L 2.0 L Seg Neutrophils # Seg Neutrophils # Man 11.1 H 20.0 H Lymphocytes # (Manual) 0.3 L 0.4 L PT POC ABG pH POC ABG pCO2 POC ABG pO2 Sodium Chloride 91.5 L Carbon Dioxide 36 H D BUN Creatinine 0.4 L Glucose 140 H Albumin 3.2 L Urine pH U Epithel Cells (Auto) 02/02/19 04:42 WBC Hct MCV MCH Lymph % (Auto) Lymph # Seg Neutrophils % Seg Neuts % (Manual) Lymphocytes % (Manual) Seg Neutrophils # Seg Neutrophils # Man Lymphocytes # (Manual) PT POC ABG pH POC ABG pCO2 POC ABG pO2 Sodium Chloride 93.5 L Carbon Dioxide 43 H* D BUN 19 H Creatinine 0.4 L Glucose 154 H Albumin Urine pH U Epithel Cells (Auto) Chest x-ray: image reviewed
--- NOTE | 2019-02-02 10:16 | Discharge Summary ---
Providers - Providers Date of Admission: 01/31/19 16:22 Attending physician: VETO CAVAZOS MD 01/31/19 18:50 Consult to Physician [CONS] Routine Comment: Consulting Provider: DIEGO SHABAZZ Physician Instructions: Reason For Exam: acute respiratory failure Primary care physician: HOWARD SEWELL Hospitalization Reason for admission: COPD exacerbation Condition: Stable Hospital course: Patient admitted for the management of acute on chronic respiratory failure 2/2 COPD exacerbation and was treated appropriately and showed and impoved and discharged home. Patient has home O2. patient was admitted for the same problems multiple times before. Disposition: [id number] TO HOME OR SELFCARE Time spent for discharge: 32 minutes - Discharge Diagnoses (1) Acute and chronic respiratory failure with hypercapnia Status: Acute (2) Acute and chronic respiratory failure with hypoxia Status: Acute (3) COPD exacerbation Status: Acute Core Measure Documentation - Palliative Care Palliative Care/ Comfort Measures: Not Applicable - Core Measures Any of the following diagnoses?: none Exam - Physical Exam Narrative exam: Not in cardiopulmonary distress. The patient appeared well nourished and normally developed. Vital signs as documented. Head exam is unremarkable. No scleral icterus . Neck is without jugular venous distension, thyromegaly, or carotid bruits. Lungs scattered wheezing, decreased air entry in the lower lung zone Cardiac exam reveals regular rate and Rhythm. First and second heart sounds normal. No murmurs, rubs or gallops. Abdominal exam reveals normal bowel sounds, no masses, no organomegaly and no aortic enlargement. Extremities are nonedematous and both femoral and pedal pulses are normal. WORSHIP LEADER: Alert and oriented 3. No focal weakness. - Constitutional Vitals: Temp Pulse Resp BP Pulse Ox 98.0 F 100 H 18 146/76 89 02/02/19 07:20 02/02/19 08:00 02/02/19 08:00 02/02/19 07:20 02/02/19 08:56 Plan Activity: no restrictions Weight Bearing Status: Full Weight Bearing Diet: low fat Follow up with: HOWARD SEWELL MD [Primary Care Provider] - 3-5 Days Prescriptions: Arformoterol Nebu [Brovana Nebu] 15 mcg IH Q12HRT #30 ml levoFLOXacin [Levaquin TAB] 500 mg PO QDAY #7 tablet Prednisone [predniSONE 10 mg (6-Day Pack, 21 Tabs)] 10 mg PO .TAPER #1 tab.ds.pk Budesonide [Pulmicort Respules] 0.5 mg IH Q12HRT #30 nebu
[2019-02-02] MEDS: LOVENOX SUB-Q SCH (11:21)
[2019-02-02] MEDS: XANAX PO SCH (11:22)
[2019-02-02] MEDS: PEPCID IV SCH (11:22)
[2019-02-02] MEDS: NORVASC PO SCH (11:22)
[2019-02-02] MEDS: ZESTRIL PO SCH (11:23)
[2019-02-02] MEDS: ROCEPHIN/NS 2 GM/100 ML 2 GM/100 ML BAG IV SCH (11:24)
[2019-02-02] MEDS: COREG PO SCH (11:25)
[2019-02-02] MEDS: SODIUM CHLORIDE FLUSH SYRINGE 10 ML IV SCH (11:26)
[2019-02-02 19:50] VITALS: BP 107/82
== END 2019-02-02 16:45 | disposition home or self-care (01) | DRG 189 ==
LOC: ED 11:36 → 4A 16:22 → IMCU 19:03 → 4A 02-01 13:50
PROVIDERS: ADMIT Internal Medicine; ATTEND Internal Medicine
PROC: 4A033R1 Measurement of Arterial Saturation, Peripheral, Percutaneous Approach (ICD-10-PCS; principal; 2019-01-31)
PROC: 5A09357 Assistance with Respiratory Ventilation, Less than 24 Consecutive Hours, Continuous Positive Airway Pressure (ICD-10-PCS; 2019-01-31)
PROC: 5A09357 Assistance with Respiratory Ventilation, Less than 24 Consecutive Hours, Continuous Positive Airway Pressure (ICD-10-PCS; 2019-02-01)
DX: J96.22 Acute and chronic respiratory failure with hypercapnia (principal); J44.1 Chronic obstructive pulmonary disease with (acute) exacerbation; J45.51 Severe persistent asthma with (acute) exacerbation; K21.9 Gastro-esophageal reflux disease without esophagitis; I10 Essential (primary) hypertension; J96.21 Acute and chronic respiratory failure with hypoxia; F41.1 Generalized anxiety disorder; F31.9 Bipolar disorder, unspecified; Z99.81 Dependence on supplemental oxygen; Z91.010 Allergy to peanuts; Z91.013 Allergy to seafood; Z87.891 Personal history of nicotine dependence; Z79.899 Other long term (current) drug therapy; Z82.49 Family history of ischemic heart disease and other diseases of the circulatory system
CPT/HCPCS: 36415; 36600; 71045; 72100; 80048; 80053; 81001; 82803; 83036; 83880; 84484; 85007; 85025; 85610; 85730; 93005; 93010; 94640; 94644; 94660; 94760; G0378; J0456; J0696; J1650; J2930; J3246; J7050

== ENCOUNTER 2019-02-12 16:28 | Inpatient (IN) | payer MEDICARE ==
[2019-02-12] MEDS ORDERED: PROVENTIL IH ONE ×2 (16:42→17:25)
[2019-02-12] MEDS ORDERED: ATROVENT IH ONE (16:42)
[2019-02-12 17:07] LABS: Basophils % (Auto) 0.3 % (0.0-1.8); Eosinophils % (Auto) 0.3 % (0.0-4.3); Hematocrit 43.8 % (30.3-42.9); Hemoglobin 13.8 gm/dl (10.1-14.3); Lymphocytes # (Auto) 1.8 K/mm3 (1.2-5.4); Mean Corpuscular HGB Conc 32 % (30-34); Mean Corpuscular Volume 104 fl (79-97); Monocytes # (Auto) 0.7 K/mm3 (0.0-0.8); Monocytes % (Auto) 5.8 % (0.0-7.3); Platelet Count 287 K/mm3 (140-440); Red Cell Distribution Width 13.8 % (13.2-15.2)
--- NOTE | 2019-02-12 17:17 | Emergency Department Report ---
ED Shortness of Breath HPI - General Chief Complaint: Dyspnea/Respdistress Stated Complaint: ANTHONY Time Seen by Provider: 02/12/19 16:36 Source: patient, EMS Mode of arrival: Stretcher Limitations: No Limitations - History of Present Illness Initial Comments: 63-year-old female with a past medical history of COPD and hypertension presents to the hospital complaining of wheezing and shortness breath. Patient recently discharged from the hospital on 02/02/2019 after admission for COPD exacerbation. Patient was discharged on prednisone for 3 days, Levaquin for 7 days, as well as other medications. Patient states she took the medication as prescribed. Patient uses 3 L of oxygen at home as needed. She received magnesium 2 g, Solu-Medrol 125 mg, and albuterol 5 mg around with improvement. Room air saturation 88-89% upon arrival. She complains of a dry cough, no fever, no pain reported - Related Data Home Medications Medication Instructions Recorded Confirmed Last Taken ALPRAZolam 0.25 mg PO BID 12/03/18 01/31/19 01/29/19 Previous Rx's Medication Instructions Recorded Last Taken Type Carvedilol [Coreg] 6.25 mg PO BID #60 tablet 11/30/17 01/29/19 Rx Lisinopril [Zestril TAB] 5 mg PO QDAY #30 tablet 11/30/17 01/29/19 Rx Montelukast [Singulair] 10 mg PO QHS #30 tablet 02/20/18 01/29/19 Rx Albuterol Sulfate [Ventolin HFA] 2 puff IH Q4H PRN #1 hfa.aer.ad 07/26/18 01/30/19 Rx QUEtiapine [SEROquel] 50 mg PO QHS #30 tablet 07/26/18 01/29/19 Rx amLODIPine [Norvasc] 10 mg PO QDAY #30 tablet 07/26/18 01/29/19 Rx hydrALAZINE [Apresoline TAB] 25 mg PO Q8HR #90 tablet 07/26/18 01/29/19 Rx Arformoterol Nebu [Brovana Nebu] 15 mcg IH Q12HRT #30 ml 02/02/19 Unknown Rx Budesonide [Pulmicort Respules] 0.5 mg IH Q12HRT #30 nebu 02/02/19 Unknown Rx Prednisone [predniSONE 10 mg 10 mg PO .TAPER #1 tab.ds.pk 02/02/19 Unknown Rx (6-Day Pack, 21 Tabs)] levoFLOXacin [Levaquin TAB] 500 mg PO QDAY #7 tablet 02/02/19 Unknown Rx Allergies Allergy/AdvReac Type Severity Reaction Status Date / Time peanut Allergy Angioedema Verified 12/03/18 04:44 ipratropium bromide AdvReac Shortness Verified 12/03/18 04:44 [From Atrovent] of Breath Shellfish Allergy Unknown Uncoded 01/15/18 14:25 ED Review of Systems ROS: Stated complaint: ANTHONY Other details as noted in HPI Comment: All other systems reviewed and negative ED Past Medical Hx - Past Medical History Previous Medical History?: Yes Hx Hypertension: Yes Hx CVA: No Hx Heart Attack/AMI: No Hx Congestive Heart Failure: No Hx Diabetes: No Hx Deep Vein Thrombosis: No Hx Pulmonary Embolism: No Hx GERD: No Hx Liver Disease: No Hx Renal Disease: No Hx Sickle Cell Disease: No Hx Arthritis: No Hx Headaches / Migraines: No Hx Seizures: No Hx Kidney Stones: No Hx Psychiatric Treatment: No Hx Asthma: Yes Hx COPD: Yes Hx Tuberculosis: No Hx Dementia: No Hx HIV: No Additional medical history: hx intubation - Surgical History Hx Coronary Stent: No Hx Open Heart Surgery: No Hx Pacemaker: No Hx Internal Defibrillator: No Hx Cholecystectomy: No Hx Appendectomy: No Hx Breast Surgery: No - Social History Smoking Status: Former Smoker Substance Use Type: None - Medications Home Medications: Home Medications Medication Instructions Recorded Confirmed Last Taken Type Carvedilol [Coreg] 6.25 mg PO BID #60 tablet 11/30/17 01/31/19 01/29/19 Rx Lisinopril [Zestril TAB] 5 mg PO QDAY #30 tablet 11/30/17 01/31/19 01/29/19 Rx Montelukast [Singulair] 10 mg PO QHS #30 tablet 02/20/18 01/31/19 01/29/19 Rx Albuterol Sulfate [Ventolin HFA] 2 puff IH Q4H PRN #1 hfa.aer.ad 07/26/18 01/31/19 01/30/19 Rx QUEtiapine [SEROquel] 50 mg PO QHS #30 tablet 07/26/18 01/31/19 01/29/19 Rx amLODIPine [Norvasc] 10 mg PO QDAY #30 tablet 07/26/18 01/31/19 01/29/19 Rx hydrALAZINE [Apresoline TAB] 25 mg PO Q8HR #90 tablet 07/26/18 01/31/19 01/29/19 Rx ALPRAZolam 0.25 mg PO BID 12/03/18 01/31/19 01/29/19 History Arformoterol Nebu [Brovana Nebu] 15 mcg IH Q12HRT #30 ml 02/02/19 Unknown Rx Budesonide [Pulmicort Respules] 0.5 mg IH Q12HRT #30 nebu 02/02/19 Unknown Rx Prednisone [predniSONE 10 mg 10 mg PO .TAPER #1 tab.ds.pk 02/02/19 Unknown Rx (6-Day Pack, 21 Tabs)] levoFLOXacin [Levaquin TAB] 500 mg PO QDAY #7 tablet 02/02/19 Unknown Rx ED Physical Exam - General Limitations: No Limitations - Other Other exam information: General: No acute distress Head: Atraumatic Eyes: Normal appearance, Pupils equal and reactive to light, extraocular movements intact ENT: Normal oropharynx Neck: Normal appearance, no posterior or midline tenderness, no meningismus Chest: mild tachypnea or accessory muscle use, b/l wheezing CV: Regular rate and rhythm Abdomen: soft, nontender, nondistended, no rebound or guarding Back: Nontender Extremity: Normal inspection, full range of motion, nontender Neuro: drowsy, slow to respond to questions, generalized weakness without focal weakness. sensation intact Oriented 3, speech clear Skin: No rash, redness, warmth ED Course Vital Signs 02/12/19 02/12/19 02/12/19 16:50 17:41 17:44 Temperature 98.0 F Pulse Rate 87 91 H Pulse Rate [ 91 H Anterior Bilateral Throughout] Respiratory 23 30 H Rate Respiratory 18 Rate [Anterior Bilateral Throughout] Blood Pressure 125/58 Blood Pressure [Left] O2 Sat by Pulse 95 92 Oximetry 02/12/19 02/12/19 02/12/19 17:48 18:00 18:05 Temperature Pulse Rate 99 H 84 86 Pulse Rate [ Anterior Bilateral Throughout] Respiratory 30 H 30 H Rate Respiratory Rate [Anterior Bilateral Throughout] Blood Pressure Blood Pressure 74/41 106/81 110/53 [Left] O2 Sat by Pulse 94 93 Oximetry - ABG Interpretation Ph: 7.25 PCO2: 120 PO2: 83 Bicarbonate: 53 Interpretation: respiratory acidosis Additional Comments: On 32% FiO2 ED Medical Decision Making - Lab Data Result diagrams: 02/12/19 16:50 02/12/19 16:50 Lab Results 02/12/19 02/12/19 02/12/19 Range/Units 16:50 16:50 17:18 WBC 11.3 H (4.5-11.0) K/mm3 RBC 4.20 (3.65-5.03) M/mm3 Hgb 13.8 (10.1-14.3) gm/dl Hct 43.8 H (30.3-42.9) % MCV 104 H (79-97) fl MCH 33 H (28-32) pg MCHC 32 (30-34) % RDW 13.8 (13.2-15.2) % Plt Count 287 (140-440) K/mm3 Lymph % (Auto) 16.0 (13.4-35.0) % [place] % (Auto) 5.8 (0.0-7.3) % Eos % (Auto) 0.3 (0.0-4.3) % Baso % (Auto) 0.3 (0.0-1.8) % Lymph # 1.8 (1.2-5.4) K/mm3 [place] # 0.7 (0.0-0.8) K/mm3 Eos # 0.0 (0.0-0.4) K/mm3 Baso # 0.0 (0.0-0.1) K/mm3 Seg Neutrophils % 77.6 H (40.0-70.0) % Seg Neutrophils # 8.8 H (1.8-7.7) K/mm3 POC ABG pH 7.259 L (7.35-7.45) POC ABG pO2 83 (80-105) POC ABG HCO3 53.7 (22-26 mml/L) POC ABG Total CO2 > 50 (23-27mmol/L) POC ABG O2 Sat 92 POC ABG Base Excess 27 ((-2) - (+3)mmol/L) FiO2 32 % Sodium 144 (137-145) mmol/L Potassium 3.9 (3.6-5.0) mmol/L Chloride 92.2 L (98-107) mmol/L Carbon Dioxide 46 H* (22-30) mmol/L Anion Gap 10 mmol/L BUN 9 (7-17) mg/dL Creatinine 0.4 L (0.7-1.2) mg/dL Estimated GFR > 60 ml/min BUN/Creatinine Ratio 23 % Glucose 114 H (65-100) mg/dL Calcium 9.3 (8.4-10.2) mg/dL - Radiology Data Radiology results: report reviewed CHEST 1 VIEW INDICATION / CLINICAL INFORMATION: sob, cough, wheeze. COMPARISON: 01/31/2019, 12/01/2017 FINDINGS: SUPPORT DEVICES: None. HEART / MEDIASTINUM: No significant abnormality. LUNGS / PLEURA: Chronic interstitial disease is again noted not appreciably changed. The lungs are otherwise grossly clear. No pneumothorax. ADDITIONAL FINDINGS: No significant additional findings. IMPRESSION: 1. Chronic interstitial lung disease appears grossly stable. No superimposed pulmonary disease noted. - Medical Decision Making pt is a chronic co2 retainer pt to be admitted with co2 retention with respiratory acidosis BiPAP initiated in the ED No infiltrate on chest x-ray Patient to be admitted to the hospital for further treatment - Differential Diagnosis pneumonia, COPD, respiratory acidosis Critical Care Time: No Critical care attestation.: If time is entered above; I have spent that time in minutes in the direct care of this critically ill patient, excluding procedure time. ED Disposition Clinical Impression: COPD with exacerbation, CO2 retention, O2 dependent Disposition: 09 OP ADMIT IP TO THIS HOSP Is pt being admited?: Yes Condition: Stable Time of Disposition: 17:42 (Dr Dang/hosp)
--- NOTE | 2019-02-12 17:18 | XRay Report ---
CHEST 1 VIEW INDICATION / CLINICAL INFORMATION: sob, cough, wheeze. COMPARISON: 01/31/2019, 12/01/2017 FINDINGS: SUPPORT DEVICES: None. HEART / MEDIASTINUM: No significant abnormality. LUNGS / PLEURA: Chronic interstitial disease is again noted not appreciably changed. The lungs are ot herwise grossly clear. No pneumothorax. ADDITIONAL FINDINGS: No significant additional findings. IMPRESSION: 1. Chronic interstitial lung disease appears grossly stable. No superimposed pulmonary disease noted. Signer Name: Krystal Hernández MD Signed: 02/12/2019 5:14 PM Workstation Name: [id number]
[2019-02-12] MEDS ORDERED: DILAUDID IV ONE (17:24)
[2019-02-12] MEDS ORDERED: ZOFRAN IV ONE (17:24)
[2019-02-12 17:26] LABS: BUN/Creatinine Ratio 23; Blood Urea Nitrogen 9 mg/dL (7-17); Calcium 9.3 mg/dL (8.4-10.2); Hemolysis Index 7
[2019-02-12] MEDS ORDERED: NACL 0.9% 1000 ML 1,000 ML IV ONE (17:49)
[2019-02-12] MEDS ORDERED: SODIUM CHLORIDE FLUSH SYRINGE 10 ML IV PRN (20:53)
[2019-02-12] MEDS ORDERED: TYLENOL PO PRN (20:53)
[2019-02-12] MEDS ORDERED: DILAUDID IV PRN (20:53)
[2019-02-12] MEDS ORDERED: ZOFRAN IV PRN (20:53)
[2019-02-12] MEDS ORDERED: REGLAN IV PRN (20:53)
[2019-02-12] MEDS ORDERED: PROVENTIL IH PRN (20:56)
[2019-02-12] MEDS: PULMICORT IH SCH (21:09)
[2019-02-12] MEDS: BROVANA NEBU IH SCH (21:09)
[2019-02-12] MEDS: ZESTRIL PO SCH (21:42)
[2019-02-12] MEDS: NORVASC PO SCH (21:42)
[2019-02-12] MEDS: SOLU-Medrol IV SCH (22:53)
[2019-02-12] MEDS: LOVENOX SUB-Q SCH (22:54)
[2019-02-12] MEDS: SINGULAIR PO SCH (22:54)
[2019-02-12] MEDS: COREG PO SCH (22:54)
[2019-02-12] MEDS: PEPCID PO SCH (22:54)
[2019-02-12] MEDS: APRESOLINE PO SCH (22:54)
[2019-02-12] MEDS: SODIUM CHLORIDE FLUSH SYRINGE 10 ML IV SCH (22:55)
[2019-02-12] MEDS: XANAX PO SCH (22:55)
[2019-02-12] MEDS: LEVAQUIN 750MG/150ML 750 MG/150 ML BAG IV SCH (22:55)
[2019-02-13] MEDS: PERCOCET 5/325 PO PRN ×2 (00:24→13:31)
--- NOTE | 2019-02-13 01:13 | Event Note ---
Asked by can't fully ABG on this patien csrbon dioxide on admission was 120 ABG reviewed, CO2 down to 80 patient improving
[2019-02-13 05:32] LABS: Hematocrit 36.9 % (30.3-42.9); Hemoglobin 11.8 gm/dl (10.1-14.3); Mean Corpuscular HGB Conc 32 % (30-34); Mean Corpuscular Volume 103 fl (79-97); Platelet Count 251 K/mm3 (140-440); Red Blood Count 3.58 M/mm3 (3.65-5.03); Red Cell Distribution Width 13.8 % (13.2-15.2)
[2019-02-13 05:54] LABS: Alanine Aminotransferase 10 units/L (7-56); Albumin 3.3 g/dL (3.9-5); BUN/Creatinine Ratio 40; Blood Urea Nitrogen 16 mg/dL (7-17); Calcium 8.9 mg/dL (8.4-10.2); Hemolysis Index 5
[2019-02-13 06:21] LABS: Basophils % (Manual) 0 % (0.0-1.8); Eosinophils % (Manual) 0 % (0.0-4.3); Macrocytosis 1+; Total Cells Counted 100
[2019-02-13 06:23] LABS: Platelet Estimate Consistent w Auto; Stomatocytes 1+
[2019-02-13] MEDS: SOLU-Medrol IV SCH ×3 (06:41→22:43)
[2019-02-13] MEDS: APRESOLINE PO SCH ×3 (06:41→22:45)
--- NOTE | 2019-02-13 07:21 | History and Physical Report ---
History of Present Illness Date of examination: 02/12/19 Date of admission: 02/12/19 17:46 Chief complaint: Severe SOB 2 days History of present illness: 63-year-old female with a past medical history of COPD and hypertension presents to the hospital complaining of wheezing and shortness breath. Patient recently discharged from the hospital on 02/02/2019 after admission for COPD exacerbation. Patient was discharged on prednisone for 3 days, Levaquin for 7 days, as well as other medications. Patient states she took the medication as prescribed. Patient uses 3 L of oxygen at home as needed. She received magnesium 2 g, Solu-Medrol 125 mg, and albuterol 5 mg around with improvement. Room air saturation 88-89% upon arrival. She complains of a dry cough, no fever, no pain reported - Past Medical History Previous Medical History?: Yes Hypertension: Yes Asthma: Yes COPD: Yes Additional medical history: hx intubation Surgical History None Social History Smoking Status: Former Smoker Substance Use Type: None Family History Htn - Medications Home Medications: Home Medications Medication Instructions Recorded Confirmed Last Taken Type Carvedilol [Coreg] 6.25 mg PO BID #60 tablet 11/30/17 01/31/19 01/29/19 Rx Lisinopril [Zestril TAB] 5 mg PO QDAY #30 tablet 11/30/17 01/31/19 01/29/19 Rx Montelukast [Singulair] 10 mg PO QHS #30 tablet 02/20/18 01/31/19 01/29/19 Rx Albuterol Sulfate [Ventolin HFA] 2 puff IH Q4H PRN #1 hfa.aer.ad 07/26/18 01/31/19 01/30/19 Rx QUEtiapine [SEROquel] 50 mg PO QHS #30 tablet 07/26/18 01/31/19 01/29/19 Rx amLODIPine [Norvasc] 10 mg PO QDAY #30 tablet 07/26/18 01/31/19 01/29/19 Rx hydrALAZINE [Apresoline TAB] 25 mg PO Q8HR #90 tablet 07/26/18 01/31/19 01/29/19 Rx ALPRAZolam 0.25 mg PO BID 12/03/18 01/31/19 01/29/19 History Arformoterol Nebu [Brovana Nebu] 15 mcg IH Q12HRT #30 ml 02/02/19 Unknown Rx Budesonide [Pulmicort Respules] 0.5 mg IH Q12HRT #30 nebu 02/02/19 Unknown Rx Prednisone [predniSONE 10 mg 10 mg PO .TAPER #1 tab.ds.pk 02/02/19 Unknown Rx (6-Day Pack, 21 Tabs)] levoFLOXacin [Levaquin TAB] 500 mg PO QDAY #7 tablet 02/02/19 Unknown Rx Review of Systems ROS: Stated complaint: ANTHONY Other details as noted in HPI Comment: All other systems reviewed and negative Medications and Allergies Allergies Allergy/AdvReac Type Severity Reaction Status Date / Time peanut Allergy Angioedema Verified 12/03/18 04:44 ipratropium bromide AdvReac Shortness Verified 12/03/18 04:44 [From Atrovent] of Breath Shellfish Allergy Unknown Uncoded 01/15/18 14:25 Home Medications Medication Instructions Recorded Confirmed Last Taken Type Carvedilol [Coreg] 6.25 mg PO BID #60 tablet 11/30/17 02/12/19 01/29/19 Rx Lisinopril [Zestril TAB] 5 mg PO QDAY #30 tablet 11/30/17 02/12/19 01/29/19 Rx Montelukast [Singulair] 10 mg PO QHS #30 tablet 02/20/18 02/12/19 01/29/19 Rx Albuterol Sulfate [Ventolin HFA] 2 puff IH Q4H PRN #1 hfa.aer.ad 07/26/18 02/12/19 01/30/19 Rx QUEtiapine [SEROquel] 50 mg PO QHS #30 tablet 07/26/18 02/12/19 01/29/19 Rx amLODIPine [Norvasc] 10 mg PO QDAY #30 tablet 07/26/18 02/12/19 01/29/19 Rx hydrALAZINE [Apresoline TAB] 25 mg PO Q8HR #90 tablet 07/26/18 02/12/19 01/29/19 Rx ALPRAZolam 0.25 mg PO BID 12/03/18 02/12/19 01/29/19 History Arformoterol Nebu [Brovana Nebu] 15 mcg IH Q12HRT #30 ml 02/02/19 02/12/19 Unknown Rx Budesonide [Pulmicort Respules] 0.5 mg IH Q12HRT #30 nebu 02/02/19 02/12/19 Unknown Rx Prednisone [predniSONE 10 mg 10 mg PO .TAPER #1 tab.ds.pk 02/02/19 02/12/19 Unknown Rx (6-Day Pack, 21 Tabs)] Active Meds: Active Medications Acetaminophen (Tylenol) 650 mg PO Q4H PRN PRN Reason: Pain MILD(1-3)/Fever >100.5/PÉREZ Albuterol (Proventil) 2.5 mg IH Q4HRT PRN PRN Reason: Shortness Of Breath Albuterol/Ipratropium (Duoneb *Not For Prn Use*) 1 ampul IH QIDRT [facility] Alprazolam (Xanax) 0.25 mg PO BID [facility] Last Admin: 02/12/19 22:55 Dose: Not Given Documented by: Amlodipine Besylate (Norvasc) 10 mg PO QDAY [facility] Last Admin: 02/12/19 21:42 Dose: Not Given Documented by: Arformoterol Tartrate (Brovana Nebu) 15 mcg IH Q12HRT [facility] Last Admin: 02/12/19 21:09 Dose: 15 mcg Documented by: Budesonide (Pulmicort) 0.5 mg IH Q12HRT [facility] Last Admin: 02/12/19 21:09 Dose: 0.5 mg Documented by: Carvedilol (Coreg) 6.25 mg PO BID [facility] Last Admin: 02/12/19 22:54 Dose: 6.25 mg Documented by: Enoxaparin Sodium (Lovenox) 40 mg SUB-Q QDAY@2200 [facility] Last Admin: 02/12/19 22:54 Dose: 40 mg Documented by: Famotidine (Pepcid) 20 mg PO BID [facility] Last Admin: 02/12/19 22:54 Dose: 20 mg Documented by: Hydralazine HCl (Apresoline) 25 mg PO Q8HR [facility] Last Admin: 02/13/19 06:41 Dose: 25 mg Documented by: Hydromorphone HCl (Dilaudid) 0.5 mg IV Q3H PRN PRN Reason: Pain , Severe (7-10) Levofloxacin/Dextrose (Levaquin 750mg/150ml) 750 mg in 150 mls @ 100 mls/hr IV Q24HR [facility]; Protocol Last Admin: 02/12/19 22:55 Dose: 100 mls/hr Documented by: Lisinopril (Zestril) 5 mg PO QDAY [facility] Last Admin: 02/12/19 21:42 Dose: Not Given Documented by: Methylprednisolone Sodium Succinate (Solu-Medrol) 80 mg IV Q8HR [facility] Last Admin: 02/13/19 06:41 Dose: 80 mg Documented by: Metoclopramide HCl (Reglan) 10 mg IV Q6H PRN PRN Reason: Nausea And Vomiting Montelukast Sodium (Singulair) 10 mg PO QHS [facility] Last Admin: 02/12/19 22:54 Dose: 10 mg Documented by: Ondansetron HCl (Zofran) 4 mg IV Q8H PRN PRN Reason: Nausea And Vomiting Oxycodone/Acetaminophen (Percocet 5/325) 1 tab PO Q6H PRN PRN Reason: Pain, Moderate (4-6) Last Admin: 02/13/19 00:24 Dose: 1 tab Documented by: Quetiapine Fumarate (Seroquel) 50 mg PO QHS [facility] Last Admin: 02/12/19 22:55 Dose: Not Given Documented by: Sodium Chloride (Sodium Chloride Flush Syringe 10 Ml) 10 ml IV BID [facility] Last Admin: 02/12/19 22:55 Dose: 10 ml Documented by: Sodium Chloride (Sodium Chloride Flush Syringe 10 Ml) 10 ml IV PRN PRN PRN Reason: LINE FLUSH Exam - Physical Exam Narrative exam: patient on BIpap - Constitutional Vitals: Temp Pulse Resp BP Pulse Ox 98.9 F 73 20 115/69 98 02/13/19 05:30 02/13/19 06:41 02/13/19 06:15 02/13/19 06:41 02/13/19 06:15 General appearance: Present: severe distress, well-nourished - EENT Eyes: Present: PERRL ENT: hearing intact, clear oral mucosa - Neck Neck: Present: supple, normal ROM - Respiratory Respiratory effort: normal Respiratory: bilateral: diminished, rhonchi, wheezing - Cardiovascular Heart rate: 98 Rhythm: regular Heart Sounds: Present: S1 & S2. Absent: rub, click - Extremities Extremities: no ischemia, pulses intact, pulses symmetrical, No edema Peripheral Pulses: within normal limits - Abdominal General gastrointestinal: Present: soft, non-tender, non-distended, normal bowel sounds Female genitourinary: Present: normal - Integumentary Integumentary: Present: clear, warm, dry - Musculoskeletal Musculoskeletal: gait normal, strength equal bilaterally - Psychiatric Psychiatric: appropriate mood/affect, intact judgment & insight - Neurologic Neurologic: CNII-XII intact, moves all extremities - Allied Health Allied health notes reviewed: nursing, case management Results - Labs CBC & Chem 7: 02/13/19 05:05 02/13/19 05:05 Labs: Laboratory Last Values WBC 5.9 K/mm3 (4.5-11.0) 02/13/19 05:05 RBC 3.58 M/mm3 (3.65-5.03) L 02/13/19 05:05 Hgb 11.8 gm/dl (10.1-14.3) 02/13/19 05:05 Hct 36.9 % (30.3-42.9) D 02/13/19 05:05 MCV 103 fl (79-97) H 02/13/19 05:05 MCH 33 pg (28-32) H 02/13/19 05:05 MCHC 32 % (30-34) 02/13/19 05:05 RDW 13.8 % (13.2-15.2) 02/13/19 05:05 Plt Count 251 K/mm3 (140-440) 02/13/19 05:05 Lymph % (Auto) 16.0 % (13.4-35.0) 02/12/19 16:50 O'Brien % (Auto) 5.8 % (0.0-7.3) 02/12/19 16:50 Eos % (Auto) 0.3 % (0.0-4.3) 02/12/19 16:50 Baso % (Auto) 0.3 % (0.0-1.8) 02/12/19 16:50 Lymph # 1.8 K/mm3 (1.2-5.4) 02/12/19 16:50 O'Brien # 0.7 K/mm3 (0.0-0.8) 02/12/19 16:50 Eos # 0.0 K/mm3 (0.0-0.4) 02/12/19 16:50 Baso # 0.0 K/mm3 (0.0-0.1) 02/12/19 16:50 Add Manual Diff Complete 02/13/19 05:05 Total Counted 100 02/13/19 05:05 Seg Neutrophils % Marine Painter 02/13/19 05:05 Seg Neuts % (Manual) 95.0 % (40.0-70.0) H 02/13/19 05:05 0 % 02/13/19 05:05 3.0 % (13.4-35.0) L 02/13/19 05:05 Reactive Lymphs % (Man) 0 % 02/13/19 05:05 2.0 % (0.0-7.3) 02/13/19 05:05 0 % (0.0-4.3) 02/13/19 05:05 0 % (0.0-1.8) 02/13/19 05:05 0 % 02/13/19 05:05 0 % 02/13/19 05:05 0 % 02/13/19 05:05 0 % 02/13/19 05:05 Nucleated RBC % Not Reportable 02/13/19 05:05 Seg Neutrophils # 8.8 K/mm3 (1.8-7.7) H 02/12/19 16:50 Seg Neutrophils # Man 5.6 K/mm3 (1.8-7.7) 02/13/19 05:05 Band Neutrophils # 0.0 K/mm3 02/13/19 05:05 0.2 K/mm3 (1.2-5.4) L 02/13/19 05:05 Abs React Lymphs (Man) 0.0 K/mm3 02/13/19 05:05 0.1 K/mm3 (0.0-0.8) 02/13/19 05:05 0.0 K/mm3 (0.0-0.4) 02/13/19 05:05 0.0 K/mm3 (0.0-0.1) 02/13/19 05:05 0.0 K/mm3 02/13/19 05:05 0.0 K/mm3 02/13/19 05:05 0.0 K/mm3 02/13/19 05:05 Blast Cells # 0.0 K/mm3 02/13/19 05:05 WBC Morphology Not Reportable 02/13/19 05:05 Hypersegmented Neuts Not Reportable 02/13/19 05:05 Hyposegmented Neuts Not Reportable 02/13/19 05:05 Hypogranular Neuts Not Reportable 02/13/19 05:05 Not Reportable 02/13/19 05:05 Not Reportable 02/13/19 05:05 Not Reportable 02/13/19 05:05 Not Reportable 02/13/19 05:05 Not Reportable 02/13/19 05:05 Not Reportable 02/13/19 05:05 Consistent w auto 02/13/19 05:05 Not Reportable 02/13/19 05:05 Plt Clumps, EDTA Not Reportable 02/13/19 05:05 Not Reportable 02/13/19 05:05 Not Reportable 02/13/19 05:05 Not Reportable 02/13/19 05:05 Plt Morphology Comment Not Reportable 02/13/19 05:05 RBC Morphology Not Reportable 02/13/19 05:05 Dimorphic RBCs Not Reportable 02/13/19 05:05 Not Reportable 02/13/19 05:05 Not Reportable 02/13/19 05:05 Not Reportable 02/13/19 05:05 Not Reportable 02/13/19 05:05 Not Reportable 02/13/19 05:05 1+ 02/13/19 05:05 Not Reportable 02/13/19 05:05 Not Reportable 02/13/19 05:05 Not Reportable 02/13/19 05:05 Not Reportable 02/13/19 05:05 Not Reportable 02/13/19 05:05 Not Reportable 02/13/19 05:05 1+ 02/13/19 05:05 Not Reportable 02/13/19 05:05 Not Reportable 02/13/19 05:05 Not Reportable 02/13/19 05:05 Not Reportable 02/13/19 05:05 Not Reportable 02/13/19 05:05 Not Reportable 02/13/19 05:05 Not Reportable 02/13/19 05:05 Acanthocytes (Spur) Not Reportable 02/13/19 05:05 Rouleaux Not Reportable 02/13/19 05:05 Not Reportable 02/13/19 05:05 Not Reportable 02/13/19 05:05 Not Reportable 02/13/19 05:05 Not Reportable 02/13/19 05:05 Hem Pathologist Commnt No 02/13/19 05:05 POC ABG pH 7.370 (7.35-7.45) 02/13/19 00:03 POC ABG pO2 80 (80-105) 02/13/19 00:03 POC ABG HCO3 47.2 (22-26 mml/L) 02/13/19 00:03 POC ABG Total CO2 50 (23-27mmol/L) 02/13/19 00:03 POC ABG O2 Sat 94 02/13/19 00:03 POC ABG Base Excess 22 ((-2) - (+3)mmol/L) 02/13/19 00:03 35 % 02/13/19 00:03 Sodium 142 mmol/L (137-145) 02/13/19 05:05 Potassium 5.4 mmol/L (3.6-5.0) H D 02/13/19 05:05 Chloride 93.7 mmol/L (98-107) L 02/13/19 05:05 Carbon Dioxide 40 mmol/L (22-30) H 02/13/19 05:05 14 mmol/L 02/13/19 05:05 BUN 16 mg/dL (7-17) 02/13/19 05:05 0.4 mg/dL (0.7-1.2) L 02/13/19 05:05 Estimated GFR > 60 ml/min 02/13/19 05:05 40 % 02/13/19 05:05 Glucose 93 mg/dL (65-100) 02/13/19 05:05 5.9 % (4-6) 02/12/19 16:50 Calcium 8.9 mg/dL (8.4-10.2) 02/13/19 05:05 0.20 mg/dL (0.1-1.2) 02/13/19 05:05 AST 11 units/L (5-40) 02/13/19 05:05 ALT 10 units/L (7-56) 02/13/19 05:05 53 units/L (35-129) 02/13/19 05:05 5.8 g/dL (6.3-8.2) L 02/13/19 05:05 3.3 g/dL (3.9-5) L 02/13/19 05:05 1.3 % 02/13/19 05:05 Short CBC 02/12/19 02/13/19 Range/Units 16:50 05:05 WBC 11.3 H 5.9 (4.5-11.0) K/mm3 Hgb 13.8 11.8 (10.1-14.3) gm/dl Hct 43.8 H 36.9 D (30.3-42.9) % Plt Count 287 251 (140-440) K/mm3 BMP 02/12/19 02/13/19 16:50 05:05 Sodium 144 142 Potassium 3.9 5.4 H D Chloride 92.2 L 93.7 L Carbon Dioxide 46 H* 40 H BUN 9 16 Creatinine 0.4 L 0.4 L Glucose 114 H 93 Calcium 9.3 8.9 Liver Function 02/13/19 Range/Units 05:05 Total Bilirubin 0.20 (0.1-1.2) mg/dL AST 11 (5-40) units/L ALT 10 (7-56) units/L Alkaline Phosphatase 53 (35-129) units/L Albumin 3.3 L (3.9-5) g/dL - Imaging and Cardiology Chest x-ray: report reviewed (Chronic Interstitial Lung disease,No acute findings) Assessment and Plan Advance Directives: Yes (Full code) VTE prophylaxis?: Chemical Plan of care discussed with patient/family: Yes - Patient Problems (1) Acute and chronic respiratory failure with hypercapnia Current Visit: No Status: Acute Plan to address problem: Cont BIPAP Intubation if necessary Recently discharged IV SOlumedrol IV abx and Nebulizer treatments RTC Pulmonary consult requested (2) CO2 narcosis Current Visit: No Status: Acute Plan to address problem: Patient lethargic sec to high CO2 levels of 120 (3) COPD with exacerbation Current Visit: Yes Status: Acute Plan to address problem: On bipap IV solumedrol IV abx and Neb tx rtc Intubation if necessary (4) GERD (gastroesophageal reflux disease) Current Visit: No Status: Chronic Qualifiers: Esophagitis presence: without esophagitis Qualified Code(s): K21.9 - Gastro-esophageal reflux disease without esophagitis Plan to address problem: On PPI's (5) HTN (hypertension) Current Visit: No Status: Acute Qualifiers: Hypertension type: essential hypertension Qualified Code(s): I10 - Essential (primary) hypertension (6) Malnutrition Current Visit: Yes Status: Chronic Qualifiers: Protein-calorie malnutrition severity: mild Plan to address problem: Mild Dietary supplements ordered (7) DVT prophylaxis Current Visit: No Status: Acute Plan to address problem: On Lovenox and GI prophylaxis
[2019-02-13] MEDS: DUONEB *Not for PRN Use IH SCH ×4 (07:50→20:03)
[2019-02-13] MEDS: PULMICORT IH SCH ×2 (07:50→20:03)
[2019-02-13] MEDS: BROVANA NEBU IH SCH ×2 (07:50→20:03)
[2019-02-13] MEDS: LEVAQUIN 750MG/150ML 750 MG/150 ML BAG IV SCH (09:42)
[2019-02-13] MEDS: ZESTRIL PO SCH (09:42)
[2019-02-13] MEDS: PEPCID PO SCH ×2 (09:42→22:45)
[2019-02-13] MEDS: NORVASC PO SCH (09:42)
[2019-02-13] MEDS: SODIUM CHLORIDE FLUSH SYRINGE 10 ML IV SCH ×2 (09:43→22:45)
[2019-02-13] MEDS: COREG PO SCH ×2 (09:43→22:46)
[2019-02-13] MEDS: XANAX PO SCH ×2 (09:43→22:45)
--- NOTE | 2019-02-13 13:38 | Consultation ---
History of Present Illness Consult date: 02/13/19 Reason for consult: dyspnea, cough, COPD History of present illness: PULMONARY AND CRITICAL CARE CONSULTATION. DR. PRASAD THANK YOU FOR AKING US TO PARTICIPATE IN THE CARE OF THIS PATIENT. 63-year-old female with a past medical history of COPD and hypertension presents to the hospital complaining of wheezing and shortness breath. Patient recently discharged from the hospital on 02/02/2019 after admission for COPD exacerbation. Patient was discharged on prednisone for 3 days, Levaquin for 7 days, as well as other medications. Patient states she took the medication as prescribed. Patient uses 3 L of oxygen at home as needed. She received magnesium 2 g, Solu-Medrol 125 mg, and albuterol 5 mg around with improvement. Room air saturation 88-89% upon arrival. She complains of a dry cough, no fever, no pain reported Patient presentlt on 4 litres O2 and O2 saturation running 98%.Still complaining shortness of breath, wheezing and cough. Coughing up brown sputum. Patient has heavy history of smoking 1 1/2 pack a day x 35 years. Stopped smoking 7 years ago. Denies alcohol or drug abuse. 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 Allergic to Peanut, Ipatropium bromide, Shell fish. Chest xray done on 02/12/19 reported IMPRESSION: 1. Chronic interstitial lung disease appears grossly stable. No superimposed pulmonary disease noted. ABG on 4 litres o2 POC ABG pH 7.370 (7.35-7.45) 02/13/19 00:03 POC ABG pO2 80 (80-105) 02/13/19 00:03 POC ABG HCO3 47.2 (22-26 mml/L) 02/13/19 00:03 POC ABG Total CO2 50 (23-27mmol/L) 02/13/19 00:03 POC ABG O2 Sat 94 02/13/19 00:03 Patient started on I/V solumedrol. I/V levaquin , aerosolized bronchodilators, S/C Lovenox and famotidine. Past History Past Medical History: COPD Medications and Allergies Allergies Allergy/AdvReac Type Severity Reaction Status Date / Time peanut Allergy Angioedema Verified 12/03/18 04:44 ipratropium bromide AdvReac Shortness Verified 12/03/18 04:44 [From Atrovent] of Breath Shellfish Allergy Unknown Uncoded 01/15/18 14:25 Home Medications Medication Instructions Recorded Confirmed Last Taken Type Carvedilol [Coreg] 6.25 mg PO BID #60 tablet 11/30/17 02/12/19 01/29/19 Rx Lisinopril [Zestril TAB] 5 mg PO QDAY #30 tablet 11/30/17 02/12/19 01/29/19 Rx Montelukast [Singulair] 10 mg PO QHS #30 tablet 02/20/18 02/12/19 01/29/19 Rx Albuterol Sulfate [Ventolin HFA] 2 puff IH Q4H PRN #1 hfa.aer.ad 07/26/18 02/12/19 01/30/19 Rx QUEtiapine [SEROquel] 50 mg PO QHS #30 tablet 07/26/18 02/12/19 01/29/19 Rx amLODIPine [Norvasc] 10 mg PO QDAY #30 tablet 07/26/18 02/12/19 01/29/19 Rx hydrALAZINE [Apresoline TAB] 25 mg PO Q8HR #90 tablet 07/26/18 02/12/19 01/29/19 Rx ALPRAZolam 0.25 mg PO BID 12/03/18 02/12/19 01/29/19 History Arformoterol Nebu [Brovana Nebu] 15 mcg IH Q12HRT #30 ml 02/02/19 02/12/19 Unknown Rx Budesonide [Pulmicort Respules] 0.5 mg IH Q12HRT #30 nebu 02/02/19 02/12/19 Unknown Rx Prednisone [predniSONE 10 mg 10 mg PO .TAPER #1 tab.ds.pk 02/02/19 02/12/19 Unknown Rx (6-Day Pack, 21 Tabs)] Active Meds: Active Medications Acetaminophen (Tylenol) 650 mg PO Q4H PRN PRN Reason: Pain MILD(1-3)/Fever >100.5/PÉREZ Albuterol (Proventil) 2.5 mg IH Q4HRT PRN PRN Reason: Shortness Of Breath Albuterol/Ipratropium (Duoneb *Not For Prn Use*) 1 ampul IH QIDRT [facility] Last Admin: 02/13/19 07:50 Dose: 1 ampul Documented by: Alprazolam (Xanax) 0.25 mg PO BID [facility] Last Admin: 02/13/19 09:43 Dose: 0.25 mg Documented by: Amlodipine Besylate (Norvasc) 10 mg PO QDAY [facility] Last Admin: 02/13/19 09:42 Dose: 10 mg Documented by: Arformoterol Tartrate (Brovana Nebu) 15 mcg IH Q12HRT [facility] Last Admin: 02/13/19 07:50 Dose: 15 mcg Documented by: Budesonide (Pulmicort) 0.5 mg IH Q12HRT [facility] Last Admin: 02/13/19 07:50 Dose: 0.5 mg Documented by: Carvedilol (Coreg) 6.25 mg PO BID [facility] Last Admin: 02/13/19 09:43 Dose: 6.25 mg Documented by: Enoxaparin Sodium (Lovenox) 40 mg SUB-Q QDAY@2200 [facility] Last Admin: 02/12/19 22:54 Dose: 40 mg Documented by: Famotidine (Pepcid) 20 mg PO BID [facility] Last Admin: 02/13/19 09:42 Dose: 20 mg Documented by: Hydralazine HCl (Apresoline) 25 mg PO Q8HR [facility] Last Admin: 02/13/19 06:41 Dose: 25 mg Documented by: Hydromorphone HCl (Dilaudid) 0.5 mg IV Q3H PRN PRN Reason: Pain , Severe (7-10) Levofloxacin/Dextrose (Levaquin 750mg/150ml) 750 mg in 150 mls @ 100 mls/hr IV Q24HR [facility]; Protocol Last Admin: 02/13/19 09:42 Dose: 100 mls/hr Documented by: Lisinopril (Zestril) 5 mg PO QDAY [facility] Last Admin: 02/13/19 09:42 Dose: 5 mg Documented by: Methylprednisolone Sodium Succinate (Solu-Medrol) 80 mg IV Q8HR [facility] Last Admin: 02/13/19 06:41 Dose: 80 mg Documented by: Metoclopramide HCl (Reglan) 10 mg IV Q6H PRN PRN Reason: Nausea And Vomiting Montelukast Sodium (Singulair) 10 mg PO QHS [facility] Last Admin: 02/12/19 22:54 Dose: 10 mg Documented by: Ondansetron HCl (Zofran) 4 mg IV Q8H PRN PRN Reason: Nausea And Vomiting Oxycodone/Acetaminophen (Percocet 5/325) 1 tab PO Q6H PRN PRN Reason: Pain, Moderate (4-6) Last Admin: 02/13/19 13:31 Dose: 1 tab Documented by: Quetiapine Fumarate (Seroquel) 50 mg PO QHS [facility] Last Admin: 02/12/19 22:55 Dose: Not Given Documented by: Sodium Chloride (Sodium Chloride Flush Syringe 10 Ml) 10 ml IV BID [facility] Last Admin: 02/13/19 09:43 Dose: 10 ml Documented by: Sodium Chloride (Sodium Chloride Flush Syringe 10 Ml) 10 ml IV PRN PRN PRN Reason: LINE FLUSH Review of Systems All systems: negative Physical Examination Vital signs: Vital Signs Temp Pulse Resp Pulse Ox 98.0 F 87 23 95 02/12/19 16:50 02/12/19 16:50 02/12/19 16:50 02/12/19 16:50 General appearance: alert, appears uncomfortable Eyes: non-icteric ENT: oropharynx dry Neck: supple, no JVD Effort: mildly labored Ascultation: Bilateral: diminished breath sounds, other (Prolonged expiratory phase.) Cardiovascular: regular rate and rhythm Gastrointestinal: normoactive bowel sounds, soft, non-tender Integumentary: normal Extremities: no cyanosis, no edema Musculoskeletal: no deformities normal mental status, non-focal exam, pupils equal and round, CN II-XII normal anxious Results - Laboratory Findings CBC and BMP: 02/13/19 05:05 02/13/19 05:05 ABG POC ABG pH 7.370 (7.35-7.45) 02/13/19 00:03 POC ABG pO2 80 (80-105) 02/13/19 00:03 POC ABG HCO3 47.2 (22-26 mml/L) 02/13/19 00:03 POC ABG Total CO2 50 (23-27mmol/L) 02/13/19 00:03 POC ABG O2 Sat 94 02/13/19 00:03 Abnormal lab findings: Abnormal Labs 02/12/19 02/12/19 02/12/19 16:50 16:50 17:18 WBC 11.3 H RBC Hct 43.8 H MCV 104 H MCH 33 H Seg Neutrophils % 77.6 H Seg Neuts % (Manual) Lymphocytes % (Manual) Seg Neutrophils # 8.8 H Lymphocytes # (Manual) POC ABG pH 7.259 L Potassium Chloride 92.2 L Carbon Dioxide 46 H* Creatinine 0.4 L Glucose 114 H Total Protein Albumin 02/13/19 02/13/19 05:05 05:05 WBC RBC 3.58 L Hct MCV 103 H MCH 33 H Seg Neutrophils % Seg Neuts % (Manual) 95.0 H Lymphocytes % (Manual) 3.0 L Seg Neutrophils # Lymphocytes # (Manual) 0.2 L POC ABG pH Potassium 5.4 H D Chloride 93.7 L Carbon Dioxide 40 H Creatinine 0.4 L Glucose Total Protein 5.8 L Albumin 3.3 L - Diagnostic Findings Chest x-ray: report reviewed, image reviewed Additional studies: Chest xray done on IMPRESSION: 1. Chronic interstitial lung disease appears grossly stable. No superimposed pulmonary disease noted. Assessment and Plan 3-year-old female with a past medical history of COPD and hypertension presents to the hospital complaining of wheezing and shortness breath. Patient recently discharged from the hospital on 02/02/2019 after admission for COPD exacerbation. Patient was discharged on prednisone for 3 days, Levaquin for 7 days, as well as other medications. Patient states she took the medication as prescribed. Patient uses 3 L of oxygen at home as needed. She received magnesium 2 g, Solu-Medrol 125 mg, and albuterol 5 mg around with improvement. Room air saturation 88-89% upon arrival. She complains of a dry cough, no fever, no pain reported Patient presentlt on 4 litres O2 and O2 saturation running 98%.Still complaining shortness of breath, wheezing and cough. Coughing up brown sputum. Patient has heavy history of smoking 1 1/2 pack a day x 35 years. Stopped smoking 7 years ago. Denies alcohol or drug abuse. 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 Allergic to Peanut, Ipatropium bromide, Shell fish. Chest xray done on 02/12/19 reported IMPRESSION: 1. Chronic interstitial lung disease appears grossly stable. No superimposed pulmonary disease noted. ABG on 4 litres o2 POC ABG pH 7.370 (7.35-7.45) 02/13/19 00:03 POC ABG pO2 80 (80-105) 02/13/19 00:03 POC ABG HCO3 47.2 (22-26 mml/L) 02/13/19 00:03 POC ABG Total CO2 50 (23-27mmol/L) 02/13/19 00:03 POC ABG O2 Sat 94 02/13/19 00:03 Patient started on I/V solumedrol. I/V levaquin , aerosolized bronchodilators, S/C Lovenox and famotidine. - Patient Problems (1) COPD with exacerbation Current Visit: Yes Status: Acute Plan to address problem: O2 4 litres via nasal canula. Albuterol/atrovent aerosol treatments q 6 hours. Continue I/V solumedrol. Continue I/V Levaquin. Continue S/C Lovenox. Continue Famotidine. PFTs as out patient. (2) Acute and chronic respiratory failure with hypercapnia Current Visit: No Status: Acute Plan to address problem: O2 4 litres via nasal canula. Albuterol/atrovent aerosol treatments q 6 hours. Continue I/V solumedrol. Continue I/V Levaquin. Continue S/C Lovenox. Continue Famotidin (3) Acute bronchitis Current Visit: Yes Status: Acute Plan to address problem: Patient is on I/V Levaquin.
--- NOTE | 2019-02-13 16:36 | Progress Note ---
Assessment and Plan /Acute on chronic respiratory failure with hypercapnia Cont BIPAP as needed Recently discharged IV SOlumedrol IV abx and Nebulizer treatments RTC Pulmonary consult requested /Acute encephalopathy due to CO2 narcosis, now resolved Patient was lethargic sec to high CO2 levels of 120 / COPD with exacerbation IV solumedrol IV abx and Neb tx rtc Bipap as needed /Hyperkalemia, give 1 dose of Kayexalate, stop lisinopril, recheck BMP in the am / GERD (gastroesophageal reflux disease) On PPI's / HTN (hypertension) Continue to monitor BP, adjust BP meds as needed /Malnutrition, Mild Dietary supplements ordered / DVT prophylaxis On Lovenox and GI prophylaxis Brief History: 63-year-old female with a past medical history of COPD and hypertension presents to the hospital complaining of wheezing and shortness breath. Patient recently discharged from the hospital on 02/02/2019 after admission for COPD exac erbation. Patient was discharged on prednisone for 3 days, Levaquin for 7 days, as well as other medications. Patient states she took the medication as prescribed. Patient uses 3 L of oxygen at home as needed. She received magnesium 2 g, Solu-Medrol 125 mg, and albuterol 5 mg around with improvement. Room air saturation 88-89% upon arrival. Radiological data: Chest x-ray: 1. Chronic interstitial lung disease appears grossly stable. No superimposed pulmonary disease noted. Hospitalist Physical exam: GENERAL: elderly AAF lying on bed appeared to be in mild discomfort. HEENT: Normocephalic. Atraumatic. No conjunctival congestion or icterus. Patient has moist mucous membranes. NECK: Supple. Trachea midline. CHEST/LUNGS: diminished BS auscultated bilaterally, + rhonchi. HEART/CARDIOVASCULAR: Regular in rate and rhythm. S1 and S2 positive. ABDOMEN: Abdomen is soft, nontender. Patient has normal bowel sounds. SKIN: There is no rash. Warm and dry. NEURO: No focal motor deficit. Follows command. MUSCULOSKELETAL: No joint effusion or tenderness. EXTRIMITY: No edema, no cyanosis or clubbing. PSYCH: Cooperative. Subjective Date of service: 02/13/19 Interval history: Patient seen and examined. Medical records and medication list reviewed. No acute event overnight noted by the RN. Patient continued to complaints of difficulty breathing even on resting. Patient is tolerating diet. off venti mask/BiPAP this morning Discussed plan of care at bedside with patient. Objective - Constitutional Vitals: Vital Signs - 12hr 02/13/19 02/13/19 02/13/19 05:30 06:15 06:41 Temperature 98.9 F Pulse Rate 73 73 Pulse Rate [ 88 Anterior Bilateral Throughout] Pulse Rate [ 85 Posterior Bilateral Throughout] Respiratory 20 Rate Respiratory 20 Rate [Anterior Bilateral Throughout] Respiratory 22 Rate [Posterior Bilateral Throughout] Blood Pressure 115/69 115/69 O2 Sat by Pulse 98 98 Oximetry 02/13/19 02/13/19 02/13/19 07:50 08:00 08:16 Temperature Pulse Rate Pulse Rate [ 95 H 95 H Anterior Bilateral Throughout] Pulse Rate [ 94 H 94 H Posterior Bilateral Throughout] Respiratory Rate Respiratory 20 20 Rate [Anterior Bilateral Throughout] Respiratory 18 18 Rate [Posterior Bilateral Throughout] Blood Pressure O2 Sat by Pulse 98 Oximetry 02/13/19 02/13/19 02/13/19 09:38 09:42 09:43 Temperature Pulse Rate Pulse Rate [ Anterior Bilateral Throughout] Pulse Rate [ Posterior Bilateral Throughout] Respiratory Rate Respiratory Rate [Anterior Bilateral Throughout] Respiratory Rate [Posterior Bilateral Throughout] Blood Pressure 117/62 117/62 117/62 O2 Sat by Pulse Oximetry 02/13/19 02/13/19 02/13/19 12:47 14:08 14:11 Temperature 99.4 F Pulse Rate Pulse Rate [ 85 Anterior Bilateral Throughout] Pulse Rate [ 85 Posterior Bilateral Throughout] Respiratory 19 Rate Respiratory 18 Rate [Anterior Bilateral Throughout] Respiratory 18 Rate [Posterior Bilateral Throughout] Blood Pressure 124/60 124/60 O2 Sat by Pulse Oximetry - Labs CBC & Chem 7: 02/13/19 05:05 02/13/19 05:05 Labs: Abnormal lab results 02/12/19 02/12/19 02/12/19 Range/Units 16:50 16:50 17:18 WBC 11.3 H (4.5-11.0) K/mm3 RBC (3.65-5.03) M/mm3 Hct 43.8 H (30.3-42.9) % MCV 104 H (79-97) fl MCH 33 H (28-32) pg Seg Neutrophils % 77.6 H (40.0-70.0) % Seg Neuts % (Manual) (40.0-70.0) % Lymphocytes % (Manual) (13.4-35.0) % Seg Neutrophils # 8.8 H (1.8-7.7) K/mm3 Lymphocytes # (Manual) (1.2-5.4) K/mm3 POC ABG pH 7.259 L (7.35-7.45) Potassium (3.6-5.0) mmol/L Chloride 92.2 L (98-107) mmol/L Carbon Dioxide 46 H* (22-30) mmol/L Creatinine 0.4 L (0.7-1.2) mg/dL Glucose 114 H (65-100) mg/dL Total Protein (6.3-8.2) g/dL Albumin (3.9-5) g/dL 02/13/19 02/13/19 Range/Units 05:05 05:05 WBC (4.5-11.0) K/mm3 RBC 3.58 L (3.65-5.03) M/mm3 Hct (30.3-42.9) % MCV 103 H (79-97) fl MCH 33 H (28-32) pg Seg Neutrophils % (40.0-70.0) % Seg Neuts % (Manual) 95.0 H (40.0-70.0) % Lymphocytes % (Manual) 3.0 L (13.4-35.0) % Seg Neutrophils # (1.8-7.7) K/mm3 Lymphocytes # (Manual) 0.2 L (1.2-5.4) K/mm3 POC ABG pH (7.35-7.45) Potassium 5.4 H D (3.6-5.0) mmol/L Chloride 93.7 L (98-107) mmol/L Carbon Dioxide 40 H (22-30) mmol/L Creatinine 0.4 L (0.7-1.2) mg/dL Glucose (65-100) mg/dL Total Protein 5.8 L (6.3-8.2) g/dL Albumin 3.3 L (3.9-5) g/dL
[2019-02-13] MEDS ORDERED: KIONEX PO ONE (17:36)
[2019-02-13] MEDS: LOVENOX SUB-Q SCH (22:44)
[2019-02-13] MEDS: SINGULAIR PO SCH (22:45)
[2019-02-14] MEDS: APRESOLINE PO SCH ×2 (05:15→15:26)
[2019-02-14] MEDS: SOLU-Medrol IV SCH ×2 (05:16→15:26)
[2019-02-14 08:28] LABS: BUN/Creatinine Ratio 47; Blood Urea Nitrogen 14 mg/dL (7-17); Hemolysis Index 2
[2019-02-14] MEDS: PULMICORT IH SCH ×2 (10:22→20:29)
[2019-02-14] MEDS: NORVASC PO SCH (10:22)
[2019-02-14] MEDS: BROVANA NEBU IH SCH ×2 (10:22→20:29)
[2019-02-14] MEDS: DUONEB *Not for PRN Use IH SCH ×4 (10:22→20:29)
[2019-02-14] MEDS: COREG PO SCH (10:22)
[2019-02-14] MEDS: XANAX PO SCH (10:22)
[2019-02-14] MEDS: PEPCID PO SCH (10:22)
[2019-02-14] MEDS: LEVAQUIN 750MG/150ML 750 MG/150 ML BAG IV SCH (10:23)
[2019-02-14] MEDS: SODIUM CHLORIDE FLUSH SYRINGE 10 ML IV SCH (10:25)
--- NOTE | 2019-02-14 12:59 | Discharge Summary ---
Providers - Providers Date of Admission: 02/12/19 17:46 Date of discharge: 02/14/19 Attending physician: ANNA MCINTOSH 02/12/19 20:53 Consult to Physician [CONS] Routine Comment: Consulting Provider: DIEGO SHABAZZ Physician Instructions: Reason For Exam: Acute respiratory failure Hospitalization Condition: Stable Hospital course: 63-year-old female with a past medical history of COPD and hypertension presents to the hospital complaining of wheezing and shortness breath. Patient recently discharged from the hospital on 02/02/2019 after admission for COPD exacerbation. Patient was discharged on prednisone for 3 days, Levaquin for 7 days, as well as other medications. Patient states she took the medication as prescribed. Patient uses 3 L of oxygen at home as needed. She received magnesium 2 g, Solu-Medrol 125 mg, and albuterol 5 mg around with improvement. Room air saturation 88-89% upon arrival. Patient was admitted for further evaluation and management Radiological data: Chest x-ray: 1. Chronic interstitial lung disease appears grossly stable. No superimposed pulmonary disease noted. Discharge diagnosis and management: /Acute on chronic respiratory failure with hypercapnia Placed on Cont BIPAP on admission and as needed, IV SOlumedrol IV abx and Nebulizer treatments RTC Pulmonary consult requested - recommended to have a PFT as an outpatient, The patient admitted to this hospital this year with SOB 4 times already. despite her O2 therapy she is experiencing AMS, daytime fatigue, CO2 retention as evident on recent ABGs, breath stacking, SOB. The patients disease impedes adequate ventilation support. We recommending NIV to help with improve quality of life and prevent future hospital re-admission. Patient's symptom improved with medical management, discharged home with 3-4 L O2 nasal cannula and trilogy /Acute encephalopathy due to CO2 narcosis, now resolved with iv nebs, iv steroid and BiPAP at bedtime Patient was lethargic sec to high CO2 levels of 120 / COPD with exacerbation Treated with IV solumedrol IV abx and Neb tx rtc, Bipap as needed Recommended to avoid secondary smoking exposure, tobacco cessation, compliant with medications, increased home oxygen to 3-4 L nasal cannula and trilogy Also recommended outpatient follow-up for PFT, patient may need BiPAP at bedtime and /Hyperkalemia, given 1 dose of Kayexalate, stopped lisinopril, resolved / GERD (gastroesophageal reflux disease) On PPI's A1 / HTN (hypertension) Continue to monitor BP, adjust BP meds as needed /Malnutrition, Mild Dietary supplements ordered /Tobacco abuse, remote history - has heavy history of smoking 1 1/2 pack a day x 35 years. Stopped smoking 7 years ago. / DVT prophylaxis On Lovenox and GI prophylaxis Hospitalist Physical exam: GENERAL: elderly AAF lying on bed appeared to be in mild discomfort. HEENT: Normocephalic. Atraumatic. No conjunctival congestion or icterus. Patient has moist mucous membranes. NECK: Supple. Trachea midline. CHEST/LUNGS: diminished BS auscultated bilaterally, + rhonchi. HEART/CARDIOVASCULAR: Regular in rate and rhythm. S1 and S2 positive. ABDOMEN: Abdomen is soft, nontender. Patient has normal bowel sounds. SKIN: There is no rash. Warm and dry. NEURO: No focal motor deficit. Follows command. MUSCULOSKELETAL: No joint effusion or tenderness. EXTRIMITY: No edema, no cyanosis or clubbing. PSYCH: Cooperative. Disposition: [id number] HOME UNDER HOME [facility] Time spent for discharge: 35 minutes Core Measure Documentation - Palliative Care Palliative Care/ Comfort Measures: Not Applicable - Core Measures Any of the following diagnoses?: none Exam - Constitutional Vitals: Temp Pulse Resp BP Pulse Ox 98.2 F 90 18 113/60 92 02/14/19 05:54 02/14/19 10:27 02/14/19 10:27 02/14/19 05:54 02/14/19 10:00 Plan Activity: advance as tolerated Weight Bearing Status: Non-Weight Bearing Diet: low fat, low salt Special Instructions: home oxygen via (4L n/c ) Follow up with: CHELSEA SOUSABATON ROUGE MD ALYSSA [Referring] - 3-5 Days DIEGO SHABAZZ MD [Staff Physician] - 7 Days Prescriptions: levoFLOXacin [Levaquin] 750 mg PO QDAY #4 tablet Prednisone [predniSONE 10 mg (6-Day Pack, 21 Tabs)] 10 mg PO .TAPER #1 tab.ds.pk Ipratropium/Albuterol Sulfate [DUONEB *Not for PRN Use*] 1 ampul IH QIDRT #30 ampul.neb
[2019-02-14 13:14] VITALS: BP 123/61
--- NOTE | 2019-02-14 14:10 | Progress Note ---
Assessment and Plan Patient feels her shortness of breath has improved. Patient presently on 3L NC O2 saturation running 94%. Afebrile. No leukocytosis. ABG done 02/13/19 shows pH 7.37, PCO2 50, PO2 80, HCO3 47.2. O2 saturation 94% on FiO2 35%. - Patient Problems (1) COPD with exacerbation Current Visit: Yes Status: Acute Plan to address problem: O2 3 litres via nasal canula. Albuterol/atrovent aerosol treatments q 6 hours. Continue I/V solumedrol. Continue I/V Levaquin. Continue S/C Lovenox. Continue Famotidine. PFTs as out patient. (2) Acute and chronic respiratory failure with hypercapnia Current Visit: No Status: Acute Plan to address problem: O2 3 litres via nasal canula. Albuterol/atrovent aerosol treatments q 6 hours. Continue I/V solumedrol. Continue I/V Levaquin. Continue S/C Lovenox. Continue Famotidin (3) Acute bronchitis Current Visit: Yes Status: Acute Plan to address problem: Patient is on I/V Levaquin. Subjective Date of service: 02/14/19 Interval history: Patient feels her shortness of breath has improved. Patient presently on 3L NC O2 saturation running 94%. Afebrile. No leukocytosis. ABG done 02/13/19 shows pH 7.37, PCO2 50, PO2 80, HCO3 47.2. O2 saturation 94% on FiO2 35%. Objective Vital Signs - 12hr 02/14/19 02/14/19 02/14/19 05:14 05:15 05:54 Temperature 97.8 F 98.2 F Pulse Rate 65 71 67 Pulse Rate [ Anterior Bilateral Throughout] Respiratory 19 18 Rate Respiratory Rate [Anterior Bilateral Throughout] Blood Pressure 126/60 126/60 113/60 O2 Sat by Pulse 100 98 Oximetry 02/14/19 02/14/19 02/14/19 10:00 10:27 12:20 Temperature 98.3 F Pulse Rate 104 H Pulse Rate [ 90 Anterior Bilateral Throughout] Respiratory 18 Rate Respiratory 18 Rate [Anterior Bilateral Throughout] Blood Pressure 123/61 O2 Sat by Pulse 92 94 Oximetry Constitutional: no acute distress, alert Eyes: non-icteric ENT: oropharynx dry Neck: supple, no JVD Effort: normal Ascultation: Bilateral: diminished breath sounds, other (Prolonged expiratory phase.) Cardiovascular: regular rate and rhythm Gastrointestinal: normoactive bowel sounds, soft, non-tender Integumentary: normal Extremities: no cyanosis, no edema Neurologic: normal mental status, non-focal exam, pupils equal and round, CN II- XII normal Psychiatric: anxious CBC and BMP: 02/13/19 05:05 02/14/19 06:55 ABG, PT/INR, D-dimer: ABG POC ABG pH 7.370 (7.35-7.45) 02/13/19 00:03 POC ABG pO2 80 (80-105) 02/13/19 00:03 POC ABG HCO3 47.2 (22-26 mml/L) 02/13/19 00:03 POC ABG Total CO2 50 (23-27mmol/L) 02/13/19 00:03 POC ABG O2 Sat 94 02/13/19 00:03 Abnormal lab findings: Abnormal Labs 02/12/19 02/12/19 02/12/19 16:50 16:50 17:18 WBC 11.3 H RBC Hct 43.8 H MCV 104 H MCH 33 H Seg Neutrophils % 77.6 H Seg Neuts % (Manual) Lymphocytes % (Manual) Seg Neutrophils # 8.8 H Lymphocytes # (Manual) POC ABG pH 7.259 L Potassium Chloride 92.2 L Carbon Dioxide 46 H* Creatinine 0.4 L Glucose 114 H Total Protein Albumin 02/13/19 02/13/19 02/14/19 05:05 05:05 06:55 WBC RBC 3.58 L Hct MCV 103 H MCH 33 H Seg Neutrophils % Seg Neuts % (Manual) 95.0 H Lymphocytes % (Manual) 3.0 L Seg Neutrophils # Lymphocytes # (Manual) 0.2 L POC ABG pH Potassium 5.4 H D Chloride 93.7 L 93.3 L Carbon Dioxide 40 H 44 H* Creatinine 0.4 L 0.3 L Glucose 137 H Total Protein 5.8 L Albumin 3.3 L Chest x-ray: report reviewed, image reviewed Additional Studies: Chest XRAY 02/12/29: FINDINGS: SUPPORT DEVICES: None. HEART / MEDIASTINUM: No significant abnormality. LUNGS / PLEURA: Chronic interstitial disease is again noted not appreciably changed. The lungs are otherwise grossly clear. No pneumothorax. ADDITIONAL FINDINGS: No significant additional findings. IMPRESSION: 1. Chronic interstitial lung disease appears grossly stable. No superimposed pulmonary disease noted.
--- NOTE | 2019-02-15 11:03 | Progress Note ---
Assessment and Plan Patient cdischarged before i see her.. - Patient Problems (1) COPD with exacerbation Status: Acute (2) Acute and chronic respiratory failure with hypercapnia Status: Acute (3) Acute bronchitis Status: Acute Subjective Date of service: 02/15/19 Interval history: Patient already discharged before i see her. Objective Effort: normal CBC and BMP: 02/13/19 05:05 02/14/19 06:55 ABG, PT/INR, D-dimer: ABG POC ABG pH 7.370 (7.35-7.45) 02/13/19 00:03 POC ABG pO2 80 (80-105) 02/13/19 00:03 POC ABG HCO3 47.2 (22-26 mml/L) 02/13/19 00:03 POC ABG Total CO2 50 (23-27mmol/L) 02/13/19 00:03 POC ABG O2 Sat 94 02/13/19 00:03 Abnormal lab findings: Abnormal Labs 02/12/19 02/12/19 02/12/19 16:50 16:50 17:18 WBC 11.3 H RBC Hct 43.8 H MCV 104 H MCH 33 H Seg Neutrophils % 77.6 H Seg Neuts % (Manual) Lymphocytes % (Manual) Seg Neutrophils # 8.8 H Lymphocytes # (Manual) POC ABG pH 7.259 L Potassium Chloride 92.2 L Carbon Dioxide 46 H* Creatinine 0.4 L Glucose 114 H Total Protein Albumin 02/13/19 02/13/19 02/14/19 05:05 05:05 06:55 WBC RBC 3.58 L Hct MCV 103 H MCH 33 H Seg Neutrophils % Seg Neuts % (Manual) 95.0 H Lymphocytes % (Manual) 3.0 L Seg Neutrophils # Lymphocytes # (Manual) 0.2 L POC ABG pH Potassium 5.4 H D Chloride 93.7 L 93.3 L Carbon Dioxide 40 H 44 H* Creatinine 0.4 L 0.3 L Glucose 137 H Total Protein 5.8 L Albumin 3.3 L
--- NOTE | 2019-02-17 14:11 | Event Note ---
Date: 02/17/19 Patient presented with Acute on chronic respiratory failure with hypercapnia due to severe COPD - The patient admitted to this hospital this year with SOB 4 times already. despite her O2 therapy she is experiencing daytime fatigue, CO2 retention as evident on recent ABGs, breath stacking, SOB. The patients disease impedes adequate ventilation support. We recommending NIV to help with improve quality of life and prevent future hospital re-admission. Clau Tamez NPI - [id number]
== END 2019-02-14 18:30 | disposition home health service (06) | DRG 189 ==
LOC: ED 16:28 → 3A 17:46
PROVIDERS: ADMIT Internal Medicine; ATTEND Internal Medicine
PROC: 5A09357 Assistance with Respiratory Ventilation, Less than 24 Consecutive Hours, Continuous Positive Airway Pressure (ICD-10-PCS; principal; 2019-02-12)
PROC: 4A033R1 Measurement of Arterial Saturation, Peripheral, Percutaneous Approach (ICD-10-PCS; 2019-02-12)
PROC: 5A09357 Assistance with Respiratory Ventilation, Less than 24 Consecutive Hours, Continuous Positive Airway Pressure (ICD-10-PCS; 2019-02-13)
DX: J96.22 Acute and chronic respiratory failure with hypercapnia (principal); J44.1 Chronic obstructive pulmonary disease with (acute) exacerbation; E44.1 Mild protein-calorie malnutrition; G93.49 Other encephalopathy; J44.0 Chronic obstructive pulmonary disease with (acute) lower respiratory infection; E87.5 Hyperkalemia; K21.9 Gastro-esophageal reflux disease without esophagitis; J20.9 Acute bronchitis, unspecified; I10 Essential (primary) hypertension; Z87.891 Personal history of nicotine dependence; Z82.49 Family history of ischemic heart disease and other diseases of the circulatory system; Z79.899 Other long term (current) drug therapy; Z79.51 Long term (current) use of inhaled steroids; Z79.01 Long term (current) use of anticoagulants; Z88.8 Allergy status to other drugs, medicaments and biological substances; Z91.010 Allergy to peanuts; Z91.013 Allergy to seafood; Z68.20 Body mass index [BMI] 20.0-20.9, adult
CPT/HCPCS: 36415; 36600; 71045; 80048; 80053; 82803; 83036; 85007; 85025; 94640; 94644; 94660; 94760; 96360; G0378; J1650; J1956; J2920; J7030

== ENCOUNTER 2019-02-28 16:15 | Inpatient (IN) | payer MEDICARE ==
[2019-02-28] MEDS ORDERED: SOLU-Medrol IV ONE (16:49)
--- NOTE | 2019-02-28 16:53 | Emergency Department Report ---
ED Shortness of Breath HPI - General Chief Complaint: Dyspnea/Respdistress Stated Complaint: ANTHONY Time Seen by Provider: 02/28/19 16:44 Source: EMS Mode of arrival: Stretcher Limitations: No Limitations - History of Present Illness Initial Comments: Patient is 63 years old female with history of hypertension and COPD. Patient presented to the ER complaining of shortness of breath, cough productive for the last 3 days. Patient stated that she was recently discharged from the hospital for the same symptoms. Patient denied any fever or chills. No chest pain. MD Complaint: shortness of breath, cough -: days(s) Known History Of: COPD - Related Data Home Medications Medication Instructions Recorded Confirmed Last Taken ALPRAZolam 0.25 mg PO BID 12/03/18 02/12/19 01/29/19 Previous Rx's Medication Instructions Recorded Last Taken Type Carvedilol [Coreg] 6.25 mg PO BID #60 tablet 11/30/17 01/29/19 Rx Lisinopril [Zestril TAB] 5 mg PO QDAY #30 tablet 11/30/17 01/29/19 Rx Montelukast [Singulair] 10 mg PO QHS #30 tablet 02/20/18 01/29/19 Rx Albuterol Sulfate [Ventolin HFA] 2 puff IH Q4H PRN #1 hfa.aer.ad 07/26/18 01/30/19 Rx QUEtiapine [SEROquel] 50 mg PO QHS #30 tablet 07/26/18 01/29/19 Rx amLODIPine [Norvasc] 10 mg PO QDAY #30 tablet 07/26/18 01/29/19 Rx hydrALAZINE [Apresoline TAB] 25 mg PO Q8HR #90 tablet 07/26/18 01/29/19 Rx Arformoterol Nebu [Brovana Nebu] 15 mcg IH Q12HRT #30 ml 02/02/19 Unknown Rx Budesonide [Pulmicort Respules] 0.5 mg IH Q12HRT #30 nebu 02/02/19 Unknown Rx Ipratropium/Albuterol Sulfate 1 ampul IH QIDRT #30 ampul.neb 02/14/19 Unknown Rx [DUONEB *Not for PRN Use*] Prednisone [predniSONE 10 mg 10 mg PO .TAPER #1 tab.ds.pk 02/14/19 Unknown Rx (6-Day Pack, 21 Tabs)] levoFLOXacin [Levaquin] 750 mg PO QDAY #4 tablet 02/14/19 Unknown Rx Allergies Allergy/AdvReac Type Severity Reaction Status Date / Time peanut Allergy Angioedema Verified 12/03/18 04:44 ipratropium bromide AdvReac Shortness Verified 12/03/18 04:44 [From Atrovent] of Breath Shellfish Allergy Unknown Uncoded 01/15/18 14:25 ED Review of Systems ROS: Stated complaint: ANTHONY Other details as noted in HPI Comment: All other systems reviewed and negative Constitutional: denies: chills, fever Respiratory: cough, orthopnea, shortness of breath, SOB with exertion, wheezing Cardiovascular: denies: chest pain, palpitations Gastrointestinal: denies: abdominal pain, nausea, vomiting, diarrhea, constipation, hematemesis, melena, hematochezia Musculoskeletal: denies: back pain Neurological: denies: headache, weakness ED Past Medical Hx - Past Medical History Hx Hypertension: Yes Hx CVA: No Hx Heart Attack/AMI: No Hx Congestive Heart Failure: No Hx Diabetes: No Hx Deep Vein Thrombosis: No Hx Pulmonary Embolism: No Hx GERD: No Hx Liver Disease: No Hx Renal Disease: No Hx Sickle Cell Disease: No Hx Arthritis: No Hx Headaches / Migraines: No Hx Seizures: No Hx Kidney Stones: No Hx Psychiatric Treatment: No Hx Asthma: Yes Hx COPD: Yes Hx Tuberculosis: No Hx Dementia: No Hx HIV: No Additional medical history: hx intubation - Surgical History Hx Coronary Stent: No Hx Open Heart Surgery: No Hx Pacemaker: No Hx Internal Defibrillator: No Hx Cholecystectomy: No Hx Appendectomy: No Hx Breast Surgery: No - Social History Smoking Status: Never Smoker Substance Use Type: Alcohol - Medications Home Medications: Home Medications Medication Instructions Recorded Confirmed Last Taken Type Carvedilol [Coreg] 6.25 mg PO BID #60 tablet 11/30/17 02/12/19 01/29/19 Rx Lisinopril [Zestril TAB] 5 mg PO QDAY #30 tablet 11/30/17 02/12/19 01/29/19 Rx Montelukast [Singulair] 10 mg PO QHS #30 tablet 02/20/18 02/12/19 01/29/19 Rx Albuterol Sulfate [Ventolin HFA] 2 puff IH Q4H PRN #1 hfa.aer.ad 07/26/18 02/12/19 01/30/19 Rx QUEtiapine [SEROquel] 50 mg PO QHS #30 tablet 07/26/18 02/12/19 01/29/19 Rx amLODIPine [Norvasc] 10 mg PO QDAY #30 tablet 07/26/18 02/12/19 01/29/19 Rx hydrALAZINE [Apresoline TAB] 25 mg PO Q8HR #90 tablet 07/26/18 02/12/19 01/29/19 Rx ALPRAZolam 0.25 mg PO BID 12/03/18 02/12/19 01/29/19 History Arformoterol Nebu [Brovana Nebu] 15 mcg IH Q12HRT #30 ml 02/02/19 02/12/19 Unknown Rx Budesonide [Pulmicort Respules] 0.5 mg IH Q12HRT #30 nebu 02/02/19 02/12/19 Unknown Rx Ipratropium/Albuterol Sulfate 1 ampul IH QIDRT #30 ampul.neb 02/14/19 Unknown Rx [DUONEB *Not for PRN Use*] Prednisone [predniSONE 10 mg 10 mg PO .TAPER #1 tab.ds.pk 02/14/19 Unknown Rx (6-Day Pack, 21 Tabs)] levoFLOXacin [Levaquin] 750 mg PO QDAY #4 tablet 02/14/19 Unknown Rx ED Physical Exam - General Limitations: No Limitations General appearance: alert, in no apparent distress - Head Head exam: Present: atraumatic, normocephalic, normal inspection - Eye Eye exam: Present: normal appearance, PERRL - ENT ENT exam: Present: normal exam, normal orophraynx, mucous membranes moist - Neck Neck exam: Present: normal inspection, full ROM. Absent: tenderness, meningismus, lymphadenopathy, thyromegaly - Respiratory Respiratory exam: Present: normal lung sounds bilaterally, wheezes, rhonchi, dec reased breath sounds, prolonged expiratory. Absent: rales, stridor - Cardiovascular Cardiovascular Exam: Present: regular rate, normal rhythm, normal heart sounds - GI/Abdominal GI/Abdominal exam: Present: soft, normal bowel sounds. Absent: distended, tenderness, guarding, rebound, rigid, organomegaly, mass, bruit, pulsatile mass, hernia - Extremities Exam Extremities exam: Present: normal inspection, full ROM, normal capillary refill. Absent: tenderness, pedal edema, joint swelling, calf tenderness - Back Exam Back exam: Present: normal inspection, full ROM. Absent: CVA tenderness (R), CVA tenderness (L), muscle spasm, paraspinal tenderness, vertebral tenderness - Neurological Exam Neurological exam: Present: alert, oriented X3, CN II-XII intact, normal gait, reflexes normal - Psychiatric Psychiatric exam: Present: normal mood - Skin Skin exam: Present: warm, intact, normal color ED Course Vital Signs 02/28/19 02/28/19 02/28/19 16:29 16:48 17:04 Temperature 98.4 F Pulse Rate 96 H 92 H Respiratory 20 16 25 H Rate Blood Pressure Blood Pressure 129/68 [Right] O2 Sat by Pulse 92 95 96 Oximetry 02/28/19 02/28/19 02/28/19 17:15 17:30 17:45 Temperature Pulse Rate 88 86 86 Respiratory 34 H 33 H 26 H Rate Blood Pressure 132/68 144/69 147/69 Blood Pressure [Right] O2 Sat by Pulse 98 98 99 Oximetry 02/28/19 02/28/19 02/28/19 18:00 18:15 18:30 Temperature Pulse Rate 86 86 86 Respiratory 27 H 20 20 Rate Blood Pressure 143/70 142/71 142/69 Blood Pressure [Right] O2 Sat by Pulse 97 97 95 Oximetry 02/28/19 02/28/19 02/28/19 18:45 19:00 19:04 Temperature Pulse Rate 95 H 91 H 92 H Respiratory 28 H 31 H 33 H Rate Blood Pressure 147/72 144/73 147/72 Blood Pressure [Right] O2 Sat by Pulse 55 L 80 L 83 L Oximetry 02/28/19 19:10 Temperature 97.9 F Pulse Rate 90 Respiratory 26 H Rate Blood Pressure Blood Pressure 144/73 [Right] O2 Sat by Pulse 94 Oximetry ED Medical Decision Making - Lab Data Result diagrams: 02/28/19 17:03 02/28/19 17:10 - EKG Data -: EKG Interpreted by Pr EKG shows normal: sinus rhythm Rate: normal - EKG Data Interpretation: no acute changes - Radiology Data Radiology results: report reviewed - Medical Decision Making Patient is 63 years old female with history of hypertension and COPD. Patient presented to the ER complaining of shortness of breath, cough productive for the last 3 days. Patient stated that she was recently discharged from the hospital for the same symptoms. Patient denied any fever or chills. No chest pain. Patient is alert oriented 3. Patient is started on BiPAP. ABG show respiratory acidosis with a PCO2 of 130. I discussed the patient is Dr. Dang, he agreed to admit the patient to medical service. Critical Care Time: Yes Critical care time in (mins) excluding proc time.: 30 Critical care attestation.: If time is entered above; I have spent that time in minutes in the direct care of this critically ill patient, excluding procedure time. ED Disposition Clinical Impression: COPD exacerbation, Shortness of breath, Acute and chronic respiratory failure with hypercapnia Disposition: OP ADMIT IP TO THIS HOSP Is pt being admited?: Yes Condition: Stable Instructions: Chronic Bronchitis (ED) Referrals: PEPE QUIROZ [Other] - 3-5 Days
[2019-02-28 17:22] LABS: Basophils % (Auto) 0.1 % (0.0-1.8); Eosinophils % (Auto) 0.5 % (0.0-4.3); Lymphocytes # (Auto) 1.4 K/mm3 (1.2-5.4); Lymphocytes % (Auto) 16.9 % (13.4-35.0); Mean Corpuscular HGB Conc 31 % (30-34); Mean Corpuscular Volume 104 fl (79-97); Monocytes # (Auto) 0.6 K/mm3 (0.0-0.8); Monocytes % (Auto) 6.9 % (0.0-7.3); Platelet Count 223 K/mm3 (140-440); Red Cell Distribution Width 14.4 % (13.2-15.2)
[2019-02-28 17:27] LABS: Hematocrit 42.6 % (30.3-42.9); Hemoglobin 13.1 gm/dl (10.1-14.3)
[2019-02-28 17:47] LABS: BUN/Creatinine Ratio 37; Blood Urea Nitrogen 11 mg/dL (7-17); Calcium 9.2 mg/dL (8.4-10.2); Hemolysis Index 3
[2019-02-28] MEDS ORDERED: PROVENTIL IH ONE (17:55)
--- NOTE | 2019-02-28 19:00 | XRay Report ---
CHEST 1 VIEW INDICATION / CLINICAL INFORMATION: Dyspnea. COMPARISON: 02/12/2019 FINDINGS: SUPPORT DEVICES: None. HEART / MEDIASTINUM: No significant abnormality. LUNGS / PLEURA: Mild prominence of interstitial markings bilaterally is unchanged. No superimposed ac madisyn disease. No pneumothorax. ADDITIONAL FINDINGS: No significant additional findings. IMPRESSION: 1. No acute findings. Signer Name: Jamarcus Kim MD Signed: 02/28/2019 6:55 PM Workstation Name: [id number]
[2019-02-28] MEDS ORDERED: SODIUM CHLORIDE FLUSH SYRINGE 10 ML IV PRN (19:44)
[2019-02-28] MEDS ORDERED: ZOFRAN IV PRN (19:44)
[2019-02-28] MEDS ORDERED: PROVENTIL IH PRN (19:44)
--- NOTE | 2019-02-28 20:50 | History and Physical Report ---
History of Present Illness Date of examination: 02/28/19 Date of admission: 02/28/2019 Chief complaint: ANTHONY History of present illness: 63-year-old -Greek female who is a former smoker with history of anxiety, hypertension, COPD, and chronic hypoxic respiratory failure who presents to [facility] ED with complaints of shortness of breath and productive cough. Pt states that her symptoms began approximately 3 days ago. She started experiencing increased shortness of breath despite increasing her supplemental oxygen from 2L to 3L continuously. Pt also complains of clear productive cough for the past 3 days. Says that she attempted to use her nebulizer treatment with no relief. Review of medical records shows that this is patient's fifth admission for the year. Her most recent admission was approximately 3 weeks ago for similar complaints. Denies; n/v/d, fever, chest pain, headache, or recent sick contact Past History Past Medical History: COPD (on home o2; Asthma), hypertension, other (anxiety, hx intubation) Past Surgical History: No surgical history Social history: other (former smoker) Medications and Allergies Allergies Allergy/AdvReac Type Severity Reaction Status Date / Time peanut Allergy Angioedema Verified 12/03/18 04:44 ipratropium bromide AdvReac Shortness Verified 12/03/18 04:44 [From Atrovent] of Breath Shellfish Allergy Unknown Uncoded 01/15/18 14:25 Home Medications Medication Instructions Recorded Confirmed Last Taken Type Carvedilol [Coreg] 6.25 mg PO BID #60 tablet 11/30/17 02/28/19 01/29/19 Rx Lisinopril [Zestril TAB] 5 mg PO QDAY #30 tablet 11/30/17 02/28/19 01/29/19 Rx Montelukast [Singulair] 10 mg PO QHS #30 tablet 02/20/18 02/28/19 01/29/19 Rx Albuterol Sulfate [Ventolin HFA] 2 puff IH Q4H PRN #1 hfa.aer.ad 07/26/18 02/28/19 01/30/19 Rx QUEtiapine [SEROquel] 50 mg PO QHS #30 tablet 07/26/18 02/28/19 01/29/19 Rx amLODIPine [Norvasc] 10 mg PO QDAY #30 tablet 07/26/18 02/28/19 01/29/19 Rx hydrALAZINE [Apresoline TAB] 25 mg PO Q8HR #90 tablet 07/26/18 02/28/19 01/29/19 Rx ALPRAZolam 0.25 mg PO BID 12/03/18 02/28/19 01/29/19 History Arformoterol Nebu [Brovana Nebu] 15 mcg IH Q12HRT #30 ml 02/02/19 02/28/19 Unknown Rx Budesonide [Pulmicort Respules] 0.5 mg IH Q12HRT #30 nebu 02/02/19 02/28/19 Unknown Rx Prednisone [predniSONE 10 mg 10 mg PO .TAPER #1 tab.ds.pk 02/14/19 02/28/19 Unknown Rx (6-Day Pack, 21 Tabs)] Active Meds: Active Medications Acetaminophen (Tylenol) 650 mg PO Q4H PRN PRN Reason: Pain MILD(1-3)/Fever >100.5/PÉREZ Albuterol (Proventil) 2.5 mg IH Q3HRT PRN PRN Reason: Shortness Of Breath Alprazolam (Xanax) 0.25 mg PO BID SE[facility]STIAN Amlodipine Besylate (Norvasc) 10 mg PO QDAY [facility] Budesonide (Pulmicort) 0.5 mg IH Q12HRT [facility]BASTIAN Carvedilol (Coreg) 6.25 mg PO BID SEBASTIAN Docusate Sodium (Colace) 100 mg PO BID SEBASTIAN Enoxaparin Sodium (Lovenox) 40 mg SUB-Q QDAY [facility] Guaifenesin (Mucinex Er) 600 mg PO BID SEBASTIAN Hydralazine HCl (Apresoline) 25 mg PO Q8HR SEBASTIAN Lisinopril (Zestril) 5 mg PO QDAY [facility] Methylprednisolone Sodium Succinate (Solu-Medrol) 80 mg IV Q8H SEBASTIAN Montelukast Sodium (Singulair) 10 mg PO QHS [facility]STIAN Ondansetron HCl (Zofran) 4 mg IV Q8H PRN PRN Reason: Nausea And Vomiting Quetiapine Fumarate (Seroquel) 50 mg PO QHS [facility] Sodium Chloride (Sodium Chloride Flush Syringe 10 Ml) 10 ml IV BID [facility] Sodium Chloride (Sodium Chloride Flush Syringe 10 Ml) 10 ml IV PRN PRN PRN Reason: LINE FLUSH Review of Systems All systems: negative Respiratory: cough, shortness of breath, dyspnea on exertion, wheezing Exam - Physical Exam Narrative exam: Physical exam General appearance: Present: Mild discomfort, drowsy, oriented 3,, middle-age, well-developed, adult female - EENT Eyes: Present: PERRL, EOM intact ENT: hearing intact, normal dentition - Neck Neck: Present: supple, normal ROM - Respiratory Respiratory effort: Labored on BiPaP Respiratory: Wheezing throughout - Cardiovascular Heart rate: 90 (bpm) Rhythm: SR Heart Sounds: Present: S1 & S2. Absent: rub, click - Extremities Extremities: no ischemia, pulses intact, - Peripheral Assessment Peripheral Pulses: within normal limits - Abdominal General gastrointestinal: soft, non-tender, normal bowel sounds - Integumentary Integumentary: Present: warm, dry, - Musculoskeletal Musculoskeletal: generalized weakness,able to move extremities x4 -Neurological Neurological: CN II-XII grossly intact - Psychiatric Psychiatric: cooperative - Constitutional Vitals: Temp Pulse Resp BP Pulse Ox 97.9 F 83 15 119/65 97 02/28/19 19:10 02/28/19 20:00 02/28/19 20:00 02/28/19 20:00 02/28/19 20:00 Results - Labs CBC & Chem 7: 02/28/19 17:03 02/28/19 17:10 Labs: Laboratory Last Values WBC 8.2 K/mm3 (4.5-11.0) 02/28/19 17:03 RBC 4.10 M/mm3 (3.65-5.03) 02/28/19 17:03 Hgb 13.1 gm/dl (10.1-14.3) 02/28/19 17:03 Hct 42.6 % (30.3-42.9) 02/28/19 17:03 MCV 104 fl (79-97) H 02/28/19 17:03 MCH 32 pg (28-32) 02/28/19 17:03 MCHC 31 % (30-34) 02/28/19 17:03 RDW 14.4 % (13.2-15.2) 02/28/19 17:03 Plt Count 223 K/mm3 (140-440) 02/28/19 17:03 Lymph % (Auto) 16.9 % (13.4-35.0) 02/28/19 17:03 [place] % (Auto) 6.9 % (0.0-7.3) 02/28/19 17:03 Eos % (Auto) 0.5 % (0.0-4.3) 02/28/19 17:03 Baso % (Auto) 0.1 % (0.0-1.8) 02/28/19 17:03 Lymph # 1.4 K/mm3 (1.2-5.4) 02/28/19 17:03 [place] # 0.6 K/mm3 (0.0-0.8) 02/28/19 17:03 Eos # 0.0 K/mm3 (0.0-0.4) 02/28/19 17:03 Baso # 0.0 K/mm3 (0.0-0.1) 02/28/19 17:03 Seg Neutrophils % 75.6 % (40.0-70.0) H 02/28/19 17:03 Seg Neutrophils # 6.2 K/mm3 (1.8-7.7) 02/28/19 17:03 POC ABG pH 7.174 (7.35-7.45) L 02/28/19 18:53 POC ABG pO2 69 (80-105) L 02/28/19 18:53 32 % 02/28/19 18:53 Sodium 146 mmol/L (137-145) H 02/28/19 17:10 Potassium 4.1 mmol/L (3.6-5.0) 02/28/19 17:10 Chloride 94.8 mmol/L (98-107) L 02/28/19 17:10 Carbon Dioxide 49 mmol/L (22-30) H* 02/28/19 17:10 6 mmol/L 02/28/19 17:10 BUN 11 mg/dL (7-17) 02/28/19 17:10 0.3 mg/dL (0.7-1.2) L 02/28/19 17:10 Estimated GFR > 60 ml/min 02/28/19 17:10 37 % 02/28/19 17:10 Glucose 97 mg/dL (65-100) 02/28/19 17:10 Calcium 9.2 mg/dL (8.4-10.2) 02/28/19 17:10 < 0.010 ng/mL (0.00-0.029) 02/28/19 19:42 NT-Pro-B Natriuret Pep 54.75 pg/mL (0-900) 02/28/19 17:03 - Imaging and Cardiology Imaging and Cardiology: CXR: FINDINGS: SUPPORT DEVICES: None. HEART / MEDIASTINUM: No significant abnormality. LUNGS / PLEURA: Mild prominence of interstitial markings jace aterally is unchanged. No superimposed acute disease. No pneumothorax. ADDITIONAL FINDINGS: No significant additional findings. IMPRESSION 1. No acute findings. Assessment and Plan Assessment and plan: 63-year-old -Greek female was a former smoker with history of anxiety, hypertension, COPD, and chronic respiratory failure on home oxygen who presents to [facility] ED with complaints of shortness of breath and productive cough for the past 3 days. Exacerbation COPD -Continue supportive care -Nebulizer treatments, twice a day Pulmicort -IV systemic steroids -Mucinex -Pulmonary consulted Acute on chronic hypoxic respiratory failure with hypercapnia -Baseline home oxygen requirement of 2-3 L continuously -Initial pH 7.14/130/69 -Currently on BiPAP -Monitor saturations -Monitor CO2 -Continue supplemental oxygen wean as tolerated -During previous admission it was suggested patient may benefit from NIV to help with improve quality of life and prevent future hospital re-admission -Will follow up with case management Hypertension -Continue to monitor BP -Resume home antihypertensive meds to optimize BP Anxiety -Continue Xanax DVT PPX -on Lovenox -SCD's Advance Directives: No VTE prophylaxis?: Chemical Plan of care discussed with patient/family: Yes
[2019-02-28] MEDS ORDERED: ALPRAZOLAM 0.25 MG PO SCH (22:00)
[2019-02-28 22:39] LABS: ABG Base Excess 16.6 mmol/L (-2.0-3.0); ABG HCO3 49.8 mmol/L (20.0-26.0); ABG Methemoglobin 0.7 % (0.0-1.5); ABG Oxygen Saturation 94.5 % (95.0-99.0); ABG PCO2 122.8 mm Hg; ABG PH 7.226 pH Units (7.350-7.450); ABG PO2 71.7 mm Hg (80.0-90.0)
[2019-02-28] MEDS: SINGULAIR PO SCH (23:43)
[2019-02-28] MEDS: MUCINEX ER PO SCH (23:43)
[2019-02-28] MEDS: COLACE PO SCH (23:44)
[2019-02-28] MEDS: SODIUM CHLORIDE FLUSH SYRINGE 10 ML IV SCH (23:44)
[2019-02-28] MEDS: APRESOLINE PO SCH (23:50)
[2019-02-28] MEDS: COREG PO SCH (23:51)
[2019-02-28] MEDS: XANAX PO SCH (23:52)
[2019-03-01] MEDS: SOLU-Medrol IV SCH ×3 (00:48→16:46)
[2019-03-01 04:59] LABS: Hematocrit 42.7 % (30.3-42.9); Hemoglobin 13.3 gm/dl (10.1-14.3); Mean Corpuscular HGB Conc 31 % (30-34); Mean Corpuscular Volume 105 fl (79-97); Platelet Count 221 K/mm3 (140-440); Red Blood Count 4.06 M/mm3 (3.65-5.03); Red Cell Distribution Width 14.9 % (13.2-15.2)
[2019-03-01 05:24] LABS: BUN/Creatinine Ratio 48; Blood Urea Nitrogen 19 mg/dL (7-17); Calcium 9.5 mg/dL (8.4-10.2); Hemolysis Index 15
[2019-03-01] MEDS: APRESOLINE PO SCH ×3 (05:27→22:06)
[2019-03-01] MEDS: TYLENOL PO PRN ×3 (05:28→22:09)
[2019-03-01 06:01] LABS: Basophils % (Manual) 0 % (0.0-1.8); Eosinophils % (Manual) 0 % (0.0-4.3); Monocytes % (Manual) 0 % (0.0-7.3); Total Cells Counted 100
[2019-03-01 06:02] LABS: Stomatocytes 2+
[2019-03-01 06:03] LABS: Macrocytosis Rare
[2019-03-01 06:04] LABS: Platelet Estimate Consistent w Auto
[2019-03-01] MEDS: PULMICORT IH SCH ×3 (06:13→19:21)
--- NOTE | 2019-03-01 07:57 | Progress Note ---
Assessment and Plan Assessment and plan: Patient is a 63 yo woman with a history of anxiety, chronic respiratory failure on 3L on home O2 due to end stage COPD, CHF EF 40-45%, trace AR who presented with SOB and productive cough. Acute Exacerbation COPD -Continue supportive care -Nebulizer treatments around the clock -LABA/ICS -IV systemic steroids -Abx started -Mucinex -Pulmonary consulted Acute on chronic hypoxic respiratory failure with hypercapnia -Baseline home oxygen requirement of 2-3 L continuously -Initial pH 7.14/130/69 -Currently on BiPAP -Monitor saturations -Monitor CO2 -Continue supplemental oxygen wean as tolerated -During previous admission it was suggested patient may benefit from NIV to help with improve quality of life and prevent future hospital re-admission -Will follow up with case management Hypertension -Continue to monitor BP -Resume home antihypertensive meds to optimize BP Hypernatremia -treat with free water Anxiety -Continue Xanax DVT PPX -on Lovenox -SCD's CCT 34 minutes History Interval history: Patient was seen and examined. Follow-up on current diagnosis. No overnight events reported to me. Patient denies any chest pain, shortness breath, nausea/vomiting or severe headaches. Imaging, nursing note, chart, labs and old chart reviewed. Discussed with patient. Hospitalist Physical - Physical exam Narrative exam: Gen: thin frail, ill appearing, Awake, Alert, Orientated x 3, on BIPAP HEENT: NCAT, EOMI, PERRL, OP Clear Neck: supple, no adenopathy, no thyromegaly, no JVD CVS/Heart: RRR, normal S1S2, pulses present bilaterally Chest/Lungs: Diminished BS bilaterally, Symmetrical chest expansion, good air entry bilaterally GI/Abdomen: soft, NTND, good bowel sounds, no guarding or rebound /Bladder: no suprapubic tenderness, no CVA or paraspinal tenderness Extermity/Skin: no c/c/e, no obvious rash MSK: FROM x 4 Neuro: CN 2-12 grossly intact, no new focal deficits Psych: calm - Constitutional Vitals: Temp Pulse Resp BP Pulse Ox 97.5 F L 81 30 H 109/60 99 03/01/19 05:34 03/01/19 07:31 03/01/19 07:31 03/01/19 07:31 03/01/19 07:31 Results - Labs CBC & Chem 7: 03/01/19 04:20 03/01/19 04:20 Labs: Laboratory Last Values WBC 5.4 K/mm3 (4.5-11.0) 03/01/19 04:20 RBC 4.06 M/mm3 (3.65-5.03) 03/01/19 04:20 Hgb 13.3 gm/dl (10.1-14.3) 03/01/19 04:20 Hct 42.7 % (30.3-42.9) 03/01/19 04:20 MCV 105 fl (79-97) H 03/01/19 04:20 MCH 33 pg (28-32) H 03/01/19 04:20 MCHC 31 % (30-34) 03/01/19 04:20 RDW 14.9 % (13.2-15.2) 03/01/19 04:20 Plt Count 221 K/mm3 (140-440) 03/01/19 04:20 Lymph % (Auto) 16.9 % (13.4-35.0) 02/28/19 17:03 [place] % (Auto) 6.9 % (0.0-7.3) 02/28/19 17:03 Eos % (Auto) 0.5 % (0.0-4.3) 02/28/19 17:03 Baso % (Auto) 0.1 % (0.0-1.8) 02/28/19 17:03 Lymph # 1.4 K/mm3 (1.2-5.4) 02/28/19 17:03 [place] # 0.6 K/mm3 (0.0-0.8) 02/28/19 17:03 Eos # 0.0 K/mm3 (0.0-0.4) 02/28/19 17:03 Baso # 0.0 K/mm3 (0.0-0.1) 02/28/19 17:03 Add Manual Diff Complete 03/01/19 04:20 Total Counted 100 03/01/19 04:20 Seg Neutrophils % Argon Tester 03/01/19 04:20 Seg Neuts % (Manual) 96.0 % (40.0-70.0) H 03/01/19 04:20 0 % 03/01/19 04:20 4.0 % (13.4-35.0) L 03/01/19 04:20 Reactive Lymphs % (Man) 0 % 03/01/19 04:20 0 % (0.0-7.3) 03/01/19 04:20 0 % (0.0-4.3) 03/01/19 04:20 0 % (0.0-1.8) 03/01/19 04:20 0 % 03/01/19 04:20 0 % 03/01/19 04:20 0 % 03/01/19 04:20 0 % 03/01/19 04:20 Nucleated RBC % Not Reportable 03/01/19 04:20 Seg Neutrophils # 6.2 K/mm3 (1.8-7.7) 02/28/19 17:03 Seg Neutrophils # Man 5.2 K/mm3 (1.8-7.7) 03/01/19 04:20 Band Neutrophils # 0.0 K/mm3 03/01/19 04:20 0.2 K/mm3 (1.2-5.4) L 03/01/19 04:20 Abs React Lymphs (Man) 0.0 K/mm3 03/01/19 04:20 0.0 K/mm3 (0.0-0.8) 03/01/19 04:20 0.0 K/mm3 (0.0-0.4) 03/01/19 04:20 0.0 K/mm3 (0.0-0.1) 03/01/19 04:20 0.0 K/mm3 03/01/19 04:20 0.0 K/mm3 03/01/19 04:20 0.0 K/mm3 03/01/19 04:20 Blast Cells # 0.0 K/mm3 03/01/19 04:20 WBC Morphology Not Reportable 03/01/19 04:20 Hypersegmented Neuts Not Reportable 03/01/19 04:20 Hyposegmented Neuts Not Reportable 03/01/19 04:20 Hypogranular Neuts Not Reportable 03/01/19 04:20 Not Reportable 03/01/19 04:20 Not Reportable 03/01/19 04:20 Not Reportable 03/01/19 04:20 Not Reportable 03/01/19 04:20 Not Reportable 03/01/19 04:20 Not Reportable 03/01/19 04:20 Consistent w auto 03/01/19 04:20 Not Reportable 03/01/19 04:20 Plt Clumps, EDTA Not Reportable 03/01/19 04:20 Not Reportable 03/01/19 04:20 Not Reportable 03/01/19 04:20 Not Reportable 03/01/19 04:20 Plt Morphology Comment Not Reportable 03/01/19 04:20 RBC Morphology Not Reportable 03/01/19 04:20 Dimorphic RBCs Not Reportable 03/01/19 04:20 Not Reportable 03/01/19 04:20 Not Reportable 03/01/19 04:20 Not Reportable 03/01/19 04:20 Not Reportable 03/01/19 04:20 Not Reportable 03/01/19 04:20 Rare 03/01/19 04:20 Not Reportable 03/01/19 04:20 Not Reportable 03/01/19 04:20 Not Reportable 03/01/19 04:20 Not Reportable 03/01/19 04:20 Not Reportable 03/01/19 04:20 Not Reportable 03/01/19 04:20 2+ 03/01/19 04:20 Not Reportable 03/01/19 04:20 Not Reportable 03/01/19 04:20 Not Reportable 03/01/19 04:20 Not Reportable 03/01/19 04:20 Not Reportable 03/01/19 04:20 Not Reportable 03/01/19 04:20 Not Reportable 03/01/19 04:20 Acanthocytes (Spur) Not Reportable 03/01/19 04:20 Rouleaux Not Reportable 03/01/19 04:20 Not Reportable 03/01/19 04:20 Not Reportable 03/01/19 04:20 Not Reportable 03/01/19 04:20 Not Reportable 03/01/19 04:20 Hem Pathologist Commnt No 03/01/19 04:20 POC ABG pH 7.174 (7.35-7.45) L 02/28/19 18:53 ABG pH 7.226 pH Units (7.350-7.450) L 02/28/19 22:00 ABG pCO2 122.8 mm Hg 02/28/19 22:00 POC ABG pO2 69 (80-105) L 02/28/19 18:53 ABG pO2 71.7 mm Hg (80.0-90.0) L 02/28/19 22:00 ABG HCO3 49.8 mmol/L (20.0-26.0) H 02/28/19 22:00 ABG O2 Saturation 94.5 % (95.0-99.0) L 02/28/19 22:00 ABG O2 Content 16.9 (0.0-44) 02/28/19 22:00 ABG Base Excess 16.6 mmol/L (-2.0-3.0) H 02/28/19 22:00 ABG Hemoglobin 13.2 gm/dl (12.0-16.0) 02/28/19 22:00 ABG Carboxyhemoglobin 3.0 % (0.0-5.0) 02/28/19 22:00 ABG Methemoglobin 0.7 % (0.0-1.5) 02/28/19 22:00 91.0 % (95.0-99.0) L 02/28/19 22:00 85 % 02/28/19 22:00 Sodium 147 mmol/L (137-145) H 03/01/19 04:20 Potassium 4.6 mmol/L (3.6-5.0) 03/01/19 04:20 Chloride 93.8 mmol/L (98-107) L 03/01/19 04:20 Carbon Dioxide 43 mmol/L (22-30) H* 03/01/19 04:20 15 mmol/L 03/01/19 04:20 BUN 19 mg/dL (7-17) H 03/01/19 04:20 0.4 mg/dL (0.7-1.2) L 03/01/19 04:20 Estimated GFR > 60 ml/min 03/01/19 04:20 48 % 03/01/19 04:20 Glucose 124 mg/dL (65-100) H 03/01/19 04:20 Calcium 9.5 mg/dL (8.4-10.2) 03/01/19 04:20 < 0.010 ng/mL (0.00-0.029) 02/28/19 19:42 NT-Pro-B Natriuret Pep 54.75 pg/mL (0-900) 02/28/19 17:03 Active Medications - Current Medications Current Medications: Generic Name Dose Route Start Last Admin Trade Name Freq PRN Reason Stop Dose Admin Acetaminophen 650 mg 02/28/19 19:44 03/01/19 05:28 Tylenol PO 650 mg Q4H PRN Administration Pain MILD(1-3)/Fever >100.5/PÉREZ Albuterol 2.5 mg 02/28/19 19:44 Proventil IH Q3HRT PRN Shortness Of Breath Alprazolam 0.25 mg 02/28/19 22:00 02/28/19 23:52 Xanax PO Not Given BID [facility] Amlodipine Besylate 10 mg 03/01/19 10:00 Norvasc PO QDAY [facility] Budesonide 0.5 mg 02/28/19 20:00 03/01/19 06:13 Pulmicort IH Not Given Q12HRT [facility] Carvedilol 6.25 mg 02/28/19 22:00 02/28/19 23:51 Coreg PO Not Given BID [facility] Docusate Sodium 100 mg 02/28/19 22:00 02/28/19 23:44 Colace PO 100 mg BID [facility] Administration Enoxaparin Sodium 40 mg 03/01/19 10:00 Lovenox SUB-Q QDAY [facility] Guaifenesin 600 mg 02/28/19 22:00 02/28/19 23:43 Mucinex Er PO 600 mg BID [facility] Administration Hydralazine HCl 25 mg 02/28/19 22:00 03/01/19 05:27 Apresoline PO 25 mg Q8HR SEBASTIAN Administration Lisinopril 5 mg 03/01/19 10:00 Zestril PO QDAY [facility] Methylprednisolone Sodium Succinate 80 mg 03/01/19 01:00 03/01/19 00:48 Solu-Medrol IV 80 mg Q8H SEBASTIAN Administration Montelukast Sodium 10 mg 02/28/19 22:00 02/28/19 23:43 Singulair PO 10 mg QHS [facility] Administration Ondansetron HCl 4 mg 02/28/19 19:44 Zofran IV Q8H PRN Nausea And Vomiting Quetiapine Fumarate 50 mg 02/28/19 22:00 02/28/19 23:51 Seroquel PO Not Given QHS SEBASTIAN Sodium Chloride 10 ml 02/28/19 22:00 02/28/19 23:44 Sodium Chloride Flush Syringe 10 Ml IV 10 ml BID SEBASTIAN Administration Sodium Chloride 10 ml 02/28/19 19:44 Sodium Chloride Flush Syringe 10 Ml IV PRN PRN LINE FLUSH
[2019-03-01] MEDS ORDERED: PROVENTIL IH PRN (08:24)
[2019-03-01] MEDS ORDERED: DUONEB *Not for PRN Use IH ONE (08:46)
[2019-03-01] MEDS: XANAX PO SCH ×2 (09:03→22:09)
[2019-03-01] MEDS: LOVENOX SUB-Q SCH (09:04)
[2019-03-01] MEDS: SODIUM CHLORIDE FLUSH SYRINGE 10 ML IV SCH ×2 (09:05→22:10)
[2019-03-01] MEDS: COREG PO SCH ×2 (09:06→22:07)
[2019-03-01] MEDS: ZESTRIL PO SCH (09:06)
[2019-03-01] MEDS: COLACE PO SCH ×2 (09:07→22:09)
[2019-03-01] MEDS: ROCEPHIN/NS 1 GM/50 ML 1 GM/50 ML BAG IV SCH (09:40)
[2019-03-01] MEDS: MUCINEX ER PO SCH ×2 (09:41→22:10)
[2019-03-01] MEDS: ZITHROMAX 500 MG in NACL 0.9% 250ML 250 ML IV SCH (09:59)
[2019-03-01] MEDS ORDERED: NORVASC PO SCH (10:00)
[2019-03-01] MEDS ORDERED: NACL 0.9% 500 ML 500 ML IV ONE (11:00)
[2019-03-01] MEDS: BROVANA NEBU IH SCH ×2 (18:13→19:21)
[2019-03-01] MEDS: DUONEB *Not for PRN Use IH SCH ×2 (18:14→19:21)
--- NOTE | 2019-03-01 19:34 | Consultation ---
History of Present Illness Consult date: 03/01/19 Reason for consult: dyspnea, cough, asthma, COPD History of present illness: PULMONARY AND CRITICAL CARE CONSULTATION DR. PRASAD THANK YOU FOR ASKING US TO PARTICIPATE IN THE CARE OF THIS PATIENT. 63-year-old -[place] female who is a former smoker with history of anxiety, hypertension, COPD, and chronic hypoxic respiratory failure who presents to [facility] ED with complaints of shortness of breath and productive cough. Pt states that her symptoms began approximately 3 days ago. She started experiencing increased shortness of breath despite increasing her supplemental oxygen from 2L to 3L continuously. Pt also complains of clear productive cough for the past 3 days. Says that she attempted to use her nebulizer treatment with no relief. 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 History of COPD and Hypertension. Patient allergic to Peanuts, Ipatropium, Shellfish. Patient worked as [employer]. Patient is , children one. ABG POC ABG pH 7.249 (7.35-7.45) L 03/01/19 16:31 ABG pH 7.226 pH Units (7.350-7.450) L 02/28/19 22:00 ABG pCO2 122.8 mm Hg 02/28/19 22:00 POC ABG pO2 103 (80-105) 03/01/19 16:31 ABG pO2 71.7 mm Hg (80.0-90.0) L 02/28/19 22:00 POC ABG HCO3 44.7 (22-26 mml/L) 03/01/19 16:31 POC ABG Total CO2 48 (23-27mmol/L) 03/01/19 16:31 POC ABG O2 Sat 96 03/01/19 16:31 ABG O2 Saturation 94.5 % (95.0-99.0) L 02/28/19 22:00 Patient presently resting on BIPAP 18/7, FIO2 30%. Repeating blood gases. Patient presently on I/V solumedrol, Aerosolized bronchodilators and I/v Antibiotics Zithromax and ceftriaxone. Patient is on S/C Lovenox . Recommend GI prophylaxis also. Past History Past Medical History: COPD (on home o2; Asthma), hypertension, other (anxiety, hx intubation) Past Surgical History: No surgical history Social history: other (former smoker) Medications and Allergies Allergies Allergy/AdvReac Type Severity Reaction Status Date / Time peanut Allergy Angioedema Verified 12/03/18 04:44 ipratropium bromide AdvReac Shortness Verified 12/03/18 04:44 [From Atrovent] of Breath Shellfish Allergy Unknown Uncoded 01/15/18 14:25 Home Medications Medication Instructions Recorded Confirmed Last Taken Type Carvedilol [Coreg] 6.25 mg PO BID #60 tablet 11/30/17 02/28/19 01/29/19 Rx Lisinopril [Zestril TAB] 5 mg PO QDAY #30 tablet 11/30/17 02/28/19 01/29/19 Rx Montelukast [Singulair] 10 mg PO QHS #30 tablet 02/20/18 02/28/19 01/29/19 Rx Albuterol Sulfate [Ventolin HFA] 2 puff IH Q4H PRN #1 hfa.aer.ad 07/26/18 0 02/28/19 01/30/19 Rx QUEtiapine [SEROquel] 50 mg PO QHS #30 tablet 07/26/18 02/28/19 01/29/19 Rx amLODIPine [Norvasc] 10 mg PO QDAY #30 tablet 07/26/18 02/28/19 01/29/19 Rx hydrALAZINE [Apresoline TAB] 25 mg PO Q8HR #90 tablet 07/26/18 02/28/19 01/29/19 Rx ALPRAZolam 0.25 mg PO BID 12/03/18 02/28/19 01/29/19 History Arformoterol Nebu [Brovana Nebu] 15 mcg IH Q12HRT #30 ml 02/02/19 02/28/19 Unknown Rx Budesonide [Pulmicort Respules] 0.5 mg IH Q12HRT #30 nebu 02/02/19 02/28/19 Unknown Rx Prednisone [predniSONE 10 mg 10 mg PO .TAPER #1 tab.ds.pk 02/14/19 02/28/19 Unknown Rx (6-Day Pack, 21 Tabs)] Active Meds: Active Medications Acetaminophen (Tylenol) 650 mg PO Q4H PRN PRN Reason: Pain MILD(1-3)/Fever >100.5/PÉREZ Last Admin: 09/11/19 17:53 Dose: 650 mg Documented by: Albuterol (Proventil) 2.5 mg IH Q4H PRN PRN Reason: Shortness Of Breath Albuterol/Ipratropium (Duoneb *Not For Prn Use*) 1 ampul IH TIDRT [facility] Last Admin: 03/01/19 19:21 Dose: 1 ampul Documented by: Alprazolam (Xanax) 0.25 mg PO BID [facility] Last Admin: 03/01/19 09:03 Dose: 0.25 mg Documented by: Arformoterol Tartrate (Brovana Nebu) 15 mcg IH Q12HRT [facility] Last Admin: 03/01/19 19:21 Dose: 15 mcg Documented by: Budesonide (Pulmicort) 0.5 mg IH Q12HRT [facility] Last Admin: 03/01/19 19:21 Dose: 0.5 mg Documented by: Carvedilol (Coreg) 3.125 mg PO BID [facility] Docusate Sodium (Colace) 100 mg PO BID [facility] Last Admin: 03/01/19 09:07 Dose: 100 mg Documented by: Enoxaparin Sodium (Lovenox) 40 mg SUB-Q QDAY [facility] Last Admin: 03/01/19 09:04 Dose: 40 mg Documented by: Guaifenesin (Mucinex Er) 600 mg PO BID [facility] Last Admin: 03/01/19 09:41 Dose: 600 mg Documented by: Hydralazine HCl (Apresoline) 25 mg PO Q8HR [facility] Last Admin: 03/01/19 13:15 Dose: Not Given Documented by: Ceftriaxone Sodium (Rocephin/Ns 1 Gm/50 Ml) 1 gm in 50 mls @ 100 mls/hr IV DAILY@0800 [facility]; Protocol Last Admin: 03/01/19 09:40 Dose: 100 mls/hr Documented by: Azithromycin 500 mg/ Sodium (Chloride) 250 mls @ 250 mls/hr IV Q24HR [facility]; Protocol Last Admin: 03/01/19 09:59 Dose: 250 mls/hr Documented by: Lisinopril (Zestril) 5 mg PO QDAY [facility] Last Admin: 03/01/19 09:06 Dose: 5 mg Documented by: Methylprednisolone Sodium Succinate (Solu-Medrol) 80 mg IV Q8H [facility] Last Admin: 03/01/19 16:46 Dose: 80 mg Documented by: Montelukast Sodium (Singulair) 10 mg PO QHS [facility] Last Admin: 02/28/19 23:43 Dose: 10 mg Documented by: Ondansetron HCl (Zofran) 4 mg IV Q8H PRN PRN Reason: Nausea And Vomiting Quetiapine Fumarate (Seroquel) 50 mg PO QHS [facility] Last Admin: 02/28/19 23:51 Dose: Not Given Documented by: Sodium Chloride (Sodium Chloride Flush Syringe 10 Ml) 10 ml IV BID [facility] Last Admin: 03/01/19 09:05 Dose: 10 ml Documented by: Sodium Chloride (Sodium Chloride Flush Syringe 10 Ml) 10 ml IV PRN PRN PRN Reason: LINE FLUSH Review of Systems All systems: negative Physical Examination Vital signs: Vital Signs Temp Pulse Resp BP Pulse Ox 98.4 F 96 H 20 129/68 92 02/28/19 16:29 02/28/19 16:29 02/28/19 16:29 02/28/19 16:29 02/28/19 16:29 General appearance: asleep, other (Resting on BIPAP. No acute respiratory distress.) Eyes: non-icteric ENT: oropharynx moist Neck: supple, no JVD Ascultation: Bilateral: diminished breath sounds, other (Prolonged expiratory phase.) Cardiovascular: regular rate and rhythm Gastrointestinal: normoactive bowel sounds, soft, non-tender Integumentary: normal Extremities: no cyanosis, no edema Musculoskeletal: no deformities normal mental status, non-focal exam, pupils equal and round other (Sleeping at this time.) Results - Laboratory Findings CBC and BMP: 03/01/19 04:20 03/01/19 04:20 ABG POC ABG pH 7.249 (7.35-7.45) L 03/01/19 16:31 ABG pH 7.226 pH Units (7.350-7.450) L 02/28/19 22:00 ABG pCO2 122.8 mm Hg 02/28/19 22:00 POC ABG pO2 103 (80-105) 03/01/19 16:31 ABG pO2 71.7 mm Hg (80.0-90.0) L 02/28/19 22:00 POC ABG HCO3 44.7 (22-26 mml/L) 03/01/19 16:31 POC ABG Total CO2 48 (23-27mmol/L) 03/01/19 16:31 POC ABG O2 Sat 96 03/01/19 16:31 ABG O2 Saturation 94.5 % (95.0-99.0) L 02/28/19 22:00 Abnormal lab findings: Abnormal Labs 02/28/19 02/28/19 02/28/19 17:03 17:10 18:53 MCV 104 H MCH Seg Neutrophils % 75.6 H Seg Neuts % (Manual) Lymphocytes % (Manual) Lymphocytes # (Manual) POC ABG pH 7.174 L ABG pH POC ABG pO2 69 L ABG pO2 ABG HCO3 ABG O2 Saturation ABG Base Excess Oxyhemoglobin Sodium 146 H Chloride 94.8 L Carbon Dioxide 49 H* BUN Creatinine 0.3 L Glucose 02/28/19 03/01/19 03/01/19 22:00 04:20 04:20 MCV 105 H MCH 33 H Seg Neutrophils % Seg Neuts % (Manual) 96.0 H Lymphocytes % (Manual) 4.0 L Lymphocytes # (Manual) 0.2 L POC ABG pH ABG pH 7.226 L POC ABG pO2 ABG pO2 71.7 L ABG HCO3 49.8 H ABG O2 Saturation 94.5 L ABG Base Excess 16.6 H Oxyhemoglobin 91.0 L Sodium 147 H Chloride 93.8 L Carbon Dioxide 43 H* BUN 19 H Creatinine 0.4 L Glucose 124 H 03/01/19 03/01/19 08:36 16:31 MCV MCH Seg Neutrophils % Seg Neuts % (Manual) Lymphocytes % (Manual) Lymphocytes # (Manual) POC ABG pH 7.261 L 7.249 L ABG pH POC ABG pO2 108 H ABG pO2 ABG HCO3 ABG O2 Saturation ABG Base Excess Oxyhemoglobin Sodium Chloride Carbon Dioxide BUN Creatinine Glucose - Diagnostic Findings Chest x-ray: report reviewed (No acute findings.), image reviewed Assessment and Plan 63-year-old -Syrian female who is a former smoker with history of anxiety, hypertension, COPD, and chronic hypoxic respiratory failure who presents to [facility] ED with complaints of shortness of breath and productive cough. Pt states that her symptoms began approximately 3 days ago. She started experiencing increased shortness of breath despite increasing her supplemental oxygen from 2L to 3L continuously. Pt also complains of clear productive cough for the past 3 days. Says that she attempted to use her nebulizer treatment with no relief. 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 History of COPD and Hypertension. Patient allergic to Peanuts, Ipatropium, Shellfish. Patient worked as [employer]. Patient is , children one. ABG POC ABG pH 7.249 (7.35-7.45) L 03/01/19 16:31 ABG pH 7.226 pH Units (7.350-7.450) L 02/28/19 22:00 ABG pCO2 122.8 mm Hg 02/28/19 22:00 POC ABG pO2 103 (80-105) 03/01/19 16:31 ABG pO2 71.7 mm Hg (80.0-90.0) L 02/28/19 22:00 POC ABG HCO3 44.7 (22-26 mml/L) 03/01/19 16:31 POC ABG Total CO2 48 (23-27mmol/L) 03/01/19 16:31 POC ABG O2 Sat 96 03/01/19 16:31 ABG O2 Saturation 94.5 % (95.0-99.0) L 02/28/19 22:00 Patient presently resting on BIPAP 18/7, FIO2 30%. Repeating blood gases. Patient presently on I/V solumedrol, Aerosolized bronchodilators and I/v Antibiotics Zithromax and ceftriaxone. Patient is on S/C Lovenox . Recommend GI prophylaxis also. - Patient Problems (1) Acute and chronic respiratory failure with hypercapnia Current Visit: Yes Status: Acute Plan to address problem: Continue BIPAP Continue albuterol/atrovent aerosol treatments q 6 hours. Continue I/V solumedrol Continue Zithromax and ceftriaxone Continue S/C Lovenox. Recommend GI prophylaxis. (2) COPD exacerbation Current Visit: Yes Status: Acute Plan to address problem: Continue BIPAP Continue albuterol/atrovent aerosol treatments q 6 hours. Continue I/V solumedrol Continue Zithromax and ceftriaxone Continue S/C Lovenox. Recommend GI prophylaxis PFTs as out patient. (3) Acute bronchitis Current Visit: No Status: Acute Plan to address problem: Patient is on ceftriaxone and Zithromax. (4) GERD (gastroesophageal reflux disease) Current Visit: No Status: Acute Qualifiers: Esophagitis presence: without esophagitis Qualified Code(s): K21.9 - Gastro-esophageal reflux disease without esophagitis Plan to address problem: Recommend PPIs. (5) HTN (hypertension) Current Visit: No Status: Acute Qualifiers: Hypertension type: essential hypertension Qualified Code(s): I10 - Essential (primary) hypertension Plan to address problem: Management as per primary care.
[2019-03-01] MEDS ORDERED: COREG PO SCH (22:00)
[2019-03-01] MEDS: SINGULAIR PO SCH (22:10)
[2019-03-02] MEDS: SOLU-Medrol IV SCH ×2 (02:15→16:20)
--- NOTE | 2019-03-02 02:18 | Event Note ---
Date: 03/02/19 Nurse reviewed bus monitor and saw what he describes possible ST elevation. EKG was performed which was essentially unchanged when compared to EKG 02/28. Serial troponins ordered, troponin negative times one, we'll continue to trend. Patient denies active chest pain and is resting comfortably in bed.
[2019-03-02 05:06] LABS: Hematocrit 36.2 % (30.3-42.9); Hemoglobin 11.3 gm/dl (10.1-14.3); Mean Corpuscular HGB Conc 31 % (30-34); Mean Corpuscular Volume 101 fl (79-97); Platelet Count 199 K/mm3 (140-440); Red Blood Count 3.58 M/mm3 (3.65-5.03)
[2019-03-02 05:21] LABS: BUN/Creatinine Ratio 51; Blood Urea Nitrogen 36 mg/dL (7-17); Calcium 8.9 mg/dL (8.4-10.2); Hemolysis Index 3
[2019-03-02] MEDS: APRESOLINE PO SCH ×2 (06:24→15:05)
[2019-03-02] MEDS: BROVANA NEBU IH SCH (07:22)
[2019-03-02] MEDS: PULMICORT IH SCH ×2 (07:22→20:44)
[2019-03-02] MEDS: ROCEPHIN/NS 1 GM/50 ML 1 GM/50 ML BAG IV SCH (10:10)
[2019-03-02] MEDS: COREG PO SCH (10:11)
[2019-03-02] MEDS: COLACE PO SCH (10:11)
[2019-03-02] MEDS: LOVENOX SUB-Q SCH (10:12)
[2019-03-02] MEDS: MUCINEX ER PO SCH (10:12)
[2019-03-02] MEDS: ZESTRIL PO SCH (10:12)
[2019-03-02] MEDS: SODIUM CHLORIDE FLUSH SYRINGE 10 ML IV SCH (10:12)
[2019-03-02] MEDS: XANAX PO SCH (10:15)
[2019-03-02] MEDS: TYLENOL PO PRN (10:16)
[2019-03-02] MEDS: ZITHROMAX 500 MG in NACL 0.9% 250ML 250 ML IV SCH (10:16)
--- NOTE | 2019-03-02 10:51 | Event Note ---
Date: 03/02/19 63-year-old -[place]vian female who is a former smoker with history of anxiety, hypertension, COPD, and chronic hypoxic respiratory failure who presents to [facility] with complaints of shortness of breath and productive cough. Pt states that her symptoms began approximately 3 days ago. She started experiencing increased shortness of breath despite increasing her supplemental oxygen from 2L to 3L continuously. Pt also complains of clear productive cough for the past 3 days. Says that she attempted to use her nebulizer treatment with no relief. 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 History of COPD and Hypertension. Patient allergic to Peanuts, Ipatropium, Shellfish. 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 Patient is , children one. ABG POC ABG pH 7.249 (7.35-7.45) L 03/01/19 16:31 ABG pH 7.226 pH Units (7.350-7.450) L 02/28/19 22:00 ABG pCO2 122.8 mm Hg 02/28/19 22:00 POC ABG pO2 103 (80-105) 03/01/19 16:31 ABG pO2 71.7 mm Hg (80.0-90.0) L 02/28/19 22:00 POC ABG HCO3 44.7 (22-26 mml/L) 03/01/19 16:31 POC ABG Total CO2 48 (23-27mmol/L) 03/01/19 16:31 POC ABG O2 Sat 96 03/01/19 16:31 ABG O2 Saturation 94.5 % (95.0-99.0) L 02/28/19 22:00 Patient presently resting on HFOT at 40L, 40% with oxygen saturations of 77% Patient presently on I/V solumedrol, Aerosolized bronchodilators and I/v Antibiotics Zithromax and ceftriaxone. Patient is on S/C Lovenox Patient was seen and examined. Vitals, labs, medications, chart and imaging reviewed. She is on home oxygen at 3L/min, and on further questioning she states Dr. Quintana is her community button cutting machine operator. I have told her that I will transfer care to Dr. Mancilla, who is making rounds for the group.
--- NOTE | 2019-03-02 13:05 | Consultation ---
History of Present Illness Consult date: 03/02/19 Requesting physician: ANA CUMMINGS Reason for consult: COPD History of present illness: 63 y/o female, well known to us admitted with COPD and chronic respiratory failure. Currently on HFNC. Has been admitted twice in the last 2 months but we were not consulted. Per patient she told the physician who was seeing her who her lung doc was but we were not notified. Today she tells me that her bipap at home has been taken away from her secondary to balance due that she could not afford. She has not had it for at least 2 months now. Past History Past Medical History: COPD (on home o2; Asthma), hypertension, other (anxiety, hx intubation) Past Surgical History: No surgical history Social history: other (former smoker) Medications and Allergies Allergies Allergy/AdvReac Type Severity Reaction Status Date / Time peanut Allergy Angioedema Verified 12/03/18 04:44 ipratropium bromide AdvReac Shortness Verified 12/03/18 04:44 [From Atrovent] of Breath Shellfish Allergy Unknown Uncoded 01/15/18 14:25 Home Medications Medication Instructions Recorded Confirmed Last Taken Type Carvedilol [Coreg] 6.25 mg PO BID #60 tablet 11/30/17 02/28/19 01/29/19 Rx Lisinopril [Zestril TAB] 5 mg PO QDAY #30 tablet 11/30/17 02/28/19 01/29/19 Rx Montelukast [Singulair] 10 mg PO QHS #30 tablet 02/20/18 02/28/19 01/29/19 Rx Albuterol Sulfate [Ventolin HFA] 2 puff IH Q4H PRN #1 hfa.aer.ad 07/26/18 02/28/19 01/30/19 Rx QUEtiapine [SEROquel] 50 mg PO QHS #30 tablet 07/26/18 02/28/19 01/29/19 Rx amLODIPine [Norvasc] 10 mg PO QDAY #30 tablet 07/26/18 02/28/19 01/29/19 Rx hydrALAZINE [Apresoline TAB] 25 mg PO Q8HR #90 tablet 07/26/18 02/28/19 01/29/19 Rx ALPRAZolam 0.25 mg PO BID 12/03/18 02/28/19 01/29/19 History Arformoterol Nebu [Brovana Nebu] 15 mcg IH Q12HRT #30 ml 02/02/19 02/28/19 Unknown Rx Budesonide [Pulmicort Respules] 0.5 mg IH Q12HRT #30 nebu 02/02/19 02/28/19 Unknown Rx Prednisone [predniSONE 10 mg 10 mg PO .TAPER #1 tab.ds.pk 02/14/19 02/28/19 Unknown Rx (6-Day Pack, 21 Tabs)] Active Meds: Active Medications Acetaminophen (Tylenol) 650 mg PO Q4H PRN PRN Reason: Pain MILD(1-3)/Fever >100.5/PÉREZ Last Admin: 03/02/19 10:16 Dose: 650 mg Documented by: Albuterol (Proventil) 2.5 mg IH Q4H PRN PRN Reason: Shortness Of Breath Albuterol/Ipratropium (Duoneb *Not For Prn Use*) 1 ampul IH TIDRT [facility] Last Admin: 03/01/19 19:21 Dose: 1 ampul Documented by: Alprazolam (Xanax) 0.25 mg PO BID [facility] Last Admin: 03/01/19 22:09 Dose: 0.25 mg Documented by: Arformoterol Tartrate (Brovana Nebu) 15 mcg IH Q12HRT [facility] Last Admin: 03/02/19 07:22 Dose: 15 mcg Documented by: Budesonide (Pulmicort) 0.5 mg IH Q12HRT [facility] Last Admin: 03/02/19 07:22 Dose: 0.5 mg Documented by: Carvedilol (Coreg) 3.125 mg PO BID [facility] Last Admin: 03/02/19 10:11 Dose: 3.125 mg Documented by: Docusate Sodium (Colace) 100 mg PO BID [facility] Last Admin: 03/02/19 10:11 Dose: 100 mg Documented by: Enoxaparin Sodium (Lovenox) 40 mg SUB-Q QDAY [facility] Last Admin: 03/02/19 10:12 Dose: 40 mg Documented by: Guaifenesin (Mucinex Er) 600 mg PO BID [facility] Last Admin: 03/02/19 10:12 Dose: 600 mg Documented by: Hydralazine HCl (Apresoline) 25 mg PO Q8HR [facility] Last Admin: 03/02/19 06:24 Dose: Not Given Documented by: Ceftriaxone Sodium (Rocephin/Ns 1 Gm/50 Ml) 1 gm in 50 mls @ 100 mls/hr IV DAILY@0800 [facility]; Protocol Last Admin: 03/02/19 10:10 Dose: 100 mls/hr Documented by: Azithromycin 500 mg/ Sodium (Chloride) 250 mls @ 250 mls/hr IV Q24HR [facility]; Protocol Last Admin: 03/02/19 10:16 Dose: 250 mls/hr Documented by: Lisinopril (Zestril) 5 mg PO QDAY [facility] Last Admin: 03/02/19 10:12 Dose: 5 mg Documented by: Methylprednisolone Sodium Succinate (Solu-Medrol) 80 mg IV Q8H [facility] Last Admin: 03/02/19 02:15 Dose: 80 mg Documented by: Montelukast Sodium (Singulair) 10 mg PO QHS [facility] Last Admin: 03/01/19 22:10 Dose: 10 mg Documented by: Ondansetron HCl (Zofran) 4 mg IV Q8H PRN PRN Reason: Nausea And Vomiting Quetiapine Fumarate (Seroquel) 50 mg PO QHS [facility] Last Admin: 03/01/19 22:10 Dose: 50 mg Documented by: Sodium Chloride (Sodium Chloride Flush Syringe 10 Ml) 10 ml IV BID [facility] Last Admin: 03/02/19 10:12 Dose: 10 ml Documented by: Sodium Chloride (Sodium Chloride Flush Syringe 10 Ml) 10 ml IV PRN PRN PRN Reason: LINE FLUSH Review of Systems All systems: negative Physical Examination Vital signs: Vital Signs Temp Pulse Resp BP Pulse Ox 98.4 F 96 H 20 129/68 92 02/28/19 16:29 02/28/19 16:29 02/28/19 16:29 02/28/19 16:29 02/28/19 16:29 General appearance: no acute distress, alert Eyes: non-icteric ENT: oropharynx moist Neck: supple Ascultation: Bilateral: diminished breath sounds, wheezes Percussion: Bilateral: not dull Cardiovascular: regular rate and rhythm Gastrointestinal: normoactive bowel sounds, soft, non-tender, non-distended Results - Laboratory Findings CBC and BMP: 03/02/19 04:29 03/02/19 04:29 ABG POC ABG pH 7.346 (7.35-7.45) L 03/02/19 01:58 ABG pH 7.226 pH Units (7.350-7.450) L 02/28/19 22:00 ABG pCO2 122.8 mm Hg 02/28/19 22:00 POC ABG pO2 82 (80-105) 03/02/19 01:58 ABG pO2 71.7 mm Hg (80.0-90.0) L 02/28/19 22:00 POC ABG HCO3 47.5 (22-26 mml/L) 03/02/19 01:58 POC ABG Total CO2 > 50 (23-27mmol/L) 03/02/19 01:58 POC ABG O2 Sat 94 03/02/19 01:58 ABG O2 Saturation 94.5 % (95.0-99.0) L 02/28/19 22:00 Abnormal lab findings: Abnormal Labs 02/28/19 02/28/19 02/28/19 17:03 17:10 18:53 WBC RBC MCV 104 H MCH Seg Neutrophils % 75.6 H Seg Neuts % (Manual) Lymphocytes % (Manual) Lymphocytes # (Manual) POC ABG pH 7.174 L ABG pH POC ABG pO2 69 L ABG pO2 ABG HCO3 ABG O2 Saturation ABG Base Excess Oxyhemoglobin Sodium 146 H Chloride 94.8 L Carbon Dioxide 49 H* BUN Creatinine 0.3 L Glucose POC Glucose 02/28/19 03/01/19 03/01/19 22:00 04:20 04:20 WBC RBC MCV 105 H MCH 33 H Seg Neutrophils % Seg Neuts % (Manual) 96.0 H Lymphocytes % (Manual) 4.0 L Lymphocytes # (Manual) 0.2 L POC ABG pH ABG pH 7.226 L POC ABG pO2 ABG pO2 71.7 L ABG HCO3 49.8 H ABG O2 Saturation 94.5 L ABG Base Excess 16.6 H Oxyhemoglobin 91.0 L Sodium 147 H Chloride 93.8 L Carbon Dioxide 43 H* BUN 19 H Creatinine 0.4 L Glucose 124 H POC Glucose 03/01/19 03/01/19 03/01/19 08:36 16:31 20:33 WBC RBC MCV MCH Seg Neutrophils % Seg Neuts % (Manual) Lymphocytes % (Manual) Lymphocytes # (Manual) POC ABG pH 7.261 L 7.249 L ABG pH POC ABG pO2 108 H ABG pO2 ABG HCO3 ABG O2 Saturation ABG Base Excess Oxyhemoglobin Sodium Chloride Carbon Dioxide BUN Creatinine Glucose POC Glucose 262 H 03/02/19 03/02/19 03/02/19 01:58 04:29 04:29 WBC 13.2 H RBC 3.58 L MCV 101 H MCH Seg Neutrophils % Seg Neuts % (Manual) Lymphocytes % (Manual) Lymphocytes # (Manual) POC ABG pH 7.346 L ABG pH POC ABG pO2 ABG pO2 ABG HCO3 ABG O2 Saturation ABG Base Excess Oxyhemoglobin Sodium 136 L D Chloride 89.3 L Carbon Dioxide 41 H* BUN 36 H Creatinine Glucose 132 H POC Glucose - Diagnostic Findings Chest x-ray: image reviewed (stable COPD, no acute lung disease noted) Assessment and Plan 63 y/o female with acute on chronic respiratory failure secondary to COPD exacerbation and lack of positive pressure at night. 1. Changed steroids to 60q6 2. Stopped brovana therapy and increased scheduled duonebs to every 4 hours. Continue pulmicort 3. Orderd Bipap QHS 4. WEan HFNC for sats >88% and decreased work of breathing 5. Spoke with CM and will call our office to see if we can figure out why the machine was removed but she is definitely a candidate for nocturnal noninvasive ventilation.
--- NOTE | 2019-03-02 15:18 | Progress Note ---
Assessment and Plan Assessment and plan: Patient is a 63 yo woman with a history of anxiety, chronic respiratory failure on 3L on home O2 due to end stage COPD, CHF EF 40-45%, trace AR who presented with SOB and productive cough. Acute Exacerbation COPD -Continue supportive care -Nebulizer treatments around the clock -LABA/ICS -IV systemic steroids -Abx started -Mucinex -Pulmonary consulted Acute on chronic hypoxic respiratory failure with hypercapnia -Baseline home oxygen requirement of 2-3 L continuously -Initial pH 7.14/130/69 -off BiPAP, on high flow 60% but sat down, so increased fiO2 with good results -Monitor saturations -Monitor CO2 -Continue supplemental oxygen wean as tolerated -During previous admission it was suggested patient may benefit from NIV to help with improve quality of life and prevent future hospital re-admission -Will follow up with case management Hypertension -Continue to monitor BP -Resume home antihypertensive meds to optimize BP Hypernatremia -treat with free water Anxiety -Continue Xanax DVT PPX -on Lovenox -SCD's CCT 33 minutes History Interval history: Patient was seen and examined. Follow-up on current diagnosis. No overnight events reported to me. Patient denies any chest pain, shortness breath, nausea/vomiting or severe headaches. Imaging, nursing note, chart, labs and old chart reviewed. Discussed with patient. Hospitalist Physical - Physical exam Narrative exam: Gen: thin frail, ill appearing, Awake, Alert, Orientated x 3, on BIPAP HEENT: NCAT, EOMI, PERRL, OP Clear Neck: supple, no adenopathy, no thyromegaly, no JVD CVS/Heart: RRR, normal S1S2, pulses present bilaterally Chest/Lungs: Diminished BS bilaterally, Symmetrical chest expansion, good air entry bilaterally GI/Abdomen: soft, NTND, good bowel sounds, no guarding or rebound /Bladder: no suprapubic tenderness, no CVA or paraspinal tenderness Extermity/Skin: no c/c/e, no obvious rash MSK: FROM x 4 Neuro: CN 2-12 grossly intact, no new focal deficits Psych: calm - Constitutional Vitals: Temp Pulse Resp BP Pulse Ox 98.4 F 104 H 24 102/54 97 03/02/19 12:00 03/02/19 10:12 03/02/19 07:40 03/02/19 10:12 03/02/19 10:00 Results - Labs CBC & Chem 7: 03/02/19 04:29 03/02/19 04:29 Labs: Laboratory Last Values WBC 13.2 K/mm3 (4.5-11.0) H 03/02/19 04:29 RBC 3.58 M/mm3 (3.65-5.03) L 03/02/19 04:29 Hgb 11.3 gm/dl (10.1-14.3) 03/02/19 04:29 Hct 36.2 % (30.3-42.9) D 03/02/19 04:29 MCV 101 fl (79-97) H 03/02/19 04:29 MCH 32 pg (28-32) 03/02/19 04:29 MCHC 31 % (30-34) 03/02/19 04:29 RDW 14.0 % (13.2-15.2) 03/02/19 04:29 Plt Count 199 K/mm3 (140-440) 03/02/19 04:29 Lymph % (Auto) 16.9 % (13.4-35.0) 02/28/19 17:03 Dickenson % (Auto) 6.9 % (0.0-7.3) 02/28/19 17:03 Eos % (Auto) 0.5 % (0.0-4.3) 02/28/19 17:03 Baso % (Auto) 0.1 % (0.0-1.8) 02/28/19 17:03 Lymph # 1.4 K/mm3 (1.2-5.4) 02/28/19 17:03 Dickenson # 0.6 K/mm3 (0.0-0.8) 02/28/19 17:03 Eos # 0.0 K/mm3 (0.0-0.4) 02/28/19 17:03 Baso # 0.0 K/mm3 (0.0-0.1) 02/28/19 17:03 Add Manual Diff Complete 03/01/19 04:20 Total Counted 100 03/01/19 04:20 Seg Neutrophils % [employer] T[employer] 03/01/19 04:20 Seg Neuts % (Manual) 96.0 % (40.0-70.0) H 03/01/19 04:20 0 % 03/01/19 04:20 4.0 % (13.4-35.0) L 03/01/19 04:20 Reactive Lymphs % (Man) 0 % 03/01/19 04:20 0 % (0.0-7.3) 03/01/19 04:20 0 % (0.0-4.3) 03/01/19 04:20 0 % (0.0-1.8) 03/01/19 04:20 0 % 03/01/19 04:20 0 % 03/01/19 04:20 0 % 03/01/19 04:20 0 % 03/01/19 04:20 Nucleated RBC % Not Reportable 03/01/19 04:20 Seg Neutrophils # 6.2 K/mm3 (1.8-7.7) 02/28/19 17:03 Seg Neutrophils # Man 5.2 K/mm3 (1.8-7.7) 03/01/19 04:20 Band Neutrophils # 0.0 K/mm3 03/01/19 04:20 0.2 K/mm3 (1.2-5.4) L 03/01/19 04:20 Abs React Lymphs (Man) 0.0 K/mm3 03/01/19 04:20 0.0 K/mm3 (0.0-0.8) 03/01/19 04:20 0.0 K/mm3 (0.0-0.4) 03/01/19 04:20 0.0 K/mm3 (0.0-0.1) 03/01/19 04:20 0.0 K/mm3 03/01/19 04:20 0.0 K/mm3 03/01/19 04:20 0.0 K/mm3 03/01/19 04:20 Blast Cells # 0.0 K/mm3 03/01/19 04:20 WBC Morphology Not Reportable 03/01/19 04:20 Hypersegmented Neuts Not Reportable 03/01/19 04:20 Hyposegmented Neuts Not Reportable 03/01/19 04:20 Hypogranular Neuts Not Reportable 03/01/19 04:20 Not Reportable 03/01/19 04:20 Not Reportable 03/01/19 04:20 Not Reportable 03/01/19 04:20 Not Reportable 03/01/19 04:20 Not Reportable 03/01/19 04:20 Not Reportable 03/01/19 04:20 Consistent w auto 03/01/19 04:20 Not Reportable 03/01/19 04:20 Plt Clumps, EDTA Not Reportable 03/01/19 04:20 Not Reportable 03/01/19 04:20 Not Reportable 03/01/19 04:20 Not Reportable 03/01/19 04:20 Plt Morphology Comment Not Reportable 03/01/19 04:20 RBC Morphology Not Reportable 03/01/19 04:20 Dimorphic RBCs Not Reportable 03/01/19 04:20 Not Reportable 03/01/19 04:20 Not Reportable 03/01/19 04:20 Not Reportable 03/01/19 04:20 Not Reportable 03/01/19 04:20 Not Reportable 03/01/19 04:20 Rare 03/01/19 04:20 Not Reportable 03/01/19 04:20 Not Reportable 03/01/19 04:20 Not Reportable 03/01/19 04:20 Not Reportable 03/01/19 04:20 Not Reportable 03/01/19 04:20 Not Reportable 03/01/19 04:20 2+ 03/01/19 04:20 Not Reportable 03/01/19 04:20 Not Reportable 03/01/19 04:20 Not Reportable 03/01/19 04:20 Not Reportable 03/01/19 04:20 Not Reportable 03/01/19 04:20 Not Reportable 03/01/19 04:20 Not Reportable 03/01/19 04:20 Acanthocytes (Spur) Not Reportable 03/01/19 04:20 Rouleaux Not Reportable 03/01/19 04:20 Not Reportable 03/01/19 04:20 Not Reportable 03/01/19 04:20 Not Reportable 03/01/19 04:20 Not Reportable 03/01/19 04:20 Hem Pathologist Commnt No 03/01/19 04:20 POC ABG pH 7.346 (7.35-7.45) L 03/02/19 01:58 ABG pH 7.226 pH Units (7.350-7.450) L 02/28/19 22:00 ABG pCO2 122.8 mm Hg 02/28/19 22:00 POC ABG pO2 82 (80-105) 03/02/19 01:58 ABG pO2 71.7 mm Hg (80.0-90.0) L 02/28/19 22:00 POC ABG HCO3 47.5 (22-26 mml/L) 03/02/19 01:58 ABG HCO3 49.8 mmol/L (20.0-26.0) H 02/28/19 22:00 POC ABG Total CO2 > 50 (23-27mmol/L) 03/02/19 01:58 POC ABG O2 Sat 94 03/02/19 01:58 ABG O2 Saturation 94.5 % (95.0-99.0) L 02/28/19 22:00 ABG O2 Content 16.9 (0.0-44) 02/28/19 22:00 POC ABG Base Excess 22 ((-2) - (+3)mmol/L) 03/02/19 01:58 ABG Base Excess 16.6 mmol/L (-2.0-3.0) H 02/28/19 22:00 ABG Hemoglobin 13.2 gm/dl (12.0-16.0) 02/28/19 22:00 ABG Carboxyhemoglobin 3.0 % (0.0-5.0) 02/28/19 22:00 ABG Methemoglobin 0.7 % (0.0-1.5) 02/28/19 22:00 91.0 % (95.0-99.0) L 02/28/19 22:00 40 % 03/02/19 01:58 Sodium 136 mmol/L (137-145) L D 03/02/19 04:29 Potassium 4.3 mmol/L (3.6-5.0) 03/02/19 04:29 Chloride 89.3 mmol/L (98-107) L 03/02/19 04:29 Carbon Dioxide 41 mmol/L (22-30) H* 03/02/19 04:29 10 mmol/L 03/02/19 04:29 BUN 36 mg/dL (7-17) H 03/02/19 04:29 0.7 mg/dL (0.7-1.2) D 03/02/19 04:29 Estimated GFR > 60 ml/min 03/02/19 04:29 51 % 03/02/19 04:29 Glucose 132 mg/dL (65-100) H 03/02/19 04:29 POC Glucose 262 (70-105) H 03/01/19 20:33 Calcium 8.9 mg/dL (8.4-10.2) 03/02/19 04:29 < 0.010 ng/mL (0.00-0.029) 03/02/19 06:46 NT-Pro-B Natriuret Pep 54.75 pg/mL (0-900) 02/28/19 17:03 Active Medications - Current Medications Current Medications: Generic Name Dose Route Start Last Admin Trade Name Freq PRN Reason Stop Dose Admin Acetaminophen 650 mg 02/28/19 19:44 03/02/19 10:16 Tylenol PO 650 mg Q4H PRN Administration Pain MILD(1-3)/Fever >100.5/PÉREZ Albuterol 2.5 mg 03/01/19 08:24 Proventil IH Q4H PRN Shortness Of Breath Albuterol/Ipratropium 1 ampul 03/02/19 16:00 Duoneb *Not For Prn Use* IH Q4HRT SEBASTIAN Alprazolam 0.25 mg 02/28/19 22:00 03/01/19 22:09 Xanax PO 0.25 mg BID SEBASTIAN Administration Budesonide 0.5 mg 02/28/19 20:00 03/02/19 07:22 Pulmicort IH 0.5 mg Q12HRT SEBASTIAN Administration Carvedilol 3.125 mg 03/01/19 22:00 03/02/19 10:11 Coreg PO 3.125 mg BID SEBASTIAN Administration Docusate Sodium 100 mg 02/28/19 22:00 03/02/19 10:11 Colace PO 100 mg BID SEBASTIAN Administration Enoxaparin Sodium 40 mg 03/01/19 10:00 03/02/19 10:12 Lovenox SUB-Q 40 mg QDAY SEBASTIAN Administration Guaifenesin 600 mg 02/28/19 22:00 03/02/19 10:12 Mucinex Er PO 600 mg BID SEBASTIAN Administration Hydralazine HCl 25 mg 02/28/19 22:00 03/02/19 06:24 Apresoline PO Not Given Q8HR [facility] Ceftriaxone Sodium 1 gm in 50 mls @ 100 mls/hr 03/01/19 10:00 03/02/19 10:10 Rocephin/Ns 1 Gm/50 Ml IV 100 mls/hr DAILY@0800 SEBASTIAN Administration Protocol Azithromycin 500 mg/ Sodium 250 mls @ 250 mls/hr 03/01/19 10:00 03/02/19 1 0:16 Chloride IV 250 mls/hr Q24HR SEBASTIAN Administration Protocol Lisinopril 5 mg 03/01/19 10:00 03/02/19 10:12 Zestril PO 5 mg QDAY SEBASTIAN Administration Methylprednisolone Sodium Succinate 60 mg 03/02/19 14:00 Solu-Medrol IV Q6H SEBASTIAN Montelukast Sodium 10 mg 02/28/19 22:00 03/01/19 22:10 Singulair PO 10 mg QHS SEBASTIAN Administration Ondansetron HCl 4 mg 02/28/19 19:44 Zofran IV Q8H PRN Nausea And Vomiting Quetiapine Fumarate 50 mg 02/28/19 22:00 03/01/19 22:10 Seroquel PO 50 mg QHS SEBASTIAN Administration Sodium Chloride 10 ml 02/28/19 22:00 03/02/19 10:12 Sodium Chloride Flush Syringe 10 Ml IV 10 ml BID SEBASTIAN Administration Sodium Chloride 10 ml 02/28/19 19:44 Sodium Chloride Flush Syringe 10 Ml IV PRN PRN LINE FLUSH Nutrition/Malnutrition Assess - Dietary Evaluation Nutrition/Malnutrition Findings: Nutrition Notes Start: 03/01/19 10:49 Freq: Status: Active Protocol: Document 03/01/19 10:50 DW (Rec: 03/01/19 11:26 DW [id number]) Co-Sign 03/01/19 10:50 LP Nutrition Notes Need for Assessment generated from: breast trimmer,MST Initial or Follow up Assessment Current Diagnosis COPD,Hypertension,Respiratory Failure Other Pertinent Diagnosis SOB, Anxiety Current Diet Regular Labs/Tests Glu: 124 Na: 147 Cr: 0.3 Pertinent Medications Reviewed Height 5 ft 2 in Weight 58.967 kg [place] Body Weight (kg) 50.00 BMI 23.8 Subjective/Other Information Pt heavily sedated on medication upon arrival and unable to communicate. Pt on ventimask Pt diet advanced from NPO to Regular since visit. Burn Absent Trauma Absent GI Symptoms None Food Allergy Yes Minimum of two criteria No #1 Nutrition Diagnosis Predicted suboptimal energy intake Etiology ventimask As Evidenced by Signs and Symptoms pt currently NPO and unable to obtain nutrition history Is patient on ventilator? No Is Patient Ambulatory and/or Out of Bed No REE-([facility]-confined to bed) 7714.652 Calculation Used for Recommendations [facility] Additional Notes PRO needs: 59-71g (1-1.2 g/kg) Fluid needs:1 mL/kcal Nutrition Intervention Change Diet Order: Continue current diet Add Supplement/Snack (indicate name/kcal Ensure Enlive daily /protein ) Provides kCal: 350 Provides Protein (gm) 20 Goal #1 Meet atleast 75% of energy and PRO needs Anticipated Discharge Needs: Regular diet and ONS daily Follow-Up By: 03/03/19 Additional Comments FU PO/ONS intake
[2019-03-02] MEDS: DUONEB *Not for PRN Use IH SCH ×2 (15:34→20:44)
[2019-03-03] MEDS: SINGULAIR PO SCH ×2 (00:05→21:59)
[2019-03-03] MEDS: COREG PO SCH ×3 (00:06→21:58)
[2019-03-03] MEDS: APRESOLINE PO SCH ×4 (00:06→21:57)
[2019-03-03] MEDS: COLACE PO SCH ×3 (00:06→21:57)
[2019-03-03] MEDS: TYLENOL PO PRN ×2 (00:06→09:56)
[2019-03-03] MEDS: XANAX PO SCH ×3 (00:07→22:00)
[2019-03-03] MEDS: SODIUM CHLORIDE FLUSH SYRINGE 10 ML IV SCH ×3 (00:07→22:00)
[2019-03-03] MEDS: SOLU-Medrol IV SCH ×5 (00:15→20:17)
[2019-03-03] MEDS: MUCINEX ER PO SCH ×3 (00:15→21:58)
[2019-03-03] MEDS: DUONEB *Not for PRN Use IH SCH ×6 (00:28→20:00)
[2019-03-03] MEDS: ROCEPHIN/NS 1 GM/50 ML 1 GM/50 ML BAG IV SCH (08:36)
[2019-03-03] MEDS: PULMICORT IH SCH ×2 (09:04→20:00)
[2019-03-03] MEDS: ZESTRIL PO SCH (09:55)
[2019-03-03] MEDS: ZITHROMAX 500 MG in NACL 0.9% 250ML 250 ML IV SCH (09:56)
[2019-03-03] MEDS: LOVENOX SUB-Q SCH (09:56)
--- NOTE | 2019-03-03 12:37 | Progress Note ---
Assessment and Plan Imp: 1. Centrilobular emphysema 2. COPD exac. 3. A/C respiratory failure, hypoxia/hypercapnea 4. Acute bronchitis 5. Anxiety Rec: 1. Cont. Solumedrol, ABX, nebs 2. Goal sats 88-94% at all times; wean HFNC 3. Patient lost her BIPAP machine a couple of months ago; she will not survive without NIPPV; I recommend trying to get Trilogy/NIV arranged prior to d/c 4. Complex decision-making Plan of care reviewed w/ patient, she understands/agrees Subjective Date of service: 03/03/19 Principal diagnosis: COPD Interval history: No events. SOB improving. + Wheezing. No new complaints. Currently on HFNC. Active Medications Acetaminophen (Tylenol) 650 mg PO Q4H PRN PRN Reason: Pain MILD(1-3)/Fever >100.5/PÉREZ Last Admin: 03/03/19 09:56 Dose: 650 mg Documented by: Albuterol (Proventil) 2.5 mg IH Q4H PRN PRN Reason: Shortness Of Breath Albuterol/Ipratropium (Duoneb *Not For Prn Use*) 1 ampul IH Q4HRT [facility] Last Admin: 03/03/19 20:00 Dose: 1 ampul Documented by: Alprazolam (Xanax) 0.25 mg PO BID [facility] Last Admin: 03/03/19 22:00 Dose: 0.25 mg Documented by: Budesonide (Pulmicort) 0.5 mg IH Q12HRT [facility] Last Admin: 03/03/19 20:00 Dose: 0.5 mg Documented by: Carvedilol (Coreg) 3.125 mg PO BID [facility] Last Admin: 03/03/19 21:58 Dose: 3.125 mg Documented by: Docusate Sodium (Colace) 100 mg PO BID [facility] Last Admin: 03/03/19 21:57 Dose: Not Given Documented by: Enoxaparin Sodium (Lovenox) 40 mg SUB-Q QDAY [facility] Last Admin: 03/03/19 09:56 Dose: 40 mg Documented by: Guaifenesin (Mucinex Er) 600 mg PO BID [facility] Last Admin: 03/03/19 21:58 Dose: 600 mg Documented by: Hydralazine HCl (Apresoline) 25 mg PO Q8HR [facility] Last Admin: 03/03/19 21:57 Dose: 25 mg Documented by: Ceftriaxone Sodium (Rocephin/Ns 1 Gm/50 Ml) 1 gm in 50 mls @ 100 mls/hr IV DAILY@0800 [facility]; Protocol Last Admin: 03/03/19 08:36 Dose: 100 mls/hr Documented by: Azithromycin 500 mg/ Sodium (Chloride) 250 mls @ 250 mls/hr IV Q24HR [facility]; Protocol Last Admin: 03/03/19 09:56 Dose: 250 mls/hr Documented by: Lisinopril (Zestril) 5 mg PO QDAY [facility] Last Admin: 03/03/19 09:55 Dose: 5 mg Documented by: Methylprednisolone Sodium Succinate (Solu-Medrol) 60 mg IV Q6H [facility] Last Admin: 03/03/19 20:17 Dose: 60 mg Documented by: Montelukast Sodium (Singulair) 10 mg PO QHS [facility] Last Admin: 03/03/19 21:59 Dose: 10 mg Documented by: Ondansetron HCl (Zofran) 4 mg IV Q8H PRN PRN Reason: Nausea And Vomiting Quetiapine Fumarate (Seroquel) 50 mg PO QHS [facility] Last Admin: 03/03/19 21:58 Dose: 50 mg Documented by: Sodium Chloride (Sodium Chloride Flush Syringe 10 Ml) 10 ml IV BID [facility] Last Admin: 03/03/19 22:00 Dose: 10 ml Documented by: Sodium Chloride (Sodium Chloride Flush Syringe 10 Ml) 10 ml IV PRN PRN PRN Reason: LINE FLUSH Objective Vital Signs - 12hr 03/03/19 03/03/19 03/03/19 01:00 01:31 02:00 Temperature Pulse Rate 94 H 87 82 Pulse Rate [ Anterior Bilateral Throughout] Pulse Rate [ From Monitor] Pulse Rate [ Posterior Bilateral Throughout] Respiratory 27 H 24 22 Rate Respiratory Rate [Anterior Bilateral Throughout] Respiratory Rate [Posterior Bilateral Throughout] Blood Pressure 92/47 118/51 101/48 O2 Sat by Pulse 97 100 100 Oximetry 03/03/19 03/03/19 03/03/19 02:31 03:00 03:31 Temperature Pulse Rate 76 73 70 Pulse Rate [ Anterior Bilateral Throughout] Pulse Rate [ From Monitor] Pulse Rate [ Posterior Bilateral Throughout] Respiratory 29 H 18 20 Rate Respiratory Rate [Anterior Bilateral Throughout] Respiratory Rate [Posterior Bilateral Throughout] Blood Pressure 101/48 98/54 98/54 O2 Sat by Pulse 99 98 97 Oximetry 03/03/19 03/03/19 03/03/19 04:00 04:31 04:54 Temperature 97.7 F Pulse Rate 69 67 Pulse Rate [ 71 Anterior Bilateral Throughout] Pulse Rate [ 68 From Monitor] Pulse Rate [ 65 Posterior Bilateral Throughout] Respiratory 26 H 22 Rate Respiratory 32 H Rate [Anterior Bilateral Throughout] Respiratory 22 Rate [Posterior Bilateral Throughout] Blood Pressure 99/55 99/55 O2 Sat by Pulse 98 98 Oximetry 03/03/19 03/03/19 03/03/19 05:00 05:28 05:31 Temperature Pulse Rate 64 64 61 Pulse Rate [ Anterior Bilateral Throughout] Pulse Rate [ From Monitor] Pulse Rate [ Posterior Bilateral Throughout] Respiratory 28 H 30 H Rate Respiratory Rate [Anterior Bilateral Throughout] Respiratory Rate [Posterior Bilateral Throughout] Blood Pressure 111/55 111/55 O2 Sat by Pulse 98 97 Oximetry 03/03/19 03/03/19 03/03/19 06:00 06:18 06:31 Temperature Pulse Rate 72 69 Pulse Rate [ Anterior Bilateral Throughout] Pulse Rate [ From Monitor] Pulse Rate [ Posterior Bilateral Throughout] Respiratory 30 H 30 H Rate Respiratory Rate [Anterior Bilateral Throughout] Respiratory Rate [Posterior Bilateral Throughout] Blood Pressure 100/47 100/47 100/47 O2 Sat by Pulse 98 97 Oximetry 03/03/19 03/03/19 03/03/19 07:01 07:31 08:00 Temperature 97.6 F Pulse Rate 68 70 68 Pulse Rate [ Anterior Bilateral Throughout] Pulse Rate [ 68 From Monitor] Pulse Rate [ Posterior Bilateral Throughout] Respiratory 29 H 25 H 30 H Rate Respiratory Rate [Anterior Bilateral Throughout] Respiratory Rate [Posterior Bilateral Throughout] Blood Pressure 109/57 109/57 117/57 O2 Sat by Pulse 100 99 100 Oximetry 03/03/19 03/03/19 03/03/19 08:31 09:00 09:05 Temperature Pulse Rate 76 88 Pulse Rate [ 96 H Anterior Bilateral Throughout] Pulse Rate [ From Monitor] Pulse Rate [ 96 H Posterior Bilateral Throughout] Respiratory 14 20 Rate Respiratory 17 Rate [Anterior Bilateral Throughout] Respiratory 17 Rate [Posterior Bilateral Throughout] Blood Pressure 117/57 124/47 O2 Sat by Pulse 95 98 Oximetry 03/03/19 03/03/19 03/03/19 09:11 09:27 09:31 Temperature Pulse Rate 69 99 H Pulse Rate [ Anterior Bilateral Throughout] Pulse Rate [ From Monitor] Pulse Rate [ Posterior Bilateral Throughout] Respiratory 16 Rate Respiratory Rate [Anterior Bilateral Throughout] Respiratory Rate [Posterior Bilateral Throughout] Blood Pressure 124/47 O2 Sat by Pulse 95 90 Oximetry 03/03/19 03/03/19 03/03/19 09:55 10:01 10:31 Temperature Pulse Rate 102 H 103 H 111 H Pulse Rate [ Anterior Bilateral Throughout] Pulse Rate [ From Monitor] Pulse Rate [ Posterior Bilateral Throughout] Respiratory 14 18 Rate Respiratory Rate [Anterior Bilateral Throughout] Respiratory Rate [Posterior Bilateral Throughout] Blood Pressure 124/47 156/71 156/71 O2 Sat by Pulse 95 94 Oximetry Constitutional: no acute distress, alert Eyes: non-icteric ENT: oropharynx moist Neck: supple Ascultation: Bilateral: diminished breath sounds, wheezes, other (Prolonged expiratory phase.) Percussion: Bilateral: not dull Cardiovascular: regular rate and rhythm Gastrointestinal: normoactive bowel sounds, soft, non-tender, non-distended Integumentary: normal Extremities: no cyanosis, no edema Neurologic: normal mental status, non-focal exam, pupils equal and round Psychiatric: other (Sleeping at this time.) CBC and BMP: 03/02/19 04:29 03/02/19 04:29 ABG, PT/INR, D-dimer: ABG POC ABG pH 7.346 (7.35-7.45) L 03/02/19 01:58 ABG pH 7.226 pH Units (7.350-7.450) L 02/28/19 22:00 ABG pCO2 122.8 mm Hg 02/28/19 22:00 POC ABG pO2 82 (80-105) 03/02/19 01:58 ABG pO2 71.7 mm Hg (80.0-90.0) L 02/28/19 22:00 POC ABG HCO3 47.5 (22-26 mml/L) 03/02/19 01:58 POC ABG Total CO2 > 50 (23-27mmol/L) 03/02/19 01:58 POC ABG O2 Sat 94 03/02/19 01:58 ABG O2 Saturation 94.5 % (95.0-99.0) L 02/28/19 22:00 Abnormal lab findings: Abnormal Labs 02/28/19 02/28/19 02/28/19 17:03 17:10 18:53 WBC RBC MCV 104 H MCH Seg Neutrophils % 75.6 H Seg Neuts % (Manual) Lymphocytes % (Manual) Lymphocytes # (Manual) POC ABG pH 7.174 L ABG pH POC ABG pO2 69 L ABG pO2 ABG HCO3 ABG O2 Saturation ABG Base Excess Oxyhemoglobin Sodium 146 H Chloride 94.8 L Carbon Dioxide 49 H* BUN Creatinine 0.3 L Glucose POC Glucose 02/28/19 03/01/19 03/01/19 22:00 04:20 04:20 WBC RBC MCV 105 H MCH 33 H Seg Neutrophils % Seg Neuts % (Manual) 96.0 H Lymphocytes % (Manual) 4.0 L Lymphocytes # (Manual) 0.2 L POC ABG pH ABG pH 7.226 L POC ABG pO2 ABG pO2 71.7 L ABG HCO3 49.8 H ABG O2 Saturation 94.5 L ABG Base Excess 16.6 H Oxyhemoglobin 91.0 L Sodium 147 H Chloride 93.8 L Carbon Dioxide 43 H* BUN 19 H Creatinine 0.4 L Glucose 124 H POC Glucose 03/01/19 03/01/19 03/01/19 08:36 16:31 20:33 WBC RBC MCV MCH Seg Neutrophils % Seg Neuts % (Manual) Lymphocytes % (Manual) Lymphocytes # (Manual) POC ABG pH 7.261 L 7.249 L ABG pH POC ABG pO2 108 H ABG pO2 ABG HCO3 ABG O2 Saturation ABG Base Excess Oxyhemoglobin Sodium Chloride Carbon Dioxide BUN Creatinine Glucose POC Glucose 262 H 03/02/19 03/02/19 03/02/19 01:58 04:29 04:29 WBC 13.2 H RBC 3.58 L MCV 101 H MCH Seg Neutrophils % Seg Neuts % (Manual) Lymphocytes % (Manual) Lymphocytes # (Manual) POC ABG pH 7.346 L ABG pH POC ABG pO2 ABG pO2 ABG HCO3 ABG O2 Saturation ABG Base Excess Oxyhemoglobin Sodium 136 L D Chloride 89.3 L Carbon Dioxide 41 H* BUN 36 H Creatinine Glucose 132 H POC Glucose Chest x-ray: report reviewed, image reviewed (no acute findings)
--- NOTE | 2019-03-03 13:14 | Progress Note ---
Assessment and Plan Assessment and plan: Patient is a 63 yo woman with a history of anxiety, chronic respiratory failure on 3L on home O2 due to end stage COPD, CHF EF 40-45%, trace AR who presented with SOB and productive cough. Acute Exacerbation COPD -Continue supportive care -Nebulizer treatments around the clock -LABA/ICS -IV systemic steroids -Abx started -Mucinex -Pulmonary consulted Acute on chronic hypoxic respiratory failure with hypercapnia -Baseline home oxygen requirement of 2-3 L continuously -Initial pH 7.14/130/69 -off BiPAP, on high flow 60% but sat down, so increased fiO2 with good results -Monitor saturations -Monitor CO2 -Continue supplemental oxygen wean as tolerated -During previous admission it was suggested patient may benefit from NIV to help with improve quality of life and prevent future hospital re-admission -Will follow up with case management Hypertension -Continue to monitor BP -Resume home antihypertensive meds to optimize BP Hypernatremia -treat with free water Anxiety -Continue Xanax DVT PPX -on Lovenox -SCD's History Interval history: Patient was seen and examined. Follow-up on current diagnosis of COPD. No overnight events reported to me. Patient denies any chest pain, nausea/vomiting or severe headaches. Imaging, nursing note, chart, labs and old chart reviewed. Discussed with patient. Down to 40% high flow O2 Hospitalist Physical - Physical exam Narrative exam: Gen: thin frail, ill appearing, Awake, Alert, Orientated x 3, on BIPAP HEENT: NCAT, EOMI, PERRL, OP Clear Neck: supple, no adenopathy, no thyromegaly, no JVD CVS/Heart: RRR, normal S1S2, pulses present bilaterally Chest/Lungs: Diminished BS bilaterally, Symmetrical chest expansion, good air entry bilaterally GI/Abdomen: soft, NTND, good bowel sounds, no guarding or rebound /Bladder: no suprapubic tenderness, no CVA or paraspinal tenderness Extermity/Skin: no c/c/e, no obvious rash MSK: FROM x 4 Neuro: CN 2-12 grossly intact, no new focal deficits Psych: calm - Constitutional Vitals: Temp Pulse Resp BP Pulse Ox 97.6 F 96 H 14 116/56 99 03/03/19 08:00 03/03/19 12:31 03/03/19 12:31 03/03/19 12:31 03/03/19 12:31 Results - Labs CBC & Chem 7: 03/02/19 04:29 03/02/19 04:29 Labs: Laboratory Last Values WBC 13.2 K/mm3 (4.5-11.0) H 03/02/19 04:29 RBC 3.58 M/mm3 (3.65-5.03) L 03/02/19 04:29 Hgb 11.3 gm/dl (10.1-14.3) 03/02/19 04:29 Hct 36.2 % (30.3-42.9) D 03/02/19 04:29 MCV 101 fl (79-97) H 03/02/19 04:29 MCH 32 pg (28-32) 03/02/19 04:29 MCHC 31 % (30-34) 03/02/19 04:29 RDW 14.0 % (13.2-15.2) 03/02/19 04:29 Plt Count 199 K/mm3 (140-440) 03/02/19 04:29 Lymph % (Auto) 16.9 % (13.4-35.0) 02/28/19 17:03 [place] % (Auto) 6.9 % (0.0-7.3) 02/28/19 17:03 Eos % (Auto) 0.5 % (0.0-4.3) 02/28/19 17:03 Baso % (Auto) 0.1 % (0.0-1.8) 02/28/19 17:03 Lymph # 1.4 K/mm3 (1.2-5.4) 02/28/19 17:03 [place] # 0.6 K/mm3 (0.0-0.8) 02/28/19 17:03 Eos # 0.0 K/mm3 (0.0-0.4) 02/28/19 17:03 Baso # 0.0 K/mm3 (0.0-0.1) 02/28/19 17:03 Add Manual Diff Complete 03/01/19 04:20 Total Counted 100 03/01/19 04:20 Seg Neutrophils % [employer] Inspector 03/01/19 04:20 Seg Neuts % (Manual) 96.0 % (40.0-70.0) H 03/01/19 04:20 0 % 03/01/19 04:20 4.0 % (13.4-35.0) L 03/01/19 04:20 Reactive Lymphs % (Man) 0 % 03/01/19 04:20 0 % (0.0-7.3) 03/01/19 04:20 0 % (0.0-4.3) 03/01/19 04:20 0 % (0.0-1.8) 03/01/19 04:20 0 % 03/01/19 04:20 0 % 03/01/19 04:20 0 % 03/01/19 04:20 0 % 03/01/19 04:20 Nucleated RBC % Not Reportable 03/01/19 04:20 Seg Neutrophils # 6.2 K/mm3 (1.8-7.7) 02/28/19 17:03 Seg Neutrophils # Man 5.2 K/mm3 (1.8-7.7) 03/01/19 04:20 Band Neutrophils # 0.0 K/mm3 03/01/19 04:20 0.2 K/mm3 (1.2-5.4) L 03/01/19 04:20 Abs React Lymphs (Man) 0.0 K/mm3 03/01/19 04:20 0.0 K/mm3 (0.0-0.8) 03/01/19 04:20 0.0 K/mm3 (0.0-0.4) 03/01/19 04:20 0.0 K/mm3 (0.0-0.1) 03/01/19 04:20 0.0 K/mm3 03/01/19 04:20 0.0 K/mm3 03/01/19 04:20 0.0 K/mm3 03/01/19 04:20 Blast Cells # 0.0 K/mm3 03/01/19 04:20 WBC Morphology Not Reportable 03/01/19 04:20 Hypersegmented Neuts Not Reportable 03/01/19 04:20 Hyposegmented Neuts Not Reportable 03/01/19 04:20 Hypogranular Neuts Not Reportable 03/01/19 04:20 Not Reportable 03/01/19 04:20 Not Reportable 03/01/19 04:20 Not Reportable 03/01/19 04:20 Not Reportable 03/01/19 04:20 Not Reportable 03/01/19 04:20 Not Reportable 03/01/19 04:20 Consistent w auto 03/01/19 04:20 Not Reportable 03/01/19 04:20 Plt Clumps, EDTA Not Reportable 03/01/19 04:20 Not Reportable 03/01/19 04:20 Not Reportable 03/01/19 04:20 Not Reportable 03/01/19 04:20 Plt Morphology Comment Not Reportable 03/01/19 04:20 RBC Morphology Not Reportable 03/01/19 04:20 Dimorphic RBCs Not Reportable 03/01/19 04:20 Not Reportable 03/01/19 04:20 Not Reportable 03/01/19 04:20 Not Reportable 03/01/19 04:20 Not Reportable 03/01/19 04:20 Not Reportable 03/01/19 04:20 Rare 03/01/19 04:20 Not Reportable 03/01/19 04:20 Not Reportable 03/01/19 04:20 Not Reportable 03/01/19 04:20 Not Reportable 03/01/19 04:20 Not Reportable 03/01/19 04:20 Not Reportable 03/01/19 04:20 2+ 03/01/19 04:20 Not Reportable 03/01/19 04:20 Not Reportable 03/01/19 04:20 Not Reportable 03/01/19 04:20 Not Reportable 03/01/19 04:20 Not Reportable 03/01/19 04:20 Not Reportable 03/01/19 04:20 Not Reportable 03/01/19 04:20 Acanthocytes (Spur) Not Reportable 03/01/19 04:20 Rouleaux Not Reportable 03/01/19 04:20 Not Reportable 03/01/19 04:20 Not Reportable 03/01/19 04:20 Not Reportable 03/01/19 04:20 Not Reportable 03/01/19 04:20 Hem Pathologist Commnt No 03/01/19 04:20 POC ABG pH 7.346 (7.35-7.45) L 03/02/19 01:58 ABG pH 7.226 pH Units (7.350-7.450) L 02/28/19 22:00 ABG pCO2 122.8 mm Hg 02/28/19 22:00 POC ABG pO2 82 (80-105) 03/02/19 01:58 ABG pO2 71.7 mm Hg (80.0-90.0) L 02/28/19 22:00 POC ABG HCO3 47.5 (22-26 mml/L) 03/02/19 01:58 ABG HCO3 49.8 mmol/L (20.0-26.0) H 02/28/19 22:00 POC ABG Total CO2 > 50 (23-27mmol/L) 03/02/19 01:58 POC ABG O2 Sat 94 03/02/19 01:58 ABG O2 Saturation 94.5 % (95.0-99.0) L 02/28/19 22:00 ABG O2 Content 16.9 (0.0-44) 02/28/19 22:00 POC ABG Base Excess 22 ((-2) - (+3)mmol/L) 03/02/19 01:58 ABG Base Excess 16.6 mmol/L (-2.0-3.0) H 02/28/19 22:00 ABG Hemoglobin 13.2 gm/dl (12.0-16.0) 02/28/19 22:00 ABG Carboxyhemoglobin 3.0 % (0.0-5.0) 02/28/19 22:00 ABG Methemoglobin 0.7 % (0.0-1.5) 02/28/19 22:00 91.0 % (95.0-99.0) L 02/28/19 22:00 40 % 03/02/19 01:58 Sodium 136 mmol/L (137-145) L D 03/02/19 04:29 Potassium 4.3 mmol/L (3.6-5.0) 03/02/19 04:29 Chloride 89.3 mmol/L (98-107) L 03/02/19 04:29 Carbon Dioxide 41 mmol/L (22-30) H* 03/02/19 04:29 10 mmol/L 03/02/19 04:29 BUN 36 mg/dL (7-17) H 03/02/19 04:29 0.7 mg/dL (0.7-1.2) D 03/02/19 04:29 Estimated GFR > 60 ml/min 03/02/19 04:29 51 % 03/02/19 04:29 Glucose 132 mg/dL (65-100) H 03/02/19 04:29 POC Glucose 262 (70-105) H 03/01/19 20:33 Calcium 8.9 mg/dL (8.4-10.2) 03/02/19 04:29 < 0.010 ng/mL (0.00-0.029) 03/02/19 06:46 NT-Pro-B Natriuret Pep 54.75 pg/mL (0-900) 02/28/19 17:03 Active Medications - Current Medications Current Medications: Generic Name Dose Route Start Last Admin Trade Name Freq PRN Reason Stop Dose Admin Acetaminophen 650 mg 02/28/19 19:44 03/03/19 09:56 Tylenol PO 650 mg Q4H PRN Administration Pain MILD(1-3)/Fever >100.5/PÉREZ Albuterol 2.5 mg 03/01/19 08:24 Proventil IH Q4H PRN Shortness Of Breath Albuterol/Ipratropium 1 ampul 03/02/19 16:00 03/03/19 09:04 Duoneb *Not For Prn Use* IH 1 ampul Q4HRT SEBASTIAN Administration Alprazolam 0.25 mg 02/28/19 22:00 03/03/19 09:55 Xanax PO 0.25 mg BID SEBASTIAN Administration Budesonide 0.5 mg 02/28/19 20:00 03/03/19 09:04 Pulmicort IH 0.5 mg Q12HRT SEBASTIAN Administration Carvedilol 3.125 mg 03/01/19 22:00 03/03/19 09:55 Coreg PO 3.125 mg BID SEBASTIAN Administration Docusate Sodium 100 mg 02/28/19 22:00 03/03/19 09:55 Colace PO 100 mg BID SEBASTIAN Administration Enoxaparin Sodium 40 mg 03/01/19 10:00 03/03/19 09:56 Lovenox SUB-Q 40 mg QDAY SEBASTIAN Administration Guaifenesin 600 mg 02/28/19 22:00 03/03/19 09:55 Mucinex Er PO 600 mg BID SEBASTIAN Administration Hydralazine HCl 25 mg 02/28/19 22:00 03/03/19 06:18 Apresoline PO Not Given Q8HR [facility] Ceftriaxone Sodium 1 gm in 50 mls @ 100 mls/hr 03/01/19 10:00 03/03/19 08:36 Rocephin/Ns 1 Gm/50 Ml IV 100 mls/hr DAILY@0800 SEBASTIAN Administration Protocol Azithromycin 500 mg/ Sodium 250 mls @ 250 mls/hr 03/01/19 10:00 03/03/19 09:56 Chloride IV 250 mls/hr Q24HR [facility] Administration Protocol Lisinopril 5 mg 03/01/19 10:00 03/03/19 09:55 Zestril PO 5 mg QDAY SEBASTIAN Administration Methylprednisolone Sodium Succinate 60 mg 03/02/19 14:00 03/03/19 08:36 Solu-Medrol IV 60 mg Q6H SEBASTIAN Administration Montelukast Sodium 10 mg 02/28/19 22:00 03/03/19 00:05 Singulair PO 10 mg QHS SEBASTIAN Administration Ondansetron HCl 4 mg 02/28/19 19:44 Zofran IV Q8H PRN Nausea And Vomiting Quetiapine Fumarate 50 mg 02/28/19 22:00 03/03/19 00:05 Seroquel PO 50 mg QHS SEBASTIAN Administration Sodium Chloride 10 ml 02/28/19 22:00 03/03/19 00:07 Sodium Chloride Flush Syringe 10 Ml IV 10 ml BID SEBASTIAN Administration Sodium Chloride 10 ml 02/28/19 19:44 Sodium Chloride Flush Syringe 10 Ml IV PRN PRN LINE FLUSH Nutrition/Malnutrition Assess - Dietary Evaluation Nutrition/Malnutrition Findings: Nutrition Notes Start: 03/01/19 10:49 Freq: Status: Active Protocol: Document 03/03/19 11:10 DW (Rec: 03/03/19 11:58 DW [id number]) Co-Sign 03/03/19 11:10 LP Nutrition Notes Initial or Follow up Reassessment Current Diagnosis COPD,Hypertension,Respiratory Failure Other Pertinent Diagnosis CHF, SOB, Anxiety Current Diet Regular Labs/Tests Glu: 132 Na: 136 BUN; 36 Pertinent Medications Reviewed Height 5 ft 2 in Weight 58.967 kg Usual Body Weight 65 kg [place] Body Weight (kg) 50.00 BMI 23.8 Weight change and time frame 11% in 2 mo Subjective/Other Information Pt stated that she eats 100% of her meals depending on what is on the tray. Pt gave array of food preferences and stated she does not like milky drinks so she has not been drinking ONS, pt requested Ensure Clear [place]. Pt stated that she sometimes feels a pain in her chest after having a meal in bed, writter recommended eating at table or putting pillows behind her back so she is in an upright position while eating. Pt also stated that she drinks a lot of fluids d/t feeling thirsty, leidyitter recommened limiting fluids to 1.5 L/day and sucking on hard candy if feeling thirsty. Pt stated she has changed her meal prepping techniques and does no add salt to foods. Burn Absent Trauma Absent GI Symptoms None Food Allergy Yes Minimum of two criteria Yes Interpretation of Weight Loss (severe) >7.5% in 3 months Muscle Mass Mild Depletion (non-severe) #2 Nutrition Diagnosis Malnutrition Etiology poor appetite and decreased intake DIRECTOR OF GUIDANCE As Evidenced by Signs and Symptoms temporal and clavicle wasting and 11% wt loss in 2 mo #1 Nutrition Diagnosis Predicted suboptimal energy intake As Evidenced by Signs and Symptoms Pt not eating d/t food preferences Diagnosis Progress(for reassessment Resolved documentation) Is patient on ventilator? No Is Patient Ambulatory and/or Out of Bed No REE-([facility]-confined to bed) 1334.652 Kcal/Kg value to use for calculation 30 Approximate Energy Requirements Using 1769 kcal/Kg Calculation Used for Recommendations Kcal/kg Additional Notes PRO needs: 71-88g (1.2-1.5 g/ kg) Fluid needs: 1.5 mL/day Nutrition Intervention Change Diet Order: Continue current diet Add Supplement/Snack (indicate name/kcal Change to Ensure Clear [place] /protein ) BID Provides kCal: 480 Provides Protein (gm) 16 Goal #1 Meet atleast 75% of energy and PRO needs via PO/ONS Goal #2 Wt maintaince/gain Anticipated Discharge Needs: Regular diet and ONS daily Follow-Up By: 03/06/19 Additional Comments FU PO/ONS intake
[2019-03-04] MEDS: DUONEB *Not for PRN Use IH SCH ×6 (00:39→19:48)
[2019-03-04] MEDS: SOLU-Medrol IV SCH ×4 (05:06→21:08)
[2019-03-04] MEDS: APRESOLINE PO SCH ×2 (05:06→14:40)
[2019-03-04] MEDS: PULMICORT IH SCH ×2 (08:33→19:48)
[2019-03-04] MEDS: ROCEPHIN/NS 1 GM/50 ML 1 GM/50 ML BAG IV SCH (09:23)
[2019-03-04] MEDS: ZITHROMAX 500 MG in NACL 0.9% 250ML 250 ML IV SCH (10:35)
[2019-03-04] MEDS: COREG PO SCH ×2 (10:36→21:10)
[2019-03-04] MEDS: XANAX PO SCH ×2 (10:36→21:09)
[2019-03-04] MEDS: MUCINEX ER PO SCH ×2 (10:36→21:09)
[2019-03-04] MEDS: LOVENOX SUB-Q SCH (10:36)
[2019-03-04] MEDS: COLACE PO SCH (10:36)
[2019-03-04] MEDS: SODIUM CHLORIDE FLUSH SYRINGE 10 ML IV SCH ×2 (10:37→21:17)
[2019-03-04] MEDS: ZESTRIL PO SCH (10:37)
--- NOTE | 2019-03-04 10:56 | Progress Note ---
Assessment and Plan Assessment and plan: Patient is a 63 yo woman with a history of anxiety, chronic respiratory failure on 3L on home O2 due to end stage COPD, CHF EF 40-45%, trace AR who presented with SOB and productive cough. 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 Acute Exacerbation COPD: wean High Flow nasal canula if possible Acute on chronic hypoxic respiratory failure with hypercapnia: treat with IV steriods, abx, nebs Hypertension: Continue to monitor BP, Resume home antihypertensive meds to optimize BP Hypernatremia: treat with free water, monitor bmp closely Anxiety-Continue Xanax DVT PPX-on Lovenox Disposition: continue inpatient care, downgrade to medsurg with remote and continous pulse ox; Trilogy/NIV recommended but I do not know how feasilbe that will be History Interval history: Patient was seen and examined. Follow-up on current diagnosis of COPD. No overnight events reported to me. Patient denies any chest pain, nausea/vomiting or severe headaches. Imaging, nursing note, chart, labs and old chart reviewed. Discussed with patient. Down to 40% high flow O2 Hospitalist Physical - Physical exam Narrative exam: Gen: thin frail, ill appearing, Awake, Alert, Orientated x 3, on BIPAP HEENT: NCAT, EOMI, PERRL, OP Clear Neck: supple, no adenopathy, no thyromegaly, no JVD CVS/Heart: RRR, normal S1S2, pulses present bilaterally Chest/Lungs: Diminished BS bilaterally, Symmetrical chest expansion, good air entry bilaterally GI/Abdomen: soft, NTND, good bowel sounds, no guarding or rebound /Bladder: no suprapubic tenderness, no CVA or paraspinal tenderness Extermity/Skin: no c/c/e, no obvious rash MSK: FROM x 4 Neuro: CN 2-12 grossly intact, no new focal deficits Psych: calm - Constitutional Vitals: Temp Pulse Resp BP Pulse Ox 97.3 F L 92 H 20 134/83 97 03/04/19 04:00 03/04/19 10:37 03/04/19 08:33 03/04/19 10:37 03/04/19 08:33 Results - Labs CBC & Chem 7: 03/02/19 04:29 03/02/19 04:29 Labs: Laboratory Last Values WBC 13.2 K/mm3 (4.5-11.0) H 03/02/19 04:29 RBC 3.58 M/mm3 (3.65-5.03) L 03/02/19 04:29 Hgb 11.3 gm/dl (10.1-14.3) 03/02/19 04:29 Hct 36.2 % (30.3-42.9) D 03/02/19 04:29 MCV 101 fl (79-97) H 03/02/19 04:29 MCH 32 pg (28-32) 03/02/19 04:29 MCHC 31 % (30-34) 03/02/19 04:29 RDW 14.0 % (13.2-15.2) 03/02/19 04:29 Plt Count 199 K/mm3 (140-440) 03/02/19 04:29 Lymph % (Auto) 16.9 % (13.4-35.0) 02/28/19 17:03 [place] % (Auto) 6.9 % (0.0-7.3) 02/28/19 17:03 Eos % (Auto) 0.5 % (0.0-4.3) 02/28/19 17:03 Baso % (Auto) 0.1 % (0.0-1.8) 02/28/19 17:03 Lymph # 1.4 K/mm3 (1.2-5.4) 02/28/19 17:03 [place] # 0.6 K/mm3 (0.0-0.8) 02/28/19 17:03 Eos # 0.0 K/mm3 (0.0-0.4) 02/28/19 17:03 Baso # 0.0 K/mm3 (0.0-0.1) 02/28/19 17:03 Add Manual Diff Complete 03/01/19 04:20 Total Counted 100 03/01/19 04:20 Seg Neutrophils % Professor Of Astronomy 03/01/19 04:20 Seg Neuts % (Manual) 96.0 % (40.0-70.0) H 03/01/19 04:20 0 % 03/01/19 04:20 4.0 % (13.4-35.0) L 03/01/19 04:20 Reactive Lymphs % (Man) 0 % 03/01/19 04:20 0 % (0.0-7.3) 03/01/19 04:20 0 % (0.0-4.3) 03/01/19 04:20 0 % (0.0-1.8) 03/01/19 04:20 0 % 03/01/19 04:20 0 % 03/01/19 04:20 0 % 03/01/19 04:20 0 % 03/01/19 04:20 Nucleated RBC % Not Reportable 03/01/19 04:20 Seg Neutrophils # 6.2 K/mm3 (1.8-7.7) 02/28/19 17:03 Seg Neutrophils # Man 5.2 K/mm3 (1.8-7.7) 03/01/19 04:20 Band Neutrophils # 0.0 K/mm3 03/01/19 04:20 0.2 K/mm3 (1.2-5.4) L 03/01/19 04:20 Abs React Lymphs (Man) 0.0 K/mm3 03/01/19 04:20 0.0 K/mm3 (0.0-0.8) 03/01/19 04:20 0.0 K/mm3 (0.0-0.4) 03/01/19 04:20 0.0 K/mm3 (0.0-0.1) 03/01/19 04:20 0.0 K/mm3 03/01/19 04:20 0.0 K/mm3 03/01/19 04:20 0.0 K/mm3 03/01/19 04:20 Blast Cells # 0.0 K/mm3 03/01/19 04:20 WBC Morphology Not Reportable 03/01/19 04:20 Hypersegmented Neuts Not Reportable 03/01/19 04:20 Hyposegmented Neuts Not Reportable 03/01/19 04:20 Hypogranular Neuts Not Reportable 03/01/19 04:20 Not Reportable 03/01/19 04:20 Not Reportable 03/01/19 04:20 Not Reportable 03/01/19 04:20 Not Reportable 03/01/19 04:20 Not Reportable 03/01/19 04:20 Not Reportable 03/01/19 04:20 Consistent w auto 03/01/19 04:20 Not Reportable 03/01/19 04:20 Plt Clumps, EDTA Not Reportable 03/01/19 04:20 Not Reportable 03/01/19 04:20 Not Reportable 03/01/19 04:20 Not Reportable 03/01/19 04:20 Plt Morphology Comment Not Reportable 03/01/19 04:20 RBC Morphology Not Reportable 03/01/19 04:20 Dimorphic RBCs Not Reportable 03/01/19 04:20 Not Reportable 03/01/19 04:20 Not Reportable 03/01/19 04:20 Not Reportable 03/01/19 04:20 Not Reportable 03/01/19 04:20 Not Reportable 03/01/19 04:20 Rare 03/01/19 04:20 Not Reportable 03/01/19 04:20 Not Reportable 03/01/19 04:20 Not Reportable 03/01/19 04:20 Not Reportable 03/01/19 04:20 Not Reportable 03/01/19 04:20 Not Reportable 03/01/19 04:20 2+ 03/01/19 04:20 Not Reportable 03/01/19 04:20 Not Reportable 03/01/19 04:20 Not Reportable 03/01/19 04:20 Not Reportable 03/01/19 04:20 Not Reportable 03/01/19 04:20 Not Reportable 03/01/19 04:20 Not Reportable 03/01/19 04:20 Acanthocytes (Spur) Not Reportable 03/01/19 04:20 Rouleaux Not Reportable 03/01/19 04:20 Not Reportable 03/01/19 04:20 Not Reportable 03/01/19 04:20 Not Reportable 03/01/19 04:20 Not Reportable 03/01/19 04:20 Hem Pathologist Commnt No 03/01/19 04:20 POC ABG pH 7.346 (7.35-7.45) L 03/02/19 01:58 ABG pH 7.226 pH Units (7.350-7.450) L 02/28/19 22:00 ABG pCO2 122.8 mm Hg 02/28/19 22:00 POC ABG pO2 82 (80-105) 03/02/19 01:58 ABG pO2 71.7 mm Hg (80.0-90.0) L 02/28/19 22:00 POC ABG HCO3 47.5 (22-26 mml/L) 03/02/19 01:58 ABG HCO3 49.8 mmol/L (20.0-26.0) H 02/28/19 22:00 POC ABG Total CO2 > 50 (23-27mmol/L) 03/02/19 01:58 POC ABG O2 Sat 94 03/02/19 01:58 ABG O2 Saturation 94.5 % (95.0-99.0) L 02/28/19 22:00 ABG O2 Content 16.9 (0.0-44) 02/28/19 22:00 POC ABG Base Excess 22 ((-2) - (+3)mmol/L) 03/02/19 01:58 ABG Base Excess 16.6 mmol/L (-2.0-3.0) H 02/28/19 22:00 ABG Hemoglobin 13.2 gm/dl (12.0-16.0) 02/28/19 22:00 ABG Carboxyhemoglobin 3.0 % (0.0-5.0) 02/28/19 22:00 ABG Methemoglobin 0.7 % (0.0-1.5) 02/28/19 22:00 91.0 % (95.0-99.0) L 02/28/19 22:00 40 % 03/02/19 01:58 Sodium 136 mmol/L (137-145) L D 03/02/19 04:29 Potassium 4.3 mmol/L (3.6-5.0) 03/02/19 04:29 Chloride 89.3 mmol/L (98-107) L 03/02/19 04:29 Carbon Dioxide 41 mmol/L (22-30) H* 03/02/19 04:29 10 mmol/L 03/02/19 04:29 BUN 36 mg/dL (7-17) H 03/02/19 04:29 0.7 mg/dL (0.7-1.2) D 03/02/19 04:29 Estimated GFR > 60 ml/min 03/02/19 04:29 51 % 03/02/19 04:29 Glucose 132 mg/dL (65-100) H 03/02/19 04:29 POC Glucose 262 (70-105) H 03/01/19 20:33 Calcium 8.9 mg/dL (8.4-10.2) 03/02/19 04:29 < 0.010 ng/mL (0.00-0.029) 03/02/19 06:46 NT-Pro-B Natriuret Pep 54.75 pg/mL (0-900) 02/28/19 17:03 Active Medications - Current Medications Current Medications: Generic Name Dose Route Start Last Admin Trade Name Freq PRN Reason Stop Dose Admin Acetaminophen 650 mg 02/28/19 19:44 03/03/19 09:56 Tylenol PO 650 mg Q4H PRN Administration Pain MILD(1-3)/Fever >100.5/PÉREZ Albuterol 2.5 mg 03/01/19 08:24 Proventil IH Q4H PRN Shortness Of Breath Albuterol/Ipratropium 1 ampul 03/02/19 16:00 03/04/19 08:33 Duoneb *Not For Prn Use* IH 1 ampul Q4HRT SEBASTIAN Administration Alprazolam 0.25 mg 02/28/19 22:00 03/04/19 10:36 Xanax PO 0.25 mg BID SEBASTIAN Administration Budesonide 0.5 mg 02/28/19 20:00 03/04/19 08:33 Pulmicort IH 0.5 mg Q12HRT SEBASTIAN Administration Carvedilol 3.125 mg 03/01/19 22:00 03/04/19 10:36 Coreg PO 3.125 mg BID SEBASTIAN Administration Docusate Sodium 100 mg 02/28/19 22:00 03/04/19 10:36 Colace PO 100 mg BID SEBASTIAN Administration Enoxaparin Sodium 40 mg 03/01/19 10:00 03/04/19 10:36 Lovenox SUB-Q 40 mg QDAY SEBASTIAN Administration Guaifenesin 600 mg 02/28/19 22:00 03/04/19 10:36 Mucinex Er PO 600 mg BID SEBASTIAN Administration Hydralazine HCl 25 mg 02/28/19 22:00 03/04/19 05:06 Apresoline PO Not Given Q8HR SEBASTIAN Ceftriaxone Sodium 1 gm in 50 mls @ 100 mls/hr 03/01/19 10:00 03/04/19 09:23 Rocephin/Ns 1 Gm/50 Ml IV 100 mls/hr DAILY@0800 SEBASTIAN Administration Protocol Azithromycin 500 mg/ Sodium 250 mls @ 250 mls/hr 03/01/19 10:00 03/04/19 10:35 Chloride IV 250 mls/hr Q24HR SEBASTIAN Administration Protocol Lisinopril 5 mg 03/01/19 10:00 03/04/19 10:37 Zestril PO 5 mg QDAY SEBASTIAN Administration Methylprednisolone Sodium Succinate 60 mg 03/02/19 14:00 03/04/19 09:23 Solu-Medrol IV 60 mg Q6H SEBASTIAN Administration Montelukast Sodium 10 mg 02/28/19 22:00 03/03/19 21:59 Singulair PO 10 mg QHS SEBASTIAN Administration Ondansetron HCl 4 mg 02/28/19 19:44 Zofran IV Q8H PRN Nausea And Vomiting Quetiapine Fumarate 50 mg 02/28/19 22:00 03/03/19 21:58 Seroquel PO 50 mg QHS SEBASTIAN Administration Sodium Chloride 10 ml 02/28/19 22:00 03/04/19 10:37 Sodium Chloride Flush Syringe 10 Ml IV 10 ml BID SEBASTIAN Administration Sodium Chloride 10 ml 02/28/19 19:44 Sodium Chloride Flush Syringe 10 Ml IV PRN PRN LINE FLUSH Nutrition/Malnutrition Assess - Dietary Evaluation Nutrition/Malnutrition Findings: Nutrition Notes Start: 03/01/19 10:49 Freq: Status: Active Protocol: Document 03/03/19 11:10 DW (Rec: 03/03/19 11:58 DW [id number]) Co-Sign 03/03/19 11:10 LP Nutrition Notes Initial or Follow up Reassessment Current Diagnosis COPD,Hypertension,Respiratory Failure Other Pertinent Diagnosis CHF, SOB, Anxiety Current Diet Regular Labs/Tests Glu: 132 Na: 136 BUN; 36 Pertinent Medications Reviewed Height 5 ft 2 in Weight 58.967 kg Usual Body Weight 65 kg [place] Body Weight (kg) 50.00 BMI 23.8 Weight change and time frame 11% in 2 mo Subjective/Other Information Pt stated that she eats 100% of her meals depending on what is on the tray. Pt gave array of food preferences and stated she does not like milky drinks so she has not been drinking ONS, pt requested Ensure Clear [place]. Pt stated that she sometimes feels a pain in her chest after having a meal in bed, writter recommended eating at table or putting pillows behind her back so she is in an upright position while eating. Pt also stated that she drinks a lot of fluids d/t feeling thirsty, writter recommened limiting fluids to 1.5 L/day and sucking on hard candy if feeling thirsty. Pt stated she has changed her meal prepping techniques and does no add salt to foods. Burn Absent Trauma Absent GI Symptoms None Food Allergy Yes Minimum of two criteria Yes Interpretation of Weight Loss (severe) >7.5% in 3 months Muscle Mass Mild Depletion (non-severe) #2 Nutrition Diagnosis Malnutrition Etiology poor appetite and decreased intake STAFF RESPIRATORY THERAPIST As Evidenced by Signs and Symptoms temporal and clavicle wasting and 11% wt loss in 2 mo #1 Nutrition Diagnosis Predicted suboptimal energy intake As Evidenced by Signs and Symptoms Pt not eating d/t food preferences Diagnosis Progress(for reassessment Resolved documentation) Is patient on ventilator? No Is Patient Ambulatory and/or Out of Bed No REE-([facility]-confined to bed) 1334.652 Kcal/Kg value to use for calculation 30 Approximate Energy Requirements Using 1769 kcal/Kg Calculation Used for Recommendations Kcal/kg Additional Notes PRO needs: 71-88g (1.2-1.5 g/ kg) Fluid needs: 1.5 mL/day Nutrition Intervention Change Diet Order: Continue current diet Add Supplement/Snack (indicate name/kcal Change to Ensure [place] /protein ) BID Provides kCal: 480 Provides Protein (gm) 16 Goal #1 Meet atleast 75% of energy and PRO needs via PO/ONS Goal #2 Wt maintaince/gain Anticipated Discharge Needs: Regular diet and ONS daily Follow-Up By: 03/06/19 Additional Comments FU PO/ONS intake
--- NOTE | 2019-03-04 12:37 | Progress Note ---
Assessment and Plan Imp: 1. Centrilobular emphysema 2. COPD exac. 3. A/C respiratory failure, hypoxia/hypercapnea 4. Acute bronchitis 5. Anxiety Rec: 1. Cont. Solumedrol, ABX, nebs 2. Goal sats 88-94% at all times; wean HFNC as tolerated 3. Patient lost her BIPAP machine a couple of months ago; she will not survive without NIPPV; I recommend trying to get Trilogy/NIV arranged prior to d/c Subjective Date of service: 03/04/19 Principal diagnosis: COPD Interval history: Patient report breathing much better. On high flow nasal cannula at 40%. Used BiPAP during the night. Oxygen saturation 97% Objective Vital Signs - 12hr 03/04/19 03/04/19 03/04/19 01:00 01:31 02:00 Temperature Pulse Rate 85 76 76 Pulse Rate [ Anterior Bilateral Throughout] Pulse Rate [ From Monitor] Respiratory 21 20 24 Rate Respiratory Rate [Anterior Bilateral Throughout] Blood Pressure 111/50 111/50 122/53 O2 Sat by Pulse 97 99 98 Oximetry 03/04/19 03/04/19 03/04/19 02:31 03:00 03:31 Temperature Pulse Rate 74 69 68 Pulse Rate [ Anterior Bilateral Throughout] Pulse Rate [ From Monitor] Respiratory 17 13 20 Rate Respiratory Rate [Anterior Bilateral Throughout] Blood Pressure 122/53 116/53 116/53 O2 Sat by Pulse 100 98 100 Oximetry 03/04/19 03/04/19 03/04/19 03:57 04:00 04:31 Temperature 97.3 F L 97.3 F L Pulse Rate 65 65 Pulse Rate [ Anterior Bilateral Throughout] Pulse Rate [ 69 From Monitor] Respiratory 14 20 Rate Respiratory Rate [Anterior Bilateral Throughout] Blood Pressure 109/54 116/53 O2 Sat by Pulse 99 100 Oximetry 03/04/19 03/04/19 03/04/19 05:00 05:06 05:31 Temperature Pulse Rate 69 68 63 Pulse Rate [ Anterior Bilateral Throughout] Pulse Rate [ From Monitor] Respiratory 21 16 Rate Respiratory Rate [Anterior Bilateral Throughout] Blood Pressure 107/51 107/51 107/51 O2 Sat by Pulse 97 100 Oximetry 03/04/19 03/04/19 03/04/19 06:01 06:30 07:00 Temperature Pulse Rate 71 84 82 Pulse Rate [ Anterior Bilateral Throughout] Pulse Rate [ From Monitor] Respiratory 15 21 21 Rate Respiratory Rate [Anterior Bilateral Throughout] Blood Pressure 107/51 123/61 121/55 O2 Sat by Pulse 100 99 97 Oximetry 03/04/19 03/04/19 03/04/19 08:00 08:33 09:00 Temperature 98 F Pulse Rate 81 99 H Pulse Rate [ 97 H Anterior Bilateral Throughout] Pulse Rate [ 81 From Monitor] Respiratory 22 31 H Rate Respiratory 20 Rate [Anterior Bilateral Throughout] Blood Pressure 122/52 140/60 O2 Sat by Pulse 94 97 95 Oximetry 03/04/19 03/04/19 03/04/19 10:00 10:36 10:37 Temperature Pulse Rate 95 H 92 H 92 H Pulse Rate [ Anterior Bilateral Throughout] Pulse Rate [ From Monitor] Respiratory 25 H Rate Respiratory Rate [Anterior Bilateral Throughout] Blood Pressure 134/53 134/53 134/83 O2 Sat by Pulse 95 Oximetry 03/04/19 11:00 Temperature Pulse Rate 106 H Pulse Rate [ Anterior Bilateral Throughout] Pulse Rate [ From Monitor] Respiratory 18 Rate Respiratory Rate [Anterior Bilateral Throughout] Blood Pressure 132/56 O2 Sat by Pulse 94 Oximetry Constitutional: no acute distress, alert Eyes: non-icteric ENT: oropharynx moist Neck: supple Ascultation: Bilateral: diminished breath sounds, wheezes, other (Prolonged expiratory phase.) Percussion: Bilateral: not dull Cardiovascular: regular rate and rhythm Gastrointestinal: normoactive bowel sounds, soft, non-tender, non-distended Integumentary: normal Extremities: no cyanosis, no edema Neurologic: normal mental status, non-focal exam, pupils equal and round Psychiatric: other (Sleeping at this time.) CBC and BMP: 03/02/19 04:29 03/02/19 04:29 ABG, PT/INR, D-dimer: ABG POC ABG pH 7.346 (7.35-7.45) L 03/02/19 01:58 ABG pH 7.226 pH Units (7.350-7.450) L 02/28/19 22:00 ABG pCO2 122.8 mm Hg 02/28/19 22:00 POC ABG pO2 82 (80-105) 03/02/19 01:58 ABG pO2 71.7 mm Hg (80.0-90.0) L 02/28/19 22:00 POC ABG HCO3 47.5 (22-26 mml/L) 03/02/19 01:58 POC ABG Total CO2 > 50 (23-27mmol/L) 03/02/19 01:58 POC ABG O2 Sat 94 03/02/19 01:58 ABG O2 Saturation 94.5 % (95.0-99.0) L 02/28/19 22:00 Abnormal lab findings: Abnormal Labs 02/28/19 02/28/19 02/28/19 17:03 17:10 18:53 WBC RBC MCV 104 H MCH Seg Neutrophils % 75.6 H Seg Neuts % (Manual) Lymphocytes % (Manual) Lymphocytes # (Manual) POC ABG pH 7.174 L ABG pH POC ABG pO2 69 L ABG pO2 ABG HCO3 ABG O2 Saturation ABG Base Excess Oxyhemoglobin Sodium 146 H Chloride 94.8 L Carbon Dioxide 49 H* BUN Creatinine 0.3 L Glucose POC Glucose 02/28/19 03/01/19 03/01/19 22:00 04:20 04:20 WBC RBC MCV 105 H MCH 33 H Seg Neutrophils % Seg Neuts % (Manual) 96.0 H Lymphocytes % (Manual) 4.0 L Lymphocytes # (Manual) 0.2 L POC ABG pH ABG pH 7.226 L POC ABG pO2 ABG pO2 71.7 L ABG HCO3 49.8 H ABG O2 Saturation 94.5 L ABG Base Excess 16.6 H Oxyhemoglobin 91.0 L Sodium 147 H Chloride 93.8 L Carbon Dioxide 43 H* BUN 19 H Creatinine 0.4 L Glucose 124 H POC Glucose 03/01/19 03/01/19 03/01/19 08:36 16:31 20:33 WBC RBC MCV MCH Seg Neutrophils % Seg Neuts % (Manual) Lymphocytes % (Manual) Lymphocytes # (Manual) POC ABG pH 7.261 L 7.249 L ABG pH POC ABG pO2 108 H ABG pO2 ABG HCO3 ABG O2 Saturation ABG Base Excess Oxyhemoglobin Sodium Chloride Carbon Dioxide BUN Creatinine Glucose POC Glucose 262 H 03/02/19 03/02/19 03/02/19 01:58 04:29 04:29 WBC 13.2 H RBC 3.58 L MCV 101 H MCH Seg Neutrophils % Seg Neuts % (Manual) Lymphocytes % (Manual) Lymphocytes # (Manual) POC ABG pH 7.346 L ABG pH POC ABG pO2 ABG pO2 ABG HCO3 ABG O2 Saturation ABG Base Excess Oxyhemoglobin Sodium 136 L D Chloride 89.3 L Carbon Dioxide 41 H* BUN 36 H Creatinine Glucose 132 H POC Glucose
[2019-03-04] MEDS: TYLENOL PO PRN ×2 (14:59→21:14)
--- NOTE | 2019-03-04 16:44 | Progress Note ---
Assessment and Plan 63-year-old -[place] female who is a former smoker with history of anxiety, hypertension, COPD, and chronic hypoxic respiratory failure who presents to [facility] ED with complaints of shortness of breath and productive cough. Pt states that her symptoms began approximately 3 days ago. She started experiencing increased shortness of breath despite increasing her supplemental oxygen from 2L to 3L continuously. Pt also complains of clear productive cough for the past 3 days. Says that she attempted to use her nebulizer treatment with no relief. 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 History of COPD and Hypertension. Patient allergic to Peanuts, Ipatropium, Shellfish. Patient worked as [employer]. Patient is , children one. ABG POC ABG pH 7.249 (7.35-7.45) L 03/01/19 16:31 ABG pH 7.226 pH Units (7.350-7.450) L 02/28/19 22:00 ABG pCO2 122.8 mm Hg 02/28/19 22:00 POC ABG pO2 103 (80-105) 03/01/19 16:31 ABG pO2 71.7 mm Hg (80.0-90.0) L 02/28/19 22:00 POC ABG HCO3 44.7 (22-26 mml/L) 03/01/19 16:31 POC ABG Total CO2 48 (23-27mmol/L) 03/01/19 16:31 POC ABG O2 Sat 96 03/01/19 16:31 ABG O2 Saturation 94.5 % (95.0-99.0) L 02/28/19 22:00 Patient presently resting on BIPAP 05/01, FIO2 30%. Repeating blood gases. Patient presently on I/V solumedrol, Aerosolized bronchodilators and I/v A ntibiotics Zithromax and ceftriaxone. Patient is on S/C Lovenox . Recommend GI prophylaxis also. 03/04/19 Patient alert, awake and resting on Vapotherm, FIO2 40%. Patient says breathing better.Patient afebrile and has mild leukocytosis. - Patient Problems (1) Acute and chronic respiratory failure with hypercapnia Current Visit: Yes Status: Acute Plan to address problem: Continue Vapotherm Continue albuterol/atrovent aerosol treatments q 6 hours. Continue I/V solumedrol Continue Zithromax and ceftriaxone Continue S/C Lovenox. Recommend GI prophylaxis. (2) COPD exacerbation Current Visit: Yes Status: Acute Plan to address problem: Continue Vapotherm Continue albuterol/atrovent aerosol treatments q 6 hours. Continue I/V solumedrol Continue Zithromax and ceftriaxone Continue S/C Lovenox. Recommend GI prophylaxis PFTs as out patient. (3) Acute bronchitis Current Visit: No Status: Acute Plan to address problem: Patient is on ceftriaxone and Zithromax. (4) GERD (gastroesophageal reflux disease) Current Visit: No Status: Acute Qualifiers: Esophagitis presence: without esophagitis Qualified Code(s): K21.9 - Gastro-esophageal reflux disease without esophagitis Plan to address problem: Recommend PPIs. (5) HTN (hypertension) Current Visit: No Status: Acute Qualifiers: Hypertension type: essential hypertension Qualified Code(s): I10 - Essential (primary) hypertension Plan to address problem: Management as per primary care. Subjective Date of service: 03/04/19 Principal diagnosis: COPD Interval history: Patient alert, awake and resting on Vapotherm, FIO2 40%. Patient says breathing better.Patient afebrile and has mild leukocytosis. Objective Vital Signs - 12hr 03/04/19 03/04/19 03/04/19 05:00 05:06 05:31 Temperature Pulse Rate 69 68 63 Pulse Rate [ Anterior Bilateral Throughout] Pulse Rate [ From Monitor] Respiratory 21 16 Rate Respiratory Rate [Anterior Bilateral Throughout] Blood Pressure 107/51 107/51 107/51 Blood Pressure [Right] O2 Sat by Pulse 97 100 Oximetry 03/04/19 03/04/19 03/04/19 06:01 06:30 07:00 Temperature Pulse Rate 71 84 82 Pulse Rate [ Anterior Bilateral Throughout] Pulse Rate [ From Monitor] Respiratory 15 21 21 Rate Respiratory Rate [Anterior Bilateral Throughout] Blood Pressure 107/51 123/61 121/55 Blood Pressure [Right] O2 Sat by Pulse 100 99 97 Oximetry 03/04/19 03/04/19 03/04/19 08:00 08:33 09:00 Temperature 98 F Pulse Rate 81 99 H Pulse Rate [ 97 H Anterior Bilateral Throughout] Pulse Rate [ 81 From Monitor] Respiratory 22 31 H Rate Respiratory 20 Rate [Anterior Bilateral Throughout] Blood Pressure 122/52 140/60 Blood Pressure [Right] O2 Sat by Pulse 94 97 95 Oximetry 03/04/19 03/04/19 03/04/19 10:00 10:36 10:37 Temperature Pulse Rate 95 H 92 H 92 H Pulse Rate [ Anterior Bilateral Throughout] Pulse Rate [ From Monitor] Respiratory 25 H Rate Respiratory Rate [Anterior Bilateral Throughout] Blood Pressure 134/53 134/53 134/83 Blood Pressure [Right] O2 Sat by Pulse 97 Oximetry 03/04/19 03/04/19 03/04/19 11:00 12:00 12:18 Temperature 98.2 F Pulse Rate 106 H 96 H Pulse Rate [ 101 H Anterior Bilateral Throughout] Pulse Rate [ 87 From Monitor] Respiratory 18 12 Rate Respiratory 20 Rate [Anterior Bilateral Throughout] Blood Pressure 132/56 140/56 Blood Pressure [Right] O2 Sat by Pulse 94 95 Oximetry 03/04/19 03/04/19 03/04/19 13:00 13:10 13:20 Temperature Pulse Rate 99 H 107 H 103 H Pulse Rate [ Anterior Bilateral Throughout] Pulse Rate [ From Monitor] Respiratory 24 23 26 H Rate Respiratory Rate [Anterior Bilateral Throughout] Blood Pressure 132/60 132/60 132/60 Blood Pressure [Right] O2 Sat by Pulse 95 97 97 Oximetry 03/04/19 03/04/19 03/04/19 13:30 13:55 13:56 Temperature 98.2 F Pulse Rate 102 H 97 H 100 H Pulse Rate [ Anterior Bilateral Throughout] Pulse Rate [ From Monitor] Respiratory 20 18 Rate Respiratory Rate [Anterior Bilateral Throughout] Blood Pressure 132/60 116/59 Blood Pressure 116/59 [Right] O2 Sat by Pulse 97 94 94 Oximetry 03/04/19 14:40 Temperature Pulse Rate 100 H Pulse Rate [ Anterior Bilateral Throughout] Pulse Rate [ From Monitor] Respiratory Rate Respiratory Rate [Anterior Bilateral Throughout] Blood Pressure 116/59 Blood Pressure [Right] O2 Sat by Pulse Oximetry Constitutional: no acute distress, alert Eyes: non-icteric ENT: oropharynx moist Neck: supple Ascultation: Bilateral: diminished breath sounds, wheezes, other (Prolonged expiratory phase.) Percussion: Bilateral: not dull Cardiovascular: regular rate and rhythm Gastrointestinal: normoactive bowel sounds, soft, non-tender, non-distended Integumentary: normal Extremities: no cyanosis, no edema Neurologic: normal mental status, non-focal exam, pupils equal and round Psychiatric: other (Sleeping at this time.) CBC and BMP: 03/02/19 04:29 03/02/19 04:29 ABG, PT/INR, D-dimer: ABG POC ABG pH 7.346 (7.35-7.45) L 03/02/19 01:58 ABG pH 7.226 pH Units (7.350-7.450) L 02/28/19 22:00 ABG pCO2 122.8 mm Hg 02/28/19 22:00 POC ABG pO2 82 (80-105) 03/02/19 01:58 ABG pO2 71.7 mm Hg (80.0-90.0) L 02/28/19 22:00 POC ABG HCO3 47.5 (22-26 mml/L) 03/02/19 01:58 POC ABG Total CO2 > 50 (23-27mmol/L) 03/02/19 01:58 POC ABG O2 Sat 94 03/02/19 01:58 ABG O2 Saturation 94.5 % (95.0-99.0) L 02/28/19 22:00 Abnormal lab findings: Abnormal Labs 02/28/19 02/28/19 02/28/19 17:03 17:10 18:53 WBC RBC MCV 104 H MCH Seg Neutrophils % 75.6 H Seg Neuts % (Manual) Lymphocytes % (Manual) Lymphocytes # (Manual) POC ABG pH 7.174 L ABG pH POC ABG pO2 69 L ABG pO2 ABG HCO3 ABG O2 Saturation ABG Base Excess Oxyhemoglobin Sodium 146 H Chloride 94.8 L Carbon Dioxide 49 H* BUN Creatinine 0.3 L Glucose POC Glucose 02/28/19 03/01/19 03/01/19 22:00 04:20 04:20 WBC RBC MCV 105 H MCH 33 H Seg Neutrophils % Seg Neuts % (Manual) 96.0 H Lymphocytes % (Manual) 4.0 L Lymphocytes # (Manual) 0.2 L POC ABG pH ABG pH 7.226 L POC ABG pO2 ABG pO2 71.7 L ABG HCO3 49.8 H ABG O2 Saturation 94.5 L ABG Base Excess 16.6 H Oxyhemoglobin 91.0 L Sodium 147 H Chloride 93.8 L Carbon Dioxide 43 H* BUN 19 H Creatinine 0.4 L Glucose 124 H POC Glucose 03/01/19 03/01/19 03/01/19 08:36 16:31 20:33 WBC RBC MCV MCH Seg Neutrophils % Seg Neuts % (Manual) Lymphocytes % (Manual) Lymphocytes # (Manual) POC ABG pH 7.261 L 7.249 L ABG pH POC ABG pO2 108 H ABG pO2 ABG HCO3 ABG O2 Saturation ABG Base Excess Oxyhemoglobin Sodium Chloride Carbon Dioxide BUN Creatinine Glucose POC Glucose 262 H 03/02/19 03/02/19 03/02/19 01:58 04:29 04:29 WBC 13.2 H RBC 3.58 L MCV 101 H MCH Seg Neutrophils % Seg Neuts % (Manual) Lymphocytes % (Manual) Lymphocytes # (Manual) POC ABG pH 7.346 L ABG pH POC ABG pO2 ABG pO2 ABG HCO3 ABG O2 Saturation ABG Base Excess Oxyhemoglobin Sodium 136 L D Chloride 89.3 L Carbon Dioxide 41 H* BUN 36 H Creatinine Glucose 132 H POC Glucose
[2019-03-04] MEDS: SINGULAIR PO SCH (21:08)
[2019-03-05] MEDS: COLACE PO SCH ×3 (00:27→23:53)
[2019-03-05] MEDS: APRESOLINE PO SCH ×4 (01:29→23:51)
[2019-03-05] MEDS: DUONEB *Not for PRN Use IH SCH ×6 (01:47→21:06)
[2019-03-05] MEDS: SOLU-Medrol IV SCH ×4 (02:13→21:37)
[2019-03-05] MEDS: TYLENOL PO PRN (10:18)
[2019-03-05] MEDS: XANAX PO SCH ×2 (10:19→23:52)
[2019-03-05] MEDS: COREG PO SCH ×2 (10:19→23:52)
[2019-03-05] MEDS: MUCINEX ER PO SCH ×2 (10:19→23:50)
[2019-03-05] MEDS: ZESTRIL PO SCH (10:20)
[2019-03-05] MEDS: LOVENOX SUB-Q SCH (10:20)
[2019-03-05] MEDS: SODIUM CHLORIDE FLUSH SYRINGE 10 ML IV SCH ×2 (10:20→23:52)
[2019-03-05] MEDS: ZITHROMAX 500 MG in NACL 0.9% 250ML 250 ML IV SCH (10:20)
--- NOTE | 2019-03-05 10:37 | Progress Note ---
Assessment and Plan Assessment and plan: Patient is a 63 yo woman with a history of anxiety, chronic respiratory failure on 3L on home O2 due to end stage COPD, CHF EF 40-45%, trace AR who presented with SOB and productive cough. 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 Acute Exacerbation COPD: wean High Flow nasal canula if possible Acute on chronic hypoxic respiratory failure with hypercapnia: treat with IV steriods, abx, nebs Hypertension: Continue to monitor BP, Resume home antihypertensive meds to optimize BP Hypernatremia: treat with free water, monitor bmp closely Anxiety-Continue Xanax DVT PPX-on Lovenox Disposition: continue inpatient care, downgrade to medsurg with remote and continous pulse ox; Trilogy/NIV recommended but I do not know how feasilbe that will be History Interval history: Patient was seen and examined. Follow-up on current diagnosis of COPD. No overnight events reported to me. Patient denies any chest pain, nausea/vomiting or severe headaches. Imaging, nursing note, chart, labs and old chart reviewed. Discussed with patient. Down to 40% high flow O2 Hospitalist Physical - Physical exam Narrative exam: Gen: thin frail, ill appearing, Awake, Alert, Orientated x 3, on BIPAP HEENT: NCAT, EOMI, PERRL, OP Clear Neck: supple, no adenopathy, no thyromegaly, no JVD CVS/Heart: RRR, normal S1S2, pulses present bilaterally Chest/Lungs: Diminished BS bilaterally, Symmetrical chest expansion, good air entry bilaterally GI/Abdomen: soft, NTND, good bowel sounds, no guarding or rebound /Bladder: no suprapubic tenderness, no CVA or paraspinal tenderness Extermity/Skin: no c/c/e, no obvious rash MSK: FROM x 4 Neuro: CN 2-12 grossly intact, no new focal deficits Psych: calm - Constitutional Vitals: Temp Pulse Resp BP Pulse Ox 98.8 F 65 20 108/59 98 03/05/19 05:06 03/05/19 05:19 03/05/19 05:06 03/05/19 05:19 03/05/19 05:06 Results - Labs CBC & Chem 7: 03/02/19 04:29 03/02/19 04:29 Labs: Laboratory Last Values WBC 13.2 K/mm3 (4.5-11.0) H 03/02/19 04:29 RBC 3.58 M/mm3 (3.65-5.03) L 03/02/19 04:29 Hgb 11.3 gm/dl (10.1-14.3) 03/02/19 04:29 Hct 36.2 % (30.3-42.9) D 03/02/19 04:29 MCV 101 fl (79-97) H 03/02/19 04:29 MCH 32 pg (28-32) 03/02/19 04:29 MCHC 31 % (30-34) 03/02/19 04:29 RDW 14.0 % (13.2-15.2) 03/02/19 04:29 Plt Count 199 K/mm3 (140-440) 03/02/19 04:29 Lymph % (Auto) 16.9 % (13.4-35.0) 02/28/19 17:03 [place] % (Auto) 6.9 % (0.0-7.3) 02/28/19 17:03 Eos % (Auto) 0.5 % (0.0-4.3) 02/28/19 17:03 Baso % (Auto) 0.1 % (0.0-1.8) 02/28/19 17:03 Lymph # 1.4 K/mm3 (1.2-5.4) 02/28/19 17:03 [place] # 0.6 K/mm3 (0.0-0.8) 02/28/19 17:03 Eos # 0.0 K/mm3 (0.0-0.4) 02/28/19 17:03 Baso # 0.0 K/mm3 (0.0-0.1) 02/28/19 17:03 Add Manual Diff Complete 03/01/19 04:20 Total Counted 100 03/01/19 04:20 Seg Neutrophils % Automotive Design Drafter 03/01/19 04:20 Seg Neuts % (Manual) 96.0 % (40.0-70.0) H 03/01/19 04:20 0 % 03/01/19 04:20 4.0 % (13.4-35.0) L 03/01/19 04:20 Reactive Lymphs % (Man) 0 % 03/01/19 04:20 0 % (0.0-7.3) 03/01/19 04:20 0 % (0.0-4.3) 03/01/19 04:20 0 % (0.0-1.8) 03/01/19 04:20 0 % 03/01/19 04:20 0 % 03/01/19 04:20 0 % 03/01/19 04:20 0 % 03/01/19 04:20 Nucleated RBC % Not Reportable 03/01/19 04:20 Seg Neutrophils # 6.2 K/mm3 (1.8-7.7) 02/28/19 17:03 Seg Neutrophils # Man 5.2 K/mm3 (1.8-7.7) 03/01/19 04:20 Band Neutrophils # 0.0 K/mm3 03/01/19 04:20 0.2 K/mm3 (1.2-5.4) L 03/01/19 04:20 Abs React Lymphs (Man) 0.0 K/mm3 03/01/19 04:20 0.0 K/mm3 (0.0-0.8) 03/01/19 04:20 0.0 K/mm3 (0.0-0.4) 03/01/19 04:20 0.0 K/mm3 (0.0-0.1) 03/01/19 04:20 0.0 K/mm3 03/01/19 04:20 0.0 K/mm3 03/01/19 04:20 0.0 K/mm3 03/01/19 04:20 Blast Cells # 0.0 K/mm3 03/01/19 04:20 WBC Morphology Not Reportable 03/01/19 04:20 Hypersegmented Neuts Not Reportable 03/01/19 04:20 Hyposegmented Neuts Not Reportable 03/01/19 04:20 Hypogranular Neuts Not Reportable 03/01/19 04:20 Not Reportable 03/01/19 04:20 Not Reportable 03/01/19 04:20 Not Reportable 03/01/19 04:20 Not Reportable 03/01/19 04:20 Not Reportable 03/01/19 04:20 Not Reportable 03/01/19 04:20 Consistent w auto 03/01/19 04:20 Not Reportable 03/01/19 04:20 Plt Clumps, EDTA Not Reportable 03/01/19 04:20 Not Reportable 03/01/19 04:20 Not Reportable 03/01/19 04:20 Not Reportable 03/01/19 04:20 Plt Morphology Comment Not Reportable 03/01/19 04:20 RBC Morphology Not Reportable 03/01/19 04:20 Dimorphic RBCs Not Reportable 03/01/19 04:20 Not Reportable 03/01/19 04:20 Not Reportable 03/01/19 04:20 Not Reportable 03/01/19 04:20 Not Reportable 03/01/19 04:20 Not Reportable 03/01/19 04:20 Rare 03/01/19 04:20 Not Reportable 03/01/19 04:20 Not Reportable 03/01/19 04:20 Not Reportable 03/01/19 04:20 Not Reportable 03/01/19 04:20 Not Reportable 03/01/19 04:20 Not Reportable 03/01/19 04:20 2+ 03/01/19 04:20 Not Reportable 03/01/19 04:20 Not Reportable 03/01/19 04:20 Not Reportable 03/01/19 04:20 Not Reportable 03/01/19 04:20 Not Reportable 03/01/19 04:20 Not Reportable 03/01/19 04:20 Not Reportable 03/01/19 04:20 Acanthocytes (Spur) Not Reportable 03/01/19 04:20 Rouleaux Not Reportable 03/01/19 04:20 Not Reportable 03/01/19 04:20 Not Reportable 03/01/19 04:20 Not Reportable 03/01/19 04:20 Not Reportable 03/01/19 04:20 Hem Pathologist Commnt No 03/01/19 04:20 POC ABG pH 7.346 (7.35-7.45) L 03/02/19 01:58 ABG pH 7.226 pH Units (7.350-7.450) L 02/28/19 22:00 ABG pCO2 122.8 mm Hg 02/28/19 22:00 POC ABG pO2 82 (80-105) 03/02/19 01:58 ABG pO2 71.7 mm Hg (80.0-90.0) L 02/28/19 22:00 POC ABG HCO3 47.5 (22-26 mml/L) 03/02/19 01:58 ABG HCO3 49.8 mmol/L (20.0-26.0) H 02/28/19 22:00 POC ABG Total CO2 > 50 (23-27mmol/L) 03/02/19 01:58 POC ABG O2 Sat 94 03/02/19 01:58 ABG O2 Saturation 94.5 % (95.0-99.0) L 02/28/19 22:00 ABG O2 Content 16.9 (0.0-44) 02/28/19 22:00 POC ABG Base Excess 22 ((-2) - (+3)mmol/L) 03/02/19 01:58 ABG Base Excess 16.6 mmol/L (-2.0-3.0) H 02/28/19 22:00 ABG Hemoglobin 13.2 gm/dl (12.0-16.0) 02/28/19 22:00 ABG Carboxyhemoglobin 3.0 % (0.0-5.0) 02/28/19 22:00 ABG Methemoglobin 0.7 % (0.0-1.5) 02/28/19 22:00 91.0 % (95.0-99.0) L 02/28/19 22:00 40 % 03/02/19 01:58 Sodium 136 mmol/L (137-145) L D 03/02/19 04:29 Potassium 4.3 mmol/L (3.6-5.0) 03/02/19 04:29 Chloride 89.3 mmol/L (98-107) L 03/02/19 04:29 Carbon Dioxide 41 mmol/L (22-30) H* 03/02/19 04:29 10 mmol/L 03/02/19 04:29 BUN 36 mg/dL (7-17) H 03/02/19 04:29 0.7 mg/dL (0.7-1.2) D 03/02/19 04:29 Estimated GFR > 60 ml/min 09/12/19 04:29 51 % 03/02/19 04:29 Glucose 132 mg/dL (65-100) H 03/02/19 04:29 POC Glucose 262 (70-105) H 03/01/19 20:33 Calcium 8.9 mg/dL (8.4-10.2) 03/02/19 04:29 < 0.010 ng/mL (0.00-0.029) 03/02/19 06:46 NT-Pro-B Natriuret Pep 54.75 pg/mL (0-900) 02/28/19 17:03 Active Medications - Current Medications Current Medications: Generic Name Dose Route Start Last Admin Trade Name Freq PRN Reason Stop Dose Admin Acetaminophen 650 mg 02/28/19 19:44 03/05/19 10:18 Tylenol PO 650 mg Q4H PRN Administration Pain MILD(1-3)/Fever >100.5/PÉREZ Albuterol 2.5 mg 03/01/19 08:24 Proventil IH Q4H PRN Shortness Of Breath Albuterol/Ipratropium 1 ampul 03/02/19 16:00 03/05/19 05:07 Duoneb *Not For Prn Use* IH 1 ampul Q4HRT SEBASTIAN Administration Alprazolam 0.25 mg 02/28/19 22:00 03/05/19 10:19 Xanax PO 0.25 mg BID SEBASTIAN Administration Budesonide 0.5 mg 02/28/19 20:00 03/04/19 19:48 Pulmicort IH 0.5 mg Q12HRT SEBASTIAN Administration Carvedilol 3.125 mg 03/01/19 22:00 03/05/19 10:19 Coreg PO 3.125 mg BID SEBASTIAN Administration Docusate Sodium 100 mg 02/28/19 22:00 03/05/19 10:19 Colace PO 100 mg BID SEBASTIAN Administration Enoxaparin Sodium 40 mg 03/01/19 10:00 03/05/19 10:20 Lovenox SUB-Q 40 mg QDAY SEBASTIAN Administration Guaifenesin 600 mg 02/28/19 22:00 03/05/19 10:19 Mucinex Er PO 600 mg BID SEBASTIAN Administration Hydralazine HCl 25 mg 02/28/19 22:00 03/05/19 05:19 Apresoline PO Not Given Q8HR SEBASTIAN Ceftriaxone Sodium 1 gm in 50 mls @ 100 mls/hr 03/01/19 10:00 03/04/19 09:23 Rocephin/Ns 1 Gm/50 Ml IV 100 mls/hr DAILY@0800 SEBASTIAN Administration Protocol Azithromycin 500 mg/ Sodium 250 mls @ 250 mls/hr 03/01/19 10:00 03/05/19 10:20 Chloride IV 250 mls/hr Q24HR SEBASTIAN Administration Protocol Lisinopril 5 mg 03/01/19 10:00 03/05/19 10:20 Zestril PO 5 mg QDAY SEBASTIAN Administration Methylprednisolone Sodium Succinate 60 mg 03/02/19 14:00 03/05/19 08:00 Solu-Medrol IV 60 mg Q6H SEBASTIAN Administration Montelukast Sodium 10 mg 02/28/19 22:00 03/04/19 21:08 Singulair PO 10 mg QHS SEBASTIAN Administration Ondansetron HCl 4 mg 02/28/19 19:44 Zofran IV Q8H PRN Nausea And Vomiting Quetiapine Fumarate 50 mg 02/28/19 22:00 03/04/19 21:08 Seroquel PO 50 mg QHS SEBASTIAN Administration Sodium Chloride 10 ml 02/28/19 22:00 03/05/19 10:20 Sodium Chloride Flush Syringe 10 Ml IV 10 ml BID SEBASTIAN Administration Sodium Chloride 10 ml 02/28/19 19:44 Sodium Chloride Flush Syringe 10 Ml IV PRN PRN LINE FLUSH Nutrition/Malnutrition Assess - Dietary Evaluation Nutrition/Malnutrition Findings: Nutrition Notes Start: 03/01/19 10:49 Freq: Status: Active Protocol: Document 03/03/19 11:10 DW (Rec: 03/03/19 11:58 DW [id number]) Co-Sign 03/03/19 11:10 LP Nutrition Notes Initial or Follow up Reassessment Current Diagnosis COPD,Hypertension,Respiratory Failure Other Pertinent Diagnosis CHF, SOB, Anxiety Current Diet Regular Labs/Tests Glu: 132 Na: 136 BUN; 36 Pertinent Medications Reviewed Height 5 ft 2 in Weight 58.967 kg Usual Body Weight 65 kg [place] Body Weight (kg) 50.00 BMI 23.8 Weight change and time frame 11% in 2 mo Subjective/Other Information Pt stated that she eats 100% of her meals depending on what is on the tray. Pt gave array of food preferences and stated she does not like milky drinks so she has not been drinking ONS, pt requested Ensure Clear [place]. Pt stated that she sometimes feels a pain in her chest after having a meal in bed, writter recommended eating at table or putting pillows behind her back so she is in an upright position while eating. Pt also stated that she drinks a lot of fluids d/t feeling thirsty, writter recommened limiting fluids to 1.5 L/day and sucking on hard candy if feeling thirsty. Pt stated she has changed her meal prepping techniques and does no add salt to foods. 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 No Is Patient Ambulatory and/or Out of Bed No REE-([facility]-confined to bed) 1334.652 Kcal/Kg value to use for calculation 30 Approximate Energy Requirements Using 1769 kcal/Kg Calculation Used for Recommendations Kcal/kg Additional Notes PRO needs: 71-88g (1.2-1.5 g/ kg) Fluid needs: 1.5 mL/day Nutrition Intervention Change Diet Order: Continue current diet Add Supplement/Snack (indicate name/kcal Change to Ensure Clear [place] /protein ) BID Provides kCal: 480 Provides Protein (gm) 16 Goal #1 Meet atleast 75% of energy and PRO needs via PO/ONS Goal #2 Wt maintaince/gain Anticipated Discharge Needs: Regular diet and ONS daily Follow-Up By: 03/06/19 Additional Comments FU PO/ONS intake
[2019-03-05] MEDS: ROCEPHIN/NS 1 GM/50 ML 1 GM/50 ML BAG IV SCH (10:44)
--- NOTE | 2019-03-05 10:46 | Progress Note ---
Assessment and Plan atient alert, awake and resting on Vapotherm, FIO2 35%. O2 saturation 97%. Patient says breathing better.Patient afebrile and has mild leukocytosis. Recommend slowly taper solumedrol.Complaining heart burn like symptoms. Recommend to start on PPI. - Patient Problems (1) Acute and chronic respiratory failure with hypercapnia Current Visit: Yes Status: Acute Plan to address problem: Continue Vapotherm Continue albuterol/atrovent aerosol treatments q 6 hours. Recommend slowly taper I/V solumedrol Continue Zithromax and ceftriaxone Continue S/C Lovenox. Recommend GI prophylaxis. (2) COPD exacerbation Current Visit: Yes Status: Acute Plan to address problem: Continue Vapotherm Continue albuterol/atrovent aerosol treatments q 6 hours. Recommend slowly taper I/V solumedrol Continue Zithromax and ceftriaxone Continue S/C Lovenox. Recommend GI prophylaxis PFTs as out patient. (3) Acute bronchitis Current Visit: No Status: Acute Plan to address problem: Patient is on ceftriaxone and Zithromax. (4) GERD (gastroesophageal reflux disease) Current Visit: No Status: Acute Qualifiers: Esophagitis presence: without esophagitis Qualified Code(s): K21.9 - Gastro-esophageal reflux disease without esophagitis Plan to address problem: Recommend PPIs. (5) HTN (hypertension) Current Visit: No Status: Acute Qualifiers: Hypertension type: essential hypertension Qualified Code(s): I10 - Essential (primary) hypertension Plan to address problem: Management as per primary care. Subjective Date of service: 03/05/19 Principal diagnosis: COPD Interval history: Patient alert, awake and resting on Vapotherm, FIO2 35%. O2 saturation 97%. Patient says breathing better.Patient afebrile and has mild leukocytosis. Recommend slowly taper solumedrol. Complaining heart burn like symptoms. Recommend to start on PPI. Objective Vital Signs - 12hr 03/04/19 03/05/19 03/05/19 23:22 01:00 01:49 Temperature Pulse Rate 69 Pulse Rate [ 80 Anterior Bilateral Throughout] Pulse Rate [ 59 L Posterior Bilateral Throughout] Respiratory 20 Rate Respiratory 18 Rate [Anterior Bilateral Throughout] Respiratory 20 Rate [Head] Respiratory 20 Rate [Posterior Bilateral Throughout] Blood Pressure O2 Sat by Pulse 99 Oximetry 03/05/19 03/05/19 03/05/19 05:00 05:06 05:19 Temperature 98.8 F Pulse Rate 65 65 Pulse Rate [ 64 Anterior Bilateral Throughout] Pulse Rate [ 61 Posterior Bilateral Throughout] Respiratory 20 Rate Respiratory 20 Rate [Anterior Bilateral Throughout] Respiratory 17 Rate [Head] Respiratory 20 Rate [Posterior Bilateral Throughout] Blood Pressure 108/59 108/59 O2 Sat by Pulse 98 Oximetry Constitutional: no acute distress, alert Eyes: non-icteric ENT: oropharynx moist Neck: supple Ascultation: Bilateral: diminished breath sounds, wheezes, other (Prolonged expiratory phase.) Percussion: Bilateral: not dull Cardiovascular: regular rate and rhythm Gastrointestinal: normoactive bowel sounds, soft, non-tender, non-distended Integumentary: normal Extremities: no cyanosis, no edema Neurologic: normal mental status, non-focal exam, pupils equal and round Psychiatric: other (Sleeping at this time.) CBC and BMP: 03/02/19 04:29 03/02/19 04:29 ABG, PT/INR, D-dimer: ABG POC ABG pH 7.346 (7.35-7.45) L 03/02/19 01:58 ABG pH 7.226 pH Units (7.350-7.450) L 02/28/19 22:00 ABG pCO2 122.8 mm Hg 02/28/19 22:00 POC ABG pO2 82 (80-105) 03/02/19 01:58 ABG pO2 71.7 mm Hg (80.0-90.0) L 02/28/19 22:00 POC ABG HCO3 47.5 (22-26 mml/L) 03/02/19 01:58 POC ABG Total CO2 > 50 (23-27mmol/L) 03/02/19 01:58 POC ABG O2 Sat 94 03/02/19 01:58 ABG O2 Saturation 94.5 % (95.0-99.0) L 02/28/19 22:00 Abnormal lab findings: Abnormal Labs 02/28/19 02/28/19 02/28/19 17:03 17:10 18:53 WBC RBC MCV 104 H MCH Seg Neutrophils % 75.6 H Seg Neuts % (Manual) Lymphocytes % (Manual) Lymphocytes # (Manual) POC ABG pH 7.174 L ABG pH POC ABG pO2 69 L ABG pO2 ABG HCO3 ABG O2 Saturation ABG Base Excess Oxyhemoglobin Sodium 146 H Chloride 94.8 L Carbon Dioxide 49 H* BUN Creatinine 0.3 L Glucose POC Glucose 02/28/19 03/01/19 03/01/19 22:00 04:20 04:20 WBC RBC MCV 105 H MCH 33 H Seg Neutrophils % Seg Neuts % (Manual) 96.0 H Lymphocytes % (Manual) 4.0 L Lymphocytes # (Manual) 0.2 L POC ABG pH ABG pH 7.226 L POC ABG pO2 ABG pO2 71.7 L ABG HCO3 49.8 H ABG O2 Saturation 94.5 L ABG Base Excess 16.6 H Oxyhemoglobin 91.0 L Sodium 147 H Chloride 93.8 L Carbon Dioxide 43 H* BUN 19 H Creatinine 0.4 L Glucose 124 H POC Glucose 03/01/19 03/01/19 03/01/19 08:36 16:31 20:33 WBC RBC MCV MCH Seg Neutrophils % Seg Neuts % (Manual) Lymphocytes % (Manual) Lymphocytes # (Manual) POC ABG pH 7.261 L 7.249 L ABG pH POC ABG pO2 108 H ABG pO2 ABG HCO3 ABG O2 Saturation ABG Base Excess Oxyhemoglobin Sodium Chloride Carbon Dioxide BUN Creatinine Glucose POC Glucose 262 H 03/02/19 03/02/19 03/02/19 01:58 04:29 04:29 WBC 13.2 H RBC 3.58 L MCV 101 H MCH Seg Neutrophils % Seg Neuts % (Manual) Lymphocytes % (Manual) Lymphocytes # (Manual) POC ABG pH 7.346 L ABG pH POC ABG pO2 ABG pO2 ABG HCO3 ABG O2 Saturation ABG Base Excess Oxyhemoglobin Sodium 136 L D Chloride 89.3 L Carbon Dioxide 41 H* BUN 36 H Creatinine Glucose 132 H POC Glucose
[2019-03-05] MEDS: PULMICORT IH SCH ×2 (10:53→21:07)
--- NOTE | 2019-03-05 12:59 | Progress Note ---
Assessment and Plan Imp: 1. Centrilobular emphysema 2. COPD exac. 3. A/C respiratory failure, hypoxia/hypercapnea 4. Acute bronchitis 5. Anxiety Rec: 1. Cont. Solumedrol, ABX, nebs 2. Goal sats 88-94% at all times; 3. Patient lost her BIPAP machine a couple of months ago; she will not survive without NIPPV; I recommend trying to get Trilogy/NIV arranged prior to d/c Subjective Date of service: 03/05/19 Principal diagnosis: COPD Interval history: Patient report breathing much better. Offhigh flow nasal cannula. Used BiPAP during the night. Patient is a long-standing patient off Dr. Quintana. However other pulmonary group keeps following her in spite of being told that she is being followed by Dr. Quintana as an outpatient for many years. Objective Vital Signs - 12hr 03/05/19 03/05/19 03/05/19 01:00 01:49 05:00 Temperature Pulse Rate Pulse Rate [ 80 64 Anterior Bilateral Throughout] Pulse Rate [ 59 L 61 Posterior Bilateral Throughout] Respiratory Rate Respiratory 18 20 Rate [Anterior Bilateral Throughout] Respiratory 20 17 Rate [Head] Respiratory 20 20 Rate [Posterior Bilateral Throughout] Blood Pressure O2 Sat by Pulse Oximetry 03/05/19 03/05/19 03/05/19 05:06 05:19 10:53 Temperature 98.8 F Pulse Rate 65 65 Pulse Rate [ 67 Anterior Bilateral Throughout] Pulse Rate [ 68 Posterior Bilateral Throughout] Respiratory 20 Rate Respiratory 18 Rate [Anterior Bilateral Throughout] Respiratory Rate [Head] Respiratory 18 Rate [Posterior Bilateral Throughout] Blood Pressure 108/59 108/59 O2 Sat by Pulse 98 Oximetry 03/05/19 03/05/19 11:11 12:02 Temperature 98.0 F Pulse Rate 102 H Pulse Rate [ Anterior Bilateral Throughout] Pulse Rate [ Posterior Bilateral Throughout] Respiratory 23 Rate Respiratory Rate [Anterior Bilateral Throughout] Respiratory Rate [Head] Respiratory Rate [Posterior Bilateral Throughout] Blood Pressure 131/68 O2 Sat by Pulse 96 91 Oximetry Constitutional: no acute distress, alert Eyes: non-icteric ENT: oropharynx moist Neck: supple Ascultation: Bilateral: diminished breath sounds, wheezes, other (Prolonged expiratory phase.) Percussion: Bilateral: not dull Cardiovascular: regular rate and rhythm Gastrointestinal: normoactive bowel sounds, soft, non-tender, non-distended Integumentary: normal Extremities: no cyanosis, no edema Neurologic: normal mental status, non-focal exam, pupils equal and round Psychiatric: other (Sleeping at this time.) CBC and BMP: 03/02/19 04:29 03/02/19 04:29 ABG, PT/INR, D-dimer: ABG POC ABG pH 7.346 (7.35-7.45) L 03/02/19 01:58 ABG pH 7.226 pH Units (7.350-7.450) L 02/28/19 22:00 ABG pCO2 122.8 mm Hg 02/28/19 22:00 POC ABG pO2 82 (80-105) 03/02/19 01:58 ABG pO2 71.7 mm Hg (80.0-90.0) L 02/28/19 22:00 POC ABG HCO3 47.5 (22-26 mml/L) 03/02/19 01:58 POC ABG Total CO2 > 50 (23-27mmol/L) 03/02/19 01:58 POC ABG O2 Sat 94 03/02/19 01:58 ABG O2 Saturation 94.5 % (95.0-99.0) L 02/28/19 22:00 Abnormal lab findings: Abnormal Labs 02/28/19 02/28/19 02/28/19 17:03 17:10 18:53 WBC RBC MCV 104 H MCH Seg Neutrophils % 75.6 H Seg Neuts % (Manual) Lymphocytes % (Manual) Lymphocytes # (Manual) POC ABG pH 7.174 L ABG pH POC ABG pO2 69 L ABG pO2 ABG HCO3 ABG O2 Saturation ABG Base Excess Oxyhemoglobin Sodium 146 H Chloride 94.8 L Carbon Dioxide 49 H* BUN Creatinine 0.3 L Glucose POC Glucose 02/28/19 03/01/19 03/01/19 22:00 04:20 04:20 WBC RBC MCV 105 H MCH 33 H Seg Neutrophils % Seg Neuts % (Manual) 96.0 H Lymphocytes % (Manual) 4.0 L Lymphocytes # (Manual) 0.2 L POC ABG pH ABG pH 7.226 L POC ABG pO2 ABG pO2 71.7 L ABG HCO3 49.8 H ABG O2 Saturation 94.5 L ABG Base Excess 16.6 H Oxyhemoglobin 91.0 L Sodium 147 H Chloride 93.8 L Carbon Dioxide 43 H* BUN 19 H Creatinine 0.4 L Glucose 124 H POC Glucose 03/01/19 03/01/19 03/01/19 08:36 16:31 20:33 WBC RBC MCV MCH Seg Neutrophils % Seg Neuts % (Manual) Lymphocytes % (Manual) Lymphocytes # (Manual) POC ABG pH 7.261 L 7.249 L ABG pH POC ABG pO2 108 H ABG pO2 ABG HCO3 ABG O2 Saturation ABG Base Excess Oxyhemoglobin Sodium Chloride Carbon Dioxide BUN Creatinine Glucose POC Glucose 262 H 03/02/19 03/02/19 03/02/19 01:58 04:29 04:29 WBC 13.2 H RBC 3.58 L MCV 101 H MCH Seg Neutrophils % Seg Neuts % (Manual) Lymphocytes % (Manual) Lymphocytes # (Manual) POC ABG pH 7.346 L ABG pH POC ABG pO2 ABG pO2 ABG HCO3 ABG O2 Saturation ABG Base Excess Oxyhemoglobin Sodium 136 L D Chloride 89.3 L Carbon Dioxide 41 H* BUN 36 H Creatinine Glucose 132 H POC Glucose
[2019-03-05] MEDS: SINGULAIR PO SCH (23:50)
[2019-03-06] MEDS: TYLENOL PO PRN ×3 (00:03→19:59)
[2019-03-06] MEDS: DUONEB *Not for PRN Use IH SCH ×6 (00:16→19:04)
[2019-03-06] MEDS: SOLU-Medrol IV SCH ×4 (02:44→22:03)
[2019-03-06 07:20] LABS: Hematocrit 32.6 % (30.3-42.9); Hemoglobin 10.5 gm/dl (10.1-14.3); Mean Corpuscular HGB Conc 32 % (30-34); Mean Corpuscular Volume 101 fl (79-97); Platelet Count 209 K/mm3 (140-440); Red Blood Count 3.23 M/mm3 (3.65-5.03); Red Cell Distribution Width 13.9 % (13.2-15.2)
[2019-03-06 07:36] LABS: BUN/Creatinine Ratio 48; Blood Urea Nitrogen 19 mg/dL (7-17); Calcium 8.5 mg/dL (8.4-10.2); Hemolysis Index 8
[2019-03-06] MEDS: APRESOLINE PO SCH ×3 (07:38→22:04)
[2019-03-06] MEDS: PULMICORT IH SCH ×2 (09:04→19:04)
--- NOTE | 2019-03-06 09:48 | Progress Note ---
Assessment and Plan Assessment and plan: Patient is a 63 yo woman with a history of anxiety, chronic respiratory failure on 3L on home O2 due to end stage COPD, CHF EF 40-45%, trace AR who presented with SOB and productive cough. 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 Acute Exacerbation COPD: wean High Flow nasal canula if possible Acute on chronic hypoxic respiratory failure with hypercapnia: treat with IV steriods, abx, nebs Hypertension: Continue to monitor BP, Resume home antihypertensive meds to optimize BP Hypernatremia: treat with free water, monitor bmp closely Anxiety-Continue Xanax DVT PPX-on Lovenox Disposition: continue inpatient care, downgraded to medsurg with remote and continous pulse ox; Trilogy/NIV recommended but I do not know how feasible that will be History Interval history: Patient was seen and examined. Follow-up on current diagnosis of COPD. No overnight events reported to me. Patient denies any chest pain, nausea/vomiting or severe headaches. Imaging, nursing note, chart, labs and old chart reviewed. Discussed with patient. Down to 40% high flow O2 Hospitalist Physical - Physical exam Narrative exam: Gen: thin frail, ill appearing, Awake, Alert, Orientated x 3, on BIPAP HEENT: NCAT, EOMI, PERRL, OP Clear Neck: supple, no adenopathy, no thyromegaly, no JVD CVS/Heart: RRR, normal S1S2, pulses present bilaterally Chest/Lungs: Diminished BS bilaterally, Symmetrical chest expansion, good air entry bilaterally GI/Abdomen: soft, NTND, good bowel sounds, no guarding or rebound /Bladder: no suprapubic tenderness, no CVA or paraspinal tenderness Extermity/Skin: no c/c/e, no obvious rash MSK: FROM x 4 Neuro: CN 2-12 grossly intact, no new focal deficits Psych: calm - Constitutional Vitals: Temp Pulse Resp BP Pulse Ox 97.6 F 90 20 116/64 98 03/06/19 05:25 03/06/19 09:24 03/06/19 09:24 03/06/19 05:25 03/06/19 09:04 Results - Labs CBC & Chem 7: 03/06/19 06:40 03/06/19 06:40 Labs: Laboratory Last Values WBC 9.8 K/mm3 (4.5-11.0) 03/06/19 06:40 RBC 3.23 M/mm3 (3.65-5.03) L 03/06/19 06:40 Hgb 10.5 gm/dl (10.1-14.3) 03/06/19 06:40 Hct 32.6 % (30.3-42.9) 03/06/19 06:40 MCV 101 fl (79-97) H 03/06/19 06:40 MCH 33 pg (28-32) H 03/06/19 06:40 MCHC 32 % (30-34) 03/06/19 06:40 RDW 13.9 % (13.2-15.2) 03/06/19 06:40 Plt Count 209 K/mm3 (140-440) 03/06/19 06:40 Lymph % (Auto) 16.9 % (13.4-35.0) 02/28/19 17:03 [place] % (Auto) 6.9 % (0.0-7.3) 02/28/19 17:03 Eos % (Auto) 0.5 % (0.0-4.3) 02/28/19 17:03 Baso % (Auto) 0.1 % (0.0-1.8) 02/28/19 17:03 Lymph # 1.4 K/mm3 (1.2-5.4) 02/28/19 17:03 [place] # 0.6 K/mm3 (0.0-0.8) 02/28/19 17:03 Eos # 0.0 K/mm3 (0.0-0.4) 02/28/19 17:03 Baso # 0.0 K/mm3 (0.0-0.1) 02/28/19 17:03 Add Manual Diff Complete 03/01/19 04:20 Total Counted 100 03/01/19 04:20 Seg Neutrophils % Software Development Manager 03/01/19 04:20 Seg Neuts % (Manual) 96.0 % (40.0-70.0) H 03/01/19 04:20 0 % 03/01/19 04:20 4.0 % (13.4-35.0) L 03/01/19 04:20 Reactive Lymphs % (Man) 0 % 03/01/19 04:20 0 % (0.0-7.3) 03/01/19 04:20 0 % (0.0-4.3) 03/01/19 04:20 0 % (0.0-1.8) 03/01/19 04:20 0 % 03/01/19 04:20 0 % 03/01/19 04:20 0 % 03/01/19 04:20 0 % 03/01/19 04:20 Nucleated RBC % Not Reportable 03/01/19 04:20 Seg Neutrophils # 6.2 K/mm3 (1.8-7.7) 02/28/19 17:03 Seg Neutrophils # Man 5.2 K/mm3 (1.8-7.7) 03/01/19 04:20 Band Neutrophils # 0.0 K/mm3 03/01/19 04:20 0.2 K/mm3 (1.2-5.4) L 03/01/19 04:20 Abs React Lymphs (Man) 0.0 K/mm3 03/01/19 04:20 0.0 K/mm3 (0.0-0.8) 03/01/19 04:20 0.0 K/mm3 (0.0-0.4) 03/01/19 04:20 0.0 K/mm3 (0.0-0.1) 03/01/19 04:20 0.0 K/mm3 03/01/19 04:20 0.0 K/mm3 03/01/19 04:20 0.0 K/mm3 03/01/19 04:20 Blast Cells # 0.0 K/mm3 03/01/19 04:20 WBC Morphology Not Reportable 03/01/19 04:20 Hypersegmented Neuts Not Reportable 03/01/19 04:20 Hyposegmented Neuts Not Reportable 03/01/19 04:20 Hypogranular Neuts Not Reportable 03/01/19 04:20 Not Reportable 03/01/19 04:20 Not Reportable 03/01/19 04:20 Not Reportable 03/01/19 04:20 Not Reportable 03/01/19 04:20 Not Reportable 03/01/19 04:20 Not Reportable 03/01/19 04:20 Consistent w auto 03/01/19 04:20 Not Reportable 03/01/19 04:20 Plt Clumps, EDTA Not Reportable 03/01/19 04:20 Not Reportable 03/01/19 04:20 Not Reportable 03/01/19 04:20 Not Reportable 03/01/19 04:20 Plt Morphology Comment Not Reportable 03/01/19 04:20 RBC Morphology Not Reportable 03/01/19 04:20 Dimorphic RBCs Not Reportable 03/01/19 04:20 Not Reportable 03/01/19 04:20 Not Reportable 03/01/19 04:20 Not Reportable 03/01/19 04:20 Not Reportable 03/01/19 04:20 Not Reportable 03/01/19 04:20 Rare 03/01/19 04:20 Not Reportable 03/01/19 04:20 Not Reportable 03/01/19 04:20 Not Reportable 03/01/19 04:20 Not Reportable 03/01/19 04:20 Not Reportable 03/01/19 04:20 Not Reportable 03/01/19 04:20 2+ 03/01/19 04:20 Not Reportable 03/01/19 04:20 Not Reportable 03/01/19 04:20 Not Reportable 03/01/19 04:20 Not Reportable 03/01/19 04:20 Not Reportable 03/01/19 04:20 Not Reportable 03/01/19 04:20 Not Reportable 03/01/19 04:20 Acanthocytes (Spur) Not Reportable 03/01/19 04:20 Rouleaux Not Reportable 03/01/19 04:20 Not Reportable 03/01/19 04:20 Not Reportable 03/01/19 04:20 Not Reportable 03/01/19 04:20 Not Reportable 03/01/19 04:20 Hem Pathologist Commnt No 03/01/19 04:20 POC ABG pH 7.346 (7.35-7.45) L 03/02/19 01:58 ABG pH 7.226 pH Units (7.350-7.450) L 02/28/19 22:00 ABG pCO2 122.8 mm Hg 02/28/19 22:00 POC ABG pO2 82 (80-105) 03/02/19 01:58 ABG pO2 71.7 mm Hg (80.0-90.0) L 02/28/19 22:00 POC ABG HCO3 47.5 (22-26 mml/L) 03/02/19 01:58 ABG HCO3 49.8 mmol/L (20.0-26.0) H 02/28/19 22:00 POC ABG Total CO2 > 50 (23-27mmol/L) 03/02/19 01:58 POC ABG O2 Sat 94 03/02/19 01:58 ABG O2 Saturation 94.5 % (95.0-99.0) L 02/28/19 22:00 ABG O2 Content 16.9 (0.0-44) 02/28/19 22:00 POC ABG Base Excess 22 ((-2) - (+3)mmol/L) 03/02/19 01:58 ABG Base Excess 16.6 mmol/L (-2.0-3.0) H 02/28/19 22:00 ABG Hemoglobin 13.2 gm/dl (12.0-16.0) 02/28/19 22:00 ABG Carboxyhemoglobin 3.0 % (0.0-5.0) 02/28/19 22:00 ABG Methemoglobin 0.7 % (0.0-1.5) 02/28/19 22:00 91.0 % (95.0-99.0) L 02/28/19 22:00 40 % 03/02/19 01:58 Sodium 143 mmol/L (137-145) D 03/06/19 06:40 Potassium 4.3 mmol/L (3.6-5.0) 03/06/19 06:40 Chloride 96.6 mmol/L (98-107) L 03/06/19 06:40 Carbon Dioxide 39 mmol/L (22-30) H 03/06/19 06:40 12 mmol/L 03/06/19 06:40 BUN 19 mg/dL (7-17) H 03/06/19 06:40 0.4 mg/dL (0.7-1.2) L 03/06/19 06:40 Estimated GFR > 60 ml/min 03/06/19 06:40 48 % 03/06/19 06:40 Glucose 148 mg/dL (65-100) H 03/06/19 06:40 POC Glucose 262 (70-105) H 03/01/19 20:33 Calcium 8.5 mg/dL (8.4-10.2) 03/06/19 06:40 < 0.010 ng/mL (0.00-0.029) 03/02/19 06:46 NT-Pro-B Natriuret Pep 54.75 pg/mL (0-900) 02/28/19 17:03 Active Medications - Current Medications Current Medications: Generic Name Dose Route Start Last Admin Trade Name Freq PRN Reason Stop Dose Admin Acetaminophen 650 mg 02/28/19 19:44 03/06/19 00:03 Tylenol PO 650 mg Q4H PRN Administration Pain MILD(1-3)/Fever >100.5/PÉREZ Albuterol 2.5 mg 03/01/19 08:24 Proventil IH Q4H PRN Shortness Of Breath Albuterol/Ipratropium 1 ampul 03/02/19 16:00 03/06/19 09:04 Duoneb *Not For Prn Use* IH 1 ampul Q4HRT SEBASTIAN Administration Alprazolam 0.25 mg 02/28/19 22:00 03/05/19 23:52 Xanax PO 0.25 mg BID SEBASTIAN Administration Budesonide 0.5 mg 02/28/19 20:00 03/06/19 09:04 Pulmicort IH 0.5 mg Q12HRT SEBASTIAN Administration Carvedilol 3.125 mg 03/01/19 22:00 03/05/19 23:52 Coreg PO 3.125 mg BID SEBASTIAN Administration Docusate Sodium 100 mg 02/28/19 22:00 03/05/19 23:53 Colace PO Not Given BID SEBASTIAN Enoxaparin Sodium 40 mg 03/01/19 10:00 03/05/19 10:20 Lovenox SUB-Q 40 mg QDAY SEBASTIAN Administration Guaifenesin 600 mg 02/28/19 22:00 03/05/19 23:50 Mucinex Er PO 600 mg BID SEBASTIAN Administration Hydralazine HCl 25 mg 02/28/19 22:00 03/05/19 23:51 Apresoline PO 25 mg Q8HR SEBASTIAN Administration Ceftriaxone Sodium 1 gm in 50 mls @ 100 mls/hr 03/01/19 10:00 03/05/19 10:44 Rocephin/Ns 1 Gm/50 Ml IV 100 mls/hr DAILY@0800 SEBASTIAN Administration Protocol Azithromycin 500 mg/ Sodium 250 mls @ 250 mls/hr 03/01/19 10:00 03/05/19 10:20 Chloride IV 250 mls/hr Q24HR SEBASTIAN Administration Protocol Lisinopril 5 mg 03/01/19 10:00 03/05/19 10:20 Zestril PO 5 mg QDAY SEBASTIAN Administration Methylprednisolone Sodium Succinate 60 mg 03/02/19 14:00 03/06/19 02:44 Solu-Medrol IV 60 mg Q6H SEBASTIAN Administration Montelukast Sodium 10 mg 02/28/19 22:00 03/05/19 23:50 Singulair PO 10 mg QHS SEBASTIAN Administration Ondansetron HCl 4 mg 02/28/19 19:44 Zofran IV Q8H PRN Nausea And Vomiting Pantoprazole Sodium 40 mg 03/06/19 10:00 Protonix PO QDAY SEBASTIAN Quetiapine Fumarate 50 mg 02/28/19 22:00 03/05/19 23:50 Seroquel PO 50 mg QHS SEBASTIAN Administration Sodium Chloride 10 ml 02/28/19 22:00 03/05/19 23:52 Sodium Chloride Flush Syringe 10 Ml IV 10 ml BID SEBASTIAN Administration Sodium Chloride 10 ml 02/28/19 19:44 Sodium Chloride Flush Syringe 10 Ml IV PRN PRN LINE FLUSH Nutrition/Malnutrition Assess - Dietary Evaluation Nutrition/Malnutrition Findings: Nutrition Notes Start: 03/01/19 10:49 Freq: Status: Active Protocol: Document 03/03/19 11:10 DW (Rec: 03/03/19 11:58 DW [id number]) Co-Sign 03/03/19 11:10 LP Nutrition Notes Initial or Follow up Reassessment Current Diagnosis COPD,Hypertension,Respiratory Failure Other Pertinent Diagnosis CHF, SOB, Anxiety Current Diet Regular Labs/Tests Glu: 132 Na: 136 BUN; 36 Pertinent Medications Reviewed Height 5 ft 2 in Weight 58.967 kg Usual Body Weight 65 kg [place] Body Weight (kg) 50.00 BMI 23.8 Weight change and time frame 11% in 2 mo Subjective/Other Information Pt stated that she eats 100% of her meals depending on what is on the tray. Pt gave array of food preferences and stated she does not like milky drinks so she has not been drinking ONS, pt requested Ensure Clear [place]. Pt stated that she sometimes feels a pain in her chest after having a meal in bed, writter recommended eating at table or putting pillows behind her back so she is in an upright position while eating. Pt also stated that she drinks a lot of fluids d/t feeling thirsty, writter recommened limiting fluids to 1.5 L/day and sucking on hard candy if feeling thirsty. Pt stated she has changed her meal prepping techniques and does no add salt to foods. Burn Absent Trauma Absent GI Symptoms None Food Allergy Yes Minimum of two criteria Yes Interpretation of Weight Loss (severe) >7.5% in 3 months Muscle Mass Mild Depletion (non-severe) #2 Nutrition Diagnosis Malnutrition Etiology poor appetite and decreased intake [place] As Evidenced by Signs and Symptoms temporal and clavicle wasting and 11% wt loss in 2 mo #1 Nutrition Diagnosis Predicted suboptimal energy intake As Evidenced by Signs and Symptoms Pt not eating d/t food preferences Diagnosis Progress(for reassessment Resolved documentation) Is patient on ventilator? No Is Patient Ambulatory and/or Out of Bed No REE-([facility]-confined to bed) 1334.652 Kcal/Kg value to use for calculation 30 Approximate Energy Requirements Using 1769 kcal/Kg Calculation Used for Recommendations Kcal/kg Additional Notes PRO needs: 71-88g (1.2-1.5 g/ kg) Fluid needs: 1.5 mL/day Nutrition Intervention Change Diet Order: Continue current diet Add Supplement/Snack (indicate name/kcal Change to Ensure Clear [place] /protein ) BID Provides kCal: 480 Provides Protein (gm) 16 Goal #1 Meet atleast 75% of energy and PRO needs via PO/ONS Goal #2 Wt maintaince/gain Anticipated Discharge Needs: Regular diet and ONS daily Follow-Up By: 03/06/19 Additional Comments FU PO/ONS intake
[2019-03-06] MEDS: ZITHROMAX 500 MG in NACL 0.9% 250ML 250 ML IV SCH (11:00)
[2019-03-06] MEDS: COREG PO SCH ×2 (11:47→22:05)
[2019-03-06] MEDS: XANAX PO SCH ×2 (11:47→22:03)
[2019-03-06] MEDS: LOVENOX SUB-Q SCH (11:47)
[2019-03-06] MEDS: MUCINEX ER PO SCH ×2 (11:47→22:04)
[2019-03-06] MEDS: PROTONIX PO SCH (11:47)
[2019-03-06] MEDS: ZESTRIL PO SCH (11:47)
[2019-03-06] MEDS: SODIUM CHLORIDE FLUSH SYRINGE 10 ML IV SCH ×2 (11:54→22:12)
[2019-03-06] MEDS: COLACE PO SCH ×2 (11:55→22:08)
[2019-03-06] MEDS: ROCEPHIN/NS 1 GM/50 ML 1 GM/50 ML BAG IV SCH (12:48)
[2019-03-06] MEDS: SINGULAIR PO SCH (22:03)
[2019-03-07] MEDS: SOLU-Medrol IV SCH ×4 (02:53→22:22)
[2019-03-07] MEDS: DUONEB *Not for PRN Use IH SCH ×4 (03:34→20:04)
[2019-03-07] MEDS: APRESOLINE PO SCH ×3 (06:35→22:24)
[2019-03-07] MEDS: PULMICORT IH SCH ×2 (07:43→20:04)
[2019-03-07 07:53] LABS: Hematocrit 35.2 % (30.3-42.9); Hemoglobin 11.1 gm/dl (10.1-14.3); Mean Corpuscular HGB Conc 31 % (30-34); Mean Corpuscular Volume 101 fl (79-97); Platelet Count 252 K/mm3 (140-440); Red Blood Count 3.48 M/mm3 (3.65-5.03)
[2019-03-07 08:08] LABS: BUN/Creatinine Ratio 57; Blood Urea Nitrogen 17 mg/dL (7-17); Calcium 8.8 mg/dL (8.4-10.2); Hemolysis Index 12
[2019-03-07] MEDS: ROCEPHIN/NS 1 GM/50 ML 1 GM/50 ML BAG IV SCH (08:48)
[2019-03-07] MEDS: MUCINEX ER PO SCH ×2 (10:58→22:22)
[2019-03-07] MEDS: XANAX PO SCH ×2 (10:58→22:24)
[2019-03-07] MEDS: PROTONIX PO SCH (10:58)
[2019-03-07] MEDS: COLACE PO SCH ×2 (10:59→22:32)
[2019-03-07] MEDS: COREG PO SCH ×2 (11:04→22:23)
[2019-03-07] MEDS: LOVENOX SUB-Q SCH (11:06)
[2019-03-07] MEDS: SODIUM CHLORIDE FLUSH SYRINGE 10 ML IV SCH ×2 (11:09→22:25)
[2019-03-07] MEDS: ZESTRIL PO SCH (11:10)
[2019-03-07] MEDS: ZITHROMAX 500 MG in NACL 0.9% 250ML 250 ML IV SCH (11:16)
--- NOTE | 2019-03-07 12:18 | Progress Note ---
Assessment and Plan Assessment and plan: Patient is a 63 yo woman with a history of anxiety, chronic respiratory failure on 3L on home O2 due to end stage COPD, CHF EF 40-45%, trace [place] who presented with SOB and productive cough. 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 * Per cm, NIV has now been approved Acute Exacerbation COPD: wean High Flow nasal canula if possible. Consult placed for Pulmonary. Acute on chronic hypoxic respiratory failure with hypercapnia: treat with IV steriods, abx, nebs Hypertension: Continue to monitor BP, Resume home antihypertensive meds to optimize BP Hypernatremia: treat with free water, monitor bmp closely Anxiety-Continue Xanax DVT PPX-on Lovenox Disposition: continue inpatient care, downgraded to medsurg with remote and continuos pulse ox; Trilogy/NIV has been approved. History Interval history: Patient seen and examined, still with shortness breath. Follow-up on current diagnosis of COPD. No overnight events reported to me. Patient denies any chest pain, nausea/vomiting or severe headaches. Imaging, nursing note, chart, labs and old chart reviewed. Down to 40% high flow O2 Hospitalist Physical - Physical exam Narrative exam: Gen: thin frail, ill appearing, Awake, Alert, Orientated x 3, on BIPAP HEENT: NCAT, EOMI, PERRL, OP Clear Neck: supple, no adenopathy, no thyromegaly, no JVD CVS/Heart: RRR, normal S1S2, pulses present bilaterally Chest/Lungs: Diminished BS bilaterally, Symmetrical chest expansion, good air en try bilaterally [place]. GI/Abdomen: soft, NTND, good bowel sounds, no guarding or rebound /Bladder: no suprapubic tenderness, no CVA or paraspinal tenderness Extermity/Skin: no c/c/e, no obvious rash MSK: FROM x 4 Neuro: CN 2-12 grossly intact, no new focal deficits Psych: calm - Constitutional Vitals: Temp Pulse Resp BP Pulse Ox 98.0 F 99 H 22 144/70 96 03/07/19 06:20 03/07/19 11:10 03/07/19 11:02 03/07/19 11:10 03/07/19 11:02 Results - Labs CBC & Chem 7: 03/07/19 07:21 03/07/19 07:21 Labs: Laboratory Last Values WBC 12.1 K/mm3 (4.5-11.0) H 03/07/19 07:21 RBC 3.48 M/mm3 (3.65-5.03) L 03/07/19 07:21 Hgb 11.1 gm/dl (10.1-14.3) 03/07/19 07:21 Hct 35.2 % (30.3-42.9) 03/07/19 07:21 MCV 101 fl (79-97) H 03/07/19 07:21 MCH 32 pg (28-32) 03/07/19 07:21 MCHC 31 % (30-34) 03/07/19 07:21 RDW 14.0 % (13.2-15.2) 03/07/19 07:21 Plt Count 252 K/mm3 (140-440) 03/07/19 07:21 Lymph % (Auto) 16.9 % (13.4-35.0) 02/28/19 17:03 [place] % (Auto) 6.9 % (0.0-7.3) 02/28/19 17:03 Eos % (Auto) 0.5 % (0.0-4.3) 02/28/19 17:03 Baso % (Auto) 0.1 % (0.0-1.8) 02/28/19 17:03 Lymph # 1.4 K/mm3 (1.2-5.4) 02/28/19 17:03 [place] # 0.6 K/mm3 (0.0-0.8) 02/28/19 17:03 Eos # 0.0 K/mm3 (0.0-0.4) 02/28/19 17:03 Baso # 0.0 K/mm3 (0.0-0.1) 02/28/19 17:03 Add Manual Diff Complete 03/01/19 04:20 Total Counted 100 03/01/19 04:20 Seg Neutrophils % Stringer Up Soldering Machine 03/01/19 04:20 Seg Neuts % (Manual) 96.0 % (40.0-70.0) H 03/01/19 04:20 0 % 03/01/19 04:20 4.0 % (13.4-35.0) L 03/01/19 04:20 Reactive Lymphs % (Man) 0 % 03/01/19 04:20 0 % (0.0-7.3) 03/01/19 04:20 0 % (0.0-4.3) 03/01/19 04:20 0 % (0.0-1.8) 03/01/19 04:20 0 % 03/01/19 04:20 0 % 03/01/19 04:20 0 % 03/01/19 04:20 0 % 03/01/19 04:20 Nucleated RBC % Not Reportable 03/01/19 04:20 Seg Neutrophils # 6.2 K/mm3 (1.8-7.7) 02/28/19 17:03 Seg Neutrophils # Man 5.2 K/mm3 (1.8-7.7) 03/01/19 04:20 Band Neutrophils # 0.0 K/mm3 03/01/19 04:20 0.2 K/mm3 (1.2-5.4) L 03/01/19 04:20 Abs React Lymphs (Man) 0.0 K/mm3 03/01/19 04:20 0.0 K/mm3 (0.0-0.8) 03/01/19 04:20 0.0 K/mm3 (0.0-0.4) 03/01/19 04:20 0.0 K/mm3 (0.0-0.1) 03/01/19 04:20 0.0 K/mm3 03/01/19 04:20 0.0 K/mm3 03/01/19 04:20 0.0 K/mm3 03/01/19 04:20 Blast Cells # 0.0 K/mm3 03/01/19 04:20 WBC Morphology Not Reportable 03/01/19 04:20 Hypersegmented Neuts Not Reportable 03/01/19 04:20 Hyposegmented Neuts Not Reportable 03/01/19 04:20 Hypogranular Neuts Not Reportable 03/01/19 04:20 Not Reportable 03/01/19 04:20 Not Reportable 03/01/19 04:20 Not Reportable 03/01/19 04:20 Not Reportable 03/01/19 04:20 Not Reportable 03/01/19 04:20 Not Reportable 03/01/19 04:20 Consistent w auto 03/01/19 04:20 Not Reportable 03/01/19 04:20 Plt Clumps, EDTA Not Reportable 03/01/19 04:20 Not Reportable 03/01/19 04:20 Not Reportable 03/01/19 04:20 Not Reportable 03/01/19 04:20 Plt Morphology Comment Not Reportable 03/01/19 04:20 RBC Morphology Not Reportable 03/01/19 04:20 Dimorphic RBCs Not Reportable 03/01/19 04:20 Not Reportable 03/01/19 04:20 Not Reportable 03/01/19 04:20 Not Reportable 03/01/19 04:20 Not Reportable 03/01/19 04:20 Not Reportable 03/01/19 04:20 Rare 03/01/19 04:20 Not Reportable 03/01/19 04:20 Not Reportable 03/01/19 04:20 Not Reportable 03/01/19 04:20 Not Reportable 03/01/19 04:20 Not Reportable 03/01/19 04:20 Not Reportable 03/01/19 04:20 2+ 03/01/19 04:20 Not Reportable 03/01/19 04:20 Not Reportable 03/01/19 04:20 Not Reportable 03/01/19 04:20 Not Reportable 03/01/19 04:20 Not Reportable 03/01/19 04:20 Not Reportable 03/01/19 04:20 Not Reportable 03/01/19 04:20 Acanthocytes (Spur) Not Reportable 03/01/19 04:20 Rouleaux Not Reportable 03/01/19 04:20 Not Reportable 03/01/19 04:20 Not Reportable 03/01/19 04:20 Not Reportable 03/01/19 04:20 Not Reportable 03/01/19 04:20 Hem Pathologist Commnt No 03/01/19 04:20 POC ABG pH 7.346 (7.35-7.45) L 03/02/19 01:58 ABG pH 7.226 pH Units (7.350-7.450) L 02/28/19 22:00 ABG pCO2 122.8 mm Hg 02/28/19 22:00 POC ABG pO2 82 (80-105) 03/02/19 01:58 ABG pO2 71.7 mm Hg (80.0-90.0) L 02/28/19 22:00 POC ABG HCO3 47.5 (22-26 mml/L) 03/02/19 01:58 ABG HCO3 49.8 mmol/L (20.0-26.0) H 02/28/19 22:00 POC ABG Total CO2 > 50 (23-27mmol/L) 03/02/19 01:58 POC ABG O2 Sat 94 03/02/19 01:58 ABG O2 Saturation 94.5 % (95.0-99.0) L 02/28/19 22:00 ABG O2 Content 16.9 (0.0-44) 02/28/19 22:00 POC ABG Base Excess 22 ((-2) - (+3)mmol/L) 03/02/19 01:58 ABG Base Excess 16.6 mmol/L (-2.0-3.0) H 02/28/19 22:00 ABG Hemoglobin 13.2 gm/dl (12.0-16.0) 02/28/19 22:00 ABG Carboxyhemoglobin 3.0 % (0.0-5.0) 02/28/19 22:00 ABG Methemoglobin 0.7 % (0.0-1.5) 02/28/19 22:00 91.0 % (95.0-99.0) L 02/28/19 22:00 40 % 03/02/19 01:58 Sodium 141 mmol/L (137-145) 03/07/19 07:21 Potassium 4.8 mmol/L (3.6-5.0) 03/07/19 07:21 Chloride 95.3 mmol/L (98-107) L 03/07/19 07:21 Carbon Dioxide 43 mmol/L (22-30) H* 03/07/19 07:21 8 mmol/L 03/07/19 07:21 BUN 17 mg/dL (7-17) 03/07/19 07:21 0.3 mg/dL (0.7-1.2) L 03/07/19 07:21 Estimated GFR > 60 ml/min 03/07/19 07:21 57 % 03/07/19 07:21 Glucose 144 mg/dL (65-100) H 03/07/19 07:21 POC Glucose 262 (70-105) H 03/01/19 20:33 Calcium 8.8 mg/dL (8.4-10.2) 03/07/19 07:21 < 0.010 ng/mL (0.00-0.029) 03/02/19 06:46 NT-Pro-B Natriuret Pep 54.75 pg/mL (0-900) 02/28/19 17:03 Active Medications - Current Medications Current Medications: Generic Name Dose Route Start Last Admin Trade Name Freq PRN Reason Stop Dose Admin Acetaminophen 650 mg 02/28/19 19:44 03/06/19 19:59 Tylenol PO 650 mg Q4H PRN Administration Pain MILD(1-3)/Fever >100.5/PÉREZ Albuterol 2.5 mg 03/01/19 08:24 Proventil IH Q4H PRN Shortness Of Breath Albuterol/Ipratropium 1 ampul 03/06/19 20:00 03/07/19 07:43 Duoneb *Not For Prn Use* IH 1 ampul Q6HRT SEBASTIAN Administration Alprazolam 0.25 mg 02/28/19 22:00 03/07/19 10:58 Xanax PO 0.25 mg BID SEBASTIAN Administration Budesonide 0.5 mg 02/28/19 20:00 03/07/19 07:43 Pulmicort IH 0.5 mg Q12HRT SEBASTIAN Administration Carvedilol 3.125 mg 03/01/19 22:00 03/07/19 11:04 Coreg PO 3.125 mg BID SEBASTIAN Administration Docusate Sodium 100 mg 02/28/19 22:00 03/07/19 10:59 Colace PO 100 mg BID SEBASTIAN Administration Enoxaparin Sodium 40 mg 03/01/19 10:00 03/07/19 11:06 Lovenox SUB-Q 40 mg QDAY SEBASTIAN Administration Guaifenesin 600 mg 02/28/19 22:00 03/07/19 10:58 Mucinex Er PO 600 mg BID SEBASTIAN Administration Hydralazine HCl 25 mg 02/28/19 22:00 03/07/19 06:35 Apresoline PO 25 mg Q8HR SEBASTIAN Administration Ceftriaxone Sodium 1 gm in 50 mls @ 100 mls/hr 03/01/19 10:00 03/07/19 08:48 Rocephin/Ns 1 Gm/50 Ml IV 100 mls/hr DAILY@0800 SEBASTIAN Administration Protocol Azithromycin 500 mg/ Sodium 250 mls @ 250 mls/hr 03/01/19 10:00 03/07/19 11:16 Chloride IV 250 mls/hr Q24HR SEBASTIAN Administration Protocol Lisinopril 5 mg 03/01/19 10:00 03/07/19 11:10 Zestril PO 5 mg QDAY SEBASTIAN Administration Methylprednisolone Sodium Succinate 60 mg 03/02/19 14:00 03/07/19 08:48 Solu-Medrol IV 60 mg Q6H SEBASTIAN Administration Montelukast Sodium 10 mg 02/28/19 22:00 03/06/19 22:03 Singulair PO 10 mg QHS SEBASTIAN Administration Ondansetron HCl 4 mg 02/28/19 19:44 Zofran IV Q8H PRN Nausea And Vomiting Pantoprazole Sodium 40 mg 03/06/19 10:00 03/07/19 10:58 Protonix PO 40 mg QDAY SEBASTIAN Administration Quetiapine Fumarate 50 mg 02/28/19 22:00 03/06/19 22:04 Seroquel PO 50 mg QHS SEBASTIAN Administration Sodium Chloride 10 ml 02/28/19 22:00 03/07/19 11:09 Sodium Chloride Flush Syringe 10 Ml IV 10 ml BID SEBASTIAN Administration Sodium Chloride 10 ml 02/28/19 19:44 03/07/19 02:53 Sodium Chloride Flush Syringe 10 Ml IV 10 ml PRN PRN Administration LINE FLUSH Nutrition/Malnutrition Assess - Dietary Evaluation Nutrition/Malnutrition Findings: Nutrition Notes Start: 03/01/19 10:49 Freq: Status: Active Protocol: Document 03/06/19 14:26 [place] (Rec: 03/06/19 14:29 OH [id number]) Nutrition Notes Initial or Follow up Reassessment Other Pertinent Diagnosis CHF, SOB, Anxiety Current Diet Regular Labs/Tests Reviewed Pertinent Medications Reviewed Height 5 ft 2 in Weight 58.967 kg [place] Body Weight (kg) 50.00 BMI 23.8 Subjective/Other Information f/u: Pt. indicates she would like the clear Ensure over the regular ensure. Pt. reports not liking "milk" products. Burn Absent Trauma Absent GI Symptoms None Food Allergy Yes Is patient on ventilator? No Is Patient Ambulatory and/or Out of Bed No REE-([facility]-confined to bed) 1334.652 Kcal/Kg value to use for calculation 30 Approximate Energy Requirements Using 1769 kcal/Kg Calculation Used for Recommendations Kcal/kg Additional Notes PRO needs: 71-88g (1.2-1.5 g/ kg) Fluid needs: 1.5 mL/day Nutrition Intervention Change Diet Order: Continue current diet Add Supplement/Snack (indicate name/kcal Change to Ensure clear apple/ /protein ) [place] BID Provides kCal: 480 Provides Protein (gm) 16 Goal #1 Meet atleast 75% of energy and PRO needs via PO/ONS Goal #2 Wt maintaince/gain Anticipated Discharge Needs: Regular diet and ONS daily Follow-Up By: 03/10/19 Additional Comments FU PO/ONS intake
--- NOTE | 2019-03-07 12:48 | Progress Note ---
Assessment and Plan 63 y/o female with acute on chronic respiratory failure secondary to COPD exacerbation and lack of positive pressure at night. 1. If discharged today, please send out on Prednisone 60 daily for 4 days, 40 daily for 4 days, 20 daily for 4 days and 10 daily for 4 days. 2. No abx therapy is needed at discharge 3. She should follow up with [facility] in the next 10-14 days 4. Continue supplemental O2 and attempt to refrain from those who are smoking. Subjective Date of service: 03/07/19 Principal diagnosis: COPD Interval history: Other Group is still seeing patient, not sure why. She is at her baseline and ready to go home but still some discrepancies about the PP machine at night and cost. Objective Vital Signs - 12hr 03/07/19 03/07/19 03/07/19 03:34 03:36 06:20 Temperature 98.0 F Pulse Rate 62 63 Pulse Rate [ 62 Anterior Bilateral Throughout] Respiratory 22 18 Rate Respiratory 22 Rate [Anterior Bilateral Throughout] Blood Pressure 131/68 O2 Sat by Pulse 98 99 Oximetry 03/07/19 03/07/19 03/07/19 06:35 07:42 07:43 Temperature Pulse Rate 62 Pulse Rate [ 81 Anterior Bilateral Throughout] Respiratory Rate Respiratory 18 Rate [Anterior Bilateral Throughout] Blood Pressure 131/68 O2 Sat by Pulse 99 Oximetry 03/07/19 03/07/19 03/07/19 11:02 11:04 11:10 Temperature Pulse Rate 89 99 H 99 H Pulse Rate [ Anterior Bilateral Throughout] Respiratory 22 Rate Respiratory Rate [Anterior Bilateral Throughout] Blood Pressure 144/70 144/7 144/70 O2 Sat by Pulse 96 Oximetry Constitutional: no acute distress, alert Eyes: non-icteric ENT: oropharynx moist Neck: supple Ascultation: Bilateral: diminished breath sounds, wheezes, other (Prolonged expiratory phase.) Percussion: Bilateral: not dull Cardiovascular: regular rate and rhythm Gastrointestinal: normoactive bowel sounds, soft, non-tender, non-distended Integumentary: normal Extremities: no cyanosis, no edema Neurologic: normal mental status, non-focal exam, pupils equal and round Psychiatric: other (Sleeping at this time.) CBC and BMP: 03/07/19 07:21 03/07/19 07:21 ABG, PT/INR, D-dimer: ABG POC ABG pH 7.346 (7.35-7.45) L 03/02/19 01:58 ABG pH 7.226 pH Units (7.350-7.450) L 02/28/19 22:00 ABG pCO2 122.8 mm Hg 02/28/19 22:00 POC ABG pO2 82 (80-105) 03/02/19 01:58 ABG pO2 71.7 mm Hg (80.0-90.0) L 02/28/19 22:00 POC ABG HCO3 47.5 (22-26 mml/L) 03/02/19 01:58 POC ABG Total CO2 > 50 (23-27mmol/L) 03/02/19 01:58 POC ABG O2 Sat 94 03/02/19 01:58 ABG O2 Saturation 94.5 % (95.0-99.0) L 02/28/19 22:00 Abnormal lab findings: Abnormal Labs 02/28/19 02/28/19 02/28/19 17:03 17:10 18:53 WBC RBC MCV 104 H MCH Seg Neutrophils % 75.6 H Seg Neuts % (Manual) Lymphocytes % (Manual) Lymphocytes # (Manual) POC ABG pH 7.174 L ABG pH POC ABG pO2 69 L ABG pO2 ABG HCO3 ABG O2 Saturation ABG Base Excess Oxyhemoglobin Sodium 146 H Chloride 94.8 L Carbon Dioxide 49 H* BUN Creatinine 0.3 L Glucose POC Glucose 02/28/19 03/01/19 03/01/19 22:00 04:20 04:20 WBC RBC MCV 105 H MCH 33 H Seg Neutrophils % Seg Neuts % (Manual) 96.0 H Lymphocytes % (Manual) 4.0 L Lymphocytes # (Manual) 0.2 L POC ABG pH ABG pH 7.226 L POC ABG pO2 ABG pO2 71.7 L ABG HCO3 49.8 H ABG O2 Saturation 94.5 L ABG Base Excess 16.6 H Oxyhemoglobin 91.0 L Sodium 147 H Chloride 93.8 L Carbon Dioxide 43 H* BUN 19 H Creatinine 0.4 L Glucose 124 H POC Glucose 03/01/19 03/01/19 03/01/19 08:36 16:31 20:33 WBC RBC MCV MCH Seg Neutrophils % Seg Neuts % (Manual) Lymphocytes % (Manual) Lymphocytes # (Manual) POC ABG pH 7.261 L 7.249 L ABG pH POC ABG pO2 108 H ABG pO2 ABG HCO3 ABG O2 Saturation ABG Base Excess Oxyhemoglobin Sodium Chloride Carbon Dioxide BUN Creatinine Glucose POC Glucose 262 H 03/02/19 03/02/19 03/02/19 01:58 04:29 04:29 WBC 13.2 H RBC 3.58 L MCV 101 H MCH Seg Neutrophils % Seg Neuts % (Manual) Lymphocytes % (Manual) Lymphocytes # (Manual) POC ABG pH 7.346 L ABG pH POC ABG pO2 ABG pO2 ABG HCO3 ABG O2 Saturation ABG Base Excess Oxyhemoglobin Sodium 136 L D Chloride 89.3 L Carbon Dioxide 41 H* BUN 36 H Creatinine Glucose 132 H POC Glucose 03/06/19 03/06/19 03/07/19 06:40 06:40 07:21 WBC 12.1 H RBC 3.23 L 3.48 L MCV 101 H 101 H MCH 33 H Seg Neutrophils % Seg Neuts % (Manual) Lymphocytes % (Manual) Lymphocytes # (Manual) POC ABG pH ABG pH POC ABG pO2 ABG pO2 ABG HCO3 ABG O2 Saturation ABG Base Excess Oxyhemoglobin Sodium Chloride 96.6 L Carbon Dioxide 39 H BUN 19 H Creatinine 0.4 L Glucose 148 H POC Glucose 03/07/19 07:21 WBC RBC MCV MCH Seg Neutrophils % Seg Neuts % (Manual) Lymphocytes % (Manual) Lymphocytes # (Manual) POC ABG pH ABG pH POC ABG pO2 ABG pO2 ABG HCO3 ABG O2 Saturation ABG Base Excess Oxyhemoglobin Sodium Chloride 95.3 L Carbon Dioxide 43 H* BUN Creatinine 0.3 L Glucose 144 H POC Glucose
[2019-03-07] MEDS: SINGULAIR PO SCH (22:24)
[2019-03-08] MEDS: DUONEB *Not for PRN Use IH SCH ×3 (02:01→13:03)
[2019-03-08] MEDS: SOLU-Medrol IV SCH ×2 (02:22→08:05)
[2019-03-08 05:10] LABS: Hematocrit 33.2 % (30.3-42.9); Hemoglobin 10.6 gm/dl (10.1-14.3); Mean Corpuscular HGB Conc 32 % (30-34); Mean Corpuscular Volume 102 fl (79-97); Platelet Count 281 K/mm3 (140-440); Red Blood Count 3.26 M/mm3 (3.65-5.03); Red Cell Distribution Width 14.1 % (13.2-15.2)
[2019-03-08 05:30] LABS: BUN/Creatinine Ratio 57; Blood Urea Nitrogen 17 mg/dL (7-17); Calcium 8.4 mg/dL (8.4-10.2); Hemolysis Index 12
[2019-03-08] MEDS: APRESOLINE PO SCH (05:49)
[2019-03-08] MEDS: PULMICORT IH SCH (07:23)
[2019-03-08] MEDS: ROCEPHIN/NS 1 GM/50 ML 1 GM/50 ML BAG IV SCH (08:05)
[2019-03-08] MEDS: COLACE PO SCH (09:36)
[2019-03-08] MEDS: ZESTRIL PO SCH (09:36)
[2019-03-08] MEDS: XANAX PO SCH (09:36)
[2019-03-08] MEDS: MUCINEX ER PO SCH (09:36)
[2019-03-08] MEDS: LOVENOX SUB-Q SCH (09:36)
[2019-03-08] MEDS: COREG PO SCH (09:36)
[2019-03-08] MEDS: PROTONIX PO SCH (09:36)
[2019-03-08] MEDS: ZITHROMAX 500 MG in NACL 0.9% 250ML 250 ML IV SCH (09:37)
[2019-03-08] MEDS: SODIUM CHLORIDE FLUSH SYRINGE 10 ML IV SCH (09:37)
--- NOTE | 2019-03-08 10:53 | Discharge Summary ---
Providers - Providers Date of Admission: 02/28/19 19:44 Attending physician: LUCIA GUNTER MD 02/28/19 19:44 Consult to Physician [CONS] Routine Comment: Consulting Provider: DIEGO SHABAZZ Physician Instructions: Reason For Exam: ANTHONY, COPD AE 02/28/19 21:00 Consult to Case Management [CONS] Routine Services Needed at Discharge: DME Equipment Notified:: cm notified Additional Physician Instructions: NIV to help with improve quality of life and prevent future hospital re-admission. 03/02/19 11:55 Consult to Physician [CONS] Routine Comment: PT WAS BEING FOLLOWED BY GROUP Consulting Provider: CHRISTY MAX Physician Instructions: Reason For Exam: COPD, ANTHONY 03/07/19 12:14 Consult to Physician [CONS] Routine Comment: Consulting Provider: CHRISTY MAX Physician Instructions: Reason For Exam: copd exacerbation Hospitalization Condition: Stable Hospital course: Patient is a 63 yo woman with a history of anxiety, chronic respiratory failure on 3L on home O2 due to end stage COPD, CHF EF 40-45%, trace AR who presented with SOB and productive cough. 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 * Per cm, NIV has now been approved Acute Exacerbation COPD: wean High Flow nasal canula if possible. back to baseline Acute on chronic hypoxic respiratory failure with hypercapnia: treat with IV steriods, abx, nebs Hypertension: Continue to monitor BP, Resume home antihypertensive meds to optimize BP Hypernatremia: treat with free water, monitor bmp closely Anxiety-Continue Xanax DVT PPX-on Lovenox Disposition: continue inpatient care, downgraded to medsurg with remote and continuos pulse ox; Trilogy/NIV has been approved. Disposition: [id number]/[place]-06 HOME UNDER [facility] Time spent for discharge: 35 mins Core Measure Documentation - Palliative Care Palliative Care/ Comfort Measures: Not Applicable - Core Measures Any of the following diagnoses?: none Exam - Physical Exam Narrative exam: Gen: thin frail, ill appearing, Awake, Alert, Orientated x 3, on BIPAP HEENT: NCAT, EOMI, PERRL, OP Clear Neck: supple, no adenopathy, no thyromegaly, no JVD CVS/Heart: RRR, normal S1S2, pulses present bilaterally Chest/Lungs: Diminished BS bilaterally, Symmetrical chest expansion, good air entry bilaterally Tripod. GI/Abdomen: soft, NTND, good bowel sounds, no guarding or rebound /Bladder: no suprapubic tenderness, no CVA or paraspinal tenderness Extermity/Skin: no c/c/e, no obvious rash MSK: FROM x 4 Neuro: CN 2-12 grossly intact, no new focal deficits Psych: calm - Constitutional Vitals: Temp Pulse Resp BP Pulse Ox 97.4 F L 84 18 112/61 98 03/08/19 05:20 03/08/19 07:23 03/08/19 07:23 03/08/19 05:49 03/08/19 07:22 Plan Activity: advance as tolerated, fall precautions Diet: low fat Special Instructions: record daily weights, record daily BP diary Durable Medical Equipment Needed Upon Discharge: other (NIV) Follow up with: PEPE QUIROZ [Other] - 3-5 Days CAROL PRATER MD [Staff Physician] - 7 Days Prescriptions: Prednisone [predniSONE 10 mg (6-Day Pack, 21 Tabs)] 10 mg PO .TAPER #1 tab.ds.pk
[2019-03-08 11:38] VITALS: BP 143/80
--- NOTE | 2019-03-08 12:20 | Progress Note ---
Assessment and Plan 63 y/o female with acute on chronic respiratory failure secondary to COPD exacerbation and lack of positive pressure at night. 1. If discharged today, please send out on Prednisone 60 daily for 3 days, 40 daily for 4 days, 20 daily for 4 days and 10 daily for 4 days. 2. No abx therapy is needed at discharge 3. She should follow up with [facility] in the next 10-14 days 4. Continue supplemental O2 and attempt to refrain from those who are smoking. Subjective Date of service: 03/08/19 Principal diagnosis: COPD Interval history: Patient being discharged today. Pulm status is stable Objective Vital Signs - 12hr 03/08/19 03/08/19 03/08/19 02:11 04:00 05:20 Temperature 97.4 F L Pulse Rate 88 65 Pulse Rate [ 61 Anterior Bilateral Throughout] Respiratory 20 Rate Respiratory 20 Rate [Anterior Bilateral Throughout] Blood Pressure 112/61 O2 Sat by Pulse 98 Oximetry 03/08/19 03/08/19 03/08/19 05:49 07:22 07:23 Temperature Pulse Rate 78 Pulse Rate [ 84 Anterior Bilateral Throughout] Respiratory Rate Respiratory 18 Rate [Anterior Bilateral Throughout] Blood Pressure 112/61 O2 Sat by Pulse 98 Oximetry 03/08/19 11:10 Temperature 98.9 F Pulse Rate 115 H Pulse Rate [ Anterior Bilateral Throughout] Respiratory 20 Rate Respiratory Rate [Anterior Bilateral Throughout] Blood Pressure 143/80 O2 Sat by Pulse 92 Oximetry Constitutional: no acute distress, alert Eyes: non-icteric ENT: oropharynx moist Neck: supple Ascultation: Bilateral: diminished breath sounds, wheezes, other (Prolonged expiratory phase.) Percussion: Bilateral: not dull Cardiovascular: regular rate and rhythm Gastrointestinal: normoactive bowel sounds, soft, non-tender, non-distended Integumentary: normal Extremities: no cyanosis, no edema Neurologic: normal mental status, non-focal exam, pupils equal and round Psychiatric: other (Sleeping at this time.) CBC and BMP: 03/08/19 04:52 03/08/19 04:52 ABG, PT/INR, D-dimer: ABG POC ABG pH 7.346 (7.35-7.45) L 03/02/19 01:58 ABG pH 7.226 pH Units (7.350-7.450) L 02/28/19 22:00 ABG pCO2 122.8 mm Hg 02/28/19 22:00 POC ABG pO2 82 (80-105) 03/02/19 01:58 ABG pO2 71.7 mm Hg (80.0-90.0) L 02/28/19 22:00 POC ABG HCO3 47.5 (22-26 mml/L) 03/02/19 01:58 POC ABG Total CO2 > 50 (23-27mmol/L) 03/02/19 01:58 POC ABG O2 Sat 94 03/02/19 01:58 ABG O2 Saturation 94.5 % (95.0-99.0) L 02/28/19 22:00 Abnormal lab findings: Abnormal Labs 02/28/19 02/28/19 02/28/19 17:03 17:10 18:53 WBC RBC MCV 104 H MCH Seg Neutrophils % 75.6 H Seg Neuts % (Manual) Lymphocytes % (Manual) Lymphocytes # (Manual) POC ABG pH 7.174 L ABG pH POC ABG pO2 69 L ABG pO2 ABG HCO3 ABG O2 Saturation ABG Base Excess Oxyhemoglobin Sodium 146 H Chloride 94.8 L Carbon Dioxide 49 H* BUN Creatinine 0.3 L Glucose POC Glucose 02/28/19 03/01/19 03/01/19 22:00 04:20 04:20 WBC RBC MCV 105 H MCH 33 H Seg Neutrophils % Seg Neuts % (Manual) 96.0 H Lymphocytes % (Manual) 4.0 L Lymphocytes # (Manual) 0.2 L POC ABG pH ABG pH 7.226 L POC ABG pO2 ABG pO2 71.7 L ABG HCO3 49.8 H ABG O2 Saturation 94.5 L ABG Base Excess 16.6 H Oxyhemoglobin 91.0 L Sodium 147 H Chloride 93.8 L Carbon Dioxide 43 H* BUN 19 H Creatinine 0.4 L Glucose 124 H POC Glucose 03/01/19 03/01/19 03/01/19 08:36 16:31 20:33 WBC RBC MCV MCH Seg Neutrophils % Seg Neuts % (Manual) Lymphocytes % (Manual) Lymphocytes # (Manual) POC ABG pH 7.261 L 7.249 L ABG pH POC ABG pO2 108 H ABG pO2 ABG HCO3 ABG O2 Saturation ABG Base Excess Oxyhemoglobin Sodium Chloride Carbon Dioxide BUN Creatinine Glucose POC Glucose 262 H 03/02/19 03/02/19 03/02/19 01:58 04:29 04:29 WBC 13.2 H RBC 3.58 L MCV 101 H MCH Seg Neutrophils % Seg Neuts % (Manual) Lymphocytes % (Manual) Lymphocytes # (Manual) POC ABG pH 7.346 L ABG pH POC ABG pO2 ABG pO2 ABG HCO3 ABG O2 Saturation ABG Base Excess Oxyhemoglobin Sodium 136 L D Chloride 89.3 L Carbon Dioxide 41 H* BUN 36 H Creatinine Glucose 132 H POC Glucose 03/06/19 03/06/19 03/07/19 06:40 06:40 07:21 WBC 12.1 H RBC 3.23 L 3.48 L MCV 101 H 101 H MCH 33 H Seg Neutrophils % Seg Neuts % (Manual) Lymphocytes % (Manual) Lymphocytes # (Manual) POC ABG pH ABG pH POC ABG pO2 ABG pO2 ABG HCO3 ABG O2 Saturation ABG Base Excess Oxyhemoglobin Sodium Chloride 96.6 L Carbon Dioxide 39 H BUN 19 H Creatinine 0.4 L Glucose 148 H POC Glucose 03/07/19 03/08/19 03/08/19 07:21 04:52 04:52 WBC 13.9 H RBC 3.26 L MCV 102 H MCH Seg Neutrophils % Seg Neuts % (Manual) Lymphocytes % (Manual) Lymphocytes # (Manual) POC ABG pH ABG pH POC ABG pO2 ABG pO2 ABG HCO3 ABG O2 Saturation ABG Base Excess Oxyhemoglobin Sodium Chloride 95.3 L 96.4 L Carbon Dioxide 43 H* 40 H BUN Creatinine 0.3 L 0.3 L Glucose 144 H 157 H POC Glucose
== END 2019-03-08 13:15 | disposition home or self-care (01) | DRG 189 ==
LOC: ED 16:15 → IMCU 19:44 → 3A 03-04 13:45
PROVIDERS: ADMIT Internal Medicine; ATTEND Internal Medicine
PROC: 4A033R1 Measurement of Arterial Saturation, Peripheral, Percutaneous Approach (ICD-10-PCS; principal; 2019-02-28)
PROC: 5A09357 Assistance with Respiratory Ventilation, Less than 24 Consecutive Hours, Continuous Positive Airway Pressure (ICD-10-PCS; 2019-02-28)
PROC: 5A09357 Assistance with Respiratory Ventilation, Less than 24 Consecutive Hours, Continuous Positive Airway Pressure (ICD-10-PCS; 2019-03-01)
PROC: 5A09357 Assistance with Respiratory Ventilation, Less than 24 Consecutive Hours, Continuous Positive Airway Pressure (ICD-10-PCS; 2019-03-02)
PROC: 5A09357 Assistance with Respiratory Ventilation, Less than 24 Consecutive Hours, Continuous Positive Airway Pressure (ICD-10-PCS; 2019-03-03)
PROC: 5A09357 Assistance with Respiratory Ventilation, Less than 24 Consecutive Hours, Continuous Positive Airway Pressure (ICD-10-PCS; 2019-03-04)
PROC: 5A09357 Assistance with Respiratory Ventilation, Less than 24 Consecutive Hours, Continuous Positive Airway Pressure (ICD-10-PCS; 2019-03-06)
PROC: 5A09357 Assistance with Respiratory Ventilation, Less than 24 Consecutive Hours, Continuous Positive Airway Pressure (ICD-10-PCS; 2019-03-07)
PROC: 5A09357 Assistance with Respiratory Ventilation, Less than 24 Consecutive Hours, Continuous Positive Airway Pressure (ICD-10-PCS; 2019-03-08)
DX: J96.21 Acute and chronic respiratory failure with hypoxia (principal); E87.0 Hyperosmolality and hypernatremia; J96.22 Acute and chronic respiratory failure with hypercapnia; J43.2 Centrilobular emphysema; I10 Essential (primary) hypertension; F41.9 Anxiety disorder, unspecified; J20.9 Acute bronchitis, unspecified; K21.9 Gastro-esophageal reflux disease without esophagitis; Z99.81 Dependence on supplemental oxygen; Z87.891 Personal history of nicotine dependence; Z88.8 Allergy status to other drugs, medicaments and biological substances; Z91.010 Allergy to peanuts; Z91.013 Allergy to seafood; Z79.51 Long term (current) use of inhaled steroids; Z79.899 Other long term (current) drug therapy
CPT/HCPCS: 36415; 36600; 71045; 80048; 82803; 82962; 83880; 84484; 85007; 85025; 85027; 87040; 93005; 93010; 94640; 94660; 94760; 96374; G0378; J0456; J0696; J1650; J2930; J7040; J7050